=== PATIENT | male | born 1950 | race African-American/Black ===

== ENCOUNTER 2017-04-25 04:46 | Inpatient (IN) | payer MEDICARE ==
[~2017-04-25] VITALS: Ht 188 cm; Wt 59.4 kg
[2017-04-25] MEDS ORDERED: LANTUS SOL100 UNIT/1 SUBQ (04:49)
[2017-04-25] MEDS ORDERED: METFORMIN HCL500 M1 ORAL (04:49)
[2017-04-25 05:03] VITALS: BP 156/82
[2017-04-25 05:37] LABS: BASOPHILS % (AUTO) 1.4 % (0.0-2.0); EOSINOPHILS % (AUTO) 1.2 % (0.0-3.0); LYMPHOCYTES % (AUTO) 27.2 % (20.0-45.0); MEAN CORPUSCULAR HEMOGLOBIN 29.8 PG (27.0-31.0); MEAN CORPUSCULAR HGB CONC 32.1 G/DL (32.0-36.0); MEAN CORPUSCULAR VOLUME 93 FL (80-99); MEAN PLATELET VOLUME 6.2 FL (6.5-10.1); MONOCYTES % (AUTO) 9.8 % (1.0-10.0); NEUTROPHILS % (AUTO) 60.4 % (45.0-75.0); PLATELET COUNT 280 K/UL (150-450); RED BLOOD COUNT 3.76 M/UL (4.70-6.10); RED CELL DISTRIBUTION WIDTH 15.9 % (11.6-14.8); WHITE BLOOD COUNT 7.6 K/UL (4.8-10.8)
--- NOTE | 2017-04-25 05:45 | Emergency Room Report ---
History of Present Illness General Chief Complaint: Abnormal Labs Source: Patient, EMS Present Illness HPI Patient present by paramedics for reports of altered mental status Patient was found to be hypoglycemic by the paramedics glucose down into the 30s after being given dextrose he did improve and become more responsive here the patient does not have any recollection of the episode At this time he is a bit slow to respond however is answering questions appropriately Denies any headache denies any chest pain or shortness of breath He does have a history of diabetes and takes metformin along with subcutaneous insulin Denies any vomiting or diarrhea denies any fevers or chills Denies any change in his eating habits patient cannot recall those any change in medications Allergies: Coded Allergies: No Known Allergies (Unverified , 04/25/17) Patient History Past Medical History: see triage record Pertinent Family History: none Reviewed Nursing Documentation: PMH: Agreed, PSxH: Agreed Nursing Documentation-PMH Past Medical History: No History, Except For Hx Hypertension: Yes Hx Diabetes: Yes Review of Systems All Other Systems: limited - Other than the ones mentioned in the history of present illness all others are reviewed however they do stay limited due to the patient's mental status Physical Exam Vital Signs Date Time Temp Pulse Resp B/P (MAP) Pulse Ox O2 Delivery O2 Flow Rate FiO2 04/25/17 04:38 98.6 64 14 172/84 100 Room Air Sp02 EP Interpretation: reviewed, normal General Appearance: no apparent distress Head: normocephalic, atraumatic Eyes: bilateral eye PERRL, bilateral eye EOMI ENT: hearing grossly normal, normal pharynx Neck: full range of motion, supple Respiratory: lungs clear, normal breath sounds Cardiovascular #1: irregularly irregular Gastrointestinal: normal bowel sounds, non tender, soft Musculoskeletal: normal inspection Neurologic: alert, responsive - Some mild confusion Psychiatric: normal inspection Skin: normal color, no rash, warm/dry Lymphatic: no adenopathy Medical Decision Making Diagnostic Impression: Primary Impression: Hypoglycemia Additional Impression: Atrial fibrillation ER Course Patient is a fairly complex patient with multiple differential to consideration including but not limited to cardiac cardiopulmonary and vascular emergencies Patient's history of present illness is limited secondary to the patient's inability to provide history Have not been any other family members present Patient does not recall having the diagnosis of an irregular heart rate there is no question of this being a new-onset atrial fibrillation however the rate appears to be well-controlled EKG however is also abnormal with ST changes Patient continues to deny any chest pain Baseline blood work are obtained the also obtain CT head patient however is not candidate for any thrombolytic therapy given the presentation and criteria And otherwise requires further inpatient care Labs Test 04/25/17 05:05 White Blood Count 7.6 K/UL (4.8-10.8) Red Blood Count 3.76 M/UL (4.70-6.10) Hemoglobin 11.2 G/DL (14.2-18.0) Hematocrit 34.9 % (42.0-52.0) Mean Corpuscular Volume 93 FL (80-99) Mean Corpuscular Hemoglobin 29.8 PG (27.0-31.0) Mean Corpuscular Hemoglobin Concent 32.1 G/DL (32.0-36.0) Red Cell Distribution Width 15.9 % (11.6-14.8) Platelet Count 280 K/UL (150-450) Mean Platelet Volume 6.2 FL (6.5-10.1) Neutrophils (%) (Auto) 60.4 % (45.0-75.0) Lymphocytes (%) (Auto) 27.2 % (20.0-45.0) Monocytes (%) (Auto) 9.8 % (1.0-10.0) Eosinophils (%) (Auto) 1.2 % (0.0-3.0) Basophils (%) (Auto) 1.4 % (0.0-2.0) Sodium Level 144 mEQ/L (135-145) Potassium Level 3.8 mEQ/L (3.4-4.9) Chloride Level 100 mEQ/L (98-107) Carbon Dioxide Level 29 mEQ/L (20-30) Anion Gap 15 (5-15) Blood Urea Nitrogen 23 mg/dL (7-23) Creatinine 2.5 mg/dL (0.7-1.2) Estimat Glomerular Filtration Rate 31.5 mL/min (>60) Glucose Level 74 mg/dL (74-106) Calcium Level 10.0 mg/dL (8.6-10.2) Total Bilirubin 0.2 mg/dL (0.0-1.2) Aspartate Amino Transf (AST/SGOT) 13 U/L (5-40) Alanine Aminotransferase (ALT/SGPT) 8 U/L (3-41) Alkaline Phosphatase 130 U/L (40-129) Total Creatine Kinase 217 U/L (38-174) Creatine Kinase MB 4.7 ng/mL (< 6.7) Creatine Kinase MB Relative Index 2.1 Troponin I < 0.30 ng/mL (<=0.30) Total Protein 8.7 g/dL (6.6-8.7) Albumin 4.7 g/dL (3.5-5.2) Globulin 4.0 g/dL Albumin/Globulin Ratio 1.1 (1.0-2.7) EKG Diagnostic Results Rate: normal Rhythm: other - atrial fibrillation ST Segments: other - nonspecific ST and T-wave changes Rhythm Strip Diag. Results EP Interpretation: yes Rate: 88 Rhythm: no PVC's, no ectopy, other - irregularly irregular Chest X-Ray Diagnostic Results Chest X-Ray Diagnostic Results : Chest X-Ray Ordered: Yes # of Views/Limited/Complete: 1 View Indication: Chest Pain EP Interpretation: Yes Interpretation: no consolidation, no effusion, no pneumothorax Impression: No acute disease Interpreting ER Provider: Kari Desai, CT/MRI/US Diagnostic Results CT/MRI/US Diagnostic Results : Impression CT head:nad Last Vital Signs Date Time Temp Pulse Resp B/P (MAP) Pulse Ox O2 Delivery O2 Flow Rate FiO2 04/25/17 05:03 98.6 96 21 156/82 100 Room Air Status: improved Disposition: ADMITTED INPATIENT Condition: Serious Referrals: NOT CHOSEN IPA/,REFERRING (PCP) KARI DESAI D.O. Apr 25, 2017 05:45
[2017-04-25 05:49] LABS: TROPONIN I < 0.30 ng/mL (<=0.30)
[2017-04-25 05:50] LABS: ALBUMIN/GLOBULIN RATIO 1.1 (1.0-2.7); CREATININE 2.5 mg/dL (0.7-1.2); GLOMERULAR FILTRATION RATE 31.5 mL/min (>60); POTASSIUM 3.8 mEQ/L (3.4-4.9); TOTAL PROTEIN 8.7 g/dL (6.6-8.7)
[2017-04-25 06:00] LABS: CKMB 4.7 ng/mL (< 6.7)
[2017-04-25 07:06] LABS: PROTHROMBIN TIME 10.3 SEC (9.30-11.50)
[2017-04-25 08:04] VITALS: BP 142/75
[2017-04-25] MEDS ORDERED: NEURONTIN300 MG ORAL (08:34)
[2017-04-25] MEDS ORDERED: LIPITOR80 MG ORAL (08:35)
[2017-04-25] MEDS ORDERED: Enoxaparin 100mg Inj SUBQ ONE (09:00)
[2017-04-25] MEDS ORDERED: Enoxaparin 100mg Inj SUBQ SCH (09:00)
--- NOTE | 2017-04-25 09:00 | Diagnostic Imaging Report ---
Indication: Altered mental status Technique: Contiguous 5 mm thick transaxial imaging of the head obtained in a Siemens Sensation [address] scanner. Soft tissue and bone windows generated. Total Dose length Product (DLP): [address] Dose Index Volume (CTDIvol): 70.38, 0.15 mGy Comparison: none Findings: There is mild prominence of the ventricles, basal cisterns, and cerebral sulci consistent with atrophy. Mild, nonspecific, white matter hypoattenuation is noted throughout the brain consistent with chronic small vessel disease. There is no midline shift, edema, acute hemorrhage, mass effect, or abnormal extra-axial fluid collections. Bones and extra osseous soft tissues are unremarkable. Impression: No acute intracranial bleed, mass effect or edema. Mild atrophy of the brain. Nonspecific white matter hypoattenuation probably due to chronic small vessel disease. [facility] has communicated the preliminary results to the Emergency Department. Their findings are largely concordant with this report. The CT scanner at [facility] is accredited by the [employer] and the scans are performed using dose optimization techniques as appropriate to a performed exam including Automatic Exposure control.
[2017-04-25 10:25] VITALS: BP 142/75
--- NOTE | 2017-04-25 11:25 | Diagnostic Imaging Report ---
Indication: Dyspnea Comparison: None A single view chest radiograph was obtained. Findings: Cardiomediastinal appearance is within normal limits for age. Pulmonary vascularity is appropriate. The diaphragmatic contour is smooth and costophrenic angles are sharp. No pleural effusions are identified. The bones are unremarkable. Impression: No acute findings
[2017-04-25 11:29] VITALS: BP 134/83
[2017-04-25] MEDS ORDERED: COREG3.125 MG ORAL (13:20)
[2017-04-25] MEDS ORDERED: ATORVASTATIN CA10 MG ORAL (13:20)
[2017-04-25] MEDS ORDERED: NORVASC2.5 MG ORAL (13:20)
[2017-04-25] MEDS ORDERED: TAMSULOSIN HCL0.4 MG ORAL (13:20)
[2017-04-25] MEDS ORDERED: FINASTERIDE1 MG PO (13:20)
--- NOTE | 2017-04-25 13:27 | Consultation ---
History of Present Illness General Date patient seen: Apr 25, 2017 Chief Complaint: Abnormal Labs Referring physician: Dr. Medellin Reason for Consultation: inpatient manaqement Present Illness HPI 66 year old male with hx of DM, HTN, R BKA brought in by paramedics for reports of altered mental status Patient was found to be hypoglycemic by the paramedics glucose down into the 30s after being given dextrose he did improve and become more responsive. Pt was found to be in Afib and admitted to telemetry for rapid afib and hypoglycemia. Currently pt is comfortable and doesn't have any acute complains. Allergies: Coded Allergies: No Known Allergies (Unverified , 04/25/17) Medication History Scheduled Amlodipine Besylate (Norvasc), Unknown Dose ORAL DAILY, (Reported) Atorvastatin (Lipitor), 80 MG ORAL BEDTIME, (Reported) Atorvastatin Calcium* (Lipitor*), 10 MG ORAL BEDTIME, (Reported) Carvedilol (Coreg), 3.125 MG ORAL EVERY 12 HOURS, (Reported) Gabapentin (Neurontin), 300 MG ORAL BEDTIME, (Reported) Metformin Hcl* (Metformin Hcl*), 500 MG ORAL TWICE A DAY, (Reported) Tamsulosin Hcl (Tamsulosin Hcl*), 0.4 MG ORAL BEDTIME, (Reported) Miscellaneous Medications Finasteride (Finasteride), 1 MG PO, (Reported) Discontinued Medications Insulin Glargine (Lantus), 14 SUBQ BEDTIME, (Reported) Discontinued Reason: MD discontinued med Patient History Healthcare decision maker Resuscitation status Advanced Directive on File Past Medical/Surgical History Past Medical/Surgical History: (1) HTN (hypertension) (2) Diabetes mellitus Review of Systems All Other Systems: negative except mentioned in HPI Physical Exam General Appearance: cachetic Lines, tubes and drains: peripheral HEENT: normocephalic, atraumatic Respiratory/Chest: chest wall non-tender, normal breath sounds Cardiovascular/Chest: normal peripheral pulses, regular rhythm Abdomen: normal bowel sounds, non tender Genitourinary/Rectal: normal genital exam, normal rectal exam Extremities: normal range of motion Last 24 Hour Vital Signs Date Time Temp Pulse Resp B/P (MAP) Pulse Ox O2 Delivery O2 Flow Rate FiO2 04/25/17 11:29 97.7 94 20 134/83 100 Room Air 04/25/17 10:25 96.4 106 20 142/75 99 Room Air 04/25/17 10:25 117 18 151/82 100 Room Air 04/25/17 08:36 109 20 Room Air 04/25/17 08:04 96.4 106 21 142/75 99 Room Air 04/25/17 05:03 98.6 96 21 156/82 100 Room Air 04/25/17 04:38 98.6 64 14 172/84 100 Room Air Laboratory Tests Test 04/25/17 05:05 04/25/17 06:02 04/25/17 07:00 White Blood Count 7.6 K/UL (4.8-10.8) Red Blood Count 3.76 M/UL (4.70-6.10) L Hemoglobin 11.2 G/DL (14.2-18.0) L Hematocrit 34.9 % (42.0-52.0) L Mean Corpuscular Volume 93 FL (80-99) Mean Corpuscular Hemoglobin 29.8 PG (27.0-31.0) Mean Corpuscular Hemoglobin Concent 32.1 G/DL (32.0-36.0) Red Cell Distribution Width 15.9 % (11.6-14.8) H Platelet Count 280 K/UL (150-450) Mean Platelet Volume 6.2 FL (6.5-10.1) L Neutrophils (%) (Auto) 60.4 % (45.0-75.0) Lymphocytes (%) (Auto) 27.2 % (20.0-45.0) Monocytes (%) (Auto) 9.8 % (1.0-10.0) Eosinophils (%) (Auto) 1.2 % (0.0-3.0) Basophils (%) (Auto) 1.4 % (0.0-2.0) Sodium Level 144 mEQ/L (135-145) Potassium Level 3.8 mEQ/L (3.4-4.9) Chloride Level 100 mEQ/L (98-107) Carbon Dioxide Level 29 mEQ/L (20-30) Anion Gap 15 (5-15) Blood Urea Nitrogen 23 mg/dL (7-23) Creatinine 2.5 mg/dL (0.7-1.2) H Estimat Glomerular Filtration Rate 31.5 mL/min (>60) Glucose Level 74 mg/dL (74-106) Calcium Level 10.0 mg/dL (8.6-10.2) Total Bilirubin 0.2 mg/dL (0.0-1.2) Aspartate Amino Transf (AST/SGOT) 13 U/L (5-40) Alanine Aminotransferase (ALT/SGPT) 8 U/L (3-41) Alkaline Phosphatase 130 U/L (40-129) H Total Creatine Kinase 217 U/L (38-174) H Creatine Kinase MB 4.7 ng/mL (< 6.7) Creatine Kinase MB Relative Index 2.1 Troponin I < 0.30 ng/mL (<=0.30) Total Protein 8.7 g/dL (6.6-8.7) Albumin 4.7 g/dL (3.5-5.2) Globulin 4.0 g/dL Albumin/Globulin Ratio 1.1 (1.0-2.7) Prothrombin Time 10.3 SEC (9.30-11.50) Prothromb Time International Ratio 1.0 (0.9-1.1) Activated Partial Thromboplast Time 32 SEC (23-33) Urine Opiates Screen Negative (NEGATIVE) Urine Barbiturates Screen Negative (NEGATIVE) Phencyclidine (PCP) Screen Negative (NEGATIVE) Urine Amphetamines Screen Negative (NEGATIVE) Urine Benzodiazepines Screen Negative (NEGATIVE) Urine Cocaine Screen Negative (NEGATIVE) Urine Marijuana (THC) Screen Positive (NEGATIVE) H Height (Feet): 6 Height (Inches): 2.00 Weight (Pounds): 189 Medications Current Medications Medications (Trade) Dose Ordered Sig/Dragan Route PRN Reason Start Time Stop Time Status Last Admin Dose Admin Acetaminophen (Tylenol) 650 mg Q6H PRN ORAL headache 04/25/17 11:30 05/25/17 11:29 Atorvastatin Calcium (Lipitor) 80 mg BEDTIME ORAL 04/25/17 21:00 05/25/17 20:59 Dextrose (Dextrose 50%) STAT PRN IV Hypoglycemia 04/25/17 11:30 05/25/17 11:29 Gabapentin (Neurontin) 300 mg BEDTIME ORAL 04/25/17 21:00 05/25/17 20:59 Heparin Sodium (Porcine) (Heparin 5000 units/ml) 5,000 units EVERY 8 HOURS SUBQ 04/25/17 14:00 05/25/17 13:59 Insulin Aspart (NovoLOG) BEFORE MEALS AND HS SUBQ 04/25/17 16:30 05/25/17 16:29 Metformin HCl (Glucophage) 500 mg BID ORAL 04/26/17 09:00 05/26/17 08:59 UNV Assessment/Plan Problem List: (1) Hypoglycemia ICD Codes: E16.2 - Hypoglycemia, unspecified SNOMED: 599433694 (2) Atrial fibrillation ICD Codes: I48.91 - Unspecified atrial fibrillation SNOMED: 76254146 (3) Altered level of consciousness ICD Codes: R40.4 - Transient alteration of awareness SNOMED: 9345066 (4) HTN (hypertension) ICD Codes: I10 - Essential (primary) hypertension SNOMED: 21195395 Assessment/Plan sliding scale renal studies cardiac evaluation heparin drip monitor BP Cardizem prn for tachycardi BRIAN HERNANDEZ Apr 25, 2017 13:27
[2017-04-25] MEDS: NovoLOG Insulin Flexpen SUBQ SCH ×3 (13:29→21:02)
[2017-04-25] MEDS ORDERED: Heparin 5000 units/ml inj SUBQ SCH (14:00)
[2017-04-25] MEDS ORDERED: Diltiazem 25mg/5ml IV PRN (14:30)
--- NOTE | 2017-04-25 15:24 | History & Physical ---
History and Physical History & Physicial Dictated for Int Med-Dr Serrato no. [id number]. MARYANNE SMALLS Apr 25, 2017 15:24
[2017-04-25 15:25] VITALS: BP 157/79
[2017-04-25] MEDS ORDERED: NovoLOG Insulin Flexpen SUBQ SCH (16:30)
[2017-04-25] MEDS ORDERED: metFORMIN 500mg tab ORAL SCH (18:00)
[2017-04-25] MEDS ORDERED: Heparin 25,000u/D5W 500ml 500 ML IV SCH (18:30)
--- NOTE | 2017-04-25 18:55 | Cardiac Electrophysiology PN ---
Subjective Subjective [id number]. HTN, FIB. Objective Last 24 Hour Vital Signs Date Time Temp Pulse Resp B/P (MAP) Pulse Ox O2 Delivery O2 Flow Rate FiO2 04/25/17 15:25 98.1 79 20 157/79 99 Room Air 04/25/17 12:00 100 04/25/17 11:29 97.7 94 20 134/83 100 Room Air 04/25/17 10:25 96.4 106 20 142/75 99 Room Air 04/25/17 10:25 117 18 151/82 100 Room Air 04/25/17 08:36 109 20 Room Air 04/25/17 08:04 96.4 106 21 142/75 99 Room Air 04/25/17 05:03 98.6 96 21 156/82 100 Room Air 04/25/17 04:38 98.6 64 14 172/84 100 Room Air Intake and Output 04/25/17 04/26/17 19:00 07:00 Intake Total 480 ml Balance 480 ml Intake Oral 480 ml Laboratory Tests Test 04/25/17 05:05 04/25/17 06:02 04/25/17 07:00 04/25/17 14:50 White Blood Count 7.6 K/UL (4.8-10.8) Red Blood Count 3.76 M/UL (4.70-6.10) L Hemoglobin 11.2 G/DL (14.2-18.0) L Hematocrit 34.9 % (42.0-52.0) L Mean Corpuscular Volume 93 FL (80-99) Mean Corpuscular Hemoglobin 29.8 PG (27.0-31.0) Mean Corpuscular Hemoglobin Concent 32.1 G/DL (32.0-36.0) Red Cell Distribution Width 15.9 % (11.6-14.8) H Platelet Count 280 K/UL (150-450) Mean Platelet Volume 6.2 FL (6.5-10.1) L Neutrophils (%) (Auto) 60.4 % (45.0-75.0) Lymphocytes (%) (Auto) 27.2 % (20.0-45.0) Monocytes (%) (Auto) 9.8 % (1.0-10.0) Eosinophils (%) (Auto) 1.2 % (0.0-3.0) Basophils (%) (Auto) 1.4 % (0.0-2.0) Sodium Level 144 mEQ/L (135-145) Potassium Level 3.8 mEQ/L (3.4-4.9) Chloride Level 100 mEQ/L (98-107) Carbon Dioxide Level 29 mEQ/L (20-30) Anion Gap 15 (5-15) Blood Urea Nitrogen 23 mg/dL (7-23) Creatinine 2.5 mg/dL (0.7-1.2) H Estimat Glomerular Filtration Rate 31.5 mL/min (>60) Glucose Level 74 mg/dL (74-106) Calcium Level 10.0 mg/dL (8.6-10.2) Total Bilirubin 0.2 mg/dL (0.0-1.2) Aspartate Amino Transf (AST/SGOT) 13 U/L (5-40) Alanine Aminotransferase (ALT/SGPT) 8 U/L (3-41) Alkaline Phosphatase 130 U/L (40-129) H Total Creatine Kinase 217 U/L (38-174) H Creatine Kinase MB 4.7 ng/mL (< 6.7) Creatine Kinase MB Relative Index 2.1 Troponin I < 0.30 ng/mL (<=0.30) Total Protein 8.7 g/dL (6.6-8.7) Albumin 4.7 g/dL (3.5-5.2) Globulin 4.0 g/dL Albumin/Globulin Ratio 1.1 (1.0-2.7) Prothrombin Time 10.3 SEC (9.30-11.50) Prothromb Time International Ratio 1.0 (0.9-1.1) Activated Partial Thromboplast Time 32 SEC (23-33) 34 SEC (23-33) H Urine Opiates Screen Negative (NEGATIVE) Urine Barbiturates Screen Negative (NEGATIVE) Phencyclidine (PCP) Screen Negative (NEGATIVE) Urine Amphetamines Screen Negative (NEGATIVE) Urine Benzodiazepines Screen Negative (NEGATIVE) Urine Cocaine Screen Negative (NEGATIVE) Urine Marijuana (THC) Screen Positive (NEGATIVE) MADI TURNER Apr 25, 2017 18:55
[2017-04-25 20:00] VITALS: BP 159/80
[2017-04-25 20:48] LABS: APPEARANCE,URINE CLEAR; KETONES,URINE NEGATIVE (NEGATIVE); LEUKOCYTE ESTERASE ,URINE NEGATIVE (NEGATIVE); NITRITE,URINE NEGATIVE (NEGATIVE); PH,URINE 6 (4.5-8.0); PROTEIN,URINE 3+ (NEGATIVE); UROBILINOGEN,URINE NORMAL MG/DL (0.0-1.0)
[2017-04-25] MEDS: Atorvastatin 80mg tab ORAL SCH (20:58)
[2017-04-25 20:59] LABS: WBC,URINE 0-2 /HPF (0 - 0)
[2017-04-25 21:00] LABS: BACTERIA,URINE OCCASIONAL /HPF; SQUAMOUS EPITHELIAL CELL,UR FEW /LPF (NONE/OCC)
[2017-04-25] MEDS ORDERED: Atorvastatin 80mg tab ORAL SCH (21:00)
--- NOTE | 2017-04-25 21:15 | History and Physical Report ---
DATE OF ADMISSION: 04/25/2017 CHIEF COMPLAINT: The patient is a 66-year-old male, presents with a chief complaint of altered mental status. HISTORY OF PRESENT ILLNESS: The patient has a history of diabetes type 2. The patient states he ate a snack last evening around 10 o'clock. The patient then went to the restroom. The patient began to feel dizzy. The patient states he was unable to walk. The patient had given himself his usual insulin dose. The patient lives with a roommate. Roommate called 911 after the patient became altered. Upon arrival at the patient's home, the patient's blood sugar was in the 30s. The patient was given D50 in the field. The patient presented to [facility] emergency room. The patient continued to have altered mental status. The patient was admitted for hypoglycemia and altered mental status. PAST MEDICAL HISTORY: Significant for: 1. Type 2 diabetes. 2. Hypertension. 3. Hypercholesterolemia. 4. History of atrial fibrillation. PAST SURGICAL HISTORY: Significant for right [id number] amputation. CURRENT MEDICATIONS: 1. Norvasc 2.5 mg one tablet p.o. daily. 2. Atorvastatin 80 mg one tablet p.o. at bedtime. 3. Carvedilol 3.125 mg one tablet p.o. twice daily. 4. Finasteride 1 mg one tablet p.o. daily. 5. Neurontin 300 mg one tablet p.o. at bedtime. 6. Metformin 500 mg one tablet p.o. twice daily. 7. Flomax 0.4 mg one tablet p.o. at bedtime. 8. Insulin of an unknown dose before meals. ALLERGIES: No known drug allergies. SOCIAL HISTORY: The patient is a . The patient lives with a roommate. The patient admits to tobacco use one pack per day. The patient denies alcohol use. The patient is disabled. REVIEW OF SYSTEMS: Constitutional: The patient denies weight loss or weight gain. The patient denies fevers or chills. HEENT: The patient denies ear or throat pain. The patient denies headache. Cardiovascular: The patient denies palpitations or chest pain. Chest: The patient denies wheeze or shortness of breath. Abdomen: The patient denies nausea, vomiting, diarrhea, or constipation. Genitourinary: The patient denies dysuria or increased frequency of urination. Neuromuscular: The patient complains of altered mental status as above. The patient denies seizures or generalized weakness. PHYSICAL EXAMINATION: VITAL SIGNS: Temperature 98.6 degrees, respirations 14, pulse 64, and blood pressure 172/84. GENERAL: The patient is a well-developed and well-nourished thin-appearing male, in no apparent distress. HEENT: Eyes, pupils equal and responsive to light and accommodation. Extraocular movements are intact. NECK: Supple without lymphadenopathy. CHEST: Lungs are clear to auscultation bilaterally without wheezes or rales. CARDIOVASCULAR: Regular rate. S1 and S2 are normal without murmurs, rubs, or gallops. ABDOMEN: Soft, nontender, and nondistended. Positive bowel sounds. No evidence of hepatosplenomegaly. Currently, no rebound or guarding noted. EXTREMITIES: Negative for clubbing, cyanosis, or edema. RECTAL/GENITAL: Refused. NEUROLOGIC: Cranial nerves II through XII are grossly intact without focal deficits. Motor strength is 5/5 bilaterally. Deep tendon reflexes are 2+ plantar. LABORATORY STUDIES: WBC 7.6, hemoglobin 11.2, hematocrit 34.9, and platelets 280,000. Sodium 144, potassium 3.8, chloride 100, CO2 29, BUN 23, creatinine 2.5, and glucose 74. Troponin less than 0.3. EKG showed atrial fibrillation with a ventricular rate of approximately 90 beats per minute. ASSESSMENT: This is a 66-year-old male. 1. Diabetes type 2. 2. Hypoglycemia. 3. Altered mental status. 4. Hypertension. 5. Hypercholesterolemia. 6. New onset atrial fibrillation. TREATMENT: 1. Altered mental status/hypoglycemia. The patient has received D50 in the field. The patient is currently on a regular insulin sliding scale. The patient has been restarted on metformin. 2. Hypertension. Continue Cardizem as above. 3. Hypercholesterolemia. Continue Lipitor as above. 4. Atrial fibrillation. Cardiology consultation was obtained with Dr. Pradeep Ortiz. We will follow recommendations of Dr. Ortiz. 5. History of right [id number] amputation. Felton Medellin M.D. DR: CHRISTOS JOB#: [id number] CC:
[2017-04-25] MEDS: Tamsulosin 0.4mg cap ORAL SCH (22:21)
[2017-04-26] VITALS (9 sets, daily range): BP systolic 138–178; BP diastolic 65–92
[2017-04-26] MEDS: NovoLOG Insulin Flexpen SUBQ SCH ×4 (06:45→21:00)
--- NOTE | 2017-04-26 06:45 | Consultation ---
DATE OF CONSULTATION: 04/25/2017 ELECTROPHYSIOLOGY CONSULTATION HISTORY OF PRESENT ILLNESS: The patient is a 66-year-old gentleman with a history of hypertension, who was brought in by paramedics for altered mental status. The patient was felt to be hypoglycemic with glucose down to 30s. The patient received dextrose that improved and became more responsive. However, the patient was found to be in atrial fibrillation and was admitted and a Cardiology consultation was obtained for further evaluation and management. Per paramedics, her blood pressure was 172/84. SOCIAL HISTORY: He does not smoke or drink alcohol. FAMILY HISTORY: Noncontributory. REVIEW OF SYSTEMS: Negative other than what was mentioned in the history of present illness. He denies prior myocardial infarction or congestive heart failure or atrial fibrillation. PHYSICAL EXAMINATION: VITAL SIGNS: Blood pressure is 157/79, pulse 79, respirations 20, and temperature 98.1 degrees. HEAD AND NECK: Shows no JVD. LUNGS: Coarse rhonchi. CARDIOVASCULAR: Shows regular S1 and S2 with no gallop or murmur. ABDOMEN: Soft. EXTREMITIES: There is 1+ pitting edema. DIAGNOSTIC DATA: His EKG shows atrial fibrillation with rate of 88 with inferolateral ischemia. LABORATORY DATA: White count of 7.7, hemoglobin 11.2, hematocrit 35, and platelet count of 280,000. Sodium 141, potassium 3.8, BUN of 23, creatinine 2.5, and glucose of 74. Troponin is negative. Urine toxicology positive for marijuana. ASSESSMENT AND PLAN: 1. Atrial fibrillation. This is newly diagnosed. The patient is on heparin drip per protocol. Start the patient on low-dose metoprolol 25 mg b.i.d. to prevent atrial fibrillation with rapid ventricular response. I will watch the patient on telemetry. In view of history of hypertension, he probably would need long-term anticoagulation. 2. Hyperlipidemia. 3. diabetes, on insulin. Thank you very much, Dr. Serrato for allowing me to participate in the care of this patient. Please do not hesitate to contact me for any questions regarding my evaluation. Pradeep Ortiz M.D. DR: REZA JOB#: [id number] CC:
[2017-04-26 07:33] LABS: BASOPHILS % (AUTO) 0.8 % (0.0-2.0); EOSINOPHILS % (AUTO) 1.3 % (0.0-3.0); LYMPHOCYTES % (AUTO) 21.6 % (20.0-45.0); MEAN CORPUSCULAR HEMOGLOBIN 30.4 PG (27.0-31.0); MEAN CORPUSCULAR HGB CONC 32.5 G/DL (32.0-36.0); MEAN CORPUSCULAR VOLUME 94 FL (80-99); MEAN PLATELET VOLUME 6.4 FL (6.5-10.1); MONOCYTES % (AUTO) 11.9 % (1.0-10.0); NEUTROPHILS % (AUTO) 64.4 % (45.0-75.0); PLATELET COUNT 229 K/UL (150-450); RED BLOOD COUNT 2.99 M/UL (4.70-6.10); WHITE BLOOD COUNT 10.5 K/UL (4.8-10.8)
--- NOTE | 2017-04-26 07:39 | Pulmonology Progress Note ---
Assessment/Plan Assessment/Plan ASSESSMENT acute metabolic encephalopathy 2 to hypoglycemia hypoglycemia -resolved A fib with RVR -converted to SR acute renal failure on CRI ( due to bladder outlet obstruction) anemia DM HTN R BKA stump wound BLE pain severe protein calorie malnutrition urinary retention bladder outlet obstruction PLAN OF CARE tele CT head no acute IC pathology off heparin gtt , converted to NSR BP management cardio follows ECHO with pEF 55% and RVSP of 16 renal US with PVR 922 cc and evidence of bladder outlet obstruction monitor renal parameters, lytes creat trending down O2 prn to keep sat above 92% pulmonary toilet BS management with SS of insulin, check HgbA1c , dc Metformin ( creat high) DVT prophylaxis pain management Venous and Arterial Duplex BLE wound nurse eval for R BKA stump wound care as per wound nurse recommendations anemia w/up, monitor HH, transfuse prn urology consult pending ( dr Cruz) started on Flomax dietary eval, check prealbumin case discussed and evaluated by supervising physician Subjective Allergies: Coded Allergies: No Known Allergies (Unverified , 04/25/17) Subjective converted to NSR off Heparin gtt c/o BLE pain denies chest pain, SOB HH trending down 922 cc on renal US Objective Last 24 Hour Vital Signs Date Time Temp Pulse Resp B/P (MAP) Pulse Ox O2 Delivery O2 Flow Rate FiO2 04/26/17 04:20 98.1 67 20 155/73 100 Room Air 04/26/17 04:00 80 04/26/17 00:10 70 155/65 04/26/17 00:05 98.0 66 20 164/69 100 Room Air 04/25/17 20:00 97.9 73 20 159/80 100 Room Air 04/25/17 20:00 77 04/25/17 16:00 74 04/25/17 15:25 98.1 79 20 157/79 99 Room Air 04/25/17 12:00 100 04/25/17 11:29 97.7 94 20 134/83 100 Room Air 04/25/17 10:25 96.4 106 20 142/75 99 Room Air 04/25/17 10:25 117 18 151/82 100 Room Air 04/25/17 08:36 109 20 Room Air 04/25/17 08:04 96.4 106 21 142/75 99 Room Air General Appearance: WD/WN, cachetic, other - AA male in NAD HEENT: normocephalic, atraumatic Respiratory/Chest: lungs clear - with moderate air exchange , no respiratory distress Cardiovascular: normal rate - SR on tele, regular rhythm Abdomen: soft, non tender, non distended Genitourinary: normal external genitalia Extremities: other - R BKA stump with small wound Neurologic/Psychiatric: alert, responsive Musculoskeletal: normal muscle bulk Laboratory Tests 04/25/17 14:50: Activated Partial Thromboplast Time 34H 04/25/17 20:20: Urine Color Pale yellow, Urine Appearance Clear, Urine pH 6, Urine Specific [place] 1.010, Urine Protein 3+H, Urine Glucose (UA) 3+H, Urine Ketones Negative , Urine Occult Blood 1+H, Urine Nitrite Negative, Urine Bilirubin Negative, Urine Urobilinogen Normal, Urine Leukocyte Esterase Negative, Urine RBC 2-4H, Urine WBC 0-2, Urine Squamous Epithelial Cells Few, Urine Bacteria Occasional, Urine Eosinophils None seen, Urine Random Sodium 80, Urine Potassium Timed 31 04/26/17 04:40: White Blood Count [Pending], Red Blood Count [Pending], Hemoglobin [Pending], Hematocrit [Pending], Mean Corpuscular Volume [Pending], Mean Corpuscular Hemoglobin [Pending], Mean Corpuscular Hemoglobin Concent [Pending], Red Cell Distribution Width [Pending], Platelet Count [Pending], Mean Platelet Volume [ Pending], Neutrophils (%) (Auto) [Pending], Lymphocytes (%) (Auto) [Pending], Monocytes (%) (Auto) [Pending], Eosinophils (%) (Auto) [Pending], Basophils (%) (Auto) [Pending], Sodium Level [Pending], Potassium Level [Pending], Chloride Level [Pending], Carbon Dioxide Level [Pending], Blood Urea Nitrogen [Pending], Creatinine [Pending], Estimat Glomerular Filtration Rate [Pending], Glucose Level [Pending], Hemoglobin A1c [Pending], Calcium Level [Pending], Magnesium Level [Pending], Total Bilirubin [Pending], Aspartate Amino Transf (AST/SGOT) [ Pending], Alanine Aminotransferase (ALT/SGPT) [Pending], Alkaline Phosphatase [ Pending], Total Creatine Kinase [Pending], Troponin I [Pending], Pro-B-Type Natriuretic Peptide [Pending], Total Protein [Pending], Albumin [Pending], Globulin [Pending], Triglycerides Level [Pending], Cholesterol Level [Pending], LDL Cholesterol [Pending], HDL Cholesterol [Pending], Cholesterol/HDL Ratio [ Pending], Thyroid Stimulating Hormone (TSH) [Pending], Free Thyroxine [Pending] Current Medications Medications (Trade) Dose Ordered Sig/Dragan Route PRN Reason Start Time Stop Time Status Last Admin Dose Admin Acetaminophen (Tylenol) 650 mg Q6H PRN ORAL Prn Headache/Temp > 101 04/25/17 23:30 05/25/17 23:29 Atorvastatin Calcium (Lipitor) 80 mg BEDTIME ORAL 04/25/17 21:00 05/25/17 20:59 04/25/17 20:58 Dextrose (Dextrose 50%) STAT PRN IV Hypoglycemia 04/25/17 11:30 05/25/17 11:29 Diltiazem HCl (Cardizem) 10 mg Q1H PRN IV heart rate more than 120, 04/25/17 14:30 05/25/17 14:29 Gabapentin (Neurontin) 300 mg BEDTIME ORAL 04/25/17 21:00 05/25/17 20:59 04/25/17 20:58 Insulin Aspart (NovoLOG) BEFORE MEALS AND HS SUBQ 04/25/17 16:30 05/25/17 16:29 04/26/17 06:45 Tamsulosin HCl (Flomax) 0.4 mg BEDTIME ORAL 04/25/17 22:00 05/25/17 21:59 04/25/17 22:21 Ellie Armando NP ([facility]) Apr 26, 2017 07:38
[2017-04-26 07:43] LABS: TROPONIN I < 0.30 ng/mL (<=0.30)
[2017-04-26 08:10] LABS: CALCIUM 8.9 mg/dL (8.6-10.2); CHOLESTEROL/HDL RATIO 3.1 (3.3-4.4); CREATININE 2.2 mg/dL (0.7-1.2); GLOMERULAR FILTRATION RATE 36.5 mL/min (>60); MAGNESIUM 2.2 mg/dL (1.7-2.5); POTASSIUM 4.2 mEQ/L (3.4-4.9); TOTAL PROTEIN 6.9 g/dL (6.6-8.7)
[2017-04-26 08:15] LABS: THYROID STIMULATING HORMONE 0.979 uIU/mL (0.300-4.500)
--- NOTE | 2017-04-26 09:13 | Diagnostic Imaging Report ---
Indication:Elevated Bun and Creatinine. Technique: Grayscale and duplex Doppler imaging of the kidneys performed. Comparison: None Findings: Kidneys are not well seen. There is no obvious hydronephrosis. There are small bilateral renal cysts. Kidneys may be echogenic. Right kidney is measured is 9.8 cm in length. Left kidney is 10 cm in length. Postvoid residual 922 cc demonstrated. IVC is unremarkable. Impression: Bladder outlet obstruction/impediment. Poor visualization of the kidneys which are probably echogenic. Findings suggestive of medical renal disease. Bilateral renal cysts
[2017-04-26 11:27] LABS: HEMOLYSIS 12; IRON 59 ug/dL (59-158); TOTAL IRON BINDING CAPACITY 233 ug/dL (250-400)
[2017-04-26 11:36] LABS: FERRITIN 140 ng/mL (10-230)
[2017-04-26] MEDS: Morphine Sulfate 2mg/ml Inj IVP PRN ×2 (12:24→21:55)
--- NOTE | 2017-04-26 13:25 | Internal Med Progress Note ---
Subjective Date of Service: Apr 26, 2017 Physician Name Maryanne Smalls Attending Physician Bruno Serrato MD Current Medications Medications (Trade) Dose Ordered Sig/Dragan Route PRN Reason Start Time Stop Time Status Last Admin Dose Admin Acetaminophen (Tylenol) 650 mg Q6H PRN ORAL Prn Headache/Temp > 101 04/25/17 23:30 05/25/17 23:29 04/26/17 11:07 Atorvastatin Calcium (Lipitor) 80 mg BEDTIME ORAL 04/25/17 21:00 05/25/17 20:59 04/25/17 20:58 Dextrose (Dextrose 50%) STAT PRN IV Hypoglycemia 04/25/17 11:30 05/25/17 11:29 Diltiazem HCl (Cardizem) 10 mg Q1H PRN IV heart rate more than 120, 04/25/17 14:30 05/25/17 14:29 Gabapentin (Neurontin) 300 mg BEDTIME ORAL 04/25/17 21:00 05/25/17 20:59 04/25/17 20:58 Heparin Sodium (Porcine) (Heparin 5000 units/ml) 5,000 units EVERY 12 HOURS SUBQ 04/26/17 21:00 05/26/17 20:59 Insulin Aspart (NovoLOG) BEFORE MEALS AND HS SUBQ 04/25/17 16:30 05/25/17 16:29 04/26/17 12:20 Morphine Sulfate (Morphine Sulfate) 2 mg Q4H PRN IVP For Pain 04/26/17 11:00 05/03/17 10:59 04/26/17 12:24 Tamsulosin HCl (Flomax) 0.4 mg BEDTIME ORAL 04/25/17 22:00 05/25/17 21:59 04/25/17 22:21 Allergies: Coded Allergies: No Known Allergies (Unverified , 04/25/17) ROS Limited/Unobtainable: No Constitutional: Reports: no symptoms HEENT: Reports: no symptoms Cardiovascular: Reports: no symptoms Gastrointestinal/Abdominal: Reports: no symptoms Genitourinary: Reports: no symptoms Neurologic/Psychiatric: Reports: no symptoms Subjective 66 YO M admitted with altered mental status and hypoglycemia. Cover for [facility] -Dr Serrato. Objective Last Vital Signs Date Time Temp Pulse Resp B/P (MAP) Pulse Ox O2 Delivery O2 Flow Rate FiO2 04/26/17 11:30 98.1 71 20 171/81 100 Room Air General Appearance: alert, thin EENT: PERRL/EOMI, normal ENT inspection Neck: non-tender, normal alignment, supple, normal inspection Cardiovascular: normal peripheral pulses, normal rate, regular rhythm, no gallop/murmur, no JVD Respiratory/Chest: chest wall non-tender, lungs clear, normal breath sounds, no respiratory distress, no accessory muscle use Abdomen: normal bowel sounds, non tender, soft, no organomegaly, no mass Extremities: normal range of motion 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: 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 II-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 grossly normal, no motor/sensory deficits Skin: normal pigmentation, warm/dry Laboratory Tests Test 04/25/17 14:50 04/25/17 20:20 04/26/17 04:40 Activated Partial Thromboplast Time 34 SEC (23-33) H Urine Color Pale yellow Urine Appearance Clear Urine pH 6 (4.5-8.0) Urine Specific [place] 1.010 (1.005-1.035) Urine Protein 3+ (NEGATIVE) H Urine Glucose (UA) 3+ (NEGATIVE) H Urine Ketones Negative (NEGATIVE) Urine Occult Blood 1+ (NEGATIVE) H Urine Nitrite Negative (NEGATIVE) Urine Bilirubin Negative (NEGATIVE) Urine Urobilinogen Normal MG/DL (0.0-1.0) Urine Leukocyte Esterase Negative (NEGATIVE) Urine RBC 2-4 /HPF (0 - 0) H Urine WBC 0-2 /HPF (0 - 0) Urine Squamous Epithelial Cells Few /LPF (NONE/OCC) Urine Bacteria Occasional /HPF (NONE) Urine Eosinophils None seen Urine Random Sodium 80 mmol/L Urine Potassium Timed 31 mmol/L White Blood Count 10.5 K/UL (4.8-10.8) Red Blood Count 2.99 M/UL (4.70-6.10) L Hemoglobin 9.1 G/DL (14.2-18.0) L Hematocrit 28.1 % (42.0-52.0) L Mean Corpuscular Volume 94 FL (80-99) Mean Corpuscular Hemoglobin 30.4 PG (27.0-31.0) Mean Corpuscular Hemoglobin Concent 32.5 G/DL (32.0-36.0) Red Cell Distribution Width 16.0 % (11.6-14.8) H Platelet Count 229 K/UL (150-450) Mean Platelet Volume 6.4 FL (6.5-10.1) L Neutrophils (%) (Auto) 64.4 % (45.0-75.0) Lymphocytes (%) (Auto) 21.6 % (20.0-45.0) Monocytes (%) (Auto) 11.9 % (1.0-10.0) H Eosinophils (%) (Auto) 1.3 % (0.0-3.0) Basophils (%) (Auto) 0.8 % (0.0-2.0) Sodium Level 135 mEQ/L (135-145) Potassium Level 4.2 mEQ/L (3.4-4.9) Chloride Level 98 mEQ/L (98-107) Carbon Dioxide Level 23 mEQ/L (20-30) Anion Gap 14 (5-15) Blood Urea Nitrogen 29 mg/dL (7-23) H Creatinine 2.2 mg/dL (0.7-1.2) H Estimat Glomerular Filtration Rate 36.5 mL/min (>60) Glucose Level 154 mg/dL (74-106) H Hemoglobin A1c 10.0 % (< 6.0) H Calcium Level 8.9 mg/dL (8.6-10.2) Magnesium Level 2.2 mg/dL (1.7-2.5) Iron Level 59 ug/dL (59-158) Total Iron Binding Capacity 233 ug/dL (250-400) L Percent Iron Saturation 25 % (15-50) Unsaturated Iron Binding 174 ug/dL (112-346) Ferritin 140 ng/mL (10-230) Total Bilirubin 0.2 mg/dL (0.0-1.2) Aspartate Amino Transf (AST/SGOT) 11 U/L (5-40) Alanine Aminotransferase (ALT/SGPT) 6 U/L (3-41) Alkaline Phosphatase 120 U/L (40-129) Total Creatine Kinase 177 U/L (38-174) H Troponin I < 0.30 ng/mL (<=0.30) Pro-B-Type Natriuretic Peptide 2451 pg/mL (0-125) H Total Protein 6.9 g/dL (6.6-8.7) Albumin 3.6 g/dL (3.5-5.2) Globulin 3.3 g/dL Albumin/Globulin Ratio 1.0 (1.0-2.7) Triglycerides Level 76 mg/dL (< 150) Cholesterol Level 177 mg/dL (< 200) LDL Cholesterol 105 mg/dL (60-99) H HDL Cholesterol 57 mg/dL (> 60) Cholesterol/HDL Ratio 3.1 (3.3-4.4) L Vitamin B12 Level 492 pg/mL (211-946) RBC Folate Hemolysate Pending Red Blood Cell Folate Pending Thyroid Stimulating Hormone (TSH) 0.979 uIU/mL (0.300-4.500) Free Thyroxine 1.27 ng/dL (0.86-1.85) Intake and Output 04/26/17 04/27/17 19:00 07:00 Intake Total 120 ml Balance 120 ml Intake Oral 120 ml Assessment/Plan Problem List: (1) Altered mental status Assessment & Plan: Due to hypoglycemia. Resolved (2) Renal failure Assessment & Plan: ?diabetic nephropathy?-see ultrasound (3) Hypercholesteremia Assessment & Plan: Cont lipitor (4) Right BKA infection (5) Hypoglycemia Assessment & Plan: Resolved. continue novolog sliding scale. (6) HTN (hypertension) Assessment & Plan: Cont cardizem (7) Diabetes mellitus Assessment & Plan: Continue novolog sliding scale. (8) Atrial fibrillation Assessment & Plan: See cardiology note. Status: progressing MARYANNE SMALLS Apr 26, 2017 13:24
--- NOTE | 2017-04-26 14:50 | Cardiac Electrophysiology PN ---
Assessment/Plan Assessment/Plan 1. Newly diagnosed Atrial fibrillation. Start Carvedilol 6.25 mg b.i.d. Converted to SR. Start Eliquis 5 bid 2. HTN Coreg 6.25 bid 2. Hyperlipidemia. 3. Diabetes, on insulin. $. CKD Cr 2.5 Subjective Subjective Remained in SR overnight. No chest pain or SOB.. Objective Last 24 Hour Vital Signs Date Time Temp Pulse Resp B/P (MAP) Pulse Ox O2 Delivery O2 Flow Rate FiO2 04/26/17 12:00 69 04/26/17 11:30 98.1 71 20 171/81 100 Room Air 04/26/17 08:00 68 04/26/17 07:51 98.2 73 20 138/65 100 Room Air 04/26/17 04:20 98.1 67 20 155/73 100 Room Air 04/26/17 04:00 80 04/26/17 00:10 70 155/65 04/26/17 00:05 98.0 66 20 164/69 100 Room Air 04/25/17 20:00 97.9 73 20 159/80 100 Room Air 04/25/17 20:00 77 04/25/17 16:00 74 04/25/17 15:25 98.1 79 20 157/79 99 Room Air Intake and Output 04/26/17 04/27/17 19:00 07:00 Intake Total 320 ml Balance 320 ml Intake Oral 320 ml Laboratory Tests Test 04/25/17 14:50 04/25/17 20:20 04/26/17 04:40 Activated Partial Thromboplast Time 34 SEC (23-33) H Urine Color Pale yellow Urine Appearance Clear Urine pH 6 (4.5-8.0) Urine Specific [place] 1.010 (1.005-1.035) Urine Protein 3+ (NEGATIVE) H Urine Glucose (UA) 3+ (NEGATIVE) H Urine Ketones Negative (NEGATIVE) Urine Occult Blood 1+ (NEGATIVE) H Urine Nitrite Negative (NEGATIVE) Urine Bilirubin Negative (NEGATIVE) Urine Urobilinogen Normal MG/DL (0.0-1.0) Urine Leukocyte Esterase Negative (NEGATIVE) Urine RBC 2-4 /HPF (0 - 0) H Urine WBC 0-2 /HPF (0 - 0) Urine Squamous Epithelial Cells Few /LPF (NONE/OCC) Urine Bacteria Occasional /HPF (NONE) Urine Eosinophils None seen Urine Random Sodium 80 mmol/L Urine Potassium Timed 31 mmol/L White Blood Count 10.5 K/UL (4.8-10.8) Red Blood Count 2.99 M/UL (4.70-6.10) L Hemoglobin 9.1 G/DL (14.2-18.0) L Hematocrit 28.1 % (42.0-52.0) L Mean Corpuscular Volume 94 FL (80-99) Mean Corpuscular Hemoglobin 30.4 PG (27.0-31.0) Mean Corpuscular Hemoglobin Concent 32.5 G/DL (32.0-36.0) Red Cell Distribution Width 16.0 % (11.6-14.8) H Platelet Count 229 K/UL (150-450) Mean Platelet Volume 6.4 FL (6.5-10.1) L Neutrophils (%) (Auto) 64.4 % (45.0-75.0) Lymphocytes (%) (Auto) 21.6 % (20.0-45.0) Monocytes (%) (Auto) 11.9 % (1.0-10.0) H Eosinophils (%) (Auto) 1.3 % (0.0-3.0) Basophils (%) (Auto) 0.8 % (0.0-2.0) Sodium Level 135 mEQ/L (135-145) Potassium Level 4.2 mEQ/L (3.4-4.9) Chloride Level 98 mEQ/L (98-107) Carbon Dioxide Level 23 mEQ/L (20-30) Anion Gap 14 (5-15) Blood Urea Nitrogen 29 mg/dL (7-23) H Creatinine 2.2 mg/dL (0.7-1.2) H Estimat Glomerular Filtration Rate 36.5 mL/min (>60) Glucose Level 154 mg/dL (74-106) H Hemoglobin A1c 10.0 % (< 6.0) H Calcium Level 8.9 mg/dL (8.6-10.2) Magnesium Level 2.2 mg/dL (1.7-2.5) Iron Level 59 ug/dL (59-158) Total Iron Binding Capacity 233 ug/dL (250-400) L Percent Iron Saturation 25 % (15-50) Unsaturated Iron Binding 174 ug/dL (112-346) Ferritin 140 ng/mL (10-230) Total Bilirubin 0.2 mg/dL (0.0-1.2) Aspartate Amino Transf (AST/SGOT) 11 U/L (5-40) Alanine Aminotransferase (ALT/SGPT) 6 U/L (3-41) Alkaline Phosphatase 120 U/L (40-129) Total Creatine Kinase 177 U/L (38-174) H Troponin I < 0.30 ng/mL (<=0.30) Pro-B-Type Natriuretic Peptide 2451 pg/mL (0-125) H Total Protein 6.9 g/dL (6.6-8.7) Albumin 3.6 g/dL (3.5-5.2) Globulin 3.3 g/dL Albumin/Globulin Ratio 1.0 (1.0-2.7) Triglycerides Level 76 mg/dL (< 150) Cholesterol Level 177 mg/dL (< 200) LDL Cholesterol 105 mg/dL (60-99) H HDL Cholesterol 57 mg/dL (> 60) Cholesterol/HDL Ratio 3.1 (3.3-4.4) L Vitamin B12 Level 492 pg/mL (211-946) RBC Folate Hemolysate Pending Red Blood Cell Folate Pending Thyroid Stimulating Hormone (TSH) 0.979 uIU/mL (0.300-4.500) Free Thyroxine 1.27 ng/dL (0.86-1.85) Objective HEAD AND NECK: Shows no JVD. LUNGS: Coarse rhonchi. CARDIOVASCULAR: Shows regular S1 and S2 with no gallop or murmur. ABDOMEN: Soft. EXTREMITIES: There is 1+ pitting edema. MADI MAYBERRY Apr 26, 2017 14:50
[2017-04-26] MEDS: Eliquis 2.5mg tablet ORAL SCH (17:09)
[2017-04-26] MEDS ORDERED: Heparin 5000 units/ml inj SUBQ SCH (21:00)
[2017-04-26] MEDS: Tamsulosin 0.4mg cap ORAL SCH (21:56)
[2017-04-26] MEDS: Atorvastatin 80mg tab ORAL SCH (21:57)
[2017-04-26] MEDS: Carvedilol 6.25mg Tab ORAL SCH (21:58)
[2017-04-27 03:52] VITALS: BP 150/73
[2017-04-27] MEDS: NovoLOG Insulin Flexpen SUBQ SCH ×4 (06:20→21:00)
[2017-04-27 07:49] VITALS: BP 116/66
[2017-04-27 08:00] LABS: GLOMERULAR FILTRATION RATE 40.7 mL/min (>60); POTASSIUM 4.5 mEQ/L (3.4-4.9)
[2017-04-27 08:19] LABS: BASOPHILS % (AUTO) 0.7 % (0.0-2.0); EOSINOPHILS % (AUTO) 1.1 % (0.0-3.0); LYMPHOCYTES % (AUTO) 25.5 % (20.0-45.0); MEAN CORPUSCULAR HEMOGLOBIN 29.7 PG (27.0-31.0); MEAN CORPUSCULAR HGB CONC 32.3 G/DL (32.0-36.0); MEAN CORPUSCULAR VOLUME 92 FL (80-99); MEAN PLATELET VOLUME 7.1 FL (6.5-10.1); MONOCYTES % (AUTO) 7.4 % (1.0-10.0); NEUTROPHILS % (AUTO) 65.4 % (45.0-75.0); PLATELET COUNT 254 K/UL (150-450); RED BLOOD COUNT 3.12 M/UL (4.70-6.10); RED CELL DISTRIBUTION WIDTH 16.1 % (11.6-14.8); WHITE BLOOD COUNT 9.4 K/UL (4.8-10.8)
[2017-04-27] MEDS: Eliquis 2.5mg tablet ORAL SCH ×2 (08:49→17:07)
[2017-04-27] MEDS: Carvedilol 6.25mg Tab ORAL SCH ×2 (08:49→20:28)
[2017-04-27] MEDS: Morphine Sulfate 2mg/ml Inj IVP PRN ×3 (10:08→20:22)
[2017-04-27 11:37] VITALS: BP 136/64
--- NOTE | 2017-04-27 13:17 | Internal Med Progress Note ---
Subjective Date of Service: Apr 27, 2017 Physician Name Maryanne Smalls Attending Physician Bruno Serrato MD Current Medications Medications (Trade) Dose Ordered Sig/Dragan Route PRN Reason Start Time Stop Time Status Last Admin Dose Admin Acetaminophen (Tylenol) 650 mg Q6H PRN ORAL Prn Headache/Temp > 101 04/25/17 23:30 05/25/17 23:29 04/26/17 11:07 Apixaban (Eliquis) 2.5 mg BID ORAL 04/27/17 18:00 05/27/17 17:59 Atorvastatin Calcium (Lipitor) 80 mg BEDTIME ORAL 04/25/17 21:00 05/25/17 20:59 04/26/17 21:57 Carvedilol (Coreg) 6.25 mg EVERY 12 HOURS ORAL 04/26/17 21:00 05/26/17 20:59 04/27/17 08:49 Clonidine HCl (Catapres) 0.1 mg Q2HR PRN ORAL For High Blood Pressure 04/26/17 15:30 05/26/17 15:29 04/27/17 00:30 Dextrose (Dextrose 50%) STAT PRN IV Hypoglycemia 04/25/17 11:30 05/25/17 11:29 Diltiazem HCl (Cardizem) 10 mg Q1H PRN IV heart rate more than 120, 04/25/17 14:30 05/25/17 14:29 Gabapentin (Neurontin) 300 mg BEDTIME ORAL 04/25/17 21:00 05/25/17 20:59 04/26/17 21:56 Insulin Aspart (NovoLOG) BEFORE MEALS AND HS SUBQ 04/25/17 16:30 05/25/17 16:29 04/27/17 12:41 Morphine Sulfate (Morphine Sulfate) 2 mg Q4H PRN IVP For Pain 04/26/17 11:00 05/03/17 10:59 04/27/17 10:08 Tamsulosin HCl (Flomax) 0.4 mg BEDTIME ORAL 04/25/17 22:00 05/25/17 21:59 04/26/17 21:56 Allergies: Coded Allergies: No Known Allergies (Unverified , 04/25/17) ROS Limited/Unobtainable: No Constitutional: Reports: no symptoms HEENT: Reports: no symptoms Cardiovascular: Reports: no symptoms Respiratory: Reports: no symptoms Gastrointestinal/Abdominal: Reports: no symptoms Genitourinary: Reports: no symptoms Neurologic/Psychiatric: Reports: no symptoms Subjective 66 YO M admitted with altered mental status and hypoglycemia. Cover for [facility] -Dr Serrato. Objective Last Vital Signs Date Time Temp Pulse Resp B/P (MAP) Pulse Ox O2 Delivery O2 Flow Rate FiO2 04/27/17 11:37 98.2 61 20 136/64 99 Room Air Laboratory Tests Test 04/27/17 06:35 White Blood Count 9.4 K/UL (4.8-10.8) Red Blood Count 3.12 M/UL (4.70-6.10) L Hemoglobin 9.3 G/DL (14.2-18.0) L Hematocrit 28.7 % (42.0-52.0) L Mean Corpuscular Volume 92 FL (80-99) Mean Corpuscular Hemoglobin 29.7 PG (27.0-31.0) Mean Corpuscular Hemoglobin Concent 32.3 G/DL (32.0-36.0) Red Cell Distribution Width 16.1 % (11.6-14.8) H Platelet Count 254 K/UL (150-450) Mean Platelet Volume 7.1 FL (6.5-10.1) Neutrophils (%) (Auto) 65.4 % (45.0-75.0) Lymphocytes (%) (Auto) 25.5 % (20.0-45.0) Monocytes (%) (Auto) 7.4 % (1.0-10.0) Eosinophils (%) (Auto) 1.1 % (0.0-3.0) Basophils (%) (Auto) 0.7 % (0.0-2.0) Sodium Level 141 mEQ/L (135-145) Potassium Level 4.5 mEQ/L (3.4-4.9) Chloride Level 101 mEQ/L (98-107) Carbon Dioxide Level 29 mEQ/L (20-30) Anion Gap 11 (5-15) Blood Urea Nitrogen 29 mg/dL (7-23) H Creatinine 2.0 mg/dL (0.7-1.2) H Estimat Glomerular Filtration Rate 40.7 mL/min (>60) Glucose Level 201 mg/dL (74-106) H Hemoglobin A1c 9.9 % (< 6.0) H Calcium Level 9.0 mg/dL (8.6-10.2) Prealbumin Pending Microbiology Date/Time Source Procedure Growth Status 04/25/17 08:25 Nasal Nares MRSA Culture - Final NO METHICILLIN RESISTANT STAPH AUREUS... 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 Resolved (2) Renal failure Assessment & Plan: ?diabetic nephropathy?-see ultrasound (3) Hypercholesteremia Assessment & Plan: Cont lipitor (4) Right BKA infection (5) Hypoglycemia Assessment & Plan: Resolved. continue novolog sliding scale. (6) HTN (hypertension) Assessment & Plan: Cont cardizem (7) Diabetes mellitus Assessment & Plan: Continue novolog sliding scale. (8) Atrial fibrillation Assessment & Plan: See cardiology note. Status: progressing MARYANNE SMALLS Apr 27, 2017 13:17
--- NOTE | 2017-04-27 13:45 | Pulmonology Progress Note ---
Assessment/Plan Assessment/Plan ASSESSMENT acute metabolic encephalopathy 2 to hypoglycemia hypoglycemia -resolved A fib with RVR -converted to SR acute renal failure on CRI ( llikely due to bladder outlet obstruction) anemia DM HTN R BKA stump wound BLE pain severe protein calorie malnutrition urinary retention bladder outlet obstruction PLAN OF CARE tele CT head no acute IC pathology off heparin gtt , converted to NSR BP management cardio follows ECHO with pEF 55% and RVSP of 16 renal US with PVR 922 cc and bladder outlet obstruction monitor renal parameters, lytes creat about the same O2 prn to keep sat above 92% pulmonary toilet BS management with SS of insulin, HgbA1c -9.9 , off Metformin ( creat high) DVT prophylaxis pain management Venous and Arterial Duplex BLE wound nurse eval for R BKA stump wound care as per wound nurse recommendations anemia w/up, monitor HH, transfuse prn urology consult pending ( dr Cruz) started on Flomax s/p Kilpatrick insertion by nursing 04/26 dietary eval, check prealbumin dc tele?-per cardio discretion case discussed and evaluated by supervising physician Subjective Allergies: Coded Allergies: No Known Allergies (Unverified , 04/25/17) Subjective converted to NSR off Heparin gtt c/o BLE pain denies chest pain, SOB s/p Kilpatrick insertion 04/26 for urianry retention Objective Last 24 Hour Vital Signs Date Time Temp Pulse Resp B/P (MAP) Pulse Ox O2 Delivery O2 Flow Rate FiO2 04/27/17 11:37 98.2 61 20 136/64 99 Room Air 04/27/17 08:49 62 151/83 04/27/17 08:00 66 04/27/17 07:49 97.7 67 20 116/66 97 Room Air 04/27/17 04:36 62 04/27/17 03:52 98.4 69 20 150/73 94 Room Air 04/27/17 00:30 178/92 04/27/17 00:00 71 04/26/17 23:46 98.7 68 21 178/92 98 Room Air 04/26/17 22:15 90 04/26/17 21:58 96 140/70 04/26/17 19:50 98.6 72 20 149/77 95 Room Air 04/26/17 16:34 69 159/84 04/26/17 16:00 66 04/26/17 15:50 97.9 64 20 170/88 100 Room Air 04/26/17 15:34 171/81 Intake and Output 04/27/17 04/28/17 19:00 07:00 Intake Total 490 ml Balance 490 ml Intake Oral 490 ml Objective General Appearance: WD/WN, cachetic, other - AA male in NAD HEENT: normocephalic, atraumatic Respiratory/Chest: lungs clear - with moderate air exchange , no respiratory distress Cardiovascular: normal rate - SR on tele, regular rhythm Abdomen: soft, non tender, non distended Genitourinary: normal external genitalia Extremities: other - R BKA stump with small wound Neurologic/Psychiatric: alert, responsive Musculoskeletal: normal muscle bulk Microbiology Date/Time Source Procedure Growth Status 04/25/17 08:25 Nasal Nares MRSA Culture - Final NO METHICILLIN RESISTANT STAPH AUREUS... Complete Laboratory Tests 04/27/17 06:35: White Blood Count 9.4, Red Blood Count 3.12L, Hemoglobin 9.3L, Hematocrit 28.7L , Mean Corpuscular Volume 92, Mean Corpuscular Hemoglobin 29.7, Mean Corpuscular Hemoglobin Concent 32.3, Red Cell Distribution Width 16.1H, Platelet Count 254, Mean Platelet Volume 7.1, Neutrophils (%) (Auto) 65.4, Lymphocytes (%) (Auto) 25.5, Monocytes (%) (Auto) 7.4, Eosinophils (%) (Auto) 1.1, Basophils (%) (Auto) 0.7, Sodium Level 141, Potassium Level 4.5, Chloride Level 101, Carbon Dioxide Level 29, Anion Gap 11, Blood Urea Nitrogen 29H, Creatinine 2.0H, Estimat Glomerular Filtration Rate 40.7, Glucose Level 201H, Hemoglobin A1c 9.9H, Calcium Level 9.0, Prealbumin [Pending] Current Medications Medications (Trade) Dose Ordered Sig/Dragan Route PRN Reason Start Time Stop Time Status Last Admin Dose Admin Acetaminophen (Tylenol) 650 mg Q6H PRN ORAL Prn Headache/Temp > 101 04/25/17 23:30 05/25/17 23:29 04/26/17 11:07 Apixaban (Eliquis) 2.5 mg BID ORAL 04/27/17 18:00 05/27/17 17:59 Atorvastatin Calcium (Lipitor) 80 mg BEDTIME ORAL 04/25/17 21:00 05/25/17 20:59 04/26/17 21:57 Carvedilol (Coreg) 6.25 mg EVERY 12 HOURS ORAL 04/26/17 21:00 05/26/17 20:59 04/27/17 08:49 Clonidine HCl (Catapres) 0.1 mg Q2HR PRN ORAL For High Blood Pressure 04/26/17 15:30 05/26/17 15:29 04/27/17 00:30 Dextrose (Dextrose 50%) STAT PRN IV Hypoglycemia 04/25/17 11:30 05/25/17 11:29 Diltiazem HCl (Cardizem) 10 mg Q1H PRN IV heart rate more than 120, 04/25/17 14:30 05/25/17 14:29 Gabapentin (Neurontin) 300 mg BEDTIME ORAL 04/25/17 21:00 05/25/17 20:59 04/26/17 21:56 Insulin Aspart (NovoLOG) BEFORE MEALS AND HS SUBQ 04/25/17 16:30 05/25/17 16:29 04/27/17 12:41 Morphine Sulfate (Morphine Sulfate) 2 mg Q4H PRN IVP For Pain 04/26/17 11:00 05/03/17 10:59 04/27/17 10:08 Tamsulosin HCl (Flomax) 0.4 mg BEDTIME ORAL 04/25/17 22:00 05/25/17 21:59 04/26/17 21:56 Tr SanchezEllie hunt NP Apr 27, 2017 13:45
[2017-04-27 15:20] VITALS: BP 142/80
[2017-04-27 19:53] VITALS: BP 130/68
[2017-04-27] MEDS: Tamsulosin 0.4mg cap ORAL SCH (20:27)
[2017-04-27] MEDS: Atorvastatin 80mg tab ORAL SCH (20:28)
[2017-04-28 00:10] VITALS: BP 166/74
[2017-04-28] MEDS: Morphine Sulfate 2mg/ml Inj IVP PRN ×4 (00:42→16:00)
[2017-04-28 04:01] VITALS: BP 132/78
[2017-04-28] MEDS: NovoLOG Insulin Flexpen SUBQ SCH ×4 (06:03→21:48)
[2017-04-28 07:32] LABS: CALCIUM 8.7 mg/dL (8.6-10.2); CREATININE 1.9 mg/dL (0.7-1.2); EOSINOPHILS % (AUTO) 1.2 % (0.0-3.0); GLOMERULAR FILTRATION RATE 43.1 mL/min (>60); LYMPHOCYTES % (AUTO) 24.4 % (20.0-45.0); MEAN CORPUSCULAR HEMOGLOBIN 31.5 PG (27.0-31.0); MEAN CORPUSCULAR HGB CONC 33.4 G/DL (32.0-36.0); MEAN CORPUSCULAR VOLUME 94 FL (80-99); MEAN PLATELET VOLUME 7.1 FL (6.5-10.1); MONOCYTES % (AUTO) 13.6 % (1.0-10.0); NEUTROPHILS % (AUTO) 59.8 % (45.0-75.0); PLATELET COUNT 220 K/UL (150-450); POTASSIUM 4.5 mEQ/L (3.4-4.9); RED BLOOD COUNT 2.87 M/UL (4.70-6.10); RED CELL DISTRIBUTION WIDTH 15.9 % (11.6-14.8); WHITE BLOOD COUNT 10.7 K/UL (4.8-10.8)
[2017-04-28 08:00] VITALS: BP 141/81
[2017-04-28] MEDS: Eliquis 2.5mg tablet ORAL SCH ×2 (09:33→17:55)
[2017-04-28] MEDS: Carvedilol 6.25mg Tab ORAL SCH ×2 (09:34→21:15)
--- NOTE | 2017-04-28 10:07 | Internal Med Progress Note ---
Subjective Date of Service: Apr 28, 2017 Physician Name Felton Smalls Attending Physician Bruno Serrato MD Current Medications Medications (Trade) Dose Ordered Sig/Dragan Route PRN Reason Start Time Stop Time Status Last Admin Dose Admin Acetaminophen (Tylenol) 650 mg Q6H PRN ORAL Prn Headache/Temp > 101 04/25/17 23:30 05/25/17 23:29 04/26/17 11:07 Apixaban (Eliquis) 2.5 mg BID ORAL 04/27/17 18:00 05/27/17 17:59 04/28/17 09:33 Atorvastatin Calcium (Lipitor) 80 mg BEDTIME ORAL 04/25/17 21:00 05/25/17 20:59 04/27/17 20:28 Carvedilol (Coreg) 6.25 mg EVERY 12 HOURS ORAL 04/26/17 21:00 05/26/17 20:59 04/28/17 09:34 Clonidine HCl (Catapres) 0.1 mg Q2HR PRN ORAL For High Blood Pressure 04/26/17 15:30 05/26/17 15:29 04/27/17 00:30 Dextrose (Dextrose 50%) STAT PRN IV Hypoglycemia 04/25/17 11:30 05/25/17 11:29 Diltiazem HCl (Cardizem) 10 mg Q1H PRN IV heart rate more than 120, 04/25/17 14:30 05/25/17 14:29 Gabapentin (Neurontin) 300 mg BEDTIME ORAL 04/25/17 21:00 05/25/17 20:59 04/27/17 20:28 Insulin Aspart (NovoLOG) BEFORE MEALS AND HS SUBQ 04/25/17 16:30 05/25/17 16:29 04/28/17 06:03 Morphine Sulfate (Morphine Sulfate) 2 mg Q4H PRN IVP For Pain 04/26/17 11:00 05/03/17 10:59 04/28/17 06:10 Tamsulosin HCl (Flomax) 0.4 mg BEDTIME ORAL 04/25/17 22:00 05/25/17 21:59 04/27/17 20:27 Allergies: Coded Allergies: No Known Allergies (Unverified , 04/25/17) Subjective 66 YO M admitted with altered mental status and hypoglycemia. Cover for Int Med -Dr Serrato. Objective Last Vital Signs Date Time Temp Pulse Resp B/P (MAP) Pulse Ox O2 Delivery O2 Flow Rate FiO2 04/28/17 09:34 63 141/81 04/28/17 08:00 97.7 19 100 Room Air Laboratory Tests Test 04/28/17 04:55 White Blood Count 10.7 K/UL (4.8-10.8) Red Blood Count 2.87 M/UL (4.70-6.10) L Hemoglobin 9.0 G/DL (14.2-18.0) L Hematocrit 27.1 % (42.0-52.0) L Mean Corpuscular Volume 94 FL (80-99) Mean Corpuscular Hemoglobin 31.5 PG (27.0-31.0) H Mean Corpuscular Hemoglobin Concent 33.4 G/DL (32.0-36.0) Red Cell Distribution Width 15.9 % (11.6-14.8) H Platelet Count 220 K/UL (150-450) Mean Platelet Volume 7.1 FL (6.5-10.1) Neutrophils (%) (Auto) 59.8 % (45.0-75.0) Lymphocytes (%) (Auto) 24.4 % (20.0-45.0) Monocytes (%) (Auto) 13.6 % (1.0-10.0) H Eosinophils (%) (Auto) 1.2 % (0.0-3.0) Basophils (%) (Auto) 1.0 % (0.0-2.0) Sodium Level 137 mEQ/L (135-145) Potassium Level 4.5 mEQ/L (3.4-4.9) Chloride Level 100 mEQ/L (98-107) Carbon Dioxide Level 28 mEQ/L (20-30) Anion Gap 9 (5-15) Blood Urea Nitrogen 29 mg/dL (7-23) H Creatinine 1.9 mg/dL (0.7-1.2) H Estimat Glomerular Filtration Rate 43.1 mL/min (>60) Glucose Level 180 mg/dL (74-106) H Calcium Level 8.7 mg/dL (8.6-10.2) Objective General Appearance: alert, thin EENT: PERRL/EOMI, normal ENT inspection Neck: non-tender, normal alignment, supple, normal inspection Cardiovascular: normal peripheral pulses, normal rate, regular rhythm, no gallop/murmur, no JVD Respiratory/Chest: chest wall non-tender, lungs clear, normal breath sounds, no respiratory distress, no accessory muscle use Abdomen: normal bowel sounds, non tender, soft, no organomegaly, no mass Extremities: normal range of motion 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 Resolved (2) Renal failure Assessment & Plan: ?diabetic nephropathy?-see ultrasound (3) Hypercholesteremia Assessment & Plan: Cont lipitor (4) Right BKA infection (5) Hypoglycemia Assessment & Plan: Resolved. continue novolog sliding scale. (6) HTN (hypertension) Assessment & Plan: Cont cardizem (7) Diabetes mellitus Assessment & Plan: Continue novolog sliding scale. (8) Atrial fibrillation Assessment & Plan: See cardiology note. Continue coreg and eliquis Status: progressing Assessment/Plan Discharge planning: A & P Home health FELTON SMALLS Apr 28, 2017 10:07
--- NOTE | 2017-04-28 11:17 | Diagnostic Imaging Report ---
APPROVED REPORT CPT Code: 70662 Symptoms Rest Pain : Bilaterally Comments Amputation: immediately below RIGHT knee. Shortness of Breath. BILATERAL LEG: Common femoral artery waveform analysis is within normal limits at rest. Color flow duplex sonography reveals diffuse plaque throughout the superficial femoral and popliteal arteries. There is no evidence of occlusion within these segments. The tibioperoneal trunk was not well visualized. However, Doppler tibial artery waveform analysis is compatible with minimal ischemia at rest.
--- NOTE | 2017-04-28 11:17 | Diagnostic Imaging Report ---
APPROVED REPORT CPT Code: 61411 Present Symptoms Lower Extremity Pain: Bilateral Shortness of breath BILATERAL: Imaging reveals a patent deep venous system bilaterally. There is no evidence of thrombus within the femoral, popliteal or tibial segments. The greater saphenous veins are also within normal limits. Doppler indicates normal spontaneous flow within these segments.
[2017-04-28 11:49] VITALS: BP 157/71
--- NOTE | 2017-04-28 12:41 | Pulmonology Progress Note ---
Assessment/Plan Problems: (1) Hypoglycemia (2) Atrial fibrillation (3) Altered level of consciousness (4) HTN (hypertension) (5) BPH (benign prostatic hyperplasia) (6) Right BKA infection Assessment/Plan still has johnson Heart rate controlled with coreg ON Epixiban med/surg dc planning with or without Johnson Subjective ROS Limited/Unobtainable: No Constitutional: Reports: no symptoms HEENT: Repors: no symptoms Respiratory: Reports: no symptoms Allergies: Coded Allergies: No Known Allergies (Unverified , 04/25/17) Objective Last 24 Hour Vital Signs Date Time Temp Pulse Resp B/P (MAP) Pulse Ox O2 Delivery O2 Flow Rate FiO2 04/28/17 11:49 98.2 65 21 157/71 100 Room Air 04/28/17 09:34 63 141/81 04/28/17 08:00 97.7 63 19 141/81 100 Room Air 04/28/17 04:01 98.1 59 20 132/78 97 Room Air 04/28/17 04:00 68 04/28/17 00:10 97.2 55 19 166/74 94 Room Air 04/28/17 00:00 64 04/27/17 20:28 71 130/68 04/27/17 20:00 63 04/27/17 19:53 97.9 71 20 130/68 99 Room Air 04/27/17 16:00 63 04/27/17 15:20 96.8 64 20 142/80 100 Room Air General Appearance: WD/WN Respiratory/Chest: chest wall non-tender, lungs clear Cardiovascular: normal peripheral pulses, normal rate Abdomen: normal bowel sounds, soft, non tender Genitourinary: normal external genitalia Extremities: no clubbing Skin: no rash Laboratory Tests 04/28/17 04:55: White Blood Count 10.7, Red Blood Count 2.87L, Hemoglobin 9.0L, Hematocrit 27.1L , Mean Corpuscular Volume 94, Mean Corpuscular Hemoglobin 31.5H, Mean Corpuscular Hemoglobin Concent 33.4, Red Cell Distribution Width 15.9H, Platelet Count 220, Mean Platelet Volume 7.1, Neutrophils (%) (Auto) 59.8, Lymphocytes (%) (Auto) 24.4, Monocytes (%) (Auto) 13.6H, Eosinophils (%) (Auto) 1.2, Basophils (%) (Auto) 1.0, Sodium Level 137, Potassium Level 4.5, Chloride Level 100, Carbon Dioxide Level 28, Anion Gap 9, Blood Urea Nitrogen 29H, Creatinine 1.9H, Estimat Glomerular Filtration Rate 43.1, Glucose Level 180H, Calcium Level 8.7 Current Medications Medications (Trade) Dose Ordered Sig/Dragan Route PRN Reason Start Time Stop Time Status Last Admin Dose Admin Acetaminophen (Tylenol) 650 mg Q6H PRN ORAL Prn Headache/Temp > 101 04/25/17 23:30 05/25/17 23:29 04/26/17 11:07 Apixaban (Eliquis) 2.5 mg BID ORAL 04/27/17 18:00 05/27/17 17:59 04/28/17 09:33 Atorvastatin Calcium (Lipitor) 80 mg BEDTIME ORAL 04/25/17 21:00 05/25/17 20:59 04/27/17 20:28 Carvedilol (Coreg) 6.25 mg EVERY 12 HOURS ORAL 04/26/17 21:00 05/26/17 20:59 04/28/17 09:34 Clonidine HCl (Catapres) 0.1 mg Q2HR PRN ORAL For High Blood Pressure 04/26/17 15:30 05/26/17 15:29 04/27/17 00:30 Dextrose (Dextrose 50%) STAT PRN IV Hypoglycemia 04/25/17 11:30 05/25/17 11:29 Diltiazem HCl (Cardizem) 10 mg Q1H PRN IV heart rate more than 120, 04/25/17 14:30 05/25/17 14:29 Gabapentin (Neurontin) 300 mg BEDTIME ORAL 04/25/17 21:00 05/25/17 20:59 04/27/17 20:28 Insulin Aspart (NovoLOG) BEFORE MEALS AND HS SUBQ 04/25/17 16:30 05/25/17 16:29 04/28/17 12:23 Morphine Sulfate (Morphine Sulfate) 2 mg Q4H PRN IVP For Pain 04/26/17 11:00 05/03/17 10:59 04/28/17 11:11 Tamsulosin HCl (Flomax) 0.4 mg BEDTIME ORAL 04/25/17 22:00 05/25/17 21:59 04/27/17 20:27 BRIAN HERNANDEZ Apr 28, 2017 12:41
--- NOTE | 2017-04-28 14:51 | Consultation ---
Consult Note Consult Note asked to eval for high Cr Assessment/Plan admitted for acute metabolic encephalopathy 2 to hypoglycemia hypoglycemia -resolved A fib with RVR -converted to SR acute renal failure on CRI ( llikely due to bladder outlet obstruction) - per AILYN Also due to DM and HTN, has 3+ Proteinuria anemia DM HTN R BKA stump wound BLE pain severe protein calorie malnutrition Urinary retention due to bladder out let Obstruction bladder outlet obstruction Plan: Optimize BS and BP status Avoid nephrotoxics Flomax one dose IV Iron Stable from renal stand since admission TYE TINAJERO Apr 28, 2017 14:51
[2017-04-28] MEDS ORDERED: Tamsulosin 0.4mg cap ORAL ONE (15:00)
[2017-04-28 16:00] VITALS: BP 153/78
[2017-04-28] MEDS ORDERED: Iron Sucrose 200 MG in NS 50 ML IV ONE (16:00)
[2017-04-28] MEDS ORDERED: Morphine Sulfate 2mg/ml Inj IVP PRN (17:30)
[2017-04-28] MEDS ORDERED: Diltiazem 25mg/5ml IV PRN (17:30)
--- NOTE | 2017-04-28 17:50 | Cardiac Electrophysiology PN ---
Assessment/Plan Assessment/Plan 1. Newly diagnosed Atrial fibrillation. Converted to SR. On Carvedilol 6.25 mg b.i.d. and Eliquis 2.5 bid 2. HTN Coreg 6.25 bid 3. Hyperlipidemia. 4. Diabetes, on insulin. 5. CKD Cr 2.5 Subjective Subjective Comfortable transferred to NMB. No chest pain or SOB.. Objective Last 24 Hour Vital Signs Date Time Temp Pulse Resp B/P (MAP) Pulse Ox O2 Delivery O2 Flow Rate FiO2 04/28/17 16:00 98.2 67 21 153/78 99 Room Air 04/28/17 12:00 66 04/28/17 11:49 98.2 65 21 157/71 100 Room Air 04/28/17 09:34 63 141/81 04/28/17 08:00 97.7 63 19 141/81 100 Room Air 04/28/17 08:00 64 04/28/17 04:01 98.1 59 20 132/78 97 Room Air 04/28/17 04:00 68 04/28/17 00:10 97.2 55 19 166/74 94 Room Air 04/28/17 00:00 64 04/27/17 20:28 71 130/68 04/27/17 20:00 63 04/27/17 19:53 97.9 71 20 130/68 99 Room Air Intake and Output 04/28/17 04/29/17 19:00 07:00 Output Total 1100 ml Balance -1100 ml Output Urine Total 1100 ml Laboratory Tests Test 04/28/17 04:55 White Blood Count 10.7 K/UL (4.8-10.8) Red Blood Count 2.87 M/UL (4.70-6.10) L Hemoglobin 9.0 G/DL (14.2-18.0) L Hematocrit 27.1 % (42.0-52.0) L Mean Corpuscular Volume 94 FL (80-99) Mean Corpuscular Hemoglobin 31.5 PG (27.0-31.0) H Mean Corpuscular Hemoglobin Concent 33.4 G/DL (32.0-36.0) Red Cell Distribution Width 15.9 % (11.6-14.8) H Platelet Count 220 K/UL (150-450) Mean Platelet Volume 7.1 FL (6.5-10.1) Neutrophils (%) (Auto) 59.8 % (45.0-75.0) Lymphocytes (%) (Auto) 24.4 % (20.0-45.0) Monocytes (%) (Auto) 13.6 % (1.0-10.0) H Eosinophils (%) (Auto) 1.2 % (0.0-3.0) Basophils (%) (Auto) 1.0 % (0.0-2.0) Sodium Level 137 mEQ/L (135-145) Potassium Level 4.5 mEQ/L (3.4-4.9) Chloride Level 100 mEQ/L (98-107) Carbon Dioxide Level 28 mEQ/L (20-30) Anion Gap 9 (5-15) Blood Urea Nitrogen 29 mg/dL (7-23) H Creatinine 1.9 mg/dL (0.7-1.2) H Estimat Glomerular Filtration Rate 43.1 mL/min (>60) Glucose Level 180 mg/dL (74-106) H Calcium Level 8.7 mg/dL (8.6-10.2) Objective HEAD AND NECK: Shows no JVD. LUNGS: Clear CARDIOVASCULAR: Regular S1 and S2 with no gallop or murmur. ABDOMEN: Soft. EXTREMITIES: 1+ pitting edema. MADI MAYBERRY Apr 28, 2017 17:50
[2017-04-28] MEDS: Tamsulosin 0.4mg cap ORAL SCH (17:54)
[2017-04-28] MEDS ORDERED: Tamsulosin 0.4mg cap ORAL SCH (18:00)
--- NOTE | 2017-04-28 19:48 | Cardiology Report ---
APPROVED REPORT EKG Measurement Heart [id number] Normal sinus rhythm Septal infarct, age undetermined Abnormal ECG
[2017-04-28 20:15] VITALS: BP 192/91
--- NOTE | 2017-04-28 20:24 | Wound Care Consultation ---
Wound Assessment Wound Assessment : Wound Number: 1 Wound Present on Admission: Yes New Wound: No Status Change of Wound: No Wound Location Body Site Modif: right, mid, anterior Wound Location Body Site: other - stump Wound Type: lesion-etiology unknown Harriett Test: Does not Harriett Wound Thickness: Full Thickness Wound Length: 0.5 Wound Width: 0.5 Wound Depth: utd Percent of Wound Bed Yellow/Wh: 100 Wound Drainage Description: Serosanguineous Wound Drainage Amount: Moderate Wound Drainage Odor: None/Absent Tissue Surrounding Wound: Intact Wound General Appearance: Draining, Bone Palpable Wound Comment #1 Right anterior mid stump site open wound. Recommendation -Right anterior mid stump site open wound. Cleanse with saline, pat dry, apply calcium alginate, cover with bordered gauze daily and PRN soiled/dislodged -Optimize nutrition -Assess and f/u accordingly for any changes GIL BRAMBILA RN Apr 28, 2017 20:24
[2017-04-28] MEDS ORDERED: Atorvastatin 80mg tab ORAL SCH (21:00)
[2017-04-28] MEDS: Morphine Sulfate 4mg/ml Inj IVP PRN (23:53)
[2017-04-29] VITALS (8 sets, daily range): BP systolic 143–163; BP diastolic 58–79
--- NOTE | 2017-04-29 03:45 | Consultation ---
DATE OF CONSULTATION: 04/28/2017 RENAL CONSULTATION HISTORY OF PRESENT ILLNESS: The patient is a 66-year-old gentleman with past medical history of hypertension and diabetes. The patient has been admitted to the hospital because of altered level of consciousness and hypoglycemia. Apparently, the patient had his snack on the evening of the admission around 10 p.m., he went to the restroom and then felt dizzy and lightheaded. He was brought to [facility] emergency room where he was found to have a blood sugar around 30s and he was given D50 and has been admitted for further workup. Although he received D50, his mental status did not improve. The patient has been found to have a renal failure. Unfortunately, we do not have any information what the patient's baseline creatinine level. He is not a good historian. No urine output has been calculated. The patient has been on several medications including metformin, but I do not see that he has been taking NSAIDs, JAYESH inhibitor, ARB, or any nephrotoxic agents. No urine output has been calculated. PAST MEDICAL HISTORY: Hypertension, diabetes, high cholesterol, and atrial fibrillation. MEDICATIONS: Proscar, Flomax, carvedilol, atorvastatin, Norvasc, Neurontin, metformin, and insulin. ALLERGIES: No known drug allergies. SOCIAL HISTORY: Nondrinker, but he has a history of smoking. REVIEW OF SYSTEMS: Positive for altered level of consciousness, dizziness, and confusion. PHYSICAL EXAMINATION: GENERAL: The patient is in no acute distress. VITAL SIGNS: Blood pressure is 132/78, respiratory rate 20, heart rate 69, oxygen saturation 97% on room air, and temperature 98.1 degrees. HEENT: Conjunctivae pale. Oral mucosa is moist. SKIN: Skin turgor is normal. PULMONARY: Decreased breath sounds over the bases. HEART: Bradycardic. ABDOMEN: Benign. EXTREMITIES: Shows trace edema of the lower extremity. LABORATORY DATA: Sodium is 137, potassium 4.5, bicarbonate 20, chloride 100, BUN 29, creatinine 1.9, and calcium 8.7. The patient's BUN and creatinine yesterday were 29 and 2. ASSESSMENT AND PLAN: The patient is a 66-year-old gentleman with a past medical history of hypertension and diabetes. The patient has been admitted to the hospital with altered level of consciousness and hypoglycemia, and has been found to have renal failure. 1. Unfortunately, we do not have any information about the patient's baseline creatinine, so it is unclear to me whether that he has acute renal failure or acute on chronic renal failure. 2. The patient most likely has some component of chronic kidney disease in the setting of hypertensive/diabetic nephropathy with acute on chronic renal failure because of prerenal mechanism versus acute tubular necrosis. 3. We will continue daily BMP. 4. We will avoid using NSAIDs, JAYESH inhibitor, and ARB. 5. I will check the renal ultrasound. Laurie Mcdonough M.D. DR: VIVIANE JOB#: [id number] CC:
[2017-04-29] MEDS: Morphine Sulfate 4mg/ml Inj IVP PRN ×3 (04:02→14:38)
[2017-04-29] MEDS: NovoLOG Insulin Flexpen SUBQ SCH ×3 (06:28→17:22)
[2017-04-29 06:39] LABS: BASOPHILS % (AUTO) 0.8 % (0.0-2.0); EOSINOPHILS % (AUTO) 1.9 % (0.0-3.0); LYMPHOCYTES % (AUTO) 20.4 % (20.0-45.0); MEAN CORPUSCULAR HEMOGLOBIN 30.2 PG (27.0-31.0); MEAN CORPUSCULAR HGB CONC 32.7 G/DL (32.0-36.0); MEAN CORPUSCULAR VOLUME 92 FL (80-99); MEAN PLATELET VOLUME 6.1 FL (6.5-10.1); MONOCYTES % (AUTO) 15.4 % (1.0-10.0); NEUTROPHILS % (AUTO) 61.6 % (45.0-75.0); PLATELET COUNT 195 K/UL (150-450); RED BLOOD COUNT 2.83 M/UL (4.70-6.10); RED CELL DISTRIBUTION WIDTH 16.6 % (11.6-14.8); WHITE BLOOD COUNT 10.4 K/UL (4.8-10.8)
[2017-04-29 07:07] LABS: ALBUMIN/GLOBULIN RATIO 1.1 (1.0-2.7); CREATININE 1.9 mg/dL (0.7-1.2); CRP QUANT 0.3 mg/dL (< 0.5); GLOMERULAR FILTRATION RATE 43.1 mL/min (>60); PHOSPHORUS 3.7 mg/dL (2.5-4.8); POTASSIUM 5.3 mEQ/L (3.4-4.9); TOTAL PROTEIN 6.5 g/dL (6.6-8.7)
[2017-04-29] MEDS: Tamsulosin 0.4mg cap ORAL SCH ×2 (08:41→17:26)
[2017-04-29] MEDS: Eliquis 2.5mg tablet ORAL SCH ×2 (08:42→17:26)
[2017-04-29] MEDS: Carvedilol 6.25mg Tab ORAL SCH (08:42)
--- NOTE | 2017-04-29 12:40 | Cardiology Report ---
APPROVED REPORT EXAM: Two-dimensional and M-mode echocardiogram with Doppler and color Doppler. INDICATION Congestive Heart Failure M-Mode DIMENSIONS IVSd1.4 (0.7-1.1cm)Left Atrium (MM)2.9 (1.6-4.0cm) LVDd4.7 (3.5-5.6cm)Aortic Root3.0 (2.0-3.7cm) PWd1.1 (0.7-1.1cm)Aortic Cusp Exc.1.6 (1.5-2.0cm) LVDs3.3 (2.5-4.0cm) PWs1.8 cm Mild left ventricular enlargement by 2D. Normal left ventricular systolic function and wall motion. Left ventricular ejection fraction estimated to be 55 %. Mild left ventricular hypertrophy. No evidence of pericardial fat or effusion. All other cardiac chamber sizes are within normal limits. Moderate focal aortic valve sclerosis with adequate cusp excursion. Mildly thickened mitral valve leaflets with normal excursion. Mild mitral annulus and aortic root calcification. Normal pulmonic valve structure. Normal tricuspid valve structure. IVC dilated at 2.1 cm with physiologic collapse. A color flow and spectral Doppler study was performed and revealed: No aortic regurgitation. Trace mitral regurgitation. Mitral diastolic velocities suggest reduced left ventricular relaxation (Grade I). Trace tricuspid regurgitation. Tricuspid systolic velocities suggests peak right ventricular systolic pressure of 16 mmHg. Trace pulmonic regurgitation present.
--- NOTE | 2017-04-29 14:19 | General Progress Note ---
Assessment/Plan Status: unchanged Status Narrative cr stable- 1.9 High K is likely hemolysis Assessment/Plan admitted for acute metabolic encephalopathy 2 to hypoglycemia hypoglycemia -resolved A fib with RVR -converted to SR acute renal failure on CRI ( llikely due to bladder outlet obstruction) - per AILYN Also due to DM and HTN, has 3+ Proteinuria anemia DM HTN R BKA stump wound BLE pain severe protein calorie malnutrition Urinary retention due to bladder out let Obstruction bladder outlet obstruction Plan: Optimize BS and BP status Avoid nephrotoxics Flomax one dose IV Iron given Stable from renal stand since admission Subjective ROS Limited/Unobtainable: No Constitutional: Reports: malaise Allergies: Coded Allergies: No Known Allergies (Unverified , 04/25/17) Objective Last 24 Hour Vital Signs Date Time Temp Pulse Resp B/P (MAP) Pulse Ox O2 Delivery O2 Flow Rate FiO2 04/29/17 13:12 68 153/61 04/29/17 12:57 97.2 70 20 161/79 100 Room Air 04/29/17 10:42 66 154/74 04/29/17 08:42 68 178/75 04/29/17 08:37 98.2 67 20 163/78 100 Room Air 04/29/17 04:32 98.5 04/29/17 04:00 99.0 66 18 143/66 98 Room Air 04/29/17 00:00 98.5 65 18 154/58 99 Room Air 04/28/17 21:15 192/88 04/28/17 21:15 67 192/88 04/28/17 20:34 98.2 04/28/17 20:15 98.4 71 18 192/91 100 Room Air 04/28/17 16:00 98.2 67 21 153/78 99 Room Air Laboratory Tests 04/29/17 05:25: White Blood Count 10.4, Red Blood Count 2.83L, Hemoglobin 8.5L, Hematocrit 26.1L , Mean Corpuscular Volume 92, Mean Corpuscular Hemoglobin 30.2, Mean Corpuscular Hemoglobin Concent 32.7, Red Cell Distribution Width 16.6H, Platelet Count 195, Mean Platelet Volume 6.1L, Neutrophils (%) (Auto) 61.6, Lymphocytes (%) (Auto) 20.4, Monocytes (%) (Auto) 15.4H, Eosinophils (%) (Auto) 1.9, Basophils (%) (Auto) 0.8, Sodium Level 140, Potassium Level 5.3H, Chloride Level 103, Carbon Dioxide Level 28, Anion Gap 9, Blood Urea Nitrogen 28H, Creatinine 1.9H, Estimat Glomerular Filtration Rate 43.1, Glucose Level 155H, Calcium Level 9.0, Phosphorus Level 3.7, Magnesium Level 2.0, Total Bilirubin 0.2, Aspartate Amino Transf (AST/SGOT) 10, Alanine Aminotransferase (ALT/SGPT) 6 , Alkaline Phosphatase 93, Total Creatine Kinase 73, C-Reactive Protein, Quantitative 0.3, Pro-B-Type Natriuretic Peptide 1109H, Total Protein 6.5L, Albumin 3.5, Globulin 3.0, Albumin/Globulin Ratio 1.1 Height (Feet): 6 Height (Inches): 2.00 Weight (Pounds): 131 General Appearance: no apparent distress Objective no change TYE TINAJERO Apr 29, 2017 14:19
[2017-04-29 14:26] LABS: HEMATOCRIT 33.9 % (37.5-51.0)
[2017-04-29] MEDS ORDERED: Tubing IV Secondary IV ONE (14:28)
[2017-04-29] MEDS ORDERED: COREG6.25 MG ORAL (16:34)
--- NOTE | 2017-04-29 16:43 | Internal Med Progress Note ---
Subjective Date of Service: Apr 29, 2017 Physician Name LacieMaryanne Attending Physician Bruno Serrato MD Current Medications Medications (Trade) Dose Ordered Sig/Dragan Route PRN Reason Start Time Stop Time Status Last Admin Dose Admin Acetaminophen (Tylenol) 650 mg Q6H PRN ORAL Prn Headache/Temp > 101 04/28/17 17:30 05/25/17 23:29 Apixaban (Eliquis) 2.5 mg BID ORAL 04/28/17 18:00 05/27/17 17:59 04/29/17 08:42 Atorvastatin Calcium (Lipitor) 80 mg BEDTIME ORAL 04/28/17 21:00 05/25/17 20:59 04/28/17 21:15 Carvedilol (Coreg) 6.25 mg EVERY 12 HOURS ORAL 04/28/17 21:00 05/26/17 20:59 04/29/17 08:42 Clonidine HCl (Catapres) 0.1 mg Q2H PRN ORAL For High Blood Pressure 04/28/17 18:00 05/28/17 17:59 04/28/17 21:15 Dextrose (Dextrose 50%) STAT PRN IV Hypoglycemia 04/28/17 17:30 05/28/17 17:29 Gabapentin (Neurontin) 300 mg BEDTIME ORAL 04/28/17 21:00 05/25/17 20:59 04/28/17 21:15 Insulin Aspart (NovoLOG) BEFORE MEALS AND HS SUBQ 04/28/17 21:00 05/25/17 16:29 04/29/17 12:22 Morphine Sulfate (Morphine Sulfate) 4 mg Q4H PRN IVP For Pain 04/28/17 23:14 05/05/17 23:13 04/29/17 14:38 Tamsulosin HCl (Flomax) 0.4 mg BID ORAL 04/28/17 18:00 05/25/17 21:59 04/29/17 08:41 Allergies: Coded Allergies: No Known Allergies (Unverified , 04/25/17) ROS Limited/Unobtainable: No Constitutional: Reports: no symptoms HEENT: Reports: no symptoms Cardiovascular: Reports: no symptoms Respiratory: Reports: no symptoms Gastrointestinal/Abdominal: Reports: no symptoms Genitourinary: Reports: no symptoms Neurologic/Psychiatric: Reports: no symptoms Subjective 66 YO M admitted with altered mental status and hypoglycemia. Cover for Int Med -Dr Serrato. Await discharge home Objective Last Vital Signs Date Time Temp Pulse Resp B/P (MAP) Pulse Ox O2 Delivery O2 Flow Rate FiO2 04/29/17 13:12 68 153/61 04/29/17 12:57 97.2 20 100 Room Air Laboratory Tests Test 04/29/17 05:25 White Blood Count 10.4 K/UL (4.8-10.8) Red Blood Count 2.83 M/UL (4.70-6.10) L Hemoglobin 8.5 G/DL (14.2-18.0) L Hematocrit 26.1 % (42.0-52.0) L Mean Corpuscular Volume 92 FL (80-99) Mean Corpuscular Hemoglobin 30.2 PG (27.0-31.0) Mean Corpuscular Hemoglobin Concent 32.7 G/DL (32.0-36.0) Red Cell Distribution Width 16.6 % (11.6-14.8) H Platelet Count 195 K/UL (150-450) Mean Platelet Volume 6.1 FL (6.5-10.1) L Neutrophils (%) (Auto) 61.6 % (45.0-75.0) Lymphocytes (%) (Auto) 20.4 % (20.0-45.0) Monocytes (%) (Auto) 15.4 % (1.0-10.0) H Eosinophils (%) (Auto) 1.9 % (0.0-3.0) Basophils (%) (Auto) 0.8 % (0.0-2.0) Sodium Level 140 mEQ/L (135-145) Potassium Level 5.3 mEQ/L (3.4-4.9) H Chloride Level 103 mEQ/L (98-107) Carbon Dioxide Level 28 mEQ/L (20-30) Anion Gap 9 (5-15) Blood Urea Nitrogen 28 mg/dL (7-23) H Creatinine 1.9 mg/dL (0.7-1.2) H Estimat Glomerular Filtration Rate 43.1 mL/min (>60) Glucose Level 155 mg/dL (74-106) H Calcium Level 9.0 mg/dL (8.6-10.2) Phosphorus Level 3.7 mg/dL (2.5-4.8) Magnesium Level 2.0 mg/dL (1.7-2.5) Total Bilirubin 0.2 mg/dL (0.0-1.2) Aspartate Amino Transf (AST/SGOT) 10 U/L (5-40) Alanine Aminotransferase (ALT/SGPT) 6 U/L (3-41) Alkaline Phosphatase 93 U/L (40-129) Total Creatine Kinase 73 U/L (38-174) C-Reactive Protein, Quantitative 0.3 mg/dL (< 0.5) Pro-B-Type Natriuretic Peptide 1109 pg/mL (0-125) H Total Protein 6.5 g/dL (6.6-8.7) L Albumin 3.5 g/dL (3.5-5.2) Globulin 3.0 g/dL Albumin/Globulin Ratio 1.1 (1.0-2.7) Objective General Appearance: alert, thin EENT: PERRL/EOMI, normal ENT inspection Neck: non-tender, normal alignment, supple, normal inspection Cardiovascular: normal peripheral pulses, normal rate, regular rhythm, no gallop/murmur, no JVD Respiratory/Chest: chest wall non-tender, lungs clear, normal breath sounds, no respiratory distress, no accessory muscle use Abdomen: normal bowel sounds, non tender, soft, no organomegaly, no mass Extremities: normal range of motion Neurologic: manager residential II-XII grossly normal, no motor/sensory deficits Skin: normal pigmentation, warm/dry Assessment/Plan Problem List: (1) Altered mental status Assessment & Plan: Due to hypoglycemia. Resolved (2) Renal failure Assessment & Plan: ?diabetic nephropathy?-see ultrasound (3) Hypercholesteremia Assessment & Plan: Cont lipitor (4) Right BKA infection (5) Hypoglycemia Assessment & Plan: Resolved. continue novolog sliding scale. (6) HTN (hypertension) Assessment & Plan: Cont cardizem (7) Diabetes mellitus Assessment & Plan: Continue novolog sliding scale. (8) Atrial fibrillation Assessment & Plan: See cardiology note. Continue coreg and eliquis Status: stable Assessment/Plan Discharge home today. Follow up Dr Serrato 1 week MARYANNE SMALLS Apr 29, 2017 16:43
--- NOTE | 2017-04-29 17:30 | Cardiac Electrophysiology PN ---
Assessment/Plan Assessment/Plan 1. Newly diagnosed Atrial fibrillation. Converted to SR. On Carvedilol 6.25 mg b.i.d. and Eliquis 2.5 bid 2. HTN Coreg 6.25 bid 3. Hyperlipidemia. 4. Diabetes, on insulin. 5. CKD Cr 2.5 6. S/P Right BKA DC home today Subjective Subjective Comfortable in NAD. No chest pain or SOB.DC planning today. Objective Last 24 Hour Vital Signs Date Time Temp Pulse Resp B/P (MAP) Pulse Ox O2 Delivery O2 Flow Rate FiO2 04/29/17 16:48 97.0 65 20 159/75 99 Room Air 04/29/17 13:12 68 153/61 04/29/17 12:57 97.2 70 20 161/79 100 Room Air 04/29/17 12:30 97.2 70 20 161/79 100 Room Air 04/29/17 10:42 66 154/74 04/29/17 08:42 68 178/75 04/29/17 08:37 98.2 67 20 163/78 100 Room Air 04/29/17 04:32 98.5 04/29/17 04:00 99.0 66 18 143/66 98 Room Air 04/29/17 00:00 98.5 65 18 154/58 99 Room Air 04/28/17 21:15 192/88 04/28/17 21:15 67 192/88 04/28/17 20:34 98.2 04/28/17 20:15 98.4 71 18 192/91 100 Room Air Laboratory Tests Test 04/29/17 05:25 White Blood Count 10.4 K/UL (4.8-10.8) Red Blood Count 2.83 M/UL (4.70-6.10) L Hemoglobin 8.5 G/DL (14.2-18.0) L Hematocrit 26.1 % (42.0-52.0) L Mean Corpuscular Volume 92 FL (80-99) Mean Corpuscular Hemoglobin 30.2 PG (27.0-31.0) Mean Corpuscular Hemoglobin Concent 32.7 G/DL (32.0-36.0) Red Cell Distribution Width 16.6 % (11.6-14.8) H Platelet Count 195 K/UL (150-450) Mean Platelet Volume 6.1 FL (6.5-10.1) L Neutrophils (%) (Auto) 61.6 % (45.0-75.0) Lymphocytes (%) (Auto) 20.4 % (20.0-45.0) Monocytes (%) (Auto) 15.4 % (1.0-10.0) H Eosinophils (%) (Auto) 1.9 % (0.0-3.0) Basophils (%) (Auto) 0.8 % (0.0-2.0) Sodium Level 140 mEQ/L (135-145) Potassium Level 5.3 mEQ/L (3.4-4.9) H Chloride Level 103 mEQ/L (98-107) Carbon Dioxide Level 28 mEQ/L (20-30) Anion Gap 9 (5-15) Blood Urea Nitrogen 28 mg/dL (7-23) H Creatinine 1.9 mg/dL (0.7-1.2) H Estimat Glomerular Filtration Rate 43.1 mL/min (>60) Glucose Level 155 mg/dL (74-106) H Calcium Level 9.0 mg/dL (8.6-10.2) Phosphorus Level 3.7 mg/dL (2.5-4.8) Magnesium Level 2.0 mg/dL (1.7-2.5) Total Bilirubin 0.2 mg/dL (0.0-1.2) Aspartate Amino Transf (AST/SGOT) 10 U/L (5-40) Alanine Aminotransferase (ALT/SGPT) 6 U/L (3-41) Alkaline Phosphatase 93 U/L (40-129) Total Creatine Kinase 73 U/L (38-174) C-Reactive Protein, Quantitative 0.3 mg/dL (< 0.5) Pro-B-Type Natriuretic Peptide 1109 pg/mL (0-125) H Total Protein 6.5 g/dL (6.6-8.7) L Albumin 3.5 g/dL (3.5-5.2) Globulin 3.0 g/dL Albumin/Globulin Ratio 1.1 (1.0-2.7) Objective HEAD AND NECK: No JVD. LUNGS: Clear CARDIOVASCULAR: Regular S1 and S2 with no gallop or murmur. ABDOMEN: Soft. EXTREMITIES: 1+ pitting edema.MADI TALLEY Apr 29, 2017 17:30
--- NOTE | 2017-04-29 22:36 | Pulmonology Progress Note ---
Assessment/Plan Problems: (1) Hypoglycemia (2) Atrial fibrillation (3) Altered level of consciousness (4) HTN (hypertension) (5) BPH (benign prostatic hyperplasia) (6) Right BKA infection Assessment/Plan Heart rate controlled with coreg ON Epixiban med/surg dc planning with or without [place] dc with close outpatient f/u Subjective ROS Limited/Unobtainable: No Constitutional: Reports: no symptoms HEENT: Repors: no symptoms Allergies: Coded Allergies: No Known Allergies (Unverified , 04/25/17) Objective Last 24 Hour Vital Signs Date Time Temp Pulse Resp B/P (MAP) Pulse Ox O2 Delivery O2 Flow Rate FiO2 04/29/17 16:48 97.0 65 20 159/75 99 Room Air 04/29/17 13:12 68 153/61 04/29/17 12:57 97.2 70 20 161/79 100 Room Air 04/29/17 12:30 97.2 70 20 161/79 100 Room Air 04/29/17 10:42 66 154/74 04/29/17 08:42 68 178/75 04/29/17 08:37 98.2 67 20 163/78 100 Room Air 04/29/17 04:32 98.5 04/29/17 04:00 99.0 66 18 143/66 98 Room Air 04/29/17 00:00 98.5 65 18 154/58 99 Room Air Intake and Output 04/29/17 04/30/17 19:00 07:00 Intake Total 360 ml Balance 360 ml Intake Oral 360 ml General Appearance: WD/WN HEENT: normocephalic, atraumatic Respiratory/Chest: chest wall non-tender, lungs clear Cardiovascular: normal peripheral pulses, normal rate Abdomen: normal bowel sounds, soft, non tender Genitourinary: normal external genitalia Extremities: no cyanosis Skin: no rash, no ulcers Laboratory Tests 04/29/17 05:25: White Blood Count 10.4, Red Blood Count 2.83L, Hemoglobin 8.5L, Hematocrit 26.1L , Mean Corpuscular Volume 92, Mean Corpuscular Hemoglobin 30.2, Mean Corpuscular Hemoglobin Concent 32.7, Red Cell Distribution Width 16.6H, Platelet Count 195, Mean Platelet Volume 6.1L, Neutrophils (%) (Auto) 61.6, Lymphocytes (%) (Auto) 20.4, Monocytes (%) (Auto) 15.4H, Eosinophils (%) (Auto) 1.9, Basophils (%) (Auto) 0.8, Sodium Level 140, Potassium Level 5.3H, Chloride Level 103, Carbon Dioxide Level 28, Anion Gap 9, Blood Urea Nitrogen 28H, Creatinine 1.9H, Estimat Glomerular Filtration Rate 43.1, Glucose Level 155H, Calcium Level 9.0, Phosphorus Level 3.7, Magnesium Level 2.0, Total Bilirubin 0.2, Aspartate Amino Transf (AST/SGOT) 10, Alanine Aminotransferase (ALT/SGPT) 6 , Alkaline Phosphatase 93, Total Creatine Kinase 73, C-Reactive Protein, Quantitative 0.3, Pro-B-Type Natriuretic Peptide 1109H, Total Protein 6.5L, Albumin 3.5, Globulin 3.0, Albumin/Globulin Ratio 1.1 BRIAN HERNANDEZ Apr 29, 2017 22:36
--- NOTE | 2017-05-01 13:11 | Discharge Summary ---
Discharge Summary Hospital Course Date of Admission Apr 25, 2017 at 06:13 Date of Discharge Apr 29, 2017 at 18:39 Admitting Diagnosis persistant hypoglycemia; afib HPI Dario Tavarez is a 66 year old male who was admitted on Apr 25, 2017 at 06: 13 for Persistant Hypoglycemia,Atrial Fibrillation Hospital Course [id number] Discharge Discharge Disposition Patient was discharged to Home with Home Health(06) Discharge Diagnoses: Radha Boyd NP May 01, 2017 13:11
--- NOTE | 2017-05-02 00:30 | Discharge Summary 2 SIG ---
DATE OF ADMISSION: 04/25/2017 DATE OF DISCHARGE: 04/29/2017 ATTENDING PHYSICIAN: Bruno Serrato M.D. CONSULTANTS: 1. Randy Brown M.D. 2. Pradeep Ortiz M.D. 3. Edinson Pinedo M.D. BRIEF HOSPITAL COURSE: The patient is a 66-year-old male with history of diabetes mellitus type 2, presented to ED for altered mental status. He states that he actually ate an evening snack around 10 p.m., he then went to the restroom and began to feel dizzy and was unable to walk. He lives with a roommate and roommate called 911 after he became altered. Upon arrival of EMS, the patient's blood sugar was in the 30s. He was given IV dextrose in the field. He presented to [facility] and continued to have altered mental status. On evaluation, head CT showed no acute intracranial bleed, mass effect, or edema. There was mild atrophy of the brain and nonspecific white matter hypoattenuation probably due to chronic small vessel disease. Chest x-ray showed no acute findings. However, EKG, was in atrial fibrillation. Troponin was negative. He was then admitted to telemetry for altered mental status and hypoglycemia. He was seen by Dr. Ortiz. Atrial fibrillation was newly diagnosed. He was initially started on heparin drip and he was given carvedilol 6.25 mg b.i.d. He converted to sinus rhythm. Heparin drip was discontinued and he was started on Eliquis 5 mg b.i.d. He was also continued on his Lipitor 80 mg. Echocardiogram done showed ejection fraction of 55% with normal left ventricular systolic function and wall motion, mild left ventricular hypertrophy, and mildly thickened mitral valve leaflets with normal excursion. He also came in with an elevated renal function. Renal ultrasound done showed bladder outlet obstruction. He also has 3+ proteinuria and has diabetic and hypertensive nephropathy. He had anemia and was given one dose of IV iron and Flomax. He had stable creatinine. He came in with an open wound on the right anterior mid stump. Local wound care was done. The patient had no recurrence of chest pain or shortness of breath and heart rate was controlled with Coreg. The patient was eventually discharged home with home health. FINAL DIAGNOSES: 1. Altered mental status/acute metabolic encephalopathy due to hypoglycemia, resolved. 2. Acute on chronic renal failure. 3. Diabetic nephropathy with hypertensive nephropathy. 4. Hypercholesterolemia. 5. Episodes of hypoglycemia. 6. Hypertension. 7. Diabetes mellitus. 8. New-onset atrial fibrillation. 9. Bladder outlet obstruction. 10. Severe protein-calorie malnutrition. 11. Right below-knee amputation stump wound, present on admission. DISPOSITION: The patient was discharged home with home health. DISCHARGE MEDICATIONS: Refer to medication list. FOLLOWUP: Follow up with PMD in a week. ACTIVITY: As tolerated. Randy Brown M.D. I have been assigned to dictate discharge summary on this account and I was not involved in the patient's management. Radha Boyd N.P. DR: KUNAL JOB#: [id number] CC:
== END 2017-04-29 18:39 | disposition home health service (06) | DRG 637 ==
LOC: EDBD 04:46 → EMR 05:00 → 2E 06:13 → EDBEDREQ 07:02 → 2E 22:37 → 4E 04-28 16:19
DX: E11.649 Type 2 diabetes mellitus with hypoglycemia without coma (principal); G93.41 Metabolic encephalopathy; E43 Unspecified severe protein-calorie malnutrition; N17.9 Acute kidney failure, unspecified; I48.91 Unspecified atrial fibrillation; E11.22 Type 2 diabetes mellitus with diabetic chronic kidney disease; T87.89 Other complications of amputation stump; Z68.1 Body mass index [BMI] 19.9 or less, adult; I12.9 Hypertensive chronic kidney disease with stage 1 through stage 4 chronic kidney disease, or unspecified chronic kidney disease; Z89.611 Acquired absence of right leg above knee; Z79.4 Long term (current) use of insulin; Z79.84 Long term (current) use of oral hypoglycemic drugs; D64.9 Anemia, unspecified; E78.00 Pure hypercholesterolemia, unspecified; E11.65 Type 2 diabetes mellitus with hyperglycemia; N18.9 Chronic kidney disease, unspecified; Z72.0 Tobacco use; N32.0 Bladder-neck obstruction
CPT/HCPCS: 36415; 70450; 71010; 76775; 80048; 80053; 80061; 80300; 81001; 82550; 82553; 82607; 82728; 82747; 82962; 83036; 83540; 83550; 83735; 83880; 84100; 84133; 84134; 84300; 84439; 84443; 84484; 85025; 85610; 85730; 86140; 87081; 89050; 93005; 93306; 93925; 93970; 97802; 99285; J1815

== ENCOUNTER 2017-05-30 19:44 | Inpatient (IN) | payer MEDICARE ==
[~2017-05-30] VITALS: Ht 188 cm; Wt 50.8 kg
[~2017-05-30 19:44] MED LIST: ATORVASTATIN CA10 MG ORAL; COREG3.125 MG ORAL; COREG6.25 MG ORAL; FINASTERIDE1 MG PO; LANTUS SOL100 UNIT/1 SUBQ; LIPITOR80 MG ORAL; METFORMIN HCL500 M1 ORAL; NEURONTIN300 MG ORAL; NORVASC2.5 MG ORAL; TAMSULOSIN HCL0.4 MG ORAL
[2017-05-30 20:10] VITALS: BP 164/92
[2017-05-30 20:15] LABS: ABG ALLEN TEST POSITIVE; ABG BASE EXCESS 0; ABG PCO2 39.1 mmHg (35.0-45.0)
[2017-05-30 20:34] LABS: BASOPHILS % (AUTO) 1.6 % (0.0-2.0); EOSINOPHILS % (AUTO) 1.5 % (0.0-3.0); LYMPHOCYTES % (AUTO) 20.8 % (20.0-45.0); MEAN CORPUSCULAR HEMOGLOBIN 28.1 PG (27.0-31.0); MEAN CORPUSCULAR HGB CONC 30.9 G/DL (32.0-36.0); MEAN CORPUSCULAR VOLUME 91 FL (80-99); MEAN PLATELET VOLUME 5.9 FL (6.5-10.1); MONOCYTES % (AUTO) 8.4 % (1.0-10.0); NEUTROPHILS % (AUTO) 67.8 % (45.0-75.0); PLATELET COUNT 399 K/UL (150-450); RED BLOOD COUNT 3.75 M/UL (4.70-6.10); RED CELL DISTRIBUTION WIDTH 14.5 % (11.6-14.8)
[2017-05-30 20:38] LABS: PROTHROMBIN TIME 10.6 SEC (9.30-11.50)
[2017-05-30 20:49] LABS: POTASSIUM 5.2 mEQ/L (3.4-4.9)
[2017-05-30 20:50] LABS: REFLEX LACTIC ACID YES OR NO YES
[2017-05-30 20:51] LABS: TROPONIN I < 0.30 ng/mL (<=0.30)
[2017-05-30 20:57] LABS: MAGNESIUM 2.5 mg/dL (1.7-2.5)
[2017-05-30 21:00] LABS: CKMB 2.4 ng/mL (< 6.7)
[2017-05-30 21:06] LABS: ALBUMIN/GLOBULIN RATIO 0.7 (1.0-2.7); CALCIUM 10.2 mg/dL (8.6-10.2); CREATININE 2.7 mg/dL (0.7-1.2); GLOMERULAR FILTRATION RATE 28.8 mL/min (>60); TOTAL PROTEIN 8.1 g/dL (6.6-8.7)
[2017-05-30] MEDS ORDERED: Morphine Sulfate 4mg/ml Inj IVP ONE ×2 (21:30→23:30)
[2017-05-30 22:00] VITALS: BP 146/68
[2017-05-30] MEDS ORDERED: Nitroglycerin Subl 0.4mg tab SL PRN (22:00)
[2017-05-30] MEDS ORDERED: Ketorolac 30mg Inj IV PRN (22:00)
[2017-05-30] MEDS ORDERED: Mylanta II UD 30ml ORAL PRN (22:00)
[2017-05-30] MEDS ORDERED: Miralax 17gm pkt ORAL PRN (22:00)
[2017-05-30] MEDS ORDERED: Albuterol/Ipratropium 3ml neb HHN PRN (22:00)
[2017-05-30] MEDS: Morphine Sulfate 2mg/ml Inj IVP PRN (23:59)
--- NOTE | 2017-05-31 00:41 | Emergency Room Report ---
History of Present Illness General Chief Complaint: General Complaint Source: Patient Present Illness HPI Patient is 66-year-old male presented after increased right lower extremity pain. Patient had recent been having increased discharge from his stump. Patient was noted to have persistent pain. Patient had been taking gabapentin as well as multiple other medications. Patient is a type I diabetic. The patient been taking Bactrim. Patient had the syncopal episode while in the waiting room prior to being seen. Allergies: Coded Allergies: No Known Allergies (Unverified , 04/25/17) Patient History Past Medical History: see triage record Reviewed Nursing Documentation: PMH: Agreed, PSxH: Agreed Nursing Documentation-PMH Hx Hypertension: Yes Hx Diabetes: Yes Review of Systems All Other Systems: limited - by mental status Physical Exam Vital Signs Date Time Temp Pulse Resp B/P (MAP) Pulse Ox O2 Delivery O2 Flow Rate FiO2 05/30/17 20:01 98.2 75 14 164/92 100 Room Air General Appearance: alert, GCS 15, severe distress ENT: uvula midline Respiratory: lungs clear, normal breath sounds, no rhonchi Cardiovascular #1: regular rate, rhythm, no edema Gastrointestinal: normal bowel sounds, non tender, soft, no mass Musculoskeletal: back normal, other - right leg aka Neurologic: normal inspection, alert, oriented x3 Psychiatric: normal inspection Skin: pallor, diaphoresis, other - small ulcer to right leg stump without erythema Medical Decision Making Diagnostic Impression: Primary Impression: Syncope Additional Impression: Uncontrolled diabetes mellitus ER Course Patient presented for syncope. Differential diagnosis included wasn't limited hypovolemia, hypoglycemia, dehydration among others.Because of complexity of patient's case laboratory testing and imaging studies were ordered. EKG interpreted a nm showed normal sinus rhythm with the inferior ST depression. Patient noted have biatrial enlargement. The initial troponin was negative patient was noted to have markedly elevated blood sugar as well as elevated lactic acid level. Dr. Bruno Serrato was contacted for inpatient managementThe patient was given medications for pain. Labs Test 05/30/17 19:50 05/30/17 20:07 05/30/17 22:30 White Blood Count 10.0 K/UL (4.8-10.8) Red Blood Count 3.75 M/UL (4.70-6.10) Hemoglobin 10.5 G/DL (14.2-18.0) Hematocrit 34.1 % (42.0-52.0) Mean Corpuscular Volume 91 FL (80-99) Mean Corpuscular Hemoglobin 28.1 PG (27.0-31.0) Mean Corpuscular Hemoglobin Concent 30.9 G/DL (32.0-36.0) Red Cell Distribution Width 14.5 % (11.6-14.8) Platelet Count 399 K/UL (150-450) Mean Platelet Volume 5.9 FL (6.5-10.1) Neutrophils (%) (Auto) 67.8 % (45.0-75.0) Lymphocytes (%) (Auto) 20.8 % (20.0-45.0) Monocytes (%) (Auto) 8.4 % (1.0-10.0) Eosinophils (%) (Auto) 1.5 % (0.0-3.0) Basophils (%) (Auto) 1.6 % (0.0-2.0) Prothrombin Time 10.6 SEC (9.30-11.50) Prothromb Time International Ratio 1.0 (0.9-1.1) Activated Partial Thromboplast Time 29 SEC (23-33) Sodium Level 128 mEQ/L (135-145) Potassium Level 5.2 mEQ/L (3.4-4.9) Chloride Level 87 mEQ/L (98-107) Carbon Dioxide Level 24 mEQ/L (20-30) Anion Gap 17 (5-15) Blood Urea Nitrogen 59 mg/dL (7-23) Creatinine 2.7 mg/dL (0.7-1.2) Estimat Glomerular Filtration Rate 28.8 mL/min (>60) Glucose Level 581 mg/dL (74-106) Calcium Level 10.2 mg/dL (8.6-10.2) Magnesium Level 2.5 mg/dL (1.7-2.5) Total Bilirubin 0.3 mg/dL (0.0-1.2) Aspartate Amino Transf (AST/SGOT) 9 U/L (5-40) Alanine Aminotransferase (ALT/SGPT) 8 U/L (3-41) Alkaline Phosphatase 142 U/L (40-129) Total Creatine Kinase 54 U/L (38-174) Creatine Kinase MB 2.4 ng/mL (< 6.7) Creatine Kinase MB Relative Index 4.4 Troponin I < 0.30 ng/mL (<=0.30) Total Protein 8.1 g/dL (6.6-8.7) Albumin 3.5 g/dL (3.5-5.2) Globulin 4.6 g/dL Albumin/Globulin Ratio 0.7 (1.0-2.7) Acetone Level Positive-small (NEGATIVE) Arterial Blood pH 7.414 (7.350-7.450) Arterial Blood Partial Pressure CO2 39.1 mmHg (35.0-45.0) Arterial Blood Partial Pressure O2 88.5 mmHg (75.0-100.0) Arterial Blood HCO3 24.5 mmol/L (22.0-26.0) Arterial Blood Oxygen Saturation 96.5 % (92.0-98.0) Arterial Blood Base Excess 0 Carlos A Test Positive Lactic Acid Level 1.80 mmol/L (0.66-2.22) EKG Diagnostic Results Rate: normal Rhythm: NSR ST Segments: other - inferior st depression Last Vital Signs Date Time Temp Pulse Resp B/P (MAP) Pulse Ox O2 Delivery O2 Flow Rate FiO2 05/30/17 22:16 98.3 05/30/17 22:00 68 14 146/68 100 Room Air Status: unchanged Disposition: ADMITTED INPATIENT Condition: Serious Referrals: NOT CHOSEN IPA/,REFERRING (PCP) Ryder Holman May 31, 2017 00:41
[2017-05-31] MEDS ORDERED: Vancomycin 1gm/D5W 275ml IVPB SCH ×2 (02:00)
[2017-05-31] MEDS ORDERED: Vancomycin 1gm inj IVPB ONE (02:47)
[2017-05-31] MEDS ORDERED: Zosyn 3.375gm inj ONE (02:47)
[2017-05-31 04:00] VITALS: BP 209/105
[2017-05-31] MEDS: Piperacillin/Tazobactam 3.375 GM in NS 110 ML IVPB SCH ×3 (04:30→20:18)
[2017-05-31] MEDS: Morphine Sulfate 2mg/ml Inj IVP PRN ×4 (04:31→19:49)
[2017-05-31] MEDS ORDERED: NovoLOG Insulin Flexpen SUBQ SCH (06:30)
[2017-05-31 08:00] VITALS: BP 132/75
[2017-05-31 08:43] LABS: CALCIUM 9.5 mg/dL (8.6-10.2); CREATININE 2.3 mg/dL (0.7-1.2); GLOMERULAR FILTRATION RATE 34.7 mL/min (>60)
[2017-05-31 08:46] LABS: POTASSIUM 6.1 mEQ/L (3.4-4.9)
[2017-05-31] MEDS: Heparin 5000 units/ml inj SUBQ SCH ×2 (09:32→21:41)
--- NOTE | 2017-05-31 09:41 | Consultation ---
Consult Note Consult Note Chief Complaint: General Complaint Patient is 66-year-old male presented after increased right lower extremity pain. Patient had recent been having increased discharge from his stump. Patient was noted to have persistent pain. Patient had been taking gabapentin as well as multiple other medications. Patient is a type I diabetic. The patient been taking Bactrim. Patient had the syncopal episode while in the waiting room prior to being seen. Allergies: Coded Allergies: No Known Allergies (Unverified , 04/25/17) Patient History Past Medical History: see triage record Reviewed Nursing Documentation: PMH: Agreed, PSxH: Agreed interviewed examined data reviewed Assessment/Plan admitted for syncope Has DM OOC h/o A fib acute renal failure on CRI previous Cr 1.9 h/o bladder outlet obstruction) per AILYN in past Also due to DM and HTN, has 3+ Proteinuria anemia DM HTN R BKA stump wound BLE pain severe protein calorie malnutrition Urinary retention due to bladder out let Obstruction bladder outlet obstruction Plan: hydrate- kayexelate Optimize BS and BP status Avoid nephrotoxics Flomax BID Anemia TYE Aranda May 31, 2017 09:41
--- NOTE | 2017-05-31 09:59 | Consultation ---
Consult Note Consult Note [facility] # [id number] JULIANE JACKSON M.D. May 31, 2017 09:59
[2017-05-31] MEDS ORDERED: Tamsulosin 0.4mg cap ORAL ONE (10:00)
[2017-05-31] MEDS ORDERED: Sodium Polystyrene Sulfonate 15gm Powder ORAL ONE (10:00)
[2017-05-31 10:05] LABS: BASOPHILS % (AUTO) 0.8 % (0.0-2.0); EOSINOPHILS % (AUTO) 2.1 % (0.0-3.0); LYMPHOCYTES % (AUTO) 20.5 % (20.0-45.0); MEAN CORPUSCULAR HEMOGLOBIN 28.3 PG (27.0-31.0); MEAN CORPUSCULAR HGB CONC 31.1 G/DL (32.0-36.0); MEAN CORPUSCULAR VOLUME 91 FL (80-99); MEAN PLATELET VOLUME 7.9 FL (6.5-10.1); MONOCYTES % (AUTO) 11.3 % (1.0-10.0); NEUTROPHILS % (AUTO) 65.4 % (45.0-75.0); PLATELET COUNT 446 K/UL (150-450); RED BLOOD COUNT 3.37 M/UL (4.70-6.10); RED CELL DISTRIBUTION WIDTH 14.7 % (11.6-14.8); WHITE BLOOD COUNT 7.6 K/UL (4.8-10.8)
[2017-05-31 10:10] LABS: PROTHROMBIN TIME 10.7 SEC (9.30-11.50)
[2017-05-31 10:22] LABS: HEMOGLOBIN A1C 12.4 % (< 6.0)
[2017-05-31 10:23] LABS: LACTATE DEHYDROGENASE 218 U/L (135-230)
[2017-05-31 10:26] LABS: ALBUMIN/GLOBULIN RATIO 0.9 (1.0-2.7); CALCIUM 9.4 mg/dL (8.6-10.2); CREATININE 2.3 mg/dL (0.7-1.2); GLOMERULAR FILTRATION RATE 34.7 mL/min (>60); POTASSIUM 5.2 mEQ/L (3.4-4.9); TOTAL PROTEIN 7.6 g/dL (6.6-8.7)
[2017-05-31 10:30] LABS: THYROID STIMULATING HORMONE 2.7 uIU/mL (0.300-4.500)
[2017-05-31 10:52] LABS: ACANTHOCYTES 1+; BAND NEUTROPHILS % (MANUAL) 0 % (0-8); BASOPHILS % (MANUAL) 1 % (0-2); EOSINOPHILS % (MANUAL) 1 % (0-3); HEMOLYSIS 0; HYPOCHROMASIA 1+; IRON 49 ug/dL (59-158); LYMPHOCYTES % (MANUAL) 21 % (20-45); NEUTROPHILS % (MANUAL) 66 % (45-75); PLATELET ESTIMATE INCREASED; PLATELET MORPHOLOGY NORMAL; TOTAL CELLS COUNTED 100; TOTAL IRON BINDING CAPACITY 199 ug/dL (250-400)
[2017-05-31 10:53] LABS: STOMATOCYTES 1+
[2017-05-31 10:54] LABS: PATH BLOOD SMEAR/OMC SEND TO PATHOLOGIST
[2017-05-31] MEDS: NovoLOG Insulin Flexpen SUBQ SCH ×3 (11:29→21:40)
[2017-05-31 11:57] LABS: ERYTHROCYTE SEDIMENTATION RATE 112 MM/HR (0-20)
[2017-05-31 12:00] VITALS: BP 167/89
[2017-05-31 12:17] LABS: CALCIUM 9.2 mg/dL (8.6-10.2); CREATININE 2.1 mg/dL (0.7-1.2); GLOMERULAR FILTRATION RATE 38.5 mL/min (>60); POTASSIUM 5.1 mEQ/L (3.4-4.9)
[2017-05-31 12:53] LABS: APPEARANCE,URINE SLIGHTLY CLOUDY; KETONES,URINE NEGATIVE (NEGATIVE); LEUKOCYTE ESTERASE ,URINE 3+ (NEGATIVE); NITRITE,URINE POSITIVE (NEGATIVE); PH,URINE 6 (4.5-8.0); PROTEIN,URINE 3+ (NEGATIVE); UROBILINOGEN,URINE NORMAL MG/DL (0.0-1.0)
[2017-05-31 13:08] LABS: BACTERIA,URINE MODERATE /HPF; SQUAMOUS EPITHELIAL CELL,UR FEW /LPF (NONE/OCC); WBC,URINE 30-40 /HPF (0 - 0)
--- NOTE | 2017-05-31 13:20 | Consultation ---
History of Present Illness General Date patient seen: May 31, 2017 Chief Complaint: General Complaint Reason for Consultation: inpatient management Present Illness HPI 66-year-old male with hx of DM, cachexia, HTN, R BKA presented after increased right lower extremity pain. Patient had the syncopal episode while in the waiting room prior to being seen. Pt was admitted for possible sepsis and stump infection and syncope Allergies: Coded Allergies: No Known Allergies (Unverified , 04/25/17) Medication History Scheduled Amlodipine Besylate (Norvasc), 2.5 MG ORAL DAILY, (Reported) Atorvastatin (Lipitor), 80 MG ORAL BEDTIME, (Reported) Carvedilol (Coreg), 6.25 MG ORAL EVERY 12 HOURS Gabapentin (Neurontin), 300 MG ORAL BEDTIME, (Reported) Metformin Hcl* (Metformin Hcl*), 500 MG ORAL TWICE A DAY, (Reported) Tamsulosin Hcl (Tamsulosin Hcl*), 0.4 MG ORAL BEDTIME, (Reported) Miscellaneous Medications Finasteride (Finasteride), 1 MG PO, (Reported) Patient History Healthcare decision maker Resuscitation status Full Code Advanced Directive on File Past Medical/Surgical History Past Medical/Surgical History: (1) BPH (benign prostatic hyperplasia) (2) Right BKA infection (3) HTN (hypertension) (4) Diabetes mellitus Review of Systems Musculoskeletal: Reports: other - RBK amputation All Other Systems: negative except mentioned in HPI Physical Exam General Appearance: cachetic Lines, tubes and drains: peripheral HEENT: normocephalic, atraumatic, anicteric Neck: non-tender, normal alignment Respiratory/Chest: chest wall non-tender, lungs clear Breasts: no masses Cardiovascular/Chest: normal peripheral pulses Abdomen: normal bowel sounds, non tender Genitourinary/Rectal: normal genital exam, normal rectal exam Extremities: normal range of motion, non-tender 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 Lymphatic: posterior cervical (L) Last 24 Hour Vital Signs Date Time Temp Pulse Resp B/P (MAP) Pulse Ox O2 Delivery O2 Flow Rate FiO2 05/31/17 12:00 57 05/31/17 12:00 97.3 58 18 167/89 100 Room Air 05/31/17 11:17 60 167/89 05/31/17 08:00 96.6 63 18 132/75 100 05/31/17 08:00 63 05/31/17 07:40 Room Air 21 05/31/17 07:40 100 Room Air 21 05/31/17 04:54 200/90 05/31/17 04:00 97.0 65 21 209/105 100 Room Air 05/31/17 04:00 55 05/31/17 00:28 64 05/30/17 23:40 98.3 68 14 146/68 100 Room Air 05/30/17 22:16 98.3 05/30/17 22:00 98.3 68 14 146/68 100 Room Air 05/30/17 20:10 98.2 14 164/92 100 Room Air 05/30/17 20:01 98.2 75 14 164/92 100 Room Air Intake and Output 05/31/17 06/01/17 19:00 07:00 Intake Total 267.5 ml Output Total 200 ml Balance 67.5 ml Intake Oral 240 ml IV Total 27.5 ml Output Urine Total 200 ml Laboratory Tests Test 05/30/17 19:50 05/30/17 20:07 05/30/17 22:30 05/31/17 07:18 White Blood Count 10.0 K/UL (4.8-10.8) Red Blood Count 3.75 M/UL (4.70-6.10) L Hemoglobin 10.5 G/DL (14.2-18.0) L Hematocrit 34.1 % (42.0-52.0) L Mean Corpuscular Volume 91 FL (80-99) Mean Corpuscular Hemoglobin 28.1 PG (27.0-31.0) Mean Corpuscular Hemoglobin Concent 30.9 G/DL (32.0-36.0) L Red Cell Distribution Width 14.5 % (11.6-14.8) Platelet Count 399 K/UL (150-450) Mean Platelet Volume 5.9 FL (6.5-10.1) L Neutrophils (%) (Auto) 67.8 % (45.0-75.0) Lymphocytes (%) (Auto) 20.8 % (20.0-45.0) Monocytes (%) (Auto) 8.4 % (1.0-10.0) Eosinophils (%) (Auto) 1.5 % (0.0-3.0) Basophils (%) (Auto) 1.6 % (0.0-2.0) Prothrombin Time 10.6 SEC (9.30-11.50) Prothromb Time International Ratio 1.0 (0.9-1.1) Activated Partial Thromboplast Time 29 SEC (23-33) Sodium Level 128 mEQ/L (135-145) L 132 mEQ/L (135-145) L Potassium Level 5.2 mEQ/L (3.4-4.9) H 6.1 mEQ/L (3.4-4.9) *H Chloride Level 87 mEQ/L (98-107) L 94 mEQ/L (98-107) L Carbon Dioxide Level 24 mEQ/L (20-30) 23 mEQ/L (20-30) Anion Gap 17 (5-15) H 15 (5-15) Blood Urea Nitrogen 59 mg/dL (7-23) H 56 mg/dL (7-23) H Creatinine 2.7 mg/dL (0.7-1.2) H 2.3 mg/dL (0.7-1.2) H Estimat Glomerular Filtration Rate 28.8 mL/min (>60) 34.7 mL/min (>60) Glucose Level 581 mg/dL (74-106) *H 431 mg/dL (74-106) #H Lactic Acid Level 2.80 mmol/L (0.66-2.22) H 1.80 mmol/L (0.66-2.22) Calcium Level 10.2 mg/dL (8.6-10.2) 9.5 mg/dL (8.6-10.2) Magnesium Level 2.5 mg/dL (1.7-2.5) Total Bilirubin 0.3 mg/dL (0.0-1.2) Aspartate Amino Transf (AST/SGOT) 9 U/L (5-40) Alanine Aminotransferase (ALT/SGPT) 8 U/L (3-41) Alkaline Phosphatase 142 U/L (40-129) H Total Creatine Kinase 54 U/L (38-174) Creatine Kinase MB 2.4 ng/mL (< 6.7) Creatine Kinase MB Relative Index 4.4 Troponin I < 0.30 ng/mL (<=0.30) Total Protein 8.1 g/dL (6.6-8.7) Albumin 3.5 g/dL (3.5-5.2) Globulin 4.6 g/dL Albumin/Globulin Ratio 0.7 (1.0-2.7) L Acetone Level Positive-small (NEGATIVE) Arterial Blood pH 7.414 (7.350-7.450) Arterial Blood Partial Pressure CO2 39.1 mmHg (35.0-45.0) Arterial Blood Partial Pressure O2 88.5 mmHg (75.0-100.0) Arterial Blood HCO3 24.5 mmol/L (22.0-26.0) Arterial Blood Oxygen Saturation 96.5 % (92.0-98.0) Arterial Blood Base Excess 0 Carlos A Test Positive Test 05/31/17 09:15 05/31/17 11:40 05/31/17 12:10 White Blood Count 7.6 K/UL (4.8-10.8) Red Blood Count 3.37 M/UL (4.70-6.10) L Hemoglobin 9.6 G/DL (14.2-18.0) L Hematocrit 30.7 % (42.0-52.0) L Mean Corpuscular Volume 91 FL (80-99) Mean Corpuscular Hemoglobin 28.3 PG (27.0-31.0) Mean Corpuscular Hemoglobin Concent 31.1 G/DL (32.0-36.0) L Red Cell Distribution Width 14.7 % (11.6-14.8) Platelet Count 446 K/UL (150-450) Mean Platelet Volume 7.9 FL (6.5-10.1) Neutrophils (%) (Auto) 65.4 % (45.0-75.0) Lymphocytes (%) (Auto) 20.5 % (20.0-45.0) Monocytes (%) (Auto) 11.3 % (1.0-10.0) H Eosinophils (%) (Auto) 2.1 % (0.0-3.0) Basophils (%) (Auto) 0.8 % (0.0-2.0) Differential Total Cells Counted 100 Neutrophils % (Manual) 66 % (45-75) Lymphocytes % (Manual) 21 % (20-45) Monocytes % (Manual) 11 % (1-10) H Eosinophils % (Manual) 1 % (0-3) Basophils % (Manual) 1 % (0-2) Band Neutrophils 0 % (0-8) Platelet Estimate Increased H Platelet Morphology Normal Hypochromasia 1+ Stomatocytes 1+ Acanthocytes 1+ Erythrocyte Sedimentation Rate 112 MM/HR (0-20) H Reticulocyte Count 1.0 % (0.0-2.0) Prothrombin Time 10.7 SEC (9.30-11.50) Prothromb Time International Ratio 1.0 (0.9-1.1) Activated Partial Thromboplast Time 31 SEC (23-33) Sodium Level 132 mEQ/L (135-145) L 130 mEQ/L (135-145) L Potassium Level 5.2 mEQ/L (3.4-4.9) H 5.1 mEQ/L (3.4-4.9) H Chloride Level 93 mEQ/L (98-107) L 93 mEQ/L (98-107) L Carbon Dioxide Level 25 mEQ/L (20-30) 25 mEQ/L (20-30) Anion Gap 14 (5-15) 12 (5-15) Blood Urea Nitrogen 54 mg/dL (7-23) H 53 mg/dL (7-23) H Creatinine 2.3 mg/dL (0.7-1.2) H 2.1 mg/dL (0.7-1.2) H Estimat Glomerular Filtration Rate 34.7 mL/min (>60) 38.5 mL/min (>60) Glucose Level 496 mg/dL (74-106) H 500 mg/dL (74-106) H Hemoglobin A1c 12.4 % (< 6.0) H Calcium Level 9.4 mg/dL (8.6-10.2) 9.2 mg/dL (8.6-10.2) Iron Level 49 ug/dL (59-158) L Total Iron Binding Capacity 199 ug/dL (250-400) L Percent Iron Saturation 25 % (15-50) Unsaturated Iron Binding 150 ug/dL (112-346) Total Bilirubin 0.3 mg/dL (0.0-1.2) Aspartate Amino Transf (AST/SGOT) 7 U/L (5-40) Alanine Aminotransferase (ALT/SGPT) 7 U/L (3-41) Alkaline Phosphatase 125 U/L (40-129) Lactate Dehydrogenase 218 U/L (135-230) Total Protein 7.6 g/dL (6.6-8.7) Albumin 3.6 g/dL (3.5-5.2) Globulin 4.0 g/dL Albumin/Globulin Ratio 0.9 (1.0-2.7) L Triglycerides Level 112 mg/dL (< 150) Cholesterol Level 131 mg/dL (< 200) LDL Cholesterol 65 mg/dL (60-99) HDL Cholesterol 44 mg/dL (> 60) Cholesterol/HDL Ratio 3.0 (3.3-4.4) L Carcinoembryonic Antigen 6.0 ng/mL H Vitamin B12 Level > 2000 pg/mL (211-946) H Folate Pending Thyroid Stimulating Hormone (TSH) 2.700 uIU/mL (0.300-4.500) Urine Color Pale yellow Urine Appearance Slightly cloudy Urine pH 6 (4.5-8.0) Urine Specific [place] 1.010 (1.005-1.035) Urine Protein 3+ (NEGATIVE) H Urine Glucose (UA) 4+ (NEGATIVE) H Urine Ketones Negative (NEGATIVE) Urine Occult Blood 2+ (NEGATIVE) H Urine Nitrite Positive (NEGATIVE) H Urine Bilirubin Negative (NEGATIVE) Urine Urobilinogen Normal MG/DL (0.0-1.0) Urine Leukocyte Esterase 3+ (NEGATIVE) H Urine RBC 5-10 /HPF (0 - 0) H Urine WBC 30-40 /HPF (0 - 0) H Urine Squamous Epithelial Cells Few /LPF (NONE/OCC) Urine Bacteria Moderate /HPF (NONE) H Urine Random Sodium 46 mmol/L Height (Feet): 6 Height (Inches): 2.00 Weight (Pounds): 112 Medications Current Medications Medications (Trade) Dose Ordered Sig/Dragan Route PRN Reason Start Time Stop Time Status Last Admin Dose Admin Acetaminophen (Tylenol) 650 mg Q4H PRN ORAL fever 05/30/17 22:00 06/29/17 21:59 Albuterol/ Ipratropium (DuoNeb 0.5-3(2.5)mg/3ml) 3 ml EVERY 4 HOURS PRN HHN Shortness of Breath 05/30/17 22:00 06/04/17 21:59 Atorvastatin Calcium (Lipitor) 80 mg BEDTIME ORAL 05/31/17 21:00 06/30/17 20:59 Carvedilol (Coreg) 6.25 mg EVERY 12 HOURS ORAL 05/31/17 21:00 06/30/17 20:59 Clonidine HCl (Catapres) 0.1 mg EVERY 4 HOURS PRN ORAL sbp more than 160 05/30/17 22:00 06/29/17 21:59 05/31/17 04:54 Dextrose (Dextrose 50%) STAT PRN IV Hypoglycemia 05/31/17 10:00 06/30/17 09:59 Heparin Sodium (Porcine) (Heparin 5000 units/ml) 5,000 units EVERY 12 HOURS SUBQ 05/31/17 09:00 06/30/17 08:59 05/31/17 09:32 Insulin Aspart (NovoLOG) BEFORE MEALS AND HS SUBQ 05/31/17 11:30 06/30/17 11:29 05/31/17 11:29 Lansoprazole (Prevacid) 30 mg DAILY ORAL 05/31/17 09:45 06/30/17 09:44 05/31/17 11:13 Morphine Sulfate (Morphine Sulfate) 2 mg EVERY 4 HOURS PRN IVP severe pain 7-10 05/30/17 22:00 06/06/17 21:59 05/31/17 09:31 Nifedipine (Procardia XL) 60 mg DAILY ORAL 05/31/17 09:45 06/30/17 09:44 05/31/17 11:17 Nitroglycerin (Ntg) 0.4 mg Q5M X 3 DOSES PRN SL Prn Chest Pain 05/30/17 22:00 06/29/17 21:59 Ondansetron HCl (Zofran) 4 mg Q6H PRN IVP Nausea & Vomiting 05/30/17 22:00 06/29/17 21:59 05/31/17 00:00 Piperacillin Sod/ Tazobactam Sod 3.375 gm/Sodium Chloride 110 ml @ 27.5 mls/hr Q8H IVPB 05/31/17 04:00 06/07/17 03:59 05/31/17 11:17 Polyethylene Glycol (Miralax) 17 gm HSPRN PRN ORAL Constipation 05/30/17 22:00 06/29/17 21:59 Sodium Chloride 1,000 ml @ 100 mls/hr Q10H IVLG 05/31/17 01:00 06/30/17 00:59 05/31/17 09:39 Tamsulosin HCl (Flomax) 0.4 mg Q12HR ORAL 05/31/17 21:00 06/30/17 20:59 Temazepam (Restoril) 15 mg HSPRN PRN ORAL Insomnia 05/30/17 22:00 06/06/17 21:59 Vancomycin HCl (Vanco rx to dose) 1 ea DAILY PRN MISC Per rx protocol 05/30/17 22:00 06/29/17 21:59 Assessment/Plan Problem List: (1) Syncope ICD Codes: R55 - Syncope and collapse SNOMED: 437615466, 42095961 (2) Sepsis ICD Codes: A41.9 - Sepsis, unspecified organism SNOMED: 89696914 (3) Right BKA infection ICD Codes: T87.43 - Infection of amputation stump, right lower extremity SNOMED: 034430287 (4) HTN (hypertension) ICD Codes: I10 - Essential (primary) hypertension SNOMED: 04742897 (5) Diabetes mellitus ICD Codes: E11.9 - Type 2 diabetes mellitus without complications SNOMED: 01453474 (6) Renal failure ICD Codes: N19 - Unspecified kidney failure SNOMED: 84392961 (7) BPH (benign prostatic hyperplasia) ICD Codes: N40.0 - Benign prostatic hyperplasia without lower urinary tract symptoms SNOMED: 933240952, 592993571 Assessment/Plan wound care telemetry echo cardiology to see mindy morales w/u BRIAN HERNANDEZ May 31, 2017 13:20
--- NOTE | 2017-05-31 14:23 | History & Physical ---
History and Physical History & Physicial Dictated for Int Med-Dr Serrato no.[id number]. MARYANNE SMALLS May 31, 2017 14:23
[2017-05-31 16:51] VITALS: BP 144/69
[2017-05-31] MEDS ORDERED: D5W 275ml ONE (17:35)
[2017-05-31] MEDS ORDERED: Tubing IV Secondary IV ONE (17:35)
[2017-05-31 20:00] VITALS: BP 151/84
[2017-05-31 20:47] LABS: URIC ACID 7.4 mg/dL (3.0-7.5)
[2017-05-31] MEDS ORDERED: Levemir Flexpen SUBQ SCH (21:00)
[2017-05-31] MEDS ORDERED: Tamsulosin 0.4mg cap ORAL SCH (21:00)
[2017-05-31] MEDS: Carvedilol 6.25mg Tab ORAL SCH (21:36)
[2017-05-31] MEDS: Atorvastatin 80mg tab ORAL SCH (21:36)
[2017-05-31] MEDS: Tamsulosin 0.4mg cap ORAL SCH (21:37)
[2017-06-01] VITALS (7 sets, daily range): BP systolic 103–157; BP diastolic 55–84
[2017-06-01] MEDS: Morphine Sulfate 2mg/ml Inj IVP PRN ×4 (00:05→20:52)
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
--- NOTE | 2017-06-01 03:17 | History and Physical Report ---
DATE OF ADMISSION: 05/30/[address] Serrato. Chief Complaint: The patient is a 66-year-old male, presents with chief complaint of bilateral lower extremity pain. History Of Present Illness: The patient has a history of right xgwim-hzs-xazq amputation. The patient is complaining of pain of the right swgfi-leh-zveq amputation site. The patient complains of discharge from the right wvhdr-smi-sxpl amputation site. The patient was started on Bactrim at an outside facility. The patient also complains of left lower extremity pain from the knee to the ankle. The patient presented to [place] emergency room. The patient has syncopal episode in the emergency room. The patient is admitted for bilateral lower extremity pain and syncopal episode. PAST MEDICAL HISTORY: Significant for: 1. Type 2 diabetes. 2. Hypertension. 3. Hypercholesterolemia. 4. History of atrial fibrillation. Past Surgical History: Significant for right rvcwi-cch-vest amputation. CURRENT MEDICATIONS: 1. Amlodipine 2.5 mg one tablet p.o. daily. 2. Lipitor 80 mg one tablet p.o. at bedtime. 3. Coreg 6.25 mg one tablet p.o. twice daily. 4. Finasteride 1 mg one tablet p.o. daily. 5. Gabapentin 300 mg one tablet p.o. at bedtime. 6. Metformin 500 mg one tablet p.o. twice daily. 7. Flomax 0.4 mg one tablet p.o. at bedtime. 8. NovoLog sliding scale. 9. Lantus 14 units subcutaneously at bedtime. ALLERGIES: No known drug allergies. Social History: The patient is a . The patient lives with a current girlfriend. The patient admits to tobacco use one pack per day. The patient denies alcohol use. Review Of Systems: Constitutional: The patient denies weight loss or weight gain. The patient denies fevers or chills. HEENT: The patient denies ear or throat pain. The patient denies headache. Cardiovascular: The patient denies palpitations or chest pain. Chest: The patient denies wheezes or shortness of breath. Abdominal: The patient denies nausea, vomiting, diarrhea, or constipation. Genitourinary: The patient denies dysuria or increased frequency of urination. Neuromuscular: The patient complains of bilateral lower extremity pain as above. The patient had a syncopal episode in the emergency room as above. The patient denies seizures or generalized weakness. PHYSICAL EXAMINATION: Vital Signs: Temperature 97.0, respirations 21, pulse 65, blood pressure elevated 200 to 209/90 to 105. General: The patient is thin-appearing male, in no apparent distress. HEENT: Eyes, pupils are equal and responsive to light and accommodation. Extraocular movements are intact. NECK: Supple without lymphadenopathy. Chest: Lungs are clear to auscultation bilaterally without wheezes or rales. Cardiovascular: Regular rhythm and rate. S1 and S2 are normal without murmurs, rubs, or gallops. Abdomen: Soft, nontender, and nondistended. Positive bowel sounds. No evidence of hepatosplenomegaly. Currently, no rebound or guarding noted. Extremities: There is a right dnnij-sjx-xlsz amputation noted. There is a wound, which is currently with a dressing in place. There is a purulent discharge noted on the dressing. Neurologic: Cranial nerves II to XII are grossly intact without focal deficits. Motor strength is 5/5 bilaterally. Deep tendon reflexes are 2+ plantar. Laboratory Studies: WBC 10.3, hemoglobin 10.5, hematocrit 34.1, and platelets 309,000. Sodium 132, potassium elevated at 6.1, chloride 94, CO2 23, BUN elevated at 56, creatinine 2.3, and glucose 431. ASSESSMENT: This is a 66-year-old male. 1. Right xqfld-gcf-ublk amputation pain. 2. Left lower extremity pain. 3. Syncopal episode. 4. Diabetes type 2. 5. Hypertension. 6. Hypercholesterolemia. 7. History of atrial fibrillation. TREATMENT: 1. Right pruro-wug-pxpf amputation pain/wound. Infectious Disease consultation has been obtained with Dr. Briceno. The patient has been started empirically on intravenous Zosyn. We will follow recommendation of Infectious Disease. 2. Left lower extremity pain. 3. Syncopal episode. This may be secondary to hyperglycemia as above. 4. Diabetes type 2, uncontrolled. An Endocrinology consultation has been obtained with Dr. Jensen. Continue NovoLog sliding scale. Continue Levemir 14 units subcutaneously at bedtime. 5. Hypertension. The patient is currently on Coreg 6.25 mg one tablet p.o. twice daily. Clonidine has been added p.r.n. for systolic greater than 150 or diastolic greater than 100. 6. Hypercholesteremia. Continue Lipitor as above. 7. Atrial fibrillation. Felton Medellin M.D. DR: EZEQUIEL JOB#: [id number] CC:
[2017-06-01] MEDS: Piperacillin/Tazobactam 3.375 GM in NS 110 ML IVPB SCH ×3 (04:12→20:12)
[2017-06-01] MEDS: NovoLOG Insulin Flexpen SUBQ SCH ×6 (06:30→20:39)
[2017-06-01 08:11] LABS: BASOPHILS % (AUTO) 0.5 % (0.0-2.0); EOSINOPHILS % (AUTO) 2.3 % (0.0-3.0); LYMPHOCYTES % (AUTO) 22.2 % (20.0-45.0); MEAN CORPUSCULAR HEMOGLOBIN 29.2 PG (27.0-31.0); MEAN CORPUSCULAR HGB CONC 32.2 G/DL (32.0-36.0); MEAN CORPUSCULAR VOLUME 90 FL (80-99); MONOCYTES % (AUTO) 9.5 % (1.0-10.0); NEUTROPHILS % (AUTO) 65.4 % (45.0-75.0); PLATELET COUNT 344 K/UL (150-450); RED BLOOD COUNT 2.84 M/UL (4.70-6.10); RED CELL DISTRIBUTION WIDTH 14.6 % (11.6-14.8); WHITE BLOOD COUNT 7.8 K/UL (4.8-10.8)
[2017-06-01] MEDS: Carvedilol 6.25mg Tab ORAL SCH (08:24)
[2017-06-01] MEDS: Tamsulosin 0.4mg cap ORAL SCH ×2 (08:25→20:31)
[2017-06-01] MEDS: Heparin 5000 units/ml inj SUBQ SCH ×2 (08:27→20:31)
[2017-06-01 08:29] LABS: CALCIUM 8.6 mg/dL (8.6-10.2); CREATININE 2.1 mg/dL (0.7-1.2); GLOMERULAR FILTRATION RATE 38.5 mL/min (>60); POTASSIUM 3.8 mEQ/L (3.4-4.9)
[2017-06-01 08:39] LABS: BILIRUBIN,DIRECT 0.1 mg/dL (0.1-0.3); MAGNESIUM 2.1 mg/dL (1.7-2.5); PHOSPHORUS 3.3 mg/dL (2.5-4.8); TOTAL PROTEIN 5.7 g/dL (6.6-8.7)
--- NOTE | 2017-06-01 09:40 | Infectious Diseases Prog Note ---
Assessment/Plan Assessment/Plan A: R BKA stump infection DM type 2 Acute renal failure/ CKD Anemia HPN P: continue Vancomycin & Zosyn will f/u MRI & wound culture Subjective ROS Limited/Unobtainable: No Constitutional: Reports: no symptoms Respiratory: Reports: no symptoms Cardiovascular: Reports: no symptoms Gastrointestinal/Abdominal: Reports: no symptoms Genitourinary: Reports: no symptoms Musculoskeletal: Reports: pain, other - in legs Allergies: Coded Allergies: No Known Allergies (Unverified , 04/25/17) Objective Vital Signs Last 24 Hour Vital Signs Date Time Temp Pulse Resp B/P (MAP) Pulse Ox O2 Delivery O2 Flow Rate FiO2 06/01/17 08:26 68 157/84 06/01/17 08:24 68 157/84 06/01/17 08:00 56 18 Room Air 06/01/17 08:00 96.6 68 18 157/84 98 Room Air 06/01/17 07:58 Room Air 21 06/01/17 07:58 98 Room Air 21 06/01/17 04:00 60 06/01/17 04:00 97.2 60 18 151/73 98 Room Air 06/01/17 01:18 Room Air 21 06/01/17 01:18 99 Room Air 21 06/01/17 00:00 97.3 67 18 129/79 100 Room Air 06/01/17 00:00 64 05/31/17 21:36 68 151/84 05/31/17 20:00 97.7 64 18 151/84 Room Air 05/31/17 20:00 68 05/31/17 16:51 97.5 59 18 144/69 96 Room Air 05/31/17 16:00 60 05/31/17 12:00 57 05/31/17 12:00 97.3 58 18 167/89 100 Room Air 05/31/17 11:17 60 167/89 Height (Feet): 6 Height (Inches): 2.00 Weight (Pounds): 112 General Appearance: no acute distress, cachetic HEENT: mucous membranes moist Respiratory/Chest: lungs clear Cardiovascular: normal rate Abdomen: soft, non tender Extremities: no edema, other - R BKA, Ulcer in R leg stump Neurologic/Psychiatric: alert, oriented x 3, responsive Microbiology Date/Time Source Procedure Growth Status 05/30/17 19:50 Blood Blood Culture - Preliminary NO GROWTH AFTER 24 HOURS Resulted 05/30/17 19:50 Blood Blood Culture - Preliminary NO GROWTH AFTER 24 HOURS Resulted 05/30/17 21:45 Leg Right Gram Stain - Final Resulted 05/30/17 21:45 Wound Culture - Preliminary Gram Negative Bacillus 1 Gram Negative Bacillus 2 Resulted Laboratory Tests Test 05/31/17 11:40 05/31/17 12:10 06/01/17 06:41 06/01/17 07:51 Sodium Level 130 mEQ/L (135-145) L 137 mEQ/L (135-145) Potassium Level 5.1 mEQ/L (3.4-4.9) H 3.8 mEQ/L (3.4-4.9) Chloride Level 93 mEQ/L (98-107) L 101 mEQ/L (98-107) Carbon Dioxide Level 25 mEQ/L (20-30) 25 mEQ/L (20-30) Anion Gap 12 (5-15) 11 (5-15) Blood Urea Nitrogen 53 mg/dL (7-23) H 43 mg/dL (7-23) H Creatinine 2.1 mg/dL (0.7-1.2) H 2.1 mg/dL (0.7-1.2) H Estimat Glomerular Filtration Rate 38.5 mL/min (>60) 38.5 mL/min (>60) Glucose Level 500 mg/dL (74-106) H 54 mg/dL (74-106) #L Calcium Level 9.2 mg/dL (8.6-10.2) 8.6 mg/dL (8.6-10.2) Urine Color Pale yellow Urine Appearance Slightly cloudy Urine pH 6 (4.5-8.0) Urine Specific [place] 1.010 (1.005-1.035) Urine Protein 3+ (NEGATIVE) H Urine Glucose (UA) 4+ (NEGATIVE) H Urine Ketones Negative (NEGATIVE) Urine Occult Blood 2+ (NEGATIVE) H Urine Nitrite Positive (NEGATIVE) H Urine Bilirubin Negative (NEGATIVE) Urine Urobilinogen Normal MG/DL (0.0-1.0) Urine Leukocyte Esterase 3+ (NEGATIVE) H Urine RBC 5-10 /HPF (0 - 0) H Urine WBC 30-40 /HPF (0 - 0) H Urine Squamous Epithelial Cells Few /LPF (NONE/OCC) Urine Bacteria Moderate /HPF (NONE) H Urine Random Sodium 46 mmol/L White Blood Count 7.8 K/UL (4.8-10.8) Red Blood Count 2.84 M/UL (4.70-6.10) L Hemoglobin 8.3 G/DL (14.2-18.0) L Hematocrit 25.6 % (42.0-52.0) L Mean Corpuscular Volume 90 FL (80-99) Mean Corpuscular Hemoglobin 29.2 PG (27.0-31.0) Mean Corpuscular Hemoglobin Concent 32.2 G/DL (32.0-36.0) Red Cell Distribution Width 14.6 % (11.6-14.8) Platelet Count 344 K/UL (150-450) Mean Platelet Volume 7.0 FL (6.5-10.1) Neutrophils (%) (Auto) 65.4 % (45.0-75.0) Lymphocytes (%) (Auto) 22.2 % (20.0-45.0) Monocytes (%) (Auto) 9.5 % (1.0-10.0) Eosinophils (%) (Auto) 2.3 % (0.0-3.0) Basophils (%) (Auto) 0.5 % (0.0-2.0) Random Vancomycin Level 9.0 ug/mL Phosphorus Level 3.3 mg/dL (2.5-4.8) Magnesium Level 2.1 mg/dL (1.7-2.5) Ferritin 407 ng/mL (10-230) H Total Bilirubin 0.2 mg/dL (0.0-1.2) Direct Bilirubin 0.1 mg/dL (0.1-0.3) Aspartate Amino Transf (AST/SGOT) 9 U/L (5-40) Alanine Aminotransferase (ALT/SGPT) 6 U/L (3-41) Alkaline Phosphatase 108 U/L (40-129) Total Protein 5.7 g/dL (6.6-8.7) L Albumin 3.0 g/dL (3.5-5.2) L Current Medications Medications (Trade) Dose Ordered Sig/Dragan Route PRN Reason Start Time Stop Time Status Last Admin Dose Admin Acetaminophen (Tylenol) 650 mg Q4H PRN ORAL fever 05/30/17 22:00 06/29/17 21:59 Albuterol/ Ipratropium (DuoNeb 0.5-3(2.5)mg/3ml) 3 ml EVERY 4 HOURS PRN HHN Shortness of Breath 05/30/17 22:00 06/04/17 21:59 Atorvastatin Calcium (Lipitor) 80 mg BEDTIME ORAL 05/31/17 21:00 06/30/17 20:59 05/31/17 21:36 Carvedilol (Coreg) 6.25 mg EVERY 12 HOURS ORAL 05/31/17 21:00 06/30/17 20:59 06/01/17 08:24 Clonidine HCl (Catapres) 0.1 mg EVERY 4 HOURS PRN ORAL sbp more than 160 05/30/17 22:00 06/29/17 21:59 05/31/17 04:54 Dextrose (Dextrose 50%) STAT PRN IV Hypoglycemia 06/01/17 07:45 07/01/17 07:44 Gabapentin (Neurontin) 300 mg BEDTIME ORAL 05/31/17 21:00 06/30/17 20:59 05/31/17 21:36 Heparin Sodium (Porcine) (Heparin 5000 units/ml) 5,000 units EVERY 12 HOURS SUBQ 05/31/17 09:00 06/30/17 08:59 06/01/17 08:27 Insulin Aspart (NovoLOG) BEFORE MEALS AND HS SUBQ 05/31/17 11:30 06/30/17 11:29 05/31/17 21:40 Insulin Aspart (NovoLOG) 6 units NOVOTIAC SUBQ 06/01/17 11:50 07/01/17 11:49 Insulin Detemir (Levemir) 12 units BEDTIME SUBQ 06/01/17 21:00 07/01/17 20:59 Lansoprazole (Prevacid) 30 mg DAILY ORAL 05/31/17 09:45 06/30/17 09:44 06/01/17 08:25 Morphine Sulfate (Morphine Sulfate) 2 mg EVERY 4 HOURS PRN IVP severe pain 7-10 05/30/17 22:00 06/06/17 21:59 06/01/17 06:49 Nifedipine (Procardia XL) 60 mg DAILY ORAL 05/31/17 09:45 06/30/17 09:44 06/01/17 08:26 Nitroglycerin (Ntg) 0.4 mg Q5M X 3 DOSES PRN SL Prn Chest Pain 05/30/17 22:00 06/29/17 21:59 Ondansetron HCl (Zofran) 4 mg Q6H PRN IVP Nausea & Vomiting 05/30/17 22:00 06/29/17 21:59 05/31/17 00:00 Piperacillin Sod/ Tazobactam Sod 3.375 gm/Sodium Chloride 110 ml @ 27.5 mls/hr Q8H IVPB 05/31/17 04:00 06/07/17 03:59 06/01/17 04:12 Polyethylene Glycol (Miralax) 17 gm HSPRN PRN ORAL Constipation 05/30/17 22:00 06/29/17 21:59 06/01/17 08:24 Sodium Chloride 1,000 ml @ 100 mls/hr Q10H IVLG 05/31/17 01:00 06/30/17 00:59 06/01/17 06:44 Tamsulosin HCl (Flomax) 0.4 mg Q12HR ORAL 05/31/17 21:00 06/30/17 20:59 06/01/17 08:25 Temazepam (Restoril) 15 mg HSPRN PRN ORAL Insomnia 05/30/17 22:00 06/06/17 21:59 Vancomycin HCl (Vanco rx to dose) 1 ea DAILY PRN MISC Per rx protocol 05/30/17 22:00 06/29/17 21:59 MAIA TEMPLE Jun 01, 2017 09:40
--- NOTE | 2017-06-01 10:00 | Diagnostic Imaging Report ---
Indication: Abnormal labs Comparison: None Findings: Ultrasound evaluation of the kidneys and urinary bladder was performed. The left kidney measures 10.8 cm in length. Left kidney is normal in size, shape and echogenic texture. No hydronephrosis. No renal cortical thinning. There is a 4 cm cyst seen in these superior pole the left kidney. Right kidney measures 10.5 cm in length. Mild hydronephrosis is noted. No renal cortical thinning. No perinephric fluid collections present. Urinary bladder is distended. Layering debris is noted within the urinary bladder. Patient refused to void. Impression: Mild right hydronephrosis. Left kidney is normal. No left hydronephrosis. Left renal cyst is noted. Distended urinary bladder with wall thickening. There is layering debris within the urinary bladder. Cystitis cannot be excluded. Recommend correlation with urinalysis.
[2017-06-01] MEDS ORDERED: Vancomycin 1gm/D5W 275ml IVPB ONE ×2 (12:00)
--- NOTE | 2017-06-01 12:12 | Pulmonology Progress Note ---
Assessment/Plan Problems: (1) Syncope (2) Sepsis (3) Right BKA infection (4) HTN (hypertension) (5) Diabetes mellitus (6) Renal failure (7) BPH (benign prostatic hyperplasia) Assessment/Plan iv fluids iv abx renal evalauation Echo shoed previously 55% EF f/y labs avoid nephrotoxic sliding scale MRI fo stump ordered to rule out osteomyelitis. Subjective ROS Limited/Unobtainable: No Constitutional: Reports: no symptoms HEENT: Repors: no symptoms Respiratory: Reports: no symptoms Allergies: Coded Allergies: No Known Allergies (Unverified , 04/25/17) Objective Last 24 Hour Vital Signs Date Time Temp Pulse Resp B/P (MAP) Pulse Ox O2 Delivery O2 Flow Rate FiO2 06/01/17 08:26 68 157/84 06/01/17 08:24 68 157/84 06/01/17 08:00 56 18 Room Air 06/01/17 08:00 96.6 68 18 157/84 98 Room Air 06/01/17 08:00 71 06/01/17 07:58 Room Air 21 06/01/17 07:58 98 Room Air 21 06/01/17 04:00 60 06/01/17 04:00 97.2 60 18 151/73 98 Room Air 06/01/17 01:18 Room Air 21 06/01/17 01:18 99 Room Air 21 06/01/17 00:00 97.3 67 18 129/79 100 Room Air 06/01/17 00:00 64 05/31/17 21:36 68 151/84 05/31/17 20:00 97.7 64 18 151/84 Room Air 05/31/17 20:00 68 05/31/17 16:51 97.5 59 18 144/69 96 Room Air 05/31/17 16:00 60 General Appearance: cachetic HEENT: PERRL Respiratory/Chest: chest wall non-tender, lungs clear, chest wall tender Cardiovascular: normal peripheral pulses, normal rate Abdomen: normal bowel sounds, soft, non tender Genitourinary: normal external genitalia Extremities: no clubbing Skin: no rash Microbiology Date/Time Source Procedure Growth Status 05/30/17 19:50 Blood Blood Culture - Preliminary NO GROWTH AFTER 24 HOURS Resulted 05/30/17 19:50 Blood Blood Culture - Preliminary NO GROWTH AFTER 24 HOURS Resulted 05/31/17 12:10 Urine,Clean Catch Urine Culture - Preliminary Gram Negative Bacillus 1 Resulted 05/30/17 21:45 Leg Right Gram Stain - Final Resulted 05/30/17 21:45 Wound Culture - Preliminary Gram Negative Bacillus 1 Gram Negative Bacillus 2 Resulted Laboratory Tests 06/01/17 06:41: White Blood Count 7.8, Red Blood Count 2.84L, Hemoglobin 8.3L, Hematocrit 25.6L , Mean Corpuscular Volume 90, Mean Corpuscular Hemoglobin 29.2, Mean Corpuscular Hemoglobin Concent 32.2, Red Cell Distribution Width 14.6, Platelet Count 344, Mean Platelet Volume 7.0, Neutrophils (%) (Auto) 65.4, Lymphocytes (% ) (Auto) 22.2, Monocytes (%) (Auto) 9.5, Eosinophils (%) (Auto) 2.3, Basophils ( %) (Auto) 0.5, Sodium Level 137, Potassium Level 3.8, Chloride Level 101, Carbon Dioxide Level 25, Anion Gap 11, Blood Urea Nitrogen 43H, Creatinine 2.1H , Estimat Glomerular Filtration Rate 38.5, Glucose Level 54#L, Calcium Level 8.6 , Random Vancomycin Level 9.0 06/01/17 07:51: Phosphorus Level 3.3, Magnesium Level 2.1, Ferritin 407H, Total Bilirubin 0.2, Direct Bilirubin 0.1, Aspartate Amino Transf (AST/SGOT) 9, Alanine Aminotransferase (ALT/SGPT) 6, Alkaline Phosphatase 108, Total Protein 5.7L, Albumin 3.0L Current Medications Medications (Trade) Dose Ordered Sig/Dragan Route PRN Reason Start Time Stop Time Status Last Admin Dose Admin Acetaminophen (Tylenol) 650 mg Q4H PRN ORAL fever 05/30/17 22:00 06/29/17 21:59 Albuterol/ Ipratropium (DuoNeb 0.5-3(2.5)mg/3ml) 3 ml EVERY 4 HOURS PRN HHN Shortness of Breath 05/30/17 22:00 06/04/17 21:59 Atorvastatin Calcium (Lipitor) 80 mg BEDTIME ORAL 05/31/17 21:00 06/30/17 20:59 05/31/17 21:36 Carvedilol (Coreg) 6.25 mg EVERY 12 HOURS ORAL 05/31/17 21:00 06/30/17 20:59 06/01/17 08:24 Clonidine HCl (Catapres) 0.1 mg EVERY 4 HOURS PRN ORAL sbp more than 160 05/30/17 22:00 06/29/17 21:59 05/31/17 04:54 Dextrose (Dextrose 50%) STAT PRN IV Hypoglycemia 06/01/17 07:45 07/01/17 07:44 Gabapentin (Neurontin) 300 mg BEDTIME ORAL 05/31/17 21:00 06/30/17 20:59 05/31/17 21:36 Heparin Sodium (Porcine) (Heparin 5000 units/ml) 5,000 units EVERY 12 HOURS SUBQ 05/31/17 09:00 06/30/17 08:59 06/01/17 08:27 Insulin Aspart (NovoLOG) BEFORE MEALS AND HS SUBQ 05/31/17 11:30 06/30/17 11:29 06/01/17 11:33 Insulin Aspart (NovoLOG) 6 units NOVOTIAC SUBQ 06/01/17 11:50 07/01/17 11:49 06/01/17 11:32 Insulin Detemir (Levemir) 12 units BEDTIME SUBQ 06/01/17 21:00 07/01/17 20:59 Lansoprazole (Prevacid) 30 mg DAILY ORAL 05/31/17 09:45 06/30/17 09:44 06/01/17 08:25 Morphine Sulfate (Morphine Sulfate) 2 mg EVERY 4 HOURS PRN IVP severe pain 7-10 05/30/17 22:00 06/06/17 21:59 06/01/17 11:37 Nifedipine (Procardia XL) 60 mg DAILY ORAL 05/31/17 09:45 06/30/17 09:44 06/01/17 08:26 Nitroglycerin (Ntg) 0.4 mg Q5M X 3 DOSES PRN SL Prn Chest Pain 05/30/17 22:00 06/29/17 21:59 Ondansetron HCl (Zofran) 4 mg Q6H PRN IVP Nausea & Vomiting 05/30/17 22:00 06/29/17 21:59 05/31/17 00:00 Piperacillin Sod/ Tazobactam Sod 3.375 gm/Sodium Chloride 110 ml @ 27.5 mls/hr Q8H IVPB 05/31/17 04:00 06/07/17 03:59 06/01/17 04:12 Polyethylene Glycol (Miralax) 17 gm HSPRN PRN ORAL Constipation 05/30/17 22:00 06/29/17 21:59 06/01/17 08:24 Sodium Chloride 1,000 ml @ 100 mls/hr Q10H IVLG 05/31/17 01:00 06/30/17 00:59 06/01/17 06:44 Tamsulosin HCl (Flomax) 0.4 mg Q12HR ORAL 05/31/17 21:00 06/30/17 20:59 06/01/17 08:25 Temazepam (Restoril) 15 mg HSPRN PRN ORAL Insomnia 05/30/17 22:00 06/06/17 21:59 Vancomycin HCl (Vanco rx to dose) 1 ea DAILY PRN MISC Per rx protocol 05/30/17 22:00 06/29/17 21:59 Vancomycin HCl 1 gm/Dextrose 275 ml @ 183.708 mls/hr ONCE ONCE IVPB 06/01/17 12:00 06/01/17 13:29 06/01/17 11:26 Vancomycin/Sodium Chloride 250 ml @ 167.007 mls/hr Q12H IVPB 06/02/17 00:00 06/07/17 00:00 BRIAN HERNANDEZ Jun 01, 2017 12:12
--- NOTE | 2017-06-01 12:51 | Internal Med Progress Note ---
Subjective Date of Service: Jun 01, 2017 Physician Name Felton Smalls Attending Physician Bruno Serrato MD Current Medications Medications (Trade) Dose Ordered Sig/Dragan Route PRN Reason Start Time Stop Time Status Last Admin Dose Admin Acetaminophen (Tylenol) 650 mg Q4H PRN ORAL fever 05/30/17 22:00 06/29/17 21:59 Albuterol/ Ipratropium (DuoNeb 0.5-3(2.5)mg/3ml) 3 ml EVERY 4 HOURS PRN HHN Shortness of Breath 05/30/17 22:00 06/04/17 21:59 Atorvastatin Calcium (Lipitor) 80 mg BEDTIME ORAL 05/31/17 21:00 06/30/17 20:59 05/31/17 21:36 Clonidine HCl (Catapres) 0.1 mg EVERY 4 HOURS PRN ORAL sbp more than 160 05/30/17 22:00 06/29/17 21:59 05/31/17 04:54 Dextrose (Dextrose 50%) STAT PRN IV Hypoglycemia 06/01/17 07:45 07/01/17 07:44 Gabapentin (Neurontin) 300 mg BEDTIME ORAL 05/31/17 21:00 06/30/17 20:59 05/31/17 21:36 Heparin Sodium (Porcine) (Heparin 5000 units/ml) 5,000 units EVERY 12 HOURS SUBQ 05/31/17 09:00 06/30/17 08:59 06/01/17 08:27 Insulin Aspart (NovoLOG) BEFORE MEALS AND HS SUBQ 05/31/17 11:30 06/30/17 11:29 06/01/17 11:33 Insulin Aspart (NovoLOG) 6 units NOVOTIAC SUBQ 06/01/17 11:50 07/01/17 11:49 06/01/17 11:32 Insulin Detemir (Levemir) 12 units BEDTIME SUBQ 06/01/17 21:00 07/01/17 20:59 Lansoprazole (Prevacid) 30 mg DAILY ORAL 05/31/17 09:45 06/30/17 09:44 06/01/17 08:25 Morphine Sulfate (Morphine Sulfate) 2 mg EVERY 4 HOURS PRN IVP severe pain 7-10 05/30/17 22:00 06/06/17 21:59 06/01/17 11:37 Nifedipine (Procardia XL) 60 mg DAILY ORAL 05/31/17 09:45 06/30/17 09:44 06/01/17 08:26 Nitroglycerin (Ntg) 0.4 mg Q5M X 3 DOSES PRN SL Prn Chest Pain 05/30/17 22:00 06/29/17 21:59 Ondansetron HCl (Zofran) 4 mg Q6H PRN IVP Nausea & Vomiting 05/30/17 22:00 06/29/17 21:59 05/31/17 00:00 Piperacillin Sod/ Tazobactam Sod 3.375 gm/Sodium Chloride 110 ml @ 27.5 mls/hr Q8H IVPB 05/31/17 04:00 06/07/17 03:59 06/01/17 04:12 Polyethylene Glycol (Miralax) 17 gm HSPRN PRN ORAL Constipation 05/30/17 22:00 06/29/17 21:59 06/01/17 08:24 Sodium Chloride 1,000 ml @ 100 mls/hr Q10H IVLG 05/31/17 01:00 06/30/17 00:59 06/01/17 06:44 Tamsulosin HCl (Flomax) 0.4 mg Q12HR ORAL 05/31/17 21:00 06/30/17 20:59 06/01/17 08:25 Temazepam (Restoril) 15 mg HSPRN PRN ORAL Insomnia 05/30/17 22:00 06/06/17 21:59 Vancomycin HCl (Vanco rx to dose) 1 ea DAILY PRN MISC Per rx protocol 05/30/17 22:00 06/29/17 21:59 Vancomycin HCl 1 gm/Dextrose 275 ml @ 183.708 mls/hr ONCE ONCE IVPB 06/01/17 12:00 06/01/17 13:29 06/01/17 11:26 Vancomycin/Sodium Chloride 250 ml @ 167.007 mls/hr Q12H IVPB 06/02/17 00:00 06/07/17 00:00 Allergies: Coded Allergies: No Known Allergies (Unverified , 04/25/17) ROS Limited/Unobtainable: No Constitutional: Reports: no symptoms HEENT: Reports: no symptoms Cardiovascular: Reports: no symptoms Respiratory: Reports: no symptoms Gastrointestinal/Abdominal: Reports: no symptoms Genitourinary: Reports: no symptoms Neurologic/Psychiatric: Reports: no symptoms Subjective 66 YO M admitted with uncontroled diabetes and BKA pain. Cover for Int Med-Dr Serrato. Objective Last Vital Signs Date Time Temp Pulse Resp B/P (MAP) Pulse Ox O2 Delivery O2 Flow Rate FiO2 06/01/17 12:00 97.1 71 21 147/73 98 06/01/17 08:00 Room Air 06/01/17 07:58 21 General Appearance: alert, mild distress, thin EENT: PERRL/EOMI, normal ENT inspection Neck: non-tender, normal alignment, supple Cardiovascular: normal peripheral pulses, normal rate, regular rhythm, no gallop/murmur, no JVD Respiratory/Chest: chest wall non-tender, lungs clear, normal breath sounds, no respiratory distress, no accessory muscle use Abdomen: normal bowel sounds, non tender, soft, no organomegaly, no mass Extremities: other - right BKA Neurologic: [employer] II-XII grossly normal, no motor/sensory deficits Skin: normal pigmentation, warm/dry Laboratory Tests Test 06/01/17 06:41 06/01/17 07:51 White Blood Count 7.8 K/UL (4.8-10.8) Red Blood Count 2.84 M/UL (4.70-6.10) L Hemoglobin 8.3 G/DL (14.2-18.0) L Hematocrit 25.6 % (42.0-52.0) L Mean Corpuscular Volume 90 FL (80-99) Mean Corpuscular Hemoglobin 29.2 PG (27.0-31.0) Mean Corpuscular Hemoglobin Concent 32.2 G/DL (32.0-36.0) Red Cell Distribution Width 14.6 % (11.6-14.8) Platelet Count 344 K/UL (150-450) Mean Platelet Volume 7.0 FL (6.5-10.1) Neutrophils (%) (Auto) 65.4 % (45.0-75.0) Lymphocytes (%) (Auto) 22.2 % (20.0-45.0) Monocytes (%) (Auto) 9.5 % (1.0-10.0) Eosinophils (%) (Auto) 2.3 % (0.0-3.0) Basophils (%) (Auto) 0.5 % (0.0-2.0) Sodium Level 137 mEQ/L (135-145) Potassium Level 3.8 mEQ/L (3.4-4.9) Chloride Level 101 mEQ/L (98-107) Carbon Dioxide Level 25 mEQ/L (20-30) Anion Gap 11 (5-15) Blood Urea Nitrogen 43 mg/dL (7-23) H Creatinine 2.1 mg/dL (0.7-1.2) H Estimat Glomerular Filtration Rate 38.5 mL/min (>60) Glucose Level 54 mg/dL (74-106) #L Calcium Level 8.6 mg/dL (8.6-10.2) Random Vancomycin Level 9.0 ug/mL Phosphorus Level 3.3 mg/dL (2.5-4.8) Magnesium Level 2.1 mg/dL (1.7-2.5) Ferritin 407 ng/mL (10-230) H Total Bilirubin 0.2 mg/dL (0.0-1.2) Direct Bilirubin 0.1 mg/dL (0.1-0.3) Aspartate Amino Transf (AST/SGOT) 9 U/L (5-40) Alanine Aminotransferase (ALT/SGPT) 6 U/L (3-41) Alkaline Phosphatase 108 U/L (40-129) Total Protein 5.7 g/dL (6.6-8.7) L Albumin 3.0 g/dL (3.5-5.2) L Microbiology Date/Time Source Procedure Growth Status 05/30/17 19:50 Blood Blood Culture - Preliminary NO GROWTH AFTER 24 HOURS Resulted 05/30/17 19:50 Blood Blood Culture - Preliminary NO GROWTH AFTER 24 HOURS Resulted 05/31/17 12:10 Urine,Clean Catch Urine Culture - Preliminary Gram Negative Bacillus 1 Resulted 05/30/17 21:45 Leg Right Gram Stain - Final Resulted 05/30/17 21:45 Wound Culture - Preliminary Gram Negative Bacillus 1 Gram Negative Bacillus 2 Resulted Intake and Output 06/01/17 06/02/17 19:00 07:00 Intake Total 683.708 ml Balance 683.708 ml IV Total 683.708 ml Assessment/Plan Problem List: (1) Atrial fibrillation Assessment & Plan: see cardiology note. (2) Diabetes mellitus type II, uncontrolled Assessment & Plan: await Endocrinology consult. (3) Right BKA infection Assessment & Plan: Continue Zosyn. Wound care. (4) Syncope (5) HTN (hypertension) Assessment & Plan: Continue Procardia (6) Hypercholesteremia Assessment & Plan: continue lipitor Status: progressing FELTON SMALLS Jun 01, 2017 12:51
--- NOTE | 2017-06-01 13:11 | General Progress Note ---
Assessment/Plan Status: stable Assessment/Plan admitted for syncope Has DM OOC h/o A fib acute renal failure on CRI previous Cr 1.9 now 2.1 h/o bladder outlet obstruction) per AILYN in past Also due to DM and HTN, has 3+ Proteinuria anemia DM HTN R BKA stump wound BLE pain severe protein calorie malnutrition Urinary retention due to bladder out let Obstruction bladder outlet obstruction Plan: hydrate- BS control Optimize BS and BP status Avoid nephrotoxics Flomax BID Anemia crawford Subjective ROS Limited/Unobtainable: No Constitutional: Reports: malaise Allergies: Coded Allergies: No Known Allergies (Unverified , 04/25/17) Objective Last 24 Hour Vital Signs Date Time Temp Pulse Resp B/P (MAP) Pulse Ox O2 Delivery O2 Flow Rate FiO2 06/01/17 12:00 97.1 71 21 147/73 98 06/01/17 08:26 68 157/84 06/01/17 08:24 68 157/84 06/01/17 08:00 56 18 Room Air 06/01/17 08:00 96.6 68 18 157/84 98 Room Air 06/01/17 08:00 71 06/01/17 07:58 Room Air 21 06/01/17 07:58 98 Room Air 21 06/01/17 04:00 60 06/01/17 04:00 97.2 60 18 151/73 98 Room Air 06/01/17 01:18 Room Air 21 06/01/17 01:18 99 Room Air 21 06/01/17 00:00 97.3 67 18 129/79 100 Room Air 06/01/17 00:00 64 05/31/17 21:36 68 151/84 05/31/17 20:00 97.7 64 18 151/84 Room Air 05/31/17 20:00 68 05/31/17 16:51 97.5 59 18 144/69 96 Room Air 05/31/17 16:00 60 Intake and Output 06/01/17 06/02/17 19:00 07:00 Intake Total 683.708 ml Balance 683.708 ml IV Total 683.708 ml Laboratory Tests 06/01/17 06:41: White Blood Count 7.8, Red Blood Count 2.84L, Hemoglobin 8.3L, Hematocrit 25.6L , Mean Corpuscular Volume 90, Mean Corpuscular Hemoglobin 29.2, Mean Corpuscular Hemoglobin Concent 32.2, Red Cell Distribution Width 14.6, Platelet Count 344, Mean Platelet Volume 7.0, Neutrophils (%) (Auto) 65.4, Lymphocytes (% ) (Auto) 22.2, Monocytes (%) (Auto) 9.5, Eosinophils (%) (Auto) 2.3, Basophils ( %) (Auto) 0.5, Sodium Level 137, Potassium Level 3.8, Chloride Level 101, Carbon Dioxide Level 25, Anion Gap 11, Blood Urea Nitrogen 43H, Creatinine 2.1H , Estimat Glomerular Filtration Rate 38.5, Glucose Level 54#L, Calcium Level 8.6 , Random Vancomycin Level 9.0 06/01/17 07:51: Phosphorus Level 3.3, Magnesium Level 2.1, Ferritin 407H, Total Bilirubin 0.2, Direct Bilirubin 0.1, Aspartate Amino Transf (AST/SGOT) 9, Alanine Aminotransferase (ALT/SGPT) 6, Alkaline Phosphatase 108, Total Protein 5.7L, Albumin 3.0L Height (Feet): 6 Height (Inches): 2.00 Weight (Pounds): 112 General Appearance: no apparent distress, lethargic Cardiovascular: normal rate Respiratory/Chest: decreased breath sounds Abdomen: distended TYE TINAJERO Jun 01, 2017 13:11
[2017-06-01] MEDS: Atorvastatin 80mg tab ORAL SCH (20:30)
[2017-06-01] MEDS ORDERED: Levemir Flexpen SUBQ SCH (21:00)
[2017-06-02] MEDS ORDERED: Vancomycin 750mg/NS 250ml 250 ML IVPB SCH
[2017-06-02] MEDS: Morphine Sulfate 2mg/ml Inj IVP PRN ×5 (02:38→22:15)
[2017-06-02 04:00] VITALS: BP 141/69
[2017-06-02] MEDS: Piperacillin/Tazobactam 3.375 GM in NS 110 ML IVPB SCH ×3 (04:12→20:00)
[2017-06-02] MEDS: NovoLOG Insulin Flexpen SUBQ SCH ×8 (06:38→21:00)
--- NOTE | 2017-06-02 07:57 | General Progress Note ---
Assessment/Plan Problem List: (1) Uncontrolled diabetes mellitus ICD Codes: E11.65 - Type 2 diabetes mellitus with hyperglycemia SNOMED: 945006672, 32411164 (2) HTN (hypertension) ICD Codes: I10 - Essential (primary) hypertension SNOMED: 48642380 (3) BPH (benign prostatic hyperplasia) ICD Codes: N40.0 - Benign prostatic hyperplasia without lower urinary tract symptoms SNOMED: 356325020, 874691413 (4) Right BKA infection ICD Codes: T87.43 - Infection of amputation stump, right lower extremity SNOMED: 854873485 (5) Renal failure ICD Codes: N19 - Unspecified kidney failure SNOMED: 55080577 Assessment/Plan continue to keep off Metformin due to NOHELIA increase Levemir to 18 units qhs increase Novolog to 8 units ac tid + SSI Subjective Allergies: Coded Allergies: No Known Allergies (Unverified , 04/25/17) All Systems: reviewed and negative except above Subjective events noted Objective Last 24 Hour Vital Signs Date Time Temp Pulse Resp B/P (MAP) Pulse Ox O2 Delivery O2 Flow Rate FiO2 06/02/17 04:00 69 06/02/17 04:00 98.1 69 20 141/69 100 Room Air 06/02/17 00:00 77 06/01/17 23:48 98.1 80 20 123/66 94 Room Air 06/01/17 21:10 Room Air 21 06/01/17 21:10 98 Room Air 21 06/01/17 21:10 76 16 Room Air 21 06/01/17 20:00 98.2 75 20 149/78 97 Room Air 06/01/17 20:00 72 06/01/17 16:00 77 06/01/17 16:00 97.2 73 21 103/55 94 Room Air 06/01/17 12:00 97.1 71 21 147/73 98 06/01/17 12:00 71 06/01/17 08:26 68 157/84 06/01/17 08:24 68 157/84 06/01/17 08:00 56 18 Room Air 06/01/17 08:00 96.6 68 18 157/84 98 Room Air 06/01/17 08:00 71 06/01/17 07:58 Room Air 21 06/01/17 07:58 98 Room Air 21 Laboratory Tests 06/02/17 06:55: White Blood Count [Pending], Red Blood Count [Pending], Hemoglobin [Pending], Hematocrit [Pending], Mean Corpuscular Volume [Pending], Mean Corpuscular Hemoglobin [Pending], Mean Corpuscular Hemoglobin Concent [Pending], Red Cell Distribution Width [Pending], Platelet Count [Pending], Mean Platelet Volume [ Pending], Neutrophils (%) (Auto) [Pending], Lymphocytes (%) (Auto) [Pending], Monocytes (%) (Auto) [Pending], Eosinophils (%) (Auto) [Pending], Basophils (%) (Auto) [Pending], Prothrombin Time [Pending], Prothromb Time International Ratio [Pending], Activated Partial Thromboplast Time [Pending], Sodium Level [ Pending], Potassium Level [Pending], Chloride Level [Pending], Carbon Dioxide Level [Pending], Blood Urea Nitrogen [Pending], Creatinine [Pending], Estimat Glomerular Filtration Rate [Pending], Glucose Level [Pending], Calcium Level [ Pending], Phosphorus Level [Pending], Magnesium Level [Pending], Total Bilirubin [Pending], Aspartate Amino Transf (AST/SGOT) [Pending], Alanine Aminotransferase (ALT/SGPT) [Pending], Alkaline Phosphatase [Pending], Total Protein [Pending], Albumin [Pending], Globulin [Pending] Height (Feet): 6 Height (Inches): 2.00 Weight (Pounds): 112 General Appearance: no apparent distress EENT: pale conjunctivae Neck: normal alignment Cardiovascular: normal rate Respiratory/Chest: lungs clear Abdomen: normal bowel sounds Extremities: other - right BKA Objective Item Value Date Time Bedside Blood Glucose 278 mg/dl H 06/02/17 0639 Bedside Blood Glucose 273 mg/dl H 06/01/17 2100 Bedside Blood Glucose 158 mg/dl H 06/01/17 1637 Bedside Blood Glucose 197 mg/dl H 06/01/17 1133 Bedside Blood Glucose 68 mg/dl L 06/01/17 0630 CHRISTIAN MARIN Jun 02, 2017 07:57
[2017-06-02 07:58] LABS: BASOPHILS % (AUTO) 0.6 % (0.0-2.0); LYMPHOCYTES % (AUTO) 10.2 % (20.0-45.0); MEAN CORPUSCULAR HEMOGLOBIN 29.6 PG (27.0-31.0); MEAN CORPUSCULAR VOLUME 89 FL (80-99); MEAN PLATELET VOLUME 7.7 FL (6.5-10.1); NEUTROPHILS % (AUTO) 81.2 % (45.0-75.0); PLATELET COUNT 305 K/UL (150-450); RED BLOOD COUNT 2.93 M/UL (4.70-6.10); RED CELL DISTRIBUTION WIDTH 14.8 % (11.6-14.8); WHITE BLOOD COUNT 11.5 K/UL (4.8-10.8)
[2017-06-02 07:59] LABS: PROTHROMBIN TIME 10.7 SEC (9.30-11.50)
[2017-06-02 08:00] VITALS: BP 139/71
[2017-06-02 08:11] LABS: ALBUMIN/GLOBULIN RATIO 0.8 (1.0-2.7); CALCIUM 8.2 mg/dL (8.6-10.2); CREATININE 2.1 mg/dL (0.7-1.2); GLOMERULAR FILTRATION RATE 38.5 mL/min (>60); POTASSIUM 4.1 mEQ/L (3.4-4.9); TOTAL PROTEIN 6.1 g/dL (6.6-8.7)
--- NOTE | 2017-06-02 08:32 | Consultation ---
DATE OF CONSULTATION: 06/01/2017 ENDOCRINOLOGY CONSULTATION CONSULTING PHYSICIAN: Jeremy Jensen M.D. REFERRING PHYSICIAN: Felton Medellin M.D. REASON FOR CONSULTATION: Diabetes management. History Of Present Illness: The patient is a 66-year-old pleasant male with history of right below knee amputation and diabetes, who presented to the hospital with right lower extremity pain and discharge. The patient was treated with oral antibiotics as an outpatient. Since the admission, the glucose was out of control. Endocrinology was consulted. Last time, the glucose was 300. He received Levemir 14 units as well as the NovoLog coverage. This morning, blood sugar was 68. During the day, blood sugar was running normal at 300. PAST MEDICAL HISTORY: 1. Diabetes. 2. Hypertension. 3. Dyslipidemia. 4. Atrial fibrillation. PAST SURGICAL HISTORY: Right below knee amputation. MEDICATIONS: Medication as an outpatient reviewed and reconciled. ALLERGY TO MEDICATIONS: None. Social History: The patient is a , lives with the current girlfriend. Smokes one pack a day. No alcohol or drug use. Review Of Systems: A 12-point review of systems was performed, pertinent positives and negatives are as mentioned in the history of present illness. PHYSICAL EXAMINATION: GENERAL: The patient is awake and alert. Vital Signs: Blood pressure is 180/80, pulse of 80, temperature 98.2, and respiratory rate of 18. HEENT: Pupils are equal and reactive to light. Sclerae are anicteric. NECK: No JVD. No thyromegaly. LUNGS: Clear. HEART: Regular rate and rhythm. ABDOMEN: Positive bowel sounds. EXTREMITIES: Right below knee amputation. Laboratory Data: WBC 7.6, hemoglobin 9.6, hematocrit 30, and platelets of 446,000. Sodium is 130, potassium 5.1, chloride 92, bicarbonate 25, BUN 53, creatinine 2.1, and glucose of 500. A1c 12.4. TSH 2.7. DIAGNOSES: 1. Diabetes out of control. 2. Acute kidney injury on chronic kidney disease. 3. Right below knee amputation. PLAN: 1. I concur with the discontinuation of metformin since the creatinine is over 2. 2. We will reduce the Levemir to 12 units at bedtime, but at the same time add NovoLog 6 units before each meal in order to improve both postprandial hypoglycemia and fasting hypoglycemia. 3. Sliding scale insulin with NovoLog have been ordered. Will check A1c. 4. We will follow the patient closely during the hospital stay for further management of diabetes. Thank you Dr. Medellin for the courtesy of this consultation. Jeremy Jensen M.D. DR: John JOB#: [id number] CC: [email or web address]
--- NOTE | 2017-06-02 08:32 | Consultation ---
DATE OF CONSULTATION: 06/01/2017 NOTE: POOR AUDIO QUALITY HEMATOLOGY/ONCOLOGY CONSULTATION CONSULTING PHYSICIAN: Dino Acosta M.D. REQUESTING PHYSICIAN: Bruno Serrato M.D. REASON FOR CONSULTATION: Evaluation of anemia and also elevated CEA. IDENTIFICATION DATA: Dear Dr. Serrato, The patient is a pleasant 66-year-old male with past medical history, which is significant for , diabetes mellitus, hyperlipidemia, atrial fibrillation, and hypertension, presents to [facility] with extremity pain of bilateral lower extremities with a history of right below-knee amputation. He reports that he has pain in that area. He was sent in to the ER and admitted for lower extremity pain as well as gait disorder. The patient in the past has a history of atrial fibrillation again . Currently, he is placed on antibiotics as well as heparin subcutaneous dosing. mild hydronephrosis was noted. The patient has severe tachypnea with . PAST MEDICAL HISTORY: As noted above. PAST SURGICAL HISTORY: Right below-knee amputation. Medications: Amlodipine, Lipitor, Coreg, finasteride, and gabapentin. ALLERGIES: No known drug allergies. Social History: The patient is a . Lives with a girlfriend. The patient admits to tobacco use one pack per day. The patient denies any alcohol use. Review Of Systems: Constitutional: No fevers, chills, or night sweats. Skin: No rashes, bumps, or itching. HEENT: No headache, hearing or vision changes. Breasts: No lumps, pain, or discharge. Pulmonary: No cough, sputum, or shortness of breath. Cardiovascular: No chest pain or palpitations. Gastrointestinal: No nausea, vomiting, or diarrhea. Genitourinary: No dysuria, frequency, or urgency. Musculoskeletal: No joint swelling, muscle pain, or trauma. PHYSICAL EXAMINATION: VITAL SIGNS: Reviewed. GENERAL: The patient is in no acute distress. PULMONARY: Decreased breath sounds. CARDIOVASCULAR: Regular rate. No S3 or S4. ABDOMEN: Soft, nontender, and nondistended. EXTREMITIES: There is 1+ edema. Laboratory Data: ESR 112. . Creatinine 1. INR 1. Hemoglobin . ASSESSMENT AND PLAN: 1. Anemia secondary to chronic disease. Anemia workup has been reviewed consistent with anemia of chronic disease. 2. Decreased hemoglobin and hematocrit. Rule out gastrointestinal bleed. Occult blood is negative. 3. Acute kidney injury, mild hydronephrosis with history of bladder outlet obstruction. Ultrasound . 4. Diabetes mellitus. Continue to better control diabetes mellitus. 5. Followup with nephrology team. 6. Right below-knee amputation infection and cellulitis. Continue to monitor as needed. MRSA has been ordered. 7. Hypertension. I appreciate the consultation. Dino Acosta M.D. DR: PERLA JOB#: [id number] CC:
[2017-06-02] MEDS: Tamsulosin 0.4mg cap ORAL SCH ×2 (08:38→21:00)
[2017-06-02] MEDS: Heparin 5000 units/ml inj SUBQ SCH (08:50)
[2017-06-02] MEDS ORDERED: NS 275ml ONE (10:13)
--- NOTE | 2017-06-02 10:25 | Internal Med Progress Note ---
Subjective Date of Service: Jun 02, 2017 Physician Name Felton Smalls Attending Physician Bruno Serrato MD Current Medications Medications (Trade) Dose Ordered Sig/Dragan Route PRN Reason Start Time Stop Time Status Last Admin Dose Admin Acetaminophen (Tylenol) 650 mg Q4H PRN ORAL fever 05/30/17 22:00 06/29/17 21:59 Albuterol/ Ipratropium (DuoNeb 0.5-3(2.5)mg/3ml) 3 ml EVERY 4 HOURS PRN HHN Shortness of Breath 05/30/17 22:00 06/04/17 21:59 Atorvastatin Calcium (Lipitor) 80 mg BEDTIME ORAL 05/31/17 21:00 06/30/17 20:59 06/01/17 20:30 Clonidine HCl (Catapres) 0.1 mg EVERY 4 HOURS PRN ORAL sbp more than 160 05/30/17 22:00 06/29/17 21:59 05/31/17 04:54 Dextrose (Dextrose 50%) STAT PRN IV Hypoglycemia 06/01/17 07:45 07/01/17 07:44 Gabapentin (Neurontin) 300 mg BEDTIME ORAL 05/31/17 21:00 06/30/17 20:59 06/01/17 20:30 Heparin Sodium (Porcine) (Heparin 5000 units/ml) 5,000 units EVERY 12 HOURS SUBQ 05/31/17 09:00 06/30/17 08:59 06/02/17 08:50 Insulin Aspart (NovoLOG) BEFORE MEALS AND HS SUBQ 05/31/17 11:30 06/30/17 11:29 06/02/17 06:38 Insulin Aspart (NovoLOG) 8 units NOVOTIAC SUBQ 06/02/17 11:50 07/02/17 11:49 Insulin Detemir (Levemir) 18 units BEDTIME SUBQ 06/02/17 21:00 07/02/17 20:59 Lansoprazole (Prevacid) 30 mg DAILY ORAL 05/31/17 09:45 06/30/17 09:44 06/02/17 08:47 Morphine Sulfate (Morphine Sulfate) 2 mg EVERY 4 HOURS PRN IVP severe pain 7-10 05/30/17 22:00 06/06/17 21:59 06/02/17 08:37 Nifedipine (Procardia XL) 60 mg DAILY ORAL 05/31/17 09:45 06/30/17 09:44 06/02/17 08:39 Nitroglycerin (Ntg) 0.4 mg Q5M X 3 DOSES PRN SL Prn Chest Pain 05/30/17 22:00 06/29/17 21:59 Ondansetron HCl (Zofran) 4 mg Q6H PRN IVP Nausea & Vomiting 05/30/17 22:00 06/29/17 21:59 06/01/17 20:40 Piperacillin Sod/ Tazobactam Sod 3.375 gm/Sodium Chloride 110 ml @ 27.5 mls/hr Q8H IVPB 05/31/17 04:00 06/07/17 03:59 06/02/17 04:12 Polyethylene Glycol (Miralax) 17 gm HSPRN PRN ORAL Constipation 05/30/17 22:00 06/29/17 21:59 06/01/17 08:24 Sodium Chloride 1,000 ml @ 100 mls/hr Q10H IVLG 05/31/17 01:00 06/30/17 00:59 06/02/17 03:12 Tamsulosin HCl (Flomax) 0.4 mg Q12HR ORAL 05/31/17 21:00 06/30/17 20:59 06/02/17 08:38 Temazepam (Restoril) 15 mg HSPRN PRN ORAL Insomnia 05/30/17 22:00 06/06/17 21:59 Vancomycin HCl (Vanco rx to dose) 1 ea DAILY PRN MISC Per rx protocol 05/30/17 22:00 06/29/17 21:59 Vancomycin/Sodium Chloride 250 ml @ 167.007 mls/hr Q12H IVPB 06/02/17 00:00 06/07/17 00:00 06/02/17 00:46 Allergies: Coded Allergies: No Known Allergies (Unverified , 04/25/17) ROS Limited/Unobtainable: No Constitutional: Reports: no symptoms HEENT: Reports: no symptoms Cardiovascular: Reports: no symptoms Respiratory: Reports: no symptoms Gastrointestinal/Abdominal: Reports: no symptoms Genitourinary: Reports: no symptoms Neurologic/Psychiatric: Reports: no symptoms Subjective 66 YO M admitted with uncontroled diabetes and BKA pain. Cover for Int Med-Dr Serrato. Objective Last Vital Signs Date Time Temp Pulse Resp B/P (MAP) Pulse Ox O2 Delivery O2 Flow Rate FiO2 06/02/17 08:39 86 106/58 06/02/17 08:00 98.0 19 97 Room Air 06/01/17 21:10 21 Laboratory Tests Test 06/02/17 06:55 White Blood Count 11.5 K/UL (4.8-10.8) H Red Blood Count 2.93 M/UL (4.70-6.10) L Hemoglobin 8.6 G/DL (14.2-18.0) L Hematocrit 26.2 % (42.0-52.0) L Mean Corpuscular Volume 89 FL (80-99) Mean Corpuscular Hemoglobin 29.6 PG (27.0-31.0) Mean Corpuscular Hemoglobin Concent 33.0 G/DL (32.0-36.0) Red Cell Distribution Width 14.8 % (11.6-14.8) Platelet Count 305 K/UL (150-450) Mean Platelet Volume 7.7 FL (6.5-10.1) Neutrophils (%) (Auto) 81.2 % (45.0-75.0) H Lymphocytes (%) (Auto) 10.2 % (20.0-45.0) L Monocytes (%) (Auto) 7.0 % (1.0-10.0) Eosinophils (%) (Auto) 1.0 % (0.0-3.0) Basophils (%) (Auto) 0.6 % (0.0-2.0) Prothrombin Time 10.7 SEC (9.30-11.50) Prothromb Time International Ratio 1.0 (0.9-1.1) Activated Partial Thromboplast Time 35 SEC (23-33) H Sodium Level 132 mEQ/L (135-145) L Potassium Level 4.1 mEQ/L (3.4-4.9) Chloride Level 97 mEQ/L (98-107) L Carbon Dioxide Level 22 mEQ/L (20-30) Anion Gap 13 (5-15) Blood Urea Nitrogen 36 mg/dL (7-23) H Creatinine 2.1 mg/dL (0.7-1.2) H Estimat Glomerular Filtration Rate 38.5 mL/min (>60) Glucose Level 248 mg/dL (74-106) #H Calcium Level 8.2 mg/dL (8.6-10.2) L Phosphorus Level 3.0 mg/dL (2.5-4.8) Magnesium Level 2.0 mg/dL (1.7-2.5) Total Bilirubin 0.4 mg/dL (0.0-1.2) Aspartate Amino Transf (AST/SGOT) 50 U/L (5-40) H Alanine Aminotransferase (ALT/SGPT) 36 U/L (3-41) Alkaline Phosphatase 152 U/L (40-129) H Total Protein 6.1 g/dL (6.6-8.7) L Albumin 2.8 g/dL (3.5-5.2) L Globulin 3.3 g/dL Albumin/Globulin Ratio 0.8 (1.0-2.7) L Microbiology Date/Time Source Procedure Growth Status 05/30/17 19:50 Blood Blood Culture - Preliminary NO GROWTH AFTER 48 HOURS Resulted 05/30/17 19:50 Blood Blood Culture - Preliminary NO GROWTH AFTER 48 HOURS Resulted 05/31/17 12:10 Urine,Clean Catch Urine Culture - Final Serratia Marcescens Complete 05/30/17 21:45 Leg Right Gram Stain - Final Resulted 05/30/17 21:45 Wound Culture - Preliminary Gram Negative Bacillus 1 Gram Negative Bacillus 2 Resulted Objective General Appearance: alert, mild distress, thin EENT: PERRL/EOMI, normal ENT inspection Neck: non-tender, normal alignment, supple Cardiovascular: normal peripheral pulses, normal rate, regular rhythm, no gallop/murmur, no JVD Respiratory/Chest: chest wall non-tender, lungs clear, normal breath sounds, no respiratory distress, no accessory muscle use Abdomen: normal bowel sounds, non tender, soft, no organomegaly, no mass Extremities: other - right BKA 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 (2) Diabetes mellitus type II, uncontrolled Assessment & Plan: await Endocrinology consult. (3) Right BKA infection Assessment & Plan: See ID note. Continue Zosyn. Wound care. (4) Syncope (5) HTN (hypertension) Assessment & Plan: Continue Procardia (6) Hypercholesteremia Assessment & Plan: continue lipitor Status: not improved FELTON SMALLS Jun 02, 2017 10:24
--- NOTE | 2017-06-02 10:37 | Infectious Diseases Prog Note ---
Assessment/Plan Assessment/Plan ASSESSMENT: The patient is a 66-year-old male with: Right BKA stump wound infection, rule out osteomyelitis. -wound cx: +4 GNB 1, +4 GNB 2 (awaiting ID and sensi) -s/p admission in [facility] in March for stump infection s/p 4 weeks of PO abx (pt unsure of abx) Leukocytosis, mild -Bcx NTD Pyuria/Bacteriuria -u/a WBC 5-10, nit +, leuk +3; ucx >100K Serratia marcenses (S. CTX, zosy, Cipro, bactrim) NOHELIA on CKD, improving -renal U/s: Mild right hydronephrosis.Left kidney is normal. No left hydronephrosis. Left renal cyst is noted. Distended urinary bladder with wall thickening. There is layering debris within the urinary bladder. Cystitis cannot be excluded Hyperlipidemia. History of hypoglycemia. Hypertension. Diabetes. Atrial fibrillation. PLAN: - continue the patient on IV vancomycin #4 and Zosyn #3 pending wound cx -Monitor CBC/ BMP, temperatures -Monitor cultures (blood and wound). -f/u MRI of the lower extremity, rule out osteomyelitis -ESR and CRP for baseline -obtain records at [facility] for recent admission (cx obtained,a bx given, etc) -wound care Discussed with RN Subjective Allergies: Coded Allergies: No Known Allergies (Unverified , 04/25/17) Subjective afebrile VSS at RA mild leukocytosis today Bcx NTD wound cx growing 2 types of GNR awaiting MRI Objective Vital Signs Last 24 Hour Vital Signs Date Time Temp Pulse Resp B/P (MAP) Pulse Ox O2 Delivery O2 Flow Rate FiO2 06/02/17 08:39 86 106/58 06/02/17 08:00 98.0 69 19 139/71 97 Room Air 06/02/17 04:00 69 06/02/17 04:00 98.1 69 20 141/69 100 Room Air 06/02/17 00:00 77 06/01/17 23:48 98.1 80 20 123/66 94 Room Air 06/01/17 21:10 Room Air 21 06/01/17 21:10 98 Room Air 21 06/01/17 21:10 76 16 Room Air 21 06/01/17 20:00 98.2 75 20 149/78 97 Room Air 06/01/17 20:00 72 06/01/17 16:00 77 06/01/17 16:00 97.2 73 21 103/55 94 Room Air 06/01/17 12:00 97.1 71 21 147/73 98 06/01/17 12:00 71 Height (Feet): 6 Height (Inches): 2.00 Weight (Pounds): 112 Objective HEENT: No pale conjunctivae. No icterus. NECK: No lymphadenopathy. CHEST: Clear. HEART: S1 and S2. ABDOMEN: Soft and nontender. EXTREMITIES: Right BKA stump has open wound wit probing to bone and foul smellig odor, no purulence discharge, no surroudign skin cellulitis. NEUROLOGIC: Awake and alert. Microbiology Date/Time Source Procedure Growth Status 05/30/17 19:50 Blood Blood Culture - Preliminary NO GROWTH AFTER 48 HOURS Resulted 05/30/17 19:50 Blood Blood Culture - Preliminary NO GROWTH AFTER 48 HOURS Resulted 05/31/17 12:10 Urine,Clean Catch Urine Culture - Final Serratia Marcescens Complete 05/30/17 21:45 Leg Right Gram Stain - Final Resulted 05/30/17 21:45 Wound Culture - Preliminary Gram Negative Bacillus 1 Gram Negative Bacillus 2 Resulted Laboratory Tests Test 06/02/17 06:55 White Blood Count 11.5 K/UL (4.8-10.8) H Red Blood Count 2.93 M/UL (4.70-6.10) L Hemoglobin 8.6 G/DL (14.2-18.0) L Hematocrit 26.2 % (42.0-52.0) L Mean Corpuscular Volume 89 FL (80-99) Mean Corpuscular Hemoglobin 29.6 PG (27.0-31.0) Mean Corpuscular Hemoglobin Concent 33.0 G/DL (32.0-36.0) Red Cell Distribution Width 14.8 % (11.6-14.8) Platelet Count 305 K/UL (150-450) Mean Platelet Volume 7.7 FL (6.5-10.1) Neutrophils (%) (Auto) 81.2 % (45.0-75.0) H Lymphocytes (%) (Auto) 10.2 % (20.0-45.0) L Monocytes (%) (Auto) 7.0 % (1.0-10.0) Eosinophils (%) (Auto) 1.0 % (0.0-3.0) Basophils (%) (Auto) 0.6 % (0.0-2.0) Prothrombin Time 10.7 SEC (9.30-11.50) Prothromb Time International Ratio 1.0 (0.9-1.1) Activated Partial Thromboplast Time 35 SEC (23-33) H Sodium Level 132 mEQ/L (135-145) L Potassium Level 4.1 mEQ/L (3.4-4.9) Chloride Level 97 mEQ/L (98-107) L Carbon Dioxide Level 22 mEQ/L (20-30) Anion Gap 13 (5-15) Blood Urea Nitrogen 36 mg/dL (7-23) H Creatinine 2.1 mg/dL (0.7-1.2) H Estimat Glomerular Filtration Rate 38.5 mL/min (>60) Glucose Level 248 mg/dL (74-106) #H Calcium Level 8.2 mg/dL (8.6-10.2) L Phosphorus Level 3.0 mg/dL (2.5-4.8) Magnesium Level 2.0 mg/dL (1.7-2.5) Total Bilirubin 0.4 mg/dL (0.0-1.2) Aspartate Amino Transf (AST/SGOT) 50 U/L (5-40) H Alanine Aminotransferase (ALT/SGPT) 36 U/L (3-41) Alkaline Phosphatase 152 U/L (40-129) H Total Protein 6.1 g/dL (6.6-8.7) L Albumin 2.8 g/dL (3.5-5.2) L Globulin 3.3 g/dL Albumin/Globulin Ratio 0.8 (1.0-2.7) L Current Medications Medications (Trade) Dose Ordered Sig/Dragan Route PRN Reason Start Time Stop Time Status Last Admin Dose Admin Acetaminophen (Tylenol) 650 mg Q4H PRN ORAL fever 05/30/17 22:00 06/29/17 21:59 Albuterol/ Ipratropium (DuoNeb 0.5-3(2.5)mg/3ml) 3 ml EVERY 4 HOURS PRN HHN Shortness of Breath 05/30/17 22:00 06/04/17 21:59 Atorvastatin Calcium (Lipitor) 80 mg BEDTIME ORAL 05/31/17 21:00 06/30/17 20:59 06/01/17 20:30 Clonidine HCl (Catapres) 0.1 mg EVERY 4 HOURS PRN ORAL sbp more than 160 05/30/17 22:00 06/29/17 21:59 05/31/17 04:54 Dextrose (Dextrose 50%) STAT PRN IV Hypoglycemia 06/01/17 07:45 07/01/17 07:44 Gabapentin (Neurontin) 300 mg BEDTIME ORAL 05/31/17 21:00 06/30/17 20:59 06/01/17 20:30 Heparin Sodium (Porcine) (Heparin 5000 units/ml) 5,000 units EVERY 12 HOURS SUBQ 05/31/17 09:00 06/30/17 08:59 06/02/17 08:50 Insulin Aspart (NovoLOG) BEFORE MEALS AND HS SUBQ 05/31/17 11:30 06/30/17 11:29 06/02/17 06:38 Insulin Aspart (NovoLOG) 8 units NOVOTIAC SUBQ 06/02/17 11:50 07/02/17 11:49 Insulin Detemir (Levemir) 18 units BEDTIME SUBQ 06/02/17 21:00 07/02/17 20:59 Lansoprazole (Prevacid) 30 mg DAILY ORAL 05/31/17 09:45 06/30/17 09:44 06/02/17 08:47 Morphine Sulfate (Morphine Sulfate) 2 mg EVERY 4 HOURS PRN IVP severe pain 7-10 05/30/17 22:00 06/06/17 21:59 06/02/17 08:37 Nifedipine (Procardia XL) 60 mg DAILY ORAL 05/31/17 09:45 06/30/17 09:44 06/02/17 08:39 Nitroglycerin (Ntg) 0.4 mg Q5M X 3 DOSES PRN SL Prn Chest Pain 05/30/17 22:00 06/29/17 21:59 Ondansetron HCl (Zofran) 4 mg Q6H PRN IVP Nausea & Vomiting 05/30/17 22:00 06/29/17 21:59 06/01/17 20:40 Piperacillin Sod/ Tazobactam Sod 3.375 gm/Sodium Chloride 110 ml @ 27.5 mls/hr Q8H IVPB 05/31/17 04:00 06/07/17 03:59 06/02/17 04:12 Polyethylene Glycol (Miralax) 17 gm HSPRN PRN ORAL Constipation 05/30/17 22:00 06/29/17 21:59 06/01/17 08:24 Sodium Chloride 1,000 ml @ 100 mls/hr Q10H IVLG 05/31/17 01:00 06/30/17 00:59 06/02/17 03:12 Tamsulosin HCl (Flomax) 0.4 mg Q12HR ORAL 05/31/17 21:00 06/30/17 20:59 06/02/17 08:38 Temazepam (Restoril) 15 mg HSPRN PRN ORAL Insomnia 05/30/17 22:00 06/06/17 21:59 Vancomycin HCl (Vanco rx to dose) 1 ea DAILY PRN MISC Per rx protocol 05/30/17 22:00 06/29/17 21:59 Vancomycin/Sodium Chloride 250 ml @ 167.007 mls/hr Q12H IVPB 06/02/17 00:00 06/07/17 00:00 06/02/17 00:46 Liz Guevara M.D. Jun 02, 2017 10:37
--- NOTE | 2017-06-02 10:45 | General Progress Note ---
Assessment/Plan Status: stable Status Narrative Cr 2.1 stable Assessment/Plan admitted for syncope Has DM OOC h/o A fib acute renal failure on CRI previous Cr 1.9 now 2.1 h/o bladder outlet obstruction) per AILYN in past Also due to DM and HTN, has 3+ Proteinuria anemia DM HTN R BKA stump wound BLE pain severe protein calorie malnutrition Urinary retention due to bladder out let Obstruction bladder outlet obstruction Plan: hydrate- BS control Optimize BS and BP status Avoid nephrotoxics Flomax BID Anemia crawford Subjective ROS Limited/Unobtainable: No Constitutional: Reports: malaise Allergies: Coded Allergies: No Known Allergies (Unverified , 04/25/17) Objective Last 24 Hour Vital Signs Date Time Temp Pulse Resp B/P (MAP) Pulse Ox O2 Delivery O2 Flow Rate FiO2 06/02/17 08:39 86 106/58 06/02/17 08:00 98.0 69 19 139/71 97 Room Air 06/02/17 04:00 69 06/02/17 04:00 98.1 69 20 141/69 100 Room Air 06/02/17 00:00 77 06/01/17 23:48 98.1 80 20 123/66 94 Room Air 06/01/17 21:10 Room Air 21 06/01/17 21:10 98 Room Air 21 06/01/17 21:10 76 16 Room Air 21 06/01/17 20:00 98.2 75 20 149/78 97 Room Air 06/01/17 20:00 72 06/01/17 16:00 77 06/01/17 16:00 97.2 73 21 103/55 94 Room Air 06/01/17 12:00 97.1 71 21 147/73 98 06/01/17 12:00 71 Laboratory Tests 06/02/17 06:55: White Blood Count 11.5H, Red Blood Count 2.93L, Hemoglobin 8.6L, Hematocrit 26.2L, Mean Corpuscular Volume 89, Mean Corpuscular Hemoglobin 29.6, Mean Corpuscular Hemoglobin Concent 33.0, Red Cell Distribution Width 14.8, Platelet Count 305, Mean Platelet Volume 7.7, Neutrophils (%) (Auto) 81.2H, Lymphocytes ( %) (Auto) 10.2L, Monocytes (%) (Auto) 7.0, Eosinophils (%) (Auto) 1.0, Basophils (%) (Auto) 0.6, Prothrombin Time 10.7, Prothromb Time International Ratio 1.0, Activated Partial Thromboplast Time 35H, Sodium Level 132L, Potassium Level 4.1, Chloride Level 97L, Carbon Dioxide Level 22, Anion Gap 13, Blood Urea Nitrogen 36H, Creatinine 2.1H, Estimat Glomerular Filtration Rate 38.5, Glucose Level 248#H, Calcium Level 8.2L, Phosphorus Level 3.0, Magnesium Level 2.0, Total Bilirubin 0.4, Aspartate Amino Transf (AST/SGOT) 50H, Alanine Aminotransferase (ALT/SGPT) 36, Alkaline Phosphatase 152H, Total Protein 6.1L, Albumin 2.8L, Globulin 3.3, Albumin/Globulin Ratio 0.8L Height (Feet): 6 Height (Inches): 2.00 Weight (Pounds): 112 General Appearance: no apparent distress Objective no change in PE TYE TINAJERO Jun 02, 2017 10:45
--- NOTE | 2017-06-02 11:34 | Diagnostic Imaging Report ---
Indication: Dyspnea Comparison: 04/25/17 A single view chest radiograph was obtained. Findings: There is mild left basal atelectasis with elevated left hemidiaphragm and coarse like mainly linear appearing densities. No change otherwise. Heart size remains normal. Bones are unremarkable. Impression: Left basal atelectasis. Pneumonia not entirely excluded. Please correlate clinically.
[2017-06-02] MEDS ORDERED: Flu Vaccine Quadrivalent 0.5ml IM ONE (11:40)
[2017-06-02 12:00] VITALS: BP 132/66
--- NOTE | 2017-06-02 12:16 | Wound Care Consultation ---
Wound Assessment Wound Assessment : Wound Number: 1 Wound Present on Admission: Yes New Wound: No Status Change of Wound: No Wound Location Body Site Modif: right Wound Location Body Site: other - stump site. Wound Type: other - open wound bone exposed. Harriett Test: Does not Harriett Wound Thickness: Full Thickness Wound Length: 1.5 Wound Width: 2.0 Wound Depth: utd Percent of Wound Bed Yellow/Wh: 100 - bone Wound Drainage Description: Serosanguineous Wound Drainage Amount: Moderate Wound Drainage Odor: Foul Odor Tissue Surrounding Wound: Macerated Wound General Appearance: Draining, Bone Palpable, Bone Visible Wound Comment #1 Right stump open full thickness wound with bone exposed. Recommendation. - FOLLOW UP WITH MD FOR POSSIBLE FURTHER ORDERS, POSSIBLE CONSULT WITH PODIATRY. - Local wound care as ordered. -Turn and reposition. -Offload affected site. -Optimize nutrition. -keep clean and dry. -pressure reducing mattress. -Avoid shear and friction. -Assess and notify MD for any further changes of condition to skin is noted. NAHUM BRABOSA Jun 02, 2017 12:16
--- NOTE | 2017-06-02 12:58 | Pulmonology Progress Note ---
Assessment/Plan Problems: (1) Syncope (2) Sepsis (3) Right BKA infection (4) HTN (hypertension) (5) Diabetes mellitus (6) Renal failure (7) BPH (benign prostatic hyperplasia) Assessment/Plan iv fluids iv abx renal evaluation Echo shoed previously 55% EF f/y labs, electrolytes better avoid nephrotoxic sliding scale MRI fo stump ordered to rule out osteomyelitis, report pending sinus on telemetry, bp stable, med/surg Subjective ROS Limited/Unobtainable: No Constitutional: Reports: no symptoms HEENT: Repors: no symptoms Respiratory: Reports: no symptoms Allergies: Coded Allergies: No Known Allergies (Unverified , 04/25/17) Objective Last 24 Hour Vital Signs Date Time Temp Pulse Resp B/P (MAP) Pulse Ox O2 Delivery O2 Flow Rate FiO2 06/02/17 12:00 97.6 72 19 132/66 100 Room Air 06/02/17 11:42 98 Room Air 21 06/02/17 11:42 Room Air 21 06/02/17 11:42 64 16 Room Air 06/02/17 08:39 86 106/58 06/02/17 08:00 98.0 69 19 139/71 97 Room Air 06/02/17 04:00 69 06/02/17 04:00 98.1 69 20 141/69 100 Room Air 06/02/17 00:00 77 06/01/17 23:48 98.1 80 20 123/66 94 Room Air 06/01/17 21:10 Room Air 21 06/01/17 21:10 98 Room Air 21 06/01/17 21:10 76 16 Room Air 21 06/01/17 20:00 98.2 75 20 149/78 97 Room Air 06/01/17 20:00 72 06/01/17 16:00 77 06/01/17 16:00 97.2 73 21 103/55 94 Room Air General Appearance: cachetic HEENT: normocephalic, atraumatic Respiratory/Chest: chest wall non-tender, normal breath sounds Cardiovascular: normal peripheral pulses, normal rate Abdomen: normal bowel sounds, soft, non tender Genitourinary: normal external genitalia Extremities: no cyanosis Skin: no ulcers Neurologic/Psychiatric: no motor/sensory deficits Lymphatic: no neck adenopathy Microbiology Date/Time Source Procedure Growth Status 05/30/17 19:50 Blood Blood Culture - Preliminary NO GROWTH AFTER 48 HOURS Resulted 05/30/17 19:50 Blood Blood Culture - Preliminary NO GROWTH AFTER 48 HOURS Resulted 05/31/17 12:10 Urine,Clean Catch Urine Culture - Final Serratia Marcescens Complete 05/30/17 21:45 Leg Right Gram Stain - Final Resulted 05/30/17 21:45 Wound Culture - Preliminary Serratia Marcescens Enterobacter Cloacae Complex Diphtheroids Resulted Laboratory Tests 06/02/17 06:55: White Blood Count 11.5H, Red Blood Count 2.93L, Hemoglobin 8.6L, Hematocrit 26.2L, Mean Corpuscular Volume 89, Mean Corpuscular Hemoglobin 29.6, Mean Corpuscular Hemoglobin Concent 33.0, Red Cell Distribution Width 14.8, Platelet Count 305, Mean Platelet Volume 7.7, Neutrophils (%) (Auto) 81.2H, Lymphocytes ( %) (Auto) 10.2L, Monocytes (%) (Auto) 7.0, Eosinophils (%) (Auto) 1.0, Basophils (%) (Auto) 0.6, Prothrombin Time 10.7, Prothromb Time International Ratio 1.0, Activated Partial Thromboplast Time 35H, Sodium Level 132L, Potassium Level 4.1, Chloride Level 97L, Carbon Dioxide Level 22, Anion Gap 13, Blood Urea Nitrogen 36H, Creatinine 2.1H, Estimat Glomerular Filtration Rate 38.5, Glucose Level 248#H, Calcium Level 8.2L, Phosphorus Level 3.0, Magnesium Level 2.0, Total Bilirubin 0.4, Aspartate Amino Transf (AST/SGOT) 50H, Alanine Aminotransferase (ALT/SGPT) 36, Alkaline Phosphatase 152H, Total Protein 6.1L, Albumin 2.8L, Globulin 3.3, Albumin/Globulin Ratio 0.8L 06/02/17 11:20: Vancomycin Level Trough 20.0H Current Medications Medications (Trade) Dose Ordered Sig/Dragan Route PRN Reason Start Time Stop Time Status Last Admin Dose Admin Acetaminophen (Tylenol) 650 mg Q4H PRN ORAL fever 05/30/17 22:00 06/29/17 21:59 Albuterol/ Ipratropium (DuoNeb 0.5-3(2.5)mg/3ml) 3 ml EVERY 4 HOURS PRN HHN Shortness of Breath 05/30/17 22:00 06/04/17 21:59 Atorvastatin Calcium (Lipitor) 80 mg BEDTIME ORAL 05/31/17 21:00 06/30/17 20:59 06/01/17 20:30 Clonidine HCl (Catapres) 0.1 mg EVERY 4 HOURS PRN ORAL sbp more than 160 05/30/17 22:00 06/29/17 21:59 05/31/17 04:54 Dextrose (Dextrose 50%) STAT PRN IV Hypoglycemia 06/01/17 07:45 07/01/17 07:44 Gabapentin (Neurontin) 300 mg BEDTIME ORAL 05/31/17 21:00 06/30/17 20:59 06/01/17 20:30 Heparin Sodium (Porcine) (Heparin 5000 units/ml) 5,000 units EVERY 12 HOURS SUBQ 05/31/17 09:00 06/30/17 08:59 06/02/17 08:50 Insulin Aspart (NovoLOG) BEFORE MEALS AND HS SUBQ 05/31/17 11:30 06/30/17 11:29 06/02/17 11:30 Insulin Aspart (NovoLOG) 8 units NOVOTIAC SUBQ 06/02/17 11:50 07/02/17 11:49 06/02/17 11:56 Insulin Detemir (Levemir) 18 units BEDTIME SUBQ 06/02/17 21:00 07/02/17 20:59 Lansoprazole (Prevacid) 30 mg DAILY ORAL 05/31/17 09:45 06/30/17 09:44 06/02/17 08:47 Morphine Sulfate (Morphine Sulfate) 2 mg EVERY 4 HOURS PRN IVP severe pain 7-10 05/30/17 22:00 06/06/17 21:59 06/02/17 08:37 Nifedipine (Procardia XL) 60 mg DAILY ORAL 05/31/17 09:45 06/30/17 09:44 06/02/17 08:39 Nitroglycerin (Ntg) 0.4 mg Q5M X 3 DOSES PRN SL Prn Chest Pain 05/30/17 22:00 06/29/17 21:59 Ondansetron HCl (Zofran) 4 mg Q6H PRN IVP Nausea & Vomiting 05/30/17 22:00 06/29/17 21:59 06/01/17 20:40 Piperacillin Sod/ Tazobactam Sod 3.375 gm/Sodium Chloride 110 ml @ 27.5 mls/hr Q8H IVPB 05/31/17 04:00 06/07/17 03:59 06/02/17 04:12 Polyethylene Glycol (Miralax) 17 gm HSPRN PRN ORAL Constipation 05/30/17 22:00 06/29/17 21:59 06/01/17 08:24 Sodium Chloride 1,000 ml @ 100 mls/hr Q10H IVLG 05/31/17 01:00 06/30/17 00:59 06/02/17 03:12 Tamsulosin HCl (Flomax) 0.4 mg Q12HR ORAL 05/31/17 21:00 06/30/17 20:59 06/02/17 08:38 Temazepam (Restoril) 15 mg HSPRN PRN ORAL Insomnia 05/30/17 22:00 06/06/17 21:59 Vancomycin HCl (Vanco rx to dose) 1 ea DAILY PRN MISC Per rx protocol 05/30/17 22:00 06/29/17 21:59 BRIAN HERNANDEZ Jun 02, 2017 12:58
--- NOTE | 2017-06-02 13:40 | Cardiac Electrophysiology PN ---
Subjective Subjective [id number] Objective Last 24 Hour Vital Signs Date Time Temp Pulse Resp B/P (MAP) Pulse Ox O2 Delivery O2 Flow Rate FiO2 06/02/17 12:00 97.6 72 19 132/66 100 Room Air 06/02/17 11:42 98 Room Air 21 06/02/17 11:42 Room Air 21 06/02/17 11:42 64 16 Room Air 06/02/17 08:39 86 106/58 06/02/17 08:00 98.0 69 19 139/71 97 Room Air 06/02/17 04:00 69 06/02/17 04:00 98.1 69 20 141/69 100 Room Air 06/02/17 00:00 77 06/01/17 23:48 98.1 80 20 123/66 94 Room Air 06/01/17 21:10 Room Air 21 06/01/17 21:10 98 Room Air 21 06/01/17 21:10 76 16 Room Air 21 06/01/17 20:00 98.2 75 20 149/78 97 Room Air 06/01/17 20:00 72 06/01/17 16:00 77 06/01/17 16:00 97.2 73 21 103/55 94 Room Air Intake and Output 06/02/17 06/03/17 19:00 07:00 Output Total 500 ml Balance -500 ml Output Urine Total 500 ml # Voids 1 Laboratory Tests Test 06/02/17 06:55 06/02/17 11:20 White Blood Count 11.5 K/UL (4.8-10.8) H Red Blood Count 2.93 M/UL (4.70-6.10) L Hemoglobin 8.6 G/DL (14.2-18.0) L Hematocrit 26.2 % (42.0-52.0) L Mean Corpuscular Volume 89 FL (80-99) Mean Corpuscular Hemoglobin 29.6 PG (27.0-31.0) Mean Corpuscular Hemoglobin Concent 33.0 G/DL (32.0-36.0) Red Cell Distribution Width 14.8 % (11.6-14.8) Platelet Count 305 K/UL (150-450) Mean Platelet Volume 7.7 FL (6.5-10.1) Neutrophils (%) (Auto) 81.2 % (45.0-75.0) H Lymphocytes (%) (Auto) 10.2 % (20.0-45.0) L Monocytes (%) (Auto) 7.0 % (1.0-10.0) Eosinophils (%) (Auto) 1.0 % (0.0-3.0) Basophils (%) (Auto) 0.6 % (0.0-2.0) Prothrombin Time 10.7 SEC (9.30-11.50) Prothromb Time International Ratio 1.0 (0.9-1.1) Activated Partial Thromboplast Time 35 SEC (23-33) H Sodium Level 132 mEQ/L (135-145) L Potassium Level 4.1 mEQ/L (3.4-4.9) Chloride Level 97 mEQ/L (98-107) L Carbon Dioxide Level 22 mEQ/L (20-30) Anion Gap 13 (5-15) Blood Urea Nitrogen 36 mg/dL (7-23) H Creatinine 2.1 mg/dL (0.7-1.2) H Estimat Glomerular Filtration Rate 38.5 mL/min (>60) Glucose Level 248 mg/dL (74-106) #H Calcium Level 8.2 mg/dL (8.6-10.2) L Phosphorus Level 3.0 mg/dL (2.5-4.8) Magnesium Level 2.0 mg/dL (1.7-2.5) Total Bilirubin 0.4 mg/dL (0.0-1.2) Aspartate Amino Transf (AST/SGOT) 50 U/L (5-40) H Alanine Aminotransferase (ALT/SGPT) 36 U/L (3-41) Alkaline Phosphatase 152 U/L (40-129) H Total Protein 6.1 g/dL (6.6-8.7) L Albumin 2.8 g/dL (3.5-5.2) L Globulin 3.3 g/dL Albumin/Globulin Ratio 0.8 (1.0-2.7) L Vancomycin Level Trough 20.0 ug/mL (5.0-12.0) H Microbiology Date/Time Source Procedure Growth Status 05/30/17 19:50 Blood Blood Culture - Preliminary NO GROWTH AFTER 48 HOURS Resulted 05/30/17 19:50 Blood Blood Culture - Preliminary NO GROWTH AFTER 48 HOURS Resulted 05/31/17 12:10 Urine,Clean Catch Urine Culture - Final Serratia Marcescens Complete 05/30/17 21:45 Leg Right Gram Stain - Final Resulted 05/30/17 21:45 Wound Culture - Preliminary Serratia Marcescens Enterobacter Cloacae Complex Diphtheroids Resulted MADI MAYBERRY Jun 02, 2017 13:40
--- NOTE | 2017-06-02 15:04 | Diagnostic Imaging Report ---
Indication: Osteomyelitis. Abscess. Presentation BKA. Open wound anterior tibial stump Technique: MRI of the right tibia was imaged in a 1.5 Kat magnet. Pulse sequences obtained include supine on T1 fast spin-echo, STIR without gadolinium. Plain film correlation also made.. Comparison: None Findings: There is a fairly large circumscribed lucency in the lower anterior tibia demonstrated on plain x-ray. This erosion corresponds to MR demonstrated low signal intensity air-filled erosion. The bones surrounding the cavity exhibits low T1 and high T2 signal. There is cortical disruption at the anterior caudal end of this erosion with extensive adjacent soft tissue edema also involving the stump. The findings are consistent with acute osteomyelitis and cellulitis. In addition the muscles in both anterior and posterior compartments of the leg are edematous exhibiting T1 hypointensity and T2 hyperintensity. There is no obvious abscess identified. Impression: Acute osteomyelitis demonstrated in the right tibial stump.
--- NOTE | 2017-06-02 15:20 | Diagnostic Imaging Report ---
Indication: Pain Comparison: None Findings: Two views of the right tibia and fibula were obtained. There is a somewhat circumscribed lucency at the distal end of the right tibia in a patient with fat below the knee of dictation. There is soft tissue swelling present. The findings are consistent with acute osteomyelitis which has been confirmed by MRI. Multiple buckshot foreign bodies are present in the upper part of the leg just below the knee. Bones are osteopenic. Vascular calcifications are present. Impression: Acute osteomyelitis with a prominent stump erosion of the distal tibia. Please refer to the MRI report.
[2017-06-02 16:00] VITALS: BP 152/70
[2017-06-02] MEDS ORDERED: Albuterol/Ipratropium 3ml neb HHN PRN (17:00)
[2017-06-02] MEDS ORDERED: Nitroglycerin Subl 0.4mg tab SL PRN (17:00)
[2017-06-02] MEDS ORDERED: Miralax 17gm pkt ORAL PRN (17:00)
[2017-06-02] MEDS: Eliquis 2.5mg tablet ORAL SCH (17:31)
[2017-06-02] MEDS ORDERED: Eliquis 2.5mg tablet ORAL SCH (18:00)
[2017-06-02] MEDS ORDERED: metFORMIN 500mg tab ORAL SCH (18:00)
[2017-06-02 20:00] VITALS: BP 143/81
[2017-06-02] MEDS ORDERED: Heparin 5000 units/ml inj SUBQ SCH (21:00)
[2017-06-02] MEDS: Carvedilol 6.25mg Tab ORAL SCH (21:00)
[2017-06-02] MEDS ORDERED: Carvedilol 6.25mg Tab ORAL SCH (21:00)
[2017-06-02] MEDS: Atorvastatin 80mg tab ORAL SCH (21:00)
[2017-06-02] MEDS ORDERED: Levemir Flexpen SUBQ SCH ×2 (21:00)
--- NOTE | 2017-06-02 21:45 | Consultation ---
DATE OF CONSULTATION: 06/02/2017 CARDIOLOGY CONSULTATION CONSULTING PHYSICIAN: Pradeep Ortiz M.D. ATTENDING PHYSICIAN: Bruno Serrato M.D. REFERRING PHYSICIAN: Bruno Serrato M.D. Reason For Consultation: Management of hypertension as well as paroxysmal atrial fibrillation. History of Present Illness: The patient is a 66-year-old gentleman with history of hypertension, paroxysmal atrial fibrillation, as well as right bkwvw-[id number] amputation was recently discharged from the hospital. The patient came to the emergency room for the amputation site in the right below-knee as well as significant discharge from the site. The patient was started on Bactrim as an outpatient, however it did not respond. The patient presented to [facility] emergency room and had a syncopal episodes there as well. No arrhythmia was recorded. At the time of my evaluation, the patient denies any chest pain, palpitation, or shortness of breath. His EKG on 05/30/2017 at [facility] showed normal sinus rhythm. PAST MEDICAL HISTORY: 1. Hypertension. 2. Hyperlipidemia. 3. Diabetes. 4. Paroxysmal atrial fibrillation. Past Surgical History: Includes status post right gjvet-wpq-jrha amputation. Medications: Per reconciliation. The patient however stated that he is not taking anticoagulation. ALLERGIES: He has no known drug allergies. Review Of Systems: Review of systems was performed and was negative other than what was mentioned in the history of present illness. PHYSICAL EXAMINATION: Vital Signs: Blood pressure is 132/66, pulse 72, respirations 19, and temperature 97.6. HEAD AND NECK: Showed no JVD or carotid bruits. LUNGS: Clear. CARDIOVASCULAR: Shows regular S1 and S2 with no gallop. ABDOMEN: Soft. Extremities: Status post right vyhqd-dpi-nask amputation covered with dressing. Laboratory Data: White count 11.5, hemoglobin 8.6, hematocrit 26.2, and platelet count is 305. Sodium is 132, potassium 4.1, BUN of 36, creatinine of 2.1, and glucose of 248. INR is 1. His vancomycin level is 20. ASSESSMENT AND PLAN: 1. Paroxysmal atrial fibrillation, currently in sinus rhythm. We will watch the patient on telemetry. The patient is currently is off any AV terrance blockers. His atrial fibrillation is down, currently the patient needs to be on long-term anticoagulation. 2. Hypertension, Procardia XL 60 mg daily. 3. Hyperlipidemia, on Lipitor. 4. Status post right ocypj-gma-ozem amputation and infection at the site, the patient on IV antibiotic per Infectious Diseases with vancomycin and Zosyn. Thank you very much, Dr. Serrato for allowing me to participate in the care of this patient. Please do not hesitate to contact me for any questions regarding my evaluation. Pradeep Ortiz M.D. DR: AILYN JOB#: [id number] CC:
[2017-06-03] VITALS: BP 138/69
[2017-06-03] MEDS: Morphine Sulfate 2mg/ml Inj IVP PRN ×4 (02:00→20:58)
[2017-06-03 04:00] VITALS: BP 141/64
[2017-06-03] MEDS: Piperacillin/Tazobactam 3.375 GM in NS 110 ML IVPB SCH ×2 (04:00→12:47)
[2017-06-03] MEDS: NovoLOG Insulin Flexpen SUBQ SCH ×7 (06:30→21:00)
[2017-06-03 07:11] LABS: BASOPHILS % (AUTO) 0.8 % (0.0-2.0); EOSINOPHILS % (AUTO) 2.2 % (0.0-3.0); LYMPHOCYTES % (AUTO) 11.9 % (20.0-45.0); MEAN CORPUSCULAR HEMOGLOBIN 29.5 PG (27.0-31.0); MEAN CORPUSCULAR HGB CONC 32.6 G/DL (32.0-36.0); MEAN CORPUSCULAR VOLUME 91 FL (80-99); MEAN PLATELET VOLUME 7.8 FL (6.5-10.1); MONOCYTES % (AUTO) 8.3 % (1.0-10.0); NEUTROPHILS % (AUTO) 76.9 % (45.0-75.0); PLATELET COUNT 309 K/UL (150-450); RED BLOOD COUNT 2.74 M/UL (4.70-6.10); RED CELL DISTRIBUTION WIDTH 15.3 % (11.6-14.8); WHITE BLOOD COUNT 12.5 K/UL (4.8-10.8)
[2017-06-03 07:53] LABS: CALCIUM 8.7 mg/dL (8.6-10.2); CREATININE 2.1 mg/dL (0.7-1.2); GLOMERULAR FILTRATION RATE 38.5 mL/min (>60); POTASSIUM 3.9 mEQ/L (3.4-4.9)
[2017-06-03 08:00] VITALS: BP 106/58
[2017-06-03] MEDS: Eliquis 2.5mg tablet ORAL SCH ×2 (08:25→17:19)
[2017-06-03] MEDS: Tamsulosin 0.4mg cap ORAL SCH ×2 (08:25→20:58)
[2017-06-03] MEDS: Carvedilol 6.25mg Tab ORAL SCH ×2 (08:26→20:57)
[2017-06-03] MEDS ORDERED: Flu Vaccine Quadrivalent 0.5ml IM ONE (09:00)
--- NOTE | 2017-06-03 09:09 | General Progress Note ---
Assessment/Plan Problem List: (1) Uncontrolled diabetes mellitus ICD Codes: E11.65 - Type 2 diabetes mellitus with hyperglycemia SNOMED: 982087902, 28904126 (2) HTN (hypertension) ICD Codes: I10 - Essential (primary) hypertension SNOMED: 27746303 (3) BPH (benign prostatic hyperplasia) ICD Codes: N40.0 - Benign prostatic hyperplasia without lower urinary tract symptoms SNOMED: 397998919, 249161666 (4) Right BKA infection ICD Codes: T87.43 - Infection of amputation stump, right lower extremity SNOMED: 864328293 (5) Renal failure ICD Codes: N19 - Unspecified kidney failure SNOMED: 59691734 Assessment/Plan continue to keep off Metformin due to NOHELIA reduce Levemir to 15 units qhs reduce Novolog to 6 units ac tid + SSI Subjective Allergies: Coded Allergies: No Known Allergies (Unverified , 04/25/17) All Systems: reviewed and negative except above Subjective hypoglycemia and hypothermia this morning Objective Last 24 Hour Vital Signs Date Time Temp Pulse Resp B/P (MAP) Pulse Ox O2 Delivery O2 Flow Rate FiO2 06/03/17 08:26 87 106/64 06/03/17 08:00 97.0 87 18 106/58 96 Room Air 06/03/17 07:46 Room Air 21 06/03/17 07:46 94 Room Air 06/03/17 07:45 99 16 Room Air 06/03/17 04:00 66 18 141/64 100 Room Air 06/03/17 00:00 97.9 75 17 138/69 98 Room Air 06/02/17 21:00 75 140/80 06/02/17 20:00 98.0 82 18 143/81 96 Room Air 06/02/17 19:30 96 Room Air 21 06/02/17 19:30 61 16 Room Air 21 06/02/17 19:30 Room Air 21 06/02/17 18:49 97.6 06/02/17 16:00 97.6 71 19 152/70 97 Room Air 06/02/17 12:00 97.6 72 19 132/66 100 Room Air 06/02/17 12:00 71 06/02/17 11:42 98 Room Air 21 06/02/17 11:42 Room Air 21 06/02/17 11:42 64 16 Room Air Intake and Output 06/03/17 06/04/17 19:00 07:00 Intake Total 240 ml Output Total 350 ml Balance -110 ml Intake Oral 240 ml Output Urine Total 350 ml # Bowel Movements 1 Laboratory Tests 06/02/17 11:20: Vancomycin Level Trough 20.0H 06/03/17 05:50: White Blood Count 12.5H, Red Blood Count 2.74L, Hemoglobin 8.1L, Hematocrit 24.8L, Mean Corpuscular Volume 91, Mean Corpuscular Hemoglobin 29.5, Mean Corpuscular Hemoglobin Concent 32.6, Red Cell Distribution Width 15.3H, Platelet Count 309, Mean Platelet Volume 7.8, Neutrophils (%) (Auto) 76.9H, Lymphocytes (%) (Auto) 11.9L, Monocytes (%) (Auto) 8.3, Eosinophils (%) (Auto) 2.2, Basophils (%) (Auto) 0.8, Sodium Level 139, Potassium Level 3.9, Chloride Level 104, Carbon Dioxide Level 20, Anion Gap 15, Blood Urea Nitrogen 28H, Creatinine 2.1H, Estimat Glomerular Filtration Rate 38.5, Glucose Level 73#L, Calcium Level 8.7, C-Reactive Protein, Quantitative 6.1H, Random Vancomycin Level 15.7 Height (Feet): 6 Height (Inches): 2.00 Weight (Pounds): 112 General Appearance: no apparent distress Neck: normal alignment Cardiovascular: normal rate Respiratory/Chest: lungs clear Abdomen: normal bowel sounds Extremities: other - right BKA Objective Current Medications Medications (Trade) Dose Ordered Sig/Dragan Route PRN Reason Start Time Stop Time Status Last Admin Dose Admin Acetaminophen (Tylenol) 650 mg Q4H PRN ORAL fever 06/02/17 17:00 06/29/17 16:59 Albuterol/ Ipratropium (DuoNeb 0.5-3(2.5)mg/3ml) 3 ml Q4H PRN HHN Shortness of Breath 06/02/17 17:00 06/07/17 16:59 Amlodipine Besylate (Norvasc) 2.5 mg DAILY ORAL 06/03/17 09:00 07/03/17 08:59 Apixaban (Eliquis) 2.5 mg BID ORAL 06/02/17 18:00 07/02/17 17:59 06/03/17 08:25 Atorvastatin Calcium (Lipitor) 80 mg BEDTIME ORAL 06/02/17 21:00 06/30/17 20:59 06/02/17 21:00 Carvedilol (Coreg) 6.25 mg EVERY 12 HOURS ORAL 06/02/17 21:00 07/02/17 20:59 06/03/17 08:26 Clonidine HCl (Catapres) 0.1 mg Q4H PRN ORAL sbp more than 160 06/02/17 17:00 07/02/17 16:59 Dextrose (Dextrose 50%) STAT PRN IV Hypoglycemia 06/02/17 17:00 07/02/17 16:59 Gabapentin (Neurontin) 300 mg BEDTIME ORAL 06/02/17 21:00 07/02/17 20:59 06/02/17 21:00 Insulin Aspart (NovoLOG) BEFORE MEALS AND HS SUBQ 06/02/17 17:30 06/30/17 17:29 06/02/17 21:00 Insulin Aspart (NovoLOG) 8 units NOVOTIAC SUBQ 06/02/17 17:30 07/02/17 17:29 06/02/17 17:32 Insulin Detemir (Levemir) 18 units BEDTIME SUBQ 06/02/17 21:00 07/02/17 20:59 06/02/17 21:00 Lansoprazole (Prevacid) 30 mg DAILY ORAL 06/03/17 09:00 06/30/17 09:44 Morphine Sulfate (Morphine Sulfate) 2 mg Q4H PRN IVP severe pain 7-10 06/02/17 17:00 06/09/17 16:59 06/03/17 08:27 Nifedipine (Procardia XL) 60 mg DAILY ORAL 06/03/17 09:00 06/30/17 09:44 Nitroglycerin (Ntg) 0.4 mg Q5M X 3 DOSES PRN SL Prn Chest Pain 06/02/17 17:00 06/29/17 16:59 Ondansetron HCl (Zofran) 4 mg Q6H PRN IVP Nausea & Vomiting 06/02/17 17:00 06/29/17 16:59 Piperacillin Sod/ Tazobactam Sod 3.375 gm/Sodium Chloride 110 ml @ 27.5 mls/hr Q8H IVPB 06/02/17 20:00 06/07/17 03:59 06/03/17 04:00 Polyethylene Glycol (Miralax) 17 gm HSPRN PRN ORAL Constipation 06/02/17 17:00 06/29/17 16:59 Sodium Chloride 1,000 ml @ 100 mls/hr Q10H IVLG 06/02/17 17:30 06/30/17 17:29 06/03/17 01:54 Tamsulosin HCl (Flomax) 0.4 mg Q12HR ORAL 06/02/17 21:00 06/30/17 20:59 06/03/17 08:25 Temazepam (Restoril) 15 mg HSPRN PRN ORAL Insomnia 06/02/17 17:00 06/06/17 16:59 Vancomycin HCl (Vanco rx to dose) 1 ea DAILY PRN MISC Per rx protocol 06/03/17 09:00 06/29/17 21:59 Vancomycin/Sodium Chloride 250 ml @ 167.007 mls/hr Q24H IVPB 06/03/17 10:00 06/08/17 09:59 Item Value Date Time Bedside Blood Glucose 86 mg/dl 06/03/17 0630 Bedside Blood Glucose 113 mg/dl 06/02/17 2100 Bedside Blood Glucose 247 mg/dl H 06/02/17 1732 Bedside Blood Glucose 341 mg/dl H 06/02/17 1156 Bedside Blood Glucose 278 mg/dl H 06/02/17 0639 CHRISTIAN MARIN Jun 03, 2017 09:09
--- NOTE | 2017-06-03 09:33 | General Progress Note ---
Assessment/Plan Assessment/Plan ASSESSMENT AND PLAN: 1. Anemia secondary to chronic disease. Anemia workup has been reviewed, consistent with anemia of chronic disease. 2. Decreased hemoglobin and hematocrit. Rule out gastrointestinal bleed. Occult blood is negative. 3. Acute kidney injury, mild hydronephrosis with history of bladder outlet obstruction. 4. Diabetes mellitus. Continue to better control diabetes mellitus. 5. Followup with nephrology team. 6. Right below-knee amputation infection and cellulitis. Rule out osteomyelitis 7. Hypertension. Subjective Date patient seen: Jun 02, 2017 Constitutional: Reports: no symptoms HEENT: Reports: no symptoms Cardiovascular: Reports: no symptoms Respiratory: Reports: no symptoms Gastrointestinal/Abdominal: Reports: no symptoms Genitourinary: Reports: no symptoms Neurologic/Psychiatric: Reports: no symptoms Endocrine: Reports: no symptoms Hematologic/Lymphatic: Reports: no symptoms Allergies: Coded Allergies: No Known Allergies (Unverified , 04/25/17) Subjective no fevers, chills , no bleeding Objective Last 24 Hour Vital Signs Date Time Temp Pulse Resp B/P (MAP) Pulse Ox O2 Delivery O2 Flow Rate FiO2 06/03/17 08:26 87 106/64 06/03/17 08:00 97.0 87 18 106/58 96 Room Air 06/03/17 07:46 Room Air 21 06/03/17 07:46 94 Room Air 06/03/17 07:45 99 16 Room Air 06/03/17 04:00 66 18 141/64 100 Room Air 06/03/17 00:00 97.9 75 17 138/69 98 Room Air 06/02/17 21:00 75 140/80 06/02/17 20:00 98.0 82 18 143/81 96 Room Air 06/02/17 19:30 96 Room Air 21 06/02/17 19:30 61 16 Room Air 21 06/02/17 19:30 Room Air 21 06/02/17 18:49 97.6 06/02/17 16:00 97.6 71 19 152/70 97 Room Air 06/02/17 12:00 97.6 72 19 132/66 100 Room Air 06/02/17 12:00 71 06/02/17 11:42 98 Room Air 21 06/02/17 11:42 Room Air 21 06/02/17 11:42 64 16 Room Air Intake and Output 06/03/17 06/04/17 19:00 07:00 Intake Total 240 ml Output Total 350 ml Balance -110 ml Intake Oral 240 ml Output Urine Total 350 ml # Bowel Movements 1 Laboratory Tests 06/02/17 11:20: Vancomycin Level Trough 20.0H 06/03/17 05:50: White Blood Count 12.5H, Red Blood Count 2.74L, Hemoglobin 8.1L, Hematocrit 24.8L, Mean Corpuscular Volume 91, Mean Corpuscular Hemoglobin 29.5, Mean Corpuscular Hemoglobin Concent 32.6, Red Cell Distribution Width 15.3H, Platelet Count 309, Mean Platelet Volume 7.8, Neutrophils (%) (Auto) 76.9H, Lymphocytes (%) (Auto) 11.9L, Monocytes (%) (Auto) 8.3, Eosinophils (%) (Auto) 2.2, Basophils (%) (Auto) 0.8, Sodium Level 139, Potassium Level 3.9, Chloride Level 104, Carbon Dioxide Level 20, Anion Gap 15, Blood Urea Nitrogen 28H, Creatinine 2.1H, Estimat Glomerular Filtration Rate 38.5, Glucose Level 73#L, Calcium Level 8.7, C-Reactive Protein, Quantitative 6.1H, Random Vancomycin Level 15.7 Height (Feet): 6 Height (Inches): 2.00 Weight (Pounds): 112 General Appearance: no apparent distress EENT: normal ENT inspection Neck: normal alignment Cardiovascular: normal rate Abdomen: normal bowel sounds, non tender Extremities: normal range of motion Edema: mild edema Dino Acosta Jun 03, 2017 09:33
[2017-06-03] MEDS ORDERED: Vancomycin 750mg/NS 250ml 250 ML IVPB SCH (10:00)
[2017-06-03 11:52] VITALS: BP 111/63
--- NOTE | 2017-06-03 11:53 | General Progress Note ---
Progress Note Progress Note Chart reviewed, pt examined, consult dictated. Impression: Infected right below knee amputation stump with osteomyelitis, DM, COPD, peripheral vascular disease. Plan: will obtain arterial doppler studies, pt will ultimately need a right above knee amputation Ben Burgess MD Jun 03, 2017 11:53
--- NOTE | 2017-06-03 12:09 | General Progress Note ---
Assessment/Plan Status: stable Status Narrative Cr 2.1 stable- Has Osteomyelitis stump Assessment/Plan admitted for syncope Has DM OOC h/o A fib acute renal failure on CRI previous Cr 1.9 now 2.1 h/o bladder outlet obstruction) per [facility]N in past Also due to DM and HTN, has 3+ Proteinuria anemia DM HTN R BKA stump wound BLE pain severe protein calorie malnutrition Urinary retention due to bladder out let Obstruction bladder outlet obstruction Plan: detention antibiotic vs Surgical intervention for Osteo BS control Optimize BS and BP status Avoid nephrotoxics Flomax BID Anemia crawford Subjective ROS Limited/Unobtainable: No Constitutional: Reports: malaise Allergies: Coded Allergies: No Known Allergies (Unverified , 04/25/17) Objective Last 24 Hour Vital Signs Date Time Temp Pulse Resp B/P (MAP) Pulse Ox O2 Delivery O2 Flow Rate FiO2 06/03/17 11:52 97.8 82 20 111/63 92 Room Air 06/03/17 09:00 87 106/64 06/03/17 09:00 87 106/64 06/03/17 08:57 97.9 06/03/17 08:26 87 106/64 06/03/17 08:00 97.0 87 18 106/58 96 Room Air 06/03/17 07:46 Room Air 21 06/03/17 07:46 94 Room Air 21 06/03/17 07:45 99 16 Room Air 21 06/03/17 04:00 66 18 141/64 100 Room Air 06/03/17 00:00 97.9 75 17 138/69 98 Room Air 06/02/17 21:00 75 140/80 06/02/17 20:00 98.0 82 18 143/81 96 Room Air 06/02/17 19:30 96 Room Air 21 06/02/17 19:30 61 16 Room Air 21 06/02/17 19:30 Room Air 21 06/02/17 16:00 97.6 71 19 152/70 97 Room Air Intake and Output 06/03/17 06/04/17 19:00 07:00 Intake Total 540 ml Output Total 350 ml Balance 190 ml Intake Oral 240 ml IV Total 300 ml Output Urine Total 350 ml # Bowel Movements 3 Laboratory Tests 06/03/17 05:50: White Blood Count 12.5H, Red Blood Count 2.74L, Hemoglobin 8.1L, Hematocrit 24.8L, Mean Corpuscular Volume 91, Mean Corpuscular Hemoglobin 29.5, Mean Corpuscular Hemoglobin Concent 32.6, Red Cell Distribution Width 15.3H, Platelet Count 309, Mean Platelet Volume 7.8, Neutrophils (%) (Auto) 76.9H, Lymphocytes (%) (Auto) 11.9L, Monocytes (%) (Auto) 8.3, Eosinophils (%) (Auto) 2.2, Basophils (%) (Auto) 0.8, Sodium Level 139, Potassium Level 3.9, Chloride Level 104, Carbon Dioxide Level 20, Anion Gap 15, Blood Urea Nitrogen 28H, Creatinine 2.1H, Estimat Glomerular Filtration Rate 38.5, Glucose Level 73#L, Calcium Level 8.7, C-Reactive Protein, Quantitative 6.1H, Random Vancomycin Level 15.7 Height (Feet): 6 Height (Inches): 2.00 Weight (Pounds): 112 General Appearance: no apparent distress Objective no change in PE TYE TINAJERO Jun 03, 2017 12:08
--- NOTE | 2017-06-03 12:24 | Pulmonology Progress Note ---
Assessment/Plan Problems: (1) Syncope (2) Sepsis (3) Right BKA infection (4) HTN (hypertension) (5) Diabetes mellitus (6) Renal failure (7) BPH (benign prostatic hyperplasia) Assessment/Plan renal function improving d/w surgeon for possible debridement or amputation Echo shoed previously 55% EF avoid nephrotoxic sliding scale prbc times one today Subjective ROS Limited/Unobtainable: No Constitutional: Reports: no symptoms HEENT: Repors: no symptoms Allergies: Coded Allergies: No Known Allergies (Unverified , 04/25/17) Objective Last 24 Hour Vital Signs Date Time Temp Pulse Resp B/P (MAP) Pulse Ox O2 Delivery O2 Flow Rate FiO2 06/03/17 11:52 97.8 82 20 111/63 92 Room Air 06/03/17 09:00 87 106/64 06/03/17 09:00 87 106/64 06/03/17 08:57 97.9 06/03/17 08:26 87 106/64 06/03/17 08:00 97.0 87 18 106/58 96 Room Air 06/03/17 07:46 Room Air 21 06/03/17 07:46 94 Room Air 21 06/03/17 07:45 99 16 Room Air 21 06/03/17 04:00 66 18 141/64 100 Room Air 06/03/17 00:00 97.9 75 17 138/69 98 Room Air 06/02/17 21:00 75 140/80 06/02/17 20:00 98.0 82 18 143/81 96 Room Air 06/02/17 19:30 96 Room Air 21 06/02/17 19:30 61 16 Room Air 21 06/02/17 19:30 Room Air 21 06/02/17 16:00 97.6 71 19 152/70 97 Room Air Intake and Output 06/03/17 06/04/17 19:00 07:00 Intake Total 540 ml Output Total 350 ml Balance 190 ml Intake Oral 240 ml IV Total 300 ml Output Urine Total 350 ml # Bowel Movements 3 General Appearance: WD/WN HEENT: normocephalic Respiratory/Chest: chest wall non-tender, lungs clear Cardiovascular: normal peripheral pulses, normal rate Laboratory Tests 06/03/17 05:50: White Blood Count 12.5H, Red Blood Count 2.74L, Hemoglobin 8.1L, Hematocrit 24.8L, Mean Corpuscular Volume 91, Mean Corpuscular Hemoglobin 29.5, Mean Corpuscular Hemoglobin Concent 32.6, Red Cell Distribution Width 15.3H, Platelet Count 309, Mean Platelet Volume 7.8, Neutrophils (%) (Auto) 76.9H, Lymphocytes (%) (Auto) 11.9L, Monocytes (%) (Auto) 8.3, Eosinophils (%) (Auto) 2.2, Basophils (%) (Auto) 0.8, Sodium Level 139, Potassium Level 3.9, Chloride Level 104, Carbon Dioxide Level 20, Anion Gap 15, Blood Urea Nitrogen 28H, Creatinine 2.1H, Estimat Glomerular Filtration Rate 38.5, Glucose Level 73#L, Calcium Level 8.7, C-Reactive Protein, Quantitative 6.1H, Random Vancomycin Level 15.7 Current Medications Medications (Trade) Dose Ordered Sig/Dragan Route PRN Reason Start Time Stop Time Status Last Admin Dose Admin Acetaminophen (Tylenol) 650 mg Q4H PRN ORAL fever 06/02/17 17:00 06/29/17 16:59 Albuterol/ Ipratropium (DuoNeb 0.5-3(2.5)mg/3ml) 3 ml Q4H PRN HHN Shortness of Breath 06/02/17 17:00 06/07/17 16:59 Amlodipine Besylate (Norvasc) 2.5 mg DAILY ORAL 06/03/17 09:00 07/03/17 08:59 Apixaban (Eliquis) 2.5 mg BID ORAL 06/02/17 18:00 07/02/17 17:59 06/03/17 08:25 Atorvastatin Calcium (Lipitor) 80 mg BEDTIME ORAL 06/02/17 21:00 06/30/17 20:59 06/02/17 21:00 Carvedilol (Coreg) 6.25 mg EVERY 12 HOURS ORAL 06/02/17 21:00 07/02/17 20:59 06/03/17 08:26 Clonidine HCl (Catapres) 0.1 mg Q4H PRN ORAL sbp more than 160 06/02/17 17:00 07/02/17 16:59 Dextrose (Dextrose 50%) STAT PRN IV Hypoglycemia 06/02/17 17:00 07/02/17 16:59 Gabapentin (Neurontin) 300 mg BEDTIME ORAL 06/02/17 21:00 07/02/17 20:59 06/02/17 21:00 Insulin Aspart (NovoLOG) BEFORE MEALS AND HS SUBQ 06/02/17 17:30 06/30/17 17:29 06/02/17 21:00 Insulin Aspart (NovoLOG) 6 units NOVOTIAC SUBQ 06/03/17 11:50 07/03/17 11:49 Insulin Detemir (Levemir) 15 units BEDTIME SUBQ 06/03/17 21:00 07/03/17 20:59 Lansoprazole (Prevacid) 30 mg DAILY ORAL 06/03/17 09:00 06/30/17 09:44 06/03/17 10:42 Morphine Sulfate (Morphine Sulfate) 2 mg Q4H PRN IVP severe pain 7-10 06/02/17 17:00 06/09/17 16:59 06/03/17 08:27 Nifedipine (Procardia XL) 60 mg DAILY ORAL 06/03/17 09:00 06/30/17 09:44 Nitroglycerin (Ntg) 0.4 mg Q5M X 3 DOSES PRN SL Prn Chest Pain 06/02/17 17:00 06/29/17 16:59 Ondansetron HCl (Zofran) 4 mg Q6H PRN IVP Nausea & Vomiting 06/02/17 17:00 06/29/17 16:59 Piperacillin Sod/ Tazobactam Sod 3.375 gm/Sodium Chloride 110 ml @ 27.5 mls/hr Q8H IVPB 06/02/17 20:00 06/07/17 03:59 06/03/17 04:00 Polyethylene Glycol (Miralax) 17 gm HSPRN PRN ORAL Constipation 06/02/17 17:00 06/29/17 16:59 Sodium Chloride 1,000 ml @ 100 mls/hr Q10H IVLG 06/02/17 17:30 06/30/17 17:29 06/03/17 01:54 Tamsulosin HCl (Flomax) 0.4 mg Q12HR ORAL 06/02/17 21:00 06/30/17 20:59 06/03/17 08:25 Temazepam (Restoril) 15 mg HSPRN PRN ORAL Insomnia 06/02/17 17:00 06/06/17 16:59 Vancomycin HCl (Vanco rx to dose) 1 ea DAILY PRN MISC Per rx protocol 06/03/17 09:00 06/29/17 21:59 Vancomycin/Sodium Chloride 250 ml @ 167.007 mls/hr Q24H IVPB 06/03/17 10:00 06/08/17 09:59 06/03/17 10:43 BRIAN HERNANDEZ Jun 03, 2017 12:24
[2017-06-03 15:46] VITALS: BP 118/71
--- NOTE | 2017-06-03 16:48 | Internal Med Progress Note ---
Subjective Date of Service: Jun 03, 2017 Physician Name Felton Smalls Attending Physician Bruno Serrato MD Current Medications Medications (Trade) Dose Ordered Sig/Dragan Route PRN Reason Start Time Stop Time Status Last Admin Dose Admin Acetaminophen (Tylenol) 650 mg Q4H PRN ORAL fever 06/02/17 17:00 06/29/17 16:59 Albuterol/ Ipratropium (DuoNeb 0.5-3(2.5)mg/3ml) 3 ml Q4H PRN HHN Shortness of Breath 06/02/17 17:00 06/07/17 16:59 Amlodipine Besylate (Norvasc) 2.5 mg DAILY ORAL 06/03/17 09:00 07/03/17 08:59 Apixaban (Eliquis) 2.5 mg BID ORAL 06/02/17 18:00 07/02/17 17:59 06/03/17 08:25 Atorvastatin Calcium (Lipitor) 80 mg BEDTIME ORAL 06/02/17 21:00 06/30/17 20:59 06/02/17 21:00 Carvedilol (Coreg) 6.25 mg EVERY 12 HOURS ORAL 06/02/17 21:00 07/02/17 20:59 06/03/17 08:26 Clonidine HCl (Catapres) 0.1 mg Q4H PRN ORAL sbp more than 160 06/02/17 17:00 07/02/17 16:59 Dextrose (Dextrose 50%) STAT PRN IV Hypoglycemia 06/02/17 17:00 07/02/17 16:59 Gabapentin (Neurontin) 300 mg BEDTIME ORAL 06/02/17 21:00 07/02/17 20:59 06/02/17 21:00 Insulin Aspart (NovoLOG) BEFORE MEALS AND HS SUBQ 06/02/17 17:30 06/30/17 17:29 06/03/17 12:30 Insulin Aspart (NovoLOG) 6 units NOVOTIAC SUBQ 06/03/17 11:50 07/03/17 11:49 06/03/17 12:29 Insulin Detemir (Levemir) 15 units BEDTIME SUBQ 06/03/17 21:00 07/03/17 20:59 Lansoprazole (Prevacid) 30 mg DAILY ORAL 06/03/17 09:00 06/30/17 09:44 06/03/17 10:42 Morphine Sulfate (Morphine Sulfate) 2 mg Q4H PRN IVP severe pain 7-10 06/02/17 17:00 06/09/17 16:59 06/03/17 14:47 Nifedipine (Procardia XL) 60 mg DAILY ORAL 06/03/17 09:00 06/30/17 09:44 Nitroglycerin (Ntg) 0.4 mg Q5M X 3 DOSES PRN SL Prn Chest Pain 06/02/17 17:00 06/29/17 16:59 Ondansetron HCl (Zofran) 4 mg Q6H PRN IVP Nausea & Vomiting 06/02/17 17:00 06/29/17 16:59 Piperacillin Sod/ Tazobactam Sod 3.375 gm/Sodium Chloride 110 ml @ 27.5 mls/hr Q8H IVPB 06/02/17 20:00 06/07/17 03:59 06/03/17 12:47 Polyethylene Glycol (Miralax) 17 gm HSPRN PRN ORAL Constipation 06/02/17 17:00 06/29/17 16:59 Sodium Chloride 1,000 ml @ 100 mls/hr Q10H IVLG 06/02/17 17:30 06/30/17 17:29 06/03/17 12:43 Tamsulosin HCl (Flomax) 0.4 mg Q12HR ORAL 06/02/17 21:00 06/30/17 20:59 06/03/17 08:25 Temazepam (Restoril) 15 mg HSPRN PRN ORAL Insomnia 06/02/17 17:00 06/06/17 16:59 Vancomycin HCl (Vanco rx to dose) 1 ea DAILY PRN MISC Per rx protocol 06/03/17 09:00 06/29/17 21:59 Vancomycin/Sodium Chloride 250 ml @ 167.007 mls/hr Q24H IVPB 06/03/17 10:00 06/08/17 09:59 06/03/17 10:43 Allergies: Coded Allergies: No Known Allergies (Unverified , 04/25/17) ROS Limited/Unobtainable: No Constitutional: Reports: no symptoms HEENT: Reports: no symptoms Cardiovascular: Reports: no symptoms Respiratory: Reports: no symptoms Gastrointestinal/Abdominal: Reports: no symptoms Genitourinary: Reports: no symptoms Neurologic/Psychiatric: Reports: no symptoms Subjective 66 YO M admitted with uncontroled diabetes and BKA pain. Cover for Int Med-Dr Serrato. Objective Last Vital Signs Date Time Temp Pulse Resp B/P (MAP) Pulse Ox O2 Delivery O2 Flow Rate FiO2 06/03/17 15:46 97.9 89 20 118/71 93 Room Air 06/03/17 07:46 21 Laboratory Tests Test 06/03/17 05:50 White Blood Count 12.5 K/UL (4.8-10.8) H Red Blood Count 2.74 M/UL (4.70-6.10) L Hemoglobin 8.1 G/DL (14.2-18.0) L Hematocrit 24.8 % (42.0-52.0) L Mean Corpuscular Volume 91 FL (80-99) Mean Corpuscular Hemoglobin 29.5 PG (27.0-31.0) Mean Corpuscular Hemoglobin Concent 32.6 G/DL (32.0-36.0) Red Cell Distribution Width 15.3 % (11.6-14.8) H Platelet Count 309 K/UL (150-450) Mean Platelet Volume 7.8 FL (6.5-10.1) Neutrophils (%) (Auto) 76.9 % (45.0-75.0) H Lymphocytes (%) (Auto) 11.9 % (20.0-45.0) L Monocytes (%) (Auto) 8.3 % (1.0-10.0) Eosinophils (%) (Auto) 2.2 % (0.0-3.0) Basophils (%) (Auto) 0.8 % (0.0-2.0) Sodium Level 139 mEQ/L (135-145) Potassium Level 3.9 mEQ/L (3.4-4.9) Chloride Level 104 mEQ/L (98-107) Carbon Dioxide Level 20 mEQ/L (20-30) Anion Gap 15 (5-15) Blood Urea Nitrogen 28 mg/dL (7-23) H Creatinine 2.1 mg/dL (0.7-1.2) H Estimat Glomerular Filtration Rate 38.5 mL/min (>60) Glucose Level 73 mg/dL (74-106) #L Calcium Level 8.7 mg/dL (8.6-10.2) C-Reactive Protein, Quantitative 6.1 mg/dL (< 0.5) H Random Vancomycin Level 15.7 ug/mL Intake and Output 06/03/17 06/04/17 19:00 07:00 Intake Total 1185.0 ml Output Total 350 ml Balance 835.0 ml Intake Oral 480 ml IV Total 705.0 ml Output Urine Total 350 ml # Voids 2 # Bowel Movements 5 Objective General Appearance: alert, mild distress, thin EENT: PERRL/EOMI, normal ENT inspection Neck: non-tender, normal alignment, supple Cardiovascular: normal peripheral pulses, normal rate, regular rhythm, no gallop/murmur, no JVD Respiratory/Chest: chest wall non-tender, lungs clear, normal breath sounds, no respiratory distress, no accessory muscle use Abdomen: normal bowel sounds, non tender, soft, no organomegaly, no mass Extremities: other - right BKA 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 (2) Diabetes mellitus type II, uncontrolled Assessment & Plan: Continue novolog and levemir per endocrinology. See Endocrinology consult. (3) Right BKA infection Assessment & Plan: See ID note. Continue Zosyn. Wound care. (4) Syncope (5) HTN (hypertension) Assessment & Plan: Continue Procardia (6) Hypercholesteremia Assessment & Plan: continue lipitor Status: progressing FELTON SMALLS Jun 03, 2017 16:48
--- NOTE | 2017-06-03 17:29 | General Progress Note ---
Assessment/Plan Assessment/Plan ASSESSMENT AND PLAN: 1. Anemia secondary to chronic disease. Anemia workup has been reviewed, consistent with anemia of chronic disease. --> pt is to receive one unit of blood, keep hgb above 8 2. Decreased hemoglobin and hematocrit. Rule out gastrointestinal bleed. Occult blood is negative. 3. Acute kidney injury, mild hydronephrosis with history of bladder outlet obstruction. 4. Diabetes mellitus. Continue to better control diabetes mellitus. 5. Followup with nephrology team. 6. Right below-knee amputation osteomyelitis. will need above knee amputation Subjective Date patient seen: Jun 03, 2017 ROS Limited/Unobtainable: Yes Allergies: Coded Allergies: No Known Allergies (Unverified , 04/25/17) Subjective to receive tranfusion Objective Last 24 Hour Vital Signs Date Time Temp Pulse Resp B/P (MAP) Pulse Ox O2 Delivery O2 Flow Rate FiO2 06/03/17 15:46 97.9 89 20 118/71 93 Room Air 06/03/17 15:17 97.8 06/03/17 11:52 97.8 82 20 111/63 92 Room Air 06/03/17 09:00 87 106/64 06/03/17 09:00 87 106/64 06/03/17 08:26 87 106/64 06/03/17 08:00 97.0 87 18 106/58 96 Room Air 06/03/17 07:46 Room Air 21 06/03/17 07:46 94 Room Air 21 06/03/17 07:45 99 16 Room Air 21 06/03/17 04:00 66 18 141/64 100 Room Air 06/03/17 00:00 97.9 75 17 138/69 98 Room Air 06/02/17 21:00 75 140/80 06/02/17 20:00 98.0 82 18 143/81 96 Room Air 06/02/17 19:30 96 Room Air 21 06/02/17 19:30 61 16 Room Air 21 06/02/17 19:30 Room Air 21 Intake and Output 06/03/17 06/04/17 19:00 07:00 Intake Total 1185.0 ml Output Total 350 ml Balance 835.0 ml Intake Oral 480 ml IV Total 705.0 ml Output Urine Total 350 ml # Voids 2 # Bowel Movements 5 Laboratory Tests 06/03/17 05:50: White Blood Count 12.5H, Red Blood Count 2.74L, Hemoglobin 8.1L, Hematocrit 24.8L, Mean Corpuscular Volume 91, Mean Corpuscular Hemoglobin 29.5, Mean Corpuscular Hemoglobin Concent 32.6, Red Cell Distribution Width 15.3H, Platelet Count 309, Mean Platelet Volume 7.8, Neutrophils (%) (Auto) 76.9H, Lymphocytes (%) (Auto) 11.9L, Monocytes (%) (Auto) 8.3, Eosinophils (%) (Auto) 2.2, Basophils (%) (Auto) 0.8, Sodium Level 139, Potassium Level 3.9, Chloride Level 104, Carbon Dioxide Level 20, Anion Gap 15, Blood Urea Nitrogen 28H, Creatinine 2.1H, Estimat Glomerular Filtration Rate 38.5, Glucose Level 73#L, Calcium Level 8.7, C-Reactive Protein, Quantitative 6.1H, Random Vancomycin Level 15.7 Height (Feet): 6 Height (Inches): 2.00 Weight (Pounds): 112 General Appearance: no apparent distress EENT: normal ENT inspection Neck: normal alignment Abdomen: normal bowel sounds Edema: trace edema 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
--- NOTE | 2017-06-03 18:14 | Cardiac Electrophysiology PN ---
Assessment/Plan Assessment/Plan 1. Paroxysmal atrial fibrillation, currently in sinus rhythm On Coreg and Eliquis. 2. Hypertension, Procardia XL 60 mg daily.DC Norvasc. 3. Hyperlipidemia, on Lipitor. 4. Status post right [id number] amputation and infection at the site, the patient on IV antibiotic per Infectious Diseases with vancomycin and Zosyn.May need higher level amputation. DW RN Subjective Subjective Comfortable in NAD. No chest pain or SOB. Objective Last 24 Hour Vital Signs Date Time Temp Pulse Resp B/P (MAP) Pulse Ox O2 Delivery O2 Flow Rate FiO2 06/03/17 15:46 97.9 89 20 118/71 93 Room Air 06/03/17 15:17 97.8 06/03/17 11:52 97.8 82 20 111/63 92 Room Air 06/03/17 09:00 87 106/64 06/03/17 09:00 87 106/64 06/03/17 08:26 87 106/64 06/03/17 08:00 97.0 87 18 106/58 96 Room Air 06/03/17 07:46 Room Air 21 06/03/17 07:46 94 Room Air 21 06/03/17 07:45 99 16 Room Air 21 06/03/17 04:00 66 18 141/64 100 Room Air 06/03/17 00:00 97.9 75 17 138/69 98 Room Air 06/02/17 21:00 75 140/80 06/02/17 20:00 98.0 82 18 143/81 96 Room Air 06/02/17 19:30 96 Room Air 21 06/02/17 19:30 61 16 Room Air 21 06/02/17 19:30 Room Air 21 Intake and Output 06/03/17 06/04/17 19:00 07:00 Intake Total 1185.0 ml Output Total 350 ml Balance 835.0 ml Intake Oral 480 ml IV Total 705.0 ml Output Urine Total 350 ml # Voids 2 # Bowel Movements 5 Laboratory Tests Test 06/03/17 05:50 White Blood Count 12.5 K/UL (4.8-10.8) H Red Blood Count 2.74 M/UL (4.70-6.10) L Hemoglobin 8.1 G/DL (14.2-18.0) L Hematocrit 24.8 % (42.0-52.0) L Mean Corpuscular Volume 91 FL (80-99) Mean Corpuscular Hemoglobin 29.5 PG (27.0-31.0) Mean Corpuscular Hemoglobin Concent 32.6 G/DL (32.0-36.0) Red Cell Distribution Width 15.3 % (11.6-14.8) H Platelet Count 309 K/UL (150-450) Mean Platelet Volume 7.8 FL (6.5-10.1) Neutrophils (%) (Auto) 76.9 % (45.0-75.0) H Lymphocytes (%) (Auto) 11.9 % (20.0-45.0) L Monocytes (%) (Auto) 8.3 % (1.0-10.0) Eosinophils (%) (Auto) 2.2 % (0.0-3.0) Basophils (%) (Auto) 0.8 % (0.0-2.0) Sodium Level 139 mEQ/L (135-145) Potassium Level 3.9 mEQ/L (3.4-4.9) Chloride Level 104 mEQ/L (98-107) Carbon Dioxide Level 20 mEQ/L (20-30) Anion Gap 15 (5-15) Blood Urea Nitrogen 28 mg/dL (7-23) H Creatinine 2.1 mg/dL (0.7-1.2) H Estimat Glomerular Filtration Rate 38.5 mL/min (>60) Glucose Level 73 mg/dL (74-106) #L Calcium Level 8.7 mg/dL (8.6-10.2) C-Reactive Protein, Quantitative 6.1 mg/dL (< 0.5) H Random Vancomycin Level 15.7 ug/mL Objective HEAD AND NECK: Showed no JVD or carotid bruits. LUNGS: Clear. CARDIOVASCULAR: Shows regular S1 and S2 with no gallop. ABDOMEN: Soft. Extremities: Status post right [id number] amputation covered with dressing. MADI MAYBERRY Jun 03, 2017 18:14
--- NOTE | 2017-06-03 19:30 | Infectious Diseases Prog Note ---
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 Ceftriaxone, levo/cipro, Bactrim, Zosyn), +4 E. cloace (S. Ceftriaxone, levo/Cipro, Zosyn; R bactrim); possible that these represents colonizer as wound cx was superficial and likely pathogens could still be Strep sp and MSSA. -s/p admission in [facility] in March for stump infection s/p 4 weeks of PO abx (pt unsure of abx) -06/03 ESR 116, CRP 6.1 Leukocytosis, mild- worsening -Bcx NTD Pyuria/Bacteriuria -u/a WBC 5-10, nit +, leuk +3; ucx >100K Serratia marcenses (S. CTX, zosy, Cipro, bactrim) NOHELIA on CKD, improving -renal U/s: Mild right hydronephrosis.Left kidney is normal. No left hydronephrosis. Left renal cyst is noted. Distended urinary bladder with wall thickening. There is layering debris within the urinary bladder. Cystitis cannot be excluded Hyperlipidemia. History of hypoglycemia. Hypertension. Diabetes. Atrial fibrillation. PLAN: -Transition current abx to IV Ceftriaxone (abx d4) -s/p 5d IV Vanco, 4d Zosyn 06/03 -upon discharge can consider PO levaquin for 6 weeks for OM as to avoid prolong B-lactam with above pathogens that have potential for ESBL inducibility -Podiatry or ortho evaluation; ?debridement -Trend WBC -Monitor CBC/ BMP, temperatures -Monitor cultures -obtain records at [facility] for recent admission (cx obtained,a bx given, etc) -wound care Discussed with RN Subjective Allergies: Coded Allergies: No Known Allergies (Unverified , 04/25/17) Subjective afebrile VSS at RA worsening leukocytosis Bcx NTD wound cx growing grew Serratia and Enterobacter Mri confirms acute OM Objective Vital Signs Last 24 Hour Vital Signs Date Time Temp Pulse Resp B/P (MAP) Pulse Ox O2 Delivery O2 Flow Rate FiO2 06/03/17 15:46 97.9 89 20 118/71 93 Room Air 06/03/17 15:17 97.8 06/03/17 11:52 97.8 82 20 111/63 92 Room Air 06/03/17 09:00 87 106/64 06/03/17 09:00 87 106/64 06/03/17 08:26 87 106/64 06/03/17 08:00 97.0 87 18 106/58 96 Room Air 06/03/17 07:46 Room Air 21 06/03/17 07:46 94 Room Air 21 06/03/17 07:45 99 16 Room Air 06/03/17 04:00 66 18 141/64 100 Room Air 06/03/17 00:00 97.9 75 17 138/69 98 Room Air 06/02/17 21:00 75 140/80 06/02/17 20:00 98.0 82 18 143/81 96 Room Air 06/02/17 19:30 96 Room Air 06/02/17 19:30 61 16 Room Air 06/02/17 19:30 Room Air 21 Height (Feet): 6 Height (Inches): 2.00 Weight (Pounds): 112 Objective HEENT: No pale conjunctivae. No icterus. NECK: No lymphadenopathy. CHEST: Clear. HEART: S1 and S2. ABDOMEN: Soft and nontender. EXTREMITIES: Right BKA stump has open wound wit probing to bone and foul smellig odor, no purulence discharge, no surroudign skin cellulitis. NEUROLOGIC: Awake and alert. reviewed Laboratory Tests Test 06/03/17 05:50 White Blood Count 12.5 K/UL (4.8-10.8) H Red Blood Count 2.74 M/UL (4.70-6.10) L Hemoglobin 8.1 G/DL (14.2-18.0) L Hematocrit 24.8 % (42.0-52.0) L Mean Corpuscular Volume 91 FL (80-99) Mean Corpuscular Hemoglobin 29.5 PG (27.0-31.0) Mean Corpuscular Hemoglobin Concent 32.6 G/DL (32.0-36.0) Red Cell Distribution Width 15.3 % (11.6-14.8) H Platelet Count 309 K/UL (150-450) Mean Platelet Volume 7.8 FL (6.5-10.1) Neutrophils (%) (Auto) 76.9 % (45.0-75.0) H Lymphocytes (%) (Auto) 11.9 % (20.0-45.0) L Monocytes (%) (Auto) 8.3 % (1.0-10.0) Eosinophils (%) (Auto) 2.2 % (0.0-3.0) Basophils (%) (Auto) 0.8 % (0.0-2.0) Sodium Level 139 mEQ/L (135-145) Potassium Level 3.9 mEQ/L (3.4-4.9) Chloride Level 104 mEQ/L (98-107) Carbon Dioxide Level 20 mEQ/L (20-30) Anion Gap 15 (5-15) Blood Urea Nitrogen 28 mg/dL (7-23) H Creatinine 2.1 mg/dL (0.7-1.2) H Estimat Glomerular Filtration Rate 38.5 mL/min (>60) Glucose Level 73 mg/dL (74-106) #L Calcium Level 8.7 mg/dL (8.6-10.2) C-Reactive Protein, Quantitative 6.1 mg/dL (< 0.5) H Random Vancomycin Level 15.7 ug/mL Current Medications Medications (Trade) Dose Ordered Sig/Dragan Route PRN Reason Start Time Stop Time Status Last Admin Dose Admin Acetaminophen (Tylenol) 650 mg Q4H PRN ORAL fever 06/02/17 17:00 06/29/17 16:59 Albuterol/ Ipratropium (DuoNeb 0.5-3(2.5)mg/3ml) 3 ml Q4H PRN HHN Shortness of Breath 06/02/17 17:00 06/07/17 16:59 Apixaban (Eliquis) 2.5 mg BID ORAL 06/02/17 18:00 07/02/17 17:59 06/03/17 17:19 Atorvastatin Calcium (Lipitor) 80 mg BEDTIME ORAL 06/02/17 21:00 06/30/17 20:59 06/02/17 21:00 Carvedilol (Coreg) 6.25 mg EVERY 12 HOURS ORAL 06/02/17 21:00 07/02/17 20:59 06/03/17 08:26 Clonidine HCl (Catapres) 0.1 mg Q4H PRN ORAL sbp more than 160 06/02/17 17:00 07/02/17 16:59 Dextrose (Dextrose 50%) STAT PRN IV Hypoglycemia 06/02/17 17:00 07/02/17 16:59 Gabapentin (Neurontin) 300 mg BEDTIME ORAL 06/02/17 21:00 07/02/17 20:59 06/02/17 21:00 Insulin Aspart (NovoLOG) BEFORE MEALS AND HS SUBQ 06/02/17 17:30 06/30/17 17:29 06/03/17 17:23 Insulin Aspart (NovoLOG) 6 units NOVOTIAC SUBQ 06/03/17 11:50 07/03/17 11:49 06/03/17 17:22 Insulin Detemir (Levemir) 15 units BEDTIME SUBQ 06/03/17 21:00 07/03/17 20:59 Lansoprazole (Prevacid) 30 mg DAILY ORAL 06/03/17 09:00 06/30/17 09:44 06/03/17 10:42 Morphine Sulfate (Morphine Sulfate) 2 mg Q4H PRN IVP severe pain 7-10 06/02/17 17:00 06/09/17 16:59 06/03/17 14:47 Nifedipine (Procardia XL) 60 mg DAILY ORAL 06/03/17 09:00 06/30/17 09:44 Nitroglycerin (Ntg) 0.4 mg Q5M X 3 DOSES PRN SL Prn Chest Pain 06/02/17 17:00 06/29/17 16:59 Ondansetron HCl (Zofran) 4 mg Q6H PRN IVP Nausea & Vomiting 06/02/17 17:00 06/29/17 16:59 Piperacillin Sod/ Tazobactam Sod 3.375 gm/Sodium Chloride 110 ml @ 27.5 mls/hr Q8H IVPB 06/02/17 20:00 06/07/17 03:59 06/03/17 12:47 Polyethylene Glycol (Miralax) 17 gm HSPRN PRN ORAL Constipation 06/02/17 17:00 06/29/17 16:59 Sodium Chloride 1,000 ml @ 100 mls/hr Q10H IVLG 06/02/17 17:30 06/30/17 17:29 06/03/17 12:43 Tamsulosin HCl (Flomax) 0.4 mg Q12HR ORAL 06/02/17 21:00 06/30/17 20:59 06/03/17 08:25 Temazepam (Restoril) 15 mg HSPRN PRN ORAL Insomnia 06/02/17 17:00 06/06/17 16:59 Vancomycin HCl (Vanco rx to dose) 1 ea DAILY PRN MISC Per rx protocol 06/03/17 09:00 06/29/17 21:59 Vancomycin/Sodium Chloride 250 ml @ 167.007 mls/hr Q24H IVPB 06/03/17 10:00 06/08/17 09:59 06/03/17 10:43 Liz Guevara M.D. Jun 03, 2017 19:30
[2017-06-03 20:06] VITALS: BP 131/77
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
[2017-06-03] MEDS: Atorvastatin 80mg tab ORAL SCH (20:57)
[2017-06-03] MEDS: cefTRIAXone 2 GM in D5W 110 ML IVPB SCH (21:00)
[2017-06-03] MEDS: Levemir Flexpen SUBQ SCH (21:04)
[2017-06-04] VITALS (7 sets, daily range): BP systolic 141–176; BP diastolic 64–94
[2017-06-04] MEDS: Morphine Sulfate 2mg/ml Inj IVP PRN ×4 (01:22→23:16)
[2017-06-04] MEDS: NovoLOG Insulin Flexpen SUBQ SCH ×7 (06:21→20:42)
[2017-06-04 06:58] LABS: BASOPHILS % (AUTO) 0.9 % (0.0-2.0); EOSINOPHILS % (AUTO) 2.1 % (0.0-3.0); LYMPHOCYTES % (AUTO) 15.6 % (20.0-45.0); MEAN CORPUSCULAR HEMOGLOBIN 30.2 PG (27.0-31.0); MEAN CORPUSCULAR HGB CONC 33.2 G/DL (32.0-36.0); MEAN CORPUSCULAR VOLUME 91 FL (80-99); MEAN PLATELET VOLUME 8.2 FL (6.5-10.1); MONOCYTES % (AUTO) 9.8 % (1.0-10.0); NEUTROPHILS % (AUTO) 71.7 % (45.0-75.0); PLATELET COUNT 289 K/UL (150-450); RED BLOOD COUNT 3.16 M/UL (4.70-6.10); RED CELL DISTRIBUTION WIDTH 14.6 % (11.6-14.8); WHITE BLOOD COUNT 12.2 K/UL (4.8-10.8)
[2017-06-04 07:27] LABS: CALCIUM 8.4 mg/dL (8.6-10.2); CREATININE 2.2 mg/dL (0.7-1.2); GLOMERULAR FILTRATION RATE 36.5 mL/min (>60); POTASSIUM 4.1 mEQ/L (3.4-4.9)
--- NOTE | 2017-06-04 07:44 | General Progress Note ---
Assessment/Plan Problem List: (1) Uncontrolled diabetes mellitus ICD Codes: E11.65 - Type 2 diabetes mellitus with hyperglycemia SNOMED: 979470944, 23414290 (2) HTN (hypertension) ICD Codes: I10 - Essential (primary) hypertension SNOMED: 14672418 (3) BPH (benign prostatic hyperplasia) ICD Codes: N40.0 - Benign prostatic hyperplasia without lower urinary tract symptoms SNOMED: 977809448, 076283546 (4) Right BKA infection ICD Codes: T87.43 - Infection of amputation stump, right lower extremity SNOMED: 580735378 (5) Renal failure ICD Codes: N19 - Unspecified kidney failure SNOMED: 86736746 Assessment/Plan continue to keep off Metformin due to NOHELIA glucose well controlled on current insulin regimen in the past 24 hours he received all scheduled insulin continue Levemir 15 units qhs continue Novolog 6 units ac tid + SSI Subjective ROS Limited/Unobtainable: No Allergies: Coded Allergies: No Known Allergies (Unverified , 04/25/17) Subjective doing fine having breakfast appetite is good Objective Last 24 Hour Vital Signs Date Time Temp Pulse Resp B/P (MAP) Pulse Ox O2 Delivery O2 Flow Rate FiO2 06/04/17 06:52 170/80 06/04/17 04:00 97.8 75 18 145/82 97 Room Air 06/04/17 01:54 176/94 06/04/17 01:45 98.0 76 19 176/94 98 Room Air 06/04/17 00:29 98.1 72 19 162/78 91 Room Air 06/03/17 20:57 95 131/77 06/03/17 20:06 98.5 95 18 131/77 93 Room Air 06/03/17 19:30 90 16 Room Air 06/03/17 15:46 97.9 89 20 118/71 93 Room Air 06/03/17 15:17 97.8 06/03/17 11:52 97.8 82 20 111/63 92 Room Air 06/03/17 09:00 87 106/64 06/03/17 09:00 87 106/64 06/03/17 08:26 87 106/64 06/03/17 08:00 97.0 87 18 106/58 96 Room Air 06/03/17 07:46 Room Air 06/03/17 07:46 94 Room Air 21 06/03/17 07:45 99 16 Room Air 21 Laboratory Tests 06/04/17 04:55: White Blood Count 12.2H, Red Blood Count 3.16L, Hemoglobin 9.5L, Hematocrit 28.7L, Mean Corpuscular Volume 91, Mean Corpuscular Hemoglobin 30.2, Mean Corpuscular Hemoglobin Concent 33.2, Red Cell Distribution Width 14.6, Platelet Count 289, Mean Platelet Volume 8.2, Neutrophils (%) (Auto) 71.7, Lymphocytes (% ) (Auto) 15.6L, Monocytes (%) (Auto) 9.8, Eosinophils (%) (Auto) 2.1, Basophils (%) (Auto) 0.9, Sodium Level 136, Potassium Level 4.1, Chloride Level 103, Carbon Dioxide Level 20, Anion Gap 13, Blood Urea Nitrogen 24H, Creatinine 2.2H , Estimat Glomerular Filtration Rate 36.5, Glucose Level 123H, Calcium Level 8.4L Height (Feet): 6 Height (Inches): 2.00 Weight (Pounds): 112 General Appearance: no apparent distress Neck: normal alignment Cardiovascular: normal rate Respiratory/Chest: decreased breath sounds Abdomen: normal bowel sounds Pelvis: normal external exam Extremities: other - right BKA Objective Current Medications Medications (Trade) Dose Ordered Sig/Dragan Route PRN Reason Start Time Stop Time Status Last Admin Dose Admin Acetaminophen (Tylenol) 650 mg Q4H PRN ORAL fever 06/02/17 17:00 06/29/17 16:59 Albuterol/ Ipratropium (DuoNeb 0.5-3(2.5)mg/3ml) 3 ml Q4H PRN HHN Shortness of Breath 06/02/17 17:00 06/07/17 16:59 Apixaban (Eliquis) 2.5 mg BID ORAL 06/02/17 18:00 07/02/17 17:59 06/03/17 17:19 Atorvastatin Calcium (Lipitor) 80 mg BEDTIME ORAL 06/02/17 21:00 06/30/17 20:59 06/03/17 20:57 Carvedilol (Coreg) 6.25 mg EVERY 12 HOURS ORAL 06/02/17 21:00 07/02/17 20:59 06/03/17 20:57 Ceftriaxone Sodium 2 gm/ Dextrose 110 ml @ 220 mls/hr Q24H IVPB 06/03/17 21:00 06/10/17 20:59 06/03/17 21:00 Clonidine HCl (Catapres) 0.1 mg Q4H PRN ORAL sbp more than 160 06/02/17 17:00 07/02/17 16:59 06/04/17 06:52 Dextrose (Dextrose 50%) STAT PRN IV Hypoglycemia 06/02/17 17:00 07/02/17 16:59 Gabapentin (Neurontin) 300 mg BEDTIME ORAL 06/02/17 21:00 07/02/17 20:59 06/03/17 20:57 Insulin Aspart (NovoLOG) BEFORE MEALS AND HS SUBQ 06/02/17 17:30 06/30/17 17:29 06/04/17 06:21 Insulin Aspart (NovoLOG) 6 units NOVOTIAC SUBQ 06/03/17 11:50 07/03/17 11:49 06/04/17 06:23 Insulin Detemir (Levemir) 15 units BEDTIME SUBQ 06/03/17 21:00 07/03/17 20:59 06/03/17 21:04 Lansoprazole (Prevacid) 30 mg DAILY ORAL 06/03/17 09:00 06/30/17 09:44 06/03/17 10:42 Morphine Sulfate (Morphine Sulfate) 2 mg Q4H PRN IVP severe pain 7-10 06/02/17 17:00 06/09/17 16:59 06/04/17 01:22 Nifedipine (Procardia XL) 60 mg DAILY ORAL 06/03/17 09:00 06/30/17 09:44 Nitroglycerin (Ntg) 0.4 mg Q5M X 3 DOSES PRN SL Prn Chest Pain 06/02/17 17:00 06/29/17 16:59 Ondansetron HCl (Zofran) 4 mg Q6H PRN IVP Nausea & Vomiting 06/02/17 17:00 06/29/17 16:59 Polyethylene Glycol (Miralax) 17 gm HSPRN PRN ORAL Constipation 06/02/17 17:00 06/29/17 16:59 Sodium Chloride 1,000 ml @ 100 mls/hr Q10H IVLG 06/02/17 17:30 06/30/17 17:29 06/03/17 23:39 Tamsulosin HCl (Flomax) 0.4 mg Q12HR ORAL 06/02/17 21:00 06/30/17 20:59 06/03/17 20:58 Temazepam (Restoril) 15 mg HSPRN PRN ORAL Insomnia 06/02/17 17:00 06/06/17 16:59 Item Value Date Time Bedside Blood Glucose 123 mg/dl H 06/04/17 0630 Bedside Blood Glucose 88 mg/dl 06/03/17 2104 Bedside Blood Glucose 134 mg/dl H 06/03/17 1723 Bedside Blood Glucose 157 mg/dl H 06/03/17 1230 CHRISTIAN MARIN Jun 04, 2017 07:44
[2017-06-04] MEDS: Tamsulosin 0.4mg cap ORAL SCH ×2 (08:38→20:40)
[2017-06-04] MEDS: Eliquis 2.5mg tablet ORAL SCH ×2 (08:38→17:22)
[2017-06-04] MEDS: Carvedilol 6.25mg Tab ORAL SCH ×2 (08:38→20:40)
--- NOTE | 2017-06-04 09:31 | General Progress Note ---
Progress Note Progress Note Surgery: Patient seen and examined at bedside. no acute events. doing well. Mild pain in right stump. Afebrile, HD stable, VSS, leukocytosis 12k Right stump with 2cm opening at anterior tibial edge of BKA. mild serous drainage from open wound but no purulent drainage. no underlying pockets/ abscess noted. MRI findings reviewed and does have acute osteo of anterior distal BKA stump. Microbiology reviewed and interesting. 66M s/p fall with trauma to right BKA stump which resulted in acute osteo. -no acute surgical debridement necessary as wound is clean -IV Abx for underlying osteo -awaiting arterial duplex studies. given severe peripheral vascular disease not sure if he will heal this distal BKA injury. may require revision or even AKA if limited perfusion to distal tissues. Artur De La oTrre Jun 04, 2017 09:31
--- NOTE | 2017-06-04 11:11 | Internal Med Progress Note ---
Subjective Date of Service: Jun 04, 2017 Physician Name Maryanne Smalls Attending Physician Bruno Serrato MD Current Medications Medications (Trade) Dose Ordered Sig/Dragan Route PRN Reason Start Time Stop Time Status Last Admin Dose Admin Acetaminophen (Tylenol) 650 mg Q4H PRN ORAL fever 06/02/17 17:00 06/29/17 16:59 Albuterol/ Ipratropium (DuoNeb 0.5-3(2.5)mg/3ml) 3 ml Q4H PRN HHN Shortness of Breath 06/02/17 17:00 06/07/17 16:59 Apixaban (Eliquis) 2.5 mg BID ORAL 06/02/17 18:00 07/02/17 17:59 06/04/17 08:38 Atorvastatin Calcium (Lipitor) 80 mg BEDTIME ORAL 06/02/17 21:00 06/30/17 20:59 06/03/17 20:57 Carvedilol (Coreg) 6.25 mg EVERY 12 HOURS ORAL 06/02/17 21:00 07/02/17 20:59 06/04/17 08:38 Ceftriaxone Sodium 2 gm/ Dextrose 110 ml @ 220 mls/hr Q24H IVPB 06/03/17 21:00 06/10/17 20:59 06/03/17 21:00 Clonidine HCl (Catapres) 0.1 mg Q4H PRN ORAL sbp more than 160 06/02/17 17:00 07/02/17 16:59 06/04/17 06:52 Dextrose (Dextrose 50%) STAT PRN IV Hypoglycemia 06/02/17 17:00 07/02/17 16:59 Gabapentin (Neurontin) 300 mg BEDTIME ORAL 06/02/17 21:00 07/02/17 20:59 06/03/17 20:57 Insulin Aspart (NovoLOG) BEFORE MEALS AND HS SUBQ 06/02/17 17:30 06/30/17 17:29 06/04/17 06:21 Insulin Aspart (NovoLOG) 6 units NOVOTIAC SUBQ 06/03/17 11:50 07/03/17 11:49 06/04/17 06:23 Insulin Detemir (Levemir) 15 units BEDTIME SUBQ 06/03/17 21:00 07/03/17 20:59 06/03/17 21:04 Lansoprazole (Prevacid) 30 mg DAILY ORAL 06/03/17 09:00 06/30/17 09:44 06/04/17 08:38 Morphine Sulfate (Morphine Sulfate) 2 mg Q4H PRN IVP severe pain 7-10 06/02/17 17:00 06/09/17 16:59 06/04/17 01:22 Nifedipine (Procardia XL) 60 mg DAILY ORAL 06/03/17 09:00 06/30/17 09:44 06/04/17 08:39 Nitroglycerin (Ntg) 0.4 mg Q5M X 3 DOSES PRN SL Prn Chest Pain 06/02/17 17:00 06/29/17 16:59 Ondansetron HCl (Zofran) 4 mg Q6H PRN IVP Nausea & Vomiting 06/02/17 17:00 06/29/17 16:59 Polyethylene Glycol (Miralax) 17 gm HSPRN PRN ORAL Constipation 06/02/17 17:00 06/29/17 16:59 Sodium Chloride 1,000 ml @ 100 mls/hr Q10H IVLG 06/02/17 17:30 06/30/17 17:29 06/03/17 23:39 Tamsulosin HCl (Flomax) 0.4 mg Q12HR ORAL 06/02/17 21:00 06/30/17 20:59 06/04/17 08:38 Temazepam (Restoril) 15 mg HSPRN PRN ORAL Insomnia 06/02/17 17:00 06/06/17 16:59 Allergies: Coded Allergies: No Known Allergies (Unverified , 04/25/17) ROS Limited/Unobtainable: No Constitutional: Reports: no symptoms HEENT: Reports: no symptoms Cardiovascular: Reports: no symptoms Respiratory: Reports: no symptoms Gastrointestinal/Abdominal: Reports: no symptoms Genitourinary: Reports: no symptoms Neurologic/Psychiatric: Reports: no symptoms Subjective 66 YO M admitted with uncontroled diabetes and BKA pain. Now osteomyelitis right BKA stump. Cover for Int Jonathan-Dr Serrato. Objective Last Vital Signs Date Time Temp Pulse Resp B/P (MAP) Pulse Ox O2 Delivery O2 Flow Rate FiO2 06/04/17 09:00 85 16 Room Air 21 06/04/17 08:39 150/76 06/04/17 08:00 97.7 97 Laboratory Tests Test 06/04/17 04:55 White Blood Count 12.2 K/UL (4.8-10.8) H Red Blood Count 3.16 M/UL (4.70-6.10) L Hemoglobin 9.5 G/DL (14.2-18.0) L Hematocrit 28.7 % (42.0-52.0) L Mean Corpuscular Volume 91 FL (80-99) Mean Corpuscular Hemoglobin 30.2 PG (27.0-31.0) Mean Corpuscular Hemoglobin Concent 33.2 G/DL (32.0-36.0) Red Cell Distribution Width 14.6 % (11.6-14.8) Platelet Count 289 K/UL (150-450) Mean Platelet Volume 8.2 FL (6.5-10.1) Neutrophils (%) (Auto) 71.7 % (45.0-75.0) Lymphocytes (%) (Auto) 15.6 % (20.0-45.0) L Monocytes (%) (Auto) 9.8 % (1.0-10.0) Eosinophils (%) (Auto) 2.1 % (0.0-3.0) Basophils (%) (Auto) 0.9 % (0.0-2.0) Sodium Level 136 mEQ/L (135-145) Potassium Level 4.1 mEQ/L (3.4-4.9) Chloride Level 103 mEQ/L (98-107) Carbon Dioxide Level 20 mEQ/L (20-30) Anion Gap 13 (5-15) Blood Urea Nitrogen 24 mg/dL (7-23) H Creatinine 2.2 mg/dL (0.7-1.2) H Estimat Glomerular Filtration Rate 36.5 mL/min (>60) Glucose Level 123 mg/dL (74-106) H Calcium Level 8.4 mg/dL (8.6-10.2) L Intake and Output 06/04/17 06/05/17 19:00 07:00 Intake Total 240 ml Output Total 300 ml Balance -60 ml Intake Oral 240 ml Output Urine Total 300 ml # Voids 1 # Bowel Movements 1 Objective General Appearance: alert, mild distress, thin EENT: PERRL/EOMI, normal ENT inspection Neck: non-tender, normal alignment, supple Cardiovascular: normal peripheral pulses, normal rate, regular rhythm, no gallop/murmur, no JVD Respiratory/Chest: chest wall non-tender, lungs clear, normal breath sounds, no respiratory distress, no accessory muscle use Abdomen: normal bowel sounds, non tender, soft, no organomegaly, no mass Extremities: other - right BKA Neurologic: color sprayer II-XII grossly normal, no motor/sensory deficits Skin: normal pigmentation, warm/dry Assessment/Plan Problem List: (1) Hypercholesteremia Assessment & Plan: continue lipitor (2) Atrial fibrillation Assessment & Plan: see cardiology note. (3) Diabetes mellitus type II, uncontrolled Assessment & Plan: Continue novolog and levemir per endocrinology. See Endocrinology consult. (4) Right BKA infection Assessment & Plan: See ID note. Continue Zosyn. Wound care. (5) Syncope (6) HTN (hypertension) Assessment & Plan: Continue Procardia (7) Osteomyelitis of right tibia Assessment & Plan: Continue antibiotic per ID. May require right Above the knee amputation per surgery-see note. Status: not improved MARYANNE SMALLS Jun 04, 2017 11:11
--- NOTE | 2017-06-04 11:35 | General Progress Note ---
Assessment/Plan Status: stable Status Narrative Cr 2.2 Assessment/Plan admitted for syncope Has DM OOC h/o A fib acute renal failure on CRI previous Cr 1.9 now 2.1 h/o bladder outlet obstruction) per AILYN in past Also due to DM and HTN, has 3+ Proteinuria anemia DM HTN R BKA stump wound BLE pain severe protein calorie malnutrition Urinary retention due to bladder out let Obstruction bladder outlet obstruction Plan: licensed professional counselor antibiotic vs Surgical intervention for Osteo BS control Optimize BS and BP status Avoid nephrotoxics Flomax BID Anemia crawford Subjective ROS Limited/Unobtainable: No Constitutional: Reports: malaise Allergies: Coded Allergies: No Known Allergies (Unverified , 04/25/17) Objective Last 24 Hour Vital Signs Date Time Temp Pulse Resp B/P (MAP) Pulse Ox O2 Delivery O2 Flow Rate FiO2 06/04/17 09:00 85 16 Room Air 21 06/04/17 08:39 74 150/76 06/04/17 08:38 74 150/76 06/04/17 08:00 97.7 74 20 150/76 97 Room Air 06/04/17 06:52 170/80 06/04/17 04:00 97.8 75 18 145/82 97 Room Air 06/04/17 01:54 176/94 06/04/17 01:45 98.0 76 19 176/94 98 Room Air 06/04/17 00:29 98.1 72 19 162/78 91 Room Air 06/03/17 20:57 95 131/77 06/03/17 20:06 98.5 95 18 131/77 93 Room Air 06/03/17 19:30 90 16 Room Air 21 06/03/17 15:46 97.9 89 20 118/71 93 Room Air 06/03/17 15:17 97.8 06/03/17 11:52 97.8 82 20 111/63 92 Room Air Intake and Output 06/04/17 06/05/17 19:00 07:00 Intake Total 240 ml Output Total 300 ml Balance -60 ml Intake Oral 240 ml Output Urine Total 300 ml # Voids 1 # Bowel Movements 1 Laboratory Tests 06/04/17 04:55: White Blood Count 12.2H, Red Blood Count 3.16L, Hemoglobin 9.5L, Hematocrit 28.7L, Mean Corpuscular Volume 91, Mean Corpuscular Hemoglobin 30.2, Mean Corpuscular Hemoglobin Concent 33.2, Red Cell Distribution Width 14.6, Platelet Count 289, Mean Platelet Volume 8.2, Neutrophils (%) (Auto) 71.7, Lymphocytes (% ) (Auto) 15.6L, Monocytes (%) (Auto) 9.8, Eosinophils (%) (Auto) 2.1, Basophils (%) (Auto) 0.9, Sodium Level 136, Potassium Level 4.1, Chloride Level 103, Carbon Dioxide Level 20, Anion Gap 13, Blood Urea Nitrogen 24H, Creatinine 2.2H , Estimat Glomerular Filtration Rate 36.5, Glucose Level 123H, Calcium Level 8.4L Height (Feet): 6 Height (Inches): 2.00 Weight (Pounds): 112 General Appearance: no apparent distress Objective no change in PE TYE TINAJERO Jun 04, 2017 11:35
--- NOTE | 2017-06-04 14:35 | Cardiac Electrophysiology PN ---
Assessment/Plan Assessment/Plan 1. Paroxysmal atrial fibrillation, currently in sinus rhythm On Coreg 6.25 bid and Eliquis. 2. Hypertension, Procardia XL 60 mg daily and Coreg 6.25 bid. 3. Hyperlipidemia, on Lipitor. 4. Status post right uqgzv-[id number] amputation and infection at the site, the patient on IV antibiotic per Infectious Diseases with vancomycin and Zosyn.May need higher level amputation. DW RN Subjective Subjective Comfortable in NAD. No chest pain or SOB.Awaiting reevaluation by Dr Burgess re extending the R BKA. Objective Last 24 Hour Vital Signs Date Time Temp Pulse Resp B/P (MAP) Pulse Ox O2 Delivery O2 Flow Rate FiO2 06/04/17 12:00 98.4 73 19 149/76 95 Room Air 06/04/17 09:00 85 16 Room Air 21 06/04/17 08:39 74 150/76 06/04/17 08:38 74 150/76 06/04/17 08:00 97.7 74 20 150/76 97 Room Air 06/04/17 06:52 170/80 06/04/17 04:00 97.8 75 18 145/82 97 Room Air 06/04/17 01:54 176/94 06/04/17 01:45 98.0 76 19 176/94 98 Room Air 06/04/17 00:29 98.1 72 19 162/78 91 Room Air 06/03/17 20:57 95 131/77 06/03/17 20:06 98.5 95 18 131/77 93 Room Air 06/03/17 19:30 90 16 Room Air 21 06/03/17 15:46 97.9 89 20 118/71 93 Room Air 06/03/17 15:17 97.8 Intake and Output 06/04/17 06/05/17 19:00 07:00 Intake Total 240 ml Output Total 300 ml Balance -60 ml Intake Oral 240 ml Output Urine Total 300 ml # Voids 1 # Bowel Movements 1 Laboratory Tests Test 06/04/17 04:55 White Blood Count 12.2 K/UL (4.8-10.8) H Red Blood Count 3.16 M/UL (4.70-6.10) L Hemoglobin 9.5 G/DL (14.2-18.0) L Hematocrit 28.7 % (42.0-52.0) L Mean Corpuscular Volume 91 FL (80-99) Mean Corpuscular Hemoglobin 30.2 PG (27.0-31.0) Mean Corpuscular Hemoglobin Concent 33.2 G/DL (32.0-36.0) Red Cell Distribution Width 14.6 % (11.6-14.8) Platelet Count 289 K/UL (150-450) Mean Platelet Volume 8.2 FL (6.5-10.1) Neutrophils (%) (Auto) 71.7 % (45.0-75.0) Lymphocytes (%) (Auto) 15.6 % (20.0-45.0) L Monocytes (%) (Auto) 9.8 % (1.0-10.0) Eosinophils (%) (Auto) 2.1 % (0.0-3.0) Basophils (%) (Auto) 0.9 % (0.0-2.0) Sodium Level 136 mEQ/L (135-145) Potassium Level 4.1 mEQ/L (3.4-4.9) Chloride Level 103 mEQ/L (98-107) Carbon Dioxide Level 20 mEQ/L (20-30) Anion Gap 13 (5-15) Blood Urea Nitrogen 24 mg/dL (7-23) H Creatinine 2.2 mg/dL (0.7-1.2) H Estimat Glomerular Filtration Rate 36.5 mL/min (>60) Glucose Level 123 mg/dL (74-106) H Calcium Level 8.4 mg/dL (8.6-10.2) L Objective HEAD AND NECK: Showed no JVD or carotid bruits. LUNGS: Clear. CARDIOVASCULAR: Shows regular S1 and S2 with no gallop. ABDOMEN: Soft. Extremities: Status post right [id number]-[id number] amputation MADI MAYBERRY Jun 04, 2017 14:34
--- NOTE | 2017-06-04 16:15 | General Progress Note ---
Assessment/Plan Assessment/Plan ASSESSMENT AND PLAN: 1. Anemia secondary to chronic disease. Anemia workup has been reviewed, consistent with anemia of chronic disease. --> pt has received blood transfusion, keep hgb above 8 2. Decreased hemoglobin and hematocrit. Rule out gastrointestinal bleed. Occult blood is negative. 3. Acute kidney injury, mild hydronephrosis with history of bladder outlet obstruction. 4. Diabetes mellitus. Continue to better control diabetes mellitus. 5. Followup with nephrology team. 6. Right below-knee amputation osteomyelitis. Surgery and ID following Subjective Constitutional: Reports: no symptoms HEENT: Reports: no symptoms Cardiovascular: Reports: no symptoms Respiratory: Reports: no symptoms Gastrointestinal/Abdominal: Reports: no symptoms Genitourinary: Reports: no symptoms Neurologic/Psychiatric: Reports: no symptoms Endocrine: Reports: no symptoms Hematologic/Lymphatic: Reports: anemia Allergies: Coded Allergies: No Known Allergies (Unverified , 04/25/17) Subjective s/p blood transfusion Objective Last 24 Hour Vital Signs Date Time Temp Pulse Resp B/P (MAP) Pulse Ox O2 Delivery O2 Flow Rate FiO2 06/04/17 12:00 98.4 73 19 149/76 95 Room Air 06/04/17 09:00 85 16 Room Air 21 06/04/17 08:39 74 150/76 06/04/17 08:38 74 150/76 06/04/17 08:00 97.7 74 20 150/76 97 Room Air 06/04/17 06:52 170/80 06/04/17 04:00 97.8 75 18 145/82 97 Room Air 06/04/17 01:54 176/94 06/04/17 01:45 98.0 76 19 176/94 98 Room Air 06/04/17 00:29 98.1 72 19 162/78 91 Room Air 06/03/17 20:57 95 131/77 06/03/17 20:06 98.5 95 18 131/77 93 Room Air 06/03/17 19:30 90 16 Room Air 21 Intake and Output 06/04/17 06/05/17 19:00 07:00 Intake Total 240 ml Output Total 300 ml Balance -60 ml Intake Oral 240 ml Output Urine Total 300 ml # Voids 1 # Bowel Movements 1 Laboratory Tests 06/04/17 04:55: White Blood Count 12.2H, Red Blood Count 3.16L, Hemoglobin 9.5L, Hematocrit 28.7L, Mean Corpuscular Volume 91, Mean Corpuscular Hemoglobin 30.2, Mean Corpuscular Hemoglobin Concent 33.2, Red Cell Distribution Width 14.6, Platelet Count 289, Mean Platelet Volume 8.2, Neutrophils (%) (Auto) 71.7, Lymphocytes (% ) (Auto) 15.6L, Monocytes (%) (Auto) 9.8, Eosinophils (%) (Auto) 2.1, Basophils (%) (Auto) 0.9, Sodium Level 136, Potassium Level 4.1, Chloride Level 103, Carbon Dioxide Level 20, Anion Gap 13, Blood Urea Nitrogen 24H, Creatinine 2.2H , Estimat Glomerular Filtration Rate 36.5, Glucose Level 123H, Calcium Level 8.4L Height (Feet): 6 Height (Inches): 2.00 Weight (Pounds): 112 General Appearance: no apparent distress EENT: PERRL/EOMI Neck: non-tender Cardiovascular: normal rate, regular rhythm Respiratory/Chest: no respiratory distress Abdomen: non tender 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
[2017-06-04] MEDS ORDERED: NS 500ML IV ONE (18:47)
[2017-06-04] MEDS ORDERED: D5 1/2NS 1000ml IV ONE (18:47)
[2017-06-04] MEDS ORDERED: Tubing IV Blood Pump IV ONE (18:47)
[2017-06-04] MEDS: cefTRIAXone 2 GM in D5W 110 ML IVPB SCH (20:39)
[2017-06-04] MEDS: Atorvastatin 80mg tab ORAL SCH (20:40)
[2017-06-04] MEDS: Levemir Flexpen SUBQ SCH (20:41)
--- NOTE | 2017-06-04 21:00 | Pulmonology Progress Note ---
Assessment/Plan Problems: (1) Syncope (2) Sepsis (3) Right BKA infection (4) HTN (hypertension) (5) Diabetes mellitus (6) Renal failure (7) BPH (benign prostatic hyperplasia) Assessment/Plan renal function improving d/w surgeon for possible debridement or amputation Echo shoed previously 55% EF avoid nephrotoxic sliding scale check electrolytes Subjective ROS Limited/Unobtainable: No Constitutional: Reports: no symptoms HEENT: Repors: no symptoms Respiratory: Reports: no symptoms Allergies: Coded Allergies: No Known Allergies (Unverified , 04/25/17) Objective Last 24 Hour Vital Signs Date Time Temp Pulse Resp B/P (MAP) Pulse Ox O2 Delivery O2 Flow Rate FiO2 06/04/17 20:40 64 141/64 06/04/17 20:07 97.9 64 19 141/64 97 Room Air 06/04/17 19:55 74 18 Room Air 21 06/04/17 16:00 98.7 72 20 154/73 96 Room Air 06/04/17 12:00 98.4 73 19 149/76 95 Room Air 06/04/17 09:00 85 16 Room Air 21 06/04/17 08:39 74 150/76 06/04/17 08:38 74 150/76 06/04/17 08:00 97.7 74 20 150/76 97 Room Air 06/04/17 06:52 170/80 06/04/17 04:00 97.8 75 18 145/82 97 Room Air 06/04/17 01:54 176/94 06/04/17 01:45 98.0 76 19 176/94 98 Room Air 06/04/17 00:29 98.1 72 19 162/78 91 Room Air Intake and Output 06/04/17 06/05/17 19:00 07:00 Intake Total 1270 ml Output Total 500 ml Balance 770 ml Intake Oral 720 ml IV Total 550 ml Output Urine Total 500 ml # Voids 2 # Bowel Movements 2 General Appearance: WD/WN HEENT: normocephalic Respiratory/Chest: chest wall non-tender, lungs clear Cardiovascular: normal peripheral pulses, normal rate Abdomen: normal bowel sounds, soft, non tender Skin: no rash Laboratory Tests 06/04/17 04:55: White Blood Count 12.2H, Red Blood Count 3.16L, Hemoglobin 9.5L, Hematocrit 28.7L, Mean Corpuscular Volume 91, Mean Corpuscular Hemoglobin 30.2, Mean Corpuscular Hemoglobin Concent 33.2, Red Cell Distribution Width 14.6, Platelet Count 289, Mean Platelet Volume 8.2, Neutrophils (%) (Auto) 71.7, Lymphocytes (% ) (Auto) 15.6L, Monocytes (%) (Auto) 9.8, Eosinophils (%) (Auto) 2.1, Basophils (%) (Auto) 0.9, Sodium Level 136, Potassium Level 4.1, Chloride Level 103, Carbon Dioxide Level 20, Anion Gap 13, Blood Urea Nitrogen 24H, Creatinine 2.2H , Estimat Glomerular Filtration Rate 36.5, Glucose Level 123H, Calcium Level 8.4L Current Medications Medications (Trade) Dose Ordered Sig/Dragan Route PRN Reason Start Time Stop Time Status Last Admin Dose Admin Acetaminophen (Tylenol) 650 mg Q4H PRN ORAL fever 06/02/17 17:00 06/29/17 16:59 Albuterol/ Ipratropium (DuoNeb 0.5-3(2.5)mg/3ml) 3 ml Q4H PRN HHN Shortness of Breath 06/02/17 17:00 06/07/17 16:59 Apixaban (Eliquis) 2.5 mg BID ORAL 06/02/17 18:00 07/02/17 17:59 06/04/17 17:22 Atorvastatin Calcium (Lipitor) 80 mg BEDTIME ORAL 06/02/17 21:00 06/30/17 20:59 06/04/17 20:40 Carvedilol (Coreg) 6.25 mg EVERY 12 HOURS ORAL 06/02/17 21:00 07/02/17 20:59 06/04/17 20:40 Ceftriaxone Sodium 2 gm/ Dextrose 110 ml @ 220 mls/hr Q24H IVPB 06/03/17 21:00 06/10/17 20:59 06/04/17 20:39 Clonidine HCl (Catapres) 0.1 mg Q4H PRN ORAL sbp more than 160 06/02/17 17:00 07/02/17 16:59 06/04/17 06:52 Dextrose (Dextrose 50%) STAT PRN IV Hypoglycemia 06/02/17 17:00 07/02/17 16:59 Gabapentin (Neurontin) 300 mg BEDTIME ORAL 06/02/17 21:00 07/02/17 20:59 06/04/17 20:40 Insulin Aspart (NovoLOG) BEFORE MEALS AND HS SUBQ 06/02/17 17:30 06/30/17 17:29 06/04/17 20:42 Insulin Aspart (NovoLOG) 6 units NOVOTIAC SUBQ 06/03/17 11:50 07/03/17 11:49 06/04/17 17:02 Insulin Detemir (Levemir) 15 units BEDTIME SUBQ 06/03/17 21:00 07/03/17 20:59 06/04/17 20:41 Lansoprazole (Prevacid) 30 mg DAILY ORAL 06/03/17 09:00 06/30/17 09:44 06/04/17 08:38 Morphine Sulfate (Morphine Sulfate) 2 mg Q4H PRN IVP severe pain 7-10 06/02/17 17:00 06/09/17 16:59 06/04/17 18:18 Nifedipine (Procardia XL) 60 mg DAILY ORAL 06/03/17 09:00 06/30/17 09:44 06/04/17 08:39 Nitroglycerin (Ntg) 0.4 mg Q5M X 3 DOSES PRN SL Prn Chest Pain 06/02/17 17:00 06/29/17 16:59 Ondansetron HCl (Zofran) 4 mg Q6H PRN IVP Nausea & Vomiting 06/02/17 17:00 06/29/17 16:59 Polyethylene Glycol (Miralax) 17 gm HSPRN PRN ORAL Constipation 06/02/17 17:00 06/29/17 16:59 Sodium Chloride 1,000 ml @ 100 mls/hr Q10H IVLG 06/02/17 17:30 06/30/17 17:29 06/04/17 20:40 Tamsulosin HCl (Flomax) 0.4 mg Q12HR ORAL 06/02/17 21:00 06/30/17 20:59 06/04/17 20:40 Temazepam (Restoril) 15 mg HSPRN PRN ORAL Insomnia 06/02/17 17:00 06/06/17 16:59 BRIAN HERNANDEZ Jun 04, 2017 21:00
--- NOTE | 2017-06-04 21:23 | Infectious Diseases Prog Note ---
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 Ceftriaxone, levo/cipro, Bactrim, Zosyn), +4 E. cloace (S. Ceftriaxone, levo/Cipro, Zosyn; R bactrim); possible that these represents colonizer as wound cx was superficial and likely pathogens could still be Strep sp and MSSA. -s/p admission in [facility] in March for stump infection s/p 4 weeks of PO abx (pt unsure of abx) -06/03 ESR 116, CRP 6.1 Leukocytosis, mild- persistent -Bcx NTD Pyuria/Bacteriuria -u/a WBC 5-10, nit +, leuk +3; ucx >100K Serratia marcenses (S. CTX, zosy, Cipro, bactrim) NOHELIA on CKD, improving -renal U/s: Mild right hydronephrosis.Left kidney is normal. No left hydronephrosis. Left renal cyst is noted. Distended urinary bladder with wall thickening. There is layering debris within the urinary bladder. Cystitis cannot be excluded Hyperlipidemia. History of hypoglycemia. Hypertension. Diabetes. Atrial fibrillation. PLAN: -Continue IV Ceftriaxone #2 (abx d#5) -s/p 5d IV Vanco, 4d Zosyn 06/03 -upon discharge can consider PO levaquin for 6 weeks for OM as to avoid prolong B-lactam with above pathogens that have potential for ESBL inducibility -awaiting arterial studies prior to surgical planning -Trend WBC -Monitor CBC/ BMP, temperatures -Monitor cultures -obtain records at [facility] for recent admission (cx obtained,a bx given, etc) -wound care Discussed with RN Subjective Allergies: Coded Allergies: No Known Allergies (Unverified , 04/25/17) Subjective afebrile VSS at RA worsening leukocytosis Bcx NTD wound cx growing grew Serratia and Enterobacter Mri confirms acute OM Objective Vital Signs Last 24 Hour Vital Signs Date Time Temp Pulse Resp B/P (MAP) Pulse Ox O2 Delivery O2 Flow Rate FiO2 06/04/17 20:40 64 141/64 06/04/17 20:07 97.9 64 19 141/64 97 Room Air 06/04/17 19:55 74 18 Room Air 21 06/04/17 16:00 98.7 72 20 154/73 96 Room Air 06/04/17 12:00 98.4 73 19 149/76 95 Room Air 06/04/17 09:00 85 16 Room Air 21 06/04/17 08:39 74 150/76 06/04/17 08:38 74 150/76 06/04/17 08:00 97.7 74 20 150/76 97 Room Air 06/04/17 06:52 170/80 06/04/17 04:00 97.8 75 18 145/82 97 Room Air 06/04/17 01:54 176/94 06/04/17 01:45 98.0 76 19 176/94 98 Room Air 06/04/17 00:29 98.1 72 19 162/78 91 Room Air Height (Feet): 6 Height (Inches): 2.00 Weight (Pounds): 112 Objective HEENT: No pale conjunctivae. No icterus. NECK: No lymphadenopathy. CHEST: Clear. HEART: S1 and S2. ABDOMEN: Soft and nontender. EXTREMITIES: Right BKA stump has open wound wit probing to bone and foul smellig odor, no purulence discharge, no surroudign skin cellulitis. NEUROLOGIC: Awake and alert. Laboratory Tests Test 06/04/17 04:55 White Blood Count 12.2 K/UL (4.8-10.8) H Red Blood Count 3.16 M/UL (4.70-6.10) L Hemoglobin 9.5 G/DL (14.2-18.0) L Hematocrit 28.7 % (42.0-52.0) L Mean Corpuscular Volume 91 FL (80-99) Mean Corpuscular Hemoglobin 30.2 PG (27.0-31.0) Mean Corpuscular Hemoglobin Concent 33.2 G/DL (32.0-36.0) Red Cell Distribution Width 14.6 % (11.6-14.8) Platelet Count 289 K/UL (150-450) Mean Platelet Volume 8.2 FL (6.5-10.1) Neutrophils (%) (Auto) 71.7 % (45.0-75.0) Lymphocytes (%) (Auto) 15.6 % (20.0-45.0) L Monocytes (%) (Auto) 9.8 % (1.0-10.0) Eosinophils (%) (Auto) 2.1 % (0.0-3.0) Basophils (%) (Auto) 0.9 % (0.0-2.0) Sodium Level 136 mEQ/L (135-145) Potassium Level 4.1 mEQ/L (3.4-4.9) Chloride Level 103 mEQ/L (98-107) Carbon Dioxide Level 20 mEQ/L (20-30) Anion Gap 13 (5-15) Blood Urea Nitrogen 24 mg/dL (7-23) H Creatinine 2.2 mg/dL (0.7-1.2) H Estimat Glomerular Filtration Rate 36.5 mL/min (>60) Glucose Level 123 mg/dL (74-106) H Calcium Level 8.4 mg/dL (8.6-10.2) L Current Medications Medications (Trade) Dose Ordered Sig/Dragan Route PRN Reason Start Time Stop Time Status Last Admin Dose Admin Acetaminophen (Tylenol) 650 mg Q4H PRN ORAL fever 06/02/17 17:00 06/29/17 16:59 Albuterol/ Ipratropium (DuoNeb 0.5-3(2.5)mg/3ml) 3 ml Q4H PRN HHN Shortness of Breath 06/02/17 17:00 06/07/17 16:59 Apixaban (Eliquis) 2.5 mg BID ORAL 06/02/17 18:00 07/02/17 17:59 06/04/17 17:22 Atorvastatin Calcium (Lipitor) 80 mg BEDTIME ORAL 06/02/17 21:00 06/30/17 20:59 06/04/17 20:40 Carvedilol (Coreg) 6.25 mg EVERY 12 HOURS ORAL 06/02/17 21:00 07/02/17 20:59 06/04/17 20:40 Ceftriaxone Sodium 2 gm/ Dextrose 110 ml @ 220 mls/hr Q24H IVPB 06/03/17 21:00 06/10/17 20:59 06/04/17 20:39 Clonidine HCl (Catapres) 0.1 mg Q4H PRN ORAL sbp more than 160 06/02/17 17:00 07/02/17 16:59 06/04/17 06:52 Dextrose (Dextrose 50%) STAT PRN IV Hypoglycemia 06/02/17 17:00 07/02/17 16:59 Gabapentin (Neurontin) 300 mg BEDTIME ORAL 06/02/17 21:00 07/02/17 20:59 06/04/17 20:40 Insulin Aspart (NovoLOG) BEFORE MEALS AND HS SUBQ 06/02/17 17:30 06/30/17 17:29 06/04/17 20:42 Insulin Aspart (NovoLOG) 6 units NOVOTIAC SUBQ 06/03/17 11:50 07/03/17 11:49 06/04/17 17:02 Insulin Detemir (Levemir) 15 units BEDTIME SUBQ 06/03/17 21:00 07/03/17 20:59 06/04/17 20:41 Lansoprazole (Prevacid) 30 mg DAILY ORAL 06/03/17 09:00 06/30/17 09:44 06/04/17 08:38 Morphine Sulfate (Morphine Sulfate) 2 mg Q4H PRN IVP severe pain 7-10 06/02/17 17:00 06/09/17 16:59 06/04/17 18:18 Nifedipine (Procardia XL) 60 mg DAILY ORAL 06/03/17 09:00 06/30/17 09:44 06/04/17 08:39 Nitroglycerin (Ntg) 0.4 mg Q5M X 3 DOSES PRN SL Prn Chest Pain 06/02/17 17:00 06/29/17 16:59 Ondansetron HCl (Zofran) 4 mg Q6H PRN IVP Nausea & Vomiting 06/02/17 17:00 06/29/17 16:59 Polyethylene Glycol (Miralax) 17 gm HSPRN PRN ORAL Constipation 06/02/17 17:00 06/29/17 16:59 Sodium Chloride 1,000 ml @ 100 mls/hr Q10H IVLG 06/02/17 17:30 06/30/17 17:29 06/04/17 20:40 Tamsulosin HCl (Flomax) 0.4 mg Q12HR ORAL 06/02/17 21:00 06/30/17 20:59 06/04/17 20:40 Temazepam (Restoril) 15 mg HSPRN PRN ORAL Insomnia 06/02/17 17:00 06/06/17 16:59 Liz Guevara M.D. Jun 04, 2017 21:23
[2017-06-05 00:23] VITALS: BP 141/66
[2017-06-05 04:00] VITALS: BP 143/69
[2017-06-05] MEDS: Morphine Sulfate 2mg/ml Inj IVP PRN ×4 (05:20→20:44)
[2017-06-05] MEDS: NovoLOG Insulin Flexpen SUBQ SCH ×7 (06:10→20:32)
[2017-06-05 07:11] LABS: BASOPHILS % (AUTO) 1.2 % (0.0-2.0); EOSINOPHILS % (AUTO) 2.3 % (0.0-3.0); LYMPHOCYTES % (AUTO) 15.6 % (20.0-45.0); MEAN CORPUSCULAR HEMOGLOBIN 28.6 PG (27.0-31.0); MEAN CORPUSCULAR HGB CONC 30.5 G/DL (32.0-36.0); MEAN CORPUSCULAR VOLUME 94 FL (80-99); MEAN PLATELET VOLUME 6.9 FL (6.5-10.1); MONOCYTES % (AUTO) 11.7 % (1.0-10.0); NEUTROPHILS % (AUTO) 69.2 % (45.0-75.0); PLATELET COUNT 290 K/UL (150-450); RED BLOOD COUNT 3.28 M/UL (4.70-6.10)
[2017-06-05 07:30] LABS: CALCIUM 8.5 mg/dL (8.6-10.2); CREATININE 1.9 mg/dL (0.7-1.2); GLOMERULAR FILTRATION RATE 43.1 mL/min (>60); POTASSIUM 4.4 mEQ/L (3.4-4.9)
[2017-06-05 07:54] LABS: PROTHROMBIN TIME 10.5 SEC (9.30-11.50)
[2017-06-05 08:00] VITALS: BP 159/75
[2017-06-05] MEDS: Tamsulosin 0.4mg cap ORAL SCH ×2 (09:18→20:43)
[2017-06-05] MEDS: Carvedilol 6.25mg Tab ORAL SCH ×2 (09:19→20:44)
[2017-06-05] MEDS: Eliquis 2.5mg tablet ORAL SCH (09:19)
--- NOTE | 2017-06-05 10:54 | Infectious Diseases Prog Note ---
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 Ceftriaxone, levo/cipro, Bactrim, Zosyn), +4 E. cloace (S. Ceftriaxone, levo/Cipro, Zosyn; R bactrim); possible that these represents colonizer as wound cx was superficial and likely pathogens could still be Strep sp and MSSA. -s/p admission in [facility] in March for stump infection s/p 4 weeks of PO abx (pt unsure of abx) -06/03 ESR 116, CRP 6.1 Leukocytosis, mild- persistent -Bcx NTD Pyuria/Bacteriuria -u/a WBC 5-10, nit +, leuk +3; ucx >100K Serratia marcenses (S. CTX, zosy, Cipro, bactrim) NOHELIA on CKD, improving -renal U/s: Mild right hydronephrosis.Left kidney is normal. No left hydronephrosis. Left renal cyst is noted. Distended urinary bladder with wall thickening. There is layering debris within the urinary bladder. Cystitis cannot be excluded Hyperlipidemia. History of hypoglycemia. Hypertension. Diabetes. Atrial fibrillation. PLAN: -Continue IV Ceftriaxone #3 (abx d#6) -s/p 5d IV Vanco, 4d Zosyn 06/03 -will monitor closely for worsening of symptoms,fever, leukocytosis as organisms isolated has potential of ESBL inducibility -For revision of stump on 05/2017 -if amputation is done and removal of all infected bone, then will require short abx course of 5-7 days after surgery -if residual OM, then prolonged abx for 6 weeks -awaiting records from [facility] (RN to follow up) -Trend WBC -Monitor CBC/ BMP, temperatures -Monitor cultures -obtain records at [facility] for recent admission (cx obtained,a bx given, etc) -wound care Discussed with RN, Dr Burgess and Dr De La Torre Subjective Allergies: Coded Allergies: No Known Allergies (Unverified , 04/25/17) Subjective afebrile VSS at RA leukocytosis improved Bcx NTD awaiting records from [facility] Objective Vital Signs Last 24 Hour Vital Signs Date Time Temp Pulse Resp B/P (MAP) Pulse Ox O2 Delivery O2 Flow Rate FiO2 10/5/17 09:20 76 159/75 06/05/17 09:19 76 159/75 06/05/17 08:00 98.5 76 20 159/75 96 Room Air 06/05/17 06:43 76 17 Room Air 06/05/17 05:50 98.1 06/05/17 04:00 98.1 67 19 143/69 97 Room Air 06/05/17 00:23 97.8 72 18 141/66 96 Room Air 06/04/17 20:40 64 141/64 06/04/17 20:07 97.9 64 19 141/64 97 Room Air 06/04/17 19:55 74 18 Room Air 21 06/04/17 16:00 98.7 72 20 154/73 96 Room Air 06/04/17 12:00 98.4 73 19 149/76 95 Room Air Height (Feet): 6 Height (Inches): 2.00 Weight (Pounds): 112 Objective HEENT: No pale conjunctivae. No icterus. NECK: No lymphadenopathy. CHEST: Clear. HEART: S1 and S2. ABDOMEN: Soft and nontender. EXTREMITIES: Right BKA stump has open wound wit probing to bone and foul smellig odor, no purulence discharge, no surroudign skin cellulitis. NEUROLOGIC: Awake and alert. Laboratory Tests Test 06/05/17 05:20 White Blood Count 11.0 K/UL (4.8-10.8) H Red Blood Count 3.28 M/UL (4.70-6.10) L Hemoglobin 9.4 G/DL (14.2-18.0) L Hematocrit 30.8 % (42.0-52.0) L Mean Corpuscular Volume 94 FL (80-99) Mean Corpuscular Hemoglobin 28.6 PG (27.0-31.0) Mean Corpuscular Hemoglobin Concent 30.5 G/DL (32.0-36.0) L Red Cell Distribution Width 15.0 % (11.6-14.8) H Platelet Count 290 K/UL (150-450) Mean Platelet Volume 6.9 FL (6.5-10.1) Neutrophils (%) (Auto) 69.2 % (45.0-75.0) Lymphocytes (%) (Auto) 15.6 % (20.0-45.0) L Monocytes (%) (Auto) 11.7 % (1.0-10.0) H Eosinophils (%) (Auto) 2.3 % (0.0-3.0) Basophils (%) (Auto) 1.2 % (0.0-2.0) Prothrombin Time 10.5 SEC (9.30-11.50) Prothromb Time International Ratio 1.0 (0.9-1.1) Activated Partial Thromboplast Time 35 SEC (23-33) H Sodium Level 141 mEQ/L (135-145) Potassium Level 4.4 mEQ/L (3.4-4.9) Chloride Level 110 mEQ/L (98-107) H Carbon Dioxide Level 20 mEQ/L (20-30) Anion Gap 11 (5-15) Blood Urea Nitrogen 23 mg/dL (7-23) Creatinine 1.9 mg/dL (0.7-1.2) H Estimat Glomerular Filtration Rate 43.1 mL/min (>60) Glucose Level 58 mg/dL (74-106) L Calcium Level 8.5 mg/dL (8.6-10.2) L Current Medications Medications (Trade) Dose Ordered Sig/Dragan Route PRN Reason Start Time Stop Time Status Last Admin Dose Admin Acetaminophen (Tylenol) 650 mg Q4H PRN ORAL fever 06/02/17 17:00 06/29/17 16:59 Albuterol/ Ipratropium (DuoNeb 0.5-3(2.5)mg/3ml) 3 ml Q4H PRN HHN Shortness of Breath 06/02/17 17:00 06/07/17 16:59 Apixaban (Eliquis) 2.5 mg BID ORAL 06/02/17 18:00 07/02/17 17:59 06/05/17 09:19 Atorvastatin Calcium (Lipitor) 80 mg BEDTIME ORAL 06/02/17 21:00 06/30/17 20:59 06/04/17 20:40 Carvedilol (Coreg) 6.25 mg EVERY 12 HOURS ORAL 06/02/17 21:00 07/02/17 20:59 06/05/17 09:19 Ceftriaxone Sodium 2 gm/ Dextrose 110 ml @ 220 mls/hr Q24H IVPB 06/03/17 21:00 06/10/17 20:59 06/04/17 20:39 Clonidine HCl (Catapres) 0.1 mg Q4H PRN ORAL sbp more than 160 06/02/17 17:00 07/02/17 16:59 06/04/17 06:52 Dextrose (Dextrose 50%) STAT PRN IV Hypoglycemia 06/02/17 17:00 07/02/17 16:59 Gabapentin (Neurontin) 300 mg BEDTIME ORAL 06/02/17 21:00 07/02/17 20:59 06/04/17 20:40 Insulin Aspart (NovoLOG) BEFORE MEALS AND HS SUBQ 06/02/17 17:30 06/30/17 17:29 06/04/17 20:42 Insulin Aspart (NovoLOG) 6 units NOVOTIAC SUBQ 06/03/17 11:50 07/03/17 11:49 06/04/17 17:02 Insulin Detemir (Levemir) 15 units BEDTIME SUBQ 06/03/17 21:00 07/03/17 20:59 06/04/17 20:41 Lansoprazole (Prevacid) 30 mg DAILY ORAL 06/03/17 09:00 06/30/17 09:44 06/05/17 09:18 Morphine Sulfate (Morphine Sulfate) 2 mg Q4H PRN IVP severe pain 7-10 06/02/17 17:00 06/09/17 16:59 06/05/17 10:20 Nifedipine (Procardia XL) 60 mg DAILY ORAL 06/03/17 09:00 06/30/17 09:44 06/05/17 09:20 Nitroglycerin (Ntg) 0.4 mg Q5M X 3 DOSES PRN SL Prn Chest Pain 06/02/17 17:00 06/29/17 16:59 Ondansetron HCl (Zofran) 4 mg Q6H PRN IVP Nausea & Vomiting 06/02/17 17:00 06/29/17 16:59 Polyethylene Glycol (Miralax) 17 gm HSPRN PRN ORAL Constipation 06/02/17 17:00 06/29/17 16:59 Sodium Chloride 1,000 ml @ 100 mls/hr Q10H IVLG 06/02/17 17:30 06/30/17 17:29 06/05/17 05:20 Tamsulosin HCl (Flomax) 0.4 mg Q12HR ORAL 06/02/17 21:00 06/30/17 20:59 06/05/17 09:18 Temazepam (Restoril) 15 mg HSPRN PRN ORAL Insomnia 06/02/17 17:00 06/06/17 16:59 Liz Guevara M.D. Jun 05, 2017 10:54
--- NOTE | 2017-06-05 11:21 | General Progress Note ---
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 Subjective ROS Limited/Unobtainable: No Constitutional: Reports: malaise Allergies: Coded Allergies: No Known Allergies (Unverified , 04/25/17) Objective Last 24 Hour Vital Signs Date Time Temp Pulse Resp B/P (MAP) Pulse Ox O2 Delivery O2 Flow Rate FiO2 06/05/17 09:20 76 159/75 06/05/17 09:19 76 159/75 06/05/17 08:00 98.5 76 20 159/75 96 Room Air 06/05/17 06:43 76 17 Room Air 06/05/17 05:50 98.1 06/05/17 04:00 98.1 67 19 143/69 97 Room Air 06/05/17 00:23 97.8 72 18 141/66 96 Room Air 06/04/17 20:40 64 141/64 06/04/17 20:07 97.9 64 19 141/64 97 Room Air 06/04/17 19:55 74 18 Room Air 21 06/04/17 16:00 98.7 72 20 154/73 96 Room Air 06/04/17 12:00 98.4 73 19 149/76 95 Room Air Intake and Output 06/05/17 06/06/17 19:00 07:00 Intake Total 240 ml Balance 240 ml Intake Oral 240 ml Laboratory Tests 06/05/17 05:20: White Blood Count 11.0H, Red Blood Count 3.28L, Hemoglobin 9.4L, Hematocrit 30.8L, Mean Corpuscular Volume 94, Mean Corpuscular Hemoglobin 28.6, Mean Corpuscular Hemoglobin Concent 30.5L, Red Cell Distribution Width 15.0H, Platelet Count 290, Mean Platelet Volume 6.9, Neutrophils (%) (Auto) 69.2, Lymphocytes (%) (Auto) 15.6L, Monocytes (%) (Auto) 11.7H, Eosinophils (%) (Auto ) 2.3, Basophils (%) (Auto) 1.2, Prothrombin Time 10.5, Prothromb Time International Ratio 1.0, Activated Partial Thromboplast Time 35H, Sodium Level 141, Potassium Level 4.4, Chloride Level 110H, Carbon Dioxide Level 20, Anion Gap 11, Blood Urea Nitrogen 23, Creatinine 1.9H, Estimat Glomerular Filtration Rate 43.1, Glucose Level 58L, Calcium Level 8.5L Height (Feet): 6 Height (Inches): 2.00 Weight (Pounds): 112 General Appearance: no apparent distress Objective no change in PE TYE TINAJERO Jun 05, 2017 11:21
--- NOTE | 2017-06-05 11:54 | General Progress Note ---
Progress Note Progress Note Surgery: Case reviewed and discussed with ID. Discussed with Dr. Burgess. Discussed with Patient. Initial fall in late January 2017. Small area of exposed bone at distal stump. Went to [facility] and was discharged home with 4 weeks oral Abx. Initially improved but then began to drain again. Currently has acute osteo of distal stump with exposed bone. Prolonged IV Abx may work but given duration and would may not and would potentially delay care. Furthermore, patient has baseline renal insufficiency which could worsen with prolonged Abx. After long discussion with patient at bedside explaining the risks, benefits, and alternatives to surgery he expressed desire to proceed with revision of his BKA, possible AKA to remove the infected portion of stump. Scheduled for Friday at 11:30AM Artur De La Torre Jun 05, 2017 11:54
[2017-06-05 12:20] LABS: OTHERS PATHOLOGIST COMMENT
[2017-06-05 12:24] VITALS: BP 142/78
--- NOTE | 2017-06-05 14:57 | Pulmonology Progress Note ---
Assessment/Plan Problems: (1) Syncope (2) Sepsis (3) Right BKA infection (4) HTN (hypertension) (5) Diabetes mellitus (6) Renal failure (7) BPH (benign prostatic hyperplasia) Assessment/Plan renal function improving d/w surgeon for possible debridement or amputation Echo shoed previously 55% EF avoid nephrotoxic sliding scale check electrolytes scheduled for surgery now Subjective ROS Limited/Unobtainable: No Constitutional: Reports: no symptoms HEENT: Repors: no symptoms Respiratory: Reports: no symptoms Allergies: Coded Allergies: No Known Allergies (Unverified , 04/25/17) Objective Last 24 Hour Vital Signs Date Time Temp Pulse Resp B/P (MAP) Pulse Ox O2 Delivery O2 Flow Rate FiO2 06/05/17 12:24 98.7 89 18 142/78 98 Room Air 06/05/17 09:20 76 159/75 06/05/17 09:19 76 159/75 06/05/17 08:00 98.5 76 20 159/75 96 Room Air 06/05/17 06:43 76 17 Room Air 06/05/17 05:50 98.1 06/05/17 04:00 98.1 67 19 143/69 97 Room Air 06/05/17 00:23 97.8 72 18 141/66 96 Room Air 06/04/17 20:40 64 141/64 06/04/17 20:07 97.9 64 19 141/64 97 Room Air 06/04/17 19:55 74 18 Room Air 21 06/04/17 16:00 98.7 72 20 154/73 96 Room Air Intake and Output 06/05/17 06/06/17 19:00 07:00 Intake Total 1090 ml Output Total 700 ml Balance 390 ml Intake Oral 590 ml IV Total 500 ml Output Urine Total 700 ml # Voids 3 # Bowel Movements 2 General Appearance: WD/WN HEENT: normocephalic, mucous membranes moist Respiratory/Chest: chest wall non-tender, normal breath sounds Cardiovascular: normal peripheral pulses, normal rate Abdomen: normal bowel sounds, no organomegaly Laboratory Tests 06/05/17 05:20: White Blood Count 11.0H, Red Blood Count 3.28L, Hemoglobin 9.4L, Hematocrit 30.8L, Mean Corpuscular Volume 94, Mean Corpuscular Hemoglobin 28.6, Mean Corpuscular Hemoglobin Concent 30.5L, Red Cell Distribution Width 15.0H, Platelet Count 290, Mean Platelet Volume 6.9, Neutrophils (%) (Auto) 69.2, Lymphocytes (%) (Auto) 15.6L, Monocytes (%) (Auto) 11.7H, Eosinophils (%) (Auto ) 2.3, Basophils (%) (Auto) 1.2, Prothrombin Time 10.5, Prothromb Time International Ratio 1.0, Activated Partial Thromboplast Time 35H, Sodium Level 141, Potassium Level 4.4, Chloride Level 110H, Carbon Dioxide Level 20, Anion Gap 11, Blood Urea Nitrogen 23, Creatinine 1.9H, Estimat Glomerular Filtration Rate 43.1, Glucose Level 58L, Calcium Level 8.5L Current Medications Medications (Trade) Dose Ordered Sig/Dragan Route PRN Reason Start Time Stop Time Status Last Admin Dose Admin Acetaminophen (Tylenol) 650 mg Q4H PRN ORAL fever 06/02/17 17:00 06/29/17 16:59 Albuterol/ Ipratropium (DuoNeb 0.5-3(2.5)mg/3ml) 3 ml Q4H PRN HHN Shortness of Breath 06/02/17 17:00 06/07/17 16:59 Atorvastatin Calcium (Lipitor) 80 mg BEDTIME ORAL 06/02/17 21:00 06/30/17 20:59 06/04/17 20:40 Carvedilol (Coreg) 6.25 mg EVERY 12 HOURS ORAL 06/02/17 21:00 07/02/17 20:59 06/05/17 09:19 Ceftriaxone Sodium 2 gm/ Dextrose 110 ml @ 220 mls/hr Q24H IVPB 06/03/17 21:00 06/10/17 20:59 06/04/17 20:39 Clonidine HCl (Catapres) 0.1 mg Q4H PRN ORAL sbp more than 160 06/02/17 17:00 07/02/17 16:59 06/04/17 06:52 Dextrose (Dextrose 50%) STAT PRN IV Hypoglycemia 06/02/17 17:00 07/02/17 16:59 Gabapentin (Neurontin) 300 mg BEDTIME ORAL 06/02/17 21:00 07/02/17 20:59 06/04/17 20:40 Insulin Aspart (NovoLOG) BEFORE MEALS AND HS SUBQ 06/02/17 17:30 06/30/17 17:29 06/05/17 12:01 Insulin Aspart (NovoLOG) 6 units NOVOTIAC SUBQ 06/03/17 11:50 07/03/17 11:49 06/05/17 12:02 Insulin Detemir (Levemir) 15 units BEDTIME SUBQ 06/03/17 21:00 07/03/17 20:59 06/04/17 20:41 Lansoprazole (Prevacid) 30 mg DAILY ORAL 06/03/17 09:00 06/30/17 09:44 06/05/17 09:18 Morphine Sulfate (Morphine Sulfate) 2 mg Q4H PRN IVP severe pain 7-10 06/02/17 17:00 06/09/17 16:59 06/05/17 10:20 Nifedipine (Procardia XL) 60 mg DAILY ORAL 06/03/17 09:00 06/30/17 09:44 06/05/17 09:20 Nitroglycerin (Ntg) 0.4 mg Q5M X 3 DOSES PRN SL Prn Chest Pain 06/02/17 17:00 06/29/17 16:59 Ondansetron HCl (Zofran) 4 mg Q6H PRN IVP Nausea & Vomiting 06/02/17 17:00 06/29/17 16:59 Polyethylene Glycol (Miralax) 17 gm HSPRN PRN ORAL Constipation 06/02/17 17:00 06/29/17 16:59 Sodium Chloride 1,000 ml @ 100 mls/hr Q10H IVLG 06/02/17 17:30 06/30/17 17:29 06/05/17 05:20 Tamsulosin HCl (Flomax) 0.4 mg Q12HR ORAL 06/02/17 21:00 06/30/17 20:59 06/05/17 09:18 Temazepam (Restoril) 15 mg HSPRN PRN ORAL Insomnia 06/02/17 17:00 06/06/17 16:59 BRIAN HERNANDEZ Jun 05, 2017 14:57
[2017-06-05 16:00] VITALS: BP 152/83
--- NOTE | 2017-06-05 16:10 | Internal Med Progress Note ---
Subjective Date of Service: Jun 05, 2017 Physician Name Felton Smalls Attending Physician Bruno Serrato MD Current Medications Medications (Trade) Dose Ordered Sig/Dragan Route PRN Reason Start Time Stop Time Status Last Admin Dose Admin Acetaminophen (Tylenol) 650 mg Q4H PRN ORAL fever 06/02/17 17:00 06/29/17 16:59 Albuterol/ Ipratropium (DuoNeb 0.5-3(2.5)mg/3ml) 3 ml Q4H PRN HHN Shortness of Breath 06/02/17 17:00 06/07/17 16:59 Atorvastatin Calcium (Lipitor) 80 mg BEDTIME ORAL 06/02/17 21:00 06/30/17 20:59 06/04/17 20:40 Carvedilol (Coreg) 6.25 mg EVERY 12 HOURS ORAL 06/02/17 21:00 07/02/17 20:59 06/05/17 09:19 Ceftriaxone Sodium 2 gm/ Dextrose 110 ml @ 220 mls/hr Q24H IVPB 06/03/17 21:00 06/10/17 20:59 06/04/17 20:39 Clonidine HCl (Catapres) 0.1 mg Q4H PRN ORAL sbp more than 160 06/02/17 17:00 07/02/17 16:59 06/04/17 06:52 Dextrose (Dextrose 50%) STAT PRN IV Hypoglycemia 06/02/17 17:00 07/02/17 16:59 Gabapentin (Neurontin) 300 mg BEDTIME ORAL 06/02/17 21:00 07/02/17 20:59 06/04/17 20:40 Insulin Aspart (NovoLOG) BEFORE MEALS AND HS SUBQ 06/02/17 17:30 06/30/17 17:29 06/05/17 12:01 Insulin Aspart (NovoLOG) 6 units NOVOTIAC SUBQ 06/03/17 11:50 07/03/17 11:49 06/05/17 12:02 Insulin Detemir (Levemir) 15 units BEDTIME SUBQ 06/03/17 21:00 07/03/17 20:59 06/04/17 20:41 Lansoprazole (Prevacid) 30 mg DAILY ORAL 06/03/17 09:00 06/30/17 09:44 06/05/17 09:18 Morphine Sulfate (Morphine Sulfate) 2 mg Q4H PRN IVP severe pain 7-10 06/02/17 17:00 06/09/17 16:59 06/05/17 10:20 Nifedipine (Procardia XL) 60 mg DAILY ORAL 06/03/17 09:00 06/30/17 09:44 06/05/17 09:20 Nitroglycerin (Ntg) 0.4 mg Q5M X 3 DOSES PRN SL Prn Chest Pain 06/02/17 17:00 06/29/17 16:59 Ondansetron HCl (Zofran) 4 mg Q6H PRN IVP Nausea & Vomiting 06/02/17 17:00 06/29/17 16:59 Polyethylene Glycol (Miralax) 17 gm HSPRN PRN ORAL Constipation 06/02/17 17:00 06/29/17 16:59 Sodium Chloride 1,000 ml @ 100 mls/hr Q10H IVLG 06/02/17 17:30 06/30/17 17:29 06/05/17 05:20 Tamsulosin HCl (Flomax) 0.4 mg Q12HR ORAL 06/02/17 21:00 06/30/17 20:59 06/05/17 09:18 Temazepam (Restoril) 15 mg HSPRN PRN ORAL Insomnia 06/02/17 17:00 06/06/17 16:59 Allergies: Coded Allergies: No Known Allergies (Unverified , 04/25/17) ROS Limited/Unobtainable: No Constitutional: Reports: no symptoms HEENT: Reports: no symptoms Cardiovascular: Reports: no symptoms Respiratory: Reports: no symptoms Gastrointestinal/Abdominal: Reports: no symptoms Genitourinary: Reports: no symptoms Neurologic/Psychiatric: Reports: no symptoms Subjective 66 YO M admitted with uncontroled diabetes and BKA pain. Now osteomyelitis right BKA stump-surgery scheduled 06/09/17.. Cover for Int Med-Dr Serrato. Objective Last Vital Signs Date Time Temp Pulse Resp B/P (MAP) Pulse Ox O2 Delivery O2 Flow Rate FiO2 06/05/17 16:00 98.4 73 18 152/83 96 Room Air 06/04/17 19:55 21 Laboratory Tests Test 06/05/17 05:20 White Blood Count 11.0 K/UL (4.8-10.8) H Red Blood Count 3.28 M/UL (4.70-6.10) L Hemoglobin 9.4 G/DL (14.2-18.0) L Hematocrit 30.8 % (42.0-52.0) L Mean Corpuscular Volume 94 FL (80-99) Mean Corpuscular Hemoglobin 28.6 PG (27.0-31.0) Mean Corpuscular Hemoglobin Concent 30.5 G/DL (32.0-36.0) L Red Cell Distribution Width 15.0 % (11.6-14.8) H Platelet Count 290 K/UL (150-450) Mean Platelet Volume 6.9 FL (6.5-10.1) Neutrophils (%) (Auto) 69.2 % (45.0-75.0) Lymphocytes (%) (Auto) 15.6 % (20.0-45.0) L Monocytes (%) (Auto) 11.7 % (1.0-10.0) H Eosinophils (%) (Auto) 2.3 % (0.0-3.0) Basophils (%) (Auto) 1.2 % (0.0-2.0) Prothrombin Time 10.5 SEC (9.30-11.50) Prothromb Time International Ratio 1.0 (0.9-1.1) Activated Partial Thromboplast Time 35 SEC (23-33) H Sodium Level 141 mEQ/L (135-145) Potassium Level 4.4 mEQ/L (3.4-4.9) Chloride Level 110 mEQ/L (98-107) H Carbon Dioxide Level 20 mEQ/L (20-30) Anion Gap 11 (5-15) Blood Urea Nitrogen 23 mg/dL (7-23) Creatinine 1.9 mg/dL (0.7-1.2) H Estimat Glomerular Filtration Rate 43.1 mL/min (>60) Glucose Level 58 mg/dL (74-106) L Calcium Level 8.5 mg/dL (8.6-10.2) L Intake and Output 06/05/17 06/06/17 19:00 07:00 Intake Total 1090 ml Output Total 700 ml Balance 390 ml Intake Oral 590 ml IV Total 500 ml Output Urine Total 700 ml # Voids 3 # Bowel Movements 2 Objective General Appearance: alert, mild distress, thin EENT: PERRL/EOMI, normal ENT inspection Neck: non-tender, normal alignment, supple Cardiovascular: normal peripheral pulses, normal rate, regular rhythm, no gallop/murmur, no JVD Respiratory/Chest: chest wall non-tender, lungs clear, normal breath sounds, no respiratory distress, no accessory muscle use Abdomen: normal bowel sounds, non tender, soft, no organomegaly, no mass Extremities: other - right BKA 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 (3) Diabetes mellitus type II, uncontrolled Assessment & Plan: Continue novolog and levemir per endocrinology. See Endocrinology consult. (4) Right BKA infection Assessment & Plan: See ID note. Continue Zosyn. Wound care. Scheduled for BKA revision vs AKA on 06/09/17-see surgery note. Cardiology clearance for Surgery pending. (5) Syncope (6) HTN (hypertension) Assessment & Plan: Continue Procardia (7) Osteomyelitis of right tibia Assessment & Plan: Continue antibiotic per ID. May require right Above the knee amputation per surgery-see note. Status: not improved FELTON SMALLS Jun 05, 2017 16:10
--- NOTE | 2017-06-05 17:32 | General Progress Note ---
Assessment/Plan Assessment/Plan ASSESSMENT AND PLAN: # Leukocytosis 2/2 OM 1. Anemia secondary to chronic disease. Anemia workup has been reviewed, consistent with anemia of chronic disease. --> pt has received blood transfusion, keep hgb above 8 2. Decreased hemoglobin and hematocrit. Rule out gastrointestinal bleed. Occult blood is negative. 3. Acute kidney injury, mild hydronephrosis with history of bladder outlet obstruction. 4. Diabetes mellitus. Continue to better control diabetes mellitus. 5. Followup with nephrology team. 6. Right below-knee amputation osteomyelitis. Surgery and ID following --> scheduled for surgery next Mon Subjective Constitutional: Reports: no symptoms HEENT: Reports: no symptoms Cardiovascular: Reports: no symptoms Respiratory: Reports: no symptoms Gastrointestinal/Abdominal: Reports: no symptoms Genitourinary: Reports: no symptoms Neurologic/Psychiatric: Reports: no symptoms Endocrine: Reports: no symptoms Hematologic/Lymphatic: Reports: no symptoms Allergies: Coded Allergies: No Known Allergies (Unverified , 04/25/17) Subjective no events overnight Objective Last 24 Hour Vital Signs Date Time Temp Pulse Resp B/P (MAP) Pulse Ox O2 Delivery O2 Flow Rate FiO2 06/05/17 16:00 98.4 73 18 152/83 96 Room Air 06/05/17 12:24 98.7 89 18 142/78 98 Room Air 06/05/17 09:20 76 159/75 06/05/17 09:19 76 159/75 06/05/17 08:00 98.5 76 20 159/75 96 Room Air 06/05/17 06:43 76 17 Room Air 06/05/17 05:50 98.1 06/05/17 04:00 98.1 67 19 143/69 97 Room Air 06/05/17 00:23 97.8 72 18 141/66 96 Room Air 06/04/17 20:40 64 141/64 06/04/17 20:07 97.9 64 19 141/64 97 Room Air 06/04/17 19:55 74 18 Room Air 21 Intake and Output 06/05/17 06/06/17 19:00 07:00 Intake Total 1090 ml Output Total 700 ml Balance 390 ml Intake Oral 590 ml IV Total 500 ml Output Urine Total 700 ml # Voids 3 # Bowel Movements 2 Laboratory Tests 06/05/17 05:20: White Blood Count 11.0H, Red Blood Count 3.28L, Hemoglobin 9.4L, Hematocrit 30.8L, Mean Corpuscular Volume 94, Mean Corpuscular Hemoglobin 28.6, Mean Corpuscular Hemoglobin Concent 30.5L, Red Cell Distribution Width 15.0H, Platelet Count 290, Mean Platelet Volume 6.9, Neutrophils (%) (Auto) 69.2, Lymphocytes (%) (Auto) 15.6L, Monocytes (%) (Auto) 11.7H, Eosinophils (%) (Auto ) 2.3, Basophils (%) (Auto) 1.2, Prothrombin Time 10.5, Prothromb Time International Ratio 1.0, Activated Partial Thromboplast Time 35H, Sodium Level 141, Potassium Level 4.4, Chloride Level 110H, Carbon Dioxide Level 20, Anion Gap 11, Blood Urea Nitrogen 23, Creatinine 1.9H, Estimat Glomerular Filtration Rate 43.1, Glucose Level 58L, Calcium Level 8.5L Height (Feet): 6 Height (Inches): 2.00 Weight (Pounds): 112 General Appearance: no apparent distress EENT: normal ENT inspection Neck: normal alignment Cardiovascular: normal peripheral pulses Respiratory/Chest: chest wall non-tender Extremities: normal inspection 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
--- NOTE | 2017-06-05 17:43 | Cardiac Electrophysiology PN ---
Assessment/Plan Status Narrative Mild left ventricular enlargement by 2D. Normal left ventricular systolic function and wall motion. Left ventricular ejection fraction estimated to be 55 %. Mild left ventricular hypertrophy. No evidence of pericardial fat or effusion. All other cardiac chamber sizes are within normal limits. Moderate focal aortic valve sclerosis with adequate cusp excursion. Mildly thickened mitral valve leaflets with normal excursion. Mild mitral annulus and aortic root calcification. Normal pulmonic valve structure. Normal tricuspid valve structure. IVC dilated at 2.1 cm with physiologic collapse. Assessment/Plan 1. Paroxysmal atrial fibrillation, currently in sinus rhythm On Coreg 6.25 bid and Eliquis. 2. Hypertension, Procardia XL 60 mg daily and Coreg 6.25 bid. 3. Hyperlipidemia, on Lipitor. 4. Status post right [id number] amputation and infection at the site, the patient on IV antibiotic per Infectious Diseases with vancomycin and Zosyn.OK to proceed with higher level amputation. Hold Eliquis. Echo EF 55% DW RN Subjective Subjective Comfortable in NAD. No chest pain or SOB. Dr Burgess to re extending the R BKA Friday. Objective Last 24 Hour Vital Signs Date Time Temp Pulse Resp B/P (MAP) Pulse Ox O2 Delivery O2 Flow Rate FiO2 06/05/17 16:00 98.4 73 18 152/83 96 Room Air 06/05/17 12:24 98.7 89 18 142/78 98 Room Air 06/05/17 09:20 76 159/75 06/05/17 09:19 76 159/75 06/05/17 08:00 98.5 76 20 159/75 96 Room Air 06/05/17 06:43 76 17 Room Air 06/05/17 05:50 98.1 06/05/17 04:00 98.1 67 19 143/69 97 Room Air 06/05/17 00:23 97.8 72 18 141/66 96 Room Air 06/04/17 20:40 64 141/64 06/04/17 20:07 97.9 64 19 141/64 97 Room Air 06/04/17 19:55 74 18 Room Air 21 Intake and Output 06/05/17 06/06/17 19:00 07:00 Intake Total 1090 ml Output Total 700 ml Balance 390 ml Intake Oral 590 ml IV Total 500 ml Output Urine Total 700 ml # Voids 3 # Bowel Movements 2 Laboratory Tests Test 06/05/17 05:20 White Blood Count 11.0 K/UL (4.8-10.8) H Red Blood Count 3.28 M/UL (4.70-6.10) L Hemoglobin 9.4 G/DL (14.2-18.0) L Hematocrit 30.8 % (42.0-52.0) L Mean Corpuscular Volume 94 FL (80-99) Mean Corpuscular Hemoglobin 28.6 PG (27.0-31.0) Mean Corpuscular Hemoglobin Concent 30.5 G/DL (32.0-36.0) L Red Cell Distribution Width 15.0 % (11.6-14.8) H Platelet Count 290 K/UL (150-450) Mean Platelet Volume 6.9 FL (6.5-10.1) Neutrophils (%) (Auto) 69.2 % (45.0-75.0) Lymphocytes (%) (Auto) 15.6 % (20.0-45.0) L Monocytes (%) (Auto) 11.7 % (1.0-10.0) H Eosinophils (%) (Auto) 2.3 % (0.0-3.0) Basophils (%) (Auto) 1.2 % (0.0-2.0) Prothrombin Time 10.5 SEC (9.30-11.50) Prothromb Time International Ratio 1.0 (0.9-1.1) Activated Partial Thromboplast Time 35 SEC (23-33) H Sodium Level 141 mEQ/L (135-145) Potassium Level 4.4 mEQ/L (3.4-4.9) Chloride Level 110 mEQ/L (98-107) H Carbon Dioxide Level 20 mEQ/L (20-30) Anion Gap 11 (5-15) Blood Urea Nitrogen 23 mg/dL (7-23) Creatinine 1.9 mg/dL (0.7-1.2) H Estimat Glomerular Filtration Rate 43.1 mL/min (>60) Glucose Level 58 mg/dL (74-106) L Calcium Level 8.5 mg/dL (8.6-10.2) L Objective HEAD AND NECK: Showed no JVD or carotid bruits. LUNGS: Clear. CARDIOVASCULAR: Shows regular S1 and S2 with no gallop. ABDOMEN: Soft. Extremities: Status post right [id number] amputation MADI MAYBERRY Jun 05, 2017 17:43
[2017-06-05 20:00] VITALS: BP 160/71
[2017-06-05] MEDS: Levemir Flexpen SUBQ SCH (20:33)
[2017-06-05] MEDS: Atorvastatin 80mg tab ORAL SCH (20:43)
[2017-06-05] MEDS: cefTRIAXone 2 GM in D5W 110 ML IVPB SCH (20:44)
[2017-06-06] VITALS: BP 152/75
[2017-06-06] MEDS: Morphine Sulfate 2mg/ml Inj IVP PRN ×5 (01:07→18:33)
[2017-06-06 04:00] VITALS: BP 137/84
[2017-06-06] MEDS: NovoLOG Insulin Flexpen SUBQ SCH ×7 (05:14→21:45)
[2017-06-06 05:45] LABS: BASOPHILS % (AUTO) 1.1 % (0.0-2.0); EOSINOPHILS % (AUTO) 2.8 % (0.0-3.0); MEAN CORPUSCULAR HEMOGLOBIN 29.9 PG (27.0-31.0); MEAN CORPUSCULAR HGB CONC 32.6 G/DL (32.0-36.0); MEAN CORPUSCULAR VOLUME 92 FL (80-99); MEAN PLATELET VOLUME 7.4 FL (6.5-10.1); MONOCYTES % (AUTO) 12.7 % (1.0-10.0); NEUTROPHILS % (AUTO) 67.4 % (45.0-75.0); PLATELET COUNT 304 K/UL (150-450); RED BLOOD COUNT 2.95 M/UL (4.70-6.10); RED CELL DISTRIBUTION WIDTH 14.6 % (11.6-14.8); WHITE BLOOD COUNT 11.2 K/UL (4.8-10.8)
[2017-06-06 07:26] LABS: CALCIUM 7.8 mg/dL (8.6-10.2); CREATININE 1.9 mg/dL (0.7-1.2); GLOMERULAR FILTRATION RATE 43.1 mL/min (>60); POTASSIUM 4.7 mEQ/L (3.4-4.9)
[2017-06-06 08:00] VITALS: BP 157/78
[2017-06-06] MEDS: Tamsulosin 0.4mg cap ORAL SCH ×2 (08:31→21:39)
[2017-06-06] MEDS: Carvedilol 6.25mg Tab ORAL SCH ×2 (08:31→21:51)
--- NOTE | 2017-06-06 10:50 | General Progress Note ---
Progress Note Progress Note Surgery: patient seen and examined at bedside. no acute events. doing well. pain improve. no n/v/f/c. Afebrile, HD stable, VSS, exam stable. labs reviewed and stable planned OR Friday for revision of BKA with excision of infected bone. NPO friday night hold anticoagulation Artur De La Torre Jun 06, 2017 10:50
--- NOTE | 2017-06-06 11:07 | Diagnostic Imaging Report ---
APPROVED REPORT CPT Code: 98000 Symptoms PAD Comments: Pain Comments Hx of Osteomyelitis Cellulitis Edematous Right BKA stump A-Fib RIGHT LEG: Common femoral artery waveform analysis is within normal limits at rest. Color flow duplex sonography reveals calcification throughout the superficial femoral and popliteal arteries. There is no evidence of significant stenosis or occlusion within these segments. The tibioperoneal trunk is patent. The proximal posterior and anterior tibial arteries are also mildly calcified. The distal posterior and dorsalis pedis arteries were not imaged, due to BKA stump wound. The proximal Doppler tibial artery waveform analysis is (vasodilated and monophasic) compatible with moderate ischemia at rest. LEFT LEG: Common femoral artery waveform analysis is within normal limits at rest. Color flow duplex sonography reveals calcification throughout the superficial femoral and popliteal arteries. There is no evidence of significant stenosis or occlusion within these segments. The tibioperoneal trunk is patent. The distal posterior, anterior and dorsalis pedis arteries are also mildly calcified. The distal Doppler tibial artery waveform analysis is (vasodilated and monophasic) compatible with moderate ischemia at rest.
[2017-06-06 12:00] VITALS: BP 154/72
--- NOTE | 2017-06-06 12:43 | General Progress Note ---
Assessment/Plan Assessment/Plan ASSESSMENT AND PLAN: # Leukocytosis 2/2 OM 1. Anemia secondary to chronic disease. Anemia workup has been reviewed, consistent with anemia of chronic disease. --> pt has received blood transfusion, keep hgb above 8 2. Decreased hemoglobin and hematocrit. Rule out gastrointestinal bleed. Occult blood is negative. 3. Acute kidney injury, mild hydronephrosis with history of bladder outlet obstruction. 4. Diabetes mellitus. Continue to better control diabetes mellitus. 6. Right below-knee amputation osteomyelitis. Surgery and ID following --> scheduled for surgery next Mon Subjective ROS Limited/Unobtainable: Yes Allergies: Coded Allergies: No Known Allergies (Unverified , 04/25/17) Subjective afebrile, awaiting surgery on fri Objective Last 24 Hour Vital Signs Date Time Temp Pulse Resp B/P (MAP) Pulse Ox O2 Delivery O2 Flow Rate FiO2 06/06/17 12:00 97.8 75 19 154/72 97 Room Air 06/06/17 10:12 97.4 06/06/17 08:32 78 157/78 06/06/17 08:31 78 157/78 06/06/17 08:00 97.4 78 19 157/78 96 Room Air 06/06/17 07:51 79 18 Room Air 06/06/17 04:00 97.9 79 18 137/84 97 Room Air 06/06/17 00:00 98.2 85 18 152/75 95 Room Air 06/05/17 20:50 77 20 Room Air 06/05/17 20:44 73 152/83 06/05/17 20:00 97.8 76 18 160/71 96 Room Air 06/05/17 16:00 98.4 73 18 152/83 96 Room Air Intake and Output 06/06/17 06/07/17 19:00 07:00 Intake Total 660 ml Output Total 400 ml Balance 260 ml Intake Oral 360 ml IV Total 300 ml Output Urine Total 400 ml # Voids 1 # Bowel Movements 1 Laboratory Tests 06/06/17 05:00: White Blood Count 11.2H, Red Blood Count 2.95L, Hemoglobin 8.8L, Hematocrit 27.1L, Mean Corpuscular Volume 92, Mean Corpuscular Hemoglobin 29.9, Mean Corpuscular Hemoglobin Concent 32.6, Red Cell Distribution Width 14.6, Platelet Count 304, Mean Platelet Volume 7.4, Neutrophils (%) (Auto) 67.4, Lymphocytes (% ) (Auto) 16.0L, Monocytes (%) (Auto) 12.7H, Eosinophils (%) (Auto) 2.8, Basophils (%) (Auto) 1.1, Sodium Level 139, Potassium Level 4.7, Chloride Level 107, Carbon Dioxide Level 19L, Anion Gap 13, Blood Urea Nitrogen 22, Creatinine 1.9H, Estimat Glomerular Filtration Rate 43.1, Glucose Level 135H, Calcium Level 7.8L Height (Feet): 6 Height (Inches): 2.00 Weight (Pounds): 112 General Appearance: no apparent distress, lethargic EENT: normal ENT inspection Neck: normal alignment Cardiovascular: normal rate Respiratory/Chest: no respiratory distress, no accessory muscle use Abdomen: no organomegaly Edema: moderate edema Neurologic: weight and balance control agent II-XII grossly normal Dino Acosta Jun 06, 2017 12:43
--- NOTE | 2017-06-06 13:20 | General Progress Note ---
Assessment/Plan Status: stable Assessment/Plan admitted for syncope Has DM OOC h/o A fib acute renal failure on CRI previous Cr 1.9 now 2.1 h/o bladder outlet obstruction) per AILYN in past Also due to DM and HTN, has 3+ Proteinuria anemia DM HTN R BKA stump wound BLE pain severe protein calorie malnutrition Urinary retention due to bladder out let Obstruction bladder outlet obstruction Plan: Surgical intervention for Osteo BS control Optimize BS and BP status Avoid nephrotoxics Flomax BID Anemia crawford DC planning?? Subjective ROS Limited/Unobtainable: No Allergies: Coded Allergies: No Known Allergies (Unverified , 04/25/17) Objective Last 24 Hour Vital Signs Date Time Temp Pulse Resp B/P (MAP) Pulse Ox O2 Delivery O2 Flow Rate FiO2 06/06/17 12:00 97.8 75 19 154/72 97 Room Air 06/06/17 10:12 97.4 06/06/17 08:32 78 157/78 06/06/17 08:31 78 157/78 06/06/17 08:00 97.4 78 19 157/78 96 Room Air 06/06/17 07:51 79 18 Room Air 06/06/17 04:00 97.9 79 18 137/84 97 Room Air 06/06/17 00:00 98.2 85 18 152/75 95 Room Air 06/05/17 20:50 77 20 Room Air 06/05/17 20:44 73 152/83 06/05/17 20:00 97.8 76 18 160/71 96 Room Air 06/05/17 16:00 98.4 73 18 152/83 96 Room Air Intake and Output 06/06/17 06/07/17 19:00 07:00 Intake Total 910 ml Output Total 400 ml Balance 510 ml Intake Oral 360 ml IV Total 550 ml Output Urine Total 400 ml # Voids 1 # Bowel Movements 1 Laboratory Tests 06/06/17 05:00: White Blood Count 11.2H, Red Blood Count 2.95L, Hemoglobin 8.8L, Hematocrit 27.1L, Mean Corpuscular Volume 92, Mean Corpuscular Hemoglobin 29.9, Mean Corpuscular Hemoglobin Concent 32.6, Red Cell Distribution Width 14.6, Platelet Count 304, Mean Platelet Volume 7.4, Neutrophils (%) (Auto) 67.4, Lymphocytes (% ) (Auto) 16.0L, Monocytes (%) (Auto) 12.7H, Eosinophils (%) (Auto) 2.8, Basophils (%) (Auto) 1.1, Sodium Level 139, Potassium Level 4.7, Chloride Level 107, Carbon Dioxide Level 19L, Anion Gap 13, Blood Urea Nitrogen 22, Creatinine 1.9H, Estimat Glomerular Filtration Rate 43.1, Glucose Level 135H, Calcium Level 7.8L Height (Feet): 6 Height (Inches): 2.00 Weight (Pounds): 112 General Appearance: lethargic Cardiovascular: normal rate Respiratory/Chest: decreased breath sounds Abdomen: soft Objective no change in PE TYE TINAJERO Jun 06, 2017 13:20
[2017-06-06] MEDS ORDERED: Tubing IV Secondary IV ONE (15:05)
--- NOTE | 2017-06-06 15:12 | Cardiac Electrophysiology PN ---
Assessment/Plan Status Narrative Mild left ventricular enlargement by 2D. Normal left ventricular systolic function and wall motion. Left ventricular ejection fraction estimated to be 55 %. Mild left ventricular hypertrophy. No evidence of pericardial fat or effusion. All other cardiac chamber sizes are within normal limits. Moderate focal aortic valve sclerosis with adequate cusp excursion. Mildly thickened mitral valve leaflets with normal excursion. Mild mitral annulus and aortic root calcification. Normal pulmonic valve structure. Normal tricuspid valve structure. IVC dilated at 2.1 cm with physiologic collapse. Assessment/Plan 1. Paroxysmal atrial fibrillation, On Coreg 6.25 bid and Eliquis held for surgery. 2. Hypertension, Procardia XL 60 mg daily and Coreg 6.25 bid. 3. Hyperlipidemia, on Lipitor. 4. Status post right [id number] amputation and infection at the site, the patient on IV antibiotic per Infectious Diseases with vancomycin and Zosyn.OK to proceed with higher level amputation. Echo EF 55% DW RN Subjective Subjective Comfortable awaiting surgery Friday. No chest pain or SOB. Objective Last 24 Hour Vital Signs Date Time Temp Pulse Resp B/P (MAP) Pulse Ox O2 Delivery O2 Flow Rate FiO2 06/06/17 14:16 97.8 06/06/17 12:00 97.8 75 19 154/72 97 Room Air 06/06/17 08:32 78 157/78 06/06/17 08:31 78 157/78 06/06/17 08:00 97.4 78 19 157/78 96 Room Air 06/06/17 07:51 79 18 Room Air 06/06/17 04:00 97.9 79 18 137/84 97 Room Air 06/06/17 00:00 98.2 85 18 152/75 95 Room Air 06/05/17 20:50 77 20 Room Air 06/05/17 20:44 73 152/83 06/05/17 20:00 97.8 76 18 160/71 96 Room Air 06/05/17 16:00 98.4 73 18 152/83 96 Room Air Intake and Output 06/06/17 06/07/17 19:00 07:00 Intake Total 1460 ml Output Total 1000 ml Balance 460 ml Intake Oral 710 ml IV Total 750 ml Output Urine Total 1000 ml # Voids 3 # Bowel Movements 2 Laboratory Tests Test 06/06/17 05:00 White Blood Count 11.2 K/UL (4.8-10.8) H Red Blood Count 2.95 M/UL (4.70-6.10) L Hemoglobin 8.8 G/DL (14.2-18.0) L Hematocrit 27.1 % (42.0-52.0) L Mean Corpuscular Volume 92 FL (80-99) Mean Corpuscular Hemoglobin 29.9 PG (27.0-31.0) Mean Corpuscular Hemoglobin Concent 32.6 G/DL (32.0-36.0) Red Cell Distribution Width 14.6 % (11.6-14.8) Platelet Count 304 K/UL (150-450) Mean Platelet Volume 7.4 FL (6.5-10.1) Neutrophils (%) (Auto) 67.4 % (45.0-75.0) Lymphocytes (%) (Auto) 16.0 % (20.0-45.0) L Monocytes (%) (Auto) 12.7 % (1.0-10.0) H Eosinophils (%) (Auto) 2.8 % (0.0-3.0) Basophils (%) (Auto) 1.1 % (0.0-2.0) Sodium Level 139 mEQ/L (135-145) Potassium Level 4.7 mEQ/L (3.4-4.9) Chloride Level 107 mEQ/L (98-107) Carbon Dioxide Level 19 mEQ/L (20-30) L Anion Gap 13 (5-15) Blood Urea Nitrogen 22 mg/dL (7-23) Creatinine 1.9 mg/dL (0.7-1.2) H Estimat Glomerular Filtration Rate 43.1 mL/min (>60) Glucose Level 135 mg/dL (74-106) H Calcium Level 7.8 mg/dL (8.6-10.2) L Objective HEAD AND NECK: Showed no JVD or carotid bruits. LUNGS: Clear. CARDIOVASCULAR: Shows regular S1 and S2 with no gallop. ABDOMEN: Soft. Extremities: Status post right [id number] amputation MADI MAYBERRY Jun 06, 2017 15:12
[2017-06-06 16:00] VITALS: BP 176/76
--- NOTE | 2017-06-06 17:28 | Internal Med Progress Note ---
Subjective Date of Service: Jun 06, 2017 Physician Name Felton Smalls Attending Physician Bruno Serrato MD Current Medications Medications (Trade) Dose Ordered Sig/Dragan Route PRN Reason Start Time Stop Time Status Last Admin Dose Admin Acetaminophen (Tylenol) 650 mg Q4H PRN ORAL fever 06/02/17 17:00 06/29/17 16:59 Albuterol/ Ipratropium (DuoNeb 0.5-3(2.5)mg/3ml) 3 ml Q4H PRN HHN Shortness of Breath 06/02/17 17:00 06/07/17 16:59 Atorvastatin Calcium (Lipitor) 80 mg BEDTIME ORAL 06/02/17 21:00 06/30/17 20:59 06/05/17 20:43 Carvedilol (Coreg) 6.25 mg EVERY 12 HOURS ORAL 06/02/17 21:00 07/02/17 20:59 06/06/17 08:31 Ceftriaxone Sodium 2 gm/ Dextrose 110 ml @ 220 mls/hr Q24H IVPB 06/03/17 21:00 06/10/17 20:59 06/05/17 20:44 Clonidine HCl (Catapres) 0.1 mg Q4H PRN ORAL sbp more than 160 06/02/17 17:00 07/02/17 16:59 06/06/17 16:35 Dextrose (Dextrose 50%) STAT PRN IV Hypoglycemia 06/02/17 17:00 07/02/17 16:59 Gabapentin (Neurontin) 300 mg BEDTIME ORAL 06/02/17 21:00 07/02/17 20:59 06/05/17 20:44 Insulin Aspart (NovoLOG) BEFORE MEALS AND HS SUBQ 06/02/17 17:30 06/30/17 17:29 06/06/17 05:15 Insulin Aspart (NovoLOG) 6 units NOVOTIAC SUBQ 06/03/17 11:50 07/03/17 11:49 06/06/17 12:39 Insulin Detemir (Levemir) 15 units BEDTIME SUBQ 06/03/17 21:00 07/03/17 20:59 06/04/17 20:41 Lansoprazole (Prevacid) 30 mg DAILY ORAL 06/03/17 09:00 06/30/17 09:44 06/06/17 08:32 Morphine Sulfate (Morphine Sulfate) 2 mg Q4H PRN IVP severe pain 7-10 06/02/17 17:00 06/09/17 16:59 06/06/17 13:46 Nifedipine (Procardia XL) 60 mg DAILY ORAL 06/03/17 09:00 06/30/17 09:44 06/06/17 08:32 Nitroglycerin (Ntg) 0.4 mg Q5M X 3 DOSES PRN SL Prn Chest Pain 06/02/17 17:00 06/29/17 16:59 Ondansetron HCl (Zofran) 4 mg Q6H PRN IVP Nausea & Vomiting 06/02/17 17:00 06/29/17 16:59 Polyethylene Glycol (Miralax) 17 gm HSPRN PRN ORAL Constipation 06/02/17 17:00 06/29/17 16:59 Sodium Chloride 1,000 ml @ 100 mls/hr Q10H IVLG 06/02/17 17:30 06/30/17 17:29 06/06/17 11:41 Tamsulosin HCl (Flomax) 0.4 mg Q12HR ORAL 06/02/17 21:00 06/30/17 20:59 06/06/17 08:31 Allergies: Coded Allergies: No Known Allergies (Unverified , 04/25/17) ROS Limited/Unobtainable: No Constitutional: Reports: no symptoms HEENT: Reports: no symptoms Cardiovascular: Reports: no symptoms Respiratory: Reports: no symptoms Gastrointestinal/Abdominal: Reports: no symptoms Genitourinary: Reports: no symptoms Neurologic/Psychiatric: Reports: no symptoms Subjective 66 YO M admitted with uncontroled diabetes and BKA pain. Now osteomyelitis right BKA stump-surgery scheduled 06/09/17.. Cover for Int Med-Dr Serrato. Objective Last Vital Signs Date Time Temp Pulse Resp B/P (MAP) Pulse Ox O2 Delivery O2 Flow Rate FiO2 06/06/17 16:35 176/76 06/06/17 16:00 98.3 74 18 98 Room Air 06/04/17 19:55 21 Laboratory Tests Test 06/06/17 05:00 White Blood Count 11.2 K/UL (4.8-10.8) H Red Blood Count 2.95 M/UL (4.70-6.10) L Hemoglobin 8.8 G/DL (14.2-18.0) L Hematocrit 27.1 % (42.0-52.0) L Mean Corpuscular Volume 92 FL (80-99) Mean Corpuscular Hemoglobin 29.9 PG (27.0-31.0) Mean Corpuscular Hemoglobin Concent 32.6 G/DL (32.0-36.0) Red Cell Distribution Width 14.6 % (11.6-14.8) Platelet Count 304 K/UL (150-450) Mean Platelet Volume 7.4 FL (6.5-10.1) Neutrophils (%) (Auto) 67.4 % (45.0-75.0) Lymphocytes (%) (Auto) 16.0 % (20.0-45.0) L Monocytes (%) (Auto) 12.7 % (1.0-10.0) H Eosinophils (%) (Auto) 2.8 % (0.0-3.0) Basophils (%) (Auto) 1.1 % (0.0-2.0) Sodium Level 139 mEQ/L (135-145) Potassium Level 4.7 mEQ/L (3.4-4.9) Chloride Level 107 mEQ/L (98-107) Carbon Dioxide Level 19 mEQ/L (20-30) L Anion Gap 13 (5-15) Blood Urea Nitrogen 22 mg/dL (7-23) Creatinine 1.9 mg/dL (0.7-1.2) H Estimat Glomerular Filtration Rate 43.1 mL/min (>60) Glucose Level 135 mg/dL (74-106) H Calcium Level 7.8 mg/dL (8.6-10.2) L Intake and Output 06/06/17 06/07/17 19:00 07:00 Intake Total 1560 ml Output Total 1000 ml Balance 560 ml Intake Oral 710 ml IV Total 850 ml Output Urine Total 1000 ml # Voids 3 # Bowel Movements 2 Objective General Appearance: alert, mild distress, thin EENT: PERRL/EOMI, normal ENT inspection Neck: non-tender, normal alignment, supple Cardiovascular: normal peripheral pulses, normal rate, regular rhythm, no gallop/murmur, no JVD Respiratory/Chest: chest wall non-tender, lungs clear, normal breath sounds, no respiratory distress, no accessory muscle use Abdomen: normal bowel sounds, non tender, soft, no organomegaly, no mass Extremities: other - right BKA Neurologic: able bodied seaman II-XII grossly normal, no motor/sensory deficits Skin: normal pigmentation, warm/dry Assessment/Plan Problem List: (1) Hypercholesteremia Assessment & Plan: continue lipitor (2) Atrial fibrillation Assessment & Plan: see cardiology note. (3) Diabetes mellitus type II, uncontrolled Assessment & Plan: Continue novolog and levemir per endocrinology. See Endocrinology consult. (4) Right BKA infection Assessment & Plan: See ID note. Continue Zosyn. Wound care. Scheduled for BKA revision vs AKA on 06/09/17-see surgery note.. (5) Syncope (6) HTN (hypertension) Assessment & Plan: Continue Procardia (7) Osteomyelitis of right tibia Assessment & Plan: Continue antibiotic per ID. May require right Above the knee amputation per surgery-see note. Status: unchanged FELTON SMALLS Jun 06, 2017 17:28
--- NOTE | 2017-06-06 18:49 | General Progress Note ---
Assessment/Plan Problem List: (1) Uncontrolled diabetes mellitus ICD Codes: E11.65 - Type 2 diabetes mellitus with hyperglycemia SNOMED: 362355770, 22906656 (2) HTN (hypertension) ICD Codes: I10 - Essential (primary) hypertension SNOMED: 16252567 (3) BPH (benign prostatic hyperplasia) ICD Codes: N40.0 - Benign prostatic hyperplasia without lower urinary tract symptoms SNOMED: 685881190, 982227171 (4) Right BKA infection ICD Codes: T87.43 - Infection of amputation stump, right lower extremity SNOMED: 476040711 (5) Renal failure ICD Codes: N19 - Unspecified kidney failure SNOMED: 85404856 Assessment/Plan continue Levemir 15 units qhs continue Novolog 6 units ac tid + SSI Subjective Allergies: Coded Allergies: No Known Allergies (Unverified , 04/25/17) All Systems: reviewed and negative except above Subjective events noted Objective Last 24 Hour Vital Signs Date Time Temp Pulse Resp B/P (MAP) Pulse Ox O2 Delivery O2 Flow Rate FiO2 06/06/17 16:35 176/76 06/06/17 16:00 98.3 74 18 176/76 98 Room Air 06/06/17 14:16 97.8 06/06/17 12:00 97.8 75 19 154/72 97 Room Air 06/06/17 08:32 78 157/78 06/06/17 08:31 78 157/78 06/06/17 08:00 97.4 78 19 157/78 96 Room Air 06/06/17 07:51 79 18 Room Air 06/06/17 04:00 97.9 79 18 137/84 97 Room Air 06/06/17 00:00 98.2 85 18 152/75 95 Room Air 06/05/17 20:50 77 20 Room Air 06/05/17 20:44 73 152/83 06/05/17 20:00 97.8 76 18 160/71 96 Room Air Intake and Output 06/06/17 06/07/17 19:00 07:00 Intake Total 2210 ml Output Total 1400 ml Balance 810 ml Intake Oral 1060 ml IV Total 1150 ml Output Urine Total 1400 ml # Voids 4 # Bowel Movements 2 Laboratory Tests 06/06/17 05:00: White Blood Count 11.2H, Red Blood Count 2.95L, Hemoglobin 8.8L, Hematocrit 27.1L, Mean Corpuscular Volume 92, Mean Corpuscular Hemoglobin 29.9, Mean Corpuscular Hemoglobin Concent 32.6, Red Cell Distribution Width 14.6, Platelet Count 304, Mean Platelet Volume 7.4, Neutrophils (%) (Auto) 67.4, Lymphocytes (% ) (Auto) 16.0L, Monocytes (%) (Auto) 12.7H, Eosinophils (%) (Auto) 2.8, Basophils (%) (Auto) 1.1, Sodium Level 139, Potassium Level 4.7, Chloride Level 107, Carbon Dioxide Level 19L, Anion Gap 13, Blood Urea Nitrogen 22, Creatinine 1.9H, Estimat Glomerular Filtration Rate 43.1, Glucose Level 135H, Calcium Level 7.8L Height (Feet): 6 Height (Inches): 2.00 Weight (Pounds): 112 General Appearance: no apparent distress Neck: normal alignment Cardiovascular: regular rhythm Respiratory/Chest: lungs clear Abdomen: normal bowel sounds Pelvis: normal external exam Extremities: other - right BKA Objective Current Medications Medications (Trade) Dose Ordered Sig/Dragan Route PRN Reason Start Time Stop Time Status Last Admin Dose Admin Acetaminophen (Tylenol) 650 mg Q4H PRN ORAL fever 06/02/17 17:00 06/29/17 16:59 Albuterol/ Ipratropium (DuoNeb 0.5-3(2.5)mg/3ml) 3 ml Q4H PRN HHN Shortness of Breath 06/02/17 17:00 06/07/17 16:59 Atorvastatin Calcium (Lipitor) 80 mg BEDTIME ORAL 06/02/17 21:00 06/30/17 20:59 06/05/17 20:43 Carvedilol (Coreg) 6.25 mg EVERY 12 HOURS ORAL 06/02/17 21:00 07/02/17 20:59 06/06/17 08:31 Ceftriaxone Sodium 2 gm/ Dextrose 110 ml @ 220 mls/hr Q24H IVPB 06/03/17 21:00 06/10/17 20:59 06/05/17 20:44 Clonidine HCl (Catapres) 0.1 mg Q4H PRN ORAL sbp more than 160 06/02/17 17:00 07/02/17 16:59 06/06/17 16:35 Dextrose (Dextrose 50%) STAT PRN IV Hypoglycemia 06/02/17 17:00 07/02/17 16:59 Gabapentin (Neurontin) 300 mg BEDTIME ORAL 06/02/17 21:00 07/02/17 20:59 06/05/17 20:44 Insulin Aspart (NovoLOG) BEFORE MEALS AND HS SUBQ 06/02/17 17:30 06/30/17 17:29 06/06/17 05:15 Insulin Aspart (NovoLOG) 6 units NOVOTIAC SUBQ 06/03/17 11:50 07/03/17 11:49 06/06/17 12:39 Insulin Detemir (Levemir) 15 units BEDTIME SUBQ 06/03/17 21:00 07/03/17 20:59 06/04/17 20:41 Lansoprazole (Prevacid) 30 mg DAILY ORAL 06/03/17 09:00 06/30/17 09:44 06/06/17 08:32 Morphine Sulfate (Morphine Sulfate) 2 mg Q4H PRN IVP severe pain 7-10 06/02/17 17:00 06/09/17 16:59 06/06/17 18:33 Nifedipine (Procardia XL) 60 mg DAILY ORAL 06/03/17 09:00 06/30/17 09:44 06/06/17 08:32 Nitroglycerin (Ntg) 0.4 mg Q5M X 3 DOSES PRN SL Prn Chest Pain 06/02/17 17:00 06/29/17 16:59 Ondansetron HCl (Zofran) 4 mg Q6H PRN IVP Nausea & Vomiting 06/02/17 17:00 06/29/17 16:59 Polyethylene Glycol (Miralax) 17 gm HSPRN PRN ORAL Constipation 06/02/17 17:00 06/29/17 16:59 Sodium Chloride 1,000 ml @ 100 mls/hr Q10H IVLG 06/02/17 17:30 06/30/17 17:29 06/06/17 11:41 Tamsulosin HCl (Flomax) 0.4 mg Q12HR ORAL 06/02/17 21:00 06/30/17 20:59 06/06/17 08:31 Item Value Date Time Bedside Blood Glucose 121 mg/dl H 06/06/17 1825 Bedside Blood Glucose 95 mg/dl 06/06/17 1239 Bedside Blood Glucose 146 mg/dl H 06/06/17 0630 CHRISTIAN MARIN Jun 06, 2017 18:49
[2017-06-06 20:00] VITALS: BP 165/90
--- NOTE | 2017-06-06 21:14 | Infectious Diseases Prog Note ---
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 Ceftriaxone, levo/cipro, Bactrim, Zosyn), +4 E. cloace (S. Ceftriaxone, levo/Cipro, Zosyn; R bactrim); possible that these represents colonizer as wound cx was superficial and likely pathogens could still be Strep sp and MSSA. -s/p admission in [facility] in March for stump infection s/p 4 weeks of PO abx (pt unsure of abx) -06/03 ESR 116, CRP 6.1 Leukocytosis, mild- persistent -Bcx NTD Pyuria/Bacteriuria -u/a WBC 5-10, nit +, leuk +3; ucx >100K Serratia marcenses (S. CTX, zosy, Cipro, bactrim) NOHELIA on CKD, improving -renal U/s: Mild right hydronephrosis.Left kidney is normal. No left hydronephrosis. Left renal cyst is noted. Distended urinary bladder with wall thickening. There is layering debris within the urinary bladder. Cystitis cannot be excluded Hyperlipidemia. History of hypoglycemia. Hypertension. Diabetes. Atrial fibrillation. PLAN: -Continue IV Ceftriaxone #4 (abx d#7) -s/p 5d IV Vanco, 4d Zosyn 06/03 -will monitor closely for worsening of symptoms,fever, leukocytosis as organisms isolated has potential of ESBL inducibility -For revision of stump on 05/2017 -if amputation is done and removal of all infected bone, then will require short abx course of 5-7 days after surgery -if residual OM, then prolonged abx for 6 weeks -awaiting records from [facility] (RN to follow up) -Trend WBC -Monitor CBC/ BMP, temperatures -Monitor cultures -obtain records at [facility] for recent admission (cx obtained,a bx given, etc) -wound care Discussed with RN Subjective Allergies: Coded Allergies: No Known Allergies (Unverified , 04/25/17) Subjective afebrile VSS at RA leukocytosis persistent at 11 Bcx Neg awaiting records from [facility] Objective Vital Signs Last 24 Hour Vital Signs Date Time Temp Pulse Resp B/P (MAP) Pulse Ox O2 Delivery O2 Flow Rate FiO2 06/06/17 20:00 97.6 80 19 165/90 93 Room Air 06/06/17 19:56 73 18 Room Air 06/06/17 19:07 98.3 06/06/17 16:35 176/76 06/06/17 16:00 98.3 74 18 176/76 98 Room Air 06/06/17 12:00 97.8 75 19 154/72 97 Room Air 06/06/17 08:32 78 157/78 06/06/17 08:31 78 157/78 06/06/17 08:00 97.4 78 19 157/78 96 Room Air 06/06/17 07:51 79 18 Room Air 06/06/17 04:00 97.9 79 18 137/84 97 Room Air 06/06/17 00:00 98.2 85 18 152/75 95 Room Air Height (Feet): 6 Height (Inches): 2.00 Weight (Pounds): 112 Objective HEENT: No pale conjunctivae. No icterus. NECK: No lymphadenopathy. CHEST: Clear. HEART: S1 and S2. ABDOMEN: Soft and nontender. EXTREMITIES: Right BKA stump has open wound wit probing to bone and foul smellig odor, no purulence discharge, no surroudign skin cellulitis. NEUROLOGIC: Awake and alert. Laboratory Tests Test 06/06/17 05:00 White Blood Count 11.2 K/UL (4.8-10.8) H Red Blood Count 2.95 M/UL (4.70-6.10) L Hemoglobin 8.8 G/DL (14.2-18.0) L Hematocrit 27.1 % (42.0-52.0) L Mean Corpuscular Volume 92 FL (80-99) Mean Corpuscular Hemoglobin 29.9 PG (27.0-31.0) Mean Corpuscular Hemoglobin Concent 32.6 G/DL (32.0-36.0) Red Cell Distribution Width 14.6 % (11.6-14.8) Platelet Count 304 K/UL (150-450) Mean Platelet Volume 7.4 FL (6.5-10.1) Neutrophils (%) (Auto) 67.4 % (45.0-75.0) Lymphocytes (%) (Auto) 16.0 % (20.0-45.0) L Monocytes (%) (Auto) 12.7 % (1.0-10.0) H Eosinophils (%) (Auto) 2.8 % (0.0-3.0) Basophils (%) (Auto) 1.1 % (0.0-2.0) Sodium Level 139 mEQ/L (135-145) Potassium Level 4.7 mEQ/L (3.4-4.9) Chloride Level 107 mEQ/L (98-107) Carbon Dioxide Level 19 mEQ/L (20-30) L Anion Gap 13 (5-15) Blood Urea Nitrogen 22 mg/dL (7-23) Creatinine 1.9 mg/dL (0.7-1.2) H Estimat Glomerular Filtration Rate 43.1 mL/min (>60) Glucose Level 135 mg/dL (74-106) H Calcium Level 7.8 mg/dL (8.6-10.2) L Current Medications Medications (Trade) Dose Ordered Sig/Dragan Route PRN Reason Start Time Stop Time Status Last Admin Dose Admin Acetaminophen (Tylenol) 650 mg Q4H PRN ORAL fever 06/02/17 17:00 06/29/17 16:59 Albuterol/ Ipratropium (DuoNeb 0.5-3(2.5)mg/3ml) 3 ml Q4H PRN HHN Shortness of Breath 06/02/17 17:00 06/07/17 16:59 Atorvastatin Calcium (Lipitor) 80 mg BEDTIME ORAL 06/02/17 21:00 06/30/17 20:59 06/05/17 20:43 Carvedilol (Coreg) 6.25 mg EVERY 12 HOURS ORAL 06/02/17 21:00 07/02/17 20:59 06/06/17 08:31 Ceftriaxone Sodium 2 gm/ Dextrose 110 ml @ 220 mls/hr Q24H IVPB 06/03/17 21:00 06/10/17 20:59 06/05/17 20:44 Clonidine HCl (Catapres) 0.1 mg Q4H PRN ORAL sbp more than 160 06/02/17 17:00 07/02/17 16:59 06/06/17 16:35 Dextrose (Dextrose 50%) STAT PRN IV Hypoglycemia 06/02/17 17:00 07/02/17 16:59 Gabapentin (Neurontin) 300 mg BEDTIME ORAL 06/02/17 21:00 07/02/17 20:59 06/05/17 20:44 Insulin Aspart (NovoLOG) BEFORE MEALS AND HS SUBQ 06/02/17 17:30 06/30/17 17:29 06/06/17 05:15 Insulin Aspart (NovoLOG) 6 units NOVOTIAC SUBQ 06/03/17 11:50 07/03/17 11:49 06/06/17 12:39 Insulin Detemir (Levemir) 15 units BEDTIME SUBQ 06/03/17 21:00 07/03/17 20:59 06/04/17 20:41 Lansoprazole (Prevacid) 30 mg DAILY ORAL 06/03/17 09:00 06/30/17 09:44 06/06/17 08:32 Morphine Sulfate (Morphine Sulfate) 2 mg Q4H PRN IVP severe pain 7-10 06/02/17 17:00 06/09/17 16:59 06/06/17 18:33 Nifedipine (Procardia XL) 60 mg DAILY ORAL 06/03/17 09:00 06/30/17 09:44 06/06/17 08:32 Nitroglycerin (Ntg) 0.4 mg Q5M X 3 DOSES PRN SL Prn Chest Pain 06/02/17 17:00 06/29/17 16:59 Ondansetron HCl (Zofran) 4 mg Q6H PRN IVP Nausea & Vomiting 06/02/17 17:00 06/29/17 16:59 Polyethylene Glycol (Miralax) 17 gm HSPRN PRN ORAL Constipation 06/02/17 17:00 06/29/17 16:59 Sodium Chloride 1,000 ml @ 100 mls/hr Q10H IVLG 06/02/17 17:30 06/30/17 17:29 06/06/17 11:41 Tamsulosin HCl (Flomax) 0.4 mg Q12HR ORAL 06/02/17 21:00 06/30/17 20:59 06/06/17 08:31 Liz Guevara M.D. Jun 06, 2017 21:14
[2017-06-06] MEDS: Atorvastatin 80mg tab ORAL SCH (21:39)
[2017-06-06] MEDS: cefTRIAXone 2 GM in D5W 110 ML IVPB SCH (21:39)
[2017-06-06] MEDS: Levemir Flexpen SUBQ SCH (21:50)
[2017-06-07] MEDS: Morphine Sulfate 2mg/ml Inj IVP PRN ×5 (00:20→19:04)
[2017-06-07 00:38] VITALS: BP 158/79
[2017-06-07 04:00] VITALS: BP 153/76
[2017-06-07] MEDS: NovoLOG Insulin Flexpen SUBQ SCH ×7 (06:36→21:00)
[2017-06-07 07:12] LABS: LYMPHOCYTES % (AUTO) 11.9 % (20.0-45.0); MEAN CORPUSCULAR HEMOGLOBIN 29.4 PG (27.0-31.0); MEAN CORPUSCULAR HGB CONC 32.1 G/DL (32.0-36.0); MEAN CORPUSCULAR VOLUME 91 FL (80-99); MEAN PLATELET VOLUME 7.1 FL (6.5-10.1); MONOCYTES % (AUTO) 12.3 % (1.0-10.0); NEUTROPHILS % (AUTO) 72.8 % (45.0-75.0); PLATELET COUNT 279 K/UL (150-450); RED BLOOD COUNT 2.89 M/UL (4.70-6.10); RED CELL DISTRIBUTION WIDTH 15.3 % (11.6-14.8); WHITE BLOOD COUNT 12.4 K/UL (4.8-10.8)
[2017-06-07 07:26] LABS: CALCIUM 8.2 mg/dL (8.6-10.2); GLOMERULAR FILTRATION RATE 40.7 mL/min (>60); POTASSIUM 4.9 mEQ/L (3.4-4.9)
[2017-06-07 08:00] VITALS: BP 159/78
[2017-06-07] MEDS: Carvedilol 6.25mg Tab ORAL SCH ×2 (08:47→21:23)
[2017-06-07] MEDS: Tamsulosin 0.4mg cap ORAL SCH ×2 (08:47→21:19)
--- NOTE | 2017-06-07 09:10 | Infectious Diseases Prog Note ---
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 Ceftriaxone, levo/cipro, Bactrim, Zosyn), +4 E. cloace (S. Ceftriaxone, levo/Cipro, Zosyn; R bactrim); possible that these represents colonizer as wound cx was superficial and likely pathogens could still be Strep sp and MSSA. -s/p admission in [facility] in March for stump infection s/p 4 weeks of PO abx (pt unsure of abx) -06/03 ESR 116, CRP 6.1 Leukocytosis, mild- persistent -Bcx NTD Pyuria/Bacteriuria -u/a WBC 5-10, nit +, leuk +3; ucx >100K Serratia marcenses (S. CTX, zosy, Cipro, bactrim) NOHELIA on CKD, improving -renal U/s: Mild right hydronephrosis.Left kidney is normal. No left hydronephrosis. Left renal cyst is noted. Distended urinary bladder with wall thickening. There is layering debris within the urinary bladder. Cystitis cannot be excluded Hyperlipidemia. History of hypoglycemia. Hypertension. Diabetes. Atrial fibrillation. PLAN: -Continue IV Ceftriaxone #5 (abx d#8) -s/p 5d IV Vanco, 4d Zosyn 06/03 -will monitor closely for worsening of symptoms,fever, leukocytosis as organisms isolated has potential of ESBL inducibility -For revision of stump on 05/2017 -if amputation is done and removal of all infected bone, then will require short abx course of 5-7 days after surgery -if residual OM, then prolonged abx for 6 weeks -awaiting records from [facility] (RN to follow up); pending -Trend WBC -Monitor CBC/ BMP, temperatures -Monitor cultures -obtain records at [facility] for recent admission (cx obtained,a bx given, etc) -wound care Discussed with RN Subjective Allergies: Coded Allergies: No Known Allergies (Unverified , 04/25/17) Subjective afebrile VSS at RA leukocytosis persistent at 11-12 Bcx Neg awaiting records from [facility] Objective Vital Signs Last 24 Hour Vital Signs Date Time Temp Pulse Resp B/P (MAP) Pulse Ox O2 Delivery O2 Flow Rate FiO2 06/07/17 08:47 78 159/78 06/07/17 08:47 78 159/78 06/07/17 08:00 98.2 78 20 159/78 94 Room Air 06/07/17 04:00 98.5 79 20 153/76 96 Room Air 06/07/17 00:38 98.1 76 20 158/79 95 Room Air 06/06/17 21:51 80 165/90 06/06/17 20:00 97.6 80 19 165/90 93 Room Air 06/06/17 19:56 73 18 Room Air 06/06/17 19:07 98.3 06/06/17 16:35 176/76 06/06/17 16:00 98.3 74 18 176/76 98 Room Air 06/06/17 12:00 97.8 75 19 154/72 97 Room Air Height (Feet): 6 Height (Inches): 2.00 Weight (Pounds): 112 Objective HEENT: No pale conjunctivae. No icterus. NECK: No lymphadenopathy. CHEST: Clear. HEART: S1 and S2. ABDOMEN: Soft and nontender. EXTREMITIES: Right BKA stump has open wound wit probing to bone and foul smellig odor, no purulence discharge, no surroudign skin cellulitis. NEUROLOGIC: Awake and alert. Laboratory Tests Test 06/07/17 05:35 White Blood Count 12.4 K/UL (4.8-10.8) H Red Blood Count 2.89 M/UL (4.70-6.10) L Hemoglobin 8.5 G/DL (14.2-18.0) L Hematocrit 26.4 % (42.0-52.0) L Mean Corpuscular Volume 91 FL (80-99) Mean Corpuscular Hemoglobin 29.4 PG (27.0-31.0) Mean Corpuscular Hemoglobin Concent 32.1 G/DL (32.0-36.0) Red Cell Distribution Width 15.3 % (11.6-14.8) H Platelet Count 279 K/UL (150-450) Mean Platelet Volume 7.1 FL (6.5-10.1) Neutrophils (%) (Auto) 72.8 % (45.0-75.0) Lymphocytes (%) (Auto) 11.9 % (20.0-45.0) L Monocytes (%) (Auto) 12.3 % (1.0-10.0) H Eosinophils (%) (Auto) 2.0 % (0.0-3.0) Basophils (%) (Auto) 1.0 % (0.0-2.0) Sodium Level 139 mEQ/L (135-145) Potassium Level 4.9 mEQ/L (3.4-4.9) Chloride Level 106 mEQ/L (98-107) Carbon Dioxide Level 19 mEQ/L (20-30) L Anion Gap 14 (5-15) Blood Urea Nitrogen 29 mg/dL (7-23) H Creatinine 2.0 mg/dL (0.7-1.2) H Estimat Glomerular Filtration Rate 40.7 mL/min (>60) Glucose Level 207 mg/dL (74-106) H Calcium Level 8.2 mg/dL (8.6-10.2) L Current Medications Medications (Trade) Dose Ordered Sig/Dragan Route PRN Reason Start Time Stop Time Status Last Admin Dose Admin Acetaminophen (Tylenol) 650 mg Q4H PRN ORAL fever 06/02/17 17:00 06/29/17 16:59 Albuterol/ Ipratropium (DuoNeb 0.5-3(2.5)mg/3ml) 3 ml Q4H PRN HHN Shortness of Breath 06/02/17 17:00 06/07/17 16:59 Atorvastatin Calcium (Lipitor) 80 mg BEDTIME ORAL 06/02/17 21:00 06/30/17 20:59 06/06/17 21:39 Carvedilol (Coreg) 6.25 mg EVERY 12 HOURS ORAL 06/02/17 21:00 07/02/17 20:59 06/07/17 08:47 Ceftriaxone Sodium 2 gm/ Dextrose 110 ml @ 220 mls/hr Q24H IVPB 06/03/17 21:00 06/10/17 20:59 06/06/17 21:39 Clonidine HCl (Catapres) 0.1 mg Q4H PRN ORAL sbp more than 160 06/02/17 17:00 07/02/17 16:59 06/06/17 16:35 Dextrose (Dextrose 50%) STAT PRN IV Hypoglycemia 06/02/17 17:00 07/02/17 16:59 Gabapentin (Neurontin) 300 mg BEDTIME ORAL 06/02/17 21:00 07/02/17 20:59 06/06/17 21:39 Insulin Aspart (NovoLOG) BEFORE MEALS AND HS SUBQ 06/02/17 17:30 06/30/17 17:29 06/07/17 06:37 Insulin Aspart (NovoLOG) 6 units NOVOTIAC SUBQ 06/03/17 11:50 07/03/17 11:49 06/07/17 06:36 Insulin Detemir (Levemir) 15 units BEDTIME SUBQ 06/03/17 21:00 07/03/17 20:59 06/06/17 21:50 Lansoprazole (Prevacid) 30 mg DAILY ORAL 06/03/17 09:00 06/30/17 09:44 06/07/17 08:48 Morphine Sulfate (Morphine Sulfate) 2 mg Q4H PRN IVP severe pain 7-10 06/02/17 17:00 06/09/17 16:59 06/07/17 08:49 Nifedipine (Procardia XL) 60 mg DAILY ORAL 06/03/17 09:00 06/30/17 09:44 06/07/17 08:47 Nitroglycerin (Ntg) 0.4 mg Q5M X 3 DOSES PRN SL Prn Chest Pain 06/02/17 17:00 06/29/17 16:59 Ondansetron HCl (Zofran) 4 mg Q6H PRN IVP Nausea & Vomiting 06/02/17 17:00 06/29/17 16:59 06/07/17 08:57 Polyethylene Glycol (Miralax) 17 gm HSPRN PRN ORAL Constipation 06/02/17 17:00 06/29/17 16:59 Sodium Chloride 1,000 ml @ 100 mls/hr Q10H IVLG 06/02/17 17:30 06/30/17 17:29 06/06/17 21:40 Tamsulosin HCl (Flomax) 0.4 mg Q12HR ORAL 06/02/17 21:00 06/30/17 20:59 06/07/17 08:47 Liz Guevara M.D. Jun 07, 2017 09:10
--- NOTE | 2017-06-07 09:52 | General Progress Note ---
Assessment/Plan Status: stable Assessment/Plan admitted for syncope Has DM OOC h/o A fib acute renal failure on CRI previous Cr 1.9 now 2.1 h/o bladder outlet obstruction) per AILYN in past Also due to DM and HTN, has 3+ Proteinuria anemia DM HTN R BKA stump wound BLE pain severe protein calorie malnutrition Urinary retention due to bladder out let Obstruction bladder outlet obstruction Plan: Surgical intervention for Osteo on 06/09 BS control Optimize BS and BP status Avoid nephrotoxics Flomax BID Anemia crawford Subjective ROS Limited/Unobtainable: No Constitutional: Reports: malaise Allergies: Coded Allergies: No Known Allergies (Unverified , 04/25/17) Objective Last 24 Hour Vital Signs Date Time Temp Pulse Resp B/P (MAP) Pulse Ox O2 Delivery O2 Flow Rate FiO2 06/07/17 09:19 98.2 06/07/17 08:47 78 159/78 06/07/17 08:47 78 159/78 06/07/17 08:00 98.2 78 20 159/78 94 Room Air 06/07/17 04:00 98.5 79 20 153/76 96 Room Air 06/07/17 00:38 98.1 76 20 158/79 95 Room Air 06/06/17 21:51 80 165/90 06/06/17 20:00 97.6 80 19 165/90 93 Room Air 06/06/17 19:56 73 18 Room Air 06/06/17 16:35 176/76 06/06/17 16:00 98.3 74 18 176/76 98 Room Air 06/06/17 12:00 97.8 75 19 154/72 97 Room Air Intake and Output 06/07/17 06/08/17 19:00 07:00 Intake Total 200 ml Balance 200 ml IV Total 200 ml Laboratory Tests 06/07/17 05:35: White Blood Count 12.4H, Red Blood Count 2.89L, Hemoglobin 8.5L, Hematocrit 26.4L, Mean Corpuscular Volume 91, Mean Corpuscular Hemoglobin 29.4, Mean Corpuscular Hemoglobin Concent 32.1, Red Cell Distribution Width 15.3H, Platelet Count 279, Mean Platelet Volume 7.1, Neutrophils (%) (Auto) 72.8, Lymphocytes (%) (Auto) 11.9L, Monocytes (%) (Auto) 12.3H, Eosinophils (%) (Auto ) 2.0, Basophils (%) (Auto) 1.0, Sodium Level 139, Potassium Level 4.9, Chloride Level 106, Carbon Dioxide Level 19L, Anion Gap 14, Blood Urea Nitrogen 29H, Creatinine 2.0H, Estimat Glomerular Filtration Rate 40.7, Glucose Level 207H, Calcium Level 8.2L Height (Feet): 6 Height (Inches): 2.00 Weight (Pounds): 112 General Appearance: no apparent distress Objective no change in PE TYE TINAJERO Jun 07, 2017 09:52
[2017-06-07 12:00] VITALS: BP 166/78
--- NOTE | 2017-06-07 13:01 | Internal Med Progress Note ---
Subjective Date of Service: Jun 07, 2017 Physician Name Maryanne Smalls Attending Physician Bruno Serrato MD Current Medications Medications (Trade) Dose Ordered Sig/Dragan Route PRN Reason Start Time Stop Time Status Last Admin Dose Admin Acetaminophen (Tylenol) 650 mg Q4H PRN ORAL fever 06/02/17 17:00 06/29/17 16:59 Albuterol/ Ipratropium (DuoNeb 0.5-3(2.5)mg/3ml) 3 ml Q4H PRN HHN Shortness of Breath 06/02/17 17:00 06/07/17 16:59 Atorvastatin Calcium (Lipitor) 80 mg BEDTIME ORAL 06/02/17 21:00 06/30/17 20:59 06/06/17 21:39 Carvedilol (Coreg) 6.25 mg EVERY 12 HOURS ORAL 06/02/17 21:00 07/02/17 20:59 06/07/17 08:47 Ceftriaxone Sodium 2 gm/ Dextrose 110 ml @ 220 mls/hr Q24H IVPB 06/03/17 21:00 06/10/17 20:59 06/06/17 21:39 Clonidine HCl (Catapres) 0.1 mg Q4H PRN ORAL sbp more than 160 06/02/17 17:00 07/02/17 16:59 06/06/17 16:35 Dextrose (Dextrose 50%) STAT PRN IV Hypoglycemia 06/02/17 17:00 07/02/17 16:59 Gabapentin (Neurontin) 300 mg BEDTIME ORAL 06/02/17 21:00 07/02/17 20:59 06/06/17 21:39 Insulin Aspart (NovoLOG) BEFORE MEALS AND HS SUBQ 06/02/17 17:30 06/30/17 17:29 06/07/17 12:36 Insulin Aspart (NovoLOG) 6 units NOVOTIAC SUBQ 06/03/17 11:50 07/03/17 11:49 06/07/17 12:37 Insulin Detemir (Levemir) 15 units BEDTIME SUBQ 06/03/17 21:00 07/03/17 20:59 06/06/17 21:50 Lansoprazole (Prevacid) 30 mg DAILY ORAL 06/03/17 09:00 06/30/17 09:44 06/07/17 08:48 Morphine Sulfate (Morphine Sulfate) 2 mg Q4H PRN IVP severe pain 7-10 06/02/17 17:00 06/09/17 16:59 06/07/17 08:49 Nifedipine (Procardia XL) 60 mg DAILY ORAL 06/03/17 09:00 06/30/17 09:44 06/07/17 08:47 Nitroglycerin (Ntg) 0.4 mg Q5M X 3 DOSES PRN SL Prn Chest Pain 06/02/17 17:00 06/29/17 16:59 Ondansetron HCl (Zofran) 4 mg Q6H PRN IVP Nausea & Vomiting 06/02/17 17:00 06/29/17 16:59 06/07/17 08:57 Polyethylene Glycol (Miralax) 17 gm HSPRN PRN ORAL Constipation 06/02/17 17:00 06/29/17 16:59 Sodium Chloride 1,000 ml @ 100 mls/hr Q10H IVLG 06/02/17 17:30 06/30/17 17:29 06/07/17 11:31 Tamsulosin HCl (Flomax) 0.4 mg Q12HR ORAL 06/02/17 21:00 06/30/17 20:59 06/07/17 08:47 Allergies: Coded Allergies: No Known Allergies (Unverified , 04/25/17) ROS Limited/Unobtainable: No Constitutional: Reports: no symptoms HEENT: Reports: no symptoms Cardiovascular: Reports: no symptoms Respiratory: Reports: no symptoms Gastrointestinal/Abdominal: Reports: no symptoms Genitourinary: Reports: no symptoms Neurologic/Psychiatric: Reports: no symptoms Subjective 66 YO M admitted with uncontroled diabetes and BKA pain. Now osteomyelitis right BKA stump-surgery scheduled 06/09/17.. Cover for Int Jonathan-Dr Serrato. Objective Last Vital Signs Date Time Temp Pulse Resp B/P (MAP) Pulse Ox O2 Delivery O2 Flow Rate FiO2 06/07/17 09:19 98.2 06/07/17 08:47 78 159/78 06/07/17 08:30 20 Room Air 06/07/17 08:00 94 06/04/17 19:55 21 Laboratory Tests Test 06/07/17 05:35 White Blood Count 12.4 K/UL (4.8-10.8) H Red Blood Count 2.89 M/UL (4.70-6.10) L Hemoglobin 8.5 G/DL (14.2-18.0) L Hematocrit 26.4 % (42.0-52.0) L Mean Corpuscular Volume 91 FL (80-99) Mean Corpuscular Hemoglobin 29.4 PG (27.0-31.0) Mean Corpuscular Hemoglobin Concent 32.1 G/DL (32.0-36.0) Red Cell Distribution Width 15.3 % (11.6-14.8) H Platelet Count 279 K/UL (150-450) Mean Platelet Volume 7.1 FL (6.5-10.1) Neutrophils (%) (Auto) 72.8 % (45.0-75.0) Lymphocytes (%) (Auto) 11.9 % (20.0-45.0) L Monocytes (%) (Auto) 12.3 % (1.0-10.0) H Eosinophils (%) (Auto) 2.0 % (0.0-3.0) Basophils (%) (Auto) 1.0 % (0.0-2.0) Sodium Level 139 mEQ/L (135-145) Potassium Level 4.9 mEQ/L (3.4-4.9) Chloride Level 106 mEQ/L (98-107) Carbon Dioxide Level 19 mEQ/L (20-30) L Anion Gap 14 (5-15) Blood Urea Nitrogen 29 mg/dL (7-23) H Creatinine 2.0 mg/dL (0.7-1.2) H Estimat Glomerular Filtration Rate 40.7 mL/min (>60) Glucose Level 207 mg/dL (74-106) H Calcium Level 8.2 mg/dL (8.6-10.2) L Intake and Output 06/07/17 06/08/17 19:00 07:00 Intake Total 300 ml Output Total 300 ml Balance 0 ml IV Total 300 ml Output Urine Total 300 ml # Voids 1 Objective General Appearance: alert, mild distress, thin EENT: PERRL/EOMI, normal ENT inspection Neck: non-tender, normal alignment, supple Cardiovascular: normal peripheral pulses, normal rate, regular rhythm, no gallop/murmur, no JVD Respiratory/Chest: chest wall non-tender, lungs clear, normal breath sounds, no respiratory distress, no accessory muscle use Abdomen: normal bowel sounds, non tender, soft, no organomegaly, no mass Extremities: other - right BKA Neurologic: program management professional II-XII grossly normal, no motor/sensory deficits Skin: normal pigmentation, warm/dry Assessment/Plan Problem List: (1) Hypercholesteremia Assessment & Plan: continue lipitor (2) Atrial fibrillation Assessment & Plan: see cardiology note. (3) Diabetes mellitus type II, uncontrolled Assessment & Plan: Continue novolog and levemir per endocrinology. See Endocrinology consult. (4) Right BKA infection Assessment & Plan: See ID note. Continue Zosyn. Wound care. Scheduled for BKA revision vs AKA on Fri06/09/17-see surgery note.. (5) Syncope (6) HTN (hypertension) Assessment & Plan: Continue Procardia (7) Osteomyelitis of right tibia Assessment & Plan: Continue antibiotic per ID. May require right Above the knee amputation per surgery-see note. Status: unchanged MARYANNE SMALLS Jun 07, 2017 13:01
--- NOTE | 2017-06-07 14:37 | Pulmonology Progress Note ---
Assessment/Plan Problems: (1) Syncope (2) Sepsis (3) Right BKA infection (4) HTN (hypertension) (5) Diabetes mellitus (6) Renal failure (7) BPH (benign prostatic hyperplasia) Assessment/Plan renal function improving d/w surgeon for possible debridement or amputation Echo shoed previously 55% EF avoid nephrotoxic sliding scale check electrolytes scheduled for surgery now Subjective ROS Limited/Unobtainable: No Constitutional: Reports: no symptoms HEENT: Repors: no symptoms Respiratory: Reports: no symptoms Allergies: Coded Allergies: No Known Allergies (Unverified , 04/25/17) Objective Last 24 Hour Vital Signs Date Time Temp Pulse Resp B/P (MAP) Pulse Ox O2 Delivery O2 Flow Rate FiO2 06/07/17 12:00 98.0 107 20 166/78 97 Room Air 06/07/17 09:19 98.2 06/07/17 08:47 78 159/78 06/07/17 08:47 78 159/78 06/07/17 08:30 78 20 Room Air 06/07/17 08:00 98.2 78 20 159/78 94 Room Air 06/07/17 04:00 98.5 79 20 153/76 96 Room Air 06/07/17 00:38 98.1 76 20 158/79 95 Room Air 06/06/17 21:51 80 165/90 06/06/17 20:00 97.6 80 19 165/90 93 Room Air 06/06/17 19:56 73 18 Room Air 06/06/17 16:35 176/76 06/06/17 16:00 98.3 74 18 176/76 98 Room Air Intake and Output 06/07/17 06/08/17 19:00 07:00 Intake Total 650 ml Output Total 300 ml Balance 350 ml IV Total 650 ml Output Urine Total 300 ml # Voids 1 Objective General Appearance: WD/WN HEENT: normocephalic, mucous membranes moist Respiratory/Chest: chest wall non-tender, normal breath sounds Cardiovascular: normal peripheral pulses, normal rate Abdomen: normal bowel sounds, no organomegaly Laboratory Tests 06/07/17 05:35: White Blood Count 12.4H, Red Blood Count 2.89L, Hemoglobin 8.5L, Hematocrit 26.4L, Mean Corpuscular Volume 91, Mean Corpuscular Hemoglobin 29.4, Mean Corpuscular Hemoglobin Concent 32.1, Red Cell Distribution Width 15.3H, Platelet Count 279, Mean Platelet Volume 7.1, Neutrophils (%) (Auto) 72.8, Lymphocytes (%) (Auto) 11.9L, Monocytes (%) (Auto) 12.3H, Eosinophils (%) (Auto ) 2.0, Basophils (%) (Auto) 1.0, Sodium Level 139, Potassium Level 4.9, Chloride Level 106, Carbon Dioxide Level 19L, Anion Gap 14, Blood Urea Nitrogen 29H, Creatinine 2.0H, Estimat Glomerular Filtration Rate 40.7, Glucose Level 207H, Calcium Level 8.2L Current Medications Medications (Trade) Dose Ordered Sig/Dragan Route PRN Reason Start Time Stop Time Status Last Admin Dose Admin Acetaminophen (Tylenol) 650 mg Q4H PRN ORAL fever 06/02/17 17:00 06/29/17 16:59 Albuterol/ Ipratropium (DuoNeb 0.5-3(2.5)mg/3ml) 3 ml Q4H PRN HHN Shortness of Breath 06/02/17 17:00 06/07/17 16:59 Atorvastatin Calcium (Lipitor) 80 mg BEDTIME ORAL 06/02/17 21:00 06/30/17 20:59 06/06/17 21:39 Carvedilol (Coreg) 6.25 mg EVERY 12 HOURS ORAL 06/02/17 21:00 07/02/17 20:59 06/07/17 08:47 Ceftriaxone Sodium 2 gm/ Dextrose 110 ml @ 220 mls/hr Q24H IVPB 06/03/17 21:00 06/10/17 20:59 06/06/17 21:39 Clonidine HCl (Catapres) 0.1 mg Q4H PRN ORAL sbp more than 160 06/02/17 17:00 07/02/17 16:59 06/06/17 16:35 Dextrose (Dextrose 50%) STAT PRN IV Hypoglycemia 06/02/17 17:00 07/02/17 16:59 Gabapentin (Neurontin) 300 mg BEDTIME ORAL 06/02/17 21:00 07/02/17 20:59 06/06/17 21:39 Insulin Aspart (NovoLOG) BEFORE MEALS AND HS SUBQ 06/02/17 17:30 06/30/17 17:29 06/07/17 12:36 Insulin Aspart (NovoLOG) 6 units NOVOTIAC SUBQ 06/03/17 11:50 07/03/17 11:49 06/07/17 12:37 Insulin Detemir (Levemir) 15 units BEDTIME SUBQ 06/03/17 21:00 07/03/17 20:59 06/06/17 21:50 Lansoprazole (Prevacid) 30 mg DAILY ORAL 06/03/17 09:00 06/30/17 09:44 06/07/17 08:48 Morphine Sulfate (Morphine Sulfate) 2 mg Q4H PRN IVP severe pain 7-10 06/02/17 17:00 06/09/17 16:59 06/07/17 14:18 Nifedipine (Procardia XL) 60 mg DAILY ORAL 06/03/17 09:00 06/30/17 09:44 06/07/17 08:47 Nitroglycerin (Ntg) 0.4 mg Q5M X 3 DOSES PRN SL Prn Chest Pain 06/02/17 17:00 06/29/17 16:59 Ondansetron HCl (Zofran) 4 mg Q6H PRN IVP Nausea & Vomiting 06/02/17 17:00 06/29/17 16:59 06/07/17 08:57 Polyethylene Glycol (Miralax) 17 gm HSPRN PRN ORAL Constipation 06/02/17 17:00 06/29/17 16:59 Sodium Chloride 1,000 ml @ 100 mls/hr Q10H IVLG 06/02/17 17:30 06/30/17 17:29 06/07/17 11:31 Tamsulosin HCl (Flomax) 0.4 mg Q12HR ORAL 06/02/17 21:00 06/30/17 20:59 06/07/17 08:47 BRIAN HERNANDEZ Jun 07, 2017 14:37
--- NOTE | 2017-06-07 15:53 | Cardiac Electrophysiology PN ---
Assessment/Plan Status Narrative Mild left ventricular enlargement by 2D. Normal left ventricular systolic function and wall motion. Left ventricular ejection fraction estimated to be 55 %. Mild left ventricular hypertrophy. No evidence of pericardial fat or effusion. All other cardiac chamber sizes are within normal limits. Moderate focal aortic valve sclerosis with adequate cusp excursion. Mildly thickened mitral valve leaflets with normal excursion. Mild mitral annulus and aortic root calcification. Normal pulmonic valve structure. Normal tricuspid valve structure. IVC dilated at 2.1 cm with physiologic collapse. Assessment/Plan 1. Paroxysmal atrial fibrillation, On Coreg 6.25 bid. Eliquis held for surgery. 2. Hypertension, Procardia XL 60 mg daily and Coreg 6.25 bid. 3. Hyperlipidemia, on Lipitor. 4. Status post right [id number] amputation and infection at the site, the patient on IV antibiotic per Infectious Diseases with vancomycin and Zosyn. OK to proceed with higher level amputation. Echo EF 55% DW RN Subjective Subjective Comfortable in NAD awaiting surgery Friday. No chest pain or SOB. On IV Abx Objective Last 24 Hour Vital Signs Date Time Temp Pulse Resp B/P (MAP) Pulse Ox O2 Delivery O2 Flow Rate FiO2 06/07/17 14:48 98.0 06/07/17 12:00 98.0 107 20 166/78 97 Room Air 06/07/17 08:47 78 159/78 06/07/17 08:47 78 159/78 06/07/17 08:30 78 20 Room Air 06/07/17 08:00 98.2 78 20 159/78 94 Room Air 06/07/17 04:00 98.5 79 20 153/76 96 Room Air 06/07/17 00:38 98.1 76 20 158/79 95 Room Air 06/06/17 21:51 80 165/90 06/06/17 20:00 97.6 80 19 165/90 93 Room Air 06/06/17 19:56 73 18 Room Air 06/06/17 16:35 176/76 06/06/17 16:00 98.3 74 18 176/76 98 Room Air Intake and Output 06/07/17 06/08/17 19:00 07:00 Intake Total 1100 ml Output Total 600 ml Balance 500 ml Intake Oral 350 ml IV Total 750 ml Output Urine Total 600 ml # Voids 1 Laboratory Tests Test 06/07/17 05:35 White Blood Count 12.4 K/UL (4.8-10.8) H Red Blood Count 2.89 M/UL (4.70-6.10) L Hemoglobin 8.5 G/DL (14.2-18.0) L Hematocrit 26.4 % (42.0-52.0) L Mean Corpuscular Volume 91 FL (80-99) Mean Corpuscular Hemoglobin 29.4 PG (27.0-31.0) Mean Corpuscular Hemoglobin Concent 32.1 G/DL (32.0-36.0) Red Cell Distribution Width 15.3 % (11.6-14.8) H Platelet Count 279 K/UL (150-450) Mean Platelet Volume 7.1 FL (6.5-10.1) Neutrophils (%) (Auto) 72.8 % (45.0-75.0) Lymphocytes (%) (Auto) 11.9 % (20.0-45.0) L Monocytes (%) (Auto) 12.3 % (1.0-10.0) H Eosinophils (%) (Auto) 2.0 % (0.0-3.0) Basophils (%) (Auto) 1.0 % (0.0-2.0) Sodium Level 139 mEQ/L (135-145) Potassium Level 4.9 mEQ/L (3.4-4.9) Chloride Level 106 mEQ/L (98-107) Carbon Dioxide Level 19 mEQ/L (20-30) L Anion Gap 14 (5-15) Blood Urea Nitrogen 29 mg/dL (7-23) H Creatinine 2.0 mg/dL (0.7-1.2) H Estimat Glomerular Filtration Rate 40.7 mL/min (>60) Glucose Level 207 mg/dL (74-106) H Calcium Level 8.2 mg/dL (8.6-10.2) L Objective HEAD AND NECK: Showed no JVD or carotid bruits. LUNGS: Clear. CARDIOVASCULAR: Shows regular S1 and S2 with no gallop. ABDOMEN: Soft. Extremities: Status post right [id number] amputation MADI MAYBERRY Jun 07, 2017 15:53
[2017-06-07 16:00] VITALS: BP 155/78
--- NOTE | 2017-06-07 17:10 | General Progress Note ---
Progress Note Progress Note Afebrile. Pt is awake, denies pain. We will proceed with a revision of his right BK amputation on 06-09-17. We will have one unit PRBCs available. Ben Burgess MD Jun 07, 2017 17:10
[2017-06-07 20:04] VITALS: BP 141/69
[2017-06-07] MEDS: Levemir Flexpen SUBQ SCH (21:00)
[2017-06-07] MEDS: cefTRIAXone 2 GM in D5W 110 ML IVPB SCH (21:19)
[2017-06-07] MEDS: Atorvastatin 80mg tab ORAL SCH (21:24)
--- NOTE | 2017-06-07 22:12 | General Progress Note ---
Assessment/Plan Assessment/Plan ASSESSMENT AND PLAN: # Leukocytosis 2/2 OM 1. Anemia secondary to chronic disease. Anemia workup has been reviewed, consistent with anemia of chronic disease. --> pt has received blood transfusion, keep hgb above 8 2. Decreased hemoglobin and hematocrit. Rule out gastrointestinal bleed. Occult blood is negative. 3. Acute kidney injury, mild hydronephrosis with history of bladder outlet obstruction. 4. Diabetes mellitus. Continue to better control diabetes mellitus. 6. Right below-knee amputation osteomyelitis. Surgery and ID following --> scheduled for surgery next Mon 06/09 Subjective Constitutional: Reports: no symptoms HEENT: Reports: no symptoms Cardiovascular: Reports: no symptoms Respiratory: Reports: no symptoms Gastrointestinal/Abdominal: Reports: no symptoms Genitourinary: Reports: no symptoms Neurologic/Psychiatric: Reports: no symptoms Endocrine: Reports: no symptoms Hematologic/Lymphatic: Reports: no symptoms Allergies: Coded Allergies: No Known Allergies (Unverified , 04/25/17) Subjective afebrile Objective Last 24 Hour Vital Signs Date Time Temp Pulse Resp B/P (MAP) Pulse Ox O2 Delivery O2 Flow Rate FiO2 06/07/17 21:23 71 134/72 06/07/17 20:04 98.3 75 19 141/69 93 Room Air 06/07/17 16:00 97.7 75 20 155/78 95 Room Air 06/07/17 14:48 98.0 06/07/17 12:00 98.0 107 20 166/78 97 Room Air 06/07/17 08:47 78 159/78 06/07/17 08:47 78 159/78 06/07/17 08:30 78 20 Room Air 06/07/17 08:00 98.2 78 20 159/78 94 Room Air 06/07/17 04:00 98.5 79 20 153/76 96 Room Air 06/07/17 00:38 98.1 76 20 158/79 95 Room Air Intake and Output 06/07/17 06/08/17 19:00 07:00 Intake Total 1850 ml Output Total 1000 ml Balance 850 ml Intake Oral 700 ml IV Total 1150 ml Output Urine Total 1000 ml # Voids 1 Laboratory Tests 06/07/17 05:35: White Blood Count 12.4H, Red Blood Count 2.89L, Hemoglobin 8.5L, Hematocrit 26.4L, Mean Corpuscular Volume 91, Mean Corpuscular Hemoglobin 29.4, Mean Corpuscular Hemoglobin Concent 32.1, Red Cell Distribution Width 15.3H, Platelet Count 279, Mean Platelet Volume 7.1, Neutrophils (%) (Auto) 72.8, Lymphocytes (%) (Auto) 11.9L, Monocytes (%) (Auto) 12.3H, Eosinophils (%) (Auto ) 2.0, Basophils (%) (Auto) 1.0, Sodium Level 139, Potassium Level 4.9, Chloride Level 106, Carbon Dioxide Level 19L, Anion Gap 14, Blood Urea Nitrogen 29H, Creatinine 2.0H, Estimat Glomerular Filtration Rate 40.7, Glucose Level 207H, Calcium Level 8.2L Height (Feet): 6 Height (Inches): 2.00 Weight (Pounds): 112 General Appearance: no apparent distress EENT: normal ENT inspection Neck: normal alignment 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
[2017-06-08] MEDS: Morphine Sulfate 2mg/ml Inj IVP PRN ×6 (00:02→20:53)
[2017-06-08 00:39] VITALS: BP 127/75
[2017-06-08 04:21] VITALS: BP 136/79
[2017-06-08] MEDS: NovoLOG Insulin Flexpen SUBQ SCH ×7 (07:06→21:00)
--- NOTE | 2017-06-08 07:17 | General Progress Note ---
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.43 - Infection of amputation stump, right lower extremity SNOMED: 366840870 (5) Renal failure ICD Codes: N19 - Unspecified kidney failure SNOMED: 20217202 Assessment/Plan reduce Levemir to 10 units qhs change Novolog to 4 units ac tid + SSI Subjective Allergies: Coded Allergies: No Known Allergies (Unverified , 04/25/17) All Systems: reviewed and negative except above Subjective events noted Objective Last 24 Hour Vital Signs Date Time Temp Pulse Resp B/P (MAP) Pulse Ox O2 Delivery O2 Flow Rate FiO2 06/08/17 04:21 97.8 89 20 136/79 95 Nasal Cannula 06/08/17 00:39 97.2 89 20 127/75 92 Room Air 06/07/17 22:05 72 20 Room Air 06/07/17 21:23 71 134/72 06/07/17 20:04 98.3 75 19 141/69 93 Room Air 06/07/17 16:00 97.7 75 20 155/78 95 Room Air 06/07/17 14:48 98.0 06/07/17 12:00 98.0 107 20 166/78 97 Room Air 06/07/17 08:47 78 159/78 06/07/17 08:47 78 159/78 06/07/17 08:30 78 20 Room Air 06/07/17 08:00 98.2 78 20 159/78 94 Room Air Height (Feet): 6 Height (Inches): 2.00 Weight (Pounds): 112 General Appearance: no apparent distress Neck: normal alignment Cardiovascular: normal rate Respiratory/Chest: lungs clear Abdomen: normal bowel sounds Objective Current Medications Medications (Trade) Dose Ordered Sig/Dragan Route PRN Reason Start Time Stop Time Status Last Admin Dose Admin Acetaminophen (Tylenol) 650 mg Q4H PRN ORAL fever 06/02/17 17:00 10/29/17 16:59 Atorvastatin Calcium (Lipitor) 80 mg BEDTIME ORAL 06/02/17 21:00 06/30/17 20:59 06/07/17 21:24 Carvedilol (Coreg) 6.25 mg EVERY 12 HOURS ORAL 06/02/17 21:00 07/02/17 20:59 06/07/17 21:23 Ceftriaxone Sodium 2 gm/ Dextrose 110 ml @ 220 mls/hr Q24H IVPB 06/03/17 21:00 06/10/17 20:59 06/07/17 21:19 Clonidine HCl (Catapres) 0.1 mg Q4H PRN ORAL sbp more than 160 06/02/17 17:00 07/02/17 16:59 06/06/17 16:35 Dextrose (Dextrose 50%) STAT PRN IV Hypoglycemia 06/02/17 17:00 07/02/17 16:59 Gabapentin (Neurontin) 300 mg BEDTIME ORAL 06/02/17 21:00 07/02/17 20:59 06/07/17 21:19 Insulin Aspart (NovoLOG) BEFORE MEALS AND HS SUBQ 06/02/17 17:30 06/30/17 17:29 06/08/17 07:06 Insulin Aspart (NovoLOG) 6 units NOVOTIAC SUBQ 06/03/17 11:50 07/03/17 11:49 06/08/17 07:06 Insulin Detemir (Levemir) 15 units BEDTIME SUBQ 06/03/17 21:00 07/03/17 20:59 06/06/17 21:50 Lansoprazole (Prevacid) 30 mg DAILY ORAL 06/03/17 09:00 06/30/17 09:44 06/07/17 08:48 Morphine Sulfate (Morphine Sulfate) 2 mg Q4H PRN IVP severe pain 7-10 06/02/17 17:00 06/09/17 16:59 06/08/17 03:57 Nifedipine (Procardia XL) 60 mg DAILY ORAL 06/03/17 09:00 06/30/17 09:44 06/07/17 08:47 Nitroglycerin (Ntg) 0.4 mg Q5M X 3 DOSES PRN SL Prn Chest Pain 06/02/17 17:00 10/29/17 16:59 Ondansetron HCl (Zofran) 4 mg Q6H PRN IVP Nausea & Vomiting 06/02/17 17:00 06/29/17 16:59 06/08/17 01:37 Polyethylene Glycol (Miralax) 17 gm HSPRN PRN ORAL Constipation 06/02/17 17:00 06/29/17 16:59 Sodium Chloride 1,000 ml @ 100 mls/hr Q10H IVLG 06/02/17 17:30 06/30/17 17:29 06/08/17 01:41 Tamsulosin HCl (Flomax) 0.4 mg Q12HR ORAL 06/02/17 21:00 06/30/17 20:59 06/07/17 21:19 Item Value Date Time Bedside Blood Glucose 185 mg/dl H 06/08/17 0706 Bedside Blood Glucose 185 mg/dl H 06/08/17 0630 Bedside Blood Glucose 55 mg/dl L 06/07/17 2100 Bedside Blood Glucose 132 mg/dl H 06/07/17 1742 Bedside Blood Glucose 278 mg/dl H 06/07/17 1237 CHRISTIAN MARIN Jun 08, 2017 07:17
[2017-06-08 08:00] VITALS: BP 121/85
[2017-06-08 08:04] LABS: BASOPHILS % (AUTO) 0.8 % (0.0-2.0); EOSINOPHILS % (AUTO) 1.5 % (0.0-3.0); LYMPHOCYTES % (AUTO) 12.9 % (20.0-45.0); MEAN CORPUSCULAR HEMOGLOBIN 30.4 PG (27.0-31.0); MEAN CORPUSCULAR VOLUME 92 FL (80-99); MEAN PLATELET VOLUME 6.8 FL (6.5-10.1); NEUTROPHILS % (AUTO) 73.8 % (45.0-75.0); PLATELET COUNT 280 K/UL (150-450); RED BLOOD COUNT 2.85 M/UL (4.70-6.10); WHITE BLOOD COUNT 13.6 K/UL (4.8-10.8)
[2017-06-08 08:08] LABS: CALCIUM 8.5 mg/dL (8.6-10.2); CREATININE 2.2 mg/dL (0.7-1.2); GLOMERULAR FILTRATION RATE 36.5 mL/min (>60); POTASSIUM 5.4 mEQ/L (3.4-4.9)
[2017-06-08] MEDS: Tamsulosin 0.4mg cap ORAL SCH ×2 (08:17→20:57)
[2017-06-08] MEDS: Carvedilol 6.25mg Tab ORAL SCH ×2 (08:17→20:57)
--- NOTE | 2017-06-08 09:57 | General Progress Note ---
Assessment/Plan Status: stable Assessment/Plan admitted for syncope Has DM OOC h/o A fib acute renal failure on CRI previous Cr 1.9 now 2.1 h/o bladder outlet obstruction) per AILYN in past Also due to DM and HTN, has 3+ Proteinuria anemia DM HTN R BKA stump wound BLE pain severe protein calorie malnutrition Urinary retention due to bladder out let Obstruction bladder outlet obstruction Plan: kayexelate for high K monitor renal parameters continue IV Surgical intervention for Osteo on 06/09 BS control Optimize BS and BP status Avoid nephrotoxics Flomax BID Anemia crawford Subjective ROS Limited/Unobtainable: No Allergies: Coded Allergies: No Known Allergies (Unverified , 04/25/17) Objective Last 24 Hour Vital Signs Date Time Temp Pulse Resp B/P (MAP) Pulse Ox O2 Delivery O2 Flow Rate FiO2 06/08/17 08:18 89 121/85 06/08/17 08:17 89 121/89 06/08/17 08:00 98.0 89 20 121/85 98 Room Air 06/08/17 07:15 84 20 Nasal Cannula 06/08/17 04:21 97.8 89 20 136/79 95 Nasal Cannula 06/08/17 00:39 97.2 89 20 127/75 92 Room Air 06/07/17 22:05 72 20 Room Air 06/07/17 21:23 71 134/72 06/07/17 20:04 98.3 75 19 141/69 93 Room Air 06/07/17 16:00 97.7 75 20 155/78 95 Room Air 06/07/17 14:48 98.0 06/07/17 12:00 98.0 107 20 166/78 97 Room Air Intake and Output 06/08/17 06/09/17 19:00 07:00 Intake Total 360 ml Output Total 200 ml Balance 160 ml Intake Oral 360 ml Output Urine Total 200 ml Laboratory Tests 06/08/17 05:30: White Blood Count 13.6H, Red Blood Count 2.85L, Hemoglobin 8.7L, Hematocrit 26.3L, Mean Corpuscular Volume 92, Mean Corpuscular Hemoglobin 30.4, Mean Corpuscular Hemoglobin Concent 33.0, Red Cell Distribution Width 16.0H, Platelet Count 280, Mean Platelet Volume 6.8, Neutrophils (%) (Auto) 73.8, Lymphocytes (%) (Auto) 12.9L, Monocytes (%) (Auto) 11.0H, Eosinophils (%) (Auto ) 1.5, Basophils (%) (Auto) 0.8, Sodium Level 139, Potassium Level 5.4H, Chloride Level 104, Carbon Dioxide Level 18L, Anion Gap 17H, Blood Urea Nitrogen 27H, Creatinine 2.2H, Estimat Glomerular Filtration Rate 36.5, Glucose Level 183H, Calcium Level 8.5L Height (Feet): 6 Height (Inches): 2.00 Weight (Pounds): 112 General Appearance: no apparent distress Objective no change in PE TYE TINAJERO Jun 08, 2017 09:57
[2017-06-08] MEDS ORDERED: Sodium Polystyrene Sulfonate 15gm Powder ORAL ONE (10:15)
--- NOTE | 2017-06-08 10:44 | Infectious Diseases Prog Note ---
Assessment/Plan Assessment/Plan A: Tibial osteomyelitis R BKA stump infection DM type 2 Acute renal failure/ CKD Anemia HPN P: continue Rocephin will have surgery tomorrow Subjective ROS Limited/Unobtainable: No Constitutional: Reports: no symptoms Respiratory: Reports: no symptoms Cardiovascular: Reports: no symptoms Genitourinary: Reports: no symptoms Allergies: Coded Allergies: No Known Allergies (Unverified , 04/25/17) Objective Vital Signs Last 24 Hour Vital Signs Date Time Temp Pulse Resp B/P (MAP) Pulse Ox O2 Delivery O2 Flow Rate FiO2 06/08/17 08:18 89 121/85 06/08/17 08:17 89 121/89 06/08/17 08:00 98.0 89 20 121/85 98 Room Air 06/08/17 07:15 84 20 Nasal Cannula 06/08/17 04:21 97.8 89 20 136/79 95 Nasal Cannula 06/08/17 00:39 97.2 89 20 127/75 92 Room Air 06/07/17 22:05 72 20 Room Air 06/07/17 21:23 71 134/72 06/07/17 20:04 98.3 75 19 141/69 93 Room Air 06/07/17 16:00 97.7 75 20 155/78 95 Room Air 06/07/17 14:48 98.0 06/07/17 12:00 98.0 107 20 166/78 97 Room Air Height (Feet): 6 Height (Inches): 2.00 Weight (Pounds): 112 General Appearance: no acute distress HEENT: mucous membranes moist Respiratory/Chest: lungs clear Cardiovascular: normal rate Abdomen: soft, non tender Extremities: other - right BKA Skin: ulcers, other - right stump Laboratory Tests Test 06/08/17 05:30 White Blood Count 13.6 K/UL (4.8-10.8) H Red Blood Count 2.85 M/UL (4.70-6.10) L Hemoglobin 8.7 G/DL (14.2-18.0) L Hematocrit 26.3 % (42.0-52.0) L Mean Corpuscular Volume 92 FL (80-99) Mean Corpuscular Hemoglobin 30.4 PG (27.0-31.0) Mean Corpuscular Hemoglobin Concent 33.0 G/DL (32.0-36.0) Red Cell Distribution Width 16.0 % (11.6-14.8) H Platelet Count 280 K/UL (150-450) Mean Platelet Volume 6.8 FL (6.5-10.1) Neutrophils (%) (Auto) 73.8 % (45.0-75.0) Lymphocytes (%) (Auto) 12.9 % (20.0-45.0) L Monocytes (%) (Auto) 11.0 % (1.0-10.0) H Eosinophils (%) (Auto) 1.5 % (0.0-3.0) Basophils (%) (Auto) 0.8 % (0.0-2.0) Sodium Level 139 mEQ/L (135-145) Potassium Level 5.4 mEQ/L (3.4-4.9) H Chloride Level 104 mEQ/L (98-107) Carbon Dioxide Level 18 mEQ/L (20-30) L Anion Gap 17 (5-15) H Blood Urea Nitrogen 27 mg/dL (7-23) H Creatinine 2.2 mg/dL (0.7-1.2) H Estimat Glomerular Filtration Rate 36.5 mL/min (>60) Glucose Level 183 mg/dL (74-106) H Calcium Level 8.5 mg/dL (8.6-10.2) L Current Medications Medications (Trade) Dose Ordered Sig/Dragan Route PRN Reason Start Time Stop Time Status Last Admin Dose Admin Acetaminophen (Tylenol) 650 mg Q4H PRN ORAL fever 06/02/17 17:00 06/29/17 16:59 Atorvastatin Calcium (Lipitor) 80 mg BEDTIME ORAL 06/02/17 21:00 06/30/17 20:59 06/07/17 21:24 Carvedilol (Coreg) 6.25 mg EVERY 12 HOURS ORAL 06/02/17 21:00 07/02/17 20:59 06/08/17 08:17 Ceftriaxone Sodium 2 gm/ Dextrose 110 ml @ 220 mls/hr Q24H IVPB 06/03/17 21:00 06/10/17 20:59 06/07/17 21:19 Clonidine HCl (Catapres) 0.1 mg Q4H PRN ORAL sbp more than 160 06/02/17 17:00 07/02/17 16:59 06/06/17 16:35 Dextrose (Dextrose 50%) STAT PRN IV Hypoglycemia 06/02/17 17:00 07/02/17 16:59 Gabapentin (Neurontin) 300 mg BEDTIME ORAL 06/02/17 21:00 07/02/17 20:59 06/07/17 21:19 Insulin Aspart (NovoLOG) BEFORE MEALS AND HS SUBQ 06/02/17 17:30 06/30/17 17:29 06/08/17 07:06 Insulin Aspart (NovoLOG) 4 units NOVOTIAC SUBQ 06/08/17 11:50 07/08/17 11:49 Insulin Detemir (Levemir) 10 units BEDTIME SUBQ 06/08/17 21:00 07/08/17 20:59 Lansoprazole (Prevacid) 30 mg DAILY ORAL 06/03/17 09:00 06/30/17 09:44 06/08/17 08:17 Morphine Sulfate (Morphine Sulfate) 2 mg Q4H PRN IVP severe pain 7-10 06/02/17 17:00 06/09/17 16:59 06/08/17 08:16 Nifedipine (Procardia XL) 60 mg DAILY ORAL 06/03/17 09:00 06/30/17 09:44 06/08/17 08:18 Nitroglycerin (Ntg) 0.4 mg Q5M X 3 DOSES PRN SL Prn Chest Pain 06/02/17 17:00 06/29/17 16:59 Ondansetron HCl (Zofran) 4 mg Q6H PRN IVP Nausea & Vomiting 06/02/17 17:00 06/29/17 16:59 06/08/17 01:37 Polyethylene Glycol (Miralax) 17 gm HSPRN PRN ORAL Constipation 06/02/17 17:00 06/29/17 16:59 Sodium Chloride 1,000 ml @ 100 mls/hr Q10H IVLG 06/02/17 17:30 06/30/17 17:29 06/08/17 01:41 Tamsulosin HCl (Flomax) 0.4 mg Q12HR ORAL 06/02/17 21:00 06/30/17 20:59 06/08/17 08:17 MAIA TEMPLE Jun 08, 2017 10:44
[2017-06-08 12:00] VITALS: BP 173/82
--- NOTE | 2017-06-08 12:14 | Pulmonology Progress Note ---
Assessment/Plan Problems: (1) Syncope (2) Sepsis (3) Right BKA infection (4) HTN (hypertension) (5) Diabetes mellitus (6) Renal failure (7) BPH (benign prostatic hyperplasia) Assessment/Plan no new complains renal function improving d/w surgeon for possible debridement or amputation Echo shoed previously 55% EF avoid nephrotoxic sliding scale check electrolytes scheduled for surgery for friday Subjective ROS Limited/Unobtainable: No Constitutional: Reports: no symptoms HEENT: Repors: no symptoms Respiratory: Reports: no symptoms Allergies: Coded Allergies: No Known Allergies (Unverified , 04/25/17) Objective Last 24 Hour Vital Signs Date Time Temp Pulse Resp B/P (MAP) Pulse Ox O2 Delivery O2 Flow Rate FiO2 06/08/17 08:18 89 121/85 06/08/17 08:17 89 121/89 06/08/17 08:00 98.0 89 20 121/85 98 Room Air 06/08/17 07:15 84 20 Nasal Cannula 06/08/17 04:21 97.8 89 20 136/79 95 Nasal Cannula 06/08/17 00:39 97.2 89 20 127/75 92 Room Air 06/07/17 22:05 72 20 Room Air 06/07/17 21:23 71 134/72 06/07/17 20:04 98.3 75 19 141/69 93 Room Air 06/07/17 16:00 97.7 75 20 155/78 95 Room Air 06/07/17 14:48 98.0 Intake and Output 06/08/17 06/09/17 19:00 07:00 Intake Total 360 ml Output Total 200 ml Balance 160 ml Intake Oral 360 ml Output Urine Total 200 ml Objective General Appearance: WD/WN HEENT: normocephalic, mucous membranes moist Respiratory/Chest: chest wall non-tender, normal breath sounds Cardiovascular: normal peripheral pulses, normal rate Abdomen: normal bowel sounds, no organomegaly Laboratory Tests 06/08/17 05:30: White Blood Count 13.6H, Red Blood Count 2.85L, Hemoglobin 8.7L, Hematocrit 26.3L, Mean Corpuscular Volume 92, Mean Corpuscular Hemoglobin 30.4, Mean Corpuscular Hemoglobin Concent 33.0, Red Cell Distribution Width 16.0H, Platelet Count 280, Mean Platelet Volume 6.8, Neutrophils (%) (Auto) 73.8, Lymphocytes (%) (Auto) 12.9L, Monocytes (%) (Auto) 11.0H, Eosinophils (%) (Auto ) 1.5, Basophils (%) (Auto) 0.8, Sodium Level 139, Potassium Level 5.4H, Chloride Level 104, Carbon Dioxide Level 18L, Anion Gap 17H, Blood Urea Nitrogen 27H, Creatinine 2.2H, Estimat Glomerular Filtration Rate 36.5, Glucose Level 183H, Calcium Level 8.5L Current Medications Medications (Trade) Dose Ordered Sig/Dragan Route PRN Reason Start Time Stop Time Status Last Admin Dose Admin Acetaminophen (Tylenol) 650 mg Q4H PRN ORAL fever 06/02/17 17:00 06/29/17 16:59 Atorvastatin Calcium (Lipitor) 80 mg BEDTIME ORAL 06/02/17 21:00 06/30/17 20:59 06/07/17 21:24 Carvedilol (Coreg) 6.25 mg EVERY 12 HOURS ORAL 06/02/17 21:00 07/02/17 20:59 06/08/17 08:17 Ceftriaxone Sodium 2 gm/ Dextrose 110 ml @ 220 mls/hr Q24H IVPB 06/03/17 21:00 06/10/17 20:59 06/07/17 21:19 Clonidine HCl (Catapres) 0.1 mg Q4H PRN ORAL sbp more than 160 06/02/17 17:00 07/02/17 16:59 06/06/17 16:35 Dextrose (Dextrose 50%) STAT PRN IV Hypoglycemia 06/02/17 17:00 07/02/17 16:59 Gabapentin (Neurontin) 300 mg BEDTIME ORAL 06/02/17 21:00 07/02/17 20:59 06/07/17 21:19 Insulin Aspart (NovoLOG) BEFORE MEALS AND HS SUBQ 06/02/17 17:30 06/30/17 17:29 06/08/17 12:06 Insulin Aspart (NovoLOG) 4 units NOVOTIAC SUBQ 06/08/17 11:50 07/08/17 11:49 06/08/17 12:07 Insulin Detemir (Levemir) 10 units BEDTIME SUBQ 06/08/17 21:00 07/08/17 20:59 Lansoprazole (Prevacid) 30 mg DAILY ORAL 06/03/17 09:00 06/30/17 09:44 06/08/17 08:17 Morphine Sulfate (Morphine Sulfate) 2 mg Q4H PRN IVP severe pain 7-10 06/02/17 17:00 06/09/17 16:59 06/08/17 08:16 Nifedipine (Procardia XL) 60 mg DAILY ORAL 06/03/17 09:00 06/30/17 09:44 06/08/17 08:18 Nitroglycerin (Ntg) 0.4 mg Q5M X 3 DOSES PRN SL Prn Chest Pain 06/02/17 17:00 06/29/17 16:59 Ondansetron HCl (Zofran) 4 mg Q6H PRN IVP Nausea & Vomiting 06/02/17 17:00 06/29/17 16:59 06/08/17 01:37 Polyethylene Glycol (Miralax) 17 gm HSPRN PRN ORAL Constipation 06/02/17 17:00 06/29/17 16:59 Sodium Chloride 1,000 ml @ 100 mls/hr Q10H IVLG 06/02/17 17:30 06/30/17 17:29 06/08/17 01:41 Tamsulosin HCl (Flomax) 0.4 mg Q12HR ORAL 06/02/17 21:00 06/30/17 20:59 06/08/17 08:17 BRIAN HERNANDEZ Jun 08, 2017 12:14
--- NOTE | 2017-06-08 13:32 | General Progress Note ---
Progress Note Progress Note Afebrile. Pt will undergo a revision of his right below knee amputation stump tomorrow to try to resolve his osteomyelitis of the rt tibia. We will have one unit of PRBCs available. Ben Burgess MD Jun 08, 2017 13:32
--- NOTE | 2017-06-08 14:38 | Internal Med Progress Note ---
Subjective Date of Service: Jun 08, 2017 Physician Name Maryanne Smalls Attending Physician Bruno Serrato MD Current Medications Medications (Trade) Dose Ordered Sig/Dragan Route PRN Reason Start Time Stop Time Status Last Admin Dose Admin Acetaminophen (Tylenol) 650 mg Q4H PRN ORAL fever 06/02/17 17:00 06/29/17 16:59 Atorvastatin Calcium (Lipitor) 80 mg BEDTIME ORAL 06/02/17 21:00 06/30/17 20:59 06/07/17 21:24 Carvedilol (Coreg) 6.25 mg EVERY 12 HOURS ORAL 06/02/17 21:00 07/02/17 20:59 06/08/17 08:17 Ceftriaxone Sodium 2 gm/ Dextrose 110 ml @ 220 mls/hr Q24H IVPB 06/03/17 21:00 06/10/17 20:59 06/07/17 21:19 Clonidine HCl (Catapres) 0.1 mg Q4H PRN ORAL sbp more than 160 06/02/17 17:00 07/02/17 16:59 06/06/17 16:35 Dextrose (Dextrose 50%) STAT PRN IV Hypoglycemia 06/02/17 17:00 07/02/17 16:59 Gabapentin (Neurontin) 300 mg BEDTIME ORAL 06/02/17 21:00 07/02/17 20:59 06/07/17 21:19 Insulin Aspart (NovoLOG) BEFORE MEALS AND HS SUBQ 06/02/17 17:30 06/30/17 17:29 06/08/17 12:06 Insulin Aspart (NovoLOG) 4 units NOVOTIAC SUBQ 06/08/17 11:50 07/08/17 11:49 06/08/17 12:07 Insulin Detemir (Levemir) 10 units BEDTIME SUBQ 06/08/17 21:00 07/08/17 20:59 Lansoprazole (Prevacid) 30 mg DAILY ORAL 06/03/17 09:00 06/30/17 09:44 06/08/17 08:17 Morphine Sulfate (Morphine Sulfate) 2 mg Q4H PRN IVP severe pain 7-10 06/02/17 17:00 06/09/17 16:59 06/08/17 12:28 Nifedipine (Procardia XL) 60 mg DAILY ORAL 06/03/17 09:00 06/30/17 09:44 10/8/17 08:18 Nitroglycerin (Ntg) 0.4 mg Q5M X 3 DOSES PRN SL Prn Chest Pain 06/02/17 17:00 06/29/17 16:59 Ondansetron HCl (Zofran) 4 mg Q6H PRN IVP Nausea & Vomiting 06/02/17 17:00 06/29/17 16:59 06/08/17 01:37 Polyethylene Glycol (Miralax) 17 gm HSPRN PRN ORAL Constipation 06/02/17 17:00 06/29/17 16:59 Sodium Chloride 1,000 ml @ 100 mls/hr Q10H IVLG 06/02/17 17:30 06/30/17 17:29 06/08/17 01:41 Tamsulosin HCl (Flomax) 0.4 mg Q12HR ORAL 06/02/17 21:00 06/30/17 20:59 06/08/17 08:17 Allergies: Coded Allergies: No Known Allergies (Unverified , 04/25/17) ROS Limited/Unobtainable: No Constitutional: Reports: no symptoms HEENT: Reports: no symptoms Cardiovascular: Reports: no symptoms Respiratory: Reports: no symptoms Gastrointestinal/Abdominal: Reports: no symptoms Genitourinary: Reports: no symptoms Neurologic/Psychiatric: Reports: no symptoms Subjective 66 YO M admitted with uncontroled diabetes and BKA pain. Now osteomyelitis right BKA stump-surgery scheduled 06/09/17.. Cover for Int Jonathan-Dr Serrato. Objective Last Vital Signs Date Time Temp Pulse Resp B/P (MAP) Pulse Ox O2 Delivery O2 Flow Rate FiO2 06/08/17 12:00 97.0 85 20 173/82 94 Room Air 06/04/17 19:55 21 Laboratory Tests Test 06/08/17 05:30 White Blood Count 13.6 K/UL (4.8-10.8) H Red Blood Count 2.85 M/UL (4.70-6.10) L Hemoglobin 8.7 G/DL (14.2-18.0) L Hematocrit 26.3 % (42.0-52.0) L Mean Corpuscular Volume 92 FL (80-99) Mean Corpuscular Hemoglobin 30.4 PG (27.0-31.0) Mean Corpuscular Hemoglobin Concent 33.0 G/DL (32.0-36.0) Red Cell Distribution Width 16.0 % (11.6-14.8) H Platelet Count 280 K/UL (150-450) Mean Platelet Volume 6.8 FL (6.5-10.1) Neutrophils (%) (Auto) 73.8 % (45.0-75.0) Lymphocytes (%) (Auto) 12.9 % (20.0-45.0) L Monocytes (%) (Auto) 11.0 % (1.0-10.0) H Eosinophils (%) (Auto) 1.5 % (0.0-3.0) Basophils (%) (Auto) 0.8 % (0.0-2.0) Sodium Level 139 mEQ/L (135-145) Potassium Level 5.4 mEQ/L (3.4-4.9) H Chloride Level 104 mEQ/L (98-107) Carbon Dioxide Level 18 mEQ/L (20-30) L Anion Gap 17 (5-15) H Blood Urea Nitrogen 27 mg/dL (7-23) H Creatinine 2.2 mg/dL (0.7-1.2) H Estimat Glomerular Filtration Rate 36.5 mL/min (>60) Glucose Level 183 mg/dL (74-106) H Calcium Level 8.5 mg/dL (8.6-10.2) L Intake and Output 06/08/17 06/09/17 19:00 07:00 Intake Total 600 ml Output Total 700 ml Balance -100 ml Intake Oral 600 ml Output Urine Total 700 ml # Bowel Movements 2 Objective General Appearance: alert, mild distress, thin EENT: PERRL/EOMI, normal ENT inspection Neck: non-tender, normal alignment, supple Cardiovascular: normal peripheral pulses, normal rate, regular rhythm, no gallop/murmur, no JVD Respiratory/Chest: chest wall non-tender, lungs clear, normal breath sounds, no respiratory distress, no accessory muscle use Abdomen: normal bowel sounds, non tender, soft, no organomegaly, no mass Extremities: other - right BKA 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 (3) Diabetes mellitus type II, uncontrolled Assessment & Plan: Continue novolog and levemir per endocrinology. See Endocrinology consult. (4) Right BKA infection Assessment & Plan: See ID note. Continue Zosyn. Wound care. Scheduled for BKA revision vs AKA on Fri06/09/17-see surgery note.. (5) Syncope (6) HTN (hypertension) Assessment & Plan: Continue Procardia (7) Osteomyelitis of right tibia Assessment & Plan: Continue antibiotic per ID. May require right Above the knee amputation per surgery-see note. MARYANNE SMALLS Jun 08, 2017 14:38
[2017-06-08 16:00] VITALS: BP 149/63
--- NOTE | 2017-06-08 16:51 | General Progress Note ---
Assessment/Plan Assessment/Plan ASSESSMENT AND PLAN: # Leukocytosis 2/2 OM, is to receive surgery tomorrow. 1. Anemia secondary to chronic disease. Anemia workup has been reviewed, consistent with anemia of chronic disease. --> pt has received blood transfusion, keep hgb above 8 2. Decreased hemoglobin and hematocrit. Rule out gastrointestinal bleed. Occult blood is negative. 3. Acute kidney injury, mild hydronephrosis with history of bladder outlet obstruction. 4. Diabetes mellitus. Continue to better control diabetes mellitus. 6. Right below-knee amputation osteomyelitis. Surgery and ID following --> scheduled for surgery next 06/09 Subjective Constitutional: Reports: no symptoms HEENT: Reports: no symptoms Cardiovascular: Reports: no symptoms Respiratory: Reports: no symptoms Gastrointestinal/Abdominal: Reports: no symptoms Genitourinary: Reports: no symptoms Neurologic/Psychiatric: Reports: no symptoms Endocrine: Reports: no symptoms Hematologic/Lymphatic: Reports: no symptoms Allergies: Coded Allergies: No Known Allergies (Unverified , 04/25/17) Subjective afebrile, no major changes Objective Last 24 Hour Vital Signs Date Time Temp Pulse Resp B/P (MAP) Pulse Ox O2 Delivery O2 Flow Rate FiO2 06/08/17 12:00 97.0 85 20 173/82 94 Room Air 06/08/17 08:18 89 121/85 06/08/17 08:17 89 121/89 06/08/17 08:00 98.0 89 20 121/85 98 Room Air 06/08/17 07:15 84 20 Nasal Cannula 06/08/17 04:21 97.8 89 20 136/79 95 Nasal Cannula 06/08/17 00:39 97.2 89 20 127/75 92 Room Air 06/07/17 22:05 72 20 Room Air 06/07/17 21:23 71 134/72 06/07/17 20:04 98.3 75 19 141/69 93 Room Air Intake and Output 06/08/17 06/09/17 19:00 07:00 Intake Total 600 ml Output Total 700 ml Balance -100 ml Intake Oral 600 ml Output Urine Total 700 ml # Bowel Movements 2 Laboratory Tests 06/08/17 05:30: White Blood Count 13.6H, Red Blood Count 2.85L, Hemoglobin 8.7L, Hematocrit 26.3L, Mean Corpuscular Volume 92, Mean Corpuscular Hemoglobin 30.4, Mean Corpuscular Hemoglobin Concent 33.0, Red Cell Distribution Width 16.0H, Platelet Count 280, Mean Platelet Volume 6.8, Neutrophils (%) (Auto) 73.8, Lymphocytes (%) (Auto) 12.9L, Monocytes (%) (Auto) 11.0H, Eosinophils (%) (Auto ) 1.5, Basophils (%) (Auto) 0.8, Sodium Level 139, Potassium Level 5.4H, Chloride Level 104, Carbon Dioxide Level 18L, Anion Gap 17H, Blood Urea Nitrogen 27H, Creatinine 2.2H, Estimat Glomerular Filtration Rate 36.5, Glucose Level 183H, Calcium Level 8.5L Height (Feet): 6 Height (Inches): 2.00 Weight (Pounds): 112 General Appearance: no apparent distress EENT: normal ENT inspection Neck: normal alignment Cardiovascular: normal peripheral pulses Respiratory/Chest: normal breath sounds Neurologic: 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
[2017-06-08 20:00] VITALS: BP 168/87
[2017-06-08] MEDS: cefTRIAXone 2 GM in D5W 110 ML IVPB SCH (20:52)
[2017-06-08] MEDS: Atorvastatin 80mg tab ORAL SCH (20:58)
[2017-06-08] MEDS: Levemir Flexpen SUBQ SCH (21:00)
[2017-06-09] VITALS (14 sets, daily range): BP systolic 102–176; BP diastolic 61–95
[2017-06-09] MEDS: Morphine Sulfate 2mg/ml Inj IVP PRN ×3 (01:04→09:14)
[2017-06-09] MEDS: NovoLOG Insulin Flexpen SUBQ SCH ×7 (06:26→21:00)
[2017-06-09 07:49] LABS: BASOPHILS % (AUTO) 1.1 % (0.0-2.0); EOSINOPHILS % (AUTO) 2.2 % (0.0-3.0); LYMPHOCYTES % (AUTO) 16.1 % (20.0-45.0); MEAN CORPUSCULAR HEMOGLOBIN 30.1 PG (27.0-31.0); MEAN CORPUSCULAR HGB CONC 32.6 G/DL (32.0-36.0); MEAN CORPUSCULAR VOLUME 92 FL (80-99); MEAN PLATELET VOLUME 6.7 FL (6.5-10.1); MONOCYTES % (AUTO) 13.1 % (1.0-10.0); NEUTROPHILS % (AUTO) 67.5 % (45.0-75.0); PLATELET COUNT 284 K/UL (150-450); RED BLOOD COUNT 2.79 M/UL (4.70-6.10); RED CELL DISTRIBUTION WIDTH 16.6 % (11.6-14.8); WHITE BLOOD COUNT 12.3 K/UL (4.8-10.8)
[2017-06-09 08:20] LABS: PROTHROMBIN TIME 10.1 SEC (9.30-11.50)
[2017-06-09 08:30] LABS: ALANINE AMINOTRANSFERASE 17 U/L (12-78); ASPARTATE AMINO TRANSFERASE 17 U/L (15-37); CARBON DIOXIDE 21 MMOL/L (21-32); CHLORIDE 110 MMOL/L (98-107); CREATININE 2.1 MG/DL (0.55-1.30); GLOMERULAR FILTRATION RATE 38.5 mL/min (>60); PHOSPHORUS 3.7 MG/DL (2.5-4.9); POTASSIUM 4.7 MMOL/L (3.5-5.1); SODIUM 140 MMOL/L (136-145); TOTAL PROTEIN 6.4 G/DL (6.4-8.2)
[2017-06-09 08:32] LABS: ALBUMIN/GLOBULIN RATIO 0.4 (1.0-2.7); ANION GAP 9 (5-15)
[2017-06-09 08:44] LABS: CALCIUM 8.2 MG/DL (8.5-10.1)
[2017-06-09] MEDS: Tamsulosin 0.4mg cap ORAL SCH ×2 (09:02→21:22)
[2017-06-09] MEDS: Carvedilol 6.25mg Tab ORAL SCH ×2 (09:03→21:22)
--- NOTE | 2017-06-09 11:25 | Pre-Procedure Note/Attestation ---
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 I attest that, if there was a reasonable possibility of needing a blood transfusion, the patient (or the patient's legal agency service representative) was given the [facility] standardized written summary, pursuant to the Ralph Nini Blood Safety Act ([place] Health and Safety Code # 1645, as amended). I attest that I re-evaluated the patient just prior to the surgery and that there has been no change in the patient's H&P, except as documented below:none Ben Burgess MD Jun 09, 2017 11:25
--- NOTE | 2017-06-09 11:39 | Internal Med Progress Note ---
Subjective Date of Service: Jun 09, 2017 Physician Name Felton Smalls Attending Physician Bruno Serrato MD Current Medications Medications (Trade) Dose Ordered Sig/Dragan Route PRN Reason Start Time Stop Time Status Last Admin Dose Admin Acetaminophen (Tylenol) 650 mg Q4H PRN ORAL fever 06/02/17 17:00 06/29/17 16:59 Atorvastatin Calcium (Lipitor) 80 mg BEDTIME ORAL 06/02/17 21:00 06/30/17 20:59 06/08/17 20:58 Carvedilol (Coreg) 6.25 mg EVERY 12 HOURS ORAL 06/02/17 21:00 07/02/17 20:59 06/09/17 09:03 Ceftriaxone Sodium 2 gm/ Dextrose 110 ml @ 220 mls/hr Q24H IVPB 06/03/17 21:00 06/16/17 20:59 06/08/17 20:52 Clonidine HCl (Catapres) 0.1 mg Q4H PRN ORAL sbp more than 160 06/02/17 17:00 07/02/17 16:59 06/06/17 16:35 Dextrose (Dextrose 50%) STAT PRN IV Hypoglycemia 06/02/17 17:00 07/02/17 16:59 Gabapentin (Neurontin) 300 mg BEDTIME ORAL 06/02/17 21:00 07/02/17 20:59 06/08/17 20:53 Insulin Aspart (NovoLOG) BEFORE MEALS AND HS SUBQ 06/02/17 17:30 06/30/17 17:29 06/08/17 16:52 Insulin Aspart (NovoLOG) 4 units NOVOTIAC SUBQ 06/08/17 11:50 07/08/17 11:49 06/08/17 16:53 Insulin Detemir (Levemir) 10 units BEDTIME SUBQ 06/08/17 21:00 07/08/17 20:59 Lansoprazole (Prevacid) 30 mg DAILY ORAL 06/03/17 09:00 06/30/17 09:44 06/09/17 09:02 Morphine Sulfate (Morphine Sulfate) 2 mg Q4H PRN IVP severe pain 7-10 06/02/17 17:00 06/09/17 16:59 06/09/17 09:14 Nifedipine (Procardia XL) 60 mg DAILY ORAL 06/03/17 09:00 06/30/17 09:44 10/9/17 09:05 Nitroglycerin (Ntg) 0.4 mg Q5M X 3 DOSES PRN SL Prn Chest Pain 06/02/17 17:00 06/29/17 16:59 Ondansetron HCl (Zofran) 4 mg Q6H PRN IVP Nausea & Vomiting 06/02/17 17:00 06/29/17 16:59 06/08/17 01:37 Polyethylene Glycol (Miralax) 17 gm HSPRN PRN ORAL Constipation 06/02/17 17:00 06/29/17 16:59 Sodium Chloride 1,000 ml @ 100 mls/hr Q10H IVLG 06/02/17 17:30 06/30/17 17:29 06/08/17 23:35 Tamsulosin HCl (Flomax) 0.4 mg Q12HR ORAL 06/02/17 21:00 06/30/17 20:59 06/09/17 09:02 Allergies: Coded Allergies: No Known Allergies (Unverified , 04/25/17) ROS Limited/Unobtainable: No Subjective 66 YO M admitted with uncontroled diabetes and BKA pain. Now osteomyelitis right BKA stump. Await surgery scheduled today 06/09/17.. Cover for Int Med -Dr Serrato. Objective Last Vital Signs Date Time Temp Pulse Resp B/P (MAP) Pulse Ox O2 Delivery O2 Flow Rate FiO2 06/09/17 09:46 82 16 Nasal Cannula 2.0 28 06/09/17 09:05 176/86 06/09/17 08:00 97.8 96 Laboratory Tests Test 06/09/17 07:30 White Blood Count 12.3 K/UL (4.8-10.8) H Red Blood Count 2.79 M/UL (4.70-6.10) L Hemoglobin 8.4 G/DL (14.2-18.0) L Hematocrit 25.8 % (42.0-52.0) L Mean Corpuscular Volume 92 FL (80-99) Mean Corpuscular Hemoglobin 30.1 PG (27.0-31.0) Mean Corpuscular Hemoglobin Concent 32.6 G/DL (32.0-36.0) Red Cell Distribution Width 16.6 % (11.6-14.8) H Platelet Count 284 K/UL (150-450) Mean Platelet Volume 6.7 FL (6.5-10.1) Neutrophils (%) (Auto) 67.5 % (45.0-75.0) Lymphocytes (%) (Auto) 16.1 % (20.0-45.0) L Monocytes (%) (Auto) 13.1 % (1.0-10.0) H Eosinophils (%) (Auto) 2.2 % (0.0-3.0) Basophils (%) (Auto) 1.1 % (0.0-2.0) Prothrombin Time 10.1 SEC (9.30-11.50) Prothromb Time International Ratio 1.0 (0.9-1.1) Activated Partial Thromboplast Time 32 SEC (23-33) Sodium Level 140 MMOL/L (136-145) Potassium Level 4.7 MMOL/L (3.5-5.1) Chloride Level 110 MMOL/L (98-107) H Carbon Dioxide Level 21 MMOL/L (21-32) Anion Gap 9 (5-15) Blood Urea Nitrogen 27 mg/dL (7-18) H Creatinine 2.1 MG/DL (0.55-1.30) H Estimat Glomerular Filtration Rate 38.5 mL/min (>60) Glucose Level 114 MG/DL (74-106) H Calcium Level 8.2 MG/DL (8.5-10.1) L Phosphorus Level 3.7 MG/DL (2.5-4.9) Magnesium Level 2.0 MG/DL (1.8-2.4) Total Bilirubin 0.2 MG/DL (0.2-1.0) Aspartate Amino Transf (AST/SGOT) 17 U/L (15-37) Alanine Aminotransferase (ALT/SGPT) 17 U/L (12-78) Alkaline Phosphatase 112 U/L (46-116) Total Protein 6.4 G/DL (6.4-8.2) Albumin 2.1 G/DL (3.4-5.0) L Globulin 4.3 g/dL Albumin/Globulin Ratio 0.4 (1.0-2.7) L Objective General Appearance: alert, mild distress, thin EENT: PERRL/EOMI, normal ENT inspection Neck: non-tender, normal alignment, supple Cardiovascular: normal peripheral pulses, normal rate, regular rhythm, no gallop/murmur, no JVD Respiratory/Chest: chest wall non-tender, lungs clear, normal breath sounds, no respiratory distress, no accessory muscle use Abdomen: normal bowel sounds, non tender, soft, no organomegaly, no mass Extremities: other - right BKA Neurologic: manufacturing helper II-XII grossly normal, no motor/sensory deficits Skin: normal pigmentation, warm/dry Assessment/Plan Problem List: (1) Hypercholesteremia Assessment & Plan: continue lipitor (2) Atrial fibrillation Assessment & Plan: see cardiology note. (3) Diabetes mellitus type II, uncontrolled Assessment & Plan: Continue novolog and levemir per endocrinology. See Endocrinology consult. (4) Right BKA infection Assessment & Plan: See ID note. Continue Zosyn. Wound care. Scheduled for BKA revision vs AKA on Fri06/09/17-see surgery note.. (5) Syncope (6) HTN (hypertension) Assessment & Plan: Continue Procardia (7) Osteomyelitis of right tibia Assessment & Plan: Continue antibiotic per ID. May require right Above the knee amputation per surgery-see note. Status: not improved FELTON SMALLS Jun 09, 2017 11:39
[2017-06-09] MEDS ORDERED: ePHEDrine 50mg/ml Inj ONE (12:00)
[2017-06-09] MEDS ORDERED: fentaNYL 100 mcg/2 mL IV ONE (12:00)
[2017-06-09] MEDS ORDERED: Sterile Water Irrig 1000ml IRRIG ONE (12:00)
[2017-06-09] MEDS ORDERED: Midazolam 2mg/2ml Inj ONE (12:00)
[2017-06-09] MEDS ORDERED: NS Irrig 1000ml ONE (12:00)
--- NOTE | 2017-06-09 12:00 | Infectious Diseases Prog Note ---
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 Ceftriaxone, levo/cipro, Bactrim, Zosyn), +4 E. cloace (S. Ceftriaxone, levo/Cipro, Zosyn; R bactrim); possible that these represents colonizer as wound cx was superficial and likely pathogens could still be Strep sp and MSSA. -s/p admission in [facility] in March for stump infection s/p 4 weeks of PO abx (pt unsure of abx) -06/03 ESR 116, CRP 6.1 Leukocytosis, mild- persistent -Bcx NTD Pyuria/Bacteriuria (assymptomatic) -u/a WBC 5-10, nit +, leuk +3; ucx >100K Serratia marcenses (S. CTX, zosy, Cipro, bactrim) NOHELIA on CKD, improving -renal U/s: Mild right hydronephrosis.Left kidney is normal. No left hydronephrosis. Left renal cyst is noted. Distended urinary bladder with wall thickening. There is layering debris within the urinary bladder. Cystitis cannot be excluded Hyperlipidemia. History of hypoglycemia. Hypertension. Diabetes. Atrial fibrillation. PLAN: -Continue IV Ceftriaxone #7 (abx d#10) -s/p 5d IV Vanco, 4d Zosyn 06/03 -will monitor closely for worsening of symptoms,fever, leukocytosis as organisms isolated has potential of ESBL inducibility -For revision of stump on today -if amputation is done and removal of all infected bone, then will require short abx course of 5-7 days after surgery -if residual OM, then prolonged abx for 6 weeks -awaiting records from [facility] (RN to follow up); pending -Trend WBC -Monitor CBC/ BMP, temperatures -Monitor cultures -obtain records at [facility] for recent admission (cx obtained,a bx given, etc) -wound care Discussed with RN Subjective Allergies: Coded Allergies: No Known Allergies (Unverified , 04/25/17) Subjective afebrile VSS at RA leukocytosis persistent at 11-12 Bcx Neg awaiting records from [facility] Objective Vital Signs Last 24 Hour Vital Signs Date Time Temp Pulse Resp B/P (MAP) Pulse Ox O2 Delivery O2 Flow Rate FiO2 10/9/17 09:46 82 16 Nasal Cannula 2.0 28 06/09/17 09:05 78 176/86 06/09/17 09:03 78 176/86 06/09/17 08:00 97.8 78 20 176/87 96 Nasal Cannula 2.0 06/09/17 04:00 98.9 82 18 155/80 98 Nasal Cannula 2.0 06/08/17 20:57 84 168/87 06/08/17 20:00 98.3 84 18 168/87 94 Room Air 06/08/17 19:58 80 18 Room Air 06/08/17 16:00 98.2 81 20 149/63 92 Room Air 06/08/17 12:00 97.0 85 20 173/82 94 Room Air Height (Feet): 6 Height (Inches): 2.00 Weight (Pounds): 112 Objective not seen as patient in OR Laboratory Tests Test 06/09/17 07:30 White Blood Count 12.3 K/UL (4.8-10.8) H Red Blood Count 2.79 M/UL (4.70-6.10) L Hemoglobin 8.4 G/DL (14.2-18.0) L Hematocrit 25.8 % (42.0-52.0) L Mean Corpuscular Volume 92 FL (80-99) Mean Corpuscular Hemoglobin 30.1 PG (27.0-31.0) Mean Corpuscular Hemoglobin Concent 32.6 G/DL (32.0-36.0) Red Cell Distribution Width 16.6 % (11.6-14.8) H Platelet Count 284 K/UL (150-450) Mean Platelet Volume 6.7 FL (6.5-10.1) Neutrophils (%) (Auto) 67.5 % (45.0-75.0) Lymphocytes (%) (Auto) 16.1 % (20.0-45.0) L Monocytes (%) (Auto) 13.1 % (1.0-10.0) H Eosinophils (%) (Auto) 2.2 % (0.0-3.0) Basophils (%) (Auto) 1.1 % (0.0-2.0) Prothrombin Time 10.1 SEC (9.30-11.50) Prothromb Time International Ratio 1.0 (0.9-1.1) Activated Partial Thromboplast Time 32 SEC (23-33) Sodium Level 140 MMOL/L (136-145) Potassium Level 4.7 MMOL/L (3.5-5.1) Chloride Level 110 MMOL/L (98-107) H Carbon Dioxide Level 21 MMOL/L (21-32) Anion Gap 9 (5-15) Blood Urea Nitrogen 27 mg/dL (7-18) H Creatinine 2.1 MG/DL (0.55-1.30) H Estimat Glomerular Filtration Rate 38.5 mL/min (>60) Glucose Level 114 MG/DL (74-106) H Calcium Level 8.2 MG/DL (8.5-10.1) L Phosphorus Level 3.7 MG/DL (2.5-4.9) Magnesium Level 2.0 MG/DL (1.8-2.4) Total Bilirubin 0.2 MG/DL (0.2-1.0) Aspartate Amino Transf (AST/SGOT) 17 U/L (15-37) Alanine Aminotransferase (ALT/SGPT) 17 U/L (12-78) Alkaline Phosphatase 112 U/L (46-116) Total Protein 6.4 G/DL (6.4-8.2) Albumin 2.1 G/DL (3.4-5.0) L Globulin 4.3 g/dL Albumin/Globulin Ratio 0.4 (1.0-2.7) L Current Medications Medications (Trade) Dose Ordered Sig/Dragan Route PRN Reason Start Time Stop Time Status Last Admin Dose Admin Acetaminophen (Tylenol) 650 mg Q4H PRN ORAL fever 06/02/17 17:00 06/29/17 16:59 Atorvastatin Calcium (Lipitor) 80 mg BEDTIME ORAL 06/02/17 21:00 06/30/17 20:59 06/08/17 20:58 Carvedilol (Coreg) 6.25 mg EVERY 12 HOURS ORAL 06/02/17 21:00 07/02/17 20:59 06/09/17 09:03 Ceftriaxone Sodium 2 gm/ Dextrose 110 ml @ 220 mls/hr Q24H IVPB 06/03/17 21:00 06/16/17 20:59 06/08/17 20:52 Clonidine HCl (Catapres) 0.1 mg Q4H PRN ORAL sbp more than 160 06/02/17 17:00 07/02/17 16:59 06/06/17 16:35 Dextrose (Dextrose 50%) STAT PRN IV Hypoglycemia 06/02/17 17:00 07/02/17 16:59 Gabapentin (Neurontin) 300 mg BEDTIME ORAL 06/02/17 21:00 07/02/17 20:59 06/08/17 20:53 Insulin Aspart (NovoLOG) BEFORE MEALS AND HS SUBQ 06/02/17 17:30 06/30/17 17:29 06/08/17 16:52 Insulin Aspart (NovoLOG) 4 units NOVOTIAC SUBQ 06/08/17 11:50 07/08/17 11:49 06/08/17 16:53 Insulin Detemir (Levemir) 10 units BEDTIME SUBQ 06/08/17 21:00 07/08/17 20:59 Lansoprazole (Prevacid) 30 mg DAILY ORAL 06/03/17 09:00 06/30/17 09:44 06/09/17 09:02 Morphine Sulfate (Morphine Sulfate) 2 mg Q4H PRN IVP severe pain 7-10 06/02/17 17:00 06/09/17 16:59 06/09/17 09:14 Nifedipine (Procardia XL) 60 mg DAILY ORAL 06/03/17 09:00 06/30/17 09:44 06/09/17 09:05 Nitroglycerin (Ntg) 0.4 mg Q5M X 3 DOSES PRN SL Prn Chest Pain 06/02/17 17:00 06/29/17 16:59 Ondansetron HCl (Zofran) 4 mg Q6H PRN IVP Nausea & Vomiting 06/02/17 17:00 06/29/17 16:59 06/08/17 01:37 Polyethylene Glycol (Miralax) 17 gm HSPRN PRN ORAL Constipation 06/02/17 17:00 06/29/17 16:59 Sodium Chloride 1,000 ml @ 100 mls/hr Q10H IVLG 06/02/17 17:30 06/30/17 17:29 06/08/17 23:35 Tamsulosin HCl (Flomax) 0.4 mg Q12HR ORAL 06/02/17 21:00 06/30/17 20:59 06/09/17 09:02 Liz Guevara M.D. Jun 09, 2017 12:00
[2017-06-09] MEDS ORDERED: Propofol 200mg/20ml IV ONE (12:14)
[2017-06-09] MEDS ORDERED: Bacitracin 50000 Units Vial ONE (12:14)
[2017-06-09] MEDS ORDERED: NeoSporin Gu Irrig 1ml Amp IRRIG ONE (12:14)
--- NOTE | 2017-06-09 12:46 | General Progress Note ---
Assessment/Plan Status: unchanged Assessment/Plan admitted for syncope Has DM OOC h/o A fib acute renal failure on CRI previous Cr 1.9 now 2.1 h/o bladder outlet obstruction) per AILYN in past Also due to DM and HTN, has 3+ Proteinuria anemia DM HTN R BKA stump wound BLE pain severe protein calorie malnutrition Urinary retention due to bladder out let Obstruction bladder outlet obstruction Plan: monitor renal parameters continue IV Surgical intervention for Osteo on 06/09 BS control Optimize BS and BP status Avoid nephrotoxics Flomax BID Anemia crawford Subjective ROS Limited/Unobtainable: No Allergies: Coded Allergies: No Known Allergies (Unverified , 04/25/17) Objective Last 24 Hour Vital Signs Date Time Temp Pulse Resp B/P (MAP) Pulse Ox O2 Delivery O2 Flow Rate FiO2 06/09/17 09:46 82 16 Nasal Cannula 2.0 28 06/09/17 09:05 78 176/86 06/09/17 09:03 78 176/86 06/09/17 08:00 97.8 78 20 176/87 96 Nasal Cannula 2.0 06/09/17 04:00 98.9 82 18 155/80 98 Nasal Cannula 2.0 06/08/17 20:57 84 168/87 06/08/17 20:00 98.3 84 18 168/87 94 Room Air 06/08/17 19:58 80 18 Room Air 06/08/17 16:00 98.2 81 20 149/63 92 Room Air Laboratory Tests 06/09/17 07:30: White Blood Count 12.3H, Red Blood Count 2.79L, Hemoglobin 8.4L, Hematocrit 25.8L, Mean Corpuscular Volume 92, Mean Corpuscular Hemoglobin 30.1, Mean Corpuscular Hemoglobin Concent 32.6, Red Cell Distribution Width 16.6H, Platelet Count 284, Mean Platelet Volume 6.7, Neutrophils (%) (Auto) 67.5, Lymphocytes (%) (Auto) 16.1L, Monocytes (%) (Auto) 13.1H, Eosinophils (%) (Auto ) 2.2, Basophils (%) (Auto) 1.1, Prothrombin Time 10.1, Prothromb Time International Ratio 1.0, Activated Partial Thromboplast Time 32, Sodium Level 140, Potassium Level 4.7, Chloride Level 110H, Carbon Dioxide Level 21, Anion Gap 9, Blood Urea Nitrogen 27H, Creatinine 2.1H, Estimat Glomerular Filtration Rate 38.5, Glucose Level 114H, Calcium Level 8.2L, Phosphorus Level 3.7, Magnesium Level 2.0, Total Bilirubin 0.2, Aspartate Amino Transf (AST/SGOT) 17, Alanine Aminotransferase (ALT/SGPT) 17, Alkaline Phosphatase 112, Total Protein 6.4, Albumin 2.1L, Globulin 4.3, Albumin/Globulin Ratio 0.4L Height (Feet): 6 Height (Inches): 2.00 Weight (Pounds): 112 General Appearance: no apparent distress Objective no change in PE TYE TINAJERO Jun 09, 2017 12:46
[2017-06-09] MEDS ORDERED: Meperidine 50mg/ml Inj(FOR RIGORS ONLY) IVP PRN (13:15)
[2017-06-09] MEDS ORDERED: DiphenhydrAMINE 50mg/ml Inj IVP PRN (13:15)
[2017-06-09] MEDS ORDERED: LORazepam Inj 2mg/ml 1ml IV PRN (13:15)
[2017-06-09] MEDS ORDERED: Hydromorphone 0.5mg/0.5ml inj IVP PRN ×2 (13:15→14:00)
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
--- NOTE | 2017-06-09 13:23 | Immediate Post-Op Evaluation ---
Immediate Post-Op Evalulation Immediate Post-Op Evalulation Procedure: Revision BKA right LE Date of Evaluation: Jun 09, 2017 Time of Evaluation: 12:04 IV Fluids: 675 Blood Products: 1 unit PRBC (250 cc's) Estimated Blood Loss: 120 Blood Pressure Systolic: 133 Blood Pressure Diastolic: 77 Pulse Rate: 94 Respiratory Rate: 10 O2 Sat by Pulse Oximetry: 97 Temperature (Fahrenheit): 98.4 Pain Score (1-10): 0 Nausea: No Vomiting: No Complications No complication Patient Status: reacts, patent, none Hydration Status: adequate Drug: Patient on Vanceduardo and MYA Ramirez M.D. Jun 09, 2017 13:23
--- NOTE | 2017-06-09 14:11 | Brief Operative Note ---
Immediate Post Operative Note Operative Note Pre-op Diagnosis: osteomyelitis of right below knee amputation stump Procedure: revision of right below knee amputation Post-op Diagnosis: osteomyelitis of right tibia Post-op Diagnosis: same as pre-op Findings: consistent w/pre-op dx studies Surgeon: Bud Burgess MD Print Producer: Davon De La Torre MD Anesthesiologist: Davon Carl MD Anesthesia: general Specimen: yes Complications: none Condition: stable Fluids: 675 ml crystaloid plus one unit PRBCs Estimated Blood Loss: volume - 150 ml Drains: none Implant(s) used?: No Ben Burgess MD Jun 09, 2017 14:11
--- NOTE | 2017-06-09 14:44 | Pulmonology Progress Note ---
Assessment/Plan Problems: (1) Syncope (2) Sepsis (3) Right BKA infection (4) HTN (hypertension) (5) Diabetes mellitus (6) Renal failure (7) BPH (benign prostatic hyperplasia) Assessment/Plan check electrolytes symptomatic treatment d/w surgeon for possible debridement or amputation Echo shoed previously 55% EF iv abx symptomatic treatment sliding scale Subjective ROS Limited/Unobtainable: No Interval Events: for surgery today Constitutional: Reports: no symptoms Allergies: Coded Allergies: No Known Allergies (Unverified , 04/25/17) Objective Last 24 Hour Vital Signs Date Time Temp Pulse Resp B/P (MAP) Pulse Ox O2 Delivery O2 Flow Rate FiO2 06/09/17 14:34 100 16 153/75 97 Nasal Cannula 3.0 06/09/17 14:25 92 12 147/74 97 Nasal Cannula 3.0 06/09/17 14:15 111 17 149/82 97 Simple Mask 6.0 06/09/17 14:05 101 18 143/80 97 Simple Mask 6.0 06/09/17 14:02 94 10 97 06/09/17 14:00 106 11 144/79 97 Simple Mask 6.0 06/09/17 13:55 98.4 111 18 144/79 97 Simple Mask 6.0 06/09/17 12:00 97.1 92 20 102/61 97 Room Air 06/09/17 09:46 82 16 Nasal Cannula 2.0 28 06/09/17 09:05 78 176/86 06/09/17 09:03 78 176/86 06/09/17 08:00 97.8 78 20 176/87 96 Nasal Cannula 2.0 06/09/17 04:00 98.9 82 18 155/80 98 Nasal Cannula 2.0 06/08/17 20:57 84 168/87 06/08/17 20:00 98.3 84 18 168/87 94 Room Air 06/08/17 19:58 80 18 Room Air 06/08/17 16:00 98.2 81 20 149/63 92 Room Air Intake and Output 06/09/17 06/10/17 19:00 07:00 Intake Total 200 ml Balance 200 ml IV Total 200 ml Objective General Appearance: WD/WN HEENT: normocephalic, mucous membranes moist Respiratory/Chest: chest wall non-tender, normal breath sounds Cardiovascular: normal peripheral pulses, normal rate Abdomen: normal bowel sounds, no organomegaly Laboratory Tests 06/09/17 07:30: White Blood Count 12.3H, Red Blood Count 2.79L, Hemoglobin 8.4L, Hematocrit 25.8L, Mean Corpuscular Volume 92, Mean Corpuscular Hemoglobin 30.1, Mean Corpuscular Hemoglobin Concent 32.6, Red Cell Distribution Width 16.6H, Platelet Count 284, Mean Platelet Volume 6.7, Neutrophils (%) (Auto) 67.5, Lymphocytes (%) (Auto) 16.1L, Monocytes (%) (Auto) 13.1H, Eosinophils (%) (Auto ) 2.2, Basophils (%) (Auto) 1.1, Prothrombin Time 10.1, Prothromb Time International Ratio 1.0, Activated Partial Thromboplast Time 32, Sodium Level 140, Potassium Level 4.7, Chloride Level 110H, Carbon Dioxide Level 21, Anion Gap 9, Blood Urea Nitrogen 27H, Creatinine 2.1H, Estimat Glomerular Filtration Rate 38.5, Glucose Level 114H, Calcium Level 8.2L, Phosphorus Level 3.7, Magnesium Level 2.0, Total Bilirubin 0.2, Aspartate Amino Transf (AST/SGOT) 17, Alanine Aminotransferase (ALT/SGPT) 17, Alkaline Phosphatase 112, Total Protein 6.4, Albumin 2.1L, Globulin 4.3, Albumin/Globulin Ratio 0.4L Current Medications Medications (Trade) Dose Ordered Sig/Dragan Route PRN Reason Start Time Stop Time Status Last Admin Dose Admin Acetaminophen (Tylenol) 650 mg Q4H PRN ORAL fever 06/02/17 17:00 06/29/17 16:59 Atorvastatin Calcium (Lipitor) 80 mg BEDTIME ORAL 06/02/17 21:00 06/30/17 20:59 06/08/17 20:58 Carvedilol (Coreg) 6.25 mg EVERY 12 HOURS ORAL 06/02/17 21:00 07/02/17 20:59 06/09/17 09:03 Ceftriaxone Sodium 2 gm/ Dextrose 110 ml @ 220 mls/hr Q24H IVPB 06/03/17 21:00 06/16/17 20:59 06/08/17 20:52 Clonidine HCl (Catapres) 0.1 mg Q4H PRN ORAL sbp more than 160 06/02/17 17:00 07/02/17 16:59 06/06/17 16:35 Dextrose (Dextrose 50%) STAT PRN IV Hypoglycemia 06/02/17 17:00 07/02/17 16:59 Diphenhydramine HCl (Benadryl) 25 mg Q15M PRN IVP Itching 06/09/17 13:15 06/09/17 19:15 Gabapentin (Neurontin) 300 mg BEDTIME ORAL 06/02/17 21:00 07/02/17 20:59 06/08/17 20:53 Heparin Sodium (Porcine) (Heparin 5000 units/ml) 5,000 units EVERY 12 HOURS SUBQ 06/09/17 21:00 07/09/17 20:59 UNV Hydralazine HCl (Apresoline) 5 mg Q30M PRN IV SBP>160 /DBP>100 06/09/17 13:15 06/09/17 19:15 Hydromorphone HCl (Dilaudid) 0.5 mg Q15M PRN IVP Severe Pain (Pain Scale 7-10) 06/09/17 13:15 06/09/17 19:15 06/09/17 14:34 Hydromorphone HCl (Dilaudid) 0.5 mg Q3H PRN IVP Pain Score 1-3 06/09/17 14:00 06/16/17 13:59 UNV Hydromorphone HCl (Dilaudid) 1 mg Q3H PRN IVP pain score 4-6 06/09/17 14:00 06/16/17 13:59 UNV Hydromorphone HCl (Dilaudid) 2 mg Q3H PRN IVP pain score 7-10 06/09/17 14:00 06/16/17 13:59 UNV Insulin Aspart (NovoLOG) BEFORE MEALS AND HS SUBQ 06/02/17 17:30 06/30/17 17:29 06/08/17 16:52 Insulin Aspart (NovoLOG) 4 units NOVOTIAC SUBQ 06/08/17 11:50 07/08/17 11:49 06/08/17 16:53 Insulin Detemir (Levemir) 10 units BEDTIME SUBQ 06/08/17 21:00 07/08/17 20:59 Lansoprazole (Prevacid) 30 mg DAILY ORAL 06/03/17 09:00 06/30/17 09:44 06/09/17 09:02 Lorazepam (Ativan 2mg/ml 1ml) 0.5 mg Q15M PRN IV For Anxiety 06/09/17 13:15 06/09/17 19:15 Meperidine HCl (Demerol) 25 mg ONCE PRN IVP Shivering 06/09/17 13:15 06/16/17 13:14 Morphine Sulfate (Morphine Sulfate) 2 mg Q4H PRN IVP severe pain 7-10 06/02/17 17:00 06/09/17 16:59 06/09/17 09:14 Nifedipine (Procardia XL) 60 mg DAILY ORAL 06/03/17 09:00 06/30/17 09:44 06/09/17 09:05 Nitroglycerin (Ntg) 0.4 mg Q5M X 3 DOSES PRN SL Prn Chest Pain 06/02/17 17:00 06/29/17 16:59 Ondansetron HCl (Zofran) 4 mg Q1H PRN IVP Nausea & Vomiting 06/09/17 13:15 06/09/17 19:15 Ondansetron HCl (Zofran) 4 mg Q6H PRN IVP Nausea & Vomiting 06/02/17 17:00 06/29/17 16:59 06/08/17 01:37 Ondansetron HCl (Zofran) 4 mg Q6H PRN IVP Nausea & Vomiting 06/09/17 14:00 07/09/17 13:59 UNV Polyethylene Glycol (Miralax) 17 gm HSPRN PRN ORAL Constipation 06/02/17 17:00 06/29/17 16:59 Sodium Chloride 1,000 ml @ 10 mls/hr Q24H IVLG 06/09/17 13:13 06/09/17 15:12 Sodium Chloride 1,000 ml @ 100 mls/hr Q10H IVLG 06/02/17 17:30 06/30/17 17:29 06/08/17 23:35 Tamsulosin HCl (Flomax) 0.4 mg Q12HR ORAL 06/02/17 21:00 06/30/17 20:59 06/09/17 09:02 BRIAN HERNANDEZ Jun 09, 2017 14:44
[2017-06-09] MEDS ORDERED: D5 1/2NS 1,000 ML IV SCH ×2 (14:45→18:45)
[2017-06-09] MEDS ORDERED: Vancomycin 1gm/D5W 275ml IVPB ONE ×2 (16:00)
--- NOTE | 2017-06-09 16:36 | Cardiac Electrophysiology PN ---
Assessment/Plan Status Narrative Mild left ventricular enlargement by 2D. Normal left ventricular systolic function and wall motion. Left ventricular ejection fraction estimated to be 55 %. Mild left ventricular hypertrophy. No evidence of pericardial fat or effusion. All other cardiac chamber sizes are within normal limits. Moderate focal aortic valve sclerosis with adequate cusp excursion. Mildly thickened mitral valve leaflets with normal excursion. Mild mitral annulus and aortic root calcification. Normal pulmonic valve structure. Normal tricuspid valve structure. IVC dilated at 2.1 cm with physiologic collapse. Assessment/Plan 1. Paroxysmal atrial fibrillation, On Coreg 6.25 bid. Resume Eliquis when OK with surgery. 2. Hypertension, Procardia XL 60 mg daily and Coreg 6.25 bid. 3. Hyperlipidemia, on Lipitor. 4. Status post right dktlz-hws-mrry higher level amputation 06/09/17.On IV antibiotic per ID DW RN Subjective Subjective Comfortable in NAD . Had surgery today. No chest pain or SOB. On IV Abx Objective Last 24 Hour Vital Signs Date Time Temp Pulse Resp B/P (MAP) Pulse Ox O2 Delivery O2 Flow Rate FiO2 06/09/17 15:47 97.7 109 19 161/83 99 Nasal Cannula 2.0 06/09/17 15:04 97.7 06/09/17 15:00 98.0 98 15 131/81 97 Nasal Cannula 3.0 06/09/17 14:45 96 20 127/95 97 Nasal Cannula 3.0 06/09/17 14:34 100 16 153/75 97 Nasal Cannula 3.0 06/09/17 14:25 92 12 147/74 97 Nasal Cannula 3.0 06/09/17 14:15 111 17 149/82 97 Simple Mask 6.0 06/09/17 14:05 101 18 143/80 97 Simple Mask 6.0 06/09/17 14:02 94 10 97 06/09/17 14:00 106 11 144/79 97 Simple Mask 6.0 06/09/17 13:55 98.4 111 18 144/79 97 Simple Mask 6.0 06/09/17 12:00 97.1 92 20 102/61 97 Room Air 06/09/17 09:46 82 16 Nasal Cannula 2.0 28 06/09/17 09:05 78 176/86 06/09/17 09:03 78 176/86 06/09/17 08:00 97.8 78 20 176/87 96 Nasal Cannula 2.0 06/09/17 04:00 98.9 82 18 155/80 98 Nasal Cannula 2.0 06/08/17 20:57 84 168/87 06/08/17 20:00 98.3 84 18 168/87 94 Room Air 06/08/17 19:58 80 18 Room Air Intake and Output 06/09/17 06/10/17 19:00 07:00 Intake Total 1250 ml Output Total 120 ml Balance 1130 ml IV Total 1000 ml Blood Product 250 ml Estimated Blood Loss 120 ml Laboratory Tests Test 06/09/17 07:30 White Blood Count 12.3 K/UL (4.8-10.8) H Red Blood Count 2.79 M/UL (4.70-6.10) L Hemoglobin 8.4 G/DL (14.2-18.0) L Hematocrit 25.8 % (42.0-52.0) L Mean Corpuscular Volume 92 FL (80-99) Mean Corpuscular Hemoglobin 30.1 PG (27.0-31.0) Mean Corpuscular Hemoglobin Concent 32.6 G/DL (32.0-36.0) Red Cell Distribution Width 16.6 % (11.6-14.8) H Platelet Count 284 K/UL (150-450) Mean Platelet Volume 6.7 FL (6.5-10.1) Neutrophils (%) (Auto) 67.5 % (45.0-75.0) Lymphocytes (%) (Auto) 16.1 % (20.0-45.0) L Monocytes (%) (Auto) 13.1 % (1.0-10.0) H Eosinophils (%) (Auto) 2.2 % (0.0-3.0) Basophils (%) (Auto) 1.1 % (0.0-2.0) Prothrombin Time 10.1 SEC (9.30-11.50) Prothromb Time International Ratio 1.0 (0.9-1.1) Activated Partial Thromboplast Time 32 SEC (23-33) Sodium Level 140 MMOL/L (136-145) Potassium Level 4.7 MMOL/L (3.5-5.1) Chloride Level 110 MMOL/L (98-107) H Carbon Dioxide Level 21 MMOL/L (21-32) Anion Gap 9 (5-15) Blood Urea Nitrogen 27 mg/dL (7-18) H Creatinine 2.1 MG/DL (0.55-1.30) H Estimat Glomerular Filtration Rate 38.5 mL/min (>60) Glucose Level 114 MG/DL (74-106) H Calcium Level 8.2 MG/DL (8.5-10.1) L Phosphorus Level 3.7 MG/DL (2.5-4.9) Magnesium Level 2.0 MG/DL (1.8-2.4) Total Bilirubin 0.2 MG/DL (0.2-1.0) Aspartate Amino Transf (AST/SGOT) 17 U/L (15-37) Alanine Aminotransferase (ALT/SGPT) 17 U/L (12-78) Alkaline Phosphatase 112 U/L (46-116) Total Protein 6.4 G/DL (6.4-8.2) Albumin 2.1 G/DL (3.4-5.0) L Globulin 4.3 g/dL Albumin/Globulin Ratio 0.4 (1.0-2.7) L Objective HEAD AND NECK: No JVD or carotid bruits. LUNGS: Clear. CARDIOVASCULAR: Shows regular S1 and S2 with no gallop. ABDOMEN: Soft. Extremities: Status post right [id number] Re-amputation MADI MAYBERRY Jun 09, 2017 16:36
--- NOTE | 2017-06-09 18:46 | General Progress Note ---
Assessment/Plan Problem List: (1) Uncontrolled diabetes mellitus ICD Codes: E11.65 - Type 2 diabetes mellitus with hyperglycemia SNOMED: 989804219, 55204099 (2) HTN (hypertension) ICD Codes: I10 - Essential (primary) hypertension SNOMED: 59373956 (3) BPH (benign prostatic hyperplasia) ICD Codes: N40.0 - Benign prostatic hyperplasia without lower urinary tract symptoms SNOMED: 245541819, 106257895 (4) Right BKA infection ICD Codes: T87.43 - Infection of amputation stump, right lower extremity SNOMED: 881138408 (5) Renal failure ICD Codes: N19 - Unspecified kidney failure SNOMED: 71933653 Assessment/Plan continue Levemir units qhs continue Novolog 4 units ac tid + SSI Subjective Allergies: Coded Allergies: No Known Allergies (Unverified , 04/25/17) All Systems: reviewed and negative except above Subjective events noted feeling better family at bedside having dinner Objective Last 24 Hour Vital Signs Date Time Temp Pulse Resp B/P (MAP) Pulse Ox O2 Delivery O2 Flow Rate FiO2 06/09/17 17:31 97.8 100 19 153/89 99 Nasal Cannula 2.0 06/09/17 15:47 97.7 109 19 161/83 99 Nasal Cannula 2.0 06/09/17 15:04 97.7 06/09/17 15:00 98.0 98 15 131/81 97 Nasal Cannula 3.0 06/09/17 14:45 96 20 127/95 97 Nasal Cannula 3.0 06/09/17 14:34 100 16 153/75 97 Nasal Cannula 3.0 06/09/17 14:25 92 12 147/74 97 Nasal Cannula 3.0 06/09/17 14:15 111 17 149/82 97 Simple Mask 6.0 06/09/17 14:05 101 18 143/80 97 Simple Mask 6.0 06/09/17 14:02 94 10 97 06/09/17 14:00 106 11 144/79 97 Simple Mask 6.0 06/09/17 13:55 98.4 111 18 144/79 97 Simple Mask 6.0 06/09/17 12:00 97.1 92 20 102/61 97 Room Air 06/09/17 09:46 82 16 Nasal Cannula 2.0 28 06/09/17 09:05 78 176/86 06/09/17 09:03 78 176/86 06/09/17 08:00 97.8 78 20 176/87 96 Nasal Cannula 2.0 06/09/17 04:00 98.9 82 18 155/80 98 Nasal Cannula 2.0 06/08/17 20:57 84 168/87 06/08/17 20:00 98.3 84 18 168/87 94 Room Air 06/08/17 19:58 80 18 Room Air Intake and Output 06/09/17 06/10/17 19:00 07:00 Intake Total 1250 ml Output Total 120 ml Balance 1130 ml IV Total 1000 ml Blood Product 250 ml Estimated Blood Loss 120 ml Laboratory Tests 06/09/17 07:30: White Blood Count 12.3H, Red Blood Count 2.79L, Hemoglobin 8.4L, Hematocrit 25.8L, Mean Corpuscular Volume 92, Mean Corpuscular Hemoglobin 30.1, Mean Corpuscular Hemoglobin Concent 32.6, Red Cell Distribution Width 16.6H, Platelet Count 284, Mean Platelet Volume 6.7, Neutrophils (%) (Auto) 67.5, Lymphocytes (%) (Auto) 16.1L, Monocytes (%) (Auto) 13.1H, Eosinophils (%) (Auto ) 2.2, Basophils (%) (Auto) 1.1, Prothrombin Time 10.1, Prothromb Time International Ratio 1.0, Activated Partial Thromboplast Time 32, Sodium Level 140, Potassium Level 4.7, Chloride Level 110H, Carbon Dioxide Level 21, Anion Gap 9, Blood Urea Nitrogen 27H, Creatinine 2.1H, Estimat Glomerular Filtration Rate 38.5, Glucose Level 114H, Calcium Level 8.2L, Phosphorus Level 3.7, Magnesium Level 2.0, Total Bilirubin 0.2, Aspartate Amino Transf (AST/SGOT) 17, Alanine Aminotransferase (ALT/SGPT) 17, Alkaline Phosphatase 112, Total Protein 6.4, Albumin 2.1L, Globulin 4.3, Albumin/Globulin Ratio 0.4L Height (Feet): 6 Height (Inches): 2.00 Weight (Pounds): 112 General Appearance: no apparent distress Neck: normal alignment Cardiovascular: normal rate Respiratory/Chest: chest wall non-tender, lungs clear Extremities: other - right BKA Objective Current Medications Medications (Trade) Dose Ordered Sig/Dragan Route PRN Reason Start Time Stop Time Status Last Admin Dose Admin Acetaminophen (Tylenol) 650 mg Q4H PRN ORAL fever 06/02/17 17:00 06/29/17 16:59 Apixaban (Eliquis) 2.5 mg BID ORAL 06/10/17 09:00 07/10/17 08:59 Atorvastatin Calcium (Lipitor) 80 mg BEDTIME ORAL 06/02/17 21:00 06/30/17 20:59 06/08/17 20:58 Carvedilol (Coreg) 6.25 mg EVERY 12 HOURS ORAL 06/02/17 21:00 07/02/17 20:59 06/09/17 09:03 Clonidine HCl (Catapres) 0.1 mg Q4H PRN ORAL sbp more than 160 06/02/17 17:00 07/02/17 16:59 06/06/17 16:35 Dextrose (Dextrose 50%) STAT PRN IV Hypoglycemia 06/02/17 17:00 07/02/17 16:59 Dextrose/Sodium Chloride 1,000 ml @ 50 mls/hr Q20H IV 06/09/17 18:45 07/09/17 18:44 Diphenhydramine HCl (Benadryl) 25 mg Q15M PRN IVP Itching 06/09/17 13:15 06/09/17 19:15 Gabapentin (Neurontin) 300 mg BEDTIME ORAL 06/02/17 21:00 07/02/17 20:59 06/08/17 20:53 Heparin Sodium (Porcine) (Heparin 5000 units/ml) 5,000 units EVERY 12 HOURS SUBQ 06/09/17 21:00 07/09/17 20:59 Hydralazine HCl (Apresoline) 5 mg Q30M PRN IV SBP>160 /DBP>100 06/09/17 13:15 06/09/17 19:15 Hydromorphone HCl (Dilaudid) 0.5 mg Q15M PRN IVP Severe Pain (Pain Scale 7-10) 06/09/17 13:15 06/09/17 19:15 06/09/17 14:34 Hydromorphone HCl (Dilaudid) 0.5 mg Q3H PRN IVP Pain Score 1-3 06/09/17 14:00 06/16/17 13:59 Hydromorphone HCl (Dilaudid) 1 mg Q3H PRN IVP pain score 4-6 06/09/17 14:00 06/16/17 13:59 Hydromorphone HCl (Dilaudid) 2 mg Q3H PRN IVP pain score 7-10 06/09/17 14:00 06/16/17 13:59 06/09/17 17:06 Insulin Aspart (NovoLOG) BEFORE MEALS AND HS SUBQ 06/02/17 17:30 06/30/17 17:29 06/08/17 16:52 Insulin Aspart (NovoLOG) 4 units NOVOTIAC SUBQ 06/08/17 11:50 07/08/17 11:49 06/08/17 16:53 Insulin Detemir (Levemir) 10 units BEDTIME SUBQ 06/08/17 21:00 07/08/17 20:59 Lansoprazole (Prevacid) 30 mg DAILY ORAL 06/03/17 09:00 06/30/17 09:44 06/09/17 09:02 Lorazepam (Ativan 2mg/ml 1ml) 0.5 mg Q15M PRN IV For Anxiety 06/09/17 13:15 06/09/17 19:15 Meperidine HCl (Demerol) 25 mg ONCE PRN IVP Shivering 06/09/17 13:15 06/16/17 13:14 Nifedipine (Procardia XL) 60 mg DAILY ORAL 06/03/17 09:00 06/30/17 09:44 06/09/17 09:05 Nitroglycerin (Ntg) 0.4 mg Q5M X 3 DOSES PRN SL Prn Chest Pain 06/02/17 17:00 06/29/17 16:59 Ondansetron HCl (Zofran) 4 mg Q1H PRN IVP Nausea & Vomiting 06/09/17 13:15 06/09/17 19:15 Ondansetron HCl (Zofran) 4 mg Q6H PRN IVP Nausea & Vomiting 06/02/17 17:00 06/29/17 16:59 06/08/17 01:37 Ondansetron HCl (Zofran) 4 mg Q6H PRN IVP Nausea & Vomiting 06/09/17 14:00 07/09/17 13:59 Piperacillin Sod/ Tazobactam Sod 3.375 gm/Dextrose 110 ml @ 27.5 mls/hr Q8H IVPB 06/09/17 18:00 06/16/17 17:59 Polyethylene Glycol (Miralax) 17 gm HSPRN PRN ORAL Constipation 06/02/17 17:00 06/29/17 16:59 Sodium Chloride 1,000 ml @ 100 mls/hr Q10H IVLG 06/02/17 17:30 06/30/17 17:29 06/08/17 23:35 Tamsulosin HCl (Flomax) 0.4 mg Q12HR ORAL 06/02/17 21:00 06/30/17 20:59 06/09/17 09:02 Item Value Date Time Bedside Blood Glucose 126 mg/dl H 06/09/17 1650 Glucose Level 114 MG/DL H 06/09/17 0730 Bedside Blood Glucose 127 mg/dl H 06/09/17 0628 CHRISTIAN MARIN Jun 09, 2017 18:46
[2017-06-09] MEDS ORDERED: Tubing IV Secondary IV ONE (18:53)
[2017-06-09] MEDS: Piperacillin/Tazobactam 3.375 GM in D5W 110 ML IVPB SCH (19:04)
[2017-06-09] MEDS: Atorvastatin 80mg tab ORAL SCH (21:22)
[2017-06-09] MEDS: Levemir Flexpen SUBQ SCH (21:29)
[2017-06-09] MEDS: Heparin 5000 units/ml inj SUBQ SCH (21:30)
--- NOTE | 2017-06-09 21:48 | General Progress Note ---
Assessment/Plan Assessment/Plan ASSESSMENT AND PLAN: # Leukocytosis 2/2 OM, s/p surgical debridement. 1. Anemia secondary to chronic disease. Anemia workup has been reviewed, consistent with anemia of chronic disease. -->hgb goal is above 8 2. Decreased hemoglobin and hematocrit. Rule out gastrointestinal bleed. Occult blood is negative. 3. Acute kidney injury 4. Diabetes mellitus. Continue to better control diabetes mellitus. Subjective Constitutional: Reports: no symptoms HEENT: Reports: no symptoms Cardiovascular: Reports: no symptoms Respiratory: Reports: no symptoms Gastrointestinal/Abdominal: Reports: no symptoms Genitourinary: Reports: no symptoms Neurologic/Psychiatric: Reports: no symptoms Endocrine: Reports: no symptoms Hematologic/Lymphatic: Reports: no symptoms Allergies: Coded Allergies: No Known Allergies (Unverified , 04/25/17) Subjective s/p debridement Objective Last 24 Hour Vital Signs Date Time Temp Pulse Resp B/P (MAP) Pulse Ox O2 Delivery O2 Flow Rate FiO2 06/09/17 21:22 92 141/83 06/09/17 20:39 98.0 92 19 141/83 91 Room Air 06/09/17 17:31 97.8 100 19 153/89 99 Nasal Cannula 2.0 06/09/17 15:47 97.7 109 19 161/83 99 Nasal Cannula 2.0 06/09/17 15:04 97.7 06/09/17 15:00 98.0 98 15 131/81 97 Nasal Cannula 3.0 06/09/17 14:45 96 20 127/95 97 Nasal Cannula 3.0 06/09/17 14:34 100 16 153/75 97 Nasal Cannula 3.0 06/09/17 14:25 92 12 147/74 97 Nasal Cannula 3.0 06/09/17 14:15 111 17 149/82 97 Simple Mask 6.0 06/09/17 14:05 101 18 143/80 97 Simple Mask 6.0 06/09/17 14:02 94 10 97 06/09/17 14:00 106 11 144/79 97 Simple Mask 6.0 06/09/17 13:55 98.4 111 18 144/79 97 Simple Mask 6.0 06/09/17 12:00 97.1 92 20 102/61 97 Room Air 06/09/17 09:46 82 16 Nasal Cannula 2.0 28 06/09/17 09:05 78 176/86 06/09/17 09:03 78 176/86 06/09/17 08:00 97.8 78 20 176/87 96 Nasal Cannula 2.0 06/09/17 04:00 98.9 82 18 155/80 98 Nasal Cannula 2.0 Intake and Output 06/09/17 06/10/17 19:00 07:00 Intake Total 1250 ml Output Total 120 ml Balance 1130 ml IV Total 1000 ml Blood Product 250 ml Estimated Blood Loss 120 ml Laboratory Tests 06/09/17 07:30: White Blood Count 12.3H, Red Blood Count 2.79L, Hemoglobin 8.4L, Hematocrit 25.8L, Mean Corpuscular Volume 92, Mean Corpuscular Hemoglobin 30.1, Mean Corpuscular Hemoglobin Concent 32.6, Red Cell Distribution Width 16.6H, Platelet Count 284, Mean Platelet Volume 6.7, Neutrophils (%) (Auto) 67.5, Lymphocytes (%) (Auto) 16.1L, Monocytes (%) (Auto) 13.1H, Eosinophils (%) (Auto ) 2.2, Basophils (%) (Auto) 1.1, Prothrombin Time 10.1, Prothromb Time International Ratio 1.0, Activated Partial Thromboplast Time 32, Sodium Level 140, Potassium Level 4.7, Chloride Level 110H, Carbon Dioxide Level 21, Anion Gap 9, Blood Urea Nitrogen 27H, Creatinine 2.1H, Estimat Glomerular Filtration Rate 38.5, Glucose Level 114H, Calcium Level 8.2L, Phosphorus Level 3.7, Magnesium Level 2.0, Total Bilirubin 0.2, Aspartate Amino Transf (AST/SGOT) 17, Alanine Aminotransferase (ALT/SGPT) 17, Alkaline Phosphatase 112, Total Protein 6.4, Albumin 2.1L, Globulin 4.3, Albumin/Globulin Ratio 0.4L Height (Feet): 6 Height (Inches): 2.00 Weight (Pounds): 112 General Appearance: no apparent distress EENT: normal ENT inspection Neck: normal alignment Cardiovascular: normal peripheral pulses Respiratory/Chest: normal breath sounds Abdomen: normal bowel sounds, no organomegaly Skin: warm/dry Dino Acosta Jun 09, 2017 21:48
--- NOTE | 2017-06-10 00:45 | Operative Note - Dictated ---
DATE OF OPERATION: 06/09/2017 PREOPERATIVE DIAGNOSIS: Osteomyelitis of right below-knee amputation stump, right tibia. POSTOPERATIVE DIAGNOSIS: Osteomyelitis of right below-knee amputation stump, right tibia. PROCEDURE: Revision of right below-knee amputation stump. SURGEON: Ben Burgess M.D. INTERNATIONAL TRADE ANALYST: Artur De La Torre M.D. ANESTHESIA: General by laryngeal mask airway. ANESTHESIOLOGIST: Ralph Carl M.D. INDICATIONS FOR SURGERY: This 66-year-old male, diabetic with history of peripheral vascular disease secondary to cigarette smoking, underwent a right below-knee amputation approximately six years ago. The patient fell and struck the right knee stump approximately three months ago resulting in an open wound. He developed an infection in the wound. X-ray studies confirmed the presence of osteomyelitis. He was given a course of oral antibiotics without success. He was started on parenteral antibiotics. He had exposed bone on the wound as well as purulent drainage. He was advised to undergo a revision of the below-knee amputation stump and was also informed that the procedure may not result in wound healing thus necessitating a right oihub-wzv-mkqs amputation. OPERATIVE FINDINGS: The right wzqmw-bks-opqh amputation stump had prominent edema. The severed bone appeared healthy. The circulation appeared adequate. The posterior tibial vessels were patent as were the anterior tibial. OPERATIVE TECHNIQUE: With the patient in the supine position, after induction of adequate general anesthesia, the right leg and right below-knee amputation stump were prepped and draped in sterile fashion. A time-out was called. An incision was fashioned approximately 13 cm proximal to the end of the stump. A posterior flap was incised. The medial aspect was incised. The subcutaneous tissue was divided by electrocautery. There was prominent edema noted. The anterior incision was made down through the periosteum of the tibia. The lateral flap was then developed sharply with a scalpel and electrocautery. The anterior medial muscle bundle was incised and divided with electrocautery. The lateral musculature was also divided by electrocautery. The space between the muscles and the tibia was dissected. The bone was divided with the power saw. The remaining posterior muscular attachments were divided by sharp dissection and electrocautery. There was some bleeding from the posterior tibial vessels. The bleeding was controlled with interrupted kwolux-xm-cvaag 2-0 Vicryl sutures. The anterior tibial vessels were also divided and the bleeding was controlled with interrupted 2-0 Vicryl [id number] sutures. The fibula was exposed. The surrounding periosteum was retracted with a periosteal elevator. The fibula was transected approximately 4 cm proximal to the tibial incision. The anterior aspect of the cut tibia was beveled with with a saw and a rasp. Some oozing from the marrow was controlled with bone wax. The wound was then irrigated with antibiotic solution with the power irrigation device. The wound was again inspected. Several oozing points were cauterized. The flap was attached to the anterior fascia and this was quite tight. This necessitated resecting another centimeter of tibia. Again, the cut edges of the tibia were beveled and treated with the rasp. The posterior flap was approximated to the anterior fascia with interrupted 2-0 Vicryl horizontal mattress sutures. The skin was reapproximated with interrupted 2-0 nylon vertical mattress sutures. The wound edge was again irrigated with the antibiotic solution. The sterile dressings were applied. The leg was wrapped with sterile dressing, Kerlix gauze, and a stockinette. The patient tolerated the procedure well and has returned to the recovery room in stable condition. The estimated blood loss was 150 mL. He received 675 mL of crystalloid and one unit of packed cells. Ben Burgess M.D. DR: EUGENIO JOB#: [id number] CC:
[2017-06-10 00:49] VITALS: BP 142/81
[2017-06-10] MEDS: Piperacillin/Tazobactam 3.375 GM in D5W 110 ML IVPB SCH ×3 (01:18→17:36)
[2017-06-10 04:00] VITALS: BP 122/85
--- NOTE | 2017-06-10 05:55 | General Progress Note ---
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 - Infection of amputation stump, right lower extremity SNOMED: 635660732 (5) Renal failure ICD Codes: N19 - Unspecified kidney failure SNOMED: 60096283 Assessment/Plan continue Levemir 10 units qhs reduce Novolog 4 to 3 units ac tid + SSI Subjective Allergies: Coded Allergies: No Known Allergies (Unverified , 04/25/17) All Systems: reviewed and negative except above Subjective events noted Objective Last 24 Hour Vital Signs Date Time Temp Pulse Resp B/P (MAP) Pulse Ox O2 Delivery O2 Flow Rate FiO2 06/10/17 04:00 98.3 82 19 122/85 93 Room Air 06/10/17 00:49 98.3 108 18 142/81 93 Room Air 06/09/17 21:22 92 141/83 06/09/17 20:39 98.0 92 19 141/83 91 Room Air 06/09/17 19:05 78 16 Nasal Cannula 2.0 28 06/09/17 17:31 97.8 100 19 153/89 99 Nasal Cannula 2.0 06/09/17 15:47 97.7 109 19 161/83 99 Nasal Cannula 2.0 06/09/17 15:04 97.7 06/09/17 15:00 98.0 98 15 131/81 97 Nasal Cannula 3.0 06/09/17 14:45 96 20 127/95 97 Nasal Cannula 3.0 06/09/17 14:34 100 16 153/75 97 Nasal Cannula 3.0 06/09/17 14:25 92 12 147/74 97 Nasal Cannula 3.0 06/09/17 14:15 111 17 149/82 97 Simple Mask 6.0 06/09/17 14:05 101 18 143/80 97 Simple Mask 6.0 06/09/17 14:02 94 10 97 06/09/17 14:00 106 11 144/79 97 Simple Mask 6.0 06/09/17 13:55 98.4 111 18 144/79 97 Simple Mask 6.0 06/09/17 12:00 97.1 92 20 102/61 97 Room Air 06/09/17 09:46 82 16 Nasal Cannula 2.0 28 06/09/17 09:05 78 176/86 06/09/17 09:03 78 176/86 06/09/17 08:00 97.8 78 20 176/87 96 Nasal Cannula 2.0 Laboratory Tests 06/09/17 07:30: White Blood Count 12.3H, Red Blood Count 2.79L, Hemoglobin 8.4L, Hematocrit 25.8L, Mean Corpuscular Volume 92, Mean Corpuscular Hemoglobin 30.1, Mean Corpuscular Hemoglobin Concent 32.6, Red Cell Distribution Width 16.6H, Platelet Count 284, Mean Platelet Volume 6.7, Neutrophils (%) (Auto) 67.5, Lymphocytes (%) (Auto) 16.1L, Monocytes (%) (Auto) 13.1H, Eosinophils (%) (Auto ) 2.2, Basophils (%) (Auto) 1.1, Prothrombin Time 10.1, Prothromb Time International Ratio 1.0, Activated Partial Thromboplast Time 32, Sodium Level 140, Potassium Level 4.7, Chloride Level 110H, Carbon Dioxide Level 21, Anion Gap 9, Blood Urea Nitrogen 27H, Creatinine 2.1H, Estimat Glomerular Filtration Rate 38.5, Glucose Level 114H, Calcium Level 8.2L, Phosphorus Level 3.7, Magnesium Level 2.0, Total Bilirubin 0.2, Aspartate Amino Transf (AST/SGOT) 17, Alanine Aminotransferase (ALT/SGPT) 17, Alkaline Phosphatase 112, Total Protein 6.4, Albumin 2.1L, Globulin 4.3, Albumin/Globulin Ratio 0.4L Height (Feet): 6 Height (Inches): 2.00 Weight (Pounds): 112 General Appearance: no apparent distress Neck: normal alignment Cardiovascular: normal rate Respiratory/Chest: lungs clear Abdomen: normal bowel sounds Extremities: other - right BKA Objective Current Medications Medications (Trade) Dose Ordered Sig/Dragan Route PRN Reason Start Time Stop Time Status Last Admin Dose Admin Acetaminophen (Tylenol) 650 mg Q4H PRN ORAL fever 06/02/17 17:00 10/29/17 16:59 Apixaban (Eliquis) 2.5 mg BID ORAL 06/10/17 09:00 07/10/17 08:59 Atorvastatin Calcium (Lipitor) 80 mg BEDTIME ORAL 06/02/17 21:00 06/30/17 20:59 06/09/17 21:22 Carvedilol (Coreg) 6.25 mg EVERY 12 HOURS ORAL 06/02/17 21:00 07/02/17 20:59 06/09/17 21:22 Clonidine HCl (Catapres) 0.1 mg Q4H PRN ORAL sbp more than 160 06/02/17 17:00 07/02/17 16:59 06/06/17 16:35 Dextrose (Dextrose 50%) STAT PRN IV Hypoglycemia 06/02/17 17:00 07/02/17 16:59 Dextrose/Sodium Chloride 1,000 ml @ 50 mls/hr Q20H IV 06/09/17 18:45 07/09/17 18:44 06/09/17 19:04 Gabapentin (Neurontin) 300 mg BEDTIME ORAL 06/02/17 21:00 07/02/17 20:59 06/09/17 21:22 Heparin Sodium (Porcine) (Heparin 5000 units/ml) 5,000 units EVERY 12 HOURS SUBQ 06/09/17 21:00 07/09/17 20:59 06/09/17 21:30 Hydromorphone HCl (Dilaudid) 0.5 mg Q3H PRN IVP Pain Score 1-3 06/09/17 14:00 06/16/17 13:59 Hydromorphone HCl (Dilaudid) 1 mg Q3H PRN IVP pain score 4-6 06/09/17 14:00 06/16/17 13:59 Hydromorphone HCl (Dilaudid) 2 mg Q3H PRN IVP pain score 7-10 06/09/17 14:00 06/16/17 13:59 06/10/17 01:25 Insulin Aspart (NovoLOG) BEFORE MEALS AND HS SUBQ 06/02/17 17:30 06/30/17 17:29 06/08/17 16:52 Insulin Aspart (NovoLOG) 4 units NOVOTIAC SUBQ 06/08/17 11:50 07/08/17 11:49 10/8/17 16:53 Insulin Detemir (Levemir) 10 units BEDTIME SUBQ 06/08/17 21:00 07/08/17 20:59 06/09/17 21:29 Lansoprazole (Prevacid) 30 mg DAILY ORAL 06/03/17 09:00 06/30/17 09:44 06/09/17 09:02 Meperidine HCl (Demerol) 25 mg ONCE PRN IVP Shivering 06/09/17 13:15 06/16/17 13:14 Nifedipine (Procardia XL) 60 mg DAILY ORAL 06/03/17 09:00 06/30/17 09:44 06/09/17 09:05 Nitroglycerin (Ntg) 0.4 mg Q5M X 3 DOSES PRN SL Prn Chest Pain 06/02/17 17:00 06/29/17 16:59 Ondansetron HCl (Zofran) 4 mg Q6H PRN IVP Nausea & Vomiting 06/02/17 17:00 06/29/17 16:59 06/08/17 01:37 Ondansetron HCl (Zofran) 4 mg Q6H PRN IVP Nausea & Vomiting 06/09/17 14:00 07/09/17 13:59 Piperacillin Sod/ Tazobactam Sod 3.375 gm/Dextrose 110 ml @ 27.5 mls/hr Q8H IVPB 06/09/17 18:00 06/16/17 17:59 06/10/17 01:18 Polyethylene Glycol (Miralax) 17 gm HSPRN PRN ORAL Constipation 06/02/17 17:00 06/29/17 16:59 Tamsulosin HCl (Flomax) 0.4 mg Q12HR ORAL 06/02/17 21:00 06/30/17 20:59 06/09/17 21:22 Item Value Date Time Bedside Blood Glucose 126 mg/dl H 06/09/17 1650 Glucose Level 114 MG/DL H 06/09/17 07 Bedside Blood Glucose 127 mg/dl H 06/09/17 06 CHRISTIAN MARIN Jun 10, 2017 05:55
[2017-06-10] MEDS: NovoLOG Insulin Flexpen SUBQ SCH ×8 (06:44→21:41)
--- NOTE | 2017-06-10 07:08 | 48 Hour Post Anesthesia Eval ---
Post Anesthesia Evaluation Procedure: Revision BKA right LE Date of Evaluation: Jun 10, 2017 Time of Evaluation: 07:07 Blood Pressure Systolic: 122 0: 78 Pulse Rate: 82 Respiratory Rate: 19 Temperature (Fahrenheit): 98.3 O2 Sat by Pulse Oximetry: 93 Airway: patent Nausea: No Vomiting: No Pain Intensity: 2 Hydration Status: adequate Cardiopulmonary Status: Stable Mental Status/LOC: patient returned to baseline Follow-up Care/Observations: 0 Post-Anesthesia Complications: 0 Follow-up care needed: N/A Og Davis MD Jun 10, 2017 07:08
[2017-06-10 08:00] VITALS: BP 148/74
[2017-06-10 08:32] LABS: EOSINOPHILS % (AUTO) 0.7 % (0.0-3.0); LYMPHOCYTES % (AUTO) 9.1 % (20.0-45.0); MEAN CORPUSCULAR HEMOGLOBIN 30.6 PG (27.0-31.0); MEAN CORPUSCULAR VOLUME 93 FL (80-99); MONOCYTES % (AUTO) 13.6 % (1.0-10.0); NEUTROPHILS % (AUTO) 75.6 % (45.0-75.0); PLATELET COUNT 278 K/UL (150-450); RED BLOOD COUNT 3.17 M/UL (4.70-6.10); RED CELL DISTRIBUTION WIDTH 15.7 % (11.6-14.8); WHITE BLOOD COUNT 14.4 K/UL (4.8-10.8)
[2017-06-10] MEDS: Eliquis 2.5mg tablet ORAL SCH ×2 (08:41→17:28)
[2017-06-10] MEDS: Tamsulosin 0.4mg cap ORAL SCH ×2 (08:41→21:35)
[2017-06-10] MEDS: Carvedilol 6.25mg Tab ORAL SCH ×2 (08:42→21:35)
[2017-06-10] MEDS: Heparin 5000 units/ml inj SUBQ SCH ×2 (08:43→21:40)
[2017-06-10 10:40] LABS: ANION GAP 11 (5-15); CALCIUM 8.7 MG/DL (8.5-10.1); CARBON DIOXIDE 19 MMOL/L (21-32); CHLORIDE 103 MMOL/L (98-107); CREATININE 2.2 MG/DL (0.55-1.30); GLOMERULAR FILTRATION RATE 36.5 mL/min (>60); POTASSIUM 4.7 MMOL/L (3.5-5.1); SODIUM 133 MMOL/L (136-145)
--- NOTE | 2017-06-10 11:55 | General Progress Note ---
Assessment/Plan Status: stable Status Narrative Cr 2.2 Assessment/Plan admitted for syncope Has DM OOC h/o A fib acute renal failure on CRI previous Cr 1.9 now 2.1 h/o bladder outlet obstruction) per AILYN in past Also due to DM and HTN, has 3+ Proteinuria anemia DM HTN R BKA stump wound BLE pain severe protein calorie malnutrition Urinary retention due to bladder out let Obstruction bladder outlet obstruction Plan: monitor renal parameters continue IV change to isotonic solution Surgical intervention for Osteo on 06/09- post op care BS control Optimize BS and BP status Avoid nephrotoxics Flomax BID Anemia crawford DC planning Subjective ROS Limited/Unobtainable: No Constitutional: Reports: malaise Allergies: Coded Allergies: No Known Allergies (Unverified , 04/25/17) Objective Last 24 Hour Vital Signs Date Time Temp Pulse Resp B/P (MAP) Pulse Ox O2 Delivery O2 Flow Rate FiO2 06/10/17 08:42 80 133/68 06/10/17 08:42 80 133/68 06/10/17 08:00 98.9 89 18 148/74 95 Room Air 06/10/17 07:08 82 19 93 06/10/17 04:00 98.3 82 19 122/85 93 Room Air 06/10/17 00:49 98.3 108 18 142/81 93 Room Air 06/09/17 21:22 92 141/83 06/09/17 20:39 98.0 92 19 141/83 91 Room Air 06/09/17 19:05 78 16 Nasal Cannula 2.0 28 06/09/17 17:31 97.8 100 19 153/89 99 Nasal Cannula 2.0 06/09/17 15:47 97.7 109 19 161/83 99 Nasal Cannula 2.0 06/09/17 15:04 97.7 06/09/17 15:00 98.0 98 15 131/81 97 Nasal Cannula 3.0 06/09/17 14:45 96 20 127/95 97 Nasal Cannula 3.0 06/09/17 14:34 100 16 153/75 97 Nasal Cannula 3.0 06/09/17 14:25 92 12 147/74 97 Nasal Cannula 3.0 06/09/17 14:15 111 17 149/82 97 Simple Mask 6.0 06/09/17 14:05 101 18 143/80 97 Simple Mask 6.0 06/09/17 14:02 94 10 97 06/09/17 14:00 106 11 144/79 97 Simple Mask 6.0 06/09/17 13:55 98.4 111 18 144/79 97 Simple Mask 6.0 06/09/17 12:00 97.1 92 20 102/61 97 Room Air Laboratory Tests 06/10/17 07:48: White Blood Count 14.4H, Red Blood Count 3.17L, Hemoglobin 9.7L, Hematocrit 29.4L, Mean Corpuscular Volume 93, Mean Corpuscular Hemoglobin 30.6, Mean Corpuscular Hemoglobin Concent 33.0, Red Cell Distribution Width 15.7H, Platelet Count 278, Mean Platelet Volume 7.0, Neutrophils (%) (Auto) 75.6H, Lymphocytes (%) (Auto) 9.1L, Monocytes (%) (Auto) 13.6H, Eosinophils (%) (Auto) 0.7, Basophils (%) (Auto) 1.0, Sodium Level 133L, Potassium Level 4.7, Chloride Level 103, Carbon Dioxide Level 19L, Anion Gap 11, Blood Urea Nitrogen 28H, Creatinine 2.2H, Estimat Glomerular Filtration Rate 36.5, Glucose Level 263#H, Calcium Level 8.7 Height (Feet): 6 Height (Inches): 2.00 Weight (Pounds): 112 General Appearance: no apparent distress Objective no change in PE TYE TINAJERO Jun 10, 2017 11:55
[2017-06-10 12:00] VITALS: BP 136/70
--- NOTE | 2017-06-10 15:14 | General Progress Note ---
Progress Note Progress Note Surgery: patient seen and examined at bedside. doing well. no complaints. pain from incision. no n/v/f/c. comfortable. Afebrile, HD stable, labs reviewed dressings saturated dressings removed and wound evaluated. no tension, minimal edema, no fluid collection, no signs of infection, sutures intact, wound clean new dressings applied. -diet as tolerated -dressings daily and prn -will monitor to ensure good flap closure over the next few days. -Abx as per ID Artur De La Torre Jun 10, 2017 15:14
[2017-06-10 16:00] VITALS: BP 134/63
--- NOTE | 2017-06-10 16:46 | Infectious Diseases Prog Note ---
Assessment/Plan Assessment/Plan ASSESSMENT: The patient is a 66-year-old male with: Right BKA stump wound infection with Acute OM s/p revision 06/09 -OR findings: The right [id number] amputation stump had prominent edema. The severed bone appeared healthy. The circulation appeared adequate. The posterior tibial vessels were patent as were the anterior tibial. ?OR Cx sent -wound cx: +4 Serratia Marcecens (S. Ceftriaxone, levo/cipro, Bactrim, Zosyn), +4 E. cloace (S. Ceftriaxone, levo/Cipro, Zosyn; R bactrim); possible that these represents colonizer as wound cx was superficial and likely pathogens could still be Strep sp and MSSA. -s/p admission in [facility] in March for stump infection s/p 4 weeks of PO abx (pt unsure of abx) -06/03 ESR 116, CRP 6.1 Leukocytosis, mild- persistent- worsening now post-op -Bcx Neg Pyuria/Bacteriuria (assymptomatic) -u/a WBC 5-10, nit +, leuk +3; ucx >100K Serratia marcenses (S. CTX, zosy, Cipro, bactrim) NOHELIA on CKD, improving -renal U/s: Mild right hydronephrosis.Left kidney is normal. No left hydronephrosis. Left renal cyst is noted. Distended urinary bladder with wall thickening. There is layering debris within the urinary bladder. Cystitis cannot be excluded Hyperlipidemia. History of hypoglycemia. Hypertension. Diabetes. Atrial fibrillation. PLAN: -Continue IV Ceftriaxone #8 (abx d#11) -s/p 5d IV Vanco, 4d Zosyn 06/03 -will monitor closely for worsening of symptoms,fever, leukocytosis as organisms isolated has potential of ESBL inducibility -Will discuss with surgery re OR findings for guidance of duration of abx -F/u OR cultures -Trend WBC -Monitor CBC/ BMP, temperatures -wound care Discussed with RN and Dr Medellin Subjective Allergies: Coded Allergies: No Known Allergies (Unverified , 04/25/17) Subjective afebrile VSS at RA leukocytosis worsned to 14 (now post-op) s/p R BKA stump revision Objective Vital Signs Last 24 Hour Vital Signs Date Time Temp Pulse Resp B/P (MAP) Pulse Ox O2 Delivery O2 Flow Rate FiO2 06/10/17 16:00 98.6 80 19 134/63 95 Room Air 06/10/17 12:00 97.9 82 18 136/70 95 Room Air 06/10/17 08:42 80 133/68 06/10/17 08:42 80 133/68 06/10/17 08:00 98.9 89 18 148/74 95 Room Air 06/10/17 07:08 82 19 93 06/10/17 04:00 98.3 82 19 122/85 93 Room Air 06/10/17 00:49 98.3 108 18 142/81 93 Room Air 06/09/17 21:22 92 141/83 06/09/17 20:39 98.0 92 19 141/83 91 Room Air 06/09/17 19:05 78 16 Nasal Cannula 2.0 28 06/09/17 17:31 97.8 100 19 153/89 99 Nasal Cannula 2.0 Height (Feet): 6 Height (Inches): 2.00 Weight (Pounds): 112 Objective HEENT: No pale conjunctivae. No icterus. NECK: No lymphadenopathy. CHEST: Clear. HEART: S1 and S2. ABDOMEN: Soft and nontender. EXTREMITIES: Right BKA wrapped. NEUROLOGIC: Awake and alert. Laboratory Tests Test 06/10/17 07:48 White Blood Count 14.4 K/UL (4.8-10.8) H Red Blood Count 3.17 M/UL (4.70-6.10) L Hemoglobin 9.7 G/DL (14.2-18.0) L Hematocrit 29.4 % (42.0-52.0) L Mean Corpuscular Volume 93 FL (80-99) Mean Corpuscular Hemoglobin 30.6 PG (27.0-31.0) Mean Corpuscular Hemoglobin Concent 33.0 G/DL (32.0-36.0) Red Cell Distribution Width 15.7 % (11.6-14.8) H Platelet Count 278 K/UL (150-450) Mean Platelet Volume 7.0 FL (6.5-10.1) Neutrophils (%) (Auto) 75.6 % (45.0-75.0) H Lymphocytes (%) (Auto) 9.1 % (20.0-45.0) L Monocytes (%) (Auto) 13.6 % (1.0-10.0) H Eosinophils (%) (Auto) 0.7 % (0.0-3.0) Basophils (%) (Auto) 1.0 % (0.0-2.0) Sodium Level 133 MMOL/L (136-145) L Potassium Level 4.7 MMOL/L (3.5-5.1) Chloride Level 103 MMOL/L (98-107) Carbon Dioxide Level 19 MMOL/L (21-32) L Anion Gap 11 (5-15) Blood Urea Nitrogen 28 mg/dL (7-18) H Creatinine 2.2 MG/DL (0.55-1.30) H Estimat Glomerular Filtration Rate 36.5 mL/min (>60) Glucose Level 263 MG/DL (74-106) #H Calcium Level 8.7 MG/DL (8.5-10.1) Current Medications Medications (Trade) Dose Ordered Sig/Dragan Route PRN Reason Start Time Stop Time Status Last Admin Dose Admin Acetaminophen (Tylenol) 650 mg Q4H PRN ORAL fever 06/02/17 17:00 06/29/17 16:59 Apixaban (Eliquis) 2.5 mg BID ORAL 06/10/17 09:00 07/10/17 08:59 06/10/17 08:41 Atorvastatin Calcium (Lipitor) 80 mg BEDTIME ORAL 06/02/17 21:00 06/30/17 20:59 06/09/17 21:22 Carvedilol (Coreg) 6.25 mg EVERY 12 HOURS ORAL 06/02/17 21:00 07/02/17 20:59 06/10/17 08:42 Clonidine HCl (Catapres) 0.1 mg Q4H PRN ORAL sbp more than 160 06/02/17 17:00 07/02/17 16:59 06/06/17 16:35 Dextrose (Dextrose 50%) STAT PRN IV Hypoglycemia 06/10/17 06:00 07/10/17 05:59 Dextrose (Dextrose 50%) STAT PRN IV Hypoglycemia 06/02/17 17:00 07/02/17 16:59 Gabapentin (Neurontin) 300 mg BEDTIME ORAL 06/02/17 21:00 07/02/17 20:59 06/09/17 21:22 Heparin Sodium (Porcine) (Heparin 5000 units/ml) 5,000 units EVERY 12 HOURS SUBQ 06/09/17 21:00 07/09/17 20:59 06/10/17 08:43 Hydromorphone HCl (Dilaudid) 0.5 mg Q3H PRN IVP Pain Score 1-3 06/09/17 14:00 06/16/17 13:59 Hydromorphone HCl (Dilaudid) 1 mg Q3H PRN IVP pain score 4-6 06/09/17 14:00 06/16/17 13:59 Hydromorphone HCl (Dilaudid) 2 mg Q3H PRN IVP pain score 7-10 06/09/17 14:00 06/16/17 13:59 06/10/17 14:21 Insulin Aspart (NovoLOG) BEFORE MEALS AND HS SUBQ 06/10/17 06:30 07/10/17 06:29 06/10/17 12:14 Insulin Aspart (NovoLOG) 3 units NOVOTIAC SUBQ 06/10/17 06:30 07/10/17 06:29 06/10/17 12:12 Insulin Detemir (Levemir) 10 units BEDTIME SUBQ 06/08/17 21:00 07/08/17 20:59 06/09/17 21:29 Lansoprazole (Prevacid) 30 mg DAILY ORAL 06/03/17 09:00 06/30/17 09:44 06/10/17 08:41 Meperidine HCl (Demerol) 25 mg ONCE PRN IVP Shivering 06/09/17 13:15 06/16/17 13:14 Nifedipine (Procardia XL) 60 mg DAILY ORAL 06/03/17 09:00 06/30/17 09:44 06/10/17 08:42 Nitroglycerin (Ntg) 0.4 mg Q5M X 3 DOSES PRN SL Prn Chest Pain 06/02/17 17:00 06/29/17 16:59 Ondansetron HCl (Zofran) 4 mg Q6H PRN IVP Nausea & Vomiting 06/02/17 17:00 06/29/17 16:59 06/08/17 01:37 Ondansetron HCl (Zofran) 4 mg Q6H PRN IVP Nausea & Vomiting 06/09/17 14:00 07/09/17 13:59 Piperacillin Sod/ Tazobactam Sod 3.375 gm/Dextrose 110 ml @ 27.5 mls/hr Q8H IVPB 06/09/17 18:00 06/16/17 17:59 06/10/17 10:17 Polyethylene Glycol (Miralax) 17 gm HSPRN PRN ORAL Constipation 06/02/17 17:00 06/29/17 16:59 Sodium Chloride 1,000 ml @ 50 mls/hr Q20H IV 06/10/17 12:00 07/10/17 11:59 06/10/17 12:15 Tamsulosin HCl (Flomax) 0.4 mg Q12HR ORAL 06/02/17 21:00 06/30/17 20:59 06/10/17 08:41 Liz Guevara M.D. Jun 10, 2017 16:46
--- NOTE | 2017-06-10 17:04 | Internal Med Progress Note ---
Subjective Date of Service: Jun 10, 2017 Physician Name LacieMaryanne Attending Physician Bruno Serrato MD Current Medications Medications (Trade) Dose Ordered Sig/Dragan Route PRN Reason Start Time Stop Time Status Last Admin Dose Admin Acetaminophen (Tylenol) 650 mg Q4H PRN ORAL fever 06/02/17 17:00 06/29/17 16:59 Apixaban (Eliquis) 2.5 mg BID ORAL 06/10/17 09:00 07/10/17 08:59 06/10/17 08:41 Atorvastatin Calcium (Lipitor) 80 mg BEDTIME ORAL 06/02/17 21:00 06/30/17 20:59 06/09/17 21:22 Carvedilol (Coreg) 6.25 mg EVERY 12 HOURS ORAL 06/02/17 21:00 07/02/17 20:59 06/10/17 08:42 Clonidine HCl (Catapres) 0.1 mg Q4H PRN ORAL sbp more than 160 06/02/17 17:00 07/02/17 16:59 06/06/17 16:35 Dextrose (Dextrose 50%) STAT PRN IV Hypoglycemia 06/10/17 06:00 07/10/17 05:59 Dextrose (Dextrose 50%) STAT PRN IV Hypoglycemia 06/02/17 17:00 07/02/17 16:59 Gabapentin (Neurontin) 300 mg BEDTIME ORAL 06/02/17 21:00 07/02/17 20:59 06/09/17 21:22 Heparin Sodium (Porcine) (Heparin 5000 units/ml) 5,000 units EVERY 12 HOURS SUBQ 06/09/17 21:00 07/09/17 20:59 06/10/17 08:43 Hydromorphone HCl (Dilaudid) 0.5 mg Q3H PRN IVP Pain Score 1-3 06/09/17 14:00 06/16/17 13:59 Hydromorphone HCl (Dilaudid) 1 mg Q3H PRN IVP pain score 4-6 06/09/17 14:00 06/16/17 13:59 Hydromorphone HCl (Dilaudid) 2 mg Q3H PRN IVP pain score 7-10 06/09/17 14:00 06/16/17 13:59 06/10/17 14:21 Insulin Aspart (NovoLOG) BEFORE MEALS AND HS SUBQ 06/10/17 06:30 07/10/17 06:29 06/10/17 12:14 Insulin Aspart (NovoLOG) 3 units NOVOTIAC SUBQ 06/10/17 06:30 07/10/17 06:29 06/10/17 12:12 Insulin Detemir (Levemir) 10 units BEDTIME SUBQ 06/08/17 21:00 07/08/17 20:59 06/09/17 21:29 Lansoprazole (Prevacid) 30 mg DAILY ORAL 06/03/17 09:00 06/30/17 09:44 06/10/17 08:41 Meperidine HCl (Demerol) 25 mg ONCE PRN IVP Shivering 06/09/17 13:15 06/16/17 13:14 Nifedipine (Procardia XL) 60 mg DAILY ORAL 06/03/17 09:00 06/30/17 09:44 06/10/17 08:42 Nitroglycerin (Ntg) 0.4 mg Q5M X 3 DOSES PRN SL Prn Chest Pain 06/02/17 17:00 06/29/17 16:59 Ondansetron HCl (Zofran) 4 mg Q6H PRN IVP Nausea & Vomiting 06/02/17 17:00 06/29/17 16:59 06/08/17 01:37 Ondansetron HCl (Zofran) 4 mg Q6H PRN IVP Nausea & Vomiting 06/09/17 14:00 07/09/17 13:59 Piperacillin Sod/ Tazobactam Sod 3.375 gm/Dextrose 110 ml @ 27.5 mls/hr Q8H IVPB 06/09/17 18:00 06/16/17 17:59 06/10/17 10:17 Polyethylene Glycol (Miralax) 17 gm HSPRN PRN ORAL Constipation 06/02/17 17:00 06/29/17 16:59 Sodium Chloride 1,000 ml @ 50 mls/hr Q20H IV 06/10/17 12:00 07/10/17 11:59 06/10/17 12:15 Tamsulosin HCl (Flomax) 0.4 mg Q12HR ORAL 06/02/17 21:00 06/30/17 20:59 06/10/17 08:41 Allergies: Coded Allergies: No Known Allergies (Unverified , 04/25/17) ROS Limited/Unobtainable: No Constitutional: Reports: no symptoms HEENT: Reports: no symptoms Cardiovascular: Reports: no symptoms Respiratory: Reports: no symptoms Gastrointestinal/Abdominal: Reports: no symptoms Genitourinary: Reports: no symptoms Neurologic/Psychiatric: Reports: no symptoms Subjective 66 YO M admitted with uncontroled diabetes and BKA pain. Now osteomyelitis right BKA stump. s/P revision right BKA stump on 06/09/17.. Cover for Int Med-Dr Serrato. Objective Last Vital Signs Date Time Temp Pulse Resp B/P (MAP) Pulse Ox O2 Delivery O2 Flow Rate FiO2 06/10/17 16:00 98.6 80 19 134/63 95 Room Air 06/09/17 19:05 2.0 28 Laboratory Tests Test 06/10/17 07:48 White Blood Count 14.4 K/UL (4.8-10.8) H Red Blood Count 3.17 M/UL (4.70-6.10) L Hemoglobin 9.7 G/DL (14.2-18.0) L Hematocrit 29.4 % (42.0-52.0) L Mean Corpuscular Volume 93 FL (80-99) Mean Corpuscular Hemoglobin 30.6 PG (27.0-31.0) Mean Corpuscular Hemoglobin Concent 33.0 G/DL (32.0-36.0) Red Cell Distribution Width 15.7 % (11.6-14.8) H Platelet Count 278 K/UL (150-450) Mean Platelet Volume 7.0 FL (6.5-10.1) Neutrophils (%) (Auto) 75.6 % (45.0-75.0) H Lymphocytes (%) (Auto) 9.1 % (20.0-45.0) L Monocytes (%) (Auto) 13.6 % (1.0-10.0) H Eosinophils (%) (Auto) 0.7 % (0.0-3.0) Basophils (%) (Auto) 1.0 % (0.0-2.0) Sodium Level 133 MMOL/L (136-145) L Potassium Level 4.7 MMOL/L (3.5-5.1) Chloride Level 103 MMOL/L (98-107) Carbon Dioxide Level 19 MMOL/L (21-32) L Anion Gap 11 (5-15) Blood Urea Nitrogen 28 mg/dL (7-18) H Creatinine 2.2 MG/DL (0.55-1.30) H Estimat Glomerular Filtration Rate 36.5 mL/min (>60) Glucose Level 263 MG/DL (74-106) #H Calcium Level 8.7 MG/DL (8.5-10.1) Intake and Output 06/10/17 06/11/17 19:00 07:00 Intake Total 590 ml Output Total 250 ml Balance 340 ml Intake Oral 590 ml Output Urine Total 250 ml # Voids 1 Objective General Appearance: alert, mild distress, thin EENT: PERRL/EOMI, normal ENT inspection Neck: non-tender, normal alignment, supple Cardiovascular: normal peripheral pulses, normal rate, regular rhythm, no gallop/murmur, no JVD Respiratory/Chest: chest wall non-tender, lungs clear, normal breath sounds, no respiratory distress, no accessory muscle use Abdomen: normal bowel sounds, non tender, soft, no organomegaly, no mass Extremities: other - right BKA 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 (3) Diabetes mellitus type II, uncontrolled Assessment & Plan: Continue novolog and levemir per endocrinology. See Endocrinology consult. (4) Right BKA infection Assessment & Plan: See ID note. Continue Zosyn. Wound care. Scheduled for BKA revision vs AKA on 06/09/17-see surgery note.. (5) Syncope (6) HTN (hypertension) Assessment & Plan: Continue Procardia (7) Osteomyelitis of right tibia Assessment & Plan: Continue antibiotic per ID. S/P right BKA revision on -see surgery note. MARYANNE SMALLS Jun 10, 2017 17:04
--- NOTE | 2017-06-10 18:01 | Pulmonology Progress Note ---
Assessment/Plan Problems: (1) Syncope (2) Sepsis (3) Right BKA infection (4) HTN (hypertension) (5) Diabetes mellitus (6) Renal failure (7) BPH (benign prostatic hyperplasia) Assessment/Plan check electrolytes symptomatic treatment wound looks very good as per surgeon, iv abx symptomatic treatment sliding scale dc planning Subjective ROS Limited/Unobtainable: No Constitutional: Reports: no symptoms HEENT: Repors: no symptoms Respiratory: Reports: no symptoms Allergies: Coded Allergies: No Known Allergies (Unverified , 04/25/17) Objective Last 24 Hour Vital Signs Date Time Temp Pulse Resp B/P (MAP) Pulse Ox O2 Delivery O2 Flow Rate FiO2 06/10/17 16:00 98.6 80 19 134/63 95 Room Air 06/10/17 12:00 97.9 82 18 136/70 95 Room Air 06/10/17 08:42 80 133/68 06/10/17 08:42 80 133/68 06/10/17 08:00 98.9 89 18 148/74 95 Room Air 06/10/17 07:08 82 19 93 06/10/17 04:00 98.3 82 19 122/85 93 Room Air 06/10/17 00:49 98.3 108 18 142/81 93 Room Air 06/09/17 21:22 92 141/83 06/09/17 20:39 98.0 92 19 141/83 91 Room Air 06/09/17 19:05 78 16 Nasal Cannula 2.0 28 Intake and Output 06/10/17 06/11/17 19:00 07:00 Intake Total 590 ml Output Total 250 ml Balance 340 ml Intake Oral 590 ml Output Urine Total 250 ml # Voids 1 Objective General Appearance: WD/WN HEENT: normocephalic, mucous membranes moist Respiratory/Chest: chest wall non-tender, normal breath sounds Cardiovascular: normal peripheral pulses, normal rate Abdomen: normal bowel sounds, no organomegaly Laboratory Tests 06/10/17 07:48: White Blood Count 14.4H, Red Blood Count 3.17L, Hemoglobin 9.7L, Hematocrit 29.4L, Mean Corpuscular Volume 93, Mean Corpuscular Hemoglobin 30.6, Mean Corpuscular Hemoglobin Concent 33.0, Red Cell Distribution Width 15.7H, Platelet Count 278, Mean Platelet Volume 7.0, Neutrophils (%) (Auto) 75.6H, Lymphocytes (%) (Auto) 9.1L, Monocytes (%) (Auto) 13.6H, Eosinophils (%) (Auto) 0.7, Basophils (%) (Auto) 1.0, Sodium Level 133L, Potassium Level 4.7, Chloride Level 103, Carbon Dioxide Level 19L, Anion Gap 11, Blood Urea Nitrogen 28H, Creatinine 2.2H, Estimat Glomerular Filtration Rate 36.5, Glucose Level 263#H, Calcium Level 8.7 Current Medications Medications (Trade) Dose Ordered Sig/Dragan Route PRN Reason Start Time Stop Time Status Last Admin Dose Admin Acetaminophen (Tylenol) 650 mg Q4H PRN ORAL fever 06/02/17 17:00 06/29/17 16:59 Apixaban (Eliquis) 2.5 mg BID ORAL 06/10/17 09:00 07/10/17 08:59 06/10/17 17:28 Atorvastatin Calcium (Lipitor) 80 mg BEDTIME ORAL 06/02/17 21:00 06/30/17 20:59 06/09/17 21:22 Carvedilol (Coreg) 6.25 mg EVERY 12 HOURS ORAL 06/02/17 21:00 07/02/17 20:59 06/10/17 08:42 Clonidine HCl (Catapres) 0.1 mg Q4H PRN ORAL sbp more than 160 06/02/17 17:00 07/02/17 16:59 06/06/17 16:35 Dextrose (Dextrose 50%) STAT PRN IV Hypoglycemia 06/10/17 06:00 07/10/17 05:59 Dextrose (Dextrose 50%) STAT PRN IV Hypoglycemia 06/02/17 17:00 07/02/17 16:59 Gabapentin (Neurontin) 300 mg BEDTIME ORAL 06/02/17 21:00 07/02/17 20:59 06/09/17 21:22 Heparin Sodium (Porcine) (Heparin 5000 units/ml) 5,000 units EVERY 12 HOURS SUBQ 06/09/17 21:00 07/09/17 20:59 06/10/17 08:43 Hydromorphone HCl (Dilaudid) 0.5 mg Q3H PRN IVP Pain Score 1-3 06/09/17 14:00 06/16/17 13:59 Hydromorphone HCl (Dilaudid) 1 mg Q3H PRN IVP pain score 4-6 06/09/17 14:00 06/16/17 13:59 Hydromorphone HCl (Dilaudid) 2 mg Q3H PRN IVP pain score 7-10 06/09/17 14:00 06/16/17 13:59 06/10/17 14:21 Insulin Aspart (NovoLOG) BEFORE MEALS AND HS SUBQ 06/10/17 06:30 07/10/17 06:29 06/10/17 17:30 Insulin Aspart (NovoLOG) 3 units NOVOTIAC SUBQ 06/10/17 06:30 07/10/17 06:29 06/10/17 17:30 Insulin Detemir (Levemir) 10 units BEDTIME SUBQ 06/08/17 21:00 07/08/17 20:59 06/09/17 21:29 Lansoprazole (Prevacid) 30 mg DAILY ORAL 06/03/17 09:00 06/30/17 09:44 06/10/17 08:41 Meperidine HCl (Demerol) 25 mg ONCE PRN IVP Shivering 06/09/17 13:15 06/16/17 13:14 Nifedipine (Procardia XL) 60 mg DAILY ORAL 06/03/17 09:00 06/30/17 09:44 06/10/17 08:42 Nitroglycerin (Ntg) 0.4 mg Q5M X 3 DOSES PRN SL Prn Chest Pain 06/02/17 17:00 06/29/17 16:59 Ondansetron HCl (Zofran) 4 mg Q6H PRN IVP Nausea & Vomiting 06/02/17 17:00 06/29/17 16:59 06/08/17 01:37 Ondansetron HCl (Zofran) 4 mg Q6H PRN IVP Nausea & Vomiting 06/09/17 14:00 07/09/17 13:59 Piperacillin Sod/ Tazobactam Sod 3.375 gm/Dextrose 110 ml @ 27.5 mls/hr Q8H IVPB 06/09/17 18:00 06/16/17 17:59 06/10/17 17:36 Polyethylene Glycol (Miralax) 17 gm HSPRN PRN ORAL Constipation 06/02/17 17:00 06/29/17 16:59 Sodium Chloride 1,000 ml @ 50 mls/hr Q20H IV 06/10/17 12:00 07/10/17 11:59 06/10/17 12:15 Tamsulosin HCl (Flomax) 0.4 mg Q12HR ORAL 06/02/17 21:00 06/30/17 20:59 06/10/17 08:41 BRIAN HERNANDEZ Jun 10, 2017 18:01
--- NOTE | 2017-06-10 18:02 | Cardiac Electrophysiology PN ---
Assessment/Plan Status Narrative Mild left ventricular enlargement by 2D. Normal left ventricular systolic function and wall motion. Left ventricular ejection fraction estimated to be 55 %. Mild left ventricular hypertrophy. No evidence of pericardial fat or effusion. All other cardiac chamber sizes are within normal limits. Moderate focal aortic valve sclerosis with adequate cusp excursion. Mildly thickened mitral valve leaflets with normal excursion. Mild mitral annulus and aortic root calcification. Normal pulmonic valve structure. Normal tricuspid valve structure. IVC dilated at 2.1 cm with physiologic collapse. Assessment/Plan 1. Paroxysmal atrial fibrillation, On Coreg 6.25 bid. On Eliquis 2.5 bid 2. Hypertension, Procardia XL 60 mg daily and Coreg 6.25 bid. 3. Hyperlipidemia, on Lipitor. 4. Status post right hectl-[id number] higher level amputation 06/09/17.On IV antibiotic per ID ARU Eval? DW RN Subjective Subjective Comfortable in NAD . Had surgery yesterday. No chest pain or SOB. On IV Abx. DC planning in am. Objective Last 24 Hour Vital Signs Date Time Temp Pulse Resp B/P (MAP) Pulse Ox O2 Delivery O2 Flow Rate FiO2 06/10/17 16:00 98.6 80 19 134/63 95 Room Air 06/10/17 12:00 97.9 82 18 136/70 95 Room Air 06/10/17 08:42 80 133/68 06/10/17 08:42 80 133/68 06/10/17 08:00 98.9 89 18 148/74 95 Room Air 06/10/17 07:08 82 19 93 06/10/17 04:00 98.3 82 19 122/85 93 Room Air 06/10/17 00:49 98.3 108 18 142/81 93 Room Air 06/09/17 21:22 92 141/83 06/09/17 20:39 98.0 92 19 141/83 91 Room Air 06/09/17 19:05 78 16 Nasal Cannula 2.0 28 Intake and Output 06/10/17 06/11/17 19:00 07:00 Intake Total 590 ml Output Total 250 ml Balance 340 ml Intake Oral 590 ml Output Urine Total 250 ml # Voids 1 Laboratory Tests Test 06/10/17 07:48 White Blood Count 14.4 K/UL (4.8-10.8) H Red Blood Count 3.17 M/UL (4.70-6.10) L Hemoglobin 9.7 G/DL (14.2-18.0) L Hematocrit 29.4 % (42.0-52.0) L Mean Corpuscular Volume 93 FL (80-99) Mean Corpuscular Hemoglobin 30.6 PG (27.0-31.0) Mean Corpuscular Hemoglobin Concent 33.0 G/DL (32.0-36.0) Red Cell Distribution Width 15.7 % (11.6-14.8) H Platelet Count 278 K/UL (150-450) Mean Platelet Volume 7.0 FL (6.5-10.1) Neutrophils (%) (Auto) 75.6 % (45.0-75.0) H Lymphocytes (%) (Auto) 9.1 % (20.0-45.0) L Monocytes (%) (Auto) 13.6 % (1.0-10.0) H Eosinophils (%) (Auto) 0.7 % (0.0-3.0) Basophils (%) (Auto) 1.0 % (0.0-2.0) Sodium Level 133 MMOL/L (136-145) L Potassium Level 4.7 MMOL/L (3.5-5.1) Chloride Level 103 MMOL/L (98-107) Carbon Dioxide Level 19 MMOL/L (21-32) L Anion Gap 11 (5-15) Blood Urea Nitrogen 28 mg/dL (7-18) H Creatinine 2.2 MG/DL (0.55-1.30) H Estimat Glomerular Filtration Rate 36.5 mL/min (>60) Glucose Level 263 MG/DL (74-106) #H Calcium Level 8.7 MG/DL (8.5-10.1) Objective HEAD AND NECK: No JVD or carotid bruits. LUNGS: Clear. CARDIOVASCULAR: Shows regular S1 and S2 with no gallop. ABDOMEN: Soft. Extremities: Status post right [id number] Re-amputation MADI MAYBERRY Jun 10, 2017 18:02
--- NOTE | 2017-06-10 19:03 | General Progress Note ---
Assessment/Plan Assessment/Plan ASSESSMENT AND PLAN: # Leukocytosis 2/2 OM, s/p surgical debridement. Surgery following 1. Anemia secondary to chronic disease. Anemia workup has been reviewed, consistent with anemia of chronic disease. -->hgb goal is above 8. watch counts 2. Decreased hemoglobin and hematocrit. Rule out gastrointestinal bleed. Occult blood is negative. 3. Acute kidney injury 4. Diabetes mellitus. Continue to better control diabetes mellitus. Subjective Constitutional: Reports: no symptoms HEENT: Reports: no symptoms Cardiovascular: Reports: no symptoms Respiratory: Reports: no symptoms Gastrointestinal/Abdominal: Reports: no symptoms Genitourinary: Reports: no symptoms Neurologic/Psychiatric: Reports: no symptoms Endocrine: Reports: no symptoms Hematologic/Lymphatic: Reports: no symptoms Allergies: Coded Allergies: No Known Allergies (Unverified , 04/25/17) Subjective NAD Objective Last 24 Hour Vital Signs Date Time Temp Pulse Resp B/P (MAP) Pulse Ox O2 Delivery O2 Flow Rate FiO2 06/10/17 16:00 98.6 80 19 134/63 95 Room Air 06/10/17 12:00 97.9 82 18 136/70 95 Room Air 06/10/17 08:42 80 133/68 06/10/17 08:42 80 133/68 06/10/17 08:00 98.9 89 18 148/74 95 Room Air 06/10/17 07:08 82 19 93 06/10/17 04:00 98.3 82 19 122/85 93 Room Air 06/10/17 00:49 98.3 108 18 142/81 93 Room Air 06/09/17 21:22 92 141/83 06/09/17 20:39 98.0 92 19 141/83 91 Room Air 06/09/17 19:05 78 16 Nasal Cannula 2.0 28 Intake and Output 06/10/17 06/11/17 19:00 07:00 Intake Total 790 ml Output Total 250 ml Balance 540 ml Intake Oral 590 ml IV Total 200 ml Output Urine Total 250 ml # Voids 1 Laboratory Tests 06/10/17 07:48: White Blood Count 14.4H, Red Blood Count 3.17L, Hemoglobin 9.7L, Hematocrit 29.4L, Mean Corpuscular Volume 93, Mean Corpuscular Hemoglobin 30.6, Mean Corpuscular Hemoglobin Concent 33.0, Red Cell Distribution Width 15.7H, Platelet Count 278, Mean Platelet Volume 7.0, Neutrophils (%) (Auto) 75.6H, Lymphocytes (%) (Auto) 9.1L, Monocytes (%) (Auto) 13.6H, Eosinophils (%) (Auto) 0.7, Basophils (%) (Auto) 1.0, Sodium Level 133L, Potassium Level 4.7, Chloride Level 103, Carbon Dioxide Level 19L, Anion Gap 11, Blood Urea Nitrogen 28H, Creatinine 2.2H, Estimat Glomerular Filtration Rate 36.5, Glucose Level 263#H, Calcium Level 8.7 Height (Feet): 6 Height (Inches): 2.00 Weight (Pounds): 112 General Appearance: no apparent distress EENT: normal ENT inspection Neck: normal alignment Cardiovascular: regular rhythm Respiratory/Chest: no accessory muscle use Abdomen: no organomegaly 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
[2017-06-10 20:00] VITALS: BP 137/64
[2017-06-10] MEDS: Atorvastatin 80mg tab ORAL SCH (21:35)
[2017-06-10] MEDS: Levemir Flexpen SUBQ SCH (21:41)
[2017-06-11] VITALS (7 sets, daily range): BP systolic 130–151; BP diastolic 72–87
[2017-06-11] MEDS: HYDROmorphone 1mg/ml Carpuject IVP PRN ×3 (01:31→19:08)
[2017-06-11] MEDS: Piperacillin/Tazobactam 3.375 GM in D5W 110 ML IVPB SCH ×2 (02:25→09:54)
[2017-06-11] MEDS: NovoLOG Insulin Flexpen SUBQ SCH ×7 (06:30→21:00)
[2017-06-11 07:14] LABS: MEAN CORPUSCULAR HEMOGLOBIN 30.7 PG (27.0-31.0); MEAN CORPUSCULAR HGB CONC 33.2 G/DL (32.0-36.0); MEAN CORPUSCULAR VOLUME 93 FL (80-99); MEAN PLATELET VOLUME 6.6 FL (6.5-10.1); PLATELET COUNT 216 K/UL (150-450); RED BLOOD COUNT 2.56 M/UL (4.70-6.10); RED CELL DISTRIBUTION WIDTH 16.4 % (11.6-14.8); WHITE BLOOD COUNT 15.9 K/UL (4.8-10.8)
[2017-06-11 07:45] LABS: ANION GAP 11 (5-15); CALCIUM 8.2 MG/DL (8.5-10.1); CARBON DIOXIDE 18 MMOL/L (21-32); CHLORIDE 105 MMOL/L (98-107); CREATININE 2.3 MG/DL (0.55-1.30); GLOMERULAR FILTRATION RATE 34.7 mL/min (>60); POTASSIUM 4.8 MMOL/L (3.5-5.1); SODIUM 134 MMOL/L (136-145)
[2017-06-11] MEDS: Eliquis 2.5mg tablet ORAL SCH ×2 (07:54→17:47)
[2017-06-11] MEDS: Tamsulosin 0.4mg cap ORAL SCH ×2 (07:54→22:04)
[2017-06-11] MEDS: Carvedilol 6.25mg Tab ORAL SCH ×2 (07:55→22:08)
[2017-06-11] MEDS: Heparin 5000 units/ml inj SUBQ SCH ×2 (08:39→22:10)
--- NOTE | 2017-06-11 09:31 | General Progress Note ---
Assessment/Plan Status: stable Status Narrative cr 2.3- Hgb lower Assessment/Plan admitted for syncope Has DM OOC h/o A fib acute renal failure on CRI previous Cr 1.9 now 2.1 h/o bladder outlet obstruction) per AILYN in past Also due to DM and HTN, has 3+ Proteinuria anemia DM HTN R BKA stump wound BLE pain severe protein calorie malnutrition Urinary retention due to bladder out let Obstruction bladder outlet obstruction Plan: transfuse one unit monitor renal parameters continue IV change to isotonic solution Surgical intervention for Osteo on 06/09- post op care BS control Optimize BS and BP status Avoid nephrotoxics Flomax BID Anemia crawford DC planning Subjective ROS Limited/Unobtainable: No Allergies: Coded Allergies: No Known Allergies (Unverified , 04/25/17) Objective Last 24 Hour Vital Signs Date Time Temp Pulse Resp B/P (MAP) Pulse Ox O2 Delivery O2 Flow Rate FiO2 06/11/17 08:00 97.9 86 18 136/87 94 Room Air 06/11/17 07:55 85 140/78 06/11/17 07:55 85 140/78 06/11/17 04:36 98.3 85 20 140/78 93 Room Air 06/11/17 00:57 97.9 69 19 139/74 93 Room Air 06/11/17 00:00 97.9 89 19 139/74 93 Room Air 06/10/17 21:35 78 137/64 06/10/17 20:00 97.7 78 18 137/64 93 Room Air 06/10/17 16:00 98.6 80 19 134/63 95 Room Air 06/10/17 12:00 97.9 82 18 136/70 95 Room Air Laboratory Tests 06/11/17 05:00: White Blood Count 15.9H, Red Blood Count 2.56L, Hemoglobin 7.9L, Hematocrit 23.8L, Mean Corpuscular Volume 93, Mean Corpuscular Hemoglobin 30.7, Mean Corpuscular Hemoglobin Concent 33.2, Red Cell Distribution Width 16.4H, Platelet Count 216, Mean Platelet Volume 6.6, Neutrophils (%) (Auto) , Lymphocytes (%) (Auto) , Monocytes (%) (Auto) , Eosinophils (%) (Auto) , Basophils (%) (Auto) , Neutrophils % (Manual) [Pending], Lymphocytes % (Manual) [Pending], Platelet Estimate [Pending], Platelet Morphology [Pending], Sodium Level 134L, Potassium Level 4.8, Chloride Level 105, Carbon Dioxide Level 18L, Anion Gap 11, Blood Urea Nitrogen 30H, Creatinine 2.3H, Estimat Glomerular Filtration Rate 34.7, Glucose Level 64#L, Calcium Level 8.2L Height (Feet): 6 Height (Inches): 2.00 Weight (Pounds): 112 General Appearance: no apparent distress Respiratory/Chest: decreased breath sounds Abdomen: soft Genitourinary/Rectal: other - scrotal edema Objective no change in PE TYE TINAJERO Jun 11, 2017 09:31
[2017-06-11 09:58] LABS: ANISOCYTOSIS 1+; BAND NEUTROPHILS % (MANUAL) 0 % (0-8); BASOPHILS % (MANUAL) 0 % (0-2); EOSINOPHILS % (MANUAL) 1 % (0-3); HYPOCHROMASIA 1+; LYMPHOCYTES % (MANUAL) 13 % (20-45); NEUTROPHILS % (MANUAL) 76 % (45-75); PLATELET ESTIMATE ADEQUATE; PLATELET MORPHOLOGY NORMAL; TOTAL CELLS COUNTED 100
--- NOTE | 2017-06-11 10:43 | Infectious Diseases Prog Note ---
Assessment/Plan Assessment/Plan ASSESSMENT: The patient is a 66-year-old male with: Right BKA stump wound infection with Acute OM s/p revision 06/09 -OR findings: The right olojy-ujj-mzja amputation stump had prominent edema. The severed bone appeared healthy. The circulation appeared adequate. The posterior tibial vessels were patent as were the anterior tibial. -specimen sent for pathology, micro did not received specimen -superficial wound cx: +4 Serratia Marcecens (S. Ceftriaxone, levo/cipro, Bactrim, Zosyn), +4 E. cloace (S. Ceftriaxone, levo/Cipro, Zosyn; R bactrim); possible that these represents colonizer as wound cx was superficial and likely pathogens could still be Strep sp and MSSA. -s/p admission in [facility] in March for stump infection s/p 4 weeks of PO abx (pt unsure of abx) -06/03 ESR 116, CRP 6.1 Leukocytosis, mild- persistent- worsening now post-op vs ESBL inducible of prior isolated organisms -Bcx Neg Pyuria/Bacteriuria (assymptomatic) -u/a WBC 5-10, nit +, leuk +3; ucx >100K Serratia marcenses (S. CTX, zosy, Cipro, bactrim) NOHELIA on CKD, worsening (post-op) -renal U/s: Mild right hydronephrosis.Left kidney is normal. No left hydronephrosis. Left renal cyst is noted. Distended urinary bladder with wall thickening. There is layering debris within the urinary bladder. Cystitis cannot be excluded Hyperlipidemia. History of hypoglycemia. Hypertension. Diabetes. Atrial fibrillation. PLAN: -Noticed switched from Ceftriaxone to Zosyn on 06/09 per surgical team; will switch to Ertapenem given easier dosing regimen and for concern of possible ESBL inducibility; unfortunately Micro lab did not received OR specimen for cultures -s/p 7d Ceftriaxone 06/09 -s/p 5d IV Vanco, 4d Zosyn 06/03 -Discharge regimen: Ertapenem 1g IV daily for 6 weeks from revision on 06/09; end date 07/20/17 -weekly CBC/BMP while on IV Abx -will obtain baseline ESR and CRP prior to discharge -Trend WBC -Monitor CBC/ BMP, temperatures -wound care Discussed with RN and Dr Medellin and case aide. Subjective Allergies: Coded Allergies: No Known Allergies (Unverified , 04/25/17) Subjective afebrile VSS at RA leukocytosis worsened to 15 worsening creatinine nauseous this am Objective Vital Signs Last 24 Hour Vital Signs Date Time Temp Pulse Resp B/P (MAP) Pulse Ox O2 Delivery O2 Flow Rate FiO2 06/11/17 08:25 97.9 06/11/17 08:00 97.9 86 18 136/87 94 Room Air 06/11/17 07:55 85 140/78 06/11/17 07:55 85 140/78 06/11/17 04:36 98.3 85 20 140/78 93 Room Air 06/11/17 00:57 97.9 69 19 139/74 93 Room Air 06/11/17 00:00 97.9 89 19 139/74 93 Room Air 06/10/17 21:35 78 137/64 06/10/17 20:00 97.7 78 18 137/64 93 Room Air 06/10/17 16:00 98.6 80 19 134/63 95 Room Air 06/10/17 12:00 97.9 82 18 136/70 95 Room Air Height (Feet): 6 Height (Inches): 2.00 Weight (Pounds): 112 Objective HEENT: No pale conjunctivae. No icterus. NECK: No lymphadenopathy. CHEST: Clear. HEART: S1 and S2. ABDOMEN: Soft and nontender. EXTREMITIES: Right BKA wrapped. NEUROLOGIC: Awake and alert. reviewed Laboratory Tests Test 06/11/17 05:00 White Blood Count 15.9 K/UL (4.8-10.8) H Red Blood Count 2.56 M/UL (4.70-6.10) L Hemoglobin 7.9 G/DL (14.2-18.0) L Hematocrit 23.8 % (42.0-52.0) L Mean Corpuscular Volume 93 FL (80-99) Mean Corpuscular Hemoglobin 30.7 PG (27.0-31.0) Mean Corpuscular Hemoglobin Concent 33.2 G/DL (32.0-36.0) Red Cell Distribution Width 16.4 % (11.6-14.8) H Platelet Count 216 K/UL (150-450) Mean Platelet Volume 6.6 FL (6.5-10.1) Neutrophils (%) (Auto) % (45.0-75.0) Lymphocytes (%) (Auto) % (20.0-45.0) Monocytes (%) (Auto) % (1.0-10.0) Eosinophils (%) (Auto) % (0.0-3.0) Basophils (%) (Auto) % (0.0-2.0) Differential Total Cells Counted 100 Neutrophils % (Manual) 76 % (45-75) H Lymphocytes % (Manual) 13 % (20-45) L Monocytes % (Manual) 10 % (1-10) Eosinophils % (Manual) 1 % (0-3) Basophils % (Manual) 0 % (0-2) Band Neutrophils 0 % (0-8) Platelet Estimate Adequate Platelet Morphology Normal Hypochromasia 1+ Anisocytosis 1+ Sodium Level 134 MMOL/L (136-145) L Potassium Level 4.8 MMOL/L (3.5-5.1) Chloride Level 105 MMOL/L (98-107) Carbon Dioxide Level 18 MMOL/L (21-32) L Anion Gap 11 (5-15) Blood Urea Nitrogen 30 mg/dL (7-18) H Creatinine 2.3 MG/DL (0.55-1.30) H Estimat Glomerular Filtration Rate 34.7 mL/min (>60) Glucose Level 64 MG/DL (74-106) #L Calcium Level 8.2 MG/DL (8.5-10.1) L Current Medications Medications (Trade) Dose Ordered Sig/Dragan Route PRN Reason Start Time Stop Time Status Last Admin Dose Admin Acetaminophen (Tylenol) 650 mg Q4H PRN ORAL fever 06/02/17 17:00 06/29/17 16:59 Apixaban (Eliquis) 2.5 mg BID ORAL 06/10/17 09:00 07/10/17 08:59 06/11/17 07:54 Atorvastatin Calcium (Lipitor) 80 mg BEDTIME ORAL 06/02/17 21:00 06/30/17 20:59 06/10/17 21:35 Carvedilol (Coreg) 6.25 mg EVERY 12 HOURS ORAL 06/02/17 21:00 07/02/17 20:59 06/11/17 07:55 Clonidine HCl (Catapres) 0.1 mg Q4H PRN ORAL sbp more than 160 06/02/17 17:00 07/02/17 16:59 06/06/17 16:35 Dextrose (Dextrose 50%) STAT PRN IV Hypoglycemia 06/10/17 06:00 07/10/17 05:59 Dextrose (Dextrose 50%) STAT PRN IV Hypoglycemia 06/02/17 17:00 07/02/17 16:59 Gabapentin (Neurontin) 300 mg BEDTIME ORAL 06/02/17 21:00 07/02/17 20:59 06/10/17 21:34 Heparin Sodium (Porcine) (Heparin 5000 units/ml) 5,000 units EVERY 12 HOURS SUBQ 06/09/17 21:00 07/09/17 20:59 06/11/17 08:39 Hydromorphone HCl (Dilaudid) 0.5 mg Q3H PRN IVP Pain Score 1-3 06/09/17 14:00 06/16/17 13:59 06/11/17 07:57 Hydromorphone HCl (Dilaudid) 1 mg Q3H PRN IVP pain score 4-6 06/09/17 14:00 06/16/17 13:59 06/11/17 01:31 Hydromorphone HCl (Dilaudid) 2 mg Q3H PRN IVP pain score 7-10 06/09/17 14:00 06/16/17 13:59 06/10/17 14:21 Insulin Aspart (NovoLOG) BEFORE MEALS AND HS SUBQ 06/10/17 06:30 07/10/17 06:29 06/10/17 21:00 Insulin Aspart (NovoLOG) 3 units NOVOTIAC SUBQ 06/10/17 06:30 07/10/17 06:29 06/10/17 17:30 Insulin Detemir (Levemir) 10 units BEDTIME SUBQ 06/08/17 21:00 07/08/17 20:59 06/10/17 21:41 Lansoprazole (Prevacid) 30 mg DAILY ORAL 06/03/17 09:00 06/30/17 09:44 06/11/17 07:55 Meperidine HCl (Demerol) 25 mg ONCE PRN IVP Shivering 06/09/17 13:15 06/16/17 13:14 Nifedipine (Procardia XL) 60 mg DAILY ORAL 06/03/17 09:00 06/30/17 09:44 06/11/17 07:55 Nitroglycerin (Ntg) 0.4 mg Q5M X 3 DOSES PRN SL Prn Chest Pain 06/02/17 17:00 06/29/17 16:59 Ondansetron HCl (Zofran) 4 mg Q6H PRN IVP Nausea & Vomiting 06/02/17 17:00 06/29/17 16:59 06/08/17 01:37 Ondansetron HCl (Zofran) 4 mg Q6H PRN IVP Nausea & Vomiting 06/09/17 14:00 07/09/17 13:59 Piperacillin Sod/ Tazobactam Sod 3.375 gm/Dextrose 110 ml @ 27.5 mls/hr Q8H IVPB 06/09/17 18:00 06/16/17 17:59 06/11/17 09:54 Polyethylene Glycol (Miralax) 17 gm HSPRN PRN ORAL Constipation 06/02/17 17:00 06/29/17 16:59 Sodium Chloride 1,000 ml @ 50 mls/hr Q20H IV 06/10/17 12:00 07/10/17 11:59 06/11/17 09:54 Tamsulosin HCl (Flomax) 0.4 mg Q12HR ORAL 06/02/17 21:00 06/30/17 20:59 06/11/17 07:54 Liz Guevara M.D. Jun 11, 2017 10:43
--- NOTE | 2017-06-11 11:47 | General Progress Note ---
Progress Note Progress Note Surgery: doing well. no acute events. pain from stump. no n/v/f/c. worsening leukocytosis today. exam stable. Abx changed. -will continue to monitor surgical site. no active signs of infection noted at this time -Abx as per Artur Cardona Jun 11, 2017 11:47
--- NOTE | 2017-06-11 11:57 | Wound Nurse Progress Note ---
Wound RN Progress Note Wound Consult No further recommendation to s/p revision BKA of Right LE. follow up with attending . NAHUM BARBOSA Jun 11, 2017 11:57
--- NOTE | 2017-06-11 13:21 | Internal Med Progress Note ---
Subjective Date of Service: Jun 11, 2017 Physician Name Smalls,Maryanne Attending Physician Bruno Serrato MD Current Medications Medications (Trade) Dose Ordered Sig/Dragan Route PRN Reason Start Time Stop Time Status Last Admin Dose Admin Acetaminophen (Tylenol) 650 mg Q4H PRN ORAL fever 06/02/17 17:00 06/29/17 16:59 Apixaban (Eliquis) 2.5 mg BID ORAL 06/10/17 09:00 07/10/17 08:59 06/11/17 07:54 Atorvastatin Calcium (Lipitor) 80 mg BEDTIME ORAL 06/02/17 21:00 06/30/17 20:59 06/10/17 21:35 Carvedilol (Coreg) 6.25 mg EVERY 12 HOURS ORAL 06/02/17 21:00 07/02/17 20:59 06/11/17 07:55 Clonidine HCl (Catapres) 0.1 mg Q4H PRN ORAL sbp more than 160 06/02/17 17:00 07/02/17 16:59 06/06/17 16:35 Dextrose (Dextrose 50%) STAT PRN IV Hypoglycemia 06/10/17 06:00 07/10/17 05:59 Ertapenem 1 gm/ Sodium Chloride 55 ml @ 110 mls/hr Q24H IVPB 06/11/17 14:00 06/16/17 13:59 Gabapentin (Neurontin) 300 mg BEDTIME ORAL 06/02/17 21:00 07/02/17 20:59 06/10/17 21:34 Heparin Sodium (Porcine) (Heparin 5000 units/ml) 5,000 units EVERY 12 HOURS SUBQ 06/09/17 21:00 07/09/17 20:59 06/11/17 08:39 Hydromorphone HCl (Dilaudid) 0.5 mg Q3H PRN IVP Pain Score 1-3 06/09/17 14:00 06/16/17 13:59 06/11/17 07:57 Hydromorphone HCl (Dilaudid) 1 mg Q3H PRN IVP pain score 4-6 06/09/17 14:00 06/16/17 13:59 06/11/17 11:56 Hydromorphone HCl (Dilaudid) 2 mg Q3H PRN IVP pain score 7-10 06/09/17 14:00 06/16/17 13:59 06/10/17 14:21 Insulin Aspart (NovoLOG) BEFORE MEALS AND HS SUBQ 06/10/17 06:30 07/10/17 06:29 06/11/17 12:54 Insulin Aspart (NovoLOG) 3 units NOVOTIAC SUBQ 06/10/17 06:30 07/10/17 06:29 06/11/17 12:52 Insulin Detemir (Levemir) 10 units BEDTIME SUBQ 06/08/17 21:00 07/08/17 20:59 06/10/17 21:41 Lansoprazole (Prevacid) 30 mg DAILY ORAL 06/03/17 09:00 06/30/17 09:44 06/11/17 07:55 Meperidine HCl (Demerol) 25 mg ONCE PRN IVP Shivering 06/09/17 13:15 06/16/17 13:14 Nifedipine (Procardia XL) 60 mg DAILY ORAL 06/03/17 09:00 06/30/17 09:44 06/11/17 07:55 Nitroglycerin (Ntg) 0.4 mg Q5M X 3 DOSES PRN SL Prn Chest Pain 06/02/17 17:00 06/29/17 16:59 Ondansetron HCl (Zofran) 4 mg Q6H PRN IVP Nausea & Vomiting 06/09/17 14:00 07/09/17 13:59 Polyethylene Glycol (Miralax) 17 gm HSPRN PRN ORAL Constipation 06/02/17 17:00 06/29/17 16:59 Sodium Chloride 1,000 ml @ 50 mls/hr Q20H IV 06/10/17 12:00 07/10/17 11:59 06/11/17 09:54 Tamsulosin HCl (Flomax) 0.4 mg Q12HR ORAL 06/02/17 21:00 06/30/17 20:59 06/11/17 07:54 Allergies: Coded Allergies: No Known Allergies (Unverified , 04/25/17) ROS Limited/Unobtainable: No Constitutional: Reports: no symptoms HEENT: Reports: no symptoms Cardiovascular: Reports: no symptoms Respiratory: Reports: no symptoms Gastrointestinal/Abdominal: Reports: no symptoms Genitourinary: Reports: no symptoms Neurologic/Psychiatric: Reports: no symptoms Subjective 66 YO M admitted with uncontroled diabetes and BKA pain. Now osteomyelitis right BKA stump. s/P revision right BKA stump on 06/09/17.. Cover for Int Med-Dr Serrato. Await PICC Objective Last Vital Signs Date Time Temp Pulse Resp B/P (MAP) Pulse Ox O2 Delivery O2 Flow Rate FiO2 06/11/17 12:20 99.2 06/11/17 12:00 88 18 130/77 97 Room Air 06/09/17 19:05 2.0 28 Laboratory Tests Test 06/11/17 05:00 White Blood Count 15.9 K/UL (4.8-10.8) H Red Blood Count 2.56 M/UL (4.70-6.10) L Hemoglobin 7.9 G/DL (14.2-18.0) L Hematocrit 23.8 % (42.0-52.0) L Mean Corpuscular Volume 93 FL (80-99) Mean Corpuscular Hemoglobin 30.7 PG (27.0-31.0) Mean Corpuscular Hemoglobin Concent 33.2 G/DL (32.0-36.0) Red Cell Distribution Width 16.4 % (11.6-14.8) H Platelet Count 216 K/UL (150-450) Mean Platelet Volume 6.6 FL (6.5-10.1) Neutrophils (%) (Auto) % (45.0-75.0) Lymphocytes (%) (Auto) % (20.0-45.0) Monocytes (%) (Auto) % (1.0-10.0) Eosinophils (%) (Auto) % (0.0-3.0) Basophils (%) (Auto) % (0.0-2.0) Differential Total Cells Counted 100 Neutrophils % (Manual) 76 % (45-75) H Lymphocytes % (Manual) 13 % (20-45) L Monocytes % (Manual) 10 % (1-10) Eosinophils % (Manual) 1 % (0-3) Basophils % (Manual) 0 % (0-2) Band Neutrophils 0 % (0-8) Platelet Estimate Adequate Platelet Morphology Normal Hypochromasia 1+ Anisocytosis 1+ Erythrocyte Sedimentation Rate Pending Sodium Level 134 MMOL/L (136-145) L Potassium Level 4.8 MMOL/L (3.5-5.1) Chloride Level 105 MMOL/L (98-107) Carbon Dioxide Level 18 MMOL/L (21-32) L Anion Gap 11 (5-15) Blood Urea Nitrogen 30 mg/dL (7-18) H Creatinine 2.3 MG/DL (0.55-1.30) H Estimat Glomerular Filtration Rate 34.7 mL/min (>60) Glucose Level 64 MG/DL (74-106) #L Calcium Level 8.2 MG/DL (8.5-10.1) L C-Reactive Protein, Quantitative 14.6 mg/dL (0.00-0.90) H Objective General Appearance: alert, mild distress, thin EENT: PERRL/EOMI, normal ENT inspection Neck: non-tender, normal alignment, supple Cardiovascular: normal peripheral pulses, normal rate, regular rhythm, no gallop/murmur, no JVD Respiratory/Chest: chest wall non-tender, lungs clear, normal breath sounds, no respiratory distress, no accessory muscle use Abdomen: normal bowel sounds, non tender, soft, no organomegaly, no mass Extremities: other - right BKA Neurologic: stock tracer II-XII grossly normal, no motor/sensory deficits Skin: normal pigmentation, warm/dry Assessment/Plan Problem List: (1) Hypercholesteremia Assessment & Plan: continue lipitor (2) Atrial fibrillation Assessment & Plan: see cardiology note. (3) Diabetes mellitus type II, uncontrolled Assessment & Plan: Continue novolog and levemir per endocrinology. See Endocrinology consult. (4) Right BKA infection Assessment & Plan: See ID note. Continue Zosyn. Wound care. Scheduled for BKA revision vs AKA on 06/09/17-see surgery note.. (5) Syncope (6) HTN (hypertension) Assessment & Plan: Continue Procardia (7) Osteomyelitis of right tibia Assessment & Plan: Continue IV antibiotic for 6 weeks per ID. S/P right BKA revision on 06/09/17-see surgery note. Status: stable Assessment/Plan Await PICC MARYANNE SMALLS Jun 11, 2017 13:21
--- NOTE | 2017-06-11 13:23 | Cardiac Electrophysiology PN ---
Assessment/Plan Status Narrative Mild left ventricular enlargement by 2D. Normal left ventricular systolic function and wall motion. Left ventricular ejection fraction estimated to be 55 %. Mild left ventricular hypertrophy. No evidence of pericardial fat or effusion. All other cardiac chamber sizes are within normal limits. Moderate focal aortic valve sclerosis with adequate cusp excursion. Mildly thickened mitral valve leaflets with normal excursion. Mild mitral annulus and aortic root calcification. Normal pulmonic valve structure. Normal tricuspid valve structure. IVC dilated at 2.1 cm with physiologic collapse. Assessment/Plan 1. Paroxysmal atrial fibrillation, On Coreg 6.25 bid. On Eliquis 2.5 bid 2. Hypertension, Procardia XL 60 mg daily and Coreg 6.25 bid. Add Lasix 40 iv daily 3. Hyperlipidemia, on Lipitor. 4. Status post right [id number] higher level amputation 06/09/17.On IV antibiotic per ID ARU Eval? BRUNO RN Subjective Subjective Comfortable in NAD . Scrotums are now swollen. No chest pain or SOB. On IV Abx. Objective Last 24 Hour Vital Signs Date Time Temp Pulse Resp B/P (MAP) Pulse Ox O2 Delivery O2 Flow Rate FiO2 06/11/17 12:20 99.2 06/11/17 12:00 99.2 88 18 130/77 97 Room Air 06/11/17 08:25 97.9 06/11/17 08:00 97.9 86 18 136/87 94 Room Air 06/11/17 07:55 85 140/78 06/11/17 07:55 85 140/78 06/11/17 04:36 98.3 85 20 140/78 93 Room Air 06/11/17 00:57 97.9 69 19 139/74 93 Room Air 06/11/17 00:00 97.9 89 19 139/74 93 Room Air 06/10/17 21:35 78 137/64 06/10/17 20:00 97.7 78 18 137/64 93 Room Air 06/10/17 16:00 98.6 80 19 134/63 95 Room Air Laboratory Tests Test 06/11/17 05:00 White Blood Count 15.9 K/UL (4.8-10.8) H Red Blood Count 2.56 M/UL (4.70-6.10) L Hemoglobin 7.9 G/DL (14.2-18.0) L Hematocrit 23.8 % (42.0-52.0) L Mean Corpuscular Volume 93 FL (80-99) Mean Corpuscular Hemoglobin 30.7 PG (27.0-31.0) Mean Corpuscular Hemoglobin Concent 33.2 G/DL (32.0-36.0) Red Cell Distribution Width 16.4 % (11.6-14.8) H Platelet Count 216 K/UL (150-450) Mean Platelet Volume 6.6 FL (6.5-10.1) Neutrophils (%) (Auto) % (45.0-75.0) Lymphocytes (%) (Auto) % (20.0-45.0) Monocytes (%) (Auto) % (1.0-10.0) Eosinophils (%) (Auto) % (0.0-3.0) Basophils (%) (Auto) % (0.0-2.0) Differential Total Cells Counted 100 Neutrophils % (Manual) 76 % (45-75) H Lymphocytes % (Manual) 13 % (20-45) L Monocytes % (Manual) 10 % (1-10) Eosinophils % (Manual) 1 % (0-3) Basophils % (Manual) 0 % (0-2) Band Neutrophils 0 % (0-8) Platelet Estimate Adequate Platelet Morphology Normal Hypochromasia 1+ Anisocytosis 1+ Erythrocyte Sedimentation Rate Pending Sodium Level 134 MMOL/L (136-145) L Potassium Level 4.8 MMOL/L (3.5-5.1) Chloride Level 105 MMOL/L (98-107) Carbon Dioxide Level 18 MMOL/L (21-32) L Anion Gap 11 (5-15) Blood Urea Nitrogen 30 mg/dL (7-18) H Creatinine 2.3 MG/DL (0.55-1.30) H Estimat Glomerular Filtration Rate 34.7 mL/min (>60) Glucose Level 64 MG/DL (74-106) #L Calcium Level 8.2 MG/DL (8.5-10.1) L C-Reactive Protein, Quantitative 14.6 mg/dL (0.00-0.90) H Objective HEAD AND NECK: No JVD or carotid bruits. LUNGS: Clear. CARDIOVASCULAR: Shows regular S1 and S2 with no gallop. ABDOMEN: Soft. Swollen scrotum Extremities: Status post right [id number] Re-amputation MADI MAYBERRY Jun 11, 2017 13:23
[2017-06-11] MEDS ORDERED: Lidocaine 1% Plain 30 ml INJ ONE (15:00)
[2017-06-11] MEDS ORDERED: Heparin 2000 units/Ns 1000ml IV ONE (15:00)
--- NOTE | 2017-06-11 15:24 | Diagnostic Imaging Report ---
Indications: Needs long-term IV access Technique: Ultrasound confirms patent compressible left basilic vein. Total sterile technique, including sterile probe cover and sterile gel, hat, mask,, sterile gown, large sterile drape, and preparation with 2% chlorhexidine utilized. Local anesthesia with 1% lidocaine. Under real-time ultrasound guidance, puncture basilic vein using 21-gauge needle, documented and archived, passage 0.018 guidewire under direct fluoroscopy, which was used to determine appropriate catheter length, exchange for 5 Urdu peel-away sheath. 5 Urdu Bard dual-lumen power PICC cut to cm. It was inserted through the peel-away sheath. Peel-away sheath and guidewire removed. Catheter fixed to the skin. Both catheter ports aspirated and flushed. Patient tolerated procedure well, without immediate complication. Digital radiograph documents satisfactory catheter tip position, at the cavoatrial junction. Total fluoroscopy time 0.2 minutes. Total dose area product 4.5 dGycm2 Impression: Successful placement of left arm PICC under sonographic and fluoroscopic guidance, as described above.
[2017-06-11] MEDS: Ertapenem 1 GM in NS 55 ML IVPB SCH (15:28)
--- NOTE | 2017-06-11 17:40 | General Progress Note ---
Assessment/Plan Assessment/Plan ASSESSMENT AND PLAN: # Leukocytosis 2/2 OM, s/p surgical debridement. Surgery following. on antibiotics 1. Anemia secondary to chronic disease. Anemia workup has been reviewed, consistent with anemia of chronic disease. -->hgb goal is above 8. watch counts -- HH fell, receiving blood transfusion 2. Decreased hemoglobin and hematocrit. Rule out gastrointestinal bleed. Occult blood is negative. 3. Acute kidney injury 4. Diabetes mellitus. Continue to better control diabetes mellitus. Subjective Constitutional: Reports: malaise, weakness Cardiovascular: Reports: no symptoms Respiratory: Reports: no symptoms Genitourinary: Reports: no symptoms Endocrine: Reports: no symptoms Hematologic/Lymphatic: Reports: anemia Allergies: Coded Allergies: No Known Allergies (Unverified , 04/25/17) Subjective pain at surgical site Objective Last 24 Hour Vital Signs Date Time Temp Pulse Resp B/P (MAP) Pulse Ox O2 Delivery O2 Flow Rate FiO2 06/11/17 16:27 97.7 06/11/17 16:00 97.7 88 20 151/72 98 Room Air 06/11/17 12:20 99.2 06/11/17 12:00 99.2 88 18 130/77 97 Room Air 06/11/17 08:25 97.9 06/11/17 08:00 97.9 86 18 136/87 94 Room Air 06/11/17 07:55 85 140/78 06/11/17 07:55 85 140/78 06/11/17 04:36 98.3 85 20 140/78 93 Room Air 06/11/17 00:57 97.9 69 19 139/74 93 Room Air 06/11/17 00:00 97.9 89 19 139/74 93 Room Air 06/10/17 21:35 78 137/64 06/10/17 20:00 97.7 78 18 137/64 93 Room Air Laboratory Tests 06/11/17 05:00: White Blood Count 15.9H, Red Blood Count 2.56L, Hemoglobin 7.9L, Hematocrit 23.8L, Mean Corpuscular Volume 93, Mean Corpuscular Hemoglobin 30.7, Mean Corpuscular Hemoglobin Concent 33.2, Red Cell Distribution Width 16.4H, Platelet Count 216, Mean Platelet Volume 6.6, Neutrophils (%) (Auto) , Lymphocytes (%) (Auto) , Monocytes (%) (Auto) , Eosinophils (%) (Auto) , Basophils (%) (Auto) , Differential Total Cells Counted 100, Neutrophils % ( Manual) 76H, Lymphocytes % (Manual) 13L, Monocytes % (Manual) 10, Eosinophils % (Manual) 1, Basophils % (Manual) 0, Band Neutrophils 0, Platelet Estimate Adequate, Platelet Morphology Normal, Hypochromasia 1+, Anisocytosis 1+, Sodium Level 134L, Potassium Level 4.8, Chloride Level 105, Carbon Dioxide Level 18L, Anion Gap 11, Blood Urea Nitrogen 30H, Creatinine 2.3H, Estimat Glomerular Filtration Rate 34.7, Glucose Level 64#L, Calcium Level 8.2L, C-Reactive Protein , Quantitative 14.6H 06/11/17 11:40: Erythrocyte Sedimentation Rate 133H Height (Feet): 6 Height (Inches): 2.00 Weight (Pounds): 112 General Appearance: lethargic, mild distress EENT: TMs normal Cardiovascular: no gallop/murmur Pelvis: no masses Dino Acosta Jun 11, 2017 17:40
--- NOTE | 2017-06-11 18:35 | Pulmonology Progress Note ---
Assessment/Plan Problems: (1) Syncope (2) Sepsis (3) Right BKA infection (4) HTN (hypertension) (5) Diabetes mellitus (6) Renal failure (7) BPH (benign prostatic hyperplasia) Assessment/Plan check electrolytes symptomatic treatment wound looks very good as per surgeon, iv abx symptomatic treatment sliding scale dc planning Subjective Allergies: Coded Allergies: No Known Allergies (Unverified , 04/25/17) Objective Last 24 Hour Vital Signs Date Time Temp Pulse Resp B/P (MAP) Pulse Ox O2 Delivery O2 Flow Rate FiO2 06/11/17 16:27 97.7 06/11/17 16:00 97.7 88 20 151/72 98 Room Air 06/11/17 12:20 99.2 06/11/17 12:00 99.2 88 18 130/77 97 Room Air 06/11/17 08:25 97.9 06/11/17 08:00 97.9 86 18 136/87 94 Room Air 06/11/17 07:55 85 140/78 06/11/17 07:55 85 140/78 06/11/17 04:36 98.3 85 20 140/78 93 Room Air 06/11/17 00:57 97.9 69 19 139/74 93 Room Air 06/11/17 00:00 97.9 89 19 139/74 93 Room Air 06/10/17 21:35 78 137/64 06/10/17 20:00 97.7 78 18 137/64 93 Room Air Objective General Appearance: WD/WN HEENT: normocephalic, mucous membranes moist Respiratory/Chest: chest wall non-tender, normal breath sounds Cardiovascular: normal peripheral pulses, normal rate Abdomen: normal bowel sounds, no organomegaly Laboratory Tests 06/11/17 05:00: White Blood Count 15.9H, Red Blood Count 2.56L, Hemoglobin 7.9L, Hematocrit 23.8L, Mean Corpuscular Volume 93, Mean Corpuscular Hemoglobin 30.7, Mean Corpuscular Hemoglobin Concent 33.2, Red Cell Distribution Width 16.4H, Platelet Count 216, Mean Platelet Volume 6.6, Neutrophils (%) (Auto) , Lymphocytes (%) (Auto) , Monocytes (%) (Auto) , Eosinophils (%) (Auto) , Basophils (%) (Auto) , Differential Total Cells Counted 100, Neutrophils % ( Manual) 76H, Lymphocytes % (Manual) 13L, Monocytes % (Manual) 10, Eosinophils % (Manual) 1, Basophils % (Manual) 0, Band Neutrophils 0, Platelet Estimate Adequate, Platelet Morphology Normal, Hypochromasia 1+, Anisocytosis 1+, Sodium Level 134L, Potassium Level 4.8, Chloride Level 105, Carbon Dioxide Level 18L, Anion Gap 11, Blood Urea Nitrogen 30H, Creatinine 2.3H, Estimat Glomerular Filtration Rate 34.7, Glucose Level 64#L, Calcium Level 8.2L, C-Reactive Protein , Quantitative 14.6H 06/11/17 11:40: Erythrocyte Sedimentation Rate 133H Current Medications Medications (Trade) Dose Ordered Sig/Dragan Route PRN Reason Start Time Stop Time Status Last Admin Dose Admin Acetaminophen (Tylenol) 650 mg Q4H PRN ORAL fever 06/02/17 17:00 06/29/17 16:59 06/11/17 15:28 Apixaban (Eliquis) 2.5 mg BID ORAL 06/10/17 09:00 07/10/17 08:59 06/11/17 17:47 Atorvastatin Calcium (Lipitor) 80 mg BEDTIME ORAL 06/02/17 21:00 06/30/17 20:59 06/10/17 21:35 Carvedilol (Coreg) 6.25 mg EVERY 12 HOURS ORAL 06/02/17 21:00 07/02/17 20:59 06/11/17 07:55 Clonidine HCl (Catapres) 0.1 mg Q4H PRN ORAL sbp more than 160 06/02/17 17:00 07/02/17 16:59 06/06/17 16:35 Dextrose (Dextrose 50%) STAT PRN IV Hypoglycemia 06/10/17 06:00 07/10/17 05:59 Ertapenem 1 gm/ Sodium Chloride 55 ml @ 110 mls/hr Q24H IVPB 06/11/17 14:00 06/16/17 13:59 06/11/17 15:28 Furosemide (Lasix) 40 mg EVERY 12 HOURS IV 06/11/17 21:00 07/11/17 20:59 Gabapentin (Neurontin) 300 mg BEDTIME ORAL 06/02/17 21:00 07/02/17 20:59 06/10/17 21:34 Heparin Sodium (Porcine) (Heparin 5000 units/ml) 5,000 units EVERY 12 HOURS SUBQ 06/09/17 21:00 07/09/17 20:59 06/11/17 08:39 Hydromorphone HCl (Dilaudid) 0.5 mg Q3H PRN IVP Pain Score 1-3 06/09/17 14:00 06/16/17 13:59 06/11/17 07:57 Hydromorphone HCl (Dilaudid) 1 mg Q3H PRN IVP pain score 4-6 06/09/17 14:00 06/16/17 13:59 06/11/17 11:56 Hydromorphone HCl (Dilaudid) 2 mg Q3H PRN IVP pain score 7-10 06/09/17 14:00 06/16/17 13:59 06/10/17 14:21 Insulin Aspart (NovoLOG) BEFORE MEALS AND HS SUBQ 06/10/17 06:30 07/10/17 06:29 06/11/17 12:54 Insulin Aspart (NovoLOG) 3 units NOVOTIAC SUBQ 06/10/17 06:30 07/10/17 06:29 06/11/17 12:52 Insulin Detemir (Levemir) 10 units BEDTIME SUBQ 06/08/17 21:00 07/08/17 20:59 06/10/17 21:41 Lansoprazole (Prevacid) 30 mg DAILY ORAL 06/03/17 09:00 06/30/17 09:44 06/11/17 07:55 Meperidine HCl (Demerol) 25 mg ONCE PRN IVP Shivering 06/09/17 13:15 06/16/17 13:14 Nifedipine (Procardia XL) 60 mg DAILY ORAL 06/03/17 09:00 06/30/17 09:44 06/11/17 07:55 Nitroglycerin (Ntg) 0.4 mg Q5M X 3 DOSES PRN SL Prn Chest Pain 06/02/17 17:00 06/29/17 16:59 Ondansetron HCl (Zofran) 4 mg Q6H PRN IVP Nausea & Vomiting 06/09/17 14:00 07/09/17 13:59 06/11/17 17:39 Polyethylene Glycol (Miralax) 17 gm HSPRN PRN ORAL Constipation 06/02/17 17:00 06/29/17 16:59 Sodium Chloride 1,000 ml @ 50 mls/hr Q20H IV 06/10/17 12:00 07/10/17 11:59 06/11/17 09:54 Tamsulosin HCl (Flomax) 0.4 mg Q12HR ORAL 06/02/17 21:00 06/30/17 20:59 06/11/17 07:54 BRIAN HERNANDEZ Jun 11, 2017 18:35
[2017-06-11] MEDS: Atorvastatin 80mg tab ORAL SCH (22:07)
[2017-06-11] MEDS: Levemir Flexpen SUBQ SCH (22:11)
[2017-06-12 00:48] VITALS: BP 153/83
[2017-06-12] MEDS: HYDROmorphone 1mg/ml Carpuject IVP PRN ×3 (01:14→12:19)
[2017-06-12 04:00] VITALS: BP 143/84
[2017-06-12] MEDS: NovoLOG Insulin Flexpen SUBQ SCH ×4 (06:30→11:50)
[2017-06-12 08:00] VITALS: BP 134/70
[2017-06-12] MEDS: Tamsulosin 0.4mg cap ORAL SCH (08:08)
[2017-06-12] MEDS: Carvedilol 6.25mg Tab ORAL SCH (08:08)
[2017-06-12] MEDS: Eliquis 2.5mg tablet ORAL SCH (08:17)
[2017-06-12] MEDS: Heparin 5000 units/ml inj SUBQ SCH (08:23)
--- NOTE | 2017-06-12 10:48 | Pulmonology Progress Note ---
Assessment/Plan Assessment/Plan ASSESSMENT Sepsis R BKA stump infection Acute OM of R tibia stump s/p 06/09 revision of right BKA stump NOHELIA on CKD DM OOC PAF anemia of chronic disease anemia requiring blood transfusion severe protein calorie malnutrition proteinuria BPH HTN Hyperlipidemia PLAN OF CARE MS floor abx ID follows PICC line placed will need 6 wks of abx from the date of revision 06/09-07/20 with weekly labs monitoring Surgery follows wound care wound healing nicely Leukocytosis , labs pending for today pain management DVT GI prophylaxis IVF monitor renal parameters, lytes, avoid nephrotoxic, Nephro follows BP management ( BB, CCB, Lasix) cardio follows On BB and a/coagulation with Eliquis continue statin BS management with short and long acting insulin and SS prn, endo follows, avoid metformin 2 to NOHELIA monitor HH s/p blood transfusion anemia w/up consistent with anemia of chronic disease heme follows goal to keep Hgb above 8 , s/p blood transfusion dietary follows on Cirilo and Glucerna, monitor diet tolerance placement secured at SNF dc today on IV abx to SNF for wound care and IV abx after reviewing labs weekly CBC BMP while on Ertapenem Subjective Allergies: Coded Allergies: No Known Allergies (Unverified , 04/25/17) Subjective labs pending for today, no fevers feeling better , no pain PICC placed yesterday Objective Last 24 Hour Vital Signs Date Time Temp Pulse Resp B/P (MAP) Pulse Ox O2 Delivery O2 Flow Rate FiO2 06/12/17 08:17 89 143/84 06/12/17 08:08 89 143/84 06/12/17 08:00 98.4 74 19 134/70 96 Room Air 06/12/17 04:00 98.1 89 20 143/84 92 Room Air 06/12/17 00:48 98.2 82 20 153/83 93 Room Air 06/11/17 22:08 88 148/79 06/11/17 20:00 98.2 88 20 148/79 92 Room Air 06/11/17 16:27 97.7 06/11/17 16:00 97.7 88 20 151/72 98 Room Air 06/11/17 12:20 99.2 06/11/17 12:00 99.2 88 18 130/77 97 Room Air General Appearance: no acute distress HEENT: normocephalic, atraumatic, anicteric, mucous membranes moist, PERRL Respiratory/Chest: lungs clear, no respiratory distress, no accessory muscle use Cardiovascular: normal rate, regular rhythm, no JVD Abdomen: normal bowel sounds, soft, non tender, non distended Extremities: other - R BKA with dressing and JAYESH wrap C/D/I Neurologic/Psychiatric: abnormal gait, alert, oriented x 3, responsive Laboratory Tests 06/11/17 11:40: Erythrocyte Sedimentation Rate 133H Current Medications Medications (Trade) Dose Ordered Sig/Dragan Route PRN Reason Start Time Stop Time Status Last Admin Dose Admin Acetaminophen (Tylenol) 650 mg Q4H PRN ORAL fever 06/02/17 17:00 06/29/17 16:59 06/11/17 15:28 Apixaban (Eliquis) 2.5 mg BID ORAL 06/10/17 09:00 07/10/17 08:59 06/12/17 08:17 Atorvastatin Calcium (Lipitor) 80 mg BEDTIME ORAL 06/02/17 21:00 06/30/17 20:59 06/11/17 22:07 Carvedilol (Coreg) 6.25 mg EVERY 12 HOURS ORAL 06/02/17 21:00 07/02/17 20:59 06/12/17 08:08 Clonidine HCl (Catapres) 0.1 mg Q4H PRN ORAL sbp more than 160 06/02/17 17:00 07/02/17 16:59 06/06/17 16:35 Dextrose (Dextrose 50%) STAT PRN IV Hypoglycemia 06/10/17 06:00 07/10/17 05:59 Ertapenem 1 gm/ Sodium Chloride 55 ml @ 110 mls/hr Q24H IVPB 06/11/17 14:00 06/16/17 13:59 06/11/17 15:28 Furosemide (Lasix) 40 mg EVERY 12 HOURS IV 06/11/17 21:00 07/11/17 20:59 06/12/17 08:07 Gabapentin (Neurontin) 300 mg BEDTIME ORAL 06/02/17 21:00 07/02/17 20:59 06/11/17 22:07 Heparin Sodium (Porcine) (Heparin 5000 units/ml) 5,000 units EVERY 12 HOURS SUBQ 06/09/17 21:00 07/09/17 20:59 06/12/17 08:23 Hydromorphone HCl (Dilaudid) 0.5 mg Q3H PRN IVP Pain Score 1-3 06/09/17 14:00 06/16/17 13:59 06/11/17 07:57 Hydromorphone HCl (Dilaudid) 1 mg Q3H PRN IVP pain score 4-6 06/09/17 14:00 06/16/17 13:59 06/12/17 08:07 Hydromorphone HCl (Dilaudid) 2 mg Q3H PRN IVP pain score 7-10 06/09/17 14:00 06/16/17 13:59 06/10/17 14:21 Insulin Aspart (NovoLOG) BEFORE MEALS AND HS SUBQ 06/10/17 06:30 07/10/17 06:29 06/11/17 12:54 Insulin Aspart (NovoLOG) 3 units NOVOTIAC SUBQ 06/10/17 06:30 07/10/17 06:29 06/11/17 12:52 Insulin Detemir (Levemir) 10 units BEDTIME SUBQ 06/08/17 21:00 07/08/17 20:59 06/11/17 22:11 Lansoprazole (Prevacid) 30 mg DAILY ORAL 06/03/17 09:00 06/30/17 09:44 06/12/17 08:08 Meperidine HCl (Demerol) 25 mg ONCE PRN IVP Shivering 06/09/17 13:15 06/16/17 13:14 Nifedipine (Procardia XL) 60 mg DAILY ORAL 06/03/17 09:00 06/30/17 09:44 06/12/17 08:17 Nitroglycerin (Ntg) 0.4 mg Q5M X 3 DOSES PRN SL Prn Chest Pain 06/02/17 17:00 06/29/17 16:59 Ondansetron HCl (Zofran) 4 mg Q6H PRN IVP Nausea & Vomiting 06/09/17 14:00 07/09/17 13:59 06/11/17 17:39 Polyethylene Glycol (Miralax) 17 gm HSPRN PRN ORAL Constipation 06/02/17 17:00 06/29/17 16:59 Sodium Chloride 1,000 ml @ 50 mls/hr Q20H IV 06/10/17 12:00 07/10/17 11:59 06/12/17 04:00 Tamsulosin HCl (Flomax) 0.4 mg Q12HR ORAL 06/02/17 21:00 06/30/17 20:59 06/12/17 08:08 Tr ([facility])Ellie NP Jun 12, 2017 10:48
[2017-06-12] MEDS ORDERED: ACETAMINOPHEN325 M1 ORAL (10:53)
[2017-06-12] MEDS ORDERED: PROCARDIA XL30 MG ORAL (10:53)
[2017-06-12] MEDS ORDERED: LEVEMIR FL100 UNIT/1 SUBQ (10:53)
[2017-06-12] MEDS ORDERED: LANSOPRAZOLE30 MG ORAL (10:53)
[2017-06-12] MEDS ORDERED: MIRALAX17 G2 ORAL (10:53)
[2017-06-12] MEDS ORDERED: NOVOLOG100 UNITS1 SUBQ ×2 (10:53)
[2017-06-12] MEDS ORDERED: FUROSEMIDE40 MG ORAL (10:54)
[2017-06-12] MEDS ORDERED: INVANZ1 GM IVPB (10:55)
[2017-06-12 11:00] LABS: EOSINOPHILS % (AUTO) 0.9 % (0.0-3.0); LYMPHOCYTES % (AUTO) 9.2 % (20.0-45.0); MEAN CORPUSCULAR HEMOGLOBIN 29.4 PG (27.0-31.0); MEAN CORPUSCULAR HGB CONC 32.3 G/DL (32.0-36.0); MEAN CORPUSCULAR VOLUME 91 FL (80-99); MEAN PLATELET VOLUME 7.7 FL (6.5-10.1); NEUTROPHILS % (AUTO) 77.9 % (45.0-75.0); PLATELET COUNT 252 K/UL (150-450); RED BLOOD COUNT 3.35 M/UL (4.70-6.10); WHITE BLOOD COUNT 15.9 K/UL (4.8-10.8)
[2017-06-12 11:15] LABS: ALANINE AMINOTRANSFERASE 20 U/L (12-78); ALBUMIN/GLOBULIN RATIO 0.4 (1.0-2.7); ANION GAP 9 (5-15); ASPARTATE AMINO TRANSFERASE 18 U/L (15-37); CALCIUM 8.6 MG/DL (8.5-10.1); CARBON DIOXIDE 21 MMOL/L (21-32); CHLORIDE 103 MMOL/L (98-107); CREATININE 2.6 MG/DL (0.55-1.30); CRP QUANT > 12.0 mg/dL (0.00-0.90); GLOMERULAR FILTRATION RATE 30.1 mL/min (>60); PHOSPHORUS 4.6 MG/DL (2.5-4.9); POTASSIUM 4.5 MMOL/L (3.5-5.1); SODIUM 133 MMOL/L (136-145); TOTAL PROTEIN 6.8 G/DL (6.4-8.2); URIC ACID 6.6 MG/DL (2.6-7.2)
[2017-06-12] MEDS ORDERED: NORCO 5-325 TA1 EACH ORAL (11:40)
[2017-06-12 12:00] VITALS: BP 133/68
--- NOTE | 2017-06-12 12:40 | General Progress Note ---
Progress Note Progress Note Surgery: no acute events. doing well. comfortable. pain from stump incision but improving. no n/v/f/c. dressings removed and wound evaluated. incision c/d/i, no drainage. no signs of infection. healing well. sutures intact afebrile, HD stable, still with leukocytosis. continue with daily prn dressings changes. okay to leave open to air in 2-3 days. Abx as per ID Artur De La Torre Jun 12, 2017 12:40
[2017-06-12] MEDS ORDERED: Pneumococcal Vaccine 25mcg/0.5ml IM ONE (14:00)
[2017-06-12] MEDS: Ertapenem 1 GM in NS 55 ML IVPB SCH (14:00)
--- NOTE | 2017-06-12 14:20 | General Progress Note ---
Assessment/Plan Status: unchanged Status Narrative Cr marty 2.6 Assessment/Plan admitted for syncope Has DM OOC h/o A fib acute renal failure on CRI previous Cr 1.9 now 2.1 h/o bladder outlet obstruction) per AILYN in past Also due to DM and HTN, has 3+ Proteinuria anemia DM HTN R BKA stump wound BLE pain severe protein calorie malnutrition Urinary retention due to bladder out let Obstruction bladder outlet obstruction Plan: down on Lasix transfuse one unit monitor renal parameters continue IV change to isotonic solution Surgical intervention for Osteo on 06/09- post op care BS control Optimize BS and BP status Avoid nephrotoxics Flomax BID Anemia crawford DC planning Subjective ROS Limited/Unobtainable: No Constitutional: Reports: malaise Allergies: Coded Allergies: No Known Allergies (Unverified , 04/25/17) Objective Last 24 Hour Vital Signs Date Time Temp Pulse Resp B/P (MAP) Pulse Ox O2 Delivery O2 Flow Rate FiO2 06/12/17 12:45 98.1 06/12/17 12:00 98.5 66 18 133/68 100 Room Air 06/12/17 08:17 89 143/84 06/12/17 08:08 89 143/84 06/12/17 08:00 98.4 74 19 134/70 96 Room Air 06/12/17 04:00 98.1 89 20 143/84 92 Room Air 06/12/17 00:48 98.2 82 20 153/83 93 Room Air 06/11/17 22:08 88 148/79 06/11/17 20:00 98.2 88 20 148/79 92 Room Air 06/11/17 16:27 97.7 06/11/17 16:00 97.7 88 20 151/72 98 Room Air Intake and Output 06/12/17 06/13/17 19:00 07:00 Intake Total 540 ml Balance 540 ml Intake Oral 540 ml # Voids 1 # Bowel Movements 2 Laboratory Tests 06/12/17 10:30: White Blood Count 15.9H, Red Blood Count 3.35L, Hemoglobin 9.9L, Hematocrit 30.5L, Mean Corpuscular Volume 91, Mean Corpuscular Hemoglobin 29.4, Mean Corpuscular Hemoglobin Concent 32.3, Red Cell Distribution Width 16.0H, Platelet Count 252, Mean Platelet Volume 7.7, Neutrophils (%) (Auto) 77.9H, Lymphocytes (%) (Auto) 9.2L, Monocytes (%) (Auto) 11.0H, Eosinophils (%) (Auto) 0.9, Basophils (%) (Auto) 1.0, Sodium Level 133L, Potassium Level 4.5, Chloride Level 103, Carbon Dioxide Level 21, Anion Gap 9, Blood Urea Nitrogen 32H, Creatinine 2.6H, Estimat Glomerular Filtration Rate 30.1, Glucose Level 88, Uric Acid 6.6, Calcium Level 8.6, Phosphorus Level 4.6, Magnesium Level 2.0, Total Bilirubin 0.3, Aspartate Amino Transf (AST/SGOT) 18, Alanine Aminotransferase (ALT/SGPT) 20, Alkaline Phosphatase 96, C-Reactive Protein, Quantitative > 12.0H, Pro-B-Type Natriuretic Peptide 5216H, Total Protein 6.8, Albumin 1.9L, Globulin 4.9, Albumin/Globulin Ratio 0.4L Height (Feet): 6 Height (Inches): 2.00 Weight (Pounds): 112 General Appearance: no apparent distress Objective no change in PE TYE TINAJERO Jun 12, 2017 14:20
[2017-06-12] MEDS ORDERED: Tubing Blood Filter IV ONE (14:59)
[2017-06-12] MEDS ORDERED: Tubing IV Secondary IV ONE (14:59)
[2017-06-12] MEDS ORDERED: NS 275ml ONE (14:59)
--- NOTE | 2017-06-12 17:07 | Internal Med Progress Note ---
Subjective Date of Service: Jun 12, 2017 Physician Name Felton Smalls Attending Physician Bruno Serrato MD Allergies: Coded Allergies: No Known Allergies (Unverified , 04/25/17) ROS Limited/Unobtainable: No Constitutional: Reports: no symptoms HEENT: Reports: no symptoms Cardiovascular: Reports: no symptoms Respiratory: Reports: no symptoms Gastrointestinal/Abdominal: Reports: no symptoms Genitourinary: Reports: no symptoms Neurologic/Psychiatric: Reports: no symptoms Subjective 66 YO M admitted with uncontroled diabetes and BKA pain. Now osteomyelitis right BKA stump. s/P revision right BKA stump on 06/09/17.. Cover for Int Med-Dr Serrato. Await D/C to [facility] Objective Last Vital Signs Date Time Temp Pulse Resp B/P (MAP) Pulse Ox O2 Delivery O2 Flow Rate FiO2 06/12/17 12:45 98.1 06/12/17 12:00 66 18 133/68 100 Room Air 06/09/17 19:05 2.0 28 Laboratory Tests Test 06/12/17 10:30 White Blood Count 15.9 K/UL (4.8-10.8) H Red Blood Count 3.35 M/UL (4.70-6.10) L Hemoglobin 9.9 G/DL (14.2-18.0) L Hematocrit 30.5 % (42.0-52.0) L Mean Corpuscular Volume 91 FL (80-99) Mean Corpuscular Hemoglobin 29.4 PG (27.0-31.0) Mean Corpuscular Hemoglobin Concent 32.3 G/DL (32.0-36.0) Red Cell Distribution Width 16.0 % (11.6-14.8) H Platelet Count 252 K/UL (150-450) Mean Platelet Volume 7.7 FL (6.5-10.1) Neutrophils (%) (Auto) 77.9 % (45.0-75.0) H Lymphocytes (%) (Auto) 9.2 % (20.0-45.0) L Monocytes (%) (Auto) 11.0 % (1.0-10.0) H Eosinophils (%) (Auto) 0.9 % (0.0-3.0) Basophils (%) (Auto) 1.0 % (0.0-2.0) Sodium Level 133 MMOL/L (136-145) L Potassium Level 4.5 MMOL/L (3.5-5.1) Chloride Level 103 MMOL/L (98-107) Carbon Dioxide Level 21 MMOL/L (21-32) Anion Gap 9 (5-15) Blood Urea Nitrogen 32 mg/dL (7-18) H Creatinine 2.6 MG/DL (0.55-1.30) H Estimat Glomerular Filtration Rate 30.1 mL/min (>60) Glucose Level 88 MG/DL (74-106) Uric Acid 6.6 MG/DL (2.6-7.2) Calcium Level 8.6 MG/DL (8.5-10.1) Phosphorus Level 4.6 MG/DL (2.5-4.9) Magnesium Level 2.0 MG/DL (1.8-2.4) Total Bilirubin 0.3 MG/DL (0.2-1.0) Aspartate Amino Transf (AST/SGOT) 18 U/L (15-37) Alanine Aminotransferase (ALT/SGPT) 20 U/L (12-78) Alkaline Phosphatase 96 U/L (46-116) C-Reactive Protein, Quantitative > 12.0 mg/dL (0.00-0.90) H Pro-B-Type Natriuretic Peptide 5216 (0-125) H Total Protein 6.8 G/DL (6.4-8.2) Albumin 1.9 G/DL (3.4-5.0) L Globulin 4.9 g/dL Albumin/Globulin Ratio 0.4 (1.0-2.7) L Intake and Output 06/12/17 06/13/17 19:00 07:00 Intake Total 540 ml Balance 540 ml Intake Oral 540 ml # Voids 1 # Bowel Movements 2 Objective General Appearance: alert, mild distress, thin EENT: PERRL/EOMI, normal ENT inspection Neck: non-tender, normal alignment, supple Cardiovascular: normal peripheral pulses, normal rate, regular rhythm, no gallop/murmur, no JVD Respiratory/Chest: chest wall non-tender, lungs clear, normal breath sounds, no respiratory distress, no accessory muscle use Abdomen: normal bowel sounds, non tender, soft, no organomegaly, no mass Extremities: other - right BKA Neurologic: stonehand II-XII grossly normal, no motor/sensory deficits Skin: normal pigmentation, warm/dry Assessment/Plan Problem List: (1) Hypercholesteremia Assessment & Plan: continue lipitor (2) Atrial fibrillation Assessment & Plan: see cardiology note. (3) Diabetes mellitus type II, uncontrolled Assessment & Plan: Continue novolog and levemir per endocrinology. See Endocrinology consult. (4) Right BKA infection Assessment & Plan: See ID note. Continue Zosyn. Wound care. Scheduled for BKA revision vs AKA on 06/09/17-see surgery note.. (5) Syncope (6) HTN (hypertension) Assessment & Plan: Continue Procardia (7) Osteomyelitis of right tibia Assessment & Plan: Continue IV antibiotic for 6 weeks per ID. S/P right BKA revision on 06/09/17-see surgery note. Assessment/Plan D/C to [facility] care home Fac today FELTON SMALLS Jun 12, 2017 17:07
--- NOTE | 2017-06-12 17:24 | General Progress Note ---
Assessment/Plan Assessment/Plan ASSESSMENT AND PLAN: # Leukocytosis 2/2 OM, s/p surgical debridement. Surgery following. on antibiotics 1. Anemia secondary to chronic disease. Anemia workup has been reviewed, consistent with anemia of chronic disease. -->hgb goal is above 8. watch counts -- HH better 2. Decreased hemoglobin and hematocrit. Rule out gastrointestinal bleed. Occult blood is negative. 3. Acute kidney injury 4. Diabetes mellitus. Continue to better control diabetes mellitus. Subjective Allergies: Coded Allergies: No Known Allergies (Unverified , 04/25/17) All Systems: reviewed and negative except above Subjective feeling better Objective Last 24 Hour Vital Signs Date Time Temp Pulse Resp B/P (MAP) Pulse Ox O2 Delivery O2 Flow Rate FiO2 06/12/17 12:45 98.1 06/12/17 12:00 98.5 66 18 133/68 100 Room Air 06/12/17 08:17 89 143/84 06/12/17 08:08 89 143/84 06/12/17 08:00 98.4 74 19 134/70 96 Room Air 06/12/17 04:00 98.1 89 20 143/84 92 Room Air 06/12/17 00:48 98.2 82 20 153/83 93 Room Air 06/11/17 22:08 88 148/79 06/11/17 20:00 98.2 88 20 148/79 92 Room Air Intake and Output 06/12/17 06/13/17 19:00 07:00 Intake Total 540 ml Balance 540 ml Intake Oral 540 ml # Voids 1 # Bowel Movements 2 Laboratory Tests 06/12/17 10:30: White Blood Count 15.9H, Red Blood Count 3.35L, Hemoglobin 9.9L, Hematocrit 30.5L, Mean Corpuscular Volume 91, Mean Corpuscular Hemoglobin 29.4, Mean Corpuscular Hemoglobin Concent 32.3, Red Cell Distribution Width 16.0H, Platelet Count 252, Mean Platelet Volume 7.7, Neutrophils (%) (Auto) 77.9H, Lymphocytes (%) (Auto) 9.2L, Monocytes (%) (Auto) 11.0H, Eosinophils (%) (Auto) 0.9, Basophils (%) (Auto) 1.0, Sodium Level 133L, Potassium Level 4.5, Chloride Level 103, Carbon Dioxide Level 21, Anion Gap 9, Blood Urea Nitrogen 32H, Creatinine 2.6H, Estimat Glomerular Filtration Rate 30.1, Glucose Level 88, Uric Acid 6.6, Calcium Level 8.6, Phosphorus Level 4.6, Magnesium Level 2.0, Total Bilirubin 0.3, Aspartate Amino Transf (AST/SGOT) 18, Alanine Aminotransferase (ALT/SGPT) 20, Alkaline Phosphatase 96, C-Reactive Protein, Quantitative > 12.0H, Pro-B-Type Natriuretic Peptide 5216H, Total Protein 6.8, Albumin 1.9L, Globulin 4.9, Albumin/Globulin Ratio 0.4L Height (Feet): 6 Height (Inches): 2.00 Weight (Pounds): 112 General Appearance: no apparent distress EENT: normal ENT inspection Neck: normal inspection Cardiovascular: regular rhythm Respiratory/Chest: no accessory muscle use Neurologic: normal mood/affect Skin: normal pigmentation Dino Acosta Jun 12, 2017 17:24
--- NOTE | 2017-06-13 17:10 | Discharge Summary ---
Discharge Summary Hospital Course Date of Admission May 30, 2017 at 21:40 Date of Discharge Jun 12, 2017 at 15:00 Admitting Diagnosis syncope, hyperglycemia HPI Dario Tavarez is a 66 year old male who was admitted on May 30, 2017 at 21: 40 for Syncope, Hyperglycemia Hospital Course [id number] Discharge Discharge Disposition Patient was discharged to SNF/Subacute Facility(03) Discharge Diagnoses: Radha Boyd NP Jun 13, 2017 17:10
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
--- NOTE | 2017-06-22 17:45 | Cardiology Report ---
APPROVED REPORT EKG Measurement Heart [id number] Normal sinus rhythm Biatrial enlargement Abnormal ECG
== END 2017-06-12 15:00 | DRG 853 ==
LOC: EMR 21:18 → UNDOADMIN 21:40 → 2E 21:40 → EDBEDREQ 21:46 → 3E 06-02 15:40
PROC: 0QBJ0ZZ Excision of Right Fibula, Open Approach (ICD-10-PCS; principal; 2017-06-09 11:30)
PROC: 0QBG0ZZ Excision of Right Tibia, Open Approach (ICD-10-PCS; principal; 2017-06-09 11:30)
PROC: 02HV33Z Insertion of Infusion Device into Superior Vena Cava, Percutaneous Approach (ICD-10-PCS; 2017-06-11)
PROC: B518ZZA Fluoroscopy of Superior Vena Cava, Guidance (ICD-10-PCS; 2017-06-11)
DX: A41.9 Sepsis, unspecified organism (principal); E43 Unspecified severe protein-calorie malnutrition; N17.9 Acute kidney failure, unspecified; T87.43 Infection of amputation stump, right lower extremity; E10.22 Type 1 diabetes mellitus with diabetic chronic kidney disease; I48.0 Paroxysmal atrial fibrillation; M86.161 Other acute osteomyelitis, right tibia and fibula; Z68.1 Body mass index [BMI] 19.9 or less, adult; N13.8 Other obstructive and reflux uropathy; R64 Cachexia; I12.9 Hypertensive chronic kidney disease with stage 1 through stage 4 chronic kidney disease, or unspecified chronic kidney disease; E10.65 Type 1 diabetes mellitus with hyperglycemia; N18.9 Chronic kidney disease, unspecified; D64.9 Anemia, unspecified; N13.9 Obstructive and reflux uropathy, unspecified; I73.9 Peripheral vascular disease, unspecified; R55 Syncope and collapse; F17.210 Nicotine dependence, cigarettes, uncomplicated; E78.00 Pure hypercholesterolemia, unspecified; Z68.20 Body mass index [BMI] 20.0-20.9, adult; N40.1 Benign prostatic hyperplasia with lower urinary tract symptoms; R33.8 Other retention of urine; Z23 Encounter for immunization
CPT/HCPCS: 36415; 36569; 36600; 71010; 76775; 76937; 80048; 80053; 80061; 80076; 80202; 81001; 82009; 82378; 82550; 82553; 82607; 82728; 82746; 82803; 82962; 83036; 83540; 83550; 83605; 83615; 83735; 83880; 84100; 84300; 84443; 84484; 84550; 85007; 85025; 85044; 85060; 85610; 85651; 85730; 86140; 86850; 86900; 86901; 86920; 87040; 87070; 87086; 87181; 87205; 89050; 90630; 90732; 93005; 93925; 94003; 94150; 94664; 94760; 99285; J1815; J2250; J2405; S5561

== ENCOUNTER 2017-07-22 18:33 | Inpatient (IN) | payer MEDICARE, MEDICAID ==
[~2017-07-22] VITALS: Ht 188 cm; Wt 74.4 kg
[~2017-07-22 18:33] MED LIST changes: +ACETAMINOPHEN325 M1 ORAL; +FUROSEMIDE40 MG ORAL; +INVANZ1 GM IVPB; +LANSOPRAZOLE30 MG ORAL; +LEVEMIR FL100 UNIT/1 SUBQ; +MIRALAX17 G2 ORAL; +NORCO 5-325 TA1 EACH ORAL; +NOVOLOG100 UNITS1 SUBQ; +PROCARDIA XL30 MG ORAL
[2017-07-22 19:12] VITALS: BP 172/98
[2017-07-22] MEDS ORDERED: Sodium Chloride 500ML 500 ML IV ONE (19:19)
[2017-07-22 19:54] LABS: BASOPHILS % (AUTO) 1.7 % (0.0-2.0); LYMPHOCYTES % (AUTO) 12.4 % (20.0-45.0); MEAN CORPUSCULAR HEMOGLOBIN 28.4 PG (27.0-31.0); MEAN CORPUSCULAR HGB CONC 30.2 G/DL (32.0-36.0); MEAN CORPUSCULAR VOLUME 94 FL (80-99); MEAN PLATELET VOLUME 6.8 FL (6.5-10.1); MONOCYTES % (AUTO) 11.6 % (1.0-10.0); NEUTROPHILS % (AUTO) 73.3 % (45.0-75.0); PLATELET COUNT 171 K/UL (150-450); RED BLOOD COUNT 3.08 M/UL (4.70-6.10); RED CELL DISTRIBUTION WIDTH 18.7 % (11.6-14.8); WHITE BLOOD COUNT 8.9 K/UL (4.8-10.8)
[2017-07-22 20:12] LABS: ANION GAP 10 mmol/L (5-15); CALCIUM 9.2 MG/DL (8.5-10.1); CARBON DIOXIDE 24 MMOL/L (21-32); CHLORIDE 106 MMOL/L (98-107); CREATININE 2.5 MG/DL (0.55-1.30); GLOMERULAR FILTRATION RATE 31.5 mL/min (>60); POTASSIUM 5.2 MMOL/L (3.5-5.1); SODIUM 139 MMOL/L (136-145)
[2017-07-22 20:24] LABS: ALANINE AMINOTRANSFERASE 93 U/L (12-78); ALBUMIN/GLOBULIN RATIO 0.8 (1.0-2.7); ASPARTATE AMINO TRANSFERASE 35 U/L (15-37); CKMB 3.2 NG/ML (0.0-3.6); TOTAL PROTEIN 7.5 G/DL (6.4-8.2)
[2017-07-22] MEDS ORDERED: ACETAMINOPHEN325 M1 ORAL (20:44)
[2017-07-22] MEDS ORDERED: TYLENOL EXTRA500 MG ORAL (20:46)
[2017-07-22] MEDS ORDERED: FUROSEMIDE20 M1 ORAL (20:50)
[2017-07-22] MEDS ORDERED: DUONEB 0.5-3(2.53 ML HHN (20:55)
[2017-07-22] MEDS ORDERED: MULTIVITAMINS1 EAC8 ORAL (20:56)
[2017-07-22] MEDS ORDERED: PROCARDIA XL30 MG ORAL (20:56)
[2017-07-22] MEDS ORDERED: METAMUCIL660 GM PO (20:58)
[2017-07-22] MEDS ORDERED: OMEPRAZOLE20 M2 ORAL (20:59)
[2017-07-22 21:12] VITALS: BP 169/83
[2017-07-22] MEDS ORDERED: Ipratropium 0.02% Inh Soln 2.5ml UD ONE (21:44)
[2017-07-22] MEDS ORDERED: Albuterol ud Inhalation ONE (21:44)
[2017-07-22] MEDS ORDERED: Albuterol ud Inhalation HHN ONE (21:45)
[2017-07-22] MEDS ORDERED: Ipratropium 0.02% Inh Soln 2.5ml UD HHN ONE (21:45)
[2017-07-22 21:53] LABS: ABG ALLEN TEST POSITIVE; ABG BASE EXCESS -4.9; ABG PCO2 34.9 mmHg (35.0-45.0)
[2017-07-22] MEDS ORDERED: Albuterol/Ipratropium 3ml neb HHN PRN (22:00)
[2017-07-22] MEDS ORDERED: Miralax 17gm pkt ORAL PRN (22:00)
--- NOTE | 2017-07-22 22:34 | Emergency Room Report ---
History of Present Illness General Chief Complaint: Dyspnea/Respdistress Source: Patient Present Illness HPI 66-year-old male presents ED complaining of shortness of breath. Started earlier today. Per EMS patient was wheezing. Patient denies history of asthma. Denies fevers or chills. Denies cough. Denies chest pain. Patient took retirement. No other aggravating relieving factors. Denies any other associated symptoms Allergies: Coded Allergies: No Known Allergies (Unverified , 04/25/17) Patient History Past Medical History: DM, HTN Pertinent Family History: none Social History: Denies: smoking, alcohol use, drug use Immunizations: UTD Reviewed Nursing Documentation: PMH: Agreed, PSxH: Agreed Nursing Documentation-PMH Hx Cardiac Problems: Yes Hx Hypertension: Yes Hx Diabetes: Yes Hx Cancer: No Hx Gastrointestinal Problems: Yes Hx Neurological Problems: No Review of Systems All Other Systems: negative except mentioned in HPI Physical Exam Vital Signs Date Time Temp Pulse Resp B/P (MAP) Pulse Ox O2 Delivery O2 Flow Rate FiO2 07/22/17 18:33 98.4 75 18 172/98 95 Simple Mask 4.0 07/22/17 19:12 98 Sp02 EP Interpretation: reviewed, normal General Appearance: no apparent distress, alert, GCS 15, non-toxic Head: normocephalic, atraumatic Eyes: bilateral eye normal inspection, bilateral eye PERRL ENT: hearing grossly normal, normal pharynx, no angioedema, normal voice Neck: full range of motion, supple/symm/no masses Respiratory: chest non-tender, speaking full sentences, wheezing Cardiovascular #1: regular rate, rhythm, no edema Cardiovascular #2: 2+ carotid (R), 2+ carotid (L), 2+ radial (R), 2+ radial (L) , 2+ dorsalis pedis (R), 2+ dorsalis pedis (L) Gastrointestinal: normal bowel sounds, non tender, soft, non-distended, no guarding, no rebound Rectal: deferred Genitourinary: normal inspection, no CVA tenderness Musculoskeletal: back normal Neurologic: alert, oriented x3, responsive, motor strength/tone normal, sensory intact, speech normal Psychiatric: judgement/insight normal, memory normal, mood/affect normal, no suicidal/homicidal ideation Reflexes: 3+ bicep (R), 3+ bicep (L), 3+ tricep (R), 3+ tricep (L), 3+ knee (R) , 3+ knee (L) Skin: normal color, no rash, warm/dry, well hydrated Lymphatic: no adenopathy Medical Decision Making Diagnostic Impression: Primary Impression: CHF exacerbation Qualified Codes: I50.9 - Heart failure, unspecified Additional Impressions: Hyperkalemia, diminished renal excretion Renal insufficiency Respiratory distress Pneumonia Qualified Codes: J18.1 - Lobar pneumonia, unspecified organism ER Course Hospital Course 66-year-old male presents ED complaining of shortness of breath, wheezing Differential diagnoses include: MN/unstable angina, contusion, muscle strain, PTX, rib fracture Clinical course Patient placed on stretcher. on cardiac technologist. After initial history and physical I ordered labs, EKG, chest x-ray, nebs labs reviewed- no leukocytosis, hemoglobin/hematocrit stable, creatinine elevated, troponins negative, BNP elevated EKG - NSR, no acute ischemic changes interpreted by me Chest x-ray- pneumonia, cardiomegaly, pulmonary congestion Antibiotics given. Case discussed with Dr. Serrato and he agreed to accept the patient to his service for further care and support I. I feel this is a highly complex case requiring extensive working including EKG/Rhythm strip, Xray/CT/US, Blood/urine lab work, repeat exams while in ED, and administration of strong opiates/narcotics for pain control, admission to hospital or close patient follow up. Diagnosis - CHF exacerbation, hyperkalemia, renal insufficiency, respiratory distress, pneumonia admitted to telemetry in serious condition Labs Test 07/22/17 19:30 07/22/17 21:40 White Blood Count 8.9 K/UL (4.8-10.8) Red Blood Count 3.08 M/UL (4.70-6.10) Hemoglobin 8.8 G/DL (14.2-18.0) Hematocrit 29.0 % (42.0-52.0) Mean Corpuscular Volume 94 FL (80-99) Mean Corpuscular Hemoglobin 28.4 PG (27.0-31.0) Mean Corpuscular Hemoglobin Concent 30.2 G/DL (32.0-36.0) Red Cell Distribution Width 18.7 % (11.6-14.8) Platelet Count 171 K/UL (150-450) Mean Platelet Volume 6.8 FL (6.5-10.1) Neutrophils (%) (Auto) 73.3 % (45.0-75.0) Lymphocytes (%) (Auto) 12.4 % (20.0-45.0) Monocytes (%) (Auto) 11.6 % (1.0-10.0) Eosinophils (%) (Auto) 1.0 % (0.0-3.0) Basophils (%) (Auto) 1.7 % (0.0-2.0) Sodium Level 139 MMOL/L (136-145) Potassium Level 5.2 MMOL/L (3.5-5.1) Chloride Level 106 MMOL/L (98-107) Carbon Dioxide Level 24 MMOL/L (21-32) Anion Gap 10 mmol/L (5-15) Blood Urea Nitrogen 57 mg/dL (7-18) Creatinine 2.5 MG/DL (0.55-1.30) Estimat Glomerular Filtration Rate 31.5 mL/min (>60) Glucose Level 88 MG/DL (74-106) Calcium Level 9.2 MG/DL (8.5-10.1) Total Bilirubin 0.4 MG/DL (0.2-1.0) Aspartate Amino Transf (AST/SGOT) 35 U/L (15-37) Alanine Aminotransferase (ALT/SGPT) 93 U/L (12-78) Alkaline Phosphatase 172 U/L (46-116) Creatine Kinase MB 3.2 NG/ML (0.0-3.6) Troponin I 0.028 ng/mL (0.000-0.056) Pro-B-Type Natriuretic Peptide 3722 pg/mL (0-125) Total Protein 7.5 G/DL (6.4-8.2) Albumin 3.4 G/DL (3.4-5.0) Globulin 4.1 g/dL Albumin/Globulin Ratio 0.8 (1.0-2.7) Arterial Blood pH 7.370 (7.350-7.450) Arterial Blood Partial Pressure CO2 34.9 mmHg (35.0-45.0) Arterial Blood Partial Pressure O2 57.0 mmHg (75.0-100.0) Arterial Blood HCO3 19.7 mmol/L (22.0-26.0) Arterial Blood Oxygen Saturation 87.2 % (92.0-98.0) Arterial Blood Base Excess -4.9 Carlos A Test Positive EKG Diagnostic Results Rate: normal Rhythm: NSR ST Segments: no acute changes ASA given to the pt in ED: No Rhythm Strip Diag. Results EP Interpretation: yes Rhythm: NSR, no PVC's, no ectopy Chest X-Ray Diagnostic Results Chest X-Ray Diagnostic Results : Chest X-Ray Ordered: Yes # of Views/Limited/Complete: 1 View Indication: Shortness of Breath EP Interpretation: Yes Interpretation: no pneumothorax, no acute cardiopulmonary disease, other - RLL infiltrate Impression: Other - pneumonia Electronically Signed by: Electronically signed by Nabor Knox MD Last Vital Signs Date Time Temp Pulse Resp B/P (MAP) Pulse Ox O2 Delivery O2 Flow Rate FiO2 07/22/17 21:56 87 18 94 Nasal Cannula 2.0 28 07/22/17 21:12 169/83 07/22/17 19:12 98.4 Status: improved Disposition: ADMITTED INPATIENT Condition: Serious Referrals: Bruno Serrato MD (PCP) NABOR KNOX M.D. Jul 22, 2017 22:34
[2017-07-22 22:36] LABS: APPEARANCE,URINE CLEAR; KETONES,URINE NEGATIVE (NEGATIVE); LEUKOCYTE ESTERASE ,URINE NEGATIVE (NEGATIVE); NITRITE,URINE NEGATIVE (NEGATIVE); PH,URINE 5 (4.5-8.0); PROTEIN,URINE 3+ (NEGATIVE); UROBILINOGEN,URINE NORMAL MG/DL (0.0-1.0)
[2017-07-22 22:52] LABS: RBC,URINE 0-2 /HPF (0 - 0); WBC,URINE 0-2 /HPF (0 - 0)
[2017-07-22 23:12] VITALS: BP 169/72
[2017-07-23] VITALS (8 sets, daily range): BP systolic 127–160; BP diastolic 68–98
[2017-07-23 00:02] LABS: PATH BLOOD SMEAR/OMC SENT TO PATHOLOGIST
[2017-07-23 00:04] LABS: INR 1.1 (0.9-1.1); PROTHROMBIN TIME 11.2 SEC (9.30-11.50)
[2017-07-23 00:25] LABS: LACTATE DEHYDROGENASE 396 U/L (81-234); URIC ACID 5.9 MG/DL (2.6-7.2)
[2017-07-23] MEDS: Norco 5mg/325mg tab ORAL PRN ×2 (00:29→22:16)
[2017-07-23 00:49] LABS: FOLIC ACID 17.9 NG/ML (3.1-17.5); IRON 30 ug/dL (50-175); TOTAL IRON BINDING CAPACITY 278 ug/dL (250-450)
[2017-07-23 02:56] LABS: RETICULOCYTE COUNT 1.9 % (0.0-2.0)
[2017-07-23] MEDS: NovoLOG Insulin Flexpen SUBQ SCH ×4 (06:30→21:15)
[2017-07-23] MEDS ORDERED: Heparin 5000 units/ml inj SUBQ SCH (09:00)
[2017-07-23] MEDS: Carvedilol 6.25mg Tab ORAL SCH ×2 (09:23→21:11)
[2017-07-23 10:30] LABS: EOSINOPHILS % (AUTO) 0.7 % (0.0-3.0); MEAN CORPUSCULAR HEMOGLOBIN 29.5 PG (27.0-31.0); MEAN CORPUSCULAR HGB CONC 31.9 G/DL (32.0-36.0); MEAN CORPUSCULAR VOLUME 93 FL (80-99); MEAN PLATELET VOLUME 6.5 FL (6.5-10.1); MONOCYTES % (AUTO) 13.5 % (1.0-10.0); NEUTROPHILS % (AUTO) 72.7 % (45.0-75.0); PLATELET COUNT 174 K/UL (150-450); RED BLOOD COUNT 3.05 M/UL (4.70-6.10); RED CELL DISTRIBUTION WIDTH 18.3 % (11.6-14.8); WHITE BLOOD COUNT 7.4 K/UL (4.8-10.8)
--- NOTE | 2017-07-23 10:44 | Diagnostic Imaging Report ---
Indication: SOB Technique: One view of the chest Comparison: June 02, 2017 Findings: Inspiration is suboptimal, much less than previously. Interim development of right-sided pleural effusion. There is generalized interstitial congestion as well as focal areas of airspace consolidation in the right mid and lower lung. Interim placement left arm PICC Impression: Since June 02, 2027 2, interim development of interstitial congestion, right-sided airspace consolidation/edema, and right-sided pleural effusion PICC in good position
[2017-07-23 10:47] LABS: ANION GAP 12 mmol/L (5-15); CALCIUM 9.1 MG/DL (8.5-10.1); CARBON DIOXIDE 22 MMOL/L (21-32); CHLORIDE 107 MMOL/L (98-107); CREATININE 2.4 MG/DL (0.55-1.30); SODIUM 140 MMOL/L (136-145)
--- NOTE | 2017-07-23 10:57 | History & Physical ---
History and Physical History & Physicial Dictated for Int Med-Dr Serrato no. [id number]. MARYANNE SMALLS Jul 23, 2017 10:57
--- NOTE | 2017-07-23 12:03 | Consultation ---
History of Present Illness General Date patient seen: Jul 23, 2017 Chief Complaint: Dyspnea/Respdistress Reason for Consultation: dyspnea Present Illness HPI 66-year-old male with hx of DM, R BKA, chronic anemia, cachexia, renal insufficiency, presented to ED complaining of shortness of breath. Per EMS patient was wheezing. Denies fevers or chills. Denies cough. Denies chest pain. No other aggravating relieving factors. Denies any other associated symptoms. Pt was diagnosed with CHF/ pneumonia and admitted for further work up. Allergies: Coded Allergies: No Known Allergies (Unverified , 04/25/17) Medication History Scheduled Atorvastatin (Lipitor), 80 MG ORAL BEDTIME, (Reported) Carvedilol (Coreg), 6.25 MG ORAL EVERY 12 HOURS Furosemide* (Lasix*), 20 MG ORAL DAILY, (Reported) Gabapentin (Neurontin), 300 MG ORAL BEDTIME, (Reported) Insulin Aspart (Novolog Flexpen), 0 UNITS SUBQ BEFORE MEALS AND HS Insulin Detemir (Levemir Flexpen), 10 UNITS SUBQ BEDTIME Multivitamin With Minerals (Multivitamins With Minerals*), 1 TAB ORAL DAILY, ( Reported) Nifedipine Xl* (Procardia Xl*), 30 MG ORAL DAILY, (Reported) Omeprazole (Omeprazole), 20 MG ORAL DAILY, (Reported) Psyllium Husk (Metamucil), 1 TSP PO DAILY, (Reported) Tamsulosin Hcl (Tamsulosin Hcl*), 0.4 MG ORAL BEDTIME, (Reported) Scheduled PRN Acetaminophen* (Acetaminophen 325MG Tablet*), 2 TAB ORAL Q6H PRN for Moderate Breakthru Pain (5-7), (Reported) Acetaminophen* (Tylenol Extra Strength*), 500 MG ORAL Q6H PRN for Mild Pain ( Pain Scale 1-3), (Reported) Hydrocodone Bit/Acetaminophen 5-325* ([place] 5-325*), 1 TAB ORAL Q6H PRN Ipratropium/Albuterol Sulfate (DuoNeb 0.5-3(2.5)mg/3ml), 3 ML HHN Q4HR PRN for Shortness of Breath, (Reported) Polyethylene Glycol 3350* (Miralax*), 17 GM ORAL HSPRN PRN Discontinued Medications Acetaminophen* (Acetaminophen 325MG Tablet*), 650 MG ORAL Q4H PRN Discontinued Reason: Medication dose changed Amlodipine Besylate (Norvasc), 2.5 MG ORAL DAILY, (Reported) Discontinued Reason: MD discontinued med Ertapenem Sodium* (INVanz*), 1 GM IVPB Q24H Discontinued Reason: MD discontinued med Finasteride (Finasteride), 1 MG PO, (Reported) Discontinued Reason: MD discontinued med Furosemide* (Lasix*), 40 MG ORAL DAILY Discontinued Reason: Medication dose changed Insulin Aspart (Novolog Flexpen), 3 UNITS SUBQ NOVOTIAC Discontinued Reason: Medication dose changed Lansoprazole* (Lansoprazole*), 30 MG ORAL DAILY Discontinued Reason: MD discontinued med Nifedipine Xl* (Procardia Xl*), 60 MG ORAL DAILY Discontinued Reason: Medication dose changed Patient History Healthcare decision maker Resuscitation status Full Code Advanced Directive on File Yes Review of Systems Constitutional: Reports: malaise Eye: Reports: no symptoms Respiratory: Reports: no symptoms Physical Exam General Appearance: cachetic Lines, tubes and drains: peripheral HEENT: normocephalic, atraumatic Neck: non-tender, supple Respiratory/Chest: chest wall non-tender, lungs clear Breasts: no masses Cardiovascular/Chest: normal rate Abdomen: normal bowel sounds, soft Last 24 Hour Vital Signs Date Time Temp Pulse Resp B/P (MAP) Pulse Ox O2 Delivery O2 Flow Rate FiO2 07/23/17 09:24 121 133/83 07/23/17 09:23 121 133/83 07/23/17 08:57 97.7 121 18 133/83 97 Room Air 07/23/17 08:00 109 07/23/17 04:25 97.0 100 23 155/98 96 Room Air 07/23/17 04:00 119 07/23/17 00:32 98.4 69 23 160/79 95 Nasal Cannula 2.0 07/23/17 00:00 98.4 75 12 169/72 98 Nasal Cannula 4.0 28 80 07/23/17 00:00 79 07/22/17 23:12 98.4 80 12 169/72 98 Nasal Cannula 4.0 07/22/17 21:56 87 18 94 Nasal Cannula 2.0 28 07/22/17 21:56 84 18 Nasal Cannula 2.0 28 07/22/17 21:12 78 18 169/83 95 Nasal Cannula 4.0 07/22/17 19:12 98.4 75 18 172/98 95 Simple Mask 4.0 07/22/17 19:12 75 18 Simple Mask 4.0 98 07/22/17 18:33 98.4 75 18 172/98 95 Simple Mask 4.0 Laboratory Tests Test 07/22/17 19:30 07/22/17 21:40 07/22/17 22:00 07/23/17 10:00 White Blood Count 8.9 K/UL (4.8-10.8) 7.4 K/UL (4.8-10.8) Red Blood Count 3.08 M/UL (4.70-6.10) L 3.05 M/UL (4.70-6.10) L Hemoglobin 8.8 G/DL (14.2-18.0) L 9.0 G/DL (14.2-18.0) L Hematocrit 29.0 % (42.0-52.0) L 28.2 % (42.0-52.0) L Mean Corpuscular Volume 94 FL (80-99) 93 FL (80-99) Mean Corpuscular Hemoglobin 28.4 PG (27.0-31.0) 29.5 PG (27.0-31.0) Mean Corpuscular Hemoglobin Concent 30.2 G/DL (32.0-36.0) L 31.9 G/DL (32.0-36.0) L Red Cell Distribution Width 18.7 % (11.6-14.8) H 18.3 % (11.6-14.8) H Platelet Count 171 K/UL (150-450) 174 K/UL (150-450) Mean Platelet Volume 6.8 FL (6.5-10.1) 6.5 FL (6.5-10.1) Neutrophils (%) (Auto) 73.3 % (45.0-75.0) 72.7 % (45.0-75.0) Lymphocytes (%) (Auto) 12.4 % (20.0-45.0) L 12.0 % (20.0-45.0) L Monocytes (%) (Auto) 11.6 % (1.0-10.0) H 13.5 % (1.0-10.0) H Eosinophils (%) (Auto) 1.0 % (0.0-3.0) 0.7 % (0.0-3.0) Basophils (%) (Auto) 1.7 % (0.0-2.0) 1.0 % (0.0-2.0) Erythrocyte Sedimentation Rate 82 MM/HR (0-20) H Reticulocyte Count 1.9 % (0.0-2.0) Prothrombin Time 11.2 SEC (9.30-11.50) Prothromb Time International Ratio 1.1 (0.9-1.1) Activated Partial Thromboplast Time 31 SEC (23-33) Sodium Level 139 MMOL/L (136-145) 140 MMOL/L (136-145) Potassium Level 5.2 MMOL/L (3.5-5.1) H 5.0 MMOL/L (3.5-5.1) Chloride Level 106 MMOL/L (98-107) 107 MMOL/L (98-107) Carbon Dioxide Level 24 MMOL/L (21-32) 22 MMOL/L (21-32) Anion Gap 10 mmol/L (5-15) 12 mmol/L (5-15) Blood Urea Nitrogen 57 mg/dL (7-18) H 57 mg/dL (7-18) H Creatinine 2.5 MG/DL (0.55-1.30) H 2.4 MG/DL (0.55-1.30) H Estimat Glomerular Filtration Rate 31.5 mL/min (>60) 33.0 mL/min (>60) Glucose Level 88 MG/DL (74-106) 82 MG/DL (74-106) Uric Acid 5.9 MG/DL (2.6-7.2) Calcium Level 9.2 MG/DL (8.5-10.1) 9.1 MG/DL (8.5-10.1) Iron Level 30 ug/dL (50-175) L Total Iron Binding Capacity 278 ug/dL (250-450) Percent Iron Saturation 11 % (15-50) L Unsaturated Iron Binding 248 ug/dL (112-346) Total Bilirubin 0.4 MG/DL (0.2-1.0) Aspartate Amino Transf (AST/SGOT) 35 U/L (15-37) Alanine Aminotransferase (ALT/SGPT) 93 U/L (12-78) H Alkaline Phosphatase 172 U/L (46-116) H Lactate Dehydrogenase 396 U/L (81-234) H Total Creatine Kinase 176 U/L (26-308) Creatine Kinase MB 3.2 NG/ML (0.0-3.6) Troponin I 0.028 ng/mL (0.000-0.056) 0.024 ng/mL (0.000-0.056) Pro-B-Type Natriuretic Peptide 3722 pg/mL (0-125) H Total Protein 7.5 G/DL (6.4-8.2) Albumin 3.4 G/DL (3.4-5.0) Globulin 4.1 g/dL Albumin/Globulin Ratio 0.8 (1.0-2.7) L Vitamin B12 Level 682 PG/ML (193-986) Folate 17.9 NG/ML (3.1-17.5) H Arterial Blood pH 7.370 (7.350-7.450) Arterial Blood Partial Pressure CO2 34.9 mmHg (35.0-45.0) L Arterial Blood Partial Pressure O2 57.0 mmHg (75.0-100.0) L Arterial Blood HCO3 19.7 mmol/L (22.0-26.0) L Arterial Blood Oxygen Saturation 87.2 % (92.0-98.0) L Arterial Blood Base Excess -4.9 Carlos A Test Positive Urine Color Pale yellow Urine Appearance Clear Urine pH 5 (4.5-8.0) Urine Specific [place] 1.015 (1.005-1.035) Urine Protein 3+ (NEGATIVE) H Urine Glucose (UA) Negative (NEGATIVE) Urine Ketones Negative (NEGATIVE) Urine Occult Blood Negative (NEGATIVE) Urine Nitrite Negative (NEGATIVE) Urine Bilirubin Negative (NEGATIVE) Urine Urobilinogen Normal MG/DL (0.0-1.0) Urine Leukocyte Esterase Negative (NEGATIVE) Urine RBC 0-2 /HPF (0 - 0) H Urine WBC 0-2 /HPF (0 - 0) Urine Squamous Epithelial Cells None /LPF (NONE/OCC) Urine Bacteria None /HPF (NONE) Urine Eosinophils None seen Urine Random Sodium 60 MEQ/L (20-110) Urine Potassium Timed 31 mmol/L (12-62) Height (Feet): 6 Height (Inches): 2.00 Weight (Pounds): 164 Medications Current Medications Medications (Trade) Dose Ordered Sig/Dragan Route PRN Reason Start Time Stop Time Status Last Admin Dose Admin Acetaminophen (Tylenol) 650 mg Q4H PRN ORAL Fever 07/22/17 22:00 08/21/17 21:59 Acetaminophen/ Hydrocodone Bitart ([place] 5/325) 1 tab Q6H PRN ORAL For Pain 07/22/17 22:00 07/29/17 21:59 07/23/17 00:29 Albuterol/ Ipratropium (Albuterol/ Ipratropium) 3 ml EVERY 4 HOURS PRN HHN Shortness of Breath 07/22/17 22:00 07/27/17 21:59 Carvedilol (Coreg) 6.25 mg EVERY 12 HOURS ORAL 07/23/17 09:00 08/22/17 08:59 07/23/17 09:23 Dextrose (Dextrose 50%) STAT PRN IV Hypoglycemia 07/22/17 22:00 08/21/17 21:59 Furosemide (Lasix) 40 mg EVERY 8 HOURS IV 07/22/17 22:00 08/21/17 21:59 07/23/17 00:30 Gabapentin (Neurontin) 300 mg BEDTIME ORAL 07/23/17 21:00 08/22/17 20:59 Heparin Sodium (Porcine) (Heparin 5000 units/ml) 5,000 units EVERY 12 HOURS SUBQ 07/23/17 09:00 08/22/17 08:59 07/23/17 09:31 Insulin Aspart (NovoLOG) BEFORE MEALS AND HS SUBQ 07/23/17 06:30 08/22/17 06:29 Nifedipine (Procardia XL) 30 mg DAILY ORAL 07/23/17 09:00 08/22/17 08:59 07/23/17 09:24 Ondansetron HCl (Zofran) 4 mg Q6H PRN IVP Nausea & Vomiting 07/22/17 22:00 08/21/17 21:59 Polyethylene Glycol (Miralax) 17 gm DAILYPRN PRN ORAL Constipation 07/22/17 22:00 08/21/17 21:59 Tamsulosin HCl (Flomax) 0.4 mg BEDTIME ORAL 07/23/17 21:00 08/22/17 20:59 Temazepam (Restoril) 15 mg HSPRN PRN ORAL Insomnia 07/22/17 22:00 07/29/17 21:59 Assessment/Plan Problem List: (1) Respiratory distress ICD Codes: R06.03 - Acute respiratory distress SNOMED: 952803676 (2) Pulmonary edema ICD Codes: J81.1 - Chronic pulmonary edema SNOMED: 11486011 (3) Atrial fibrillation ICD Codes: I48.91 - Unspecified atrial fibrillation SNOMED: 98016600 (4) Pneumonia ICD Codes: J18.9 - Pneumonia, unspecified organism SNOMED: 704090427 Qualifiers: Qualified Codes: J18.1 - Lobar pneumonia, unspecified organism (5) Right BKA infection ICD Codes: T87.43 - Infection of amputation stump, right lower extremity SNOMED: 501050417 Assessment/Plan check sputum IV abx as per ID diuretics f/u BNP and CXR in am rate control cardio evaluation. BRIAN HERNANDEZ Jul 23, 2017 12:03
[2017-07-23] MEDS ORDERED: Promethazine/Codeine 5ml UD ORAL PRN (12:15)
--- NOTE | 2017-07-23 12:44 | Consultation ---
History of Present Illness General Date patient seen: Jul 23, 2017 Time patient seen: 12:42 Chief Complaint: Dyspnea/Respdistress Reason for Consultation: dyspnea Present Illness HPI 66 y/o M with hx of DM2, R BKA, HTN, BPH, GERD, CHF, chronic anemia, cachexia, CKD presents to ED on 07/22 with SOB, wheezing Denies f/c, cough, CP. Patient recently admitted here with R BKA stump infection s/p revision and set to rehab with 6 weeks of Ertapenem; end date 07/20; per patient end date 07/25. afebrile, no leukocytosis, CXR with congestions and RLL consolidation. Allergies: Coded Allergies: No Known Allergies (Unverified , 04/25/17) Medication History Scheduled Atorvastatin (Lipitor), 80 MG ORAL BEDTIME, (Reported) Carvedilol (Coreg), 6.25 MG ORAL EVERY 12 HOURS Furosemide* (Lasix*), 20 MG ORAL DAILY, (Reported) Gabapentin (Neurontin), 300 MG ORAL BEDTIME, (Reported) Insulin Aspart (Novolog Flexpen), 0 UNITS SUBQ BEFORE MEALS AND HS Insulin Detemir (Levemir Flexpen), 10 UNITS SUBQ BEDTIME Multivitamin With Minerals (Multivitamins With Minerals*), 1 TAB ORAL DAILY, ( Reported) Nifedipine Xl* (Procardia Xl*), 30 MG ORAL DAILY, (Reported) Omeprazole (Omeprazole), 20 MG ORAL DAILY, (Reported) Psyllium Husk (Metamucil), 1 TSP PO DAILY, (Reported) Tamsulosin Hcl (Tamsulosin Hcl*), 0.4 MG ORAL BEDTIME, (Reported) Scheduled PRN Acetaminophen* (Acetaminophen 325MG Tablet*), 2 TAB ORAL Q6H PRN for Moderate Breakthru Pain (5-7), (Reported) Acetaminophen* (Tylenol Extra Strength*), 500 MG ORAL Q6H PRN for Mild Pain ( Pain Scale 1-3), (Reported) Hydrocodone Bit/Acetaminophen 5-325* ([place] 5-325*), 1 TAB ORAL Q6H PRN Ipratropium/Albuterol Sulfate (DuoNeb 0.5-3(2.5)mg/3ml), 3 ML HHN Q4HR PRN for Shortness of Breath, (Reported) Polyethylene Glycol 3350* (Miralax*), 17 GM ORAL HSPRN PRN Discontinued Medications Acetaminophen* (Acetaminophen 325MG Tablet*), 650 MG ORAL Q4H PRN Discontinued Reason: Medication dose changed Amlodipine Besylate (Norvasc), 2.5 MG ORAL DAILY, (Reported) Discontinued Reason: MD discontinued med Ertapenem Sodium* (INVanz*), 1 GM IVPB Q24H Discontinued Reason: MD discontinued med Finasteride (Finasteride), 1 MG PO, (Reported) Discontinued Reason: MD discontinued med Furosemide* (Lasix*), 40 MG ORAL DAILY Discontinued Reason: Medication dose changed Insulin Aspart (Novolog Flexpen), 3 UNITS SUBQ NOVOTIAC Discontinued Reason: Medication dose changed Lansoprazole* (Lansoprazole*), 30 MG ORAL DAILY Discontinued Reason: MD discontinued med Nifedipine Xl* (Procardia Xl*), 60 MG ORAL DAILY Discontinued Reason: Medication dose changed Patient History Healthcare decision maker Resuscitation status Full Code Advanced Directive on File Yes Patient History Narrative PMhx: as above SHx: reviewed Fhx non contributory Review of Systems All Other Systems: negative except mentioned in HPI Physical Exam Physical Exam Narrative General Appearance: cachetic HEENT: normocephalic, atraumatic Neck: non-tender, supple Respiratory/Chest: chest wall non-tender, bibasilar crackles Breasts: no masses Cardiovascular/Chest: normal rate Abdomen: normal bowel sounds, soft EXT: R stump banded. view wound care pictures,. stump with sutures in place, no signs of infection. Last 24 Hour Vital Signs Date Time Temp Pulse Resp B/P (MAP) Pulse Ox O2 Delivery O2 Flow Rate FiO2 07/23/17 09:24 121 133/83 07/23/17 09:23 121 133/83 07/23/17 08:57 97.7 121 18 133/83 97 Room Air 07/23/17 08:00 109 07/23/17 04:25 97.0 100 23 155/98 96 Room Air 07/23/17 04:00 119 07/23/17 00:32 98.4 69 23 160/79 95 Nasal Cannula 2.0 07/23/17 00:00 98.4 75 12 169/72 98 Nasal Cannula 4.0 28 80 07/23/17 00:00 79 07/22/17 23:12 98.4 80 12 169/72 98 Nasal Cannula 4.0 07/22/17 21:56 87 18 94 Nasal Cannula 2.0 28 07/22/17 21:56 84 18 Nasal Cannula 2.0 28 07/22/17 21:12 78 18 169/83 95 Nasal Cannula 4.0 07/22/17 19:12 98.4 75 18 172/98 95 Simple Mask 4.0 07/22/17 19:12 75 18 Simple Mask 4.0 98 07/22/17 18:33 98.4 75 18 172/98 95 Simple Mask 4.0 Laboratory Tests Test 07/22/17 19:30 07/22/17 21:40 07/22/17 22:00 07/23/17 10:00 White Blood Count 8.9 K/UL (4.8-10.8) 7.4 K/UL (4.8-10.8) Red Blood Count 3.08 M/UL (4.70-6.10) L 3.05 M/UL (4.70-6.10) L Hemoglobin 8.8 G/DL (14.2-18.0) L 9.0 G/DL (14.2-18.0) L Hematocrit 29.0 % (42.0-52.0) L 28.2 % (42.0-52.0) L Mean Corpuscular Volume 94 FL (80-99) 93 FL (80-99) Mean Corpuscular Hemoglobin 28.4 PG (27.0-31.0) 29.5 PG (27.0-31.0) Mean Corpuscular Hemoglobin Concent 30.2 G/DL (32.0-36.0) L 31.9 G/DL (32.0-36.0) L Red Cell Distribution Width 18.7 % (11.6-14.8) H 18.3 % (11.6-14.8) H Platelet Count 171 K/UL (150-450) 174 K/UL (150-450) Mean Platelet Volume 6.8 FL (6.5-10.1) 6.5 FL (6.5-10.1) Neutrophils (%) (Auto) 73.3 % (45.0-75.0) 72.7 % (45.0-75.0) Lymphocytes (%) (Auto) 12.4 % (20.0-45.0) L 12.0 % (20.0-45.0) L Monocytes (%) (Auto) 11.6 % (1.0-10.0) H 13.5 % (1.0-10.0) H Eosinophils (%) (Auto) 1.0 % (0.0-3.0) 0.7 % (0.0-3.0) Basophils (%) (Auto) 1.7 % (0.0-2.0) 1.0 % (0.0-2.0) Erythrocyte Sedimentation Rate 82 MM/HR (0-20) H Reticulocyte Count 1.9 % (0.0-2.0) Prothrombin Time 11.2 SEC (9.30-11.50) Prothromb Time International Ratio 1.1 (0.9-1.1) Activated Partial Thromboplast Time 31 SEC (23-33) Sodium Level 139 MMOL/L (136-145) 140 MMOL/L (136-145) Potassium Level 5.2 MMOL/L (3.5-5.1) H 5.0 MMOL/L (3.5-5.1) Chloride Level 106 MMOL/L (98-107) 107 MMOL/L (98-107) Carbon Dioxide Level 24 MMOL/L (21-32) 22 MMOL/L (21-32) Anion Gap 10 mmol/L (5-15) 12 mmol/L (5-15) Blood Urea Nitrogen 57 mg/dL (7-18) H 57 mg/dL (7-18) H Creatinine 2.5 MG/DL (0.55-1.30) H 2.4 MG/DL (0.55-1.30) H Estimat Glomerular Filtration Rate 31.5 mL/min (>60) 33.0 mL/min (>60) Glucose Level 88 MG/DL (74-106) 82 MG/DL (74-106) Uric Acid 5.9 MG/DL (2.6-7.2) Calcium Level 9.2 MG/DL (8.5-10.1) 9.1 MG/DL (8.5-10.1) Iron Level 30 ug/dL (50-175) L Total Iron Binding Capacity 278 ug/dL (250-450) Percent Iron Saturation 11 % (15-50) L Unsaturated Iron Binding 248 ug/dL (112-346) Total Bilirubin 0.4 MG/DL (0.2-1.0) Aspartate Amino Transf (AST/SGOT) 35 U/L (15-37) Alanine Aminotransferase (ALT/SGPT) 93 U/L (12-78) H Alkaline Phosphatase 172 U/L (46-116) H Lactate Dehydrogenase 396 U/L (81-234) H Total Creatine Kinase 176 U/L (26-308) Creatine Kinase MB 3.2 NG/ML (0.0-3.6) Troponin I 0.028 ng/mL (0.000-0.056) 0.024 ng/mL (0.000-0.056) Pro-B-Type Natriuretic Peptide 3722 pg/mL (0-125) H Total Protein 7.5 G/DL (6.4-8.2) Albumin 3.4 G/DL (3.4-5.0) Globulin 4.1 g/dL Albumin/Globulin Ratio 0.8 (1.0-2.7) L Vitamin B12 Level 682 PG/ML (193-986) Folate 17.9 NG/ML (3.1-17.5) H Arterial Blood pH 7.370 (7.350-7.450) Arterial Blood Partial Pressure CO2 34.9 mmHg (35.0-45.0) L Arterial Blood Partial Pressure O2 57.0 mmHg (75.0-100.0) L Arterial Blood HCO3 19.7 mmol/L (22.0-26.0) L Arterial Blood Oxygen Saturation 87.2 % (92.0-98.0) L Arterial Blood Base Excess -4.9 Carlos A Test Positive Urine Color Pale yellow Urine Appearance Clear Urine pH 5 (4.5-8.0) Urine Specific [place] 1.015 (1.005-1.035) Urine Protein 3+ (NEGATIVE) H Urine Glucose (UA) Negative (NEGATIVE) Urine Ketones Negative (NEGATIVE) Urine Occult Blood Negative (NEGATIVE) Urine Nitrite Negative (NEGATIVE) Urine Bilirubin Negative (NEGATIVE) Urine Urobilinogen Normal MG/DL (0.0-1.0) Urine Leukocyte Esterase Negative (NEGATIVE) Urine RBC 0-2 /HPF (0 - 0) H Urine WBC 0-2 /HPF (0 - 0) Urine Squamous Epithelial Cells None /LPF (NONE/OCC) Urine Bacteria None /HPF (NONE) Urine Eosinophils None seen Urine Random Sodium 60 MEQ/L (20-110) Urine Potassium Timed 31 mmol/L (12-62) Height (Feet): 6 Height (Inches): 2.00 Weight (Pounds): 164 Medications Current Medications Medications (Trade) Dose Ordered Sig/Dragan Route PRN Reason Start Time Stop Time Status Last Admin Dose Admin Acetaminophen (Tylenol) 650 mg Q4H PRN ORAL Fever 07/22/17 22:00 08/21/17 21:59 Acetaminophen/ Hydrocodone Bitart ([place] 5/325) 1 tab Q6H PRN ORAL For Pain 07/22/17 22:00 07/29/17 21:59 07/23/17 00:29 Albuterol/ Ipratropium (Albuterol/ Ipratropium) 3 ml EVERY 4 HOURS PRN HHN Shortness of Breath 07/22/17 22:00 07/27/17 21:59 Carvedilol (Coreg) 6.25 mg EVERY 12 HOURS ORAL 07/23/17 09:00 08/22/17 08:59 07/23/17 09:23 Dextrose (Dextrose 50%) STAT PRN IV Hypoglycemia 07/22/17 22:00 08/21/17 21:59 Furosemide (Lasix) 40 mg EVERY 8 HOURS IV 07/22/17 22:00 08/21/17 21:59 07/23/17 00:30 Gabapentin (Neurontin) 300 mg BEDTIME ORAL 07/23/17 21:00 08/22/17 20:59 Heparin Sodium (Porcine) (Heparin 5000 units/ml) 5,000 units EVERY 12 HOURS SUBQ 07/23/17 09:00 08/22/17 08:59 07/23/17 09:31 Insulin Aspart (NovoLOG) BEFORE MEALS AND HS SUBQ 07/23/17 06:30 08/22/17 06:29 Nifedipine (Procardia XL) 30 mg DAILY ORAL 07/23/17 09:00 08/22/17 08:59 07/23/17 09:24 Ondansetron HCl (Zofran) 4 mg Q6H PRN IVP Nausea & Vomiting 07/22/17 22:00 08/21/17 21:59 Polyethylene Glycol (Miralax) 17 gm DAILYPRN PRN ORAL Constipation 07/22/17 22:00 08/21/17 21:59 Promethazine HCl/ Codeine (Phenergan with Codeine) 5 ml Q4H PRN ORAL For Cough 07/23/17 12:15 08/22/17 12:14 Tamsulosin HCl (Flomax) 0.4 mg BEDTIME ORAL 07/23/17 21:00 08/22/17 20:59 Temazepam (Restoril) 15 mg HSPRN PRN ORAL Insomnia 07/22/17 22:00 07/29/17 21:59 Assessment/Plan Assessment/Plan Abx: Levaquin x1 07/22 Assesment: SOB- possibly multifactorial: combination of acute CHF exacerbation and possible PNA (HCAP) -CXR: interim development of interstitial congestion,right-sided airspace consolidation/edema, and right-sided pleural effusion Afebrile, no leukocytosis Renal insufficiency Recent Right BKA stump wound infection with Acute OM s/p revision 06/09; on Rx -OR findings: The right [id number] amputation stump had prominent edema. The severed bone appeared healthy. The circulation appeared adequate. The posterior tibial vessels were patent as were the anterior tibial. -path: acute on chronic OM -superficial wound cx: +4 Serratia Marcecens (S. Ceftriaxone, levo/cipro, Bactrim, Zosyn), +4 E. cloace (S. Ceftriaxone, levo/Cipro, Zosyn; R bactrim); possible that these represents colonizer as wound cx was superficial and likely pathogens could still be Strep sp and MSSA. -s/p admission in [facility] in March for stump infection s/p 4 weeks of PO abx (pt unsure of abx) -06/03 ESR 116, CRP 6.1 Hyperlipidemia. History of hypoglycemia. Hypertension. Diabetes. Atrial fibrillation. Chronic anemia Cachexia Plan: -Start IV Vancomycin and Zosyn pending sputum cx for PNA; he is soon to be done with OM tx (until 07/25)- expect able to switch to oral abx upon discharge, no further IV abx for OM is required upon discharge -s/p Ertapenem 06/11-07/22 -s/p 2d Zosyn 06/11 -s/p 7d Ceftriaxone 06/09 -s/p 5d IV Vanco, 4d Zosyn 06/03 -f/u cx -recheck ESR and CRP -Monitor CBC/BMP, temperatures Thank you for this consultation. Will continue to follow along with you. Discussed with RN and Dr Brown. Reviewed old records. Liz Guevara M.D. Jul 23, 2017 12:44
--- NOTE | 2017-07-23 15:13 | Cardiology Report ---
APPROVED REPORT EXAM: Two-dimensional and M-mode echocardiogram with Doppler and color Doppler. INDICATION Left ventricular function M-Mode DIMENSIONS IVSd1.7 (0.7-1.1cm)Left Atrium (MM)4.3 (1.6-4.0cm) LVDd3.6 (3.5-5.6cm)Aortic Root3.2 (2.0-3.7cm) PWd1.2 (0.7-1.1cm)Aortic Cusp Exc.1.6 (1.5-2.0cm) LVDs2.9 (2.5-4.0cm) PWs1.0 cm Technically difficult study due to patient's position. Normal left ventricular chamber size, systolic function and wall motion to extent visualized. Left ventricular ejection fraction estimated to be 60-65%. Study quality precludes accurate assessment of regional wall motion. Moderate left ventricular hypertrophy. Trivial posterior pericardial effusion. Normal left atrial size. Mild enlargement of the right cardiac chambers. Focal aortic valve sclerosis with adequate cusp excursion. Thickened mitral valve leaflets with normal excursion. Mitral annulus and aortic root calcification. Pulmonic valve not well visualized. Normal tricuspid valve structure. IVC at normal size with physiologic collapse. A color flow and spectral Doppler study was performed and revealed: Trace aortic regurgitation. LV diastolic function cannot be determined due to atrial fibrilation. Moderate tricuspid regurgitation. Tricuspid systolic velocities suggests peak right ventricular systolic pressure of 58 mmHg, consistent with moderate to severe pulmonary hypertension. No pulmonic regurgitation present.
--- NOTE | 2017-07-23 15:51 | Cardiology Report ---
APPROVED REPORT EKG Measurement Heart [id number] Atrial fibrillation with rapid ventricular response Septal infarct, age undetermined Abnormal ECG
[2017-07-23] MEDS: Piperacillin/Tazobactam 3.375 GM in D5W 55 ML IVPB SCH (16:07)
[2017-07-23] MEDS: Vancomycin 1250mg/D5W 250ml 250 ML IVPB SCH (16:07)
--- NOTE | 2017-07-23 17:15 | Cardiology Progress Note ---
Assessment/Plan Assessment/Plan [id number] for dr romero Objective Last 24 Hour Vital Signs Date Time Temp Pulse Resp B/P (MAP) Pulse Ox O2 Delivery O2 Flow Rate FiO2 07/23/17 16:18 97.9 115 18 138/75 99 Nasal Cannula 2.0 07/23/17 12:59 97.5 113 18 130/88 94 Room Air 07/23/17 12:00 126 07/23/17 09:24 121 133/83 07/23/17 09:23 121 133/83 07/23/17 08:57 97.7 121 18 133/83 97 Room Air 07/23/17 08:00 109 07/23/17 04:25 97.0 100 23 155/98 96 Room Air 07/23/17 04:00 119 07/23/17 00:32 98.4 69 23 160/79 95 Nasal Cannula 2.0 07/23/17 00:00 98.4 75 12 169/72 98 Nasal Cannula 4.0 28 80 07/23/17 00:00 79 07/22/17 23:12 98.4 80 12 169/72 98 Nasal Cannula 4.0 07/22/17 21:56 87 18 94 Nasal Cannula 2.0 28 07/22/17 21:56 84 18 Nasal Cannula 2.0 28 07/22/17 21:12 78 18 169/83 95 Nasal Cannula 4.0 07/22/17 19:12 98.4 75 18 172/98 95 Simple Mask 4.0 07/22/17 19:12 75 18 Simple Mask 4.0 98 07/22/17 18:33 98.4 75 18 172/98 95 Simple Mask 4.0 Intake and Output 07/23/17 07/24/17 19:00 07:00 Intake Total 720 ml Balance 720 ml Intake Oral 720 ml # Voids 3 # Bowel Movements 1 Laboratory Tests Test 07/22/17 19:30 07/22/17 21:40 07/22/17 22:00 07/23/17 10:00 White Blood Count 8.9 K/UL (4.8-10.8) 7.4 K/UL (4.8-10.8) Red Blood Count 3.08 M/UL (4.70-6.10) L 3.05 M/UL (4.70-6.10) L Hemoglobin 8.8 G/DL (14.2-18.0) L 9.0 G/DL (14.2-18.0) L Hematocrit 29.0 % (42.0-52.0) L 28.2 % (42.0-52.0) L Mean Corpuscular Volume 94 FL (80-99) 93 FL (80-99) Mean Corpuscular Hemoglobin 28.4 PG (27.0-31.0) 29.5 PG (27.0-31.0) Mean Corpuscular Hemoglobin Concent 30.2 G/DL (32.0-36.0) L 31.9 G/DL (32.0-36.0) L Red Cell Distribution Width 18.7 % (11.6-14.8) H 18.3 % (11.6-14.8) H Platelet Count 171 K/UL (150-450) 174 K/UL (150-450) Mean Platelet Volume 6.8 FL (6.5-10.1) 6.5 FL (6.5-10.1) Neutrophils (%) (Auto) 73.3 % (45.0-75.0) 72.7 % (45.0-75.0) Lymphocytes (%) (Auto) 12.4 % (20.0-45.0) L 12.0 % (20.0-45.0) L Monocytes (%) (Auto) 11.6 % (1.0-10.0) H 13.5 % (1.0-10.0) H Eosinophils (%) (Auto) 1.0 % (0.0-3.0) 0.7 % (0.0-3.0) Basophils (%) (Auto) 1.7 % (0.0-2.0) 1.0 % (0.0-2.0) Erythrocyte Sedimentation Rate 82 MM/HR (0-20) H Reticulocyte Count 1.9 % (0.0-2.0) Prothrombin Time 11.2 SEC (9.30-11.50) Prothromb Time International Ratio 1.1 (0.9-1.1) Activated Partial Thromboplast Time 31 SEC (23-33) Sodium Level 139 MMOL/L (136-145) 140 MMOL/L (136-145) Potassium Level 5.2 MMOL/L (3.5-5.1) H 5.0 MMOL/L (3.5-5.1) Chloride Level 106 MMOL/L (98-107) 107 MMOL/L (98-107) Carbon Dioxide Level 24 MMOL/L (21-32) 22 MMOL/L (21-32) Anion Gap 10 mmol/L (5-15) 12 mmol/L (5-15) Blood Urea Nitrogen 57 mg/dL (7-18) H 57 mg/dL (7-18) H Creatinine 2.5 MG/DL (0.55-1.30) H 2.4 MG/DL (0.55-1.30) H Estimat Glomerular Filtration Rate 31.5 mL/min (>60) 33.0 mL/min (>60) Glucose Level 88 MG/DL (74-106) 82 MG/DL (74-106) Uric Acid 5.9 MG/DL (2.6-7.2) Calcium Level 9.2 MG/DL (8.5-10.1) 9.1 MG/DL (8.5-10.1) Iron Level 30 ug/dL (50-175) L Total Iron Binding Capacity 278 ug/dL (250-450) Percent Iron Saturation 11 % (15-50) L Unsaturated Iron Binding 248 ug/dL (112-346) Total Bilirubin 0.4 MG/DL (0.2-1.0) Aspartate Amino Transf (AST/SGOT) 35 U/L (15-37) Alanine Aminotransferase (ALT/SGPT) 93 U/L (12-78) H Alkaline Phosphatase 172 U/L (46-116) H Lactate Dehydrogenase 396 U/L (81-234) H Total Creatine Kinase 176 U/L (26-308) Creatine Kinase MB 3.2 NG/ML (0.0-3.6) Troponin I 0.028 ng/mL (0.000-0.056) 0.024 ng/mL (0.000-0.056) Pro-B-Type Natriuretic Peptide 3722 pg/mL (0-125) H Total Protein 7.5 G/DL (6.4-8.2) Albumin 3.4 G/DL (3.4-5.0) Globulin 4.1 g/dL Albumin/Globulin Ratio 0.8 (1.0-2.7) L Vitamin B12 Level 682 PG/ML (193-986) Folate 17.9 NG/ML (3.1-17.5) H Arterial Blood pH 7.370 (7.350-7.450) Arterial Blood Partial Pressure CO2 34.9 mmHg (35.0-45.0) L Arterial Blood Partial Pressure O2 57.0 mmHg (75.0-100.0) L Arterial Blood HCO3 19.7 mmol/L (22.0-26.0) L Arterial Blood Oxygen Saturation 87.2 % (92.0-98.0) L Arterial Blood Base Excess -4.9 Carlos A Test Positive Urine Color Pale yellow Urine Appearance Clear Urine pH 5 (4.5-8.0) Urine Specific [place] 1.015 (1.005-1.035) Urine Protein 3+ (NEGATIVE) H Urine Glucose (UA) Negative (NEGATIVE) Urine Ketones Negative (NEGATIVE) Urine Occult Blood Negative (NEGATIVE) Urine Nitrite Negative (NEGATIVE) Urine Bilirubin Negative (NEGATIVE) Urine Urobilinogen Normal MG/DL (0.0-1.0) Urine Leukocyte Esterase Negative (NEGATIVE) Urine RBC 0-2 /HPF (0 - 0) H Urine WBC 0-2 /HPF (0 - 0) Urine Squamous Epithelial Cells None /LPF (NONE/OCC) Urine Bacteria None /HPF (NONE) Urine Eosinophils None seen Urine Random Sodium 60 MEQ/L (20-110) Urine Potassium Timed 31 mmol/L (12-62) SIDDHARTHA MADERA Jul 23, 2017 17:15
[2017-07-23] MEDS: dilTIAZem HCl 60mg tab ORAL SCH (17:55)
[2017-07-23] MEDS: Eliquis 2.5mg tablet ORAL SCH (17:55)
--- NOTE | 2017-07-23 20:16 | History and Physical Report ---
DATE OF ADMISSION: 07/22/2017 CHIEF COMPLAINT: The patient is a 66-year-old male who presents with chief complaint of shortness of breath. HISTORY OF PRESENT ILLNESS: The patient was admitted to [facility] from 05/30/2017 to 06/13/2017. Please see history and physical and discharge summary dictated at that time. The patient was discharged to [facility]. According to staff at [facility], the patient began to experience acute shortness of breath yesterday, 07/22/2017. The patient was transferred to [facility] Emergency Room. The patient was found to have atrial fibrillation with rapid ventricular rate to the 130s to 140s. The patient is admitted for atrial fibrillation with rapid ventricular rate. PAST MEDICAL HISTORY: Significant for: 1. Type 2 diabetes. 2. Hypertension. 3. Hypercholesterolemia. 4. History of atrial fibrillation. PAST SURGICAL HISTORY: Significant for right ihjqv-ivo-jtiz amputation. CURRENT MEDICATIONS: 1. Lipitor 80 mg one tablet p.o. . 2. Coreg 6.25 mg one tablet p.o. twice daily. 3. Lasix 20 mg one tablet p.o. daily. 4. Gabapentin 300 mg one tablet p.o. nightly. 5. [place] 5/325 mg one tablet p.o. q.6 h. p.r.n. 6. NovoLog sliding scale. 7. Levemir 10 units subcutaneously nightly. 8. DuoNeb nebulized q.4 h. p.r.n. 9. Nifedipine 30 mg p.o. daily. 10. Omeprazole 20 mg one tablet p.o. daily. 11. MiraLax 17 g p.o. daily. 12. Metamucil one tablespoon p.o. daily. 13. Flomax 0.4 mg one tablet p.o. nightly. ALLERGIES: No known drug allergies. SOCIAL HISTORY: The patient is a . The patient has a significant other. The patient is currently a resident of [facility]. The patient admits to tobacco use one pack per day. The patient denies alcohol use. REVIEW OF SYSTEMS: CONSTITUTIONAL: The patient denies weight loss or weight gain. The patient denies fevers or chills. HEENT: The patient denies ear or throat pain. The patient denies headache. CARDIOVASCULAR: The patient denies palpitations or chest pain. CHEST: The patient denies wheezes. The patient complains of shortness of breath as above. ABDOMEN: The patient denies nausea, vomiting, diarrhea, or constipation. GENITOURINARY: The patient denies dysuria or increased frequency of urination. NEUROMUSCULAR: The patient denies seizures or generalized weakness. PHYSICAL EXAMINATION: VITAL SIGNS: Temperature 97.0 degrees, respirations 23, pulse 100 to 121, blood pressure 133 to 155 over 83 to 98. GENERAL: The patient is well-developed, well-nourished, thin-appearing, male, in no apparent distress. HEENT: Eyes, pupils equal and responsive to light and accommodation. Extraocular movements are intact. NECK: Supple without lymphadenopathy. CHEST: Lungs are clear to auscultation bilaterally with few crackles at bilateral bases. Otherwise, clear to auscultation without wheezes or rales. CARDIOVASCULAR: Irregular rhythm. Irregular rate. S1 and S2 normal without murmurs, rubs, or gallops. The patient is tachycardic. ABDOMEN: Soft, nontender, and nondistended. Positive bowel sounds. No evidence of hepatosplenomegaly. Currently, no rebound or guarding noted. RECTAL: Refused. GENITAL: Refused. EXTREMITIES: Negative for clubbing, cyanosis, or edema. NEUROLOGIC: Cranial nerves II to XII are grossly intact without focal deficits. Motor strength is 5/5 bilaterally. Deep tendon reflexes are 2+ plantar. LABORATORY STUDIES: WBC 8.9, hemoglobin 8.8, hematocrit 29.0, and platelets 171,000. Sodium 139, potassium 5.2, chloride 106, CO2 24, BUN 57, creatinine 2.5, and glucose 88. EKG demonstrated atrial fibrillation with ventricular rate of approximately 120 beats per minute. No acute ST waves or Q-waves noted. A chest x-ray is pending. ASSESSMENT: This is a 66-year-old male with: 1. Shortness of breath. 2. Atrial fibrillation with rapid ventricular rate. 3. Congestive heart failure. 4. Acute renal failure. 5. Diabetes type 2. 6. Hypertension. 7. Hypercholesteremia. 8. Right dkidv-mtd-sjqp amputation. 9. Diabetic peripheral vascular disease. 10. Benign prostatic hypertrophy. TREATMENT: 1. Shortness of breath. This is probably secondary to congestive heart failure. A Pulmonary consultation has been obtained with Dr. Randy Brown. 2. Atrial fibrillation with rapid ventricular rate/congestive heart failure. The patient was evaluated by Dr. Pradeep Ortiz during the previous hospitalization. A Cardiology consultation has been obtained with Dr. Ortiz. Continue Procardia as above. The patient may require intravenous diltiazem to slow heart rate. We will follow recommendations of Cardiology. 3. Congestive heart failure. Serial troponin levels will be run to rule out acute myocardial infarction. Serial BNP levels will be performed. The patient is currently receiving Lasix. We will follow recommendation of Cardiology as above. 4. Renal failure. A Nephrology consultation has been obtained with Dr. Pinedo. This may be secondary to congestive heart failure and prerenal azotemia. 5. Diabetes type 2. Continue NovoLog sliding scale and Levemir. 6. Hypertension. Continue Coreg as above. 7. Hypercholesteremia. Continue Lipitor as above. 8. Right uowzg-fct-nssk amputation. 9. Diabetic peripheral vascular disease. 10. Benign prostatic hypertrophy. Continue Flomax as above. Felton Medellin M.D. DR: Derrick JOB#: [id number] CC:
[2017-07-23] MEDS: Tamsulosin 0.4mg cap ORAL SCH (21:12)
[2017-07-24] VITALS: BP 137/74
[2017-07-24] MEDS: dilTIAZem HCl 60mg tab ORAL SCH ×3 (00:19→16:00)
--- NOTE | 2017-07-24 01:17 | Consultation ---
DATE OF CONSULTATION: 07/23/2017 CARDIOLOGY CONSULTATION CONSULTING PHYSICIAN: Angel Calix M.D. ATTENDING PHYSICIAN: Bruno Serrato M.D. REFERRING PHYSICIAN: Bruno Serrato M.D. REASON FOR REFERRAL: Atrial fibrillation. HISTORY OF PRESENT ILLNESS: This is a middle-aged gentleman who is admitted to the hospital because of shortness of breath and wheezing, although the patient himself denies any coughing. He indicates he was diagnosed with pneumonia but does not really have any "symptoms." Nevertheless, he does not have any chest pain or pressure. There is no PND. He uses 2-3 pillows for back support. No dizziness on standing. No heart pounding, palpitations, or discomfort of any kind. On arrival apparently when he came to the emergency room he was in sinus and subsequently converted to atrial fibrillation. This consultation is requested, but the patient has no signs or symptoms related to that. PAST MEDICAL HISTORY: Extensive and he has been hospitalized here on several occasions. As I can gather, he had been seen by Dr. Ortiz before. The patient has paroxysmal episodes of atrial fibrillation, on Coreg 6.25 mg twice a day and Eliquis 2.5 mg twice a day. Systemic hypertension, treated on Procardia XL as well as Coreg and Lasix. Hyperlipidemia, on Lipitor. The patient has no history of heart attack, diabetes, or high blood pressure. No cancer. He is not sure about a stroke, although he may have had one. No hepatitis, tuberculosis, asthma, or emphysema. No ulcers. He has actually chronic renal insufficiency. No liver problems, thyroid problems, or anemia. He does have arthritis. He does not have any prostate problems. No deep venous thromboses, HIV, or AIDS. ALLERGIES: He is not allergic to any medication. SOCIAL HISTORY: He used to smoke, he quit 8 weeks ago. He drinks wine. No drug use. REVIEW OF SYSTEMS: GASTROINTESTINAL: He has had some nausea. No vomiting. No diarrhea. No bloody stools. GENITOURINARY: Negative. PULMONARY: He does have some wheezing, but no coughing. CONSTITUTIONAL: Negative. NEUROLOGICAL: Negative. PHYSICAL EXAMINATION: GENERAL: Shows to be a middle-aged gentleman, in no respiratory distress. HEENT: Unremarkable. NECK: Supple. No jugular venous distention. LUNGS: Appear to be clear to auscultation and percussion. No wheezes. No crackles noted. CARDIAC: Irregularly irregular. No heaves, thrills, or gallops noted. ABDOMEN: Soft, nontender. Positive bowel sounds. EXTREMITIES: There is no clubbing, cyanosis, nor is there any edema. NEUROLOGICAL: He is awake, alert, responsive, and in no apparent respiratory distress. LABORATORY VALUES: An echocardiogram has been performed which showed ejection fraction of 60% to 65%, technically difficult study and pulmonary hypertension with PA pressure in the 58. His last echocardiogram in April had shown PA pressure at that time underestimated at 60. He has had a chest x-ray that shows interstitial congestion, right-sided airspace consolidation and edema, right-sided pleural effusion. His blood test, white count of 7.4, hemoglobin 9, and platelet count of 174. His hemoglobin has been 9.9 previously and actually has been as low as 8.1. His chemistry, sodium 140, potassium 5.0, chloride 107, bicarbonate 22, BUN 57, creatinine 2.4, glucose of 82. His troponin on two occasions in this admission was negative. B12 is 692. Folic acid is 17.9. Lactic acid of 396. Iron saturation of 11%. Calcium is 9.1. INR 1.0 and PTT of 31. Urinalysis is fairly unremarkable. His electrocardiogram shows sinus at the time of his original admission and subsequently atrial fibrillation with rapid ventricular response of mild degree, normal QRS axis, no significant ST-T wave abnormalities, delayed R-wave progression has been noted on both resting EKG in sinus and the one in atrial fibrillation. ASSESSMENT AND PLAN: 1. Paroxysmal episodes of atrial fibrillation with present recurrence. 2. Diabetes. 3. Hypertension. 4. Right-sided pulmonary infiltrate and effusion. 5. Chronic kidney disease. Dr. Serrato, this patient was seen in cardiac consultation for Dr. Ortiz who is out at the present time. The patient is now being treated actively with antibiotics for possibility of pulmonary infiltrate although he does not really have any symptoms of a cough to substantiate as a diagnosis. Nevertheless, he is being given breathing treatments. In addition, he is receiving intravenous Lasix which he may not need for a very long time. His blood pressure appears to be controlled on the doses of Procardia that he is receiving at this time. I would favor addition of beta-blockers, Coreg, to maintain a slower heart rate. If that does not become effective, however, in light of the fact that he has some atrial fibrillation, I would consider switching him to Cardizem to help control his heart rate as well as his blood pressure at the same time. He should be continued on the dose of his Eliquis to prevent strokes. I have discussed that with the patient already. The patient has been on Eliquis on prior occasions and it should be continued at this time. With the degree of renal insufficiency, Eliquis should be tolerable for him. previously apparently but I do not see that on his medication at the time of admission. The other option certainly is treatment with antiarrhythmic amiodarone, but at the age of 66 and possibility of some lung issues, I would not prefer that as an option at this time. Angel Calix M.D. DR: Mayito JOB#: [id number] CC:
[2017-07-24] MEDS: Piperacillin/Tazobactam 3.375 GM in D5W 55 ML IVPB SCH ×2 (03:04→15:14)
[2017-07-24 04:00] VITALS: BP_SYST 129; BP_SYST 137; BP_DIAS 69; BP_DIAS 78
[2017-07-24] MEDS: NovoLOG Insulin Flexpen SUBQ SCH ×4 (06:19→20:55)
[2017-07-24 07:14] LABS: BASOPHILS % (AUTO) 1.4 % (0.0-2.0); EOSINOPHILS % (AUTO) 1.7 % (0.0-3.0); LYMPHOCYTES % (AUTO) 18.8 % (20.0-45.0); MEAN CORPUSCULAR HEMOGLOBIN 30.2 PG (27.0-31.0); MEAN CORPUSCULAR HGB CONC 32.8 G/DL (32.0-36.0); MEAN CORPUSCULAR VOLUME 92 FL (80-99); MEAN PLATELET VOLUME 7.2 FL (6.5-10.1); MONOCYTES % (AUTO) 15.2 % (1.0-10.0); NEUTROPHILS % (AUTO) 62.9 % (45.0-75.0); PLATELET COUNT 173 K/UL (150-450); RED BLOOD COUNT 2.93 M/UL (4.70-6.10); RED CELL DISTRIBUTION WIDTH 18.2 % (11.6-14.8); WHITE BLOOD COUNT 7.7 K/UL (4.8-10.8)
[2017-07-24 07:27] LABS: ANION GAP 10 mmol/L (5-15); CALCIUM 8.6 MG/DL (8.5-10.1); CARBON DIOXIDE 23 MMOL/L (21-32); CHLORIDE 106 MMOL/L (98-107); CREATININE 2.7 MG/DL (0.55-1.30); GLOMERULAR FILTRATION RATE 28.8 mL/min (>60); SODIUM 139 MMOL/L (136-145)
[2017-07-24 08:38] VITALS: BP 100/62
--- NOTE | 2017-07-24 08:42 | Diagnostic Imaging Report ---
Indication: Abnormal renal function Technique: Renal ultrasound Findings: Kidneys: The kidneys are echogenic bilaterally. They are normal in size measuring 10 cm on the right and 10.2 cm on the left. There is bilateral mild hydronephrosis. An anechoic mass in the left kidney measures 3.3 cm area there is also an anechoic mass in the right kidney measuring 1 cm. IVC: The visualized portion of the inferior vena cava appears normal. Bladder: The prevoid bladder volume is calculated at 1307 cc. Postvoid there is a large residual urine volume of 1163 cc. There is some trabeculation of the bladder. Right pleural effusion is present. Impression: Echogenic kidneys with bilateral hydronephrosis. Large post void residual urine in the bladder. Small right pleural effusion. Bilateral renal cysts.
[2017-07-24] MEDS: Carvedilol 6.25mg Tab ORAL SCH ×2 (09:59→17:41)
[2017-07-24] MEDS: Eliquis 2.5mg tablet ORAL SCH ×2 (10:00→17:41)
[2017-07-24] MEDS: Norco 5mg/325mg tab ORAL PRN ×2 (10:01→20:54)
--- NOTE | 2017-07-24 10:11 | Infectious Diseases Prog Note ---
Assessment/Plan Assessment/Plan Abx: Levaquin x1 07/22 Vanco/Zosyn 07/23- Assesment: SOB- possibly multifactorial: combination of acute CHF exacerbation and possible PNA (HCAP) -CXR: interim development of interstitial congestion,right-sided airspace consolidation/edema, and right-sided pleural effusion Afebrile, no leukocytosis Renal insufficiency, worsening -Renal US: Echogenic kidneys with bilateral hydronephrosis.Large post void residual urine in the bladder.Small right pleural effusion.Bilateral renal cysts. 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 The severed bone appeared healthy. The circulation appeared adequate. The posterior tibial vessels were patent as were the anterior tibial. -path: acute on chronic OM -superficial wound cx: +4 Serratia Marcecens (S. Ceftriaxone, levo/cipro, Bactrim, Zosyn), +4 E. cloace (S. Ceftriaxone, levo/Cipro, Zosyn; R bactrim); possible that these represents colonizer as wound cx was superficial and likely pathogens could still be Strep sp and MSSA. -s/p admission in [facility] in March for stump infection s/p 4 weeks of PO abx (pt unsure of abx) -06/03 ESR 116, CRP 6.1 Hyperlipidemia. History of hypoglycemia. Hypertension. Diabetes. Atrial fibrillation. Chronic anemia Cachexia Plan: -Continue IV Vancomycin and Zosyn #2/5-7 pending sputum cx for PNA; he is soon to be done with OM tx (until 07/25)- expect able to switch to oral abx upon discharge, no further IV abx for OM is required upon discharge -s/p Ertapenem 06/11-07/22 -s/p 2d Zosyn 06/11 -s/p 7d Ceftriaxone 06/09 -s/p 5d IV Vanco, 4d Zosyn 06/03 -f/u cx -recheck ESR and CRP -Monitor CBC/BMP, temperatures Thank you for this consultation. Will continue to follow along with you. Discussed with RN Subjective Allergies: Coded Allergies: No Known Allergies (Unverified , 04/25/17) Subjective afebrile no leukocytosis Bcx NTD sp cxp Objective Vital Signs Last 24 Hour Vital Signs Date Time Temp Pulse Resp B/P (MAP) Pulse Ox O2 Delivery O2 Flow Rate FiO2 07/24/17 10:03 67 116/71 07/24/17 09:59 67 116/71 07/24/17 08:38 97.0 64 18 100/62 96 Nasal Cannula 3.0 07/24/17 06:52 93 20 Nasal Cannula 2.0 28 07/24/17 06:52 Nasal Cannula 2.0 28 07/24/17 06:52 95 Nasal Cannula 2.0 28 07/24/17 04:01 Nasal Cannula 3.0 07/24/17 04:00 97.3 100 22 137/78 93 Nasal Cannula 3.0 28 07/24/17 04:00 98 07/24/17 04:00 97.9 89 20 129/69 98 Room Air 07/24/17 00:19 101 137/78 07/24/17 00:01 Nasal Cannula 3.0 07/24/17 00:00 97.3 100 22 137/74 93 Room Air 07/24/17 00:00 114 07/23/17 22:00 97.9 92 23 140/68 94 Room Air 07/23/17 21:11 89 140/68 07/23/17 20:50 Nasal Cannula 3.0 07/23/17 20:49 97.9 92 23 127/75 94 Nasal Cannula 3.0 07/23/17 20:00 106 07/23/17 20:00 97.9 115 20 138/75 Nasal Cannula 2.0 28 07/23/17 20:00 97.9 115 20 138/75 94 07/23/17 19:45 94 Nasal Cannula 2.0 28 07/23/17 19:45 118 20 Nasal Cannula 2.0 28 07/23/17 19:45 Nasal Cannula 2.0 28 07/23/17 17:55 115 138/75 07/23/17 17:52 Nasal Cannula 3.0 32 07/23/17 16:18 97.9 115 18 138/75 99 Nasal Cannula 2.0 07/23/17 16:00 106 07/23/17 15:07 97 Nasal Cannula 3.0 32 07/23/17 15:00 98 24 Room Air 21 07/23/17 15:00 85 Room Air 21 07/23/17 12:59 97.5 113 18 130/88 94 Room Air 07/23/17 12:00 126 Height (Feet): 6 Height (Inches): 2.00 Weight (Pounds): 164 Objective General Appearance: cachetic HEENT: normocephalic, atraumatic Neck: non-tender, supple Respiratory/Chest: chest wall non-tender, bibasilar crackles Breasts: no masses Cardiovascular/Chest: normal rate Abdomen: normal bowel sounds, soft EXT: R stump banded. view wound care pictures,. stump with sutures in place, no signs of infection. Microbiology Date/Time Source Procedure Growth Status 07/22/17 19:30 Blood Blood Culture - Preliminary NO GROWTH AFTER 24 HOURS Resulted 07/22/17 19:25 Blood Blood Culture - Preliminary NO GROWTH AFTER 24 HOURS Resulted Laboratory Tests Test 07/24/17 05:10 White Blood Count 7.7 K/UL (4.8-10.8) Red Blood Count 2.93 M/UL (4.70-6.10) L Hemoglobin 8.8 G/DL (14.2-18.0) L Hematocrit 26.9 % (42.0-52.0) L Mean Corpuscular Volume 92 FL (80-99) Mean Corpuscular Hemoglobin 30.2 PG (27.0-31.0) Mean Corpuscular Hemoglobin Concent 32.8 G/DL (32.0-36.0) Red Cell Distribution Width 18.2 % (11.6-14.8) H Platelet Count 173 K/UL (150-450) Mean Platelet Volume 7.2 FL (6.5-10.1) Neutrophils (%) (Auto) 62.9 % (45.0-75.0) Lymphocytes (%) (Auto) 18.8 % (20.0-45.0) L Monocytes (%) (Auto) 15.2 % (1.0-10.0) H Eosinophils (%) (Auto) 1.7 % (0.0-3.0) Basophils (%) (Auto) 1.4 % (0.0-2.0) Sodium Level 139 MMOL/L (136-145) Potassium Level 5.0 MMOL/L (3.5-5.1) Chloride Level 106 MMOL/L (98-107) Carbon Dioxide Level 23 MMOL/L (21-32) Anion Gap 10 mmol/L (5-15) Blood Urea Nitrogen 58 mg/dL (7-18) H Creatinine 2.7 MG/DL (0.55-1.30) H Estimat Glomerular Filtration Rate 28.8 mL/min (>60) Glucose Level 129 MG/DL (74-106) H Calcium Level 8.6 MG/DL (8.5-10.1) Magnesium Level 2.3 MG/DL (1.8-2.4) Troponin I 0.026 ng/mL (0.000-0.056) C-Reactive Protein, Quantitative 1.7 mg/dL (0.00-0.90) H Pro-B-Type Natriuretic Peptide 5353 pg/mL (0-125) H Current Medications Medications (Trade) Dose Ordered Sig/Dragan Route PRN Reason Start Time Stop Time Status Last Admin Dose Admin Acetaminophen (Tylenol) 650 mg Q4H PRN ORAL Fever 07/22/17 22:00 08/21/17 21:59 Acetaminophen/ Hydrocodone Bitart ([place] 5/325) 1 tab Q6H PRN ORAL For Pain 07/22/17 22:00 07/29/17 21:59 07/24/17 10:01 Albuterol/ Ipratropium (Albuterol/ Ipratropium) 3 ml EVERY 4 HOURS PRN HHN Shortness of Breath 07/22/17 22:00 07/27/17 21:59 Apixaban (Eliquis) 2.5 mg BID ORAL 07/23/17 18:00 08/22/17 17:59 07/24/17 10:00 Carvedilol (Coreg) 6.25 mg EVERY 12 HOURS ORAL 07/23/17 09:00 08/22/17 08:59 07/24/17 09:59 Dextrose (Dextrose 50%) STAT PRN IV Hypoglycemia 07/22/17 22:00 08/21/17 21:59 Diltiazem HCl (Cardizem) 60 mg Q8H ORAL 07/24/17 08:00 08/23/17 07:59 07/24/17 10:03 Furosemide (Lasix) 40 mg EVERY 8 HOURS IV 07/22/17 22:00 08/21/17 21:59 07/24/17 06:17 Gabapentin (Neurontin) 300 mg BEDTIME ORAL 07/23/17 21:00 08/22/17 20:59 07/23/17 21:12 Insulin Aspart (NovoLOG) BEFORE MEALS AND HS SUBQ 07/23/17 06:30 08/22/17 06:29 07/24/17 06:19 Ondansetron HCl (Zofran) 4 mg Q6H PRN IVP Nausea & Vomiting 07/22/17 22:00 08/21/17 21:59 Piperacillin Sod/ Tazobactam Sod 3.375 gm/Dextrose 55 ml @ 13.75 mls/ hr Q12H IVPB 07/23/17 15:00 07/30/17 14:59 07/24/17 03:04 Polyethylene Glycol (Miralax) 17 gm DAILYPRN PRN ORAL Constipation 07/22/17 22:00 08/21/17 21:59 Promethazine HCl/ Codeine (Phenergan with Codeine) 5 ml Q4H PRN ORAL For Cough 07/23/17 12:15 08/22/17 12:14 Tamsulosin HCl (Flomax) 0.4 mg BEDTIME ORAL 07/23/17 21:00 08/22/17 20:59 07/23/17 21:12 Temazepam (Restoril) 15 mg HSPRN PRN ORAL Insomnia 07/22/17 22:00 07/29/17 21:59 Vancomycin HCl (Vanco rx to dose) 1 ea DAILYPRN PRN MISC Per rx protocol 07/23/17 13:15 08/22/17 13:14 Vancomycin HCl/ Dextrose 250 ml @ 166.667 mls/hr Q24H IVPB 07/23/17 16:30 07/28/17 16:29 07/23/17 16:07 Liz Guevara M.D. Jul 24, 2017 10:11
--- NOTE | 2017-07-24 10:21 | Pulmonology Progress Note ---
Assessment/Plan Problems: (1) Respiratory distress (2) Pulmonary edema (3) Atrial fibrillation (4) Pneumonia (5) Right BKA infection Assessment/Plan all notes reviewed ID consult appreciated Urology called for bilateral hydronephrosis increase Lasix to 80 BID Subjective ROS Limited/Unobtainable: No Interval Events: still coughing brown, yellow sputum Allergies: Coded Allergies: No Known Allergies (Unverified , 04/25/17) Objective Last 24 Hour Vital Signs Date Time Temp Pulse Resp B/P (MAP) Pulse Ox O2 Delivery O2 Flow Rate FiO2 07/24/17 10:03 67 116/71 07/24/17 09:59 67 116/71 07/24/17 08:38 97.0 64 18 100/62 96 Nasal Cannula 3.0 07/24/17 06:52 93 20 Nasal Cannula 2.0 28 07/24/17 06:52 Nasal Cannula 2.0 28 07/24/17 06:52 95 Nasal Cannula 2.0 28 07/24/17 04:01 Nasal Cannula 3.0 07/24/17 04:00 97.3 100 22 137/78 93 Nasal Cannula 3.0 28 07/24/17 04:00 98 07/24/17 04:00 97.9 89 20 129/69 98 Room Air 07/24/17 00:19 101 137/78 07/24/17 00:01 Nasal Cannula 3.0 07/24/17 00:00 97.3 100 22 137/74 93 Room Air 07/24/17 00:00 114 07/23/17 22:00 97.9 92 23 140/68 94 Room Air 07/23/17 21:11 89 140/68 07/23/17 20:50 Nasal Cannula 3.0 07/23/17 20:49 97.9 92 23 127/75 94 Nasal Cannula 3.0 07/23/17 20:00 106 07/23/17 20:00 97.9 115 20 138/75 Nasal Cannula 2.0 28 07/23/17 20:00 97.9 115 20 138/75 94 07/23/17 19:45 94 Nasal Cannula 2.0 28 07/23/17 19:45 118 20 Nasal Cannula 2.0 28 07/23/17 19:45 Nasal Cannula 2.0 28 07/23/17 17:55 115 138/75 07/23/17 17:52 Nasal Cannula 3.0 32 07/23/17 16:18 97.9 115 18 138/75 99 Nasal Cannula 2.0 07/23/17 16:00 106 07/23/17 15:07 97 Nasal Cannula 3.0 32 07/23/17 15:00 98 24 Room Air 21 07/23/17 15:00 85 Room Air 21 07/23/17 12:59 97.5 113 18 130/88 94 Room Air 07/23/17 12:00 126 Intake and Output 07/24/17 07/25/17 19:00 07:00 Intake Total 120 ml Balance 120 ml Intake Oral 120 ml General Appearance: WD/WN HEENT: normocephalic, anicteric Respiratory/Chest: chest wall non-tender, lungs clear, normal breath sounds, decreased breath sounds, crackles/rales Cardiovascular: normal peripheral pulses, normal rate Abdomen: normal bowel sounds, soft, non tender Genitourinary: normal external genitalia Extremities: no cyanosis Skin: no rash Neurologic/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: 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 normal, no motor/sensory deficits Lymphatic: no neck adenopathy Microbiology Date/Time Source Procedure Growth Status 07/22/17 19:30 Blood Blood Culture - Preliminary NO GROWTH AFTER 24 HOURS Resulted 07/22/17 19:25 Blood Blood Culture - Preliminary NO GROWTH AFTER 24 HOURS Resulted Laboratory Tests 07/24/17 05:10: White Blood Count 7.7, Red Blood Count 2.93L, Hemoglobin 8.8L, Hematocrit 26.9L , Mean Corpuscular Volume 92, Mean Corpuscular Hemoglobin 30.2, Mean Corpuscular Hemoglobin Concent 32.8, Red Cell Distribution Width 18.2H, Platelet Count 173, Mean Platelet Volume 7.2, Neutrophils (%) (Auto) 62.9, Lymphocytes (%) (Auto) 18.8L, Monocytes (%) (Auto) 15.2H, Eosinophils (%) (Auto ) 1.7, Basophils (%) (Auto) 1.4, Sodium Level 139, Potassium Level 5.0, Chloride Level 106, Carbon Dioxide Level 23, Anion Gap 10, Blood Urea Nitrogen 58H, Creatinine 2.7H, Estimat Glomerular Filtration Rate 28.8, Glucose Level 129H, Calcium Level 8.6, Magnesium Level 2.3, Troponin I 0.026, C-Reactive Protein, Quantitative 1.7H, Pro-B-Type Natriuretic Peptide 5353H Current Medications Medications (Trade) Dose Ordered Sig/Dragan Route PRN Reason Start Time Stop Time Status Last Admin Dose Admin Acetaminophen (Tylenol) 650 mg Q4H PRN ORAL Fever 07/22/17 22:00 08/21/17 21:59 Acetaminophen/ Hydrocodone Bitart (Elkins 5/325) 1 tab Q6H PRN ORAL For Pain 07/22/17 22:00 07/29/17 21:59 07/24/17 10:01 Albuterol/ Ipratropium (Albuterol/ Ipratropium) 3 ml EVERY 4 HOURS PRN HHN Shortness of Breath 07/22/17 22:00 07/27/17 21:59 Apixaban (Eliquis) 2.5 mg BID ORAL 07/23/17 18:00 08/22/17 17:59 07/24/17 10:00 Carvedilol (Coreg) 6.25 mg EVERY 12 HOURS ORAL 07/23/17 09:00 08/22/17 08:59 07/24/17 09:59 Dextrose (Dextrose 50%) STAT PRN IV Hypoglycemia 07/22/17 22:00 08/21/17 21:59 Diltiazem HCl (Cardizem) 60 mg Q8H ORAL 07/24/17 08:00 08/23/17 07:59 07/24/17 10:03 Furosemide (Lasix) 40 mg EVERY 8 HOURS IV 07/22/17 22:00 08/21/17 21:59 07/24/17 06:17 Gabapentin (Neurontin) 300 mg BEDTIME ORAL 07/23/17 21:00 08/22/17 20:59 07/23/17 21:12 Insulin Aspart (NovoLOG) BEFORE MEALS AND HS SUBQ 07/23/17 06:30 08/22/17 06:29 07/24/17 06:19 Ondansetron HCl (Zofran) 4 mg Q6H PRN IVP Nausea & Vomiting 07/22/17 22:00 08/21/17 21:59 Piperacillin Sod/ Tazobactam Sod 3.375 gm/Dextrose 55 ml @ 13.75 mls/ hr Q12H IVPB 07/23/17 15:00 07/30/17 14:59 07/24/17 03:04 Polyethylene Glycol (Miralax) 17 gm DAILYPRN PRN ORAL Constipation 07/22/17 22:00 08/21/17 21:59 Promethazine HCl/ Codeine (Phenergan with Codeine) 5 ml Q4H PRN ORAL For Cough 07/23/17 12:15 08/22/17 12:14 Tamsulosin HCl (Flomax) 0.4 mg BEDTIME ORAL 07/23/17 21:00 08/22/17 20:59 07/23/17 21:12 Temazepam (Restoril) 15 mg HSPRN PRN ORAL Insomnia 07/22/17 22:00 07/29/17 21:59 Vancomycin HCl (Vanco rx to dose) 1 ea DAILYPRN PRN MISC Per rx protocol 07/23/17 13:15 08/22/17 13:14 Vancomycin HCl/ Dextrose 250 ml @ 166.667 mls/hr Q24H IVPB 07/23/17 16:30 07/28/17 16:29 07/23/17 16:07 BRIAN HERNANDEZ Jul 24, 2017 10:21
[2017-07-24 11:45] VITALS: BP 114/69
--- NOTE | 2017-07-24 12:11 | Internal Med Progress Note ---
Subjective Date of Service: Jul 24, 2017 Physician Name LacieMaryanne Attending Physician Bruno Serrato MD Current Medications Medications (Trade) Dose Ordered Sig/Dragan Route PRN Reason Start Time Stop Time Status Last Admin Dose Admin Acetaminophen (Tylenol) 650 mg Q4H PRN ORAL Fever 07/22/17 22:00 08/21/17 21:59 Acetaminophen/ Hydrocodone Bitart (Beemer 5/325) 1 tab Q6H PRN ORAL For Pain 07/22/17 22:00 07/29/17 21:59 07/24/17 10:01 Albuterol/ Ipratropium (Albuterol/ Ipratropium) 3 ml EVERY 4 HOURS PRN HHN Shortness of Breath 07/22/17 22:00 07/27/17 21:59 Apixaban (Eliquis) 2.5 mg BID ORAL 07/23/17 18:00 08/22/17 17:59 07/24/17 10:00 Carvedilol (Coreg) 6.25 mg EVERY 12 HOURS ORAL 07/23/17 09:00 08/22/17 08:59 07/24/17 09:59 Dextrose (Dextrose 50%) STAT PRN IV Hypoglycemia 07/22/17 22:00 08/21/17 21:59 Diltiazem HCl (Cardizem) 60 mg Q8H ORAL 07/24/17 08:00 08/23/17 07:59 07/24/17 10:03 Furosemide (Lasix) 80 mg EVERY 8 HOURS IV 07/24/17 14:00 08/23/17 13:59 Gabapentin (Neurontin) 300 mg BEDTIME ORAL 07/23/17 21:00 08/22/17 20:59 07/23/17 21:12 Insulin Aspart (NovoLOG) BEFORE MEALS AND HS SUBQ 07/23/17 06:30 08/22/17 06:29 07/24/17 11:56 Ondansetron HCl (Zofran) 4 mg Q6H PRN IVP Nausea & Vomiting 07/22/17 22:00 08/21/17 21:59 Piperacillin Sod/ Tazobactam Sod 3.375 gm/Dextrose 55 ml @ 13.75 mls/ hr Q12H IVPB 07/23/17 15:00 07/30/17 14:59 07/24/17 03:04 Polyethylene Glycol (Miralax) 17 gm DAILYPRN PRN ORAL Constipation 07/22/17 22:00 08/21/17 21:59 Promethazine HCl/ Codeine (Phenergan with Codeine) 5 ml Q4H PRN ORAL For Cough 07/23/17 12:15 08/22/17 12:14 Tamsulosin HCl (Flomax) 0.4 mg BEDTIME ORAL 07/23/17 21:00 08/22/17 20:59 07/23/17 21:12 Temazepam (Restoril) 15 mg HSPRN PRN ORAL Insomnia 07/22/17 22:00 07/29/17 21:59 Vancomycin HCl (Vanco rx to dose) 1 ea DAILYPRN PRN MISC Per rx protocol 07/23/17 13:15 08/22/17 13:14 Vancomycin HCl/ Dextrose 250 ml @ 166.667 mls/hr Q24H IVPB 07/23/17 16:30 07/28/17 16:29 07/23/17 16:07 Allergies: Coded Allergies: No Known Allergies (Unverified , 04/25/17) ROS Limited/Unobtainable: No Constitutional: Reports: no symptoms HEENT: Reports: no symptoms Cardiovascular: Reports: no symptoms Respiratory: Reports: shortness of breath Gastrointestinal/Abdominal: Reports: no symptoms Genitourinary: Reports: no symptoms Neurologic/Psychiatric: Reports: no symptoms Subjective 66 YO M admitted with shortness of breath. Now atrial fibrillation with rapid ventricular rate. Large post void residual overnight requiring johnson. Await urology consult. Cover for Int Jonathan-Dr Serrato. Objective Last Vital Signs Date Time Temp Pulse Resp B/P (MAP) Pulse Ox O2 Delivery O2 Flow Rate FiO2 07/24/17 11:45 97.2 73 20 114/69 99 Nasal Cannula 3.0 07/24/17 06:52 28 General Appearance: WD/WN, no apparent distress, alert EENT: PERRL/EOMI, normal ENT inspection, TMs normal Neck: non-tender, normal alignment, supple, normal inspection Cardiovascular: normal peripheral pulses, no gallop/murmur, no JVD, irregularly irregular Respiratory/Chest: chest wall non-tender, lungs clear, normal breath sounds, no respiratory distress, no accessory muscle use Abdomen: normal bowel sounds, non tender, soft, no organomegaly, no mass Extremities: normal range of motion 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, no motor/sensory deficits Skin: normal pigmentation, warm/dry Laboratory Tests Test 07/24/17 05:10 White Blood Count 7.7 K/UL (4.8-10.8) Red Blood Count 2.93 M/UL (4.70-6.10) L Hemoglobin 8.8 G/DL (14.2-18.0) L Hematocrit 26.9 % (42.0-52.0) L Mean Corpuscular Volume 92 FL (80-99) Mean Corpuscular Hemoglobin 30.2 PG (27.0-31.0) Mean Corpuscular Hemoglobin Concent 32.8 G/DL (32.0-36.0) Red Cell Distribution Width 18.2 % (11.6-14.8) H Platelet Count 173 K/UL (150-450) Mean Platelet Volume 7.2 FL (6.5-10.1) Neutrophils (%) (Auto) 62.9 % (45.0-75.0) Lymphocytes (%) (Auto) 18.8 % (20.0-45.0) L Monocytes (%) (Auto) 15.2 % (1.0-10.0) H Eosinophils (%) (Auto) 1.7 % (0.0-3.0) Basophils (%) (Auto) 1.4 % (0.0-2.0) Sodium Level 139 MMOL/L (136-145) Potassium Level 5.0 MMOL/L (3.5-5.1) Chloride Level 106 MMOL/L (98-107) Carbon Dioxide Level 23 MMOL/L (21-32) Anion Gap 10 mmol/L (5-15) Blood Urea Nitrogen 58 mg/dL (7-18) H Creatinine 2.7 MG/DL (0.55-1.30) H Estimat Glomerular Filtration Rate 28.8 mL/min (>60) Glucose Level 129 MG/DL (74-106) H Calcium Level 8.6 MG/DL (8.5-10.1) Magnesium Level 2.3 MG/DL (1.8-2.4) Troponin I 0.026 ng/mL (0.000-0.056) C-Reactive Protein, Quantitative 1.7 mg/dL (0.00-0.90) H Pro-B-Type Natriuretic Peptide 5353 pg/mL (0-125) H Microbiology Date/Time Source Procedure Growth Status 07/22/17 19:30 Blood Blood Culture - Preliminary NO GROWTH AFTER 24 HOURS Resulted 07/22/17 19:25 Blood Blood Culture - Preliminary NO GROWTH AFTER 24 HOURS Resulted Intake and Output 07/24/17 07/25/17 19:00 07:00 Intake Total 120 ml Balance 120 ml Intake Oral 120 ml Assessment/Plan Problem List: (1) Urinary retention Assessment & Plan: Continue johnson; await urology consult. (2) Hydronephrosis (3) SOB (shortness of breath) (4) Atrial fibrillation with rapid ventricular response Assessment & Plan: Continue cardizem and eliquis. See cardiology consult note. (5) CHF (congestive heart failure) (6) Diabetes mellitus, type II Assessment & Plan: Continue novolog sliding scale. (7) HTN (hypertension) (8) CHF exacerbation (9) Hypercholesteremia (10) Renal failure Assessment & Plan: ?urinary retention? Await nephrology consult. 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
--- NOTE | 2017-07-24 14:56 | Cardiology Progress Note ---
Assessment/Plan Assessment/Plan 1. Paroxysmal episodes of atrial fibrillation with present recurrence. 2. Diabetes. 3. Hypertension. 4. Right-sided pulmonary infiltrate and effusion. 5. Chronic kidney disease now back to sinus converted as expected ahsort time ago i on noac adn coreg adn cardizem off nifedipine bp seem ok but will observe may need to down grade dose Subjective Cardiovascular: Denies: chest pain, irregular heart rate, lightheadedness Respiratory: Denies: cough, shortness of breath, SOB with excertion Gastrointestinal/Abdominal: Denies: abdominal pain Genitourinary: Denies: burning Objective Last 24 Hour Vital Signs Date Time Temp Pulse Resp B/P (MAP) Pulse Ox O2 Delivery O2 Flow Rate FiO2 07/24/17 11:45 97.2 73 20 114/69 99 Nasal Cannula 3.0 07/24/17 10:03 67 116/71 07/24/17 09:59 67 116/71 07/24/17 08:38 97.0 64 18 100/62 96 Nasal Cannula 3.0 07/24/17 06:52 93 20 Nasal Cannula 2.0 28 07/24/17 06:52 Nasal Cannula 2.0 28 07/24/17 06:52 95 Nasal Cannula 2.0 28 07/24/17 04:01 Nasal Cannula 3.0 07/24/17 04:00 97.3 100 22 137/78 93 Nasal Cannula 3.0 28 07/24/17 04:00 98 07/24/17 04:00 97.9 89 20 129/69 98 Room Air 07/24/17 00:19 101 137/78 07/24/17 00:01 Nasal Cannula 3.0 07/24/17 00:00 97.3 100 22 137/74 93 Room Air 07/24/17 00:00 114 07/23/17 22:00 97.9 92 23 140/68 94 Room Air 07/23/17 21:11 89 140/68 07/23/17 20:50 Nasal Cannula 3.0 07/23/17 20:49 97.9 92 23 127/75 94 Nasal Cannula 3.0 07/23/17 20:00 106 07/23/17 20:00 97.9 115 20 138/75 Nasal Cannula 2.0 28 07/23/17 20:00 97.9 115 20 138/75 94 07/23/17 19:45 94 Nasal Cannula 2.0 28 07/23/17 19:45 118 20 Nasal Cannula 2.0 28 07/23/17 19:45 Nasal Cannula 2.0 28 07/23/17 17:55 115 138/75 07/23/17 17:52 Nasal Cannula 3.0 32 07/23/17 16:18 97.9 115 18 138/75 99 Nasal Cannula 2.0 07/23/17 16:00 106 07/23/17 15:07 97 Nasal Cannula 3.0 32 07/23/17 15:00 98 24 Room Air 21 07/23/17 15:00 85 Room Air 21 General Appearance: alert Neck: supple Cardiovascular: normal rate, regular rhythm Respiratory/Chest: lungs clear Abdomen: normal bowel sounds, non tender, soft Extremities: trace edema - left leg , right bka Intake and Output 07/24/17 07/25/17 19:00 07:00 Intake Total 120 ml Balance 120 ml Intake Oral 120 ml Laboratory Tests Test 07/24/17 05:10 White Blood Count 7.7 K/UL (4.8-10.8) Red Blood Count 2.93 M/UL (4.70-6.10) L Hemoglobin 8.8 G/DL (14.2-18.0) L Hematocrit 26.9 % (42.0-52.0) L Mean Corpuscular Volume 92 FL (80-99) Mean Corpuscular Hemoglobin 30.2 PG (27.0-31.0) Mean Corpuscular Hemoglobin Concent 32.8 G/DL (32.0-36.0) Red Cell Distribution Width 18.2 % (11.6-14.8) H Platelet Count 173 K/UL (150-450) Mean Platelet Volume 7.2 FL (6.5-10.1) Neutrophils (%) (Auto) 62.9 % (45.0-75.0) Lymphocytes (%) (Auto) 18.8 % (20.0-45.0) L Monocytes (%) (Auto) 15.2 % (1.0-10.0) H Eosinophils (%) (Auto) 1.7 % (0.0-3.0) Basophils (%) (Auto) 1.4 % (0.0-2.0) Sodium Level 139 MMOL/L (136-145) Potassium Level 5.0 MMOL/L (3.5-5.1) Chloride Level 106 MMOL/L (98-107) Carbon Dioxide Level 23 MMOL/L (21-32) Anion Gap 10 mmol/L (5-15) Blood Urea Nitrogen 58 mg/dL (7-18) H Creatinine 2.7 MG/DL (0.55-1.30) H Estimat Glomerular Filtration Rate 28.8 mL/min (>60) Glucose Level 129 MG/DL (74-106) H Calcium Level 8.6 MG/DL (8.5-10.1) Magnesium Level 2.3 MG/DL (1.8-2.4) Troponin I 0.026 ng/mL (0.000-0.056) C-Reactive Protein, Quantitative 1.7 mg/dL (0.00-0.90) H Pro-B-Type Natriuretic Peptide 5353 pg/mL (0-125) H Microbiology Date/Time Source Procedure Growth Status 07/22/17 19:30 Blood Blood Culture - Preliminary NO GROWTH AFTER 24 HOURS Resulted 07/22/17 19:25 Blood Blood Culture - Preliminary NO GROWTH AFTER 24 HOURS Resulted 07/23/17 18:00 Sputum Gram Stain - Final Resulted 07/23/17 18:00 Sputum Sputum Culture Pending Resulted SIDDHARTHA MADERA Jul 24, 2017 14:56
[2017-07-24 16:04] VITALS: BP 138/80
[2017-07-24] MEDS: Vancomycin 1250mg/D5W 250ml 250 ML IVPB SCH (17:41)
[2017-07-24] MEDS: Dyna-Hex 2% Top Sol 2oz TOPIC SCH (17:59)
[2017-07-24 20:00] VITALS: BP 149/69
[2017-07-24] MEDS: Tamsulosin 0.4mg cap ORAL SCH (20:53)
[2017-07-25] VITALS (7 sets, daily range): BP systolic 140–169; BP diastolic 70–99
[2017-07-25] MEDS: dilTIAZem HCl 60mg tab ORAL SCH ×4 (00:29→23:27)
[2017-07-25] MEDS: Piperacillin/Tazobactam 3.375 GM in D5W 55 ML IVPB SCH ×2 (02:58→15:39)
[2017-07-25 06:22] LABS: BASOPHILS % (AUTO) 1.3 % (0.0-2.0); EOSINOPHILS % (AUTO) 2.4 % (0.0-3.0); LYMPHOCYTES % (AUTO) 15.4 % (20.0-45.0); MEAN CORPUSCULAR HEMOGLOBIN 29.4 PG (27.0-31.0); MEAN CORPUSCULAR HGB CONC 31.8 G/DL (32.0-36.0); MEAN CORPUSCULAR VOLUME 92 FL (80-99); MEAN PLATELET VOLUME 6.7 FL (6.5-10.1); MONOCYTES % (AUTO) 17.3 % (1.0-10.0); NEUTROPHILS % (AUTO) 63.7 % (45.0-75.0); PLATELET COUNT 215 K/UL (150-450); RED BLOOD COUNT 3.19 M/UL (4.70-6.10); RED CELL DISTRIBUTION WIDTH 18.7 % (11.6-14.8); WHITE BLOOD COUNT 8.4 K/UL (4.8-10.8)
[2017-07-25] MEDS: NovoLOG Insulin Flexpen SUBQ SCH ×4 (06:26→20:22)
[2017-07-25 07:22] LABS: ALANINE AMINOTRANSFERASE 47 U/L (12-78); ALBUMIN/GLOBULIN RATIO 0.6 (1.0-2.7); ANION GAP 8 mmol/L (5-15); ASPARTATE AMINO TRANSFERASE 14 U/L (15-37); CALCIUM 8.6 MG/DL (8.5-10.1); CARBON DIOXIDE 27 MMOL/L (21-32); CHLORIDE 105 MMOL/L (98-107); CHOLESTEROL 127 MG/DL (< 200); GLOMERULAR FILTRATION RATE 25.5 mL/min (>60); SODIUM 140 MMOL/L (136-145); THYROID STIMULATING HORMONE 1.327 uiU/mL (0.358-3.740); TOTAL PROTEIN 6.7 G/DL (6.4-8.2)
[2017-07-25 07:35] LABS: CRP QUANT 1.2 mg/dL (0.00-0.90); PHOSPHORUS 5.7 MG/DL (2.5-4.9); URIC ACID 7.1 MG/DL (2.6-7.2)
[2017-07-25] MEDS: Eliquis 2.5mg tablet ORAL SCH ×2 (08:34→17:25)
[2017-07-25] MEDS: Carvedilol 6.25mg Tab ORAL SCH ×2 (08:35→20:17)
--- NOTE | 2017-07-25 09:30 | Infectious Diseases Prog Note ---
Assessment/Plan Assessment/Plan Abx: Levaquin x1 07/22 Vanco/Zosyn 07/23- Assesment: SOB- possibly multifactorial: combination of acute CHF exacerbation and possible PNA (HCAP) -CXR: interim development of interstitial congestion,right-sided airspace consolidation/edema, and right-sided pleural effusion -sp cx Normal mildred to date -Bcx NTD Afebrile, no leukocytosis Renal insufficiency, worsening -Renal US: Echogenic kidneys with bilateral hydronephrosis.Large post void residual urine in the bladder.Small right pleural effusion.Bilateral renal cysts. Recent Right BKA stump wound infection with Acute OM s/p revision 06/09; on Rx; decreasing inflammatory markers -OR findings: The right [id number] amputation stump had prominent edema. The severed bone appeared healthy. The circulation appeared adequate. The posterior tibial vessels were patent as were the anterior tibial. -path: acute on chronic OM -superficial wound cx: +4 Serratia Marcecens (S. Ceftriaxone, levo/cipro, Bactrim, Zosyn), +4 E. cloace (S. Ceftriaxone, levo/Cipro, Zosyn; R bactrim); possible that these represents colonizer as wound cx was superficial and likely pathogens could still be Strep sp and MSSA. -s/p admission in [facility] in March for stump infection s/p 4 weeks of PO abx (pt unsure of abx) -06/03 ESR 116, CRP 6.1; 06/12 ESR 113, CRP >12; 07/24 CRP 1.2, ESR 82 Hyperlipidemia. History of hypoglycemia. Hypertension. Diabetes. Atrial fibrillation. Chronic anemia Cachexia Plan: -D/C IV Vancomycin #3 and continue Zosyn #3/5-7 pending sputum cx for PNA; today is last day of OM tx - expect able to switch to oral abx upon discharge, no further IV abx for OM is required upon discharge -s/p Ertapenem 06/11-07/22 -s/p 2d Zosyn 06/11 -s/p 7d Ceftriaxone 06/09 -s/p 5d IV Vanco, 4d Zosyn 06/03 -f/u cx -Monitor CBC/BMP, temperatures Thank you for this consultation. Will continue to follow along with you. Discussed with RN Subjective Allergies: Coded Allergies: No Known Allergies (Unverified , 04/25/17) Subjective afebrile no leukocytosis Bcx NTD Cr worsening Objective Vital Signs Last 24 Hour Vital Signs Date Time Temp Pulse Resp B/P (MAP) Pulse Ox O2 Delivery O2 Flow Rate FiO2 07/25/17 08:35 66 160/99 07/25/17 08:34 66 160/99 07/25/17 08:10 97.7 66 20 160/99 100 Nasal Cannula 3.0 07/25/17 08:02 100 Nasal Cannula 3.0 32 07/25/17 08:02 Nasal Cannula 3.0 32 07/25/17 04:01 19 100 Nasal Cannula 3.0 07/25/17 04:00 112 07/25/17 04:00 97.7 92 19 140/79 100 07/25/17 00:29 68 164/85 07/25/17 00:00 68 07/25/17 00:00 98.7 73 18 156/87 99 Nasal Cannula 3.0 07/24/17 20:09 Nasal Cannula 3.0 32 07/24/17 20:09 97 Nasal Cannula 3.0 32 07/24/17 20:01 18 99 Nasal Cannula 3.0 07/24/17 20:00 98.9 67 18 149/69 99 Nasal Cannula 3.0 07/24/17 20:00 69 07/24/17 17:41 61 138/80 07/24/17 16:04 97.7 61 20 138/80 98 Nasal Cannula 3.0 07/24/17 16:00 65 07/24/17 16:00 Nasal Cannula 3.0 07/24/17 14:42 45 07/24/17 12:00 83 07/24/17 12:00 Nasal Cannula 3.0 07/24/17 11:45 97.2 73 20 114/69 99 Nasal Cannula 3.0 07/24/17 10:03 67 116/71 07/24/17 09:59 67 116/71 Height (Feet): 6 Height (Inches): 2.00 Weight (Pounds): 164 Objective General Appearance: cachetic HEENT: normocephalic, atraumatic Neck: non-tender, supple Respiratory/Chest: chest wall non-tender, bibasilar crackles Breasts: no masses Cardiovascular/Chest: normal rate Abdomen: normal bowel sounds, soft EXT: R stump banded. view wound care pictures,. stump with sutures in place, no signs of infection. Microbiology Date/Time Source Procedure Growth Status 07/22/17 19:30 Blood Blood Culture - Preliminary NO GROWTH AFTER 48 HOURS Resulted 07/22/17 19:25 Blood Blood Culture - Preliminary NO GROWTH AFTER 48 HOURS Resulted 07/23/17 18:00 Sputum Gram Stain - Final Resulted 07/23/17 18:00 Sputum Sputum Culture - Preliminary NORMAL UPPER RESPIRATORY MILDRED AT 24 ... Resulted 07/22/17 23:00 Nasal Nares MRSA Culture - Final NO METHICILLIN RESISTANT STAPH AUREUS... Complete 07/22/17 23:00 Rectum VRE Culture - Final Enterococcus Faecium - Vre Complete Laboratory Tests Test 07/24/17 21:45 07/25/17 05:55 Troponin I 0.024 ng/mL (0.000-0.056) White Blood Count 8.4 K/UL (4.8-10.8) Red Blood Count 3.19 M/UL (4.70-6.10) L Hemoglobin 9.4 G/DL (14.2-18.0) L Hematocrit 29.5 % (42.0-52.0) L Mean Corpuscular Volume 92 FL (80-99) Mean Corpuscular Hemoglobin 29.4 PG (27.0-31.0) Mean Corpuscular Hemoglobin Concent 31.8 G/DL (32.0-36.0) L Red Cell Distribution Width 18.7 % (11.6-14.8) H Platelet Count 215 K/UL (150-450) Mean Platelet Volume 6.7 FL (6.5-10.1) Neutrophils (%) (Auto) 63.7 % (45.0-75.0) Lymphocytes (%) (Auto) 15.4 % (20.0-45.0) L Monocytes (%) (Auto) 17.3 % (1.0-10.0) H Eosinophils (%) (Auto) 2.4 % (0.0-3.0) Basophils (%) (Auto) 1.3 % (0.0-2.0) Sodium Level 140 MMOL/L (136-145) Potassium Level 5.0 MMOL/L (3.5-5.1) Chloride Level 105 MMOL/L (98-107) Carbon Dioxide Level 27 MMOL/L (21-32) Anion Gap 8 mmol/L (5-15) Blood Urea Nitrogen 60 mg/dL (7-18) H Creatinine 3.0 MG/DL (0.55-1.30) H Estimat Glomerular Filtration Rate 25.5 mL/min (>60) Glucose Level 252 MG/DL (74-106) #H Uric Acid 7.1 MG/DL (2.6-7.2) Calcium Level 8.6 MG/DL (8.5-10.1) Phosphorus Level 5.7 MG/DL (2.5-4.9) H Magnesium Level 2.0 MG/DL (1.8-2.4) Total Bilirubin 0.4 MG/DL (0.2-1.0) Gamma Glutamyl Transpeptidase 54 U/L (5-85) Aspartate Amino Transf (AST/SGOT) 14 U/L (15-37) L Alanine Aminotransferase (ALT/SGPT) 47 U/L (12-78) Alkaline Phosphatase 142 U/L (46-116) H Total Creatine Kinase 64 U/L (26-308) C-Reactive Protein, Quantitative 1.2 mg/dL (0.00-0.90) H Pro-B-Type Natriuretic Peptide 3837 pg/mL (0-125) H Total Protein 6.7 G/DL (6.4-8.2) Albumin 2.6 G/DL (3.4-5.0) L Globulin 4.1 g/dL Albumin/Globulin Ratio 0.6 (1.0-2.7) L Triglycerides Level 32 MG/DL (30-150) Cholesterol Level 127 MG/DL (< 200) LDL Cholesterol 63 mg/dL (<100) HDL Cholesterol 63 MG/DL (40-60) H Cholesterol/HDL Ratio 2.0 (3.3-4.4) L Thyroid Stimulating Hormone (TSH) 1.327 uiU/mL (0.358-3.740) Current Medications Medications (Trade) Dose Ordered Sig/Dragan Route PRN Reason Start Time Stop Time Status Last Admin Dose Admin Acetaminophen (Tylenol) 650 mg Q4H PRN ORAL Fever 07/22/17 22:00 08/21/17 21:59 Acetaminophen/ Hydrocodone Bitart (Candor 5/325) 1 tab Q6H PRN ORAL For Pain 07/22/17 22:00 07/29/17 21:59 07/24/17 20:54 Albuterol/ Ipratropium (Albuterol/ Ipratropium) 3 ml EVERY 4 HOURS PRN HHN Shortness of Breath 07/22/17 22:00 07/27/17 21:59 Apixaban (Eliquis) 2.5 mg BID ORAL 07/23/17 18:00 08/22/17 17:59 07/25/17 08:34 Carvedilol (Coreg) 6.25 mg EVERY 12 HOURS ORAL 07/23/17 09:00 08/22/17 08:59 07/25/17 08:35 Chlorhexidine Gluconate (Esmer-Hex 2%) 1 applic DAILY@2000 TOPIC 07/24/17 17:45 08/23/17 17:44 07/24/17 17:59 Dextrose (Dextrose 50%) STAT PRN IV Hypoglycemia 07/22/17 22:00 08/21/17 21:59 Diltiazem HCl (Cardizem) 60 mg Q8H ORAL 07/24/17 08:00 08/23/17 07:59 07/25/17 08:34 Furosemide (Lasix) 80 mg EVERY 8 HOURS IV 07/24/17 14:00 08/23/17 13:59 07/25/17 06:11 Gabapentin (Neurontin) 300 mg BEDTIME ORAL 07/23/17 21:00 08/22/17 20:59 07/24/17 20:53 Insulin Aspart (NovoLOG) BEFORE MEALS AND HS SUBQ 07/23/17 06:30 08/22/17 06:29 07/25/17 06:26 Ondansetron HCl (Zofran) 4 mg Q6H PRN IVP Nausea & Vomiting 07/22/17 22:00 08/21/17 21:59 Piperacillin Sod/ Tazobactam Sod 3.375 gm/Dextrose 55 ml @ 13.75 mls/ hr Q12H IVPB 07/23/17 15:00 07/30/17 14:59 07/25/17 02:58 Polyethylene Glycol (Miralax) 17 gm DAILYPRN PRN ORAL Constipation 07/22/17 22:00 08/21/17 21:59 Promethazine HCl/ Codeine (Phenergan with Codeine) 5 ml Q4H PRN ORAL For Cough 07/23/17 12:15 08/22/17 12:14 Tamsulosin HCl (Flomax) 0.4 mg BEDTIME ORAL 07/23/17 21:00 08/22/17 20:59 07/24/17 20:53 Temazepam (Restoril) 15 mg HSPRN PRN ORAL Insomnia 07/22/17 22:00 07/29/17 21:59 Vancomycin HCl (Vanco rx to dose) 1 ea DAILYPRN PRN MISC Per rx protocol 07/23/17 13:15 08/22/17 13:14 Vancomycin HCl/ Dextrose 250 ml @ 166.667 mls/hr Q24H IVPB 07/23/17 16:30 07/28/17 16:29 07/24/17 17:41 Liz Guevara M.D. Jul 25, 2017 09:30
--- NOTE | 2017-07-25 09:32 | Consultation ---
Consult Note Consult Note asked to eval for worsening renal failure 66-year-old male presents ED complaining of shortness of breath. Started earlier today. Per EMS patient was wheezing. Patient denies history of asthma. Denies fevers or chills. Denies cough. Denies chest pain. Patient took assisted. No other aggravating relieving factors. Denies any other associated symptoms Past Medical History: DM, HTN Hx Cardiac Problems: Yes Hx Hypertension: Yes Hx Diabetes: Yes Hx Gastrointestinal Problems: Yes patient interviewed, examined- data reviewed Assessment/Plan admitted for respiratory distress, CHF vs Pneumonia right side Has DM h/o A fib acute renal failure on CRI now Cr 3 h/o bladder outlet obstruction) per AILYN in past Also due to DM and HTN, has 3+ Proteinuria anemia DM HTN R BKA stump wound infested now BLE pain severe protein calorie malnutrition Urinary retention due to bladder out let Obstruction Echo; Left ventricular ejection fraction estimated to be 60-65%. CXR: Since June 02, 2017, interim development of interstitial congestion, right-sided airspace consolidation/edema, and right-sided pleural effusion AILYN: Echogenic kidneys with bilateral hydronephrosis. Large post void residual urine in the bladder. Plan: Down on Lasix Up on Flomax Bladder scan stat Avoid nephrotoxics monitor renal parameters TYE TINAJERO Jul 25, 2017 09:32
[2017-07-25] MEDS ORDERED: Tamsulosin 0.4mg cap ORAL ONE (10:00)
[2017-07-25] MEDS ORDERED: Tubing IV Secondary IV ONE (10:26)
[2017-07-25] MEDS ORDERED: NS 275ml ONE (10:26)
--- NOTE | 2017-07-25 11:06 | Pulmonology Progress Note ---
Assessment/Plan Problems: (1) Respiratory distress (2) Pulmonary edema (3) Atrial fibrillation (4) Pneumonia (5) Right BKA infection Assessment/Plan all notes reviewed creatinine is up to 3 CXR from today reviewed, almost clearance of infiltrate/edema Urology called for bilateral hydronephrosis decrease lassix check electrolytes Renal consult appreciated awaiting Uro evaluation. Subjective ROS Limited/Unobtainable: No Constitutional: Reports: no symptoms HEENT: Repors: no symptoms Allergies: Coded Allergies: No Known Allergies (Unverified , 04/25/17) Objective Last 24 Hour Vital Signs Date Time Temp Pulse Resp B/P (MAP) Pulse Ox O2 Delivery O2 Flow Rate FiO2 07/25/17 08:35 66 160/99 07/25/17 08:34 66 160/99 07/25/17 08:10 97.7 66 20 160/99 100 Nasal Cannula 3.0 07/25/17 08:02 100 Nasal Cannula 3.0 32 07/25/17 08:02 Nasal Cannula 3.0 32 07/25/17 08:00 67 07/25/17 04:01 19 100 Nasal Cannula 3.0 07/25/17 04:00 112 07/25/17 04:00 97.7 92 19 140/79 100 07/25/17 00:29 68 164/85 07/25/17 00:00 68 07/25/17 00:00 98.7 73 18 156/87 99 Nasal Cannula 3.0 07/24/17 20:09 Nasal Cannula 3.0 32 07/24/17 20:09 97 Nasal Cannula 3.0 32 07/24/17 20:01 18 99 Nasal Cannula 3.0 07/24/17 20:00 98.9 67 18 149/69 99 Nasal Cannula 3.0 07/24/17 20:00 69 07/24/17 17:41 61 138/80 07/24/17 16:04 97.7 61 20 138/80 98 Nasal Cannula 3.0 07/24/17 16:00 65 07/24/17 16:00 Nasal Cannula 3.0 07/24/17 14:42 45 07/24/17 12:00 83 07/24/17 12:00 Nasal Cannula 3.0 07/24/17 11:45 97.2 73 20 114/69 99 Nasal Cannula 3.0 Intake and Output 07/25/17 07/26/17 19:00 07:00 Intake Total 480 ml Output Total 4 ml Balance 476 ml Intake Oral 480 ml Post Void Residual 4 ml Bladder Scan Volume Amount <10 ml General Appearance: cachetic HEENT: normocephalic, atraumatic Respiratory/Chest: chest wall non-tender, normal breath sounds Cardiovascular: normal peripheral pulses, normal rate Abdomen: normal bowel sounds, soft, non tender Extremities: no cyanosis Skin: no rash Neurologic/Psychiatric: [employer] II-XII grossly normal, no motor/sensory deficits Microbiology Date/Time Source Procedure Growth Status 07/22/17 19:30 Blood Blood Culture - Preliminary NO GROWTH AFTER 48 HOURS Resulted 07/22/17 19:25 Blood Blood Culture - Preliminary NO GROWTH AFTER 48 HOURS Resulted 07/23/17 18:00 Sputum Gram Stain - Final Resulted 07/23/17 18:00 Sputum Sputum Culture - Preliminary NORMAL UPPER RESPIRATORY JEFFREY AT 24 ... Resulted 07/22/17 23:00 Nasal Nares MRSA Culture - Final NO METHICILLIN RESISTANT STAPH AUREUS... Complete 07/22/17 23:00 Rectum VRE Culture - Final Enterococcus Faecium - Vre Complete Laboratory Tests 07/24/17 21:45: Troponin I 0.024 07/25/17 05:55: White Blood Count 8.4, Red Blood Count 3.19L, Hemoglobin 9.4L, Hematocrit 29.5L , Mean Corpuscular Volume 92, Mean Corpuscular Hemoglobin 29.4, Mean Corpuscular Hemoglobin Concent 31.8L, Red Cell Distribution Width 18.7H, Platelet Count 215, Mean Platelet Volume 6.7, Neutrophils (%) (Auto) 63.7, Lymphocytes (%) (Auto) 15.4L, Monocytes (%) (Auto) 17.3H, Eosinophils (%) (Auto ) 2.4, Basophils (%) (Auto) 1.3, Sodium Level 140, Potassium Level 5.0, Chloride Level 105, Carbon Dioxide Level 27, Anion Gap 8, Blood Urea Nitrogen 60H, Creatinine 3.0H, Estimat Glomerular Filtration Rate 25.5, Glucose Level 252 #H, Uric Acid 7.1, Calcium Level 8.6, Phosphorus Level 5.7H, Magnesium Level 2.0 , Total Bilirubin 0.4, Gamma Glutamyl Transpeptidase 54, Aspartate Amino Transf (AST/SGOT) 14L, Alanine Aminotransferase (ALT/SGPT) 47, Alkaline Phosphatase 142H, Total Creatine Kinase 64, C-Reactive Protein, Quantitative 1.2H, Pro-B- Type Natriuretic Peptide 3837H, Total Protein 6.7, Albumin 2.6L, Globulin 4.1, Albumin/Globulin Ratio 0.6L, Triglycerides Level 32, Cholesterol Level 127, LDL Cholesterol 63, HDL Cholesterol 63H, Cholesterol/HDL Ratio 2.0L, Thyroid Stimulating Hormone (TSH) 1.327 Current Medications Medications (Trade) Dose Ordered Sig/Dragan Route PRN Reason Start Time Stop Time Status Last Admin Dose Admin Acetaminophen (Tylenol) 650 mg Q4H PRN ORAL Fever 07/22/17 22:00 08/21/17 21:59 Acetaminophen/ Hydrocodone Bitart ([place] 5/325) 1 tab Q6H PRN ORAL For Pain 07/22/17 22:00 07/29/17 21:59 07/24/17 20:54 Albuterol/ Ipratropium (Albuterol/ Ipratropium) 3 ml EVERY 4 HOURS PRN HHN Shortness of Breath 07/22/17 22:00 07/27/17 21:59 Apixaban (Eliquis) 2.5 mg BID ORAL 07/23/17 18:00 08/22/17 17:59 07/25/17 08:34 Carvedilol (Coreg) 6.25 mg EVERY 12 HOURS ORAL 07/23/17 09:00 08/22/17 08:59 07/25/17 08:35 Chlorhexidine Gluconate (Esmer-Hex 2%) 1 applic DAILY@2000 TOPIC 07/24/17 17:45 08/23/17 17:44 07/24/17 17:59 Dextrose (Dextrose 50%) STAT PRN IV Hypoglycemia 07/22/17 22:00 08/21/17 21:59 Diltiazem HCl (Cardizem) 60 mg Q8H ORAL 07/24/17 08:00 08/23/17 07:59 07/25/17 08:34 Finasteride (Proscar) 5 mg DAILY ORAL 07/25/17 10:30 08/24/17 10:29 07/25/17 10:31 Furosemide (Lasix) 80 mg DAILY IV 07/26/17 09:00 08/23/17 13:59 Gabapentin (Neurontin) 300 mg BEDTIME ORAL 07/23/17 21:00 08/22/17 20:59 07/24/17 20:53 Insulin Aspart (NovoLOG) BEFORE MEALS AND HS SUBQ 07/23/17 06:30 08/22/17 06:29 07/25/17 06:26 Ondansetron HCl (Zofran) 4 mg Q6H PRN IVP Nausea & Vomiting 07/22/17 22:00 08/21/17 21:59 Piperacillin Sod/ Tazobactam Sod 3.375 gm/Dextrose 55 ml @ 13.75 mls/ hr Q12H IVPB 07/23/17 15:00 07/30/17 14:59 07/25/17 02:58 Polyethylene Glycol (Miralax) 17 gm DAILYPRN PRN ORAL Constipation 07/22/17 22:00 08/21/17 21:59 Promethazine HCl/ Codeine (Phenergan with Codeine) 5 ml Q4H PRN ORAL For Cough 07/23/17 12:15 08/22/17 12:14 Tamsulosin HCl (Flomax) 0.4 mg BID ORAL 07/25/17 18:00 08/22/17 20:59 Temazepam (Restoril) 15 mg HSPRN PRN ORAL Insomnia 07/22/17 22:00 07/29/17 21:59 BRIAN HERNANDEZ Jul 25, 2017 11:06
--- NOTE | 2017-07-25 13:08 | Diagnostic Imaging Report ---
Indication: DYSPNEA Technique: One view of the chest Comparison: 07/22/2017 Findings: Improved inspiration on the current exam. The heart is mildly enlarged. There is a left chest PICC again demonstrated. Infiltrates in the right mid and lower lung appear somewhat improved. Some hazy retrocardiac consolidation and indistinctness of left hemidiaphragm persists, may indicate a small amount of consolidation, atelectasis, and pleural fluid Impression: Improved but persistent right mid and lower lung infiltrates and pleural fluid Stable or perhaps slightly improved left basilar pleural and parenchymal disease
--- NOTE | 2017-07-25 13:22 | Internal Med Progress Note ---
Subjective Date of Service: Jul 25, 2017 Physician Name Maryanne Smalls Attending Physician Bruno Serrato MD Current Medications Medications (Trade) Dose Ordered Sig/Dragan Route PRN Reason Start Time Stop Time Status Last Admin Dose Admin Acetaminophen (Tylenol) 650 mg Q4H PRN ORAL Fever 07/22/17 22:00 08/21/17 21:59 Acetaminophen/ Hydrocodone Bitart ([place] 5/325) 1 tab Q6H PRN ORAL For Pain 07/22/17 22:00 07/29/17 21:59 07/24/17 20:54 Albuterol/ Ipratropium (Albuterol/ Ipratropium) 3 ml EVERY 4 HOURS PRN HHN Shortness of Breath 07/22/17 22:00 07/27/17 21:59 Apixaban (Eliquis) 2.5 mg BID ORAL 07/23/17 18:00 08/22/17 17:59 07/25/17 08:34 Carvedilol (Coreg) 6.25 mg EVERY 12 HOURS ORAL 07/23/17 09:00 08/22/17 08:59 07/25/17 08:35 Chlorhexidine Gluconate (Esmer-Hex 2%) 1 applic DAILY@2000 TOPIC 07/24/17 17:45 08/23/17 17:44 07/24/17 17:59 Dextrose (Dextrose 50%) STAT PRN IV Hypoglycemia 07/22/17 22:00 08/21/17 21:59 Diltiazem HCl (Cardizem) 60 mg Q8H ORAL 07/24/17 08:00 08/23/17 07:59 07/25/17 08:34 Finasteride (Proscar) 5 mg DAILY ORAL 07/25/17 10:30 08/24/17 10:29 07/25/17 10:31 Furosemide (Lasix) 80 mg DAILY IV 07/26/17 09:00 08/23/17 13:59 Gabapentin (Neurontin) 300 mg BEDTIME ORAL 07/23/17 21:00 08/22/17 20:59 07/24/17 20:53 Insulin Aspart (NovoLOG) BEFORE MEALS AND HS SUBQ 07/23/17 06:30 08/22/17 06:29 07/25/17 11:47 Ondansetron HCl (Zofran) 4 mg Q6H PRN IVP Nausea & Vomiting 07/22/17 22:00 08/21/17 21:59 Piperacillin Sod/ Tazobactam Sod 3.375 gm/Dextrose 55 ml @ 13.75 mls/ hr Q12H IVPB 07/23/17 15:00 07/30/17 14:59 07/25/17 02:58 Polyethylene Glycol (Miralax) 17 gm DAILYPRN PRN ORAL Constipation 07/22/17 22:00 08/21/17 21:59 Promethazine HCl/ Codeine (Phenergan with Codeine) 5 ml Q4H PRN ORAL For Cough 07/23/17 12:15 08/22/17 12:14 Tamsulosin HCl (Flomax) 0.4 mg BID ORAL 07/25/17 18:00 08/22/17 20:59 Temazepam (Restoril) 15 mg HSPRN PRN ORAL Insomnia 07/22/17 22:00 07/29/17 21:59 Allergies: Coded Allergies: No Known Allergies (Unverified , 04/25/17) ROS Limited/Unobtainable: No Constitutional: Reports: no symptoms HEENT: Reports: no symptoms Cardiovascular: Reports: no symptoms Respiratory: Reports: shortness of breath Gastrointestinal/Abdominal: Reports: no symptoms Genitourinary: Reports: no symptoms Neurologic/Psychiatric: Reports: no symptoms Subjective 66 YO M admitted with shortness of breath. Now atrial fibrillation with rapid ventricular rate. Large post void residual overnight requiring johnson. Await urology consult. Cover for Int Jonathan-Dr Serrato. Objective Last Vital Signs Date Time Temp Pulse Resp B/P (MAP) Pulse Ox O2 Delivery O2 Flow Rate FiO2 07/25/17 11:35 96.8 62 20 141/70 100 Nasal Cannula 3.0 07/25/17 08:02 32 Laboratory Tests Test 07/24/17 21:45 07/25/17 05:55 Troponin I 0.024 ng/mL (0.000-0.056) White Blood Count 8.4 K/UL (4.8-10.8) Red Blood Count 3.19 M/UL (4.70-6.10) L Hemoglobin 9.4 G/DL (14.2-18.0) L Hematocrit 29.5 % (42.0-52.0) L Mean Corpuscular Volume 92 FL (80-99) Mean Corpuscular Hemoglobin 29.4 PG (27.0-31.0) Mean Corpuscular Hemoglobin Concent 31.8 G/DL (32.0-36.0) L Red Cell Distribution Width 18.7 % (11.6-14.8) H Platelet Count 215 K/UL (150-450) Mean Platelet Volume 6.7 FL (6.5-10.1) Neutrophils (%) (Auto) 63.7 % (45.0-75.0) Lymphocytes (%) (Auto) 15.4 % (20.0-45.0) L Monocytes (%) (Auto) 17.3 % (1.0-10.0) H Eosinophils (%) (Auto) 2.4 % (0.0-3.0) Basophils (%) (Auto) 1.3 % (0.0-2.0) Sodium Level 140 MMOL/L (136-145) Potassium Level 5.0 MMOL/L (3.5-5.1) Chloride Level 105 MMOL/L (98-107) Carbon Dioxide Level 27 MMOL/L (21-32) Anion Gap 8 mmol/L (5-15) Blood Urea Nitrogen 60 mg/dL (7-18) H Creatinine 3.0 MG/DL (0.55-1.30) H Estimat Glomerular Filtration Rate 25.5 mL/min (>60) Glucose Level 252 MG/DL (74-106) #H Uric Acid 7.1 MG/DL (2.6-7.2) Calcium Level 8.6 MG/DL (8.5-10.1) Phosphorus Level 5.7 MG/DL (2.5-4.9) H Magnesium Level 2.0 MG/DL (1.8-2.4) Total Bilirubin 0.4 MG/DL (0.2-1.0) Gamma Glutamyl Transpeptidase 54 U/L (5-85) Aspartate Amino Transf (AST/SGOT) 14 U/L (15-37) L Alanine Aminotransferase (ALT/SGPT) 47 U/L (12-78) Alkaline Phosphatase 142 U/L (46-116) H Total Creatine Kinase 64 U/L (26-308) C-Reactive Protein, Quantitative 1.2 mg/dL (0.00-0.90) H Pro-B-Type Natriuretic Peptide 3837 pg/mL (0-125) H Total Protein 6.7 G/DL (6.4-8.2) Albumin 2.6 G/DL (3.4-5.0) L Globulin 4.1 g/dL Albumin/Globulin Ratio 0.6 (1.0-2.7) L Triglycerides Level 32 MG/DL (30-150) Cholesterol Level 127 MG/DL (< 200) LDL Cholesterol 63 mg/dL (<100) HDL Cholesterol 63 MG/DL (40-60) H Cholesterol/HDL Ratio 2.0 (3.3-4.4) L Thyroid Stimulating Hormone (TSH) 1.327 uiU/mL (0.358-3.740) Microbiology Date/Time Source Procedure Growth Status 07/22/17 19:30 Blood Blood Culture - Preliminary NO GROWTH AFTER 48 HOURS Resulted 07/22/17 19:25 Blood Blood Culture - Preliminary NO GROWTH AFTER 48 HOURS Resulted 07/23/17 18:00 Sputum Gram Stain - Final Resulted 07/23/17 18:00 Sputum Sputum Culture - Preliminary NORMAL UPPER RESPIRATORY JEFFREY AT 24 ... Resulted 07/22/17 23:00 Nasal Nares MRSA Culture - Final NO METHICILLIN RESISTANT STAPH AUREUS... Complete 07/22/17 23:00 Rectum VRE Culture - Final Enterococcus Faecium - Vre Complete Intake and Output 07/25/17 07/26/17 19:00 07:00 Intake Total 480 ml Output Total 4 ml Balance 476 ml Intake Oral 480 ml Post Void Residual 4 ml Bladder Scan Volume Amount <10 ml Objective General Appearance: WD/WN, no apparent distress, alert EENT: PERRL/EOMI, normal ENT inspection, TMs normal Neck: non-tender, normal alignment, supple, normal inspection Cardiovascular: normal peripheral pulses, no gallop/murmur, no JVD, irregularly irregular Respiratory/Chest: chest wall non-tender, lungs clear, normal breath sounds, no respiratory distress, no accessory muscle use Abdomen: normal bowel sounds, non tender, soft, no organomegaly, no mass Extremities: normal range of motion Neurologic: [employer] II-XII grossly normal, no motor/sensory deficits Skin: normal pigmentation, warm/dry Assessment/Plan Problem List: (1) Urinary retention Assessment & Plan: Continue johnson; await urology consult. (2) Hydronephrosis (3) SOB (shortness of breath) (4) Atrial fibrillation with rapid ventricular response Assessment & Plan: Continue cardizem and eliquis. See cardiology consult note. (5) CHF (congestive heart failure) (6) Diabetes mellitus, type II Assessment & Plan: Continue novolog sliding scale. (7) HTN (hypertension) (8) CHF exacerbation (9) Hypercholesteremia (10) Renal failure Assessment & Plan: ?urinary retention? Await nephrology consult. (11) Right BKA infection (12) BPH (benign prostatic hyperplasia) Assessment & Plan: Continue flomax; await urology consult Status: not improved MARYANNE SMALLS Jul 25, 2017 13:22
--- NOTE | 2017-07-25 14:33 | Cardiology Progress Note ---
Assessment/Plan Assessment/Plan 1. Paroxysmal episodes of atrial fibrillation with present recurrence. 2. Diabetes. 3. Hypertension. 4. Right-sided pulmonary infiltrate and effusion. 5. Chronic kidney disease back and fort between sinus and afib i on noac and coreg and Cardizem off nifedipine bp seem elevated today may need addition of arb or acei Subjective Cardiovascular: Denies: chest pain, lightheadedness, palpitations Respiratory: Denies: shortness of breath Gastrointestinal/Abdominal: Denies: abdominal pain Genitourinary: Denies: burning Objective Last 24 Hour Vital Signs Date Time Temp Pulse Resp B/P (MAP) Pulse Ox O2 Delivery O2 Flow Rate FiO2 07/25/17 11:35 96.8 62 20 141/70 100 Nasal Cannula 3.0 07/25/17 08:35 66 160/99 07/25/17 08:34 66 160/99 07/25/17 08:10 97.7 66 20 160/99 100 Nasal Cannula 3.0 07/25/17 08:02 100 Nasal Cannula 3.0 32 07/25/17 08:02 Nasal Cannula 3.0 32 07/25/17 08:00 67 07/25/17 04:01 19 100 Nasal Cannula 3.0 07/25/17 04:00 112 07/25/17 04:00 97.7 92 19 140/79 100 07/25/17 00:29 68 164/85 07/25/17 00:00 68 07/25/17 00:00 98.7 73 18 156/87 99 Nasal Cannula 3.0 07/24/17 20:09 Nasal Cannula 3.0 32 07/24/17 20:09 97 Nasal Cannula 3.0 32 07/24/17 20:01 18 99 Nasal Cannula 3.0 07/24/17 20:00 98.9 67 18 149/69 99 Nasal Cannula 3.0 07/24/17 20:00 69 07/24/17 17:41 61 138/80 07/24/17 16:04 97.7 61 20 138/80 98 Nasal Cannula 3.0 07/24/17 16:00 65 07/24/17 16:00 Nasal Cannula 3.0 07/24/17 14:42 45 General Appearance: alert Neck: supple Cardiovascular: normal rate, regular rhythm Respiratory/Chest: lungs clear, normal breath sounds Abdomen: normal bowel sounds, non tender, soft Extremities: no swelling Intake and Output 07/25/17 07/26/17 19:00 07:00 Intake Total 730 ml Output Total 4 ml Balance 726 ml Intake Oral 730 ml Post Void Residual 4 ml Bladder Scan Volume Amount <10 ml Laboratory Tests Test 07/24/17 21:45 07/25/17 05:55 Troponin I 0.024 ng/mL (0.000-0.056) White Blood Count 8.4 K/UL (4.8-10.8) Red Blood Count 3.19 M/UL (4.70-6.10) L Hemoglobin 9.4 G/DL (14.2-18.0) L Hematocrit 29.5 % (42.0-52.0) L Mean Corpuscular Volume 92 FL (80-99) Mean Corpuscular Hemoglobin 29.4 PG (27.0-31.0) Mean Corpuscular Hemoglobin Concent 31.8 G/DL (32.0-36.0) L Red Cell Distribution Width 18.7 % (11.6-14.8) H Platelet Count 215 K/UL (150-450) Mean Platelet Volume 6.7 FL (6.5-10.1) Neutrophils (%) (Auto) 63.7 % (45.0-75.0) Lymphocytes (%) (Auto) 15.4 % (20.0-45.0) L Monocytes (%) (Auto) 17.3 % (1.0-10.0) H Eosinophils (%) (Auto) 2.4 % (0.0-3.0) Basophils (%) (Auto) 1.3 % (0.0-2.0) Sodium Level 140 MMOL/L (136-145) Potassium Level 5.0 MMOL/L (3.5-5.1) Chloride Level 105 MMOL/L (98-107) Carbon Dioxide Level 27 MMOL/L (21-32) Anion Gap 8 mmol/L (5-15) Blood Urea Nitrogen 60 mg/dL (7-18) H Creatinine 3.0 MG/DL (0.55-1.30) H Estimat Glomerular Filtration Rate 25.5 mL/min (>60) Glucose Level 252 MG/DL (74-106) #H Uric Acid 7.1 MG/DL (2.6-7.2) Calcium Level 8.6 MG/DL (8.5-10.1) Phosphorus Level 5.7 MG/DL (2.5-4.9) H Magnesium Level 2.0 MG/DL (1.8-2.4) Total Bilirubin 0.4 MG/DL (0.2-1.0) Gamma Glutamyl Transpeptidase 54 U/L (5-85) Aspartate Amino Transf (AST/SGOT) 14 U/L (15-37) L Alanine Aminotransferase (ALT/SGPT) 47 U/L (12-78) Alkaline Phosphatase 142 U/L (46-116) H Total Creatine Kinase 64 U/L (26-308) C-Reactive Protein, Quantitative 1.2 mg/dL (0.00-0.90) H Pro-B-Type Natriuretic Peptide 3837 pg/mL (0-125) H Total Protein 6.7 G/DL (6.4-8.2) Albumin 2.6 G/DL (3.4-5.0) L Globulin 4.1 g/dL Albumin/Globulin Ratio 0.6 (1.0-2.7) L Triglycerides Level 32 MG/DL (30-150) Cholesterol Level 127 MG/DL (< 200) LDL Cholesterol 63 mg/dL (<100) HDL Cholesterol 63 MG/DL (40-60) H Cholesterol/HDL Ratio 2.0 (3.3-4.4) L Thyroid Stimulating Hormone (TSH) 1.327 uiU/mL (0.358-3.740) Microbiology Date/Time Source Procedure Growth Status 07/22/17 19:30 Blood Blood Culture - Preliminary NO GROWTH AFTER 48 HOURS Resulted 07/22/17 19:25 Blood Blood Culture - Preliminary NO GROWTH AFTER 48 HOURS Resulted 07/23/17 18:00 Sputum Gram Stain - Final Resulted 07/23/17 18:00 Sputum Sputum Culture - Preliminary NORMAL UPPER RESPIRATORY JEFFREY AT 24 ... Resulted 07/22/17 23:00 Nasal Nares MRSA Culture - Final NO METHICILLIN RESISTANT STAPH AUREUS... Complete 07/22/17 23:00 Rectum VRE Culture - Final Enterococcus Faecium - Vre Complete SIDDHARTHA MADERA Jul 25, 2017 14:33
--- NOTE | 2017-07-25 16:45 | Consultation ---
DATE OF CONSULTATION: 07/25/2017 UROLOGY CONSULTATION REQUESTING PHYSICIAN: Bruno Serrato M.D. REASON FOR CONSULTATION: The patient is a 66-year-old male, admitted to the hospital with shortness of breath and congestive heart failure, who has been found to have worsening renal insufficiency. Renal ultrasound shows bilateral hydronephrosis. The patient has agreed to have a Kilpatrick catheter placed and currently it is in place. PAST MEDICAL HISTORY: Diabetes mellitus type 2, hypertension, hypercholesterolemia, and atrial fibrillation. PAST SURGICAL HISTORY: Right [id number] amputation, peripheral vascular disease, and benign prostatic hypertrophy. MEDICATIONS: Long list of medications to treat his medical condition and he has also been on one Flomax daily as well. SOCIAL HISTORY: Noncontributory. REVIEW OF SYSTEMS: Noncontributory. PHYSICAL EXAMINATION: VITAL SIGNS: Temperature 97.7 degrees, pulse 66, and blood pressure 160/90. GENERAL: He is awake and alert. HEAD AND NECK: No palpable abnormalities. LUNGS: Shallow breath sounds. HEART: S1 and S2 heart sounds are present and are irregular. ABDOMEN: Soft and nontender. No palpable abnormalities. GENITOURINARY: Testicles bilaterally descended without masses. RECTAL: Prostate has [id number] enlargement. No palpable nodules. Penis within normal limits with Kilpatrick catheter in place. LABORATORY VALUES: Sodium 140, potassium 5.0, BUN of 16, and creatinine 3.0. White blood cell count 8,400 and hemoglobin of 9.4. Urinalysis is negative for infection or blood. Ultrasound of the kidneys showed some hydronephrosis, right greater than left and over a liter of urine in the bladder. ASSESSMENT: My assessment on this patient is most likely reason for his hydronephrosis and renal insufficiency is poor emptying of the bladder. Prostate is not all that impressive for enlargement on exam, however, it is likely due to the factor he may also have very significant medical renal disease with his medical problems and this can certainly contribute to his renal insufficiency. RECOMMENDATIONS: My recommendation is to leave the Kilpatrick catheter in place and see if his renal function improves. The overwhelming likelihood of the obstruction causing hydronephrosis is poor bladder emptying. The patient will need cystoscopy and further workup as an outpatient. Thank you very much for requesting urologic consultation on this patient. Arjun Osorio DR: Ramírez JOB#: [id number] CC:
[2017-07-25] MEDS: Tamsulosin 0.4mg cap ORAL SCH (17:25)
[2017-07-25] MEDS: Norco 5mg/325mg tab ORAL PRN (17:37)
[2017-07-25] MEDS: Dyna-Hex 2% Top Sol 2oz TOPIC SCH (20:16)
[2017-07-26] VITALS (7 sets, daily range): BP systolic 126–173; BP diastolic 66–86
[2017-07-26] MEDS: Piperacillin/Tazobactam 3.375 GM in D5W 55 ML IVPB SCH ×2 (02:27→15:30)
[2017-07-26 04:55] LABS: BASOPHILS % (AUTO) 1.2 % (0.0-2.0); EOSINOPHILS % (AUTO) 3.7 % (0.0-3.0); LYMPHOCYTES % (AUTO) 16.6 % (20.0-45.0); MEAN CORPUSCULAR HEMOGLOBIN 29.6 PG (27.0-31.0); MEAN CORPUSCULAR HGB CONC 32.2 G/DL (32.0-36.0); MEAN CORPUSCULAR VOLUME 92 FL (80-99); MEAN PLATELET VOLUME 6.4 FL (6.5-10.1); MONOCYTES % (AUTO) 14.5 % (1.0-10.0); NEUTROPHILS % (AUTO) 64.1 % (45.0-75.0); PLATELET COUNT 209 K/UL (150-450); RED BLOOD COUNT 3.21 M/UL (4.70-6.10); RED CELL DISTRIBUTION WIDTH 18.6 % (11.6-14.8); WHITE BLOOD COUNT 9.4 K/UL (4.8-10.8)
[2017-07-26 05:27] LABS: ALANINE AMINOTRANSFERASE 41 U/L (12-78); ALBUMIN/GLOBULIN RATIO 0.7 (1.0-2.7); ANION GAP 8 mmol/L (5-15); ASPARTATE AMINO TRANSFERASE 13 U/L (15-37); CALCIUM 8.9 MG/DL (8.5-10.1); CARBON DIOXIDE 28 MMOL/L (21-32); CHLORIDE 105 MMOL/L (98-107); CREATININE 3.1 MG/DL (0.55-1.30); CRP QUANT 0.7 mg/dL (0.00-0.90); FERRITIN 101 NG/ML (8-388); GLOMERULAR FILTRATION RATE 24.6 mL/min (>60); MAGNESIUM 1.9 MG/DL (1.8-2.4); PHOSPHORUS 5.2 MG/DL (2.5-4.9); POTASSIUM 4.8 MMOL/L (3.5-5.1); SODIUM 141 MMOL/L (136-145); TOTAL PROTEIN 6.8 G/DL (6.4-8.2); URIC ACID 7.7 MG/DL (2.6-7.2)
[2017-07-26 05:33] LABS: HEMOGLOBIN A1C 7.2 % (4.3-6.0)
[2017-07-26] MEDS: NovoLOG Insulin Flexpen SUBQ SCH ×4 (06:13→21:56)
[2017-07-26] MEDS: Tamsulosin 0.4mg cap ORAL SCH ×2 (08:31→17:14)
[2017-07-26] MEDS: dilTIAZem HCl 60mg tab ORAL SCH ×2 (08:31→15:30)
[2017-07-26] MEDS: Eliquis 2.5mg tablet ORAL SCH ×2 (08:31→17:14)
[2017-07-26] MEDS: Carvedilol 6.25mg Tab ORAL SCH (08:32)
[2017-07-26] MEDS: Norco 5mg/325mg tab ORAL PRN ×2 (08:32→21:29)
--- NOTE | 2017-07-26 09:47 | Nephrology Progress Note ---
Assessment/Plan Assessment admitted for respiratory distress, CHF vs Pneumonia right side Has DM h/o A fib acute renal failure on CRI now Cr 3 h/o bladder outlet obstruction) per AILYN in past Also due to DM and HTN, has 3+ Proteinuria anemia DM HTN R BKA stump wound infested now BLE pain severe protein calorie malnutrition Urinary retention due to bladder out let Obstruction Echo; Left ventricular ejection fraction estimated to be 60-65%. CXR: Since June 02, 2017, interim development of interstitial congestion, right-sided airspace consolidation/edema, and right-sided pleural effusion AILYN: Echogenic kidneys with bilateral hydronephrosis. Large post void residual urine in the bladder. Plan Plan: Down on Lasix Up on Flomax Avoid nephrotoxics monitor renal parameters Subjective ROS Limited/Unobtainable: No Constitutional: Reports: malaise, weakness Objective Objective Last 24 Hour Vital Signs Date Time Temp Pulse Resp B/P (MAP) Pulse Ox O2 Delivery O2 Flow Rate FiO2 07/26/17 08:32 80 126/66 07/26/17 08:31 80 126/66 07/26/17 08:00 97.9 80 20 126/66 99 Room Air 07/26/17 07:58 Room Air 07/26/17 07:57 98 Room Air 07/26/17 04:00 108 07/26/17 04:00 97.8 74 18 147/86 98 Room Air 07/26/17 00:30 152/79 07/26/17 00:00 94.5 70 18 173/76 96 Room Air 07/26/17 00:00 74 07/25/17 23:27 72 149/78 07/25/17 21:00 148/84 07/25/17 20:17 78 166/88 07/25/17 20:00 65 07/25/17 20:00 98.1 64 20 169/98 95 Room Air 3.0 21 07/25/17 18:36 97.7 07/25/17 18:30 Room Air 07/25/17 18:30 97 Room Air 21 07/25/17 16:00 63 07/25/17 15:45 97.7 64 20 149/76 100 07/25/17 15:39 63 160/76 07/25/17 12:00 63 07/25/17 11:35 96.8 62 20 141/70 100 Nasal Cannula 3.0 Intake and Output 07/26/17 07/27/17 19:00 07:00 # Bowel Movements 1 Laboratory Tests 07/26/17 04:30: White Blood Count 9.4, Red Blood Count 3.21L, Hemoglobin 9.5L, Hematocrit 29.6L , Mean Corpuscular Volume 92, Mean Corpuscular Hemoglobin 29.6, Mean Corpuscular Hemoglobin Concent 32.2, Red Cell Distribution Width 18.6H, Platelet Count 209, Mean Platelet Volume 6.4L, Neutrophils (%) (Auto) 64.1, Lymphocytes (%) (Auto) 16.6L, Monocytes (%) (Auto) 14.5H, Eosinophils (%) (Auto ) 3.7H, Basophils (%) (Auto) 1.2, Urine Eosinophils None seen, Urine Random Sodium 108, Sodium Level 141, Potassium Level 4.8, Chloride Level 105, Carbon Dioxide Level 28, Anion Gap 8, Blood Urea Nitrogen 55H, Creatinine 3.1H, Estimat Glomerular Filtration Rate 24.6, Glucose Level 146#H, Hemoglobin A1c 7.2H, Uric Acid 7.7H, Calcium Level 8.9, Phosphorus Level 5.2H, Magnesium Level 1.9, Ferritin 101, Total Bilirubin 0.4, Gamma Glutamyl Transpeptidase 43, Aspartate Amino Transf (AST/SGOT) 13L, Alanine Aminotransferase (ALT/SGPT) 41, Alkaline Phosphatase 133H, Total Creatine Kinase 52, C-Reactive Protein, Quantitative 0.7, Pro-B-Type Natriuretic Peptide 3973H, Total Protein 6.8, Albumin 2.8L, Globulin 4.0, Albumin/Globulin Ratio 0.7L Height (Feet): 6 Height (Inches): 2.00 Weight (Pounds): 164 General Appearance: no apparent distress Cardiovascular: tachycardia Respiratory/Chest: decreased breath sounds Abdomen: soft TYE TINAJERO Jul 26, 2017 09:47
--- NOTE | 2017-07-26 10:36 | Pulmonology Progress Note ---
Assessment/Plan Problems: (1) Respiratory distress (2) Pulmonary edema (3) Atrial fibrillation (4) Pneumonia (5) Right BKA infection Assessment/Plan in and out of sinus, Monitor BP titrate cardiac meds anemia w/u in progress check electrolytes Renal consult appreciated Urology consult appreciated "The overwhelming likelihood of the obstruction causing hydronephrosis is poor bladder emptying". Subjective ROS Limited/Unobtainable: No Constitutional: Reports: no symptoms HEENT: Repors: no symptoms Respiratory: Reports: no symptoms Allergies: Coded Allergies: No Known Allergies (Unverified , 04/25/17) Objective Last 24 Hour Vital Signs Date Time Temp Pulse Resp B/P (MAP) Pulse Ox O2 Delivery O2 Flow Rate FiO2 07/26/17 08:32 80 126/66 07/26/17 08:31 80 126/66 07/26/17 08:00 97.9 80 20 126/66 99 Room Air 07/26/17 08:00 95 07/26/17 07:58 Room Air 07/26/17 07:57 98 Room Air 07/26/17 04:00 108 07/26/17 04:00 97.8 74 18 147/86 98 Room Air 07/26/17 00:30 152/79 07/26/17 00:00 94.5 70 18 173/76 96 Room Air 07/26/17 00:00 74 07/25/17 23:27 72 149/78 07/25/17 21:00 148/84 07/25/17 20:17 78 166/88 07/25/17 20:00 65 07/25/17 20:00 98.1 64 20 169/98 95 Room Air 3.0 21 07/25/17 18:36 97.7 07/25/17 18:30 Room Air 07/25/17 18:30 97 Room Air 21 07/25/17 16:00 63 07/25/17 15:45 97.7 64 20 149/76 100 07/25/17 15:39 63 160/76 07/25/17 12:00 63 07/25/17 11:35 96.8 62 20 141/70 100 Nasal Cannula 3.0 Intake and Output 07/26/17 07/27/17 19:00 07:00 # Bowel Movements 1 General Appearance: WD/WN HEENT: normocephalic, atraumatic Respiratory/Chest: chest wall non-tender, lungs clear Cardiovascular: normal peripheral pulses, regular rhythm Abdomen: normal bowel sounds, soft, non tender Skin: no rash 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 Complete Laboratory Tests 07/26/17 04:30: White Blood Count 9.4, Red Blood Count 3.21L, Hemoglobin 9.5L, Hematocrit 29.6L , Mean Corpuscular Volume 92, Mean Corpuscular Hemoglobin 29.6, Mean Corpuscular Hemoglobin Concent 32.2, Red Cell Distribution Width 18.6H, Platelet Count 209, Mean Platelet Volume 6.4L, Neutrophils (%) (Auto) 64.1, Lymphocytes (%) (Auto) 16.6L, Monocytes (%) (Auto) 14.5H, Eosinophils (%) (Auto ) 3.7H, Basophils (%) (Auto) 1.2, Urine Eosinophils None seen, Urine Random Sodium 108, Sodium Level 141, Potassium Level 4.8, Chloride Level 105, Carbon Dioxide Level 28, Anion Gap 8, Blood Urea Nitrogen 55H, Creatinine 3.1H, Estimat Glomerular Filtration Rate 24.6, Glucose Level 146#H, Hemoglobin A1c 7.2H, Uric Acid 7.7H, Calcium Level 8.9, Phosphorus Level 5.2H, Magnesium Level 1.9, Ferritin 101, Total Bilirubin 0.4, Gamma Glutamyl Transpeptidase 43, Aspartate Amino Transf (AST/SGOT) 13L, Alanine Aminotransferase (ALT/SGPT) 41, Alkaline Phosphatase 133H, Total Creatine Kinase 52, C-Reactive Protein, Quantitative 0.7, Pro-B-Type Natriuretic Peptide 3973H, Total Protein 6.8, Albumin 2.8L, Globulin 4.0, Albumin/Globulin Ratio 0.7L Current Medications Medications (Trade) Dose Ordered Sig/Dragan Route PRN Reason Start Time Stop Time Status Last Admin Dose Admin Acetaminophen (Tylenol) 650 mg Q4H PRN ORAL Fever 07/22/17 22:00 08/21/17 21:59 Acetaminophen/ Hydrocodone Bitart ([place] 5/325) 1 tab Q6H PRN ORAL For Pain 07/22/17 22:00 07/29/17 21:59 07/26/17 08:32 Albuterol/ Ipratropium (Albuterol/ Ipratropium) 3 ml EVERY 4 HOURS PRN HHN Shortness of Breath 07/22/17 22:00 07/27/17 21:59 Apixaban (Eliquis) 2.5 mg BID ORAL 07/23/17 18:00 08/22/17 17:59 07/26/17 08:31 Carvedilol (Coreg) 12.5 mg EVERY 12 HOURS ORAL 07/26/17 21:00 08/25/17 20:59 Chlorhexidine Gluconate (Esmer-Hex 2%) 1 applic DAILY@2000 TOPIC 07/24/17 17:45 08/23/17 17:44 07/25/17 20:16 Dextrose (Dextrose 50%) STAT PRN IV Hypoglycemia 07/22/17 22:00 08/21/17 21:59 Diltiazem HCl (Cardizem) 60 mg Q8H ORAL 07/24/17 08:00 08/23/17 07:59 07/26/17 08:31 Finasteride (Proscar) 5 mg DAILY ORAL 07/25/17 10:30 08/24/17 10:29 07/26/17 08:31 Furosemide (Lasix) 40 mg DAILY IV 07/27/17 09:00 08/26/17 08:59 Gabapentin (Neurontin) 300 mg BEDTIME ORAL 07/23/17 21:00 08/22/17 20:59 07/25/17 20:17 Insulin Aspart (NovoLOG) BEFORE MEALS AND HS SUBQ 07/23/17 06:30 08/22/17 06:29 07/26/17 06:13 Iron Sucrose 200 mg/Sodium Chloride 120 ml @ 240 mls/hr ONCE ONCE IV 07/26/17 21:00 07/26/17 21:29 Ondansetron HCl (Zofran) 4 mg Q6H PRN IVP Nausea & Vomiting 07/22/17 22:00 08/21/17 21:59 Piperacillin Sod/ Tazobactam Sod 3.375 gm/Dextrose 55 ml @ 13.75 mls/ hr Q12H IVPB 07/23/17 15:00 07/30/17 14:59 07/26/17 02:27 Polyethylene Glycol (Miralax) 17 gm DAILYPRN PRN ORAL Constipation 07/22/17 22:00 08/21/17 21:59 Promethazine HCl/ Codeine (Phenergan with Codeine) 5 ml Q4H PRN ORAL For Cough 07/23/17 12:15 08/22/17 12:14 Tamsulosin HCl (Flomax) 0.4 mg BID ORAL 07/25/17 18:00 08/22/17 20:59 07/26/17 08:31 Temazepam (Restoril) 15 mg HSPRN PRN ORAL Insomnia 07/22/17 22:00 07/29/17 21:59 BRIAN HERNANDEZ Jul 26, 2017 10:36
--- NOTE | 2017-07-26 13:42 | Internal Med Progress Note ---
Subjective Date of Service: Jul 26, 2017 Physician Name Maryanne Smalls Attending Physician Bruno Serrato MD Current Medications Medications (Trade) Dose Ordered Sig/Dragan Route PRN Reason Start Time Stop Time Status Last Admin Dose Admin Acetaminophen (Tylenol) 650 mg Q4H PRN ORAL Fever 07/22/17 22:00 08/21/17 21:59 Acetaminophen/ Hydrocodone Bitart ([place] 5/325) 1 tab Q6H PRN ORAL For Pain 07/22/17 22:00 07/29/17 21:59 07/26/17 08:32 Albuterol/ Ipratropium (Albuterol/ Ipratropium) 3 ml EVERY 4 HOURS PRN HHN Shortness of Breath 07/22/17 22:00 07/27/17 21:59 Apixaban (Eliquis) 2.5 mg BID ORAL 07/23/17 18:00 08/22/17 17:59 07/26/17 08:31 Carvedilol (Coreg) 12.5 mg EVERY 12 HOURS ORAL 07/26/17 21:00 08/25/17 20:59 Chlorhexidine Gluconate (Esmer-Hex 2%) 1 applic DAILY@2000 TOPIC 07/24/17 17:45 08/23/17 17:44 07/25/17 20:16 Dextrose (Dextrose 50%) STAT PRN IV Hypoglycemia 07/22/17 22:00 08/21/17 21:59 Diltiazem HCl (Cardizem) 60 mg Q8H ORAL 07/24/17 08:00 08/23/17 07:59 07/26/17 08:31 Finasteride (Proscar) 5 mg DAILY ORAL 07/25/17 10:30 08/24/17 10:29 07/26/17 08:31 Furosemide (Lasix) 40 mg DAILY IV 07/27/17 09:00 08/26/17 08:59 Gabapentin (Neurontin) 300 mg BEDTIME ORAL 07/23/17 21:00 08/22/17 20:59 07/25/17 20:17 Insulin Aspart (NovoLOG) BEFORE MEALS AND HS SUBQ 07/23/17 06:30 08/22/17 06:29 07/26/17 11:19 Iron Sucrose 200 mg/Sodium Chloride 120 ml @ 240 mls/hr ONCE ONCE IV 07/26/17 21:00 07/26/17 21:29 Ondansetron HCl (Zofran) 4 mg Q6H PRN IVP Nausea & Vomiting 07/22/17 22:00 08/21/17 21:59 Piperacillin Sod/ Tazobactam Sod 3.375 gm/Dextrose 55 ml @ 13.75 mls/ hr Q12H IVPB 07/23/17 15:00 07/30/17 14:59 07/26/17 02:27 Polyethylene Glycol (Miralax) 17 gm DAILYPRN PRN ORAL Constipation 07/22/17 22:00 08/21/17 21:59 Promethazine HCl/ Codeine (Phenergan with Codeine) 5 ml Q4H PRN ORAL For Cough 07/23/17 12:15 08/22/17 12:14 Tamsulosin HCl (Flomax) 0.4 mg BID ORAL 07/25/17 18:00 08/22/17 20:59 07/26/17 08:31 Temazepam (Restoril) 15 mg HSPRN PRN ORAL Insomnia 07/22/17 22:00 07/29/17 21:59 Allergies: Coded Allergies: No Known Allergies (Unverified , 04/25/17) ROS Limited/Unobtainable: No Constitutional: Reports: no symptoms HEENT: Reports: no symptoms Cardiovascular: Reports: no symptoms Respiratory: Reports: no symptoms Gastrointestinal/Abdominal: Reports: no symptoms Genitourinary: Reports: no symptoms Neurologic/Psychiatric: Reports: no symptoms Subjective 66 YO M admitted with shortness of breath. Now atrial fibrillation with rapid ventricular rate. Large post void residual overnight requiring johnson. Cover for Int Jonathan-Dr Serrato. Objective Last Vital Signs Date Time Temp Pulse Resp B/P (MAP) Pulse Ox O2 Delivery O2 Flow Rate FiO2 07/26/17 12:00 98.1 77 21 157/72 99 Room Air 07/26/17 07:57 21 07/25/17 20:00 3.0 Laboratory Tests Test 07/26/17 04:30 White Blood Count 9.4 K/UL (4.8-10.8) Red Blood Count 3.21 M/UL (4.70-6.10) L Hemoglobin 9.5 G/DL (14.2-18.0) L Hematocrit 29.6 % (42.0-52.0) L Mean Corpuscular Volume 92 FL (80-99) Mean Corpuscular Hemoglobin 29.6 PG (27.0-31.0) Mean Corpuscular Hemoglobin Concent 32.2 G/DL (32.0-36.0) Red Cell Distribution Width 18.6 % (11.6-14.8) H Platelet Count 209 K/UL (150-450) Mean Platelet Volume 6.4 FL (6.5-10.1) L Neutrophils (%) (Auto) 64.1 % (45.0-75.0) Lymphocytes (%) (Auto) 16.6 % (20.0-45.0) L Monocytes (%) (Auto) 14.5 % (1.0-10.0) H Eosinophils (%) (Auto) 3.7 % (0.0-3.0) H Basophils (%) (Auto) 1.2 % (0.0-2.0) Urine Eosinophils None seen Urine Random Sodium 108 MEQ/L (20-110) Sodium Level 141 MMOL/L (136-145) Potassium Level 4.8 MMOL/L (3.5-5.1) Chloride Level 105 MMOL/L (98-107) Carbon Dioxide Level 28 MMOL/L (21-32) Anion Gap 8 mmol/L (5-15) Blood Urea Nitrogen 55 mg/dL (7-18) H Creatinine 3.1 MG/DL (0.55-1.30) H Estimat Glomerular Filtration Rate 24.6 mL/min (>60) Glucose Level 146 MG/DL (74-106) #H Hemoglobin A1c 7.2 % (4.3-6.0) H Uric Acid 7.7 MG/DL (2.6-7.2) H Calcium Level 8.9 MG/DL (8.5-10.1) Phosphorus Level 5.2 MG/DL (2.5-4.9) H Magnesium Level 1.9 MG/DL (1.8-2.4) Ferritin 101 NG/ML (8-388) Total Bilirubin 0.4 MG/DL (0.2-1.0) Gamma Glutamyl Transpeptidase 43 U/L (5-85) Aspartate Amino Transf (AST/SGOT) 13 U/L (15-37) L Alanine Aminotransferase (ALT/SGPT) 41 U/L (12-78) Alkaline Phosphatase 133 U/L (46-116) H Total Creatine Kinase 52 U/L (26-308) C-Reactive Protein, Quantitative 0.7 mg/dL (0.00-0.90) Pro-B-Type Natriuretic Peptide 3973 pg/mL (0-125) H Total Protein 6.8 G/DL (6.4-8.2) Albumin 2.8 G/DL (3.4-5.0) L Globulin 4.0 g/dL Albumin/Globulin Ratio 0.7 (1.0-2.7) L Microbiology Date/Time Source Procedure Growth Status 07/23/17 18:00 Sputum Gram Stain - Final Complete 07/23/17 18:00 Sputum Sputum Culture - Final NORMAL UPPER RESPIRATORY JEFFREY AT 48 ... Complete Intake and Output 07/26/17 07/27/17 19:00 07:00 # Bowel Movements 1 Objective General Appearance: WD/WN, no apparent distress, alert EENT: PERRL/EOMI, normal ENT inspection, TMs normal Neck: non-tender, normal alignment, supple, normal inspection Cardiovascular: normal peripheral pulses, no gallop/murmur, no JVD, irregularly irregular Respiratory/Chest: chest wall non-tender, lungs clear, normal breath sounds, no respiratory distress, no accessory muscle use Abdomen: normal bowel sounds, non tender, soft, no organomegaly, no mass Extremities: normal range of motion Neurologic: forming fixer II-XII grossly normal, no motor/sensory deficits Skin: normal pigmentation, warm/dry Assessment/Plan Problem List: (1) Urinary retention Assessment & Plan: Outlet obstruction. Continue johnson per urology. (2) Hydronephrosis (3) SOB (shortness of breath) (4) Atrial fibrillation with rapid ventricular response Assessment & Plan: Continue cardizem and eliquis. See cardiology consult note. (5) CHF (congestive heart failure) (6) Diabetes mellitus, type II Assessment & Plan: Continue novolog sliding scale. (7) HTN (hypertension) (8) CHF exacerbation (9) Hypercholesteremia (10) Renal failure Assessment & Plan: ?urinary retention? Await nephrology consult. 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 See urology consult-will require outpatient cystoscopy Status: not improved MARYANNE SMALLS Jul 26, 2017 13:42
--- NOTE | 2017-07-26 15:17 | Infectious Diseases Prog Note ---
Assessment/Plan Assessment/Plan Assesment: SOB- possibly multifactorial: combination of acute CHF exacerbation and possible PNA (HCAP) -CXR: interim development of interstitial congestion,right-sided airspace consolidation/edema, and right-sided pleural effusion -sp cx Normal mildred to date -Bcx NTD Afebrile, no leukocytosis bilateral hydronephrosis.Large post void residual urine in the bladder.Small right pleural effusion.Bilateral renal cysts. Recent Right BKA stump wound infection with Acute OM s/p revision 06/09; on Rx; decreasing inflammatory markers -OR findings: The right [id number] amputation stump had prominent edema. The severed bone appeared healthy. The circulation appeared adequate. The posterior tibial vessels were patent as were the anterior tibial. -path: acute on chronic OM -superficial wound cx: +4 Serratia Marcecens (S. Ceftriaxone, levo/cipro, Bactrim, Zosyn), +4 E. cloace (S. Ceftriaxone, levo/Cipro, Zosyn; R bactrim); possible that these represents colonizer as wound cx was superficial and likely pathogens could still be Strep sp and MSSA. -s/p admission in [facility] in March for stump infection s/p 4 weeks of PO abx (pt unsure of abx) -06/03 ESR 116, CRP 6.1; 06/12 ESR 113, CRP >12; 07/24 CRP 1.2, ESR 82 Renal insufficiency, worsening -Renal US: Echogenic kidneys with Hyperlipidemia. History of hypoglycemia. Hypertension. Diabetes. Atrial fibrillation. Chronic anemia Cachexia Plan: continue Zosyn # 4 / 7 SP IV Vancomycin #3 07/25 -s/p Ertapenem 06/11-07/22 -s/p 2d Zosyn 06/11 -s/p 7d Ceftriaxone 06/09 -s/p 5d IV Vanco, 4d Zosyn / -f/u cx -Monitor CBC/BMP, temperatures Subjective Allergies: Coded Allergies: No Known Allergies (Unverified , 04/25/17) Subjective comfortable Objective Vital Signs Last 24 Hour Vital Signs Date Time Temp Pulse Resp B/P (MAP) Pulse Ox O2 Delivery O2 Flow Rate FiO2 07/26/17 12:00 98.1 77 21 157/72 99 Room Air 07/26/17 12:00 81 07/26/17 08:32 80 126/66 07/26/17 08:31 80 126/66 07/26/17 08:00 97.9 80 20 126/66 99 Room Air 07/26/17 08:00 95 07/26/17 07:58 Room Air 07/26/17 07:57 98 Room Air 21 07/26/17 04:00 108 07/26/17 04:00 97.8 74 18 147/86 98 Room Air 07/26/17 00:30 152/79 07/26/17 00:00 94.5 70 18 173/76 96 Room Air 07/26/17 00:00 74 07/25/17 23:27 72 149/78 07/25/17 21:00 148/84 07/25/17 20:17 78 166/88 07/25/17 20:00 65 07/25/17 20:00 98.1 64 20 169/98 95 Room Air 3.0 21 07/25/17 18:36 97.7 07/25/17 18:30 Room Air 07/25/17 18:30 97 Room Air 21 07/25/17 16:00 63 07/25/17 15:45 97.7 64 20 149/76 100 07/25/17 15:39 63 160/76 Height (Feet): 6 Height (Inches): 2.00 Weight (Pounds): 164 HEENT: atraumatic Respiratory/Chest: no accessory muscle use Cardiovascular: no gallop/murmur Abdomen: non distended Microbiology Date/Time Source Procedure Growth Status 07/23/17 18:00 Sputum Gram Stain - Final Complete 07/23/17 18:00 Sputum Sputum Culture - Final NORMAL UPPER RESPIRATORY MILDRED AT 48 ... Complete Laboratory Tests Test 07/26/17 04:30 White Blood Count 9.4 K/UL (4.8-10.8) Red Blood Count 3.21 M/UL (4.70-6.10) L Hemoglobin 9.5 G/DL (14.2-18.0) L Hematocrit 29.6 % (42.0-52.0) L Mean Corpuscular Volume 92 FL (80-99) Mean Corpuscular Hemoglobin 29.6 PG (27.0-31.0) Mean Corpuscular Hemoglobin Concent 32.2 G/DL (32.0-36.0) Red Cell Distribution Width 18.6 % (11.6-14.8) H Platelet Count 209 K/UL (150-450) Mean Platelet Volume 6.4 FL (6.5-10.1) L Neutrophils (%) (Auto) 64.1 % (45.0-75.0) Lymphocytes (%) (Auto) 16.6 % (20.0-45.0) L Monocytes (%) (Auto) 14.5 % (1.0-10.0) H Eosinophils (%) (Auto) 3.7 % (0.0-3.0) H Basophils (%) (Auto) 1.2 % (0.0-2.0) Urine Eosinophils None seen Urine Random Sodium 108 MEQ/L (20-110) Sodium Level 141 MMOL/L (136-145) Potassium Level 4.8 MMOL/L (3.5-5.1) Chloride Level 105 MMOL/L (98-107) Carbon Dioxide Level 28 MMOL/L (21-32) Anion Gap 8 mmol/L (5-15) Blood Urea Nitrogen 55 mg/dL (7-18) H Creatinine 3.1 MG/DL (0.55-1.30) H Estimat Glomerular Filtration Rate 24.6 mL/min (>60) Glucose Level 146 MG/DL (74-106) #H Hemoglobin A1c 7.2 % (4.3-6.0) H Uric Acid 7.7 MG/DL (2.6-7.2) H Calcium Level 8.9 MG/DL (8.5-10.1) Phosphorus Level 5.2 MG/DL (2.5-4.9) H Magnesium Level 1.9 MG/DL (1.8-2.4) Ferritin 101 NG/ML (8-388) Total Bilirubin 0.4 MG/DL (0.2-1.0) Gamma Glutamyl Transpeptidase 43 U/L (5-85) Aspartate Amino Transf (AST/SGOT) 13 U/L (15-37) L Alanine Aminotransferase (ALT/SGPT) 41 U/L (12-78) Alkaline Phosphatase 133 U/L (46-116) H Total Creatine Kinase 52 U/L (26-308) C-Reactive Protein, Quantitative 0.7 mg/dL (0.00-0.90) Pro-B-Type Natriuretic Peptide 3973 pg/mL (0-125) H Total Protein 6.8 G/DL (6.4-8.2) Albumin 2.8 G/DL (3.4-5.0) L Globulin 4.0 g/dL Albumin/Globulin Ratio 0.7 (1.0-2.7) L Current Medications Medications (Trade) Dose Ordered Sig/Dragan Route PRN Reason Start Time Stop Time Status Last Admin Dose Admin Acetaminophen (Tylenol) 650 mg Q4H PRN ORAL Fever 07/22/17 22:00 08/21/17 21:59 Acetaminophen/ Hydrocodone Bitart ([place] 5/325) 1 tab Q6H PRN ORAL For Pain 07/22/17 22:00 07/29/17 21:59 07/26/17 08:32 Albuterol/ Ipratropium (Albuterol/ Ipratropium) 3 ml EVERY 4 HOURS PRN HHN Shortness of Breath 07/22/17 22:00 07/27/17 21:59 Apixaban (Eliquis) 2.5 mg BID ORAL 07/23/17 18:00 08/22/17 17:59 07/26/17 08:31 Carvedilol (Coreg) 12.5 mg EVERY 12 HOURS ORAL 07/26/17 21:00 08/25/17 20:59 Chlorhexidine Gluconate (Esmer-Hex 2%) 1 applic DAILY@1999 TOPIC 07/24/17 17:45 08/23/17 17:44 07/25/17 20:16 Dextrose (Dextrose 50%) STAT PRN IV Hypoglycemia 07/22/17 22:00 08/21/17 21:59 Diltiazem HCl (Cardizem) 60 mg Q8H ORAL 07/24/17 08:00 08/23/17 07:59 07/26/17 08:31 Finasteride (Proscar) 5 mg DAILY ORAL 07/25/17 10:30 08/24/17 10:29 07/26/17 08:31 Furosemide (Lasix) 40 mg DAILY IV 07/27/17 09:00 08/26/17 08:59 Gabapentin (Neurontin) 300 mg BEDTIME ORAL 07/23/17 21:00 08/22/17 20:59 07/25/17 20:17 Insulin Aspart (NovoLOG) BEFORE MEALS AND HS SUBQ 07/23/17 06:30 08/22/17 06:29 07/26/17 11:19 Iron Sucrose 200 mg/Sodium Chloride 120 ml @ 240 mls/hr ONCE ONCE IV 07/26/17 21:00 07/26/17 21:29 Ondansetron HCl (Zofran) 4 mg Q6H PRN IVP Nausea & Vomiting 07/22/17 22:00 08/21/17 21:59 Piperacillin Sod/ Tazobactam Sod 3.375 gm/Dextrose 55 ml @ 13.75 mls/ hr Q12H IVPB 07/23/17 15:00 07/30/17 14:59 07/26/17 02:27 Polyethylene Glycol (Miralax) 17 gm DAILYPRN PRN ORAL Constipation 07/22/17 22:00 08/21/17 21:59 Promethazine HCl/ Codeine (Phenergan with Codeine) 5 ml Q4H PRN ORAL For Cough 07/23/17 12:15 08/22/17 12:14 Tamsulosin HCl (Flomax) 0.4 mg BID ORAL 07/25/17 18:00 08/22/17 20:59 07/26/17 08:31 Temazepam (Restoril) 15 mg HSPRN PRN ORAL Insomnia 07/22/17 22:00 07/29/17 21:59 JULIANE JACKSON M.D. Jul 26, 2017 15:17
--- NOTE | 2017-07-26 15:51 | Cardiology Progress Note ---
Assessment/Plan Assessment/Plan 1. Paroxysmal episodes of atrial fibrillation with present recurrence. 2. Diabetes. 3. Hypertension. 4. Right-sided pulmonary infiltrate and effusion. 5. Chronic kidney disease 6. hydronephrosisi due to poor bladder emptying back and forth between sinus and afib is on noac and coreg and Cardizem off nifedipine bp seem elevated today may need addition of arb or acei cxr still with righ sded infitlrate as of yest Subjective Cardiovascular: Denies: chest pain, lightheadedness Respiratory: Reports: cough - min , Denies: SOB with excertion Gastrointestinal/Abdominal: Denies: abdominal pain Genitourinary: Denies: burning Objective Last 24 Hour Vital Signs Date Time Temp Pulse Resp B/P (MAP) Pulse Ox O2 Delivery O2 Flow Rate FiO2 07/26/17 15:30 81 157/72 07/26/17 12:00 98.1 77 21 157/72 99 Room Air 07/26/17 12:00 81 07/26/17 08:32 80 126/66 07/26/17 08:31 80 126/66 07/26/17 08:00 97.9 80 20 126/66 99 Room Air 07/26/17 08:00 95 07/26/17 07:58 Room Air 07/26/17 07:57 98 Room Air 07/26/17 04:00 108 07/26/17 04:00 97.8 74 18 147/86 98 Room Air 07/26/17 00:30 152/79 07/26/17 00:00 94.5 70 18 173/76 96 Room Air 07/26/17 00:00 74 07/25/17 23:27 72 149/78 07/25/17 21:00 148/84 07/25/17 20:17 78 166/88 07/25/17 20:00 65 07/25/17 20:00 98.1 64 20 169/98 95 Room Air 3.0 21 07/25/17 18:36 97.7 07/25/17 18:30 Room Air 07/25/17 18:30 97 Room Air 21 07/25/17 16:00 63 General Appearance: alert Neck: supple Cardiovascular: normal rate, regular rhythm Respiratory/Chest: lungs clear, normal breath sounds Abdomen: normal bowel sounds, non tender, soft Extremities: no swelling Intake and Output 07/26/17 07/27/17 19:00 07:00 # Bowel Movements 1 Laboratory Tests Test 07/26/17 04:30 White Blood Count 9.4 K/UL (4.8-10.8) Red Blood Count 3.21 M/UL (4.70-6.10) L Hemoglobin 9.5 G/DL (14.2-18.0) L Hematocrit 29.6 % (42.0-52.0) L Mean Corpuscular Volume 92 FL (80-99) Mean Corpuscular Hemoglobin 29.6 PG (27.0-31.0) Mean Corpuscular Hemoglobin Concent 32.2 G/DL (32.0-36.0) Red Cell Distribution Width 18.6 % (11.6-14.8) H Platelet Count 209 K/UL (150-450) Mean Platelet Volume 6.4 FL (6.5-10.1) L Neutrophils (%) (Auto) 64.1 % (45.0-75.0) Lymphocytes (%) (Auto) 16.6 % (20.0-45.0) L Monocytes (%) (Auto) 14.5 % (1.0-10.0) H Eosinophils (%) (Auto) 3.7 % (0.0-3.0) H Basophils (%) (Auto) 1.2 % (0.0-2.0) Urine Eosinophils None seen Urine Random Sodium 108 MEQ/L (20-110) Sodium Level 141 MMOL/L (136-145) Potassium Level 4.8 MMOL/L (3.5-5.1) Chloride Level 105 MMOL/L (98-107) Carbon Dioxide Level 28 MMOL/L (21-32) Anion Gap 8 mmol/L (5-15) Blood Urea Nitrogen 55 mg/dL (7-18) H Creatinine 3.1 MG/DL (0.55-1.30) H Estimat Glomerular Filtration Rate 24.6 mL/min (>60) Glucose Level 146 MG/DL (74-106) #H Hemoglobin A1c 7.2 % (4.3-6.0) H Uric Acid 7.7 MG/DL (2.6-7.2) H Calcium Level 8.9 MG/DL (8.5-10.1) Phosphorus Level 5.2 MG/DL (2.5-4.9) H Magnesium Level 1.9 MG/DL (1.8-2.4) Ferritin 101 NG/ML (8-388) Total Bilirubin 0.4 MG/DL (0.2-1.0) Gamma Glutamyl Transpeptidase 43 U/L (5-85) Aspartate Amino Transf (AST/SGOT) 13 U/L (15-37) L Alanine Aminotransferase (ALT/SGPT) 41 U/L (12-78) Alkaline Phosphatase 133 U/L (46-116) H Total Creatine Kinase 52 U/L (26-308) C-Reactive Protein, Quantitative 0.7 mg/dL (0.00-0.90) Pro-B-Type Natriuretic Peptide 3973 pg/mL (0-125) H Total Protein 6.8 G/DL (6.4-8.2) Albumin 2.8 G/DL (3.4-5.0) L Globulin 4.0 g/dL Albumin/Globulin Ratio 0.7 (1.0-2.7) L Microbiology Date/Time Source Procedure Growth Status 07/23/17 18:00 Sputum Gram Stain - Final Complete 07/23/17 18:00 Sputum Sputum Culture - Final NORMAL UPPER RESPIRATORY JEFFREY AT 48 ... Complete SIDDHARTHA MADERA Jul 26, 2017 15:51
--- NOTE | 2017-07-26 17:30 | Progress Note ---
DATE: 07/26/2017 SUBJECTIVE: The patient is currently without complaints, lying in bed comfortably with Kilpatrick catheter in place. PHYSICAL EXAMINATION: Kilpatrick catheter is in excellent position draining clear urine and no change in penis and testicles on his examination. His vital signs are stable. He is afebrile. LABORATORY TESTS: BUN today 55 and creatinine 3.1. ASSESSMENT: The patient's renal insufficiency is about the same. However, the BUN is a little better and the Kilpatrick catheter drainage is going well. His renal insufficiency and hydronephrosis, certainly there is an element of bladder outlet obstruction, however, with all of his medical conditions, the renal insufficiency may be mostly medical in nature. So, I do recommend leaving the Kilpatrick catheter in place and observing the renal function to see how this transpires. Arjun Osorio DR: Ramírez JOB#: [id number] CC:
[2017-07-26] MEDS: Carvedilol 12.5mg tab ORAL SCH (20:41)
[2017-07-26] MEDS ORDERED: Iron Sucrose 200 MG in NS 110 ML IV ONE (21:00)
[2017-07-26] MEDS: Dyna-Hex 2% Top Sol 2oz TOPIC SCH (21:30)
[2017-07-27 00:13] VITALS: BP 136/67
[2017-07-27] MEDS: dilTIAZem HCl 60mg tab ORAL SCH ×3 (00:34→15:50)
[2017-07-27] MEDS: Piperacillin/Tazobactam 3.375 GM in D5W 55 ML IVPB SCH ×2 (03:23→15:00)
[2017-07-27 04:26] VITALS: BP 130/67
[2017-07-27] MEDS: NovoLOG Insulin Flexpen SUBQ SCH ×4 (06:34→20:42)
[2017-07-27 07:34] LABS: BASOPHILS % (AUTO) 1.2 % (0.0-2.0); LYMPHOCYTES % (AUTO) 18.5 % (20.0-45.0); MEAN CORPUSCULAR HEMOGLOBIN 29.1 PG (27.0-31.0); MEAN CORPUSCULAR HGB CONC 31.8 G/DL (32.0-36.0); MEAN CORPUSCULAR VOLUME 91 FL (80-99); MEAN PLATELET VOLUME 6.8 FL (6.5-10.1); MONOCYTES % (AUTO) 14.9 % (1.0-10.0); NEUTROPHILS % (AUTO) 60.5 % (45.0-75.0); PLATELET COUNT 203 K/UL (150-450); RED BLOOD COUNT 3.24 M/UL (4.70-6.10); WHITE BLOOD COUNT 8.5 K/UL (4.8-10.8)
[2017-07-27 07:48] LABS: ANION GAP 7 mmol/L (5-15); CALCIUM 8.6 MG/DL (8.5-10.1); CARBON DIOXIDE 28 MMOL/L (21-32); CHLORIDE 106 MMOL/L (98-107); CREATININE 2.9 MG/DL (0.55-1.30); GLOMERULAR FILTRATION RATE 26.5 mL/min (>60); POTASSIUM 4.9 MMOL/L (3.5-5.1); SODIUM 141 MMOL/L (136-145)
[2017-07-27 08:40] VITALS: BP 142/72
[2017-07-27] MEDS: Eliquis 2.5mg tablet ORAL SCH ×2 (10:27→17:36)
[2017-07-27] MEDS: Norco 5mg/325mg tab ORAL PRN ×2 (10:30→17:40)
[2017-07-27] MEDS: Carvedilol 12.5mg tab ORAL SCH ×2 (10:31→20:41)
[2017-07-27] MEDS: Tamsulosin 0.4mg cap ORAL SCH ×2 (10:32→17:36)
--- NOTE | 2017-07-27 10:46 | Nephrology Progress Note ---
Assessment/Plan Assessment admitted for respiratory distress, CHF vs Pneumonia right side Has DM h/o A fib acute renal failure on CRI now Cr 3 h/o bladder outlet obstruction) per AILYN in past Also due to DM and HTN, has 3+ Proteinuria anemia DM HTN R BKA stump wound infested now BLE pain severe protein calorie malnutrition Urinary retention due to bladder out let Obstruction Echo; Left ventricular ejection fraction estimated to be 60-65%. CXR: Since June 02, 2017, interim development of interstitial congestion, right-sided airspace consolidation/edema, and right-sided pleural effusion AILYN: Echogenic kidneys with bilateral hydronephrosis. Large post void residual urine in the bladder. Plan Plan: Keep johnson in Down on Lasix Up on Flomax Avoid nephrotoxics monitor renal parameters med surg? Subjective ROS Limited/Unobtainable: No Constitutional: Reports: malaise Objective Objective Last 24 Hour Vital Signs Date Time Temp Pulse Resp B/P (MAP) Pulse Ox O2 Delivery O2 Flow Rate FiO2 07/27/17 10:31 80 148/84 07/27/17 08:40 98.2 65 18 142/72 95 Room Air 07/27/17 08:07 60 130/67 07/27/17 04:26 97.8 60 22 130/67 98 Room Air 07/27/17 03:50 69 07/27/17 00:34 63 136/67 07/27/17 00:13 97.8 63 22 136/67 96 Room Air 07/26/17 23:52 65 07/26/17 21:55 Room Air 3.0 32 07/26/17 21:55 98 Room Air 21 07/26/17 20:41 55 127/68 07/26/17 20:23 97.7 55 22 127/68 97 Room Air 07/26/17 19:54 56 07/26/17 16:00 77 07/26/17 16:00 97.7 100 21 134/83 98 Room Air 07/26/17 15:30 81 157/72 07/26/17 12:00 98.1 77 21 157/72 99 Room Air 07/26/17 12:00 81 Laboratory Tests 07/27/17 04:00: Urine Eosinophils Occasional 07/27/17 07:00: White Blood Count 8.5, Red Blood Count 3.24L, Hemoglobin 9.4L, Hematocrit 29.6L , Mean Corpuscular Volume 91, Mean Corpuscular Hemoglobin 29.1, Mean Corpuscular Hemoglobin Concent 31.8L, Red Cell Distribution Width 19.0H, Platelet Count 203, Mean Platelet Volume 6.8, Neutrophils (%) (Auto) 60.5, Lymphocytes (%) (Auto) 18.5L, Monocytes (%) (Auto) 14.9H, Eosinophils (%) (Auto ) 5.0H, Basophils (%) (Auto) 1.2, Sodium Level 141, Potassium Level 4.9, Chloride Level 106, Carbon Dioxide Level 28, Anion Gap 7, Blood Urea Nitrogen 52H, Creatinine 2.9H, Estimat Glomerular Filtration Rate 26.5, Glucose Level 124H, Calcium Level 8.6 Height (Feet): 6 Height (Inches): 2.00 Weight (Pounds): 164 General Appearance: no apparent distress Respiratory/Chest: decreased breath sounds TYE TINAJERO Jul 27, 2017 10:46
--- NOTE | 2017-07-27 12:36 | Pulmonology Progress Note ---
Assessment/Plan Problems: (1) Respiratory distress (2) Pulmonary edema (3) Atrial fibrillation (4) Pneumonia (5) Right BKA infection Assessment/Plan in and out of sinus, Monitor BP titrate cardiac meds anemia w/u in progress check electrolytes Renal consult appreciated Urology consult appreciated "The overwhelming likelihood of the obstruction causing hydronephrosis is poor bladder emptying". Med/surg Subjective Constitutional: Reports: no symptoms Respiratory: Reports: no symptoms Allergies: Coded Allergies: No Known Allergies (Unverified , 04/25/17) Objective Last 24 Hour Vital Signs Date Time Temp Pulse Resp B/P (MAP) Pulse Ox O2 Delivery O2 Flow Rate FiO2 07/27/17 10:31 80 148/84 07/27/17 08:40 98.2 65 18 142/72 95 Room Air 07/27/17 08:07 60 130/67 07/27/17 04:26 97.8 60 22 130/67 98 Room Air 07/27/17 03:50 69 07/27/17 00:34 63 136/67 07/27/17 00:13 97.8 63 22 136/67 96 Room Air 07/26/17 23:52 65 07/26/17 21:55 Room Air 3.0 32 07/26/17 21:55 98 Room Air 21 07/26/17 20:41 55 127/68 07/26/17 20:23 97.7 55 22 127/68 97 Room Air 07/26/17 19:54 56 07/26/17 16:00 77 07/26/17 16:00 97.7 100 21 134/83 98 Room Air 07/26/17 15:30 81 157/72 Objective General Appearance: cachetic Lines, tubes and drains: peripheral HEENT: normocephalic, atraumatic Neck: non-tender, normal alignment Respiratory/Chest: chest wall non-tender, lungs clear Cardiovascular/Chest: normal peripheral pulses, regular rhythm, no gallop/ murmur Abdomen: normal bowel sounds, non tender Genitourinary/Rectal: normal genital exam Extremities: normal range of motion, non-tender Laboratory Tests 07/27/17 04:00: Urine Eosinophils Occasional 07/27/17 07:00: White Blood Count 8.5, Red Blood Count 3.24L, Hemoglobin 9.4L, Hematocrit 29.6L , Mean Corpuscular Volume 91, Mean Corpuscular Hemoglobin 29.1, Mean Corpuscular Hemoglobin Concent 31.8L, Red Cell Distribution Width 19.0H, Platelet Count 203, Mean Platelet Volume 6.8, Neutrophils (%) (Auto) 60.5, Lymphocytes (%) (Auto) 18.5L, Monocytes (%) (Auto) 14.9H, Eosinophils (%) (Auto ) 5.0H, Basophils (%) (Auto) 1.2, Sodium Level 141, Potassium Level 4.9, Chloride Level 106, Carbon Dioxide Level 28, Anion Gap 7, Blood Urea Nitrogen 52H, Creatinine 2.9H, Estimat Glomerular Filtration Rate 26.5, Glucose Level 124H, Calcium Level 8.6 Current Medications Medications (Trade) Dose Ordered Sig/Dragan Route PRN Reason Start Time Stop Time Status Last Admin Dose Admin Acetaminophen (Tylenol) 650 mg Q4H PRN ORAL Fever 07/22/17 22:00 08/21/17 21:59 Acetaminophen/ Hydrocodone Bitart ([place] 5/325) 1 tab Q6H PRN ORAL For Pain 07/22/17 22:00 07/29/17 21:59 07/27/17 10:30 Albuterol/ Ipratropium (Albuterol/ Ipratropium) 3 ml EVERY 4 HOURS PRN HHN Shortness of Breath 07/22/17 22:00 07/27/17 21:59 Apixaban (Eliquis) 2.5 mg BID ORAL 07/23/17 18:00 08/22/17 17:59 07/27/17 10:27 Carvedilol (Coreg) 12.5 mg EVERY 12 HOURS ORAL 07/26/17 21:00 08/25/17 20:59 07/27/17 10:31 Chlorhexidine Gluconate (Esmer-Hex 2%) 1 applic DAILY@1999 TOPIC 07/24/17 17:45 08/23/17 17:44 07/26/17 21:30 Dextrose (Dextrose 50%) STAT PRN IV Hypoglycemia 07/22/17 22:00 08/21/17 21:59 Diltiazem HCl (Cardizem) 60 mg Q8H ORAL 07/24/17 08:00 08/23/17 07:59 07/27/17 08:07 Finasteride (Proscar) 5 mg DAILY ORAL 07/25/17 10:30 08/24/17 10:29 07/27/17 10:32 Furosemide (Lasix) 40 mg DAILY IV 07/27/17 09:00 08/26/17 08:59 07/27/17 10:31 Gabapentin (Neurontin) 300 mg BEDTIME ORAL 07/23/17 21:00 08/22/17 20:59 07/26/17 21:26 Insulin Aspart (NovoLOG) BEFORE MEALS AND HS SUBQ 07/23/17 06:30 08/22/17 06:29 07/27/17 06:34 Ondansetron HCl (Zofran) 4 mg Q6H PRN IVP Nausea & Vomiting 07/22/17 22:00 08/21/17 21:59 Piperacillin Sod/ Tazobactam Sod 3.375 gm/Dextrose 55 ml @ 13.75 mls/ hr Q12H IVPB 07/23/17 15:00 07/30/17 14:59 07/27/17 03:23 Polyethylene Glycol (Miralax) 17 gm DAILYPRN PRN ORAL Constipation 07/22/17 22:00 08/21/17 21:59 Promethazine HCl/ Codeine (Phenergan with Codeine) 5 ml Q4H PRN ORAL For Cough 07/23/17 12:15 08/22/17 12:14 Tamsulosin HCl (Flomax) 0.4 mg BID ORAL 07/25/17 18:00 08/22/17 20:59 07/27/17 10:32 Temazepam (Restoril) 15 mg HSPRN PRN ORAL Insomnia 07/22/17 22:00 07/29/17 21:59 BRIAN HERNANDEZ Jul 27, 2017 12:36
[2017-07-27 12:41] VITALS: BP 113/51
--- NOTE | 2017-07-27 14:42 | Cardiology Progress Note ---
Assessment/Plan Assessment/Plan 1. Paroxysmal episodes of atrial fibrillation with present recurrence. 2. Diabetes. 3. Hypertension. 4. Right-sided pulmonary infiltrate and effusion. 5. Chronic kidney disease 6. hydronephrosisi due to poor bladder emptying back and forth between sinus and afib last afib 07/26 is on noac and coreg and Cardizem off nifedipine bp seem ok for t he most part tele reviewed cxr still with righ sded infitlrate as of yest Subjective Cardiovascular: Denies: chest pain, irregular heart rate, lightheadedness Respiratory: Denies: cough, sputum Gastrointestinal/Abdominal: Denies: abdominal pain Genitourinary: Denies: burning Objective Last 24 Hour Vital Signs Date Time Temp Pulse Resp B/P (MAP) Pulse Ox O2 Delivery O2 Flow Rate FiO2 07/27/17 12:41 97.5 65 18 113/51 95 Room Air 07/27/17 10:31 80 148/84 07/27/17 08:40 98.2 65 18 142/72 95 Room Air 07/27/17 08:07 60 130/67 07/27/17 08:00 62 07/27/17 04:26 97.8 60 22 130/67 98 Room Air 07/27/17 03:50 69 07/27/17 00:34 63 136/67 07/27/17 00:13 97.8 63 22 136/67 96 Room Air 07/26/17 23:52 65 07/26/17 21:55 Room Air 3.0 32 07/26/17 21:55 98 Room Air 21 07/26/17 20:41 55 127/68 07/26/17 20:23 97.7 55 22 127/68 97 Room Air 07/26/17 19:54 56 07/26/17 16:00 77 07/26/17 16:00 97.7 100 21 134/83 98 Room Air 07/26/17 15:30 81 157/72 General Appearance: alert Neck: normal alignment, supple Cardiovascular: normal rate, regular rhythm Respiratory/Chest: lungs clear, decreased breath sounds - right base Abdomen: normal bowel sounds, non tender, soft Extremities: no swelling Intake and Output 07/27/17 07/28/17 19:00 07:00 Intake Total 360 ml Balance 360 ml Intake Oral 360 ml # Bowel Movements 1 Laboratory Tests Test 07/27/17 04:00 07/27/17 07:00 Urine Eosinophils Occasional White Blood Count 8.5 K/UL (4.8-10.8) Red Blood Count 3.24 M/UL (4.70-6.10) L Hemoglobin 9.4 G/DL (14.2-18.0) L Hematocrit 29.6 % (42.0-52.0) L Mean Corpuscular Volume 91 FL (80-99) Mean Corpuscular Hemoglobin 29.1 PG (27.0-31.0) Mean Corpuscular Hemoglobin Concent 31.8 G/DL (32.0-36.0) L Red Cell Distribution Width 19.0 % (11.6-14.8) H Platelet Count 203 K/UL (150-450) Mean Platelet Volume 6.8 FL (6.5-10.1) Neutrophils (%) (Auto) 60.5 % (45.0-75.0) Lymphocytes (%) (Auto) 18.5 % (20.0-45.0) L Monocytes (%) (Auto) 14.9 % (1.0-10.0) H Eosinophils (%) (Auto) 5.0 % (0.0-3.0) H Basophils (%) (Auto) 1.2 % (0.0-2.0) Sodium Level 141 MMOL/L (136-145) Potassium Level 4.9 MMOL/L (3.5-5.1) Chloride Level 106 MMOL/L (98-107) Carbon Dioxide Level 28 MMOL/L (21-32) Anion Gap 7 mmol/L (5-15) Blood Urea Nitrogen 52 mg/dL (7-18) H Creatinine 2.9 MG/DL (0.55-1.30) H Estimat Glomerular Filtration Rate 26.5 mL/min (>60) Glucose Level 124 MG/DL (74-106) H Calcium Level 8.6 MG/DL (8.5-10.1) SIDDHARTHA MADERA Jul 27, 2017 14:42
--- NOTE | 2017-07-27 15:17 | Internal Med Progress Note ---
Subjective Date of Service: Jul 27, 2017 Physician Name Maryanne Smalls Attending Physician Bruno Serrato MD Current Medications Medications (Trade) Dose Ordered Sig/Dragan Route PRN Reason Start Time Stop Time Status Last Admin Dose Admin Acetaminophen (Tylenol) 650 mg Q4H PRN ORAL Fever 07/22/17 22:00 08/21/17 21:59 Acetaminophen/ Hydrocodone Bitart ([place] 5/325) 1 tab Q6H PRN ORAL For Pain 07/22/17 22:00 07/29/17 21:59 07/27/17 10:30 Albuterol/ Ipratropium (Albuterol/ Ipratropium) 3 ml EVERY 4 HOURS PRN HHN Shortness of Breath 07/22/17 22:00 07/27/17 21:59 Apixaban (Eliquis) 2.5 mg BID ORAL 07/23/17 18:00 08/22/17 17:59 07/27/17 10:27 Carvedilol (Coreg) 12.5 mg EVERY 12 HOURS ORAL 07/26/17 21:00 08/25/17 20:59 07/27/17 10:31 Chlorhexidine Gluconate (Esmer-Hex 2%) 1 applic DAILY@2000 TOPIC 07/24/17 17:45 08/23/17 17:44 07/26/17 21:30 Dextrose (Dextrose 50%) STAT PRN IV Hypoglycemia 07/22/17 22:00 08/21/17 21:59 Diltiazem HCl (Cardizem) 60 mg Q8H ORAL 07/24/17 08:00 08/23/17 07:59 07/27/17 08:07 Finasteride (Proscar) 5 mg DAILY ORAL 07/25/17 10:30 08/24/17 10:29 07/27/17 10:32 Furosemide (Lasix) 40 mg DAILY IV 07/27/17 09:00 08/26/17 08:59 07/27/17 10:31 Gabapentin (Neurontin) 300 mg BEDTIME ORAL 07/23/17 21:00 08/22/17 20:59 07/26/17 21:26 Insulin Aspart (NovoLOG) BEFORE MEALS AND HS SUBQ 07/23/17 06:30 08/22/17 06:29 07/27/17 12:50 Ondansetron HCl (Zofran) 4 mg Q6H PRN IVP Nausea & Vomiting 07/22/17 22:00 08/21/17 21:59 Piperacillin Sod/ Tazobactam Sod 3.375 gm/Dextrose 55 ml @ 13.75 mls/ hr Q12H IVPB 07/23/17 15:00 07/30/17 14:59 07/27/17 03:23 Polyethylene Glycol (Miralax) 17 gm DAILYPRN PRN ORAL Constipation 07/22/17 22:00 08/21/17 21:59 Promethazine HCl/ Codeine (Phenergan with Codeine) 5 ml Q4H PRN ORAL For Cough 07/23/17 12:15 08/22/17 12:14 Tamsulosin HCl (Flomax) 0.4 mg BID ORAL 07/25/17 18:00 08/22/17 20:59 07/27/17 10:32 Temazepam (Restoril) 15 mg HSPRN PRN ORAL Insomnia 07/22/17 22:00 07/29/17 21:59 Allergies: Coded Allergies: No Known Allergies (Unverified , 04/25/17) ROS Limited/Unobtainable: No Constitutional: Reports: no symptoms HEENT: Reports: no symptoms Cardiovascular: Reports: no symptoms Respiratory: Reports: no symptoms Gastrointestinal/Abdominal: Reports: no symptoms Genitourinary: Reports: no symptoms Neurologic/Psychiatric: Reports: no symptoms Subjective 66 YO M admitted with shortness of breath. Now atrial fibrillation with rapid ventricular rate. Large post void residual overnight requiring johnson. Cover for Int Jonathan-Dr Serrato. Objective Last Vital Signs Date Time Temp Pulse Resp B/P (MAP) Pulse Ox O2 Delivery O2 Flow Rate FiO2 07/27/17 12:41 97.5 65 18 113/51 95 Room Air 07/26/17 21:55 3.0 32 Laboratory Tests Test 07/27/17 04:00 07/27/17 07:00 Urine Eosinophils Occasional White Blood Count 8.5 K/UL (4.8-10.8) Red Blood Count 3.24 M/UL (4.70-6.10) L Hemoglobin 9.4 G/DL (14.2-18.0) L Hematocrit 29.6 % (42.0-52.0) L Mean Corpuscular Volume 91 FL (80-99) Mean Corpuscular Hemoglobin 29.1 PG (27.0-31.0) Mean Corpuscular Hemoglobin Concent 31.8 G/DL (32.0-36.0) L Red Cell Distribution Width 19.0 % (11.6-14.8) H Platelet Count 203 K/UL (150-450) Mean Platelet Volume 6.8 FL (6.5-10.1) Neutrophils (%) (Auto) 60.5 % (45.0-75.0) Lymphocytes (%) (Auto) 18.5 % (20.0-45.0) L Monocytes (%) (Auto) 14.9 % (1.0-10.0) H Eosinophils (%) (Auto) 5.0 % (0.0-3.0) H Basophils (%) (Auto) 1.2 % (0.0-2.0) Sodium Level 141 MMOL/L (136-145) Potassium Level 4.9 MMOL/L (3.5-5.1) Chloride Level 106 MMOL/L (98-107) Carbon Dioxide Level 28 MMOL/L (21-32) Anion Gap 7 mmol/L (5-15) Blood Urea Nitrogen 52 mg/dL (7-18) H Creatinine 2.9 MG/DL (0.55-1.30) H Estimat Glomerular Filtration Rate 26.5 mL/min (>60) Glucose Level 124 MG/DL (74-106) H Calcium Level 8.6 MG/DL (8.5-10.1) Intake and Output 07/27/17 07/28/17 19:00 07:00 Intake Total 720 ml Balance 720 ml Intake Oral 720 ml # Bowel Movements 1 Objective General Appearance: WD/WN, no apparent distress, alert EENT: PERRL/EOMI, normal ENT inspection, TMs normal Neck: non-tender, normal alignment, supple, normal inspection Cardiovascular: normal peripheral pulses, no gallop/murmur, no JVD, irregularly irregular Respiratory/Chest: chest wall non-tender, lungs clear, normal breath sounds, no respiratory distress, no accessory muscle use Abdomen: normal bowel sounds, non tender, soft, no organomegaly, no mass Extremities: normal range of motion 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 Continue johnson per urology. (2) Hydronephrosis (3) SOB (shortness of breath) (4) Atrial fibrillation with rapid ventricular response Assessment & Plan: Continue cardizem and eliquis. See cardiology consult note. (5) CHF (congestive heart failure) (6) Diabetes mellitus, type II Assessment & Plan: Continue novolog sliding scale. (7) HTN (hypertension) (8) CHF exacerbation (9) Hypercholesteremia (10) Renal failure Assessment & Plan: ?urinary retention? Await nephrology consult. 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 See urology consult-will require outpatient cystoscopy Status: not improved MARYANNE SMALLS Jul 27, 2017 15:17
[2017-07-27] MEDS ORDERED: Tubing IV Secondary IV ONE (16:02)
[2017-07-27] MEDS ORDERED: NS 500ML ONE (16:02)
[2017-07-27 16:05] VITALS: BP 168/79
[2017-07-27 20:00] VITALS: BP_SYST 163; BP_SYST 168; BP_DIAS 76
[2017-07-27] MEDS: Dyna-Hex 2% Top Sol 2oz TOPIC SCH (20:41)
--- NOTE | 2017-07-27 21:00 | Progress Note ---
DATE: 07/27/2017 SUBJECTIVE: The patient is tolerating Kilpatrick catheter well. He is comfortable and actually feels better with the bladder being decompressed. No significant complaints currently. PHYSICAL EXAMINATION: VITAL SIGNS: Temperature of 98.2, pulse 65, blood pressure 142/72. HEAD AND NECK: Normal. ABDOMEN: Soft and nontender. GENITOURINARY: Kilpatrick catheter is in place with clear urine efflux. LABORATORY VALUES: White blood cell count 8500, hemoglobin 9.4. Sodium 141, potassium 4.9, BUN 52, creatinine 2.9. ASSESSMENT: My assessment on this patient is that he has urinary retention, bilateral hydronephrosis, renal insufficiency, and this looks to be improving with Kilpatrick catheter drainage. RECOMMENDATIONS: To continue the Kilpatrick catheter until BUN and creatinine come down to a stable number to indicate his underlying renal function. After his medical conditions are improved, he can be further evaluated as an outpatient. His current urologic situation stabilized with Kilpatrick catheter in place and I will sign off the case for now. Please call for further input as indicated in report. Arjun Osorio DR: [place] JOB#: [id number] CC:
[2017-07-28] VITALS: BP 168/79
[2017-07-28] MEDS: dilTIAZem HCl 60mg tab ORAL SCH ×2 (00:03→08:51)
[2017-07-28] MEDS: Norco 5mg/325mg tab ORAL PRN ×3 (00:04→15:36)
[2017-07-28] MEDS: Piperacillin/Tazobactam 3.375 GM in D5W 55 ML IVPB SCH (02:41)
[2017-07-28 04:00] VITALS: BP 170/74
[2017-07-28] MEDS: NovoLOG Insulin Flexpen SUBQ SCH ×2 (05:56→11:49)
[2017-07-28 07:11] LABS: BASOPHILS % (AUTO) 1.3 % (0.0-2.0); EOSINOPHILS % (AUTO) 4.6 % (0.0-3.0); LYMPHOCYTES % (AUTO) 18.2 % (20.0-45.0); MEAN CORPUSCULAR HEMOGLOBIN 29.4 PG (27.0-31.0); MEAN CORPUSCULAR HGB CONC 31.7 G/DL (32.0-36.0); MEAN CORPUSCULAR VOLUME 93 FL (80-99); MEAN PLATELET VOLUME 6.3 FL (6.5-10.1); MONOCYTES % (AUTO) 16.7 % (1.0-10.0); NEUTROPHILS % (AUTO) 59.3 % (45.0-75.0); PLATELET COUNT 205 K/UL (150-450); RED BLOOD COUNT 3.34 M/UL (4.70-6.10); RED CELL DISTRIBUTION WIDTH 18.5 % (11.6-14.8); WHITE BLOOD COUNT 8.2 K/UL (4.8-10.8)
[2017-07-28 07:49] LABS: ALANINE AMINOTRANSFERASE 27 U/L (12-78); ALBUMIN/GLOBULIN RATIO 0.6 (1.0-2.7); ANION GAP 15 mmol/L (5-15); ASPARTATE AMINO TRANSFERASE 14 U/L (15-37); CALCIUM 8.5 MG/DL (8.5-10.1); CARBON DIOXIDE 26 MMOL/L (21-32); CHLORIDE 97 MMOL/L (98-107); CREATININE 2.9 MG/DL (0.55-1.30); GLOMERULAR FILTRATION RATE 26.5 mL/min (>60); MAGNESIUM 1.6 MG/DL (1.8-2.4); PHOSPHORUS 4.1 MG/DL (2.5-4.9); POTASSIUM 4.8 MMOL/L (3.5-5.1); SODIUM 138 MMOL/L (136-145); TOTAL PROTEIN 7.1 G/DL (6.4-8.2)
[2017-07-28 08:00] VITALS: BP 141/80
[2017-07-28] MEDS: Carvedilol 12.5mg tab ORAL SCH (08:50)
[2017-07-28] MEDS: Eliquis 2.5mg tablet ORAL SCH (08:50)
[2017-07-28] MEDS: Tamsulosin 0.4mg cap ORAL SCH (08:50)
--- NOTE | 2017-07-28 11:20 | Nephrology Progress Note ---
Assessment/Plan Problem List: (1) Urinary retention (2) Diabetes mellitus type II, uncontrolled (3) Renal failure Assessment admitted for respiratory distress, CHF vs Pneumonia right side Has DM h/o A fib acute renal failure on CRI now Cr 3 h/o bladder outlet obstruction) per AILYN in past Also due to DM and HTN, has 3+ Proteinuria anemia DM HTN R BKA stump wound infested now BLE pain severe protein calorie malnutrition Urinary retention due to bladder out let Obstruction Echo; Left ventricular ejection fraction estimated to be 60-65%. CXR: Since June 02, 2017, interim development of interstitial congestion, right-sided airspace consolidation/edema, and right-sided pleural effusion AILYN: Echogenic kidneys with bilateral hydronephrosis. Large post void residual urine in the bladder. Plan Plan: Keep johnson in, can DC with leg bag Down on Lasix Up on Flomax Avoid nephrotoxics monitor renal parameters med surg? DC planning Subjective ROS Limited/Unobtainable: No Constitutional: Reports: malaise Objective Objective Last 24 Hour Vital Signs Date Time Temp Pulse Resp B/P (MAP) Pulse Ox O2 Delivery O2 Flow Rate FiO2 07/28/17 08:51 65 170/74 07/28/17 08:50 65 170/74 07/28/17 08:00 98.2 87 20 141/80 Room Air 07/28/17 04:01 97 Room Air 21 07/28/17 04:01 Room Air 07/28/17 04:00 98.6 65 18 170/74 97 Room Air 07/28/17 00:03 61 168/79 07/28/17 00:00 98.3 61 20 168/79 94 Room Air 07/27/17 20:41 64 163/76 07/27/17 20:00 98.8 64 20 163/76 98 Room Air 07/27/17 18:39 98.1 07/27/17 16:05 98.1 63 18 168/79 96 Room Air 07/27/17 15:50 63 168/79 07/27/17 12:41 97.5 65 18 113/51 95 Room Air Laboratory Tests 07/28/17 06:00: White Blood Count 8.2, Red Blood Count 3.34L, Hemoglobin 9.8L, Hematocrit 31.0L , Mean Corpuscular Volume 93, Mean Corpuscular Hemoglobin 29.4, Mean Corpuscular Hemoglobin Concent 31.7L, Red Cell Distribution Width 18.5H, Platelet Count 205, Mean Platelet Volume 6.3L, Neutrophils (%) (Auto) 59.3, Lymphocytes (%) (Auto) 18.2L, Monocytes (%) (Auto) 16.7H, Eosinophils (%) (Auto ) 4.6H, Basophils (%) (Auto) 1.3, Sodium Level 138, Potassium Level 4.8, Chloride Level 97L, Carbon Dioxide Level 26, Anion Gap 15, Blood Urea Nitrogen 40H, Creatinine 2.9H, Estimat Glomerular Filtration Rate 26.5, Glucose Level 339 #H, Calcium Level 8.5, Phosphorus Level 4.1, Magnesium Level 1.6L, Total Bilirubin 0.4, Aspartate Amino Transf (AST/SGOT) 14L, Alanine Aminotransferase ( ALT/SGPT) 27, Alkaline Phosphatase 107, Total Protein 7.1, Albumin 2.6L, Globulin 4.5, Albumin/Globulin Ratio 0.6L Height (Feet): 6 Height (Inches): 2.00 Weight (Pounds): 164 TYE TINAJERO Jul 28, 2017 11:20
[2017-07-28] MEDS ORDERED: CARDIZEM60 MG ORAL (11:59)
[2017-07-28] MEDS ORDERED: FINASTERIDE5 MG ORAL (11:59)
[2017-07-28] MEDS ORDERED: FLOMAX0.4 MG ORAL (11:59)
[2017-07-28] MEDS ORDERED: COREG12.5 MG ORAL (11:59)
[2017-07-28] MEDS ORDERED: ELIQUIS2.5 MG ORAL (11:59)
--- NOTE | 2017-07-28 12:01 | Internal Med Progress Note ---
Subjective Date of Service: Jul 28, 2017 Physician Name Smalls,Maryanne Attending Physician Bruno Serrato MD Current Medications Medications (Trade) Dose Ordered Sig/Dragan Route PRN Reason Start Time Stop Time Status Last Admin Dose Admin Acetaminophen (Tylenol) 650 mg Q4H PRN ORAL Fever 07/22/17 22:00 08/21/17 21:59 Acetaminophen/ Hydrocodone Bitart ([place] 5/325) 1 tab Q6H PRN ORAL For Pain 07/22/17 22:00 07/29/17 21:59 07/28/17 08:48 Apixaban (Eliquis) 2.5 mg BID ORAL 07/23/17 18:00 08/22/17 17:59 07/28/17 08:50 Carvedilol (Coreg) 12.5 mg EVERY 12 HOURS ORAL 07/26/17 21:00 08/25/17 20:59 07/28/17 08:50 Chlorhexidine Gluconate (Esmer-Hex 2%) 1 applic DAILY@2000 TOPIC 07/24/17 17:45 08/23/17 17:44 07/27/17 20:41 Dextrose (Dextrose 50%) STAT PRN IV Hypoglycemia 07/22/17 22:00 08/21/17 21:59 Diltiazem HCl (Cardizem) 60 mg Q8H ORAL 07/24/17 08:00 08/23/17 07:59 07/28/17 08:51 Finasteride (Proscar) 5 mg DAILY ORAL 07/25/17 10:30 08/24/17 10:29 07/28/17 08:50 Furosemide (Lasix) 40 mg DAILY IV 07/27/17 09:00 08/26/17 08:59 07/28/17 08:50 Gabapentin (Neurontin) 300 mg BEDTIME ORAL 07/23/17 21:00 08/22/17 20:59 07/27/17 20:40 Insulin Aspart (NovoLOG) BEFORE MEALS AND HS SUBQ 07/23/17 06:30 08/22/17 06:29 07/28/17 11:49 Magnesium Sulfate 100 ml @ 100 mls/hr Q1H IVPB 07/28/17 10:45 07/28/17 12:44 07/28/17 11:42 Ondansetron HCl (Zofran) 4 mg Q6H PRN IVP Nausea & Vomiting 07/22/17 22:00 08/21/17 21:59 Piperacillin Sod/ Tazobactam Sod 3.375 gm/Dextrose 55 ml @ 13.75 mls/ hr Q12H IVPB 07/23/17 15:00 07/30/17 14:59 07/28/17 02:41 Polyethylene Glycol (Miralax) 17 gm DAILYPRN PRN ORAL Constipation 07/22/17 22:00 08/21/17 21:59 Promethazine HCl/ Codeine (Phenergan with Codeine) 5 ml Q4H PRN ORAL For Cough 07/23/17 12:15 08/22/17 12:14 Tamsulosin HCl (Flomax) 0.4 mg BID ORAL 07/25/17 18:00 08/22/17 20:59 07/28/17 08:50 Temazepam (Restoril) 15 mg HSPRN PRN ORAL Insomnia 07/22/17 22:00 07/29/17 21:59 Allergies: Coded Allergies: No Known Allergies (Unverified , 04/25/17) ROS Limited/Unobtainable: No Constitutional: Reports: no symptoms HEENT: Reports: no symptoms Cardiovascular: Reports: no symptoms Respiratory: Reports: no symptoms Gastrointestinal/Abdominal: Reports: no symptoms Genitourinary: Reports: no symptoms Neurologic/Psychiatric: Reports: no symptoms Subjective 66 YO M admitted with shortness of breath. Now atrial fibrillation with rapid ventricular rate. Cover for Int Jonathan-Dr Serrato. Objective Last Vital Signs Date Time Temp Pulse Resp B/P (MAP) Pulse Ox O2 Delivery O2 Flow Rate FiO2 07/28/17 08:51 65 170/74 07/28/17 08:00 98.2 20 Room Air 07/28/17 04:01 97 21 07/26/17 21:55 3.0 Laboratory Tests Test 07/28/17 06:00 White Blood Count 8.2 K/UL (4.8-10.8) Red Blood Count 3.34 M/UL (4.70-6.10) L Hemoglobin 9.8 G/DL (14.2-18.0) L Hematocrit 31.0 % (42.0-52.0) L Mean Corpuscular Volume 93 FL (80-99) Mean Corpuscular Hemoglobin 29.4 PG (27.0-31.0) Mean Corpuscular Hemoglobin Concent 31.7 G/DL (32.0-36.0) L Red Cell Distribution Width 18.5 % (11.6-14.8) H Platelet Count 205 K/UL (150-450) Mean Platelet Volume 6.3 FL (6.5-10.1) L Neutrophils (%) (Auto) 59.3 % (45.0-75.0) Lymphocytes (%) (Auto) 18.2 % (20.0-45.0) L Monocytes (%) (Auto) 16.7 % (1.0-10.0) H Eosinophils (%) (Auto) 4.6 % (0.0-3.0) H Basophils (%) (Auto) 1.3 % (0.0-2.0) Sodium Level 138 MMOL/L (136-145) Potassium Level 4.8 MMOL/L (3.5-5.1) Chloride Level 97 MMOL/L (98-107) L Carbon Dioxide Level 26 MMOL/L (21-32) Anion Gap 15 mmol/L (5-15) Blood Urea Nitrogen 40 mg/dL (7-18) H Creatinine 2.9 MG/DL (0.55-1.30) H Estimat Glomerular Filtration Rate 26.5 mL/min (>60) Glucose Level 339 MG/DL (74-106) #H Calcium Level 8.5 MG/DL (8.5-10.1) Phosphorus Level 4.1 MG/DL (2.5-4.9) Magnesium Level 1.6 MG/DL (1.8-2.4) L Total Bilirubin 0.4 MG/DL (0.2-1.0) Aspartate Amino Transf (AST/SGOT) 14 U/L (15-37) L Alanine Aminotransferase (ALT/SGPT) 27 U/L (12-78) Alkaline Phosphatase 107 U/L (46-116) Total Protein 7.1 G/DL (6.4-8.2) Albumin 2.6 G/DL (3.4-5.0) L Globulin 4.5 g/dL Albumin/Globulin Ratio 0.6 (1.0-2.7) L Objective General Appearance: WD/WN, no apparent distress, alert EENT: PERRL/EOMI, normal ENT inspection, TMs normal Neck: non-tender, normal alignment, supple, normal inspection Cardiovascular: normal peripheral pulses, no gallop/murmur, no JVD, irregularly irregular Respiratory/Chest: chest wall non-tender, lungs clear, normal breath sounds, no respiratory distress, no accessory muscle use Abdomen: normal bowel sounds, non tender, soft, no organomegaly, no mass Extremities: normal range of motion 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 Continue johnson per urology. (2) Hydronephrosis (3) SOB (shortness of breath) (4) Atrial fibrillation with rapid ventricular response Assessment & Plan: Continue cardizem and eliquis. See cardiology consult note. (5) CHF (congestive heart failure) (6) Diabetes mellitus, type II Assessment & Plan: Continue novolog sliding scale. (7) HTN (hypertension) (8) CHF exacerbation (9) Hypercholesteremia (10) Renal failure Assessment & Plan: ?urinary retention? Await nephrology consult. 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 See urology consult-will require outpatient cystoscopy Status: stable Assessment/Plan [facility] to [facility] today MARYANNE SMALLS Jul 28, 2017 12:01
[2017-07-28 12:39] VITALS: BP 133/76
--- NOTE | 2017-07-28 13:58 | Pulmonology Progress Note ---
Assessment/Plan Problems: (1) Respiratory distress (2) Pulmonary edema (3) Atrial fibrillation (4) Pneumonia (5) Right BKA infection Assessment/Plan improving titrate cardiac meds anemia w/u in progress check electrolytes periodically dc to [facility] process Subjective ROS Limited/Unobtainable: No Constitutional: Reports: no symptoms Respiratory: Reports: no symptoms Allergies: Coded Allergies: No Known Allergies (Unverified , 04/25/17) Objective Last 24 Hour Vital Signs Date Time Temp Pulse Resp B/P (MAP) Pulse Ox O2 Delivery O2 Flow Rate FiO2 07/28/17 12:39 98.2 80 18 133/76 95 07/28/17 08:51 65 170/74 07/28/17 08:50 65 170/74 07/28/17 08:00 98.2 87 20 141/80 Room Air 07/28/17 04:01 97 Room Air 21 07/28/17 04:01 Room Air 07/28/17 04:00 98.6 65 18 170/74 97 Room Air 07/28/17 00:03 61 168/79 07/28/17 00:00 98.3 61 20 168/79 94 Room Air 07/27/17 20:41 64 163/76 07/27/17 20:00 98.8 64 20 163/76 98 Room Air 07/27/17 18:39 98.1 07/27/17 16:05 98.1 63 18 168/79 96 Room Air 07/27/17 15:50 63 168/79 Objective General Appearance: cachetic Lines, tubes and drains: peripheral HEENT: normocephalic, atraumatic Neck: non-tender, normal alignment Respiratory/Chest: chest wall non-tender, lungs clear Cardiovascular/Chest: normal peripheral pulses, regular rhythm, no gallop/ murmur Abdomen: normal bowel sounds, non tender Genitourinary/Rectal: normal genital exam Extremities: normal range of motion, non-tender Laboratory Tests 07/28/17 06:00: White Blood Count 8.2, Red Blood Count 3.34L, Hemoglobin 9.8L, Hematocrit 31.0L , Mean Corpuscular Volume 93, Mean Corpuscular Hemoglobin 29.4, Mean Corpuscular Hemoglobin Concent 31.7L, Red Cell Distribution Width 18.5H, Platelet Count 205, Mean Platelet Volume 6.3L, Neutrophils (%) (Auto) 59.3, Lymphocytes (%) (Auto) 18.2L, Monocytes (%) (Auto) 16.7H, Eosinophils (%) (Auto ) 4.6H, Basophils (%) (Auto) 1.3, Sodium Level 138, Potassium Level 4.8, Chloride Level 97L, Carbon Dioxide Level 26, Anion Gap 15, Blood Urea Nitrogen 40H, Creatinine 2.9H, Estimat Glomerular Filtration Rate 26.5, Glucose Level 339 #H, Calcium Level 8.5, Phosphorus Level 4.1, Magnesium Level 1.6L, Total Bilirubin 0.4, Aspartate Amino Transf (AST/SGOT) 14L, Alanine Aminotransferase ( ALT/SGPT) 27, Alkaline Phosphatase 107, Total Protein 7.1, Albumin 2.6L, Globulin 4.5, Albumin/Globulin Ratio 0.6L Current Medications Medications (Trade) Dose Ordered Sig/Dragan Route PRN Reason Start Time Stop Time Status Last Admin Dose Admin Acetaminophen (Tylenol) 650 mg Q4H PRN ORAL Fever 07/22/17 22:00 08/21/17 21:59 Acetaminophen/ Hydrocodone Bitart ([place] 5/325) 1 tab Q6H PRN ORAL For Pain 07/22/17 22:00 07/29/17 21:59 07/28/17 08:48 Apixaban (Eliquis) 2.5 mg BID ORAL 07/23/17 18:00 08/22/17 17:59 07/28/17 08:50 Carvedilol (Coreg) 12.5 mg EVERY 12 HOURS ORAL 07/26/17 21:00 08/25/17 20:59 07/28/17 08:50 Chlorhexidine Gluconate (Esmer-Hex 2%) 1 applic DAILY@1999 TOPIC 07/24/17 17:45 08/23/17 17:44 07/27/17 20:41 Dextrose (Dextrose 50%) STAT PRN IV Hypoglycemia 07/22/17 22:00 08/21/17 21:59 Diltiazem HCl (Cardizem) 60 mg Q8H ORAL 07/24/17 08:00 08/23/17 07:59 07/28/17 08:51 Finasteride (Proscar) 5 mg DAILY ORAL 07/25/17 10:30 08/24/17 10:29 07/28/17 08:50 Furosemide (Lasix) 40 mg DAILY IV 07/27/17 09:00 08/26/17 08:59 07/28/17 08:50 Gabapentin (Neurontin) 300 mg BEDTIME ORAL 07/23/17 21:00 08/22/17 20:59 07/27/17 20:40 Insulin Aspart (NovoLOG) BEFORE MEALS AND HS SUBQ 07/23/17 06:30 08/22/17 06:29 07/28/17 11:49 Ondansetron HCl (Zofran) 4 mg Q6H PRN IVP Nausea & Vomiting 07/22/17 22:00 08/21/17 21:59 Piperacillin Sod/ Tazobactam Sod 3.375 gm/Dextrose 55 ml @ 13.75 mls/ hr Q12H IVPB 07/23/17 15:00 07/30/17 14:59 07/28/17 02:41 Polyethylene Glycol (Miralax) 17 gm DAILYPRN PRN ORAL Constipation 07/22/17 22:00 08/21/17 21:59 Promethazine HCl/ Codeine (Phenergan with Codeine) 5 ml Q4H PRN ORAL For Cough 07/23/17 12:15 08/22/17 12:14 Tamsulosin HCl (Flomax) 0.4 mg BID ORAL 07/25/17 18:00 08/22/17 20:59 07/28/17 08:50 Temazepam (Restoril) 15 mg HSPRN PRN ORAL Insomnia 07/22/17 22:00 07/29/17 21:59 BRIAN HERNANDEZ Jul 28, 2017 13:58
--- NOTE | 2017-07-28 14:03 | Infectious Diseases Prog Note ---
Assessment/Plan Assessment/Plan SOB- possibly multifactorial: combination of acute CHF exacerbation and possible PNA (HCAP);improving -CXR: interim development of interstitial congestion,right-sided airspace consolidation/edema, and right-sided pleural effusion -sp cx Normal mildred -Bcx NTD Afebrile, no leukocytosis bilateral hydronephrosis.Large post void residual urine in the bladder.Small right pleural effusion.Bilateral renal cysts. Recent Right BKA stump wound infection with Acute OM s/p revision 06/09; on Rx; decreasing inflammatory markers -OR findings: The right [id number] amputation stump had prominent edema. The severed bone appeared healthy. The circulation appeared adequate. The posterior tibial vessels were patent as were the anterior tibial. -path: acute on chronic OM -superficial wound cx: +4 Serratia Marcecens (S. Ceftriaxone, levo/cipro, Bactrim, Zosyn), +4 E. cloace (S. Ceftriaxone, levo/Cipro, Zosyn; R bactrim); possible that these represents colonizer as wound cx was superficial and likely pathogens could still be Strep sp and MSSA. -s/p admission in [facility] in March for stump infection s/p 4 weeks of PO abx (pt unsure of abx) -06/03 ESR 116, CRP 6.1; 06/12 ESR 113, CRP >12; 07/24 CRP 1.2, ESR 82 Renal insufficiency -Renal US: Echogenic kidneys with Hyperlipidemia. History of hypoglycemia. Hypertension. Diabetes. Atrial fibrillation. Chronic anemia Cachexia Plan: Switch Zosyn # 6/ 7 to PO Augmentin to complete course SP IV Vancomycin #3 07/25 -s/p Ertapenem 06/11-07/22 -s/p 2d Zosyn 06/11 -s/p 7d Ceftriaxone 06/09 -s/p 5d IV Vanco, 4d Zosyn / -f/u cx -Monitor CBC/BMP, temperatures Subjective Allergies: Coded Allergies: No Known Allergies (Unverified , 04/25/17) Subjective afebrile no leukocytosis Bcx NTD sp cx NF Objective Vital Signs Last 24 Hour Vital Signs Date Time Temp Pulse Resp B/P (MAP) Pulse Ox O2 Delivery O2 Flow Rate FiO2 07/28/17 12:39 98.2 80 18 133/76 95 07/28/17 08:51 65 170/74 11/27/17 08:50 65 170/74 07/28/17 08:00 98.2 87 20 141/80 Room Air 07/28/17 04:01 97 Room Air 21 07/28/17 04:01 Room Air 07/28/17 04:00 98.6 65 18 170/74 97 Room Air 07/28/17 00:03 61 168/79 07/28/17 00:00 98.3 61 20 168/79 94 Room Air 07/27/17 20:41 64 163/76 07/27/17 20:00 98.8 64 20 163/76 98 Room Air 07/27/17 18:39 98.1 07/27/17 16:05 98.1 63 18 168/79 96 Room Air 07/27/17 15:50 63 168/79 Height (Feet): 6 Height (Inches): 2.00 Weight (Pounds): 164 Objective General Appearance: cachetic HEENT: normocephalic, atraumatic Neck: non-tender, supple Respiratory/Chest: chest wall non-tender, bibasilar crackles Breasts: no masses Cardiovascular/Chest: normal rate Abdomen: normal bowel sounds, soft EXT: R stump banded. view wound care pictures,. stump with sutures in place, no signs of infection. Laboratory Tests Test 07/28/17 06:00 White Blood Count 8.2 K/UL (4.8-10.8) Red Blood Count 3.34 M/UL (4.70-6.10) L Hemoglobin 9.8 G/DL (14.2-18.0) L Hematocrit 31.0 % (42.0-52.0) L Mean Corpuscular Volume 93 FL (80-99) Mean Corpuscular Hemoglobin 29.4 PG (27.0-31.0) Mean Corpuscular Hemoglobin Concent 31.7 G/DL (32.0-36.0) L Red Cell Distribution Width 18.5 % (11.6-14.8) H Platelet Count 205 K/UL (150-450) Mean Platelet Volume 6.3 FL (6.5-10.1) L Neutrophils (%) (Auto) 59.3 % (45.0-75.0) Lymphocytes (%) (Auto) 18.2 % (20.0-45.0) L Monocytes (%) (Auto) 16.7 % (1.0-10.0) H Eosinophils (%) (Auto) 4.6 % (0.0-3.0) H Basophils (%) (Auto) 1.3 % (0.0-2.0) Sodium Level 138 MMOL/L (136-145) Potassium Level 4.8 MMOL/L (3.5-5.1) Chloride Level 97 MMOL/L (98-107) L Carbon Dioxide Level 26 MMOL/L (21-32) Anion Gap 15 mmol/L (5-15) Blood Urea Nitrogen 40 mg/dL (7-18) H Creatinine 2.9 MG/DL (0.55-1.30) H Estimat Glomerular Filtration Rate 26.5 mL/min (>60) Glucose Level 339 MG/DL (74-106) #H Calcium Level 8.5 MG/DL (8.5-10.1) Phosphorus Level 4.1 MG/DL (2.5-4.9) Magnesium Level 1.6 MG/DL (1.8-2.4) L Total Bilirubin 0.4 MG/DL (0.2-1.0) Aspartate Amino Transf (AST/SGOT) 14 U/L (15-37) L Alanine Aminotransferase (ALT/SGPT) 27 U/L (12-78) Alkaline Phosphatase 107 U/L (46-116) Total Protein 7.1 G/DL (6.4-8.2) Albumin 2.6 G/DL (3.4-5.0) L Globulin 4.5 g/dL Albumin/Globulin Ratio 0.6 (1.0-2.7) L Current Medications Medications (Trade) Dose Ordered Sig/Dragan Route PRN Reason Start Time Stop Time Status Last Admin Dose Admin Acetaminophen (Tylenol) 650 mg Q4H PRN ORAL Fever 07/22/17 22:00 08/21/17 21:59 Acetaminophen/ Hydrocodone Bitart ([place] 5/325) 1 tab Q6H PRN ORAL For Pain 07/22/17 22:00 07/29/17 21:59 07/28/17 08:48 Apixaban (Eliquis) 2.5 mg BID ORAL 07/23/17 18:00 08/22/17 17:59 07/28/17 08:50 Carvedilol (Coreg) 12.5 mg EVERY 12 HOURS ORAL 07/26/17 21:00 08/25/17 20:59 07/28/17 08:50 Chlorhexidine Gluconate (Esmer-Hex 2%) 1 applic DAILY@2000 TOPIC 07/24/17 17:45 08/23/17 17:44 07/27/17 20:41 Dextrose (Dextrose 50%) STAT PRN IV Hypoglycemia 07/22/17 22:00 08/21/17 21:59 Diltiazem HCl (Cardizem) 60 mg Q8H ORAL 07/24/17 08:00 08/23/17 07:59 07/28/17 08:51 Finasteride (Proscar) 5 mg DAILY ORAL 07/25/17 10:30 08/24/17 10:29 07/28/17 08:50 Furosemide (Lasix) 40 mg DAILY IV 07/27/17 09:00 08/26/17 08:59 07/28/17 08:50 Gabapentin (Neurontin) 300 mg BEDTIME ORAL 07/23/17 21:00 08/22/17 20:59 07/27/17 20:40 Insulin Aspart (NovoLOG) BEFORE MEALS AND HS SUBQ 07/23/17 06:30 08/22/17 06:29 07/28/17 11:49 Ondansetron HCl (Zofran) 4 mg Q6H PRN IVP Nausea & Vomiting 07/22/17 22:00 08/21/17 21:59 Piperacillin Sod/ Tazobactam Sod 3.375 gm/Dextrose 55 ml @ 13.75 mls/ hr Q12H IVPB 07/23/17 15:00 07/30/17 14:59 07/28/17 02:41 Polyethylene Glycol (Miralax) 17 gm DAILYPRN PRN ORAL Constipation 07/22/17 22:00 08/21/17 21:59 Promethazine HCl/ Codeine (Phenergan with Codeine) 5 ml Q4H PRN ORAL For Cough 07/23/17 12:15 08/22/17 12:14 Tamsulosin HCl (Flomax) 0.4 mg BID ORAL 07/25/17 18:00 08/22/17 20:59 07/28/17 08:50 Temazepam (Restoril) 15 mg HSPRN PRN ORAL Insomnia 07/22/17 22:00 07/29/17 21:59 Liz Guevara M.D. Jul 28, 2017 14:03
[2017-07-28] MEDS ORDERED: AUGMENTIN 500-1 EACH ORAL (15:05)
--- NOTE | 2017-07-28 23:23 | Consultation ---
History of Present Illness General Date patient seen: Jul 27, 2017 Chief Complaint: Dyspnea/Respdistress Reason for Consultation: dyspnea Present Illness HPI 66-year-old male who presents with chief complaint of shortness of breath. the pt has hx of depression and pw depressive sxs Allergies: Coded Allergies: No Known Allergies (Unverified , 04/25/17) Medication History Scheduled Amoxicillin/Potassium Clav 500-125 Tablet* (Augmentin 500-125 Tablet*), 1 TAB ORAL Q12HR, (Reported) Apixaban (Eliquis), 2.5 MG ORAL BID Atorvastatin (Lipitor), 80 MG ORAL BEDTIME, (Reported) Carvedilol (Coreg), 12.5 MG ORAL EVERY 12 HOURS Diltiazem Hcl* (Cardizem*), 60 MG ORAL Q8H Finasteride (Finasteride), 5 MG ORAL DAILY Furosemide* (Lasix*), 20 MG ORAL DAILY, (Reported) Gabapentin (Neurontin), 300 MG ORAL BEDTIME, (Reported) Insulin Aspart (Novolog Flexpen), 0 UNITS SUBQ BEFORE MEALS AND HS Insulin Detemir (Levemir Flexpen), 10 UNITS SUBQ BEDTIME Multivitamin With Minerals (Multivitamins With Minerals*), 1 TAB ORAL DAILY, ( Reported) Nifedipine Xl* (Procardia Xl*), 30 MG ORAL DAILY, (Reported) Omeprazole (Omeprazole), 20 MG ORAL DAILY, (Reported) Psyllium Husk (Metamucil), 1 TSP PO DAILY, (Reported) Tamsulosin HCl (Flomax), 0.4 MG ORAL BID Tamsulosin Hcl (Tamsulosin Hcl*), 0.4 MG ORAL BEDTIME, (Reported) Scheduled PRN Acetaminophen* (Acetaminophen 325MG Tablet*), 2 TAB ORAL Q6H PRN for Moderate Breakthru Pain (5-7), (Reported) Acetaminophen* (Tylenol Extra Strength*), 500 MG ORAL Q6H PRN for Mild Pain ( Pain Scale 1-3), (Reported) Hydrocodone Bit/Acetaminophen 5-325* ([place] 5-325*), 1 TAB ORAL Q6H PRN Ipratropium/Albuterol Sulfate (DuoNeb 0.5-3(2.5)mg/3ml), 3 ML HHN Q4HR PRN for Shortness of Breath, (Reported) Polyethylene Glycol 3350* (Miralax*), 17 GM ORAL HSPRN PRN Discontinued Medications Acetaminophen* (Acetaminophen 325MG Tablet*), 650 MG ORAL Q4H PRN Discontinued Reason: Medication dose changed Amlodipine Besylate (Norvasc), 2.5 MG ORAL DAILY, (Reported) Discontinued Reason: MD discontinued med Carvedilol (Coreg), 6.25 MG ORAL EVERY 12 HOURS Discontinued Reason: Medication dose changed Ertapenem Sodium* (INVanz*), 1 GM IVPB Q24H Discontinued Reason: MD discontinued med Finasteride (Finasteride), 1 MG PO, (Reported) Discontinued Reason: MD discontinued med Furosemide* (Lasix*), 40 MG ORAL DAILY Discontinued Reason: Medication dose changed Insulin Aspart (Novolog Flexpen), 3 UNITS SUBQ NOVOTIAC Discontinued Reason: Medication dose changed Lansoprazole* (Lansoprazole*), 30 MG ORAL DAILY Discontinued Reason: MD discontinued med Nifedipine Xl* (Procardia Xl*), 60 MG ORAL DAILY Discontinued Reason: Medication dose changed Patient History Healthcare decision maker Resuscitation status Full Code Advanced Directive on File Yes Physical Exam Last 24 Hour Vital Signs Date Time Temp Pulse Resp B/P (MAP) Pulse Ox O2 Delivery O2 Flow Rate FiO2 07/28/17 12:39 98.2 80 18 133/76 95 07/28/17 12:39 Room Air 07/28/17 08:51 65 170/74 07/28/17 08:50 65 170/74 07/28/17 08:00 Room Air 07/28/17 08:00 98.2 87 20 141/80 Room Air 07/28/17 04:01 97 Room Air 21 07/28/17 04:01 Room Air 07/28/17 04:00 98.6 65 18 170/74 97 Room Air 07/28/17 00:03 61 168/79 07/28/17 00:00 98.3 61 20 168/79 94 Room Air Intake and Output 07/28/17 07/29/17 19:00 07:00 Intake Total 480 ml Balance 480 ml Intake Oral 480 ml Laboratory Tests Test 07/28/17 06:00 White Blood Count 8.2 K/UL (4.8-10.8) Red Blood Count 3.34 M/UL (4.70-6.10) L Hemoglobin 9.8 G/DL (14.2-18.0) L Hematocrit 31.0 % (42.0-52.0) L Mean Corpuscular Volume 93 FL (80-99) Mean Corpuscular Hemoglobin 29.4 PG (27.0-31.0) Mean Corpuscular Hemoglobin Concent 31.7 G/DL (32.0-36.0) L Red Cell Distribution Width 18.5 % (11.6-14.8) H Platelet Count 205 K/UL (150-450) Mean Platelet Volume 6.3 FL (6.5-10.1) L Neutrophils (%) (Auto) 59.3 % (45.0-75.0) Lymphocytes (%) (Auto) 18.2 % (20.0-45.0) L Monocytes (%) (Auto) 16.7 % (1.0-10.0) H Eosinophils (%) (Auto) 4.6 % (0.0-3.0) H Basophils (%) (Auto) 1.3 % (0.0-2.0) Sodium Level 138 MMOL/L (136-145) Potassium Level 4.8 MMOL/L (3.5-5.1) Chloride Level 97 MMOL/L (98-107) L Carbon Dioxide Level 26 MMOL/L (21-32) Anion Gap 15 mmol/L (5-15) Blood Urea Nitrogen 40 mg/dL (7-18) H Creatinine 2.9 MG/DL (0.55-1.30) H Estimat Glomerular Filtration Rate 26.5 mL/min (>60) Glucose Level 339 MG/DL (74-106) #H Calcium Level 8.5 MG/DL (8.5-10.1) Phosphorus Level 4.1 MG/DL (2.5-4.9) Magnesium Level 1.6 MG/DL (1.8-2.4) L Total Bilirubin 0.4 MG/DL (0.2-1.0) Aspartate Amino Transf (AST/SGOT) 14 U/L (15-37) L Alanine Aminotransferase (ALT/SGPT) 27 U/L (12-78) Alkaline Phosphatase 107 U/L (46-116) Total Protein 7.1 G/DL (6.4-8.2) Albumin 2.6 G/DL (3.4-5.0) L Globulin 4.5 g/dL Albumin/Globulin Ratio 0.6 (1.0-2.7) L Height (Feet): 6 Height (Inches): 2.00 Weight (Pounds): 164 Assessment/Plan Status: stable Assessment/Plan mdd Nadia Moss M.D. Jul 28, 2017 23:23
--- NOTE | 2017-07-28 23:24 | General Progress Note ---
Subjective Date patient seen: Jul 28, 2017 Neurologic/Psychiatric: Reports: anxiety, depressed, emotional problems Allergies: Coded Allergies: No Known Allergies (Unverified , 04/25/17) Objective Last 24 Hour Vital Signs Date Time Temp Pulse Resp B/P (MAP) Pulse Ox O2 Delivery O2 Flow Rate FiO2 07/28/17 12:39 98.2 80 18 133/76 95 07/28/17 12:39 Room Air 07/28/17 08:51 65 170/74 07/28/17 08:50 65 170/74 07/28/17 08:00 Room Air 07/28/17 08:00 98.2 87 20 141/80 Room Air 07/28/17 04:01 97 Room Air 21 07/28/17 04:01 Room Air 07/28/17 04:00 98.6 65 18 170/74 97 Room Air 07/28/17 00:03 61 168/79 07/28/17 00:00 98.3 61 20 168/79 94 Room Air Intake and Output 07/28/17 07/29/17 19:00 07:00 Intake Total 480 ml Balance 480 ml Intake Oral 480 ml Laboratory Tests 07/28/17 06:00: White Blood Count 8.2, Red Blood Count 3.34L, Hemoglobin 9.8L, Hematocrit 31.0L , Mean Corpuscular Volume 93, Mean Corpuscular Hemoglobin 29.4, Mean Corpuscular Hemoglobin Concent 31.7L, Red Cell Distribution Width 18.5H, Platelet Count 205, Mean Platelet Volume 6.3L, Neutrophils (%) (Auto) 59.3, Lymphocytes (%) (Auto) 18.2L, Monocytes (%) (Auto) 16.7H, Eosinophils (%) (Auto ) 4.6H, Basophils (%) (Auto) 1.3, Sodium Level 138, Potassium Level 4.8, Chloride Level 97L, Carbon Dioxide Level 26, Anion Gap 15, Blood Urea Nitrogen 40H, Creatinine 2.9H, Estimat Glomerular Filtration Rate 26.5, Glucose Level 339 #H, Calcium Level 8.5, Phosphorus Level 4.1, Magnesium Level 1.6L, Total Bilirubin 0.4, Aspartate Amino Transf (AST/SGOT) 14L, Alanine Aminotransferase ( ALT/SGPT) 27, Alkaline Phosphatase 107, Total Protein 7.1, Albumin 2.6L, Globulin 4.5, Albumin/Globulin Ratio 0.6L Height (Feet): 6 Height (Inches): 2.00 Weight (Pounds): 164 Nadia Flanagan M.D. Jul 28, 2017 23:23
--- NOTE | 2017-07-29 11:34 | Discharge Summary ---
Discharge Summary Hospital Course Date of Admission Jul 22, 2017 at 21:28 Date of Discharge Jul 28, 2017 at 15:45 Admitting Diagnosis congested heart failure/shortness of breath HPI Dario Tavarez is a 66 year old male who was admitted on Jul 22, 2017 at 21: 28 for Congestive Heart Failure, Shortness Of Breath Hospital Course dc summary #[id number] Discharge Medications New Medications: Apixaban (Eliquis) 2.5 Mg Tablet 2.5 MG ORAL BID for 30 Days, TAB Carvedilol (Coreg) 12.5 Mg Tablet 12.5 MG ORAL EVERY 12 HOURS for 30 Days, TAB Diltiazem Hcl* (Cardizem*) 60 Mg Tablet 60 MG ORAL Q8H for 30 Days, TAB Finasteride (Finasteride) 5 Mg Tablet 5 MG ORAL DAILY for 30 Days, TAB Tamsulosin HCl (Flomax) 0.4 Mg Cap.er.24h 0.4 MG ORAL BID for 30 Days, CAP Continued Medications: Acetaminophen* (Acetaminophen 325MG Tablet*) 325 Mg Tablet 2 TAB ORAL Q6H PRN for Moderate Breakthru Pain (5-7) MDD 3000mg Acetaminophen* (Tylenol Extra Strength*) 500 Mg Tablet 500 MG ORAL Q6H PRN for Mild Pain (Pain Scale 1-3) Amoxicillin/Potassium Clav 500-125 Tablet* (Augmentin 500-125 Tablet*) 1 Each Tablet 1 TAB ORAL Q12HR for 1 Day, TAB Atorvastatin (Lipitor) 80 Mg Tablet 80 MG ORAL BEDTIME, #30 TAB 0 Refills Furosemide* (Lasix*) 20 Mg Tablet 20 MG ORAL DAILY Gabapentin (Neurontin) 300 Mg Capsule 300 MG ORAL BEDTIME, #7 CAP 0 Refills Hydrocodone Bit/Acetaminophen 5-325* (Waterflow 5-325*) 1 Each Tablet 1 TAB ORAL Q6H PRN, #30 TAB 0 Refills Insulin Aspart (Novolog Flexpen) 100 Unit/1 Ml Insuln.pen 0 UNITS SUBQ BEFORE MEALS AND HS, #1 EA Insulin Detemir (Levemir Flexpen) 100 Unit/1 Ml Insuln.pen 10 UNITS SUBQ BEDTIME, #1 EA Ipratropium/Albuterol Sulfate (DuoNeb 0.5-3(2.5)mg/3ml) 3 Ml Ampul.neb 3 ML HHN Q4HR PRN for Shortness of Breath Multivitamin With Minerals (Multivitamins With Minerals*) 1 Each Tablet 1 TAB ORAL DAILY Nifedipine Xl* (Procardia Xl*) 30 Mg Tab.er.24 30 MG ORAL DAILY Omeprazole (Omeprazole) 20 Mg Capsule.dr 20 MG ORAL DAILY Polyethylene Glycol 3350* (Miralax*) 17 Gm Powd.pack 17 GM ORAL HSPRN PRN, #30 PACK Psyllium Husk (Metamucil) 660 Gm Powder 1 TSP PO DAILY Tamsulosin Hcl (Tamsulosin Hcl*) 0.4 Mg Cap.er.24h 0.4 MG ORAL BEDTIME, CAP Discontinued Medications: Carvedilol (Coreg) 6.25 Mg Tablet 6.25 MG ORAL EVERY 12 HOURS for 30 Days, TAB Discharge Condition Upon Discharge: stable Discharge Disposition Patient was discharged to SNF/Subacute Facility(03) Discharge Diagnoses: Discharge Instructions Discharge Instructions Special Instructions I have been assigned to complete a D/C Summary on this account. I was not involved in the patient management Ellie Armando NP (Vanchtein) Jul 29, 2017 11:34
--- NOTE | 2017-07-29 12:28 | Diagnostic Imaging Report ---
APPROVED REPORT CPT Code: 37811 Present Symptoms Comments: R/O DVT RIGHT LEG: Venous imaging reveals a patent deep venous system. There is no evidence of thrombus within the common femoral, and superficial femoral veins. The greater saphenous vein is also within normal limits. Doppler indicates normal spontaneous flow within these segments. The popliteal or tibial segments not imaged, due to above the knee amputation. LEFT LEG: Venous imaging reveals a patent deep venous system. There is no evidence of thrombus within the femoral, popliteal or tibial segments. The greater saphenous vein is also within normal limits. Doppler indicates normal spontaneous flow within these segments.
--- NOTE | 2017-07-29 18:45 | Discharge Summary 2 SIG ---
DATE OF ADMISSION: 07/22/2017 DATE OF DISCHARGE: 07/28/2017 REASON FOR ADMISSION: 66-year-old male, resident of the shelter facility, with past medical history of diabetes and hypertension, presented with respiratory distress. The patient had no history of asthma or COPD. No fever. No chills. He denied cough. Denied chest pain. ABG on room air revealed pulse oximetry of 87%. The patient was required placement on 4 L of simple mask. Pulse oximetry - 95% afterwards. Pro BNP was elevated- 3722. Troponin was negative. EKG revealed normal sinus rhythm, no acute ischemic changes. No leukocytosis. Anemia with hemoglobin- 8.8 and hematocrit- 29. BUN -57, creatinine -2.5. Chest x-ray revealed overall interstitial congestion, right-sided consolidation/edema , and right-sided pleural effusion. The patient was admitted for further management for shortness of breath, acute renal failure, possible pneumonia, possible CHF exacerbation, and pulmonary edema. HOSPITAL STAY: The patient was admitted to [facility]. Enterprise Manager closely followed. Supplemental oxygen provided as needed to keep pulse oximetry above 92%. The patient was started on diuretic. Renal parameters and electrolytes were closely monitored. Intake and output was closely monitored. Farm Machinery Erector followed the patient along with chief analytics officer. Serial troponin were negative. EKG revealed sinus rhythm, no acute ischemic changes. The patient was ruled out for acute CO. The patient demonstrated occasional episodes of paroxysmal atrial fibrillation with rapid ventricular response. Rate was controlled with Cardizem and Coreg. The patient was on anticoagulation with Eliquis. ID doctor followed. The patient likely had healthcare-associated pneumonia. The patient was on empiric antibiotic. Sputum culture was negative. Blood cultures were negative. Followup chest x-ray revealed improved but persistent right mid and lower lung infiltrate and pleural fluid. Antibiotic changed to oral upon discharge to complete the course. 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 Cook Syrup Maker closely followed for acute renal failure. The patient undergone renal ultrasound which revealed echogenic kidneys with bilateral hydronephrosis and large postvoid residual urine in the bladder. Kilpatrick catheter was inserted. Urologist had seen and evaluated the patient and per urologist , hydronephrosis and renal insufficiency were likely secondary to poor emptying of the bladder. Prostate was not impressive for enlargement on clinical examination. In addition, significant chronic renal disease also could contributed to his current renal status. Urologist recommended to leave Kilpatrick catheter in place and monitor renal function. The patient would need cystoscopy and further workup as an outpatient when renal parameters improved. Renal parameters remained without significant change. Cook Syrup Maker closely followed. Kilpatrick catheter was continued. Lasix dose was decreased. Flomax dose was increased. The patient will need close monitoring of renal parameters as an outpatient. Per recreation assistant, acute renal failure was likely secondary to diabetes, hypertension, +3 proteinuria, and history of bladder outlet obstruction. Urinary retention was likely secondary to bladder outlet obstruction. An echocardiogram revealed preserved ejection fraction of 60% to 65% and right ventricular systolic pressure of 58 consistent with [id number] pulmonary hypertension as well as moderate tricuspid regurgitation and moderate left ventricular hypertrophy. Psychiatrist had seen and evaluated the patient, diagnosed him with major depressive disorder, and started on Lexapro. Blood sugar was managed with long acting Levemir and sliding scale of insulin on as needed basis. Hemoglobin A1c- 7.2, nearly at goal. Blood pressure was stable with current regimen. Lipid panel was within normal limits. Anemia workup was consistent with anemia of chronic disease. The patient clinically improved and was able to be weaned off supplemental oxygen. Patient was on the room air with stable pulse oximetry prior to discharge. Shortness of breath was likely multifactorial due to pulmonary edema and possible healthcare-associated pneumonia. The patient was stable for discharge. FINAL DIAGNOSES: 1. Shortness of breath, resolved. 2. Pulmonary edema 3. Probably acute congestive heart failure exacerbation, 4. Paroxysmal atrial fibrillation with rapid ventricular response. 5. Acute renal failure on chronic renal insufficiency. 6. Probably healthcare-associated pneumonia. 7. Hypertension. 8. Diabetes mellitus Type 2 9. Recent [id number] amputation stump infection, status post revision on 06/09/2017, status post treatment. 10. Urinary retention due to bladder outlet obstruction. 11. Benign prostatic hypertrophy. 12. Peripheral vascular disease. 13. Major depressive disorder. 14. Bilateral hydronephrosis. DISCHARGE MEDICATIONS: See medication reconciliation list. DISCHARGE INSTRUCTIONS: The patient was discharged to shelter facility on oral antibiotic to complete the course. Follow up with renal parameters. The patient will need outpatient followup with urology. Bruno Serrato M.D. I have been assigned to dictate discharge summary on this account and I was not involved in the patient's management. Ellie Armando (Vanchtein) N.PLuis DR: Thad JOB#: [id number] CC: [email or web address]
--- NOTE | 2017-07-30 17:17 | Cardiology Report ---
APPROVED REPORT EKG Measurement Heart [id number] Normal sinus rhythm Possible Left atrial enlargement Anteroseptal infarct, age undetermined Abnormal ECG
== END 2017-07-28 15:45 | DRG 291 ==
LOC: EDBD 18:33 → EMR 21:25 → 2E 21:28 → EDBEDREQ 21:32 → 4E 07-27 18:16
DX: I50.33 Acute on chronic diastolic (congestive) heart failure (principal); J18.9 Pneumonia, unspecified organism; E43 Unspecified severe protein-calorie malnutrition; N17.9 Acute kidney failure, unspecified; E11.22 Type 2 diabetes mellitus with diabetic chronic kidney disease; E11.51 Type 2 diabetes mellitus with diabetic peripheral angiopathy without gangrene; T87.43 Infection of amputation stump, right lower extremity; N13.39 Other hydronephrosis; N13.8 Other obstructive and reflux uropathy; I48.0 Paroxysmal atrial fibrillation; I50.9 Heart failure, unspecified; E87.5 Hyperkalemia; Z68.21 Body mass index [BMI] 21.0-21.9, adult; N18.9 Chronic kidney disease, unspecified; Z79.4 Long term (current) use of insulin; Z89.511 Acquired absence of right leg below knee; E78.00 Pure hypercholesterolemia, unspecified; Z87.891 Personal history of nicotine dependence; I12.9 Hypertensive chronic kidney disease with stage 1 through stage 4 chronic kidney disease, or unspecified chronic kidney disease; N32.0 Bladder-neck obstruction; R33.8 Other retention of urine; Y83.5 Amputation of limb(s) as the cause of abnormal reaction of the patient, or of later complication, without mention of misadventure at the time of the procedure; F32.9 Major depressive disorder, single episode, unspecified; K21.9 Gastro-esophageal reflux disease without esophagitis; Z79.01 Long term (current) use of anticoagulants; N40.1 Benign prostatic hyperplasia with lower urinary tract symptoms
CPT/HCPCS: 36415; 36600; 71010; 76775; 80048; 80053; 80061; 81001; 82550; 82553; 82607; 82728; 82746; 82803; 82962; 82977; 83036; 83540; 83550; 83615; 83735; 83880; 84100; 84133; 84300; 84443; 84484; 84550; 85025; 85044; 85060; 85610; 85651; 85730; 86140; 87040; 87070; 87081; 87205; 89050; 93005; 93306; 93970; 94640; 94664; 94760; 99285; J1815